=== PATIENT | female | born 1940 | race Caucasian/White ===

== ENCOUNTER 2022-06-22 10:36 | Emergency (ER) | payer MEDICARE, BC, SELFPAY ==
[2022-06-22 11:00] VITALS: BP 142/85; PULSE 77; RESP 16; TEMP 36.7; O2SAT 97; BMI 23.6
--- NOTE | 2022-06-22 11:22 | CRLHL7_ITS ---
For Patients: As a result of the Century Cures Act, medical imaging exams and procedure reports are released immediately into your electronic medical record. You may view this report before your referring provider. If you have questions, please contact your health care provider. INDICATION: Fall, closed head injury. COMPARISON: None. TECHNIQUE: CT of the head without IV contrast. Coronal and sagittal reconstructions. FINDINGS: There is a tiny hyperdense subdural hematoma along the anterior interhemispheric fissure measuring up to 3 mm in thickness (series 2, image 30 and series 8, image 20). No mass effect or midline shift. No other intracranial hemorrhage or evidence of acute infarct. Mild generalized cerebral and cerebellar volume loss with associated ex vacuo dilation of the lateral ventricles. Moderate chronic small vessel ischemic disease. Orbits and extraocular muscles are symmetric. Polyp or mucous retention cyst in the right sphenoid sinus. The paranasal sinuses and mastoid air cells are otherwise clear. No acute fracture identified. Minimal soft tissue swelling overlying the left posterior parieto-occipital bones. IMPRESSION: : 1. Tiny acute subdural hematoma along the anterior interhemispheric fissure. Consider short-term follow-up CT to ensure stability. 2. Mild generalized cerebral volume loss and moderate chronic small vessel ischemic disease. 3. Minimal soft tissue swelling overlying the left posterior parieto-occipital bones. 4. Findings discussed with Puja Cornejo at 12:43 p.m. on 06/22/2022. Please note that all CT scans at this facility use dose modulation, iterative reconstruction, and/or weight-based dosing when appropriate to reduce radiation dose to as low as reasonably achievable. Dictated by Opal Blue MD @ 06/22/2022 12:38:13 PM (Electronically Signed)
--- NOTE | 2022-06-22 11:24 | ED.GENADULT ---
HPI - General Adult General Chief complaint: Head Injury/Pain Stated complaint: Fell bleeding from back of scalp Time Seen by Provider: 06/22/22 11:06 Source: patient Mode of arrival: ambulatory Limitations: no limitations History of Present Illness HPI narrative: 82-year-old female coming in today after falling and hitting the back of her head approximately 5.5 hours ago. She was on cleaning her car and slipped fell backwards hitting her head on the sidewalk. She felt very dizzy right away but this quickly resolved within less than minute. Has not vomited or had slurred speech. She denies any neurologic deficits. However the scalp has been bleeding and she does have a headache in the back of the head. Patient has chronic neck pain, she does not feel like her pain is any worse or any different today. She does wear a soft cervical soft collar daily. She does not take any blood thinners. Related Data Home Medications Medication Instructions Recorded Confirmed B-complex with vitamin C 1 cap PO QDAY 03/03/22 06/22/22 cholecalciferol (vitamin D3) 50 2,000 unit PO DAILY 03/03/22 06/22/22 mcg (2,000 unit) tablet magnesium oxide 400 mg (241.3 mg 800 mg PO DAILY 03/03/22 06/22/22 magnesium) tablet multivitamin 1 tab PO QAM 03/03/22 06/22/22 omega-3 acid ethyl esters 1 gram 1 cap PO QDAY 03/03/22 06/22/22 capsule potassium gluconate 500 mg (83 mg) 500 mg PO QDAY 03/03/22 06/22/22 tablet simvastatin 20 mg tablet 20 mg PO .Bedtime 03/03/22 06/22/22 vit A 300 mcg-C 200 mg-E 27 1 tab PO DAILY 03/03/22 06/22/22 mg-lutein 2 mg and minerals tablet (Ocuvite with Lutein) Allergies Allergy/AdvReac Type Severity Reaction Status Date / Time No Known Allergies Allergy Verified 06/22/22 11:07 Review of Systems Status of ROS: Reports: 10 or more systems reviewed and unremarkable except as noted in History and below [facility] Medical History History of malignant neoplasm of skin History of Mohs micrographic surgery for skin cancer History of pterygium Surgical History History of appendectomy History of bunionectomy History of carpal tunnel release History of colonoscopy History of hemorrhoidectomy History of hysterectomy History of total knee replacement History of tubal ligation History of varicose vein stripping 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 Alert and oriented. Answers questions appropriately. Mood and affect are appropriate. Thoughts are goal oriented and rational. No tangential or magical thinking noted. Patient speaks in full sentences without needing to catch her breath. Speech is not slurred or pressure. HEENT: Normocephalic . Pupils are equally round reactive to light. Extraocular muscles are intact. Conjunctivae are moist without any icterus noted. Moist mucous membranes. Neck is soft. She has no tenderness to palpation of the cervical spine. She has slightly decreased range of motion but no change from her baseline as reported per patient. She does have a laceration to the back of the scalp that is no longer bleeding. Lacerations is an L shape, approximately an inch in total length. Cardiovascular: Heart is regular rate and rhythm S1 and S2 are present without any murmurs. Lungs: Clear to auscultation bilaterally no wheezes rhonchi or rales are appreciated. Patient takes deep breaths without any discomfort. Const: Vital Signs, click to edit/add: Vital Signs - 24 hr 06/22/22 11:00 06/22/22 11:30 06/22/22 12:00 Temperature 98.0 F Pulse Rate [Left P ulse Oximeter] 77 69 68 Respiratory Rate 16 18 16 Blood Pressure [Ri ght Upper Arm] 142/85 H 129/74 128/87 Pulse Oximetry 97 95 98 Oxygen Delivery Me thod Room Air Room Air Room Air Course Course Hospital Course: Proceeded to head CT. I did not see any significant pathology. Laceration was cleaned with wound cleanser and irrigated. It was anesthetized with lidocaine with epinephrine and 4 kayy were placed without difficulty. Patient was discharged home and I received a phone call from Radiology stating that she did have a very tiny subdural hematoma. I did call the patient to relate these results and spoke with both her and her daughter were in the car. We discussed the options which would include readmission to the ER in observation. However we also discussed that it has been now 7 hours since she fell and that watchful waiting at home would also be appropriate. Patient opted to stay at home with her daughter. We discussed signs and symptoms of worsening bleeding to look out for including nausea, vomiting, neurologic deficits, worsening headache. Again I did tell her that the best option would be to watch her in the hospital, however patient felt comfortable monitoring her symptoms at home. Given the size of the hematoma and her lack of symptoms I do not feel that a repeat head CT is necessary unless her symptoms evolve. Vital Signs Vital signs: Initial Vital Signs Temperature 98.0 F 06/22/22 11:00 Temperature Source Temporal Artery Scan 06/22/22 11:00 Pulse Rate 77 06/22/22 11:00 Pulse Rhythm 06/22/22 11:00 Respiratory Rate 16 06/22/22 11:00 Blood Pressure 142/85 H 06/22/22 11:00 Blood Pressure Mean 104 06/22/22 11:00 Blood Pressure Position Supine 06/22/22 11:00 Pulse Oximetry 97 06/22/22 11:00 Oxygen Delivery Method 06/22/22 11:00 Vital Signs Temperature 98.0 F 06/22/22 11:00 Pulse Rate 77 06/22/22 11:00 Respiratory Rate 16 06/22/22 11:00 Blood Pressure 142/85 H 06/22/22 11:00 Pulse Oximetry 97 06/22/22 11:00 Oxygen Delivery Method 06/22/22 11:00 Temperature 98.0 F 06/22/22 11:00 Pulse Rate 68 06/22/22 12:00 Respiratory Rate 16 06/22/22 12:00 Blood Pressure 128/87 06/22/22 12:00 Pulse Oximetry 98 06/22/22 12:00 Oxygen Delivery Method 06/22/22 12:00 Medical Decision Making MDM Narrative Medical decision making narrative: 82-year-old female status post fall with scalp laceration stapled in the ED. We discussed symptomatic treatment, signs symptoms of infection, staple removal in 5-7 days, and reasons to return for follow-up. Patient and daughter had no other questions or concerns. Tiny subdural hematoma-plan per above. Imaging Data CT scan - head: Attestation: I have reviewed the pertinent imaging results. Radiologist's impression: CT of the head without IV contrast. Coronal and sagittal reconstructions. FINDINGS: There is a tiny hyperdense subdural hematoma along the anterior interhemispheric fissure measuring up to 3 mm in thickness (series 2, image 30 and series 8, image 20). No mass effect or midline shift. No other intracranial hemorrhage or evidence of acute infarct. Mild generalized cerebral and cerebellar volume loss with associated ex vacuo dilation of the lateral ventricles. Moderate chronic small vessel ischemic disease. Orbits and extraocular muscles are symmetric. Polyp or mucous retention cyst in the right sphenoid sinus. The paranasal sinuses and mastoid air cells are otherwise clear. No acute fracture identified. Minimal soft tissue swelling overlying the left posterior parieto-occipital bones. IMPRESSION: : 1. Tiny acute subdural hematoma along the anterior interhemispheric fissure. Consider short-term follow-up CT to ensure stability. 2. Mild generalized cerebral volume loss and moderate chronic small vessel ischemic disease. 3. Minimal soft tissue swelling overlying the left posterior parieto-occipital bones. 4. Findings discussed with Puja Cornejo at 12:43 p.m. on 06/22/2022. Discharge Plan Discharge Clinical Impression: Head injury, Fall, Laceration of scalp, Subdural hematoma Patient Disposition: Home, Self-Care Condition: Improved Additional Instructions: Keep laceration clean and dry. Okay to shower like you normally would but be careful not to pull out the kayy. Watch for signs of infection which would include redness around the laceration or purulent drainage from the laceration. [place] should be removed in 5-7 days in the clinic. Okay to use Tylenol as needed/as directed for discomfort. Prescriptions: No Action cholecalciferol (vitamin D3) 50 mcg (2,000 unit) tablet 2,000 unit PO DAILY Ocuvite with Lutein 300 mcg-200 mg-27 mg-2 mg tablet 1 tab PO DAILY simvastatin 20 mg tablet 20 mg PO .Bedtime magnesium oxide 400 mg (241.3 mg magnesium) tablet 800 mg PO DAILY potassium gluconate 500 mg (83 mg) tablet 500 mg PO QDAY omega-3 acid ethyl esters 1 gram capsule 1 cap PO QDAY multivitamin Tablet 1 tab PO QAM B-complex with vitamin C Capsule 1 cap PO QDAY Follow Up/Referrals: Brii Browne, OPERATING SYSTEMS PROGRAMMER, KITCHEN WORK SUPERVISOR [Primary Care Provider] - Stand Alone Forms: [facility]
[2022-06-22 11:30] VITALS: BP 129/74; PULSE 69; RESP 18; O2SAT 95
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
--- OUTSIDE RECORDS SUMMARY | 2022-06-22 11:37 | XMS_ITS | Encounter Summary ---
:1940 Author Organization [facility] Address [address] [place] [address] Care Team Providers Name Role Phone Jeancarlos Oquendo P.A.-C. Primary Care Provider [phone] Encounter Details Date Type Department Care Team Description 10/27/2020 Ancillary Procedure Department of Dermatology Social History Tobacco Use Types Packs/Day Years [...] 05/13/2021 relatives? How often do you attend moravian or samaritan Patient refused 05/13/2021 services? Do you belong to any clubs or organizations such as Patient refused 05/13/2021 moravian groups, unions, fraternal or athletic groups, or [...] place to sleep or slept in a halfway (including now)? Education Answer Date Recorded What is the highest level of school you have completed or 12 th grade 10/02/2019 the highest degree you have received? Sex Assigned at Date Recorded Female 02/25/2018 7:29 PM CDT documented as of this encounter Plan of Treatment Not on filedocumented as of this encounter Procedures Procedure Name Priority Date/Time Associated Comments Diagnosis DERMATOLOGY IMAGE Routine 10/27/2020 12:00 Result s for this EXAM AM CDT procedure are i n the results section. documented in this encounter Results Forehead 504-Dermatology Image Exam (10/27/2020 12:00 AM CDT) Specimen (Source) Anatomical Location Collection Method / Collectio n Time Received Time / Laterality Volume Narrative IIMS - 10/27/2020 1:29 PM CDT This order has been created and auto-finalized to support the import of images acquired without order. The clini joselyn documentation to support these images can be found on the encounter gordon t produced images. Provider Not In System IMG NON RAD IMAGING PROCEDUR ES Performing Organization Address City/State/ZIP Code Phon e Number IIMS IIMS NA documented in this encounter Visit Diagnoses Not on filedocumented in this encounter Care Teams Treater Helper Relationship Specialty Start Date End Date Jeancarlos Oquendo P.A.-C. PCP - General Family Medicine 09/01/19 12/15/[address] [place] [phone] documented as of this encounter
--- OUTSIDE RECORDS SUMMARY | 2022-06-22 11:37 | XMS_ITS | Encounter Summary ---
:1940 Author Organization [facility] Address [address] [place] [address] Care Team Providers Name Role Phone Jeancarlos Oquendo P.A.-C. Primary Care Provider [phone] Reason for Referral Physical Therapy (Routine) - Closed Specialty Diagnoses / Procedures Referred By Contact Refer red To Contact Diagnoses Strain Hip Flexor Initial Right Jeancarlos Oquendo P.A.-C. [address] [place] [phone] Referral ID Status Reason Start Date Expiration Date Visits V isits Requested Authorized [id number] Closed Service not 05/13/2021 05/13/2022 99 99 available in [facility] Reason for Visit Reason Comments Follow-up groin muscle pain on right s scott. Appointment Request (Routine) - Closed Specialty Diagnoses / Procedures Referred By Contact Refer red To Contact Family Medicine Referral ID Status Reason Start Date Expiration Date Visits Requ ested Visits Authorized [id number] Closed 2021 2022 1 1 Encounter Details Date Type Department Care Team Description 05/13/2021 Office Visit Department of Jeancarlos Alanis St rain Hip Flexor Medicine, [place] Initial Right (Primary Clinic, in [place], [address] [facility] [address]) [place], [place] [address] [facility] [address] [place], [place] [phone] (Work) [phone] Social History Tobacco Use Types Packs/Day Years [...] 05/13/2021 relatives? How often do you attend scientology or druze Patient refused 05/13/2021 services? Do you belong to any clubs or organizations such as Patient refused 05/13/2021 scientology groups, unions, fraternal or athletic groups, or [...] place to sleep or slept in a assisted (including now)? Education Answer Date Recorded What is the highest level of school you have completed or 12 th grade 10/02/2019 the highest degree you have received? Sex Assigned at Date Recorded Female 02/25/2018 7:29 PM CDT documented as of this encounter Last Filed Vital Signs Vital Sign Reading Time Taken Comments Blood Pressure 132/78 05/13/2021 9:43 AM CDT average Pulse 77 05/13/2021 9:43 AM CDT Temperature 36.2 ??C (97.1 ??F) 05/13/2021 9:43 AM CDT Respiratory Rate 16 05/13/2021 9:43 AM CDT Oxygen Saturation - - Inhaled Oxygen Concentration - - Weight 66.7 kg (147 lb 0.8 oz) 05/13/2021 9:43 AM CDT Height 163 cm (5' 4.17) 05/13/2021 9:43 AM CDT Body Mass Index 25.1 05/13/2021 9:43 AM CDT documented in this encounter Progress Notes Jeancarlos Oquendo P.A.-C. - 05/13/2021 10:00 AM CDT SUBJECTIVE CHIEF COMPLAINT / REASON FOR VISIT Emma Contreras is a 81 y.o. female who presents for evaluation of Follow-up (groin muscle pain on right side.). HISTORY OF PRESENT ILLNESS Emma groin for about three months. She says that she was getting up out of a chair and moved her right leg laterally and abducted. Since that time she has had pain in her right leg she felt a significant discomfort that day and says that she felt a lump for a while and now when she goes to lift up or flex her right hip she feels significant discomfort in her groin region. OBJECTIVE Vitals: 05/13/21 0943 BP: 132/78 BP Location: Right arm Patient Position: Sitting Cuff Size: Regular Pulse: 77 Resp: 16 Temp: 36.2 ??C TempSrc: Temporal Weight: 66.7 kg Height: 163 cm Body mass index is 25.1 kg/m??. PHYSICAL EXAMINATION In general she appears in no acute distress Groin: She does have a palpable muscle spasm in her right groin. I do question if she has had a hip flexor injury with a muscle spasm. She is able to hip flex today without much discomfort an internally and externally rotate her hip. This definitely does seem to be a musculoskeletal injury I do not appreciate any further lymphadenopathy. ASSESSMENT / PLAN #1 Strain Hip Flexor Initial Right I am going to ask for further evaluation recommendations from physical medicine rehabilitation. I amalso going to put through physical therapy consult. If her symptoms worsen or not improve with this treatment she will let us know. Total time spent today 30 minute Jeancarlos Roethler, P.A.-C. documented in this encounter Plan of Treatment Not on filedocumented as of this encounter Visit Diagnoses Diagnosis Strain Hip Flexor Initial Right - Primar y documented in this encounter Care Teams Whale Trainer Relationship Specialty Start Date End Date Jeancarlos Oquendo P.A.-C. PCP - General Family Medicine 09/01/19 12/15/[address] [place] [phone] documented as of this encounter
--- OUTSIDE RECORDS SUMMARY | 2022-06-22 11:37 | XMS_ITS | Encounter Summary ---
:1940 Author Organization [facility] Address [address] [place] [address] Care Team Providers Name Role Phone Elsewhere, Pcp Primary Care Provider Unavailable Reason for Visit Reason Comments Med Refill Encounter Details Date Type Department Care Team Description 12/16/2021 Refill Department of Family Medicine, Jeancarlos [place] P.A.-C. Med Refill [facility], in [address] [place] [phone] [place] [address] [place] [address] [phone] Social History Tobacco Use Types Packs/Day Years [...] 05/13/2021 relatives? How often do you attend congregation or zoroastrian Patient refused 05/13/2021 services? Do you belong to any clubs or organizations such as Patient refused 05/13/2021 congregation groups, unions, fraternal or athletic groups, or [...] place to sleep or slept in a long-term (including now)? Education Answer Date Recorded What is the highest level of school you have completed or 12 th grade 10/02/2019 the highest degree you have received? Sex Assigned at Date Recorded Female 02/25/2018 7:29 PM CDT documented as of this encounter Miscellaneous Notes Telephone Encounter - Chaya Gamboa L.P.NBrant - 12/16/2021 10:27 AM CDT SUBJECTIVE CHIEF COMPLAINT / REASON FOR CALL Med Refill Information Discussed Called and informed patient of the information below and she is switching to the clinic in [place] for her care now. Please change PCP to elsewhere. PLAN Disposition/Recommendation: self-care is appropriate at this time, patient encouraged to call back with questions Information/Education: patient/caller able to teach back Caller agreeable to plan of care: yes The following references were used: provider Jeancarlos Telephone Encounter - Jeancarlos Oquendo P.A.-C. - 12/16/2021 10:20 AM CDT I will give her one refill but she is overdue for a visit and blood work documented in this encounter Plan of Treatment Not on filedocumented as of this encounter Visit Diagnoses Not on filedocumented in this encounter Care Teams Assembler Fluorescent Lights Relationship Specialty Start Date End Date Elsewhere, Pcp PCP - General Internal Medicine 12/16/21 documented as of this encounter
--- OUTSIDE RECORDS SUMMARY | 2022-06-22 11:37 | XMS_ITS | Encounter Summary ---
:1940 Author Organization [facility] Address [address] [place] [address] Care Team Providers Name Role Phone Jeancarlos Oquendo P.A.-C. Primary Care Provider [phone] Reason for Visit Outpatient (Routine) - Closed Specialty Diagnoses / Procedures Referred By Contact Refer red To Contact Dermatology Diagnoses Malignant Neoplasm Of Ear Basal Cell Carcinoma Left Mark Munoz M.D. [facility] Procedures LUISITO MOHS 1-4 sites [address] [place] [address] Referral ID Status Reason Start Date Expiration Date Visits Requ ested Visits Authorized [id number] Closed 02/09/2020 02/08/2021 1 1 Encounter Details Date Type Department Care Team Description 03/25/2020 Procedure visit Department of Rashaad Harrell Malignant Neoplasm Of Dermatology sheila Lovell M.D., M.S. Ear Basal Cell [place], [place] [address] [facility] Carcinoma Left [address] [place] [phone] Social History Tobacco Use Types Packs/Day Years [...] 05/13/2021 relatives? How often do you attend roman catholic or yarsani Patient refused 05/13/2021 services? Do you belong to any clubs or organizations such as Patient refused 05/13/2021 roman catholic groups, unions, fraternal or athletic groups, or [...] place to sleep or slept in a senior living (including now)? Education Answer Date Recorded What is the highest level of school you have completed or 12 th grade 10/02/2019 the highest degree you have received? Sex Assigned at Date Recorded Female 02/25/2018 7:29 PM CDT documented as of this encounter Last Filed Vital Signs Vital Sign Reading Time Taken Comments Blood Pressure 125/66 03/25/2020 8:00 AM CDT Pulse 58 03/25/2020 8:00 AM CDT Temperature - - Respiratory Rate - - Oxygen Saturation - - Inhaled Oxygen Concentration - - Weight - - Height - - Body Mass Index - - documented in this encounter Procedure Notes Marco Matias M.D. - 03/25/2020 8:00 AM CDT PREOP INDICATION: REMOVAL. Date of Surgery: 03/25/2020 Surgeon: Dr. Harrell Panel Instrument Repairer: Dr. Matias Location: [facility]: Floor:16 Room:[facility] Visit Type: Outpatient PostOp Diagnosis: Nodular basal cell carcinoma Anatomic Location: Left posterior ear Preoperative size: 1.1 x 0.9 cm [facility] number: 9 Indication(s) for Mohs Micrographic Surgery: anatomic location where tissue conservation is critical Procedure(s): Mohs micrographic surgery with intermediate layered closure Prior to the procedure, final verification of the patient identity and correct marked surgical site was performed. Procedural pause conducted to verify: correct patient identity, procedure to be performed and as applicable, correct side and site, correct patient position, and availability of implants, special equipment or special requirements. INFORMED CONSENT Discussed the risks, benefits, alternatives, and the necessity of other members of the healthcare team participating in the procedure. All questions answered and consent given. PATIENT EDUCATION Ready to learn, no apparent learning barriers were identified; learning preferences include listening. Explained diagnosis and treatment plan; patient expressed understanding of the content. Preoperative medications: None The anesthesia used was 1% lidocaine and 0.25% bupivacaine with 1:200,000 epinephrine. The skin was prepped in a sterile fashion with Hibiclens. Histologic tumor-free margins were obtained in 1 stages (1 blocks) by standard Mohs micrographic techniques with the Mohs surgeon performing both the surgery and pathology. The final defect depth was down to level of: subcutaneous fat. Postoperative size: 1.8 x 1.4 cm. Anesthesia with 1% lidocaine with 1:200,000 epinephrine and another sterile prep were performed. An intermediate layered closure was planned, and Burow's triangles were excised from opposite poles of the defect in the direction of the skin tension lines. The wound was undermined as needed, and hemostasis was obtained with electrocoagulation. The wound edges were closed with 4-0 Vicryl, 5 0 Monocryl subcutaneous sutures and 5 0 surgical gut skin sutures. Postoperative length: 3.9 cm. Estimated blood loss: Minimal. Complications: None. Wound care: Routine. Postoperative medications: None documented in this encounter Consult Notes Marco Matias M.D. - 03/25/2020 8:00 AM CDT Referral Mark uMnoz M.D. Chief Complaint Basal cell carcinoma on the left lower posterior ear Supervised by Dr. Harrell HISTORY OF PRESENT ILLNESS is a very pleasant 79 y.o. female who presents today for treatment of basal cell carcinoma on the left lower posterior ear. The dermatologic surgery preoperative information sheet was reviewed. The patient has history of previous nonmelanoma skin cancer, hypertension, right knee replacement in March of 2018. The patient denies history of other heart disease, pacemaker, defibrillator, lung disease, liver disease, stroke, in fectious diseases (including hepatitis B, hepatitis C, or HIV), diabetes, organ transplant, bleedingor healing problems. The patient denies tobacco use and endorses occasional alcohol use. The patienttakes Aleve but otherwise does not take any blood thinners. PHYSICAL EXAM Vitals: BP 125/66, HR 58 General: Awake, alert, in no acute distress, and with appropriate affect. Skin: A limited skin examination of the forehead and left lower posterior ear was performed per patient preference. On the left lower posterior ear, there was a 1.1 x 0.9 cm well-healed scar from previous biopsy. On the forehead, there were stuck on light brown papules. IMPRESSION/REPORT/PLAN #1 Basal cell carcinoma on the left lower posterior ear We discussed with the patient our recommendation for Mohs micrographic surgery to treat this today. We discussed the risks of pain, infection, bleeding, dysesthesia, lesion recurrence, activity limitations. The patient understands that there will be a scar at this site. We discussed potential reconstru ction/wound healing options. The patient elected to proceed with Mohs surgery today. Please see the operative note for further detail. 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 PROCEDURAL PAUSE Procedural pause conducted to verify: correct patient identity, procedure to be performed, and as applicable, correct side and site, correct patient position, and availability of implants, special equipment, or special requirements. PATIENT EDUCATION Ready to learn. No apparent learning barriers were identified. Learning preferences include listening. Explained diagnosis and treatment plan; patient/guardian of patient expressed understanding of thecontent. INFORMED CONSENT Discussed the risks, benefits, alternatives, and the necessity of other members of the healthcare team participating in the procedure. All questions answered and consent given. Associated attestation - Rashaad Harrell M.D., M.S. - 03/25/2020 12:23 PM CDT Assisted by: Dr. Matias and Dr. Braden. I have heard the history and seen and examined the patient with him/her. I agree with the impressionand plan as discussed in his/her note. I participated in the entire case, including outlining of the Mohs margins, review of the slides, and design and execution of the repair. For further details, please refer to the clinic note and operative note. documented in this encounter Plan of Treatment Not on filedocumented as of this encounter Visit Diagnoses Diagnosis Malignant Neoplasm Of Ear Basal Cell Car cinoma Left documented in this encounter Administered Medications Inactive Administered Medications - up to 3 most recent administrations Medication Order MAR Action Action Date Dose Rate Site pviyxzipvxo-[id number] Given 03/25/2020 9:37 AM CDT 4 mL 0.25%-1%-1:200,000 injection 2-25 mL 2-25 mL, injection, As needed, may repeat if the patient complains of pain/discomfort at the site up to 50 mL for entire procedure, Starting on Ghazal 03/25/20 at 0812, For 1 day Given 03/25/2020 8:45 AM CDT 2 mL lidocaine-EPINEPHrine 1%-1:200,000 injection Given 03/25/2020 8: 45 AM CDT 2 mL 2-50 mL (XYLOCAINE W/EPI) 2-50 mL, injection, As needed, may repeat if the patient complains of pain/discomfort at the site up to 50 mL for entire procedure, Starting on Ghazal 03/25/20 at 0812, For 1 day documented in this encounter Care Teams Investment Underwriter Relationship Specialty Start Date End Date Jeancarlos Oquendo P.A.-C. PCP - General Family Medicine 09/01/19 12/15/[address] [place] [phone] documented as of this encounter
--- OUTSIDE RECORDS SUMMARY | 2022-06-22 11:37 | XMS_ITS | Encounter Summary ---
:1940 Author Organization [facility] Address [address] [place] [address] Care Team Providers Name Role Phone Jeancarlos Oquendo P.A.-C. Primary Care Provider Encounter Details Date Type Department Care Team Description 03/25/2020 Ancillary Procedure Department of Dermatology Social History [...] 05/13/2021 relatives? How often do you attend mu-ism or christian Patient refused 05/13/2021 services? Do you belong to any clubs or organizations such as Patient refused 05/13/2021 mu-ism groups, unions, fraternal or athletic groups, or [...] place to sleep or slept in a custodial (including now)? Education Answer Date Recorded What is the highest level of school you have completed or 12 th grade 10/02/2019 the highest degree you have received? Sex Assigned at Date Recorded Female 02/25/2018 7:29 PM CDT documented as of this encounter Plan of Treatment Not on filedocumented as of this encounter Procedures Procedure Name Priority Date/Time Associated Comments Diagnosis DERMATOLOGY IMAGE Routine 03/25/2020 12:15 Result s for this EXAM PM CDT procedure are i n the results section. documented in this encounter Results neck, left postauricular 9 Mohs micrographic surgery-Dermatology Image Exam (03/25/2020 12:15 PM CDT) Specimen (Source) Anatomical Collection Method Collection Time Re ceived Time Location / / Volume Laterality 03/25/2020 12:00 PM CDT Narrative IIMS - 03/25/2020 1:16 PM CDT This order has been created [...] on filedocumented in this encounter Care Teams Tailing Machine Operator Relationship Specialty Start Date End Date Jeancarlos Oquendo P.A.-C. PCP - General Family Medicine 09/01/19 12/15/21 [address] [place] [phone] documented as of this encounter
--- OUTSIDE RECORDS SUMMARY | 2022-06-22 11:37 | XMS_ITS | Encounter Summary ---
:1940 Author Organization [facility] Address [address] [place] [address] Care Team Providers Name Role Phone Jeancarlos Oquendo P.A.-C. Primary Care Provider [phone] Encounter Details Date Type Department Care Team Description 08/31/2020 Orders Only [facility] PCP [facility] Sa pricila Reeves M.D. [address] [place], [place] [phone] (Wo rk) Social History Tobacco Use Types Packs/Day Years [...] 05/13/2021 relatives? How often do you attend pentecostal or orthodoxy Patient refused 05/13/2021 services? Do you belong to any clubs or organizations such as Patient refused 05/13/2021 pentecostal groups, unions, fraternal or athletic groups, or [...] place to sleep or slept in a skilled nursing (including now)? Education Answer Date Recorded What is the highest level of school you have completed or 12 th grade 10/02/2019 the highest degree you have received? Sex Assigned at Date Recorded Female 02/25/2018 7:29 PM CDT documented as of this encounter Plan of Treatment Not on filedocumented as of this encounter Visit Diagnoses Not on filedocumented in this encounter Care Teams Icu Manager Relationship Specialty Start Date End Date Jeancarlos Oquendo P.A.-C. PCP - General Family Medicine 09/01/19 12/15/[address] [place] [phone] documented as of this encounter
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
--- OUTSIDE RECORDS SUMMARY | 2022-06-22 11:37 | XMS_ITS | Encounter Summary ---
:[address] [facility] Address [address] [place] [address] Care Team Providers Name Role Phone Jeancarlos Oquendo P.A.-C. Primary Care Provider [phone] Reason for Visit Outpatient (Routine) - Closed Specialty Diagnoses / Procedures Referred By Contact Refer red To Contact Dermatology Diagnoses Lesion Skin Jeancarlos Oquendo P.A.-C. [place] [address] [place] [address] Referral ID Status Reason Start Date Expiration Date Visits V isits Requested Authorized [id number] Closed Specialty 03/31/2021 03/31/2022 1 1 Services Required Encounter Details Date Type Department Care Team Description 04/07/2021 Comprehensive Visit Department of Nelly Carmen Kerato sis Actinic (Primary Dx); Dermatology in [place], [facility], Keratosis Ty orrheic Inflamed; [place], [place] Licha Keratosis Seborrheic [address] [facility] [address] [place] [phone] Social History Tobacco Use Types Packs/Day Years [...] 05/13/2021 relatives? How often do you attend worship or pentecostal Patient refused 05/13/2021 services? Do you belong to any clubs or organizations such as Patient refused 05/13/2021 worship groups, unions, fraBrain Parade or athletic groups, or school groups? How [...] place to sleep or slept in a chcf (including now)? Education Answer Date Recorded What is the highest level of school you have completed or 12 th grade 10/02/2019 the highest degree you have received? Sex Assigned at Date Recorded Female 02/25/2018 7:29 PM CDT documented as of this encounter Consult Notes Nelly Carmen P.A.-C. - 04/07/2021 11:20 AM CDT REFERRED BY Jeancarlos Oquendo P.A.-C. CHIEF COMPLAINT/REASON FOR VISIT Skin lesion Patient seen and discussed with supervising packaging sales consultant, Dr. Clark, who evaluated the patient and concurs with the assessment and plan. HISTORY OF PRESENT ILLNESS Ms. Emma Contreras is a pleasant 80 y.o. female who presents today for evaluation of a skin lesion. Patient has a lesion of concern on her left scientology today. This lesion was frozen at her last visit at [facility] D[facility] in October of 2020 as an irritated seborrheic keratosis. Patient reports this lesion has remained tender and she is wondering if she can have treatment again today. Patient has history of multiple nonmelanoma skin cancers. Allergies Allergen Reactions ??? Latex Other (see comments) Only reacts to powdered latex gloves PAST MEDICAL HISTORY Negative for skin cancer FAMILY HISTORY Negative for skin cancer PHYSICAL EXAM General: Awake, alert, in no acute distress, and with appropriate affect. Skin: I have examined the face per patient request. Simeon skin type II. Involving the right jawline and left scientology are pink to red macules with overlying adherent scale consistent with actinic keratoses. Involving patients lesion of concern on her left scientology is a waxy, inflamed, brown, stuck on papule consistent with inflamed seborrheic keratosis. Involving right scientology is a waxy, inflamed, brown, stuck on papule. IMPRESSION/REPORT/PLAN #1 Actinic Keratoses x 2, cryotherapy performed, right jawline and left scientology Actinic keratoses are pre-cancerous skin growths caused by sun exposure. Treatment is recommended and medically indicated. A total of 2 actinic keratosis were treated with liquid nitrogen. Location: Right jawline and left times. After explaining the procedure, discussing the associated risks, benefits, and alternatives, and obtaining verbal informed consent, the lesion(s) underwent treatment with liquid nitrogen cryotherapy inthe standard fashion with two freeze-thaw cycles. The patient tolerated the procedure well. Aftercare instructions were provided in writing and verbal form to the patient. Should any of these lesions recur, the patient should return for biopsy or further evaluation. #2 Inflamed seborrheic keratosis A total of 2 inflamed seborrheic keratosis were treated with liquid nitrogen cryotherapy on the lefttemple and right scientology. After explaining the procedure, discussing the associated risks, benefits, and alternatives, and obtaining verbal informed consent, the lesion(s) underwent treatment with liquid nitrogen cryotherapy inthe standard fashion. Wound care was discussed. Patient offered educational materials. #3 Seborrheic keratoses The benign nature of the skin lesion(s) was discussed with the patient. No treatment is required. I recommend continued observation. Should symptoms or changes develop related to this condition, I would recommend a return visit for reassessment. PATIENT EDUCATION Ready to learn. No apparent learning barriers were identified. Learning preferences include listening. Explained diagnosis and treatment plan; patient/guardian of patient expressed understanding of thecontent. Associated attestation - Mely Clark M.D. - 04/07/2021 11:46 AM CDT I have reviewed the history, saw and evaluated the patient, discussed the management, and agree withthe impression and plan as documented by Nelly Carmen P.A.-C. I was immediately available for theentirety of the procedure(s) and present for the payan and critical portions. documented in this encounter Plan of Treatment Not on filedocumented as of this encounter Visit Diagnoses Diagnosis Keratosis Actinic - Primary Keratosis Seborrheic Inflamed Keratosis Seborrheic documented in this encounter Care Teams Dairy Feed Worker Relationship Specialty Start Date End Date Jeancarlos Oquendo P.A.-C. PCP - General Family Medicine 09/01/19 12/15/[address] [place] [phone] documented as of this encounter
--- OUTSIDE RECORDS SUMMARY | 2022-06-22 11:37 | XMS_ITS | Encounter Summary ---
:1940 Author Organization [facility] Address [address] [place] [address] Care Team Providers Name Role Phone Jeancarlos Oquendo P.A.-C. Primary Care Provider [phone] Reason for Visit Reason Onset Date Comments Outpatient COVID-19 Testing 06/15/2020 Encounter Details Date Type Department Care Team Description 06/15/2020 External Outreach Department of Kurt Dominique Infect ion [facility] Internal Medicine in [place], D[place]. Respiratory (Primary [place], [place] [address] Dx) [address] [place] [phone] Social History Tobacco Use Types Packs/Day Years [...] 05/13/2021 relatives? How often do you attend mandaen or taoism Patient refused 05/13/2021 services? Do you belong to any clubs or organizations such as Patient refused 05/13/2021 mandaen groups, unions, fraternal or athletic groups, or [...] place to sleep or slept in a fdc (including now)? Education Answer Date Recorded What is the highest level of school you have completed or 12 th grade 10/02/2019 the highest degree you have received? Sex Assigned at Date Recorded Female 02/25/2018 7:29 PM CDT documented as of this encounter Progress Notes Julio Dominguez, RBrantMCaroline - 06/15/2020 3:43 PM CST Encounter created for the drive-through COVID-19 testing. OGRAPH INSPECTOR documented in this encounter Miscellaneous Notes Addendum Note - Julio Dominguez R.MCaroline - 06/15/2020 3:43 PM PHOTOGRAPH INSPECTOR Addended by: JULIO DOMINGUEZ on: 06/15/2020 07:28 PM Modules accepted: Orders OGRAPH INSPECTOR documented in this encounter Plan of Treatment Not on filedocumented as of this encounter Visit Diagnoses Diagnosis Infection Upper Respiratory - Primary documented in this encounter Additional Health Concerns Infection Onset Date Last Indicated Resolved Time COVID19 Pending 06/15/2020 06/15/2020 06/15/2020 7:28 PM PHOTOGRAPH INSPECTOR documented as of this encounter Care Teams Felt Hanger Relationship Specialty Start Date End Date Jeancarlos Oquendo P.A.-C. PCP - General Family Medicine 09/01/19 12/15/21 [address] [facility] [place] [phone] documented as of this encounter
--- OUTSIDE RECORDS SUMMARY | 2022-06-22 11:37 | XMS_ITS | Encounter Summary ---
:1940 Author Organization [facility] Address [address] [place] [address] Care Team Providers Name Role Phone Jeancarlos Oquendo P.A.-C. Primary Care Provider [phone] Encounter Details Date Type Department Care Team Description 05/02/2021 Orders Only [facility] Sa pricila Reeves M.D. [address] [place], [place] [phone] (Wo rk) Social History [...] How often do you attend mu-ism or gnosticist Patient refused 05/13/2021 services? Do you belong [...] place to sleep or slept in a m[facility] (including now)? Education Answer Date Recorded What is the highest level of school you have completed or 12 th grade 10/02/2019 the highest degree you have received? Sex Assigned at Date Recorded Female 02/25/2018 7:29 PM CDT documented as of this encounter Plan of Treatment Not on filedocumented as of this encounter Visit Diagnoses Not on filedocumented in this encounter Care Teams Natural Resources Technician Relationship Specialty Start Date End Date Jeancarlos Oquendo P.A.-C. PCP - General Family Medicine 09/01/19 12/15/[address] [place] [phone] documented as of this encounter
--- OUTSIDE RECORDS SUMMARY | 2022-06-22 11:37 | XMS_ITS | Encounter Summary ---
:1940 Author Organization [facility] Address [address] [place] [address] Care Team Providers Name Role Phone Jeancarlos Oquendo P.A.-C. Primary Care Provider [phone] Encounter Details Date Type Department Care Team Description 06/02/2020 Clinical Communication Department of Leni Parrish, Internal Medicine in [facility], [place] D.N.P. [address] [place] [phone] Social History Tobacco Use Types Packs/Day Years [...] 05/13/2021 relatives? How often do you attend islam or hindu Patient refused 05/13/2021 services? Do you belong to any clubs or organizations such as Patient refused 05/13/2021 islam groups, unions, fraternal or athletic groups, or [...] this encounter Miscellaneous Notes Telephone Encounter - Becki Tinoco R.N. - 06/10/2020 10:40 AM SPECIAL EQUIPMENT TECHNICIAN Call returned to patient and patient reached by phone. Informed that her external lab workfrom 05/09/20 look good and per Leni Parrish, she should hold all of her supplements the morning of her procedure and her stop her fish oil 5 days prior to her procedure. Patient verbalized understanding and agreement with instructions. IAL EQUIPMENT TECHNICIAN Telephone Encounter - Nydia Ravi - 06/10/2020 8:21 AM CST [phone] please call IAL EQUIPMENT TECHNICIAN Telephone Encounter - Carina Cote, L.P.N. - 06/09/2020 9:41 AM SPECIAL EQUIPMENT TECHNICIAN Left message to call back . IAL EQUIPMENT TECHNICIAN Telephone Encounter - Grisel Nevarez - 06/08/2020 5:45 PM CST Reason for Communication: Patient is returning a call to the nurse Current Phone Number: [phone] Can Nursing/Provider leave a detailed message?: yes Did the patient refuse triage through Nurse line? (for symptom based concerns): na Action Needed: Please advise Name of Medication (if relevant): IAL EQUIPMENT TECHNICIAN Telephone Encounter - Roxann Beraden L.P.N. - 06/07/2020 4:36 PM SPECIAL EQUIPMENT TECHNICIAN Message left for patient to return my call. IAL EQUIPMENT TECHNICIAN Telephone Encounter - Leni Parrish APRN C.N.PBrant, D.N.P. - 06/07/2020 12:40 PM CST Reviewed lab work from external lab on 05/09 and they look good. She should hold all of her supplements the morning of her procedure. Stop fish oil 5 days prior. Please let me know if there are any other questions or concerns IAL EQUIPMENT TECHNICIAN Telephone Encounter - Carina Cote L.P.N. - 06/07/2020 12:35 PM SPECIAL EQUIPMENT TECHNICIAN SUBJECTIVE CHIEF COMPLAINT / REASON FOR CALL No chief complaint on file. Information Discussed Patient states she did have pre op labs recently. Patient is also wondering what medications she should hold prior to surgery. Please advise. PLAN Disposition/Recommendation: notified provider and awaiting recommendations Information/Education: patient/caller able to teach back Caller agreeable to plan of care: yes The following references were used: provider Shivani IAL EQUIPMENT TECHNICIAN Telephone Encounter - Boni Butts - 06/02/2020 5:33 PM CDT Patient called in, returning call from [facility] nurse. Unable to get a hold of nurse. Please call patientback. Telephone Encounter - Roxann Bearden L.P.N. - 06/02/2020 4:44 PM CDT Message left for patient to return my call. Telephone Encounter - Leni Parrish APRN C.N.P., D.N.P. - 06/02/2020 3:57 PM CDT Can you please contact patient and find out if she did her labs for her preop exam today. If not shewill need to come back to have these done before I can clear her for her surgery. She can have labs done either here or in [place] whichever is easier for her. Thank you documented in this encounter Plan of Treatment Not on filedocumented as of this encounter Visit Diagnoses Not on filedocumented in this encounter Care Teams Alloy Weigher Relationship Specialty Start Date End Date Jeancarlos Oquendo P.A.-C. PCP - General Family Medicine 09/01/19 12/15/[address] [place] [phone] documented as of this encounter
--- OUTSIDE RECORDS SUMMARY | 2022-06-22 11:37 | XMS_ITS | Encounter Summary ---
:[address] [facility] Address [address] [place] [address] Care Team Providers Name Role Phone Jeancarlos Oquendo P.A.-C. Primary Care Provider [phone] Encounter Details Date Type Department Care [...] How often do you attend mandaen or baptist Patient refused 05/13/2021 services? Do you belong [...] place to sleep or slept in a nursing home (including now)? Education Answer Date Recorded What [...] Associated Comments Diagnosis DERMATOLOGY IMAGE Routine 03/25/2020 12:05 Result s for this EXAM PM CDT procedure are i n the results section. documented in this encounter Results neck, left postauricular 9 Mohs micrographic surgery-Dermatology Image Exam (03/25/2020 12:05 PM CDT) Specimen (Source) Anatomical Collection Method [...] on filedocumented in this encounter Care Teams Cripple Worker Relationship Specialty Start Date End Date Jeancarlos Oquendo P.A.-C. PCP - General Family Medicine 09/01/19 12/15/21 [address] [place] [phone] documented as of this encounter
--- OUTSIDE RECORDS SUMMARY | 2022-06-22 11:37 | XMS_ITS | Encounter Summary ---
:1940 Author Organization [facility] Address [address] [place] [address] Care Team Providers Name Role Phone Jeancarlos Oquendo P.A.-C. Primary Care Provider Reason for Visit Reason Comments Pre-op Exam Appointment Request (Routine) - Closed Specialty Diagnoses / Procedures Referred By Contact Refer red To Contact Community Internal Medicine Referral ID Status Reason Start Date Expiration Date Visits Requ ested Visits Authorized [id number] Closed 05/25/2020 05/25/2021 1 1 Encounter Details Date Type Department Care Team Description 06/02/2020 Comprehensive Visit Department of Leni Parrish Pre erative Exam Internal Medicine L, BRISKET PULLER, (Primary D x) in [place], C.N.PBrant, D.N.P[address] [place] [phone] Social History Tobacco Use Types Packs/Day Years [...] 05/13/2021 relatives? How often do you attend confucianism or adventist Patient refused 05/13/2021 services? Do you belong to any clubs or organizations such as Patient refused 05/13/2021 confucianism groups, unions, fraternal or athletic groups, or [...] place to sleep or slept in a prison (including now)? Education Answer Date Recorded What is the highest level of school you have completed or 12 th grade 10/02/2019 the highest degree you have received? Sex Assigned at Date Recorded Female 02/25/2018 7:29 PM CDT documented as of this encounter Last Filed Vital Signs Vital Sign Reading Time Taken Comments Blood Pressure 139/70 06/02/2020 1:42 PM CDT Pulse 63 06/02/2020 1:42 PM CDT Temperature 36 ??C (96.8 ??F) 06/02/2020 1:42 PM CDT Respiratory Rate 16 06/02/2020 1:42 PM CDT Oxygen Saturation - - Inhaled Oxygen Concentration - - Weight 64.9 kg (143 lb 1.3 oz) 06/02/2020 1:42 PM CDT Height - - Body Mass Index 24.52 10/02/2019 9:37 AM WAREHOUSE ORDER PULLER documented in this encounter Patient Instructions Patient InstructionsLeni Parrish APRN, C.N.P., D.N.P. - 06/02/2020 1:30 PM CDT Call us with the fax number for your surgery team. Ask to talk to the nurse documented in this encounter Progress Notes Leni Parrish APRN, C.N.P., Liliya.N.P. - 06/02/2020 1:30 PM CDT SUBJECTIVE CHIEF COMPLAINT Preoperative exam Emma is a very pleasant 80 y.o. female who presents for Preoperative exam Procedure being done: Left and right cataract surgery Planned Procedure date: 06/21/2020 the left eye, 06/28/2020 right eye Location: [facility] Recent major Illnesses: None Activity tolerance: METS >4 able to walk flight of stairs without any chest pain or shortness of breath. COPD/Asthma:No history of COPD/Asthma and Denies and shortness of breath or upper respiratory symptoms Obstructive sleep apnea:No known history of obstructive sleep apnea Diabetes:No history of diabetes Hypertension: No history of hypertension not currently on medications and Blood pressure today is 139/70 CAD:No history of coronary artery disease and Denies any chest pain CHF:No history of CHF, denies any shortness of breath, denies any recent sudden weight gain and denies any increased swelling Bleeding/thrombosis:Denies any increased bleeding or bruising, not currently on any antiplatelet or anticoagulation medications and no history of clotting Skin:Denies any new cuts, scraps or wounds Renal:No history of renal dysfunction Last menstrual period:Postmenopausal SOCIAL HISTORY Tobacco: denies current tobacco use ETOH: denies current alcohol use Drugs: Denies any drug use Transportation: daughter will be transporting to and from the procedure Glasses/contacts: Wears glasses Hearing aids: none Dentures: full upper and full lower PAST MEDICAL HISTORY Patient Active Problem List Diagnosis ??? Varicose Vein Lower Extremity Bilateral ??? Primary Osteoarthritis Multiple Sites ??? Gastroesophageal Reflux Disease Without Esophagitis ??? Hyperlipidemia Mixed ??? Anxiety PAST SURGICAL HISTORY Past anesthesia reactions: No known history of anesthesia reaction. Past Surgical History: Procedure Laterality Date ??? APPENDECTOMY ??? DECOMPRESSION OF MEDIAN NERVE N/A 2014 Carpal tunnel release ??? EXCISION OF BUNION N/A Bunionectomy ??? HEMORRHOIDECTOMY N/A 12/19/2003 Hemorrhoidectomy ??? HYSTERECTOMY ??? LIGATION OF FALLOPIAN TUBE N/A 08/20/1990 Tubal ligation ??? OTHER CONVERTED SHX (SEE COMMENT) N/A 10/12/2016 >Mohs micrographic surgery with partial primary closure. ??? OTHER SURGICAL HISTORY N/A 07/14/2016 Pterygium excision ??? TOTAL KNEE ARTHROPLASTY Right 03/26/2018 ??? VARICOSE VEIN STRIPPING N/A 04/22/2008 Varicose vein stripping FAMILY HISTORY No family history of anesthesia reactions. Family History Relation Problem Comments Mother ( at age 60) MVA - Motor vehicle accident Father () Aneurysm AAA Coronary artery disease Sister (Alive) Hypertension Sister - jennifer () Cancer Coronary artery disease Hyperlipidemia Hypertension Brother () Malnutrition Six weeks of age Daughter - nichol (Alive) Hypertension Daughter - Oziel (Alive) Hypertension Daughter - kasia (Alive) Cancer Hypertension Aunt - Maternal (Alive) TB - Pulmonary tuberculosis CURRENT MEDICATIONS Reviewed patient???s medication list and indicated medications that should be taken day of surgery and which should be held. Advised no use of over the counter NSAIDs or supplements at least 5 days prior to surgery. Current Outpatient Medications Medication Sig ??? cholecalciferol, vitamin D3, (cholecalciferol) 1,000 Unit tablet Take 1,000 Units by mouth daily. ??? ketorolac (ACULAR) 0.5 % ophthalmic solution ??? MAGNESIUM ORAL Take by mouth daily. ??? meclizine (ANTIVERT) 12.5 mg tablet TK 2 TS PO TID PRF VERTIGO OR DIZZINESS ??? omega 9-jjh-ijl-fish oil 1,000 mg (120 mg-180 mg) capsule Take by mouth daily. ??? polymyxin B-trimethoprim (POLYTRIM) 10,000 unit- 1 mg/mL ophthalmic solution ??? prednisoLONE acetate (PRED FORTE) 1 % ophthalmic suspension ??? UNABLE TO FIND daily. Prevagen ??? vitamin A,C,C-btuami-sxbvtgrv (OCUVITE W/LUTEIN) 1,000 Unit-200 mg-60 Unit-2 mg tablet Take 1 tablet by mouth 2 (two) times a day. ??? acetaminophen (TYLENOL) 325 mg tablet Take 325 mg by mouth every 4 (four) hours as needed for pain. Generally 1 dose on a rare basis ALLERGIES Allergies Allergen Reactions ??? Latex Other (see comments) Only reacts to powdered latex gloves Constitutional: Negative for fatigue and fever. Skin: Negative for skin rash. Eyes: Negative for visual problems. Respiratory: Negative for coughing up mucus (phlegm), dry cough, dyspnea, sleep disturbances due to breathing and wheezing. Cardiovascular: Negative for chest pain, pressure or tightness, swelling in the legs or feet and shortness of breath when lying flat. Gastrointestinal: Negative for abdominal (belly) pain or cramping, blood in stool, constipation, diarrhea, nausea, vomiting and difficulty swallowing. Genitourinary: Negative for difficulty urinating and pain with urination. Hematologic: Negative for bruises or bleeds easily. Psychiatric/Behavioral: Negative for stop breathing, choking, or gasping while asleep. OBJECTIVE Constitutional General: She is not in acute distress. Appearance: She is well-developed. She is not diaphoretic. HENT Head: Normocephalic and atraumatic. Nose: Nose normal. Mouth/Throat: Pharynx: No oropharyngeal exudate. Eyes Pupils: Pupils are equal, round, and reactive to light. Neck Musculoskeletal: Normal range of motion and neck supple. Trachea: No tracheal deviation. Cardiovascular Rate and Rhythm: Normal rate and regular rhythm. Heart sounds: Normal heart sounds. No murmur. No friction rub. No gallop. Pulmonary Effort: Pulmonary effort is normal. No respiratory distress. Breath sounds: Normal breath sounds. No wheezing or rales. Musculoskeletal Normal range of motion. Skin General: Skin is warm and dry. Neurological Mental Status: She is alert and oriented to person, place, and time. Psychiatric Behavior: Behavior normal. VITAL SIGNS: BP 139/70 (BP Location: Right arm, Patient Position: Sitting, Cuff Size: Regular) Pulse 63 Temp 36 ??C (Temporal) Resp 16 Wt 64.9 kg BMI 24.52 kg/m?? ASSESSMENT / PLAN 1. Preoperative Exam Cardiovascular risk: no history of CAD, no history of CFH, denies chest pain and no history of hypertension with a blood pressure today of 139/70 Airway risk: no history of COPD, no history of Asthma, denies any shortness of breath, denies any respiratory symptoms and no history of obstructive sleep apnea Bleeding/clotting risk: no known increased risk, not currently on any antiplatelet or anticoagulation medications and no history of clotting risk:postmenopausal Dorthea is medically optimized for this procedure. No further workup necessary at this time. - CBC with Differential, Blood; Future - Basic Metabolic Panel; Future - ECG 12 Lead; Future documented in this encounter Plan of Treatment Not on filedocumented as of this encounter Visit Diagnoses Diagnosis Preoperative Exam - Primary documented in this encounter Care Teams Machine Clothing Worker Relationship Specialty Start Date End Date Jeancarlos Oquendo P.A.-C. PCP - General Family Medicine 09/01/19 12/15/21 [address] [place] [phone] documented as of this encounter
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
--- OUTSIDE RECORDS SUMMARY | 2022-06-22 11:37 | XMS_ITS | Encounter Summary ---
:1940 Author Organization [facility] Address [address] [place] [address] Care Team Providers Name Role Phone Kemar Oquendo P.A.-C. Primary Care Provider [phone] Reason for Referral Outpatient (Routine) - Closed Specialty Diagnoses / Procedures Referred By Contact Refer red To Contact Dermatology Diagnoses Lesion Skin Kemar Oquendo P.A.-C. [facility] [address] [place] [phone] Referral ID Status Reason Start Date Expiration Date Visits V isits Requested Authorized [id number] Closed Specialty 03/31/2021 03/31/2022 1 1 Services Required Reason for Visit Reason Comments Referral Encounter Details Date Type Department Care Team Description 03/30/2021 Clinical Communication [facility], [place] MODE C.NBrantPBrant [facility], in [address] [address] Social History Tobacco Use Types Packs/Day Years [...] 05/13/2021 relatives? How often do you attend sikh or pentecostalism Patient refused 05/13/2021 services? Do you belong to any clubs or organizations such as Patient refused 05/13/2021 sikh groups, unions, fraternal or athletic groups, or [...] place to sleep or slept in a longterm (including now)? Education Answer Date Recorded What is the highest level of school you have completed or 12 th grade 10/02/2019 the highest degree you have received? Sex Assigned at Date Recorded Female 02/25/2018 7:29 PM CDT documented as of this encounter Miscellaneous Notes Telephone Encounter - Zaida López - 04/01/2021 9:08 AM CDT She is scheduled with [place] Addendum Note - Kemar Oquendo P.A.-C. - 03/31/2021 5:20 PM CDT Addended by: KEMAR OQUENDO on: 03/31/2021 05:20 PM Modules accepted: Orders Telephone Encounter - Daryn Howard - 03/30/2021 12:23 PM CDT RST unable to use Return to provider in another area orders for DERM. Please order a consult instead. documented in this encounter Plan of Treatment Scheduled Referrals Name Type Priority Associated Order Schedule Diagnoses Dermatology - General Outpatient Referral Routine Lesion Skin Expected: consult (clinic) 03/31/2021 (Approximate), Expires: 03/31/2024 documented as of this encounter Visit Diagnoses Diagnosis Lesion Skin - Primary documented in this encounter Care Teams Fine Arts Teacher Relationship Specialty Start Date End Date Kemar Oquendo P.A.-C. PCP - General Family Medicine 09/01/19 12/15/21 [address] [place] [phone] documented as of this encounter
--- OUTSIDE RECORDS SUMMARY | 2022-06-22 11:37 | XMS_ITS | Encounter Summary ---
:1940 Author Organization [facility] Address [address] [place] [address] Care Team Providers Name Role Phone Elsewhere, Pcp Primary Care Provider Unavailable Reason for Visit Reason Comments Med Refill Encounter Details Date Type Department Care Team Description 03/21/2022 Refill Department of Family Medicine, Jeancarlos Sherman P.A.-C. Med Refill [facility], in [address] [place] [phone] [place] [address] [place] [address] [phone] Social History Tobacco Use Types Packs/Day Years [...] 05/13/2021 relatives? How often do you attend bahai or scientology Patient refused 05/13/2021 services? Do you belong to any clubs or organizations such as Patient refused 05/13/2021 bahai groups, unions, fraternal or athletic groups, or [...] this encounter Miscellaneous Notes Telephone Encounter - Misti Severino RDN, LD - 03/22/2022 8:43 AM CDT PCP Elsewhere; pt switched to clinic in [place] for care (see refill encounter from 12/16/21). documented in this encounter Plan of Treatment Not on filedocumented as of this encounter Visit Diagnoses Not on filedocumented in this encounter Care Teams Geoint Analyst Relationship Specialty Start Date End Date Elsewhere, Pcp PCP - General Internal Medicine 12/16/21 documented as of this encounter
--- OUTSIDE RECORDS SUMMARY | 2022-06-22 11:37 | XMS_ITS | Encounter Summary ---
:1940 Author Organization [facility] Address [address] [place] [address] Care Team Providers Name Role Phone Jeancarlos Oquendo P.A.-C. Primary Care Provider [phone] Reason for Referral Outpatient (Routine) - Closed Specialty Diagnoses / Procedures Referred By Contact Refer red To Contact Dermatology Diagnoses Keratosis Actinic Jeancarlos Oquendo P.A.-C. [facility] [address] [place] [address] Referral ID Status Reason Start Date Expiration Date Visits V isits Requested Authorized [id number] Closed Specialty 10/14/2020 10/14/2021 1 1 Services Required ANICAL LEAD Reason for Visit Reason Comments Follow-up lab results Outpatient (Routine) - Closed Specialty Diagnoses / Procedures Referred By Contact Refer red To Contact Family Medicine Diagnoses Hyperlipidemia Mixed Screening Examination Diabetes Mellitus Jeancarlos Oquendo [facility] [place] [facility] [place] [address] [place] [phone] Referral ID Status Reason Start Date Expiration Date Visits Requ ested Visits Authorized [id number] Closed 10/02/2019 10/01/2020 1 1 Encounter Details Date Type Department Care Team Description 10/14/2020 Comprehensive Visit Department of Clementina Oquendo (Primary Dx); Family Medicine, Jeancarlos, Hyperlipide austin Mixed; [facility], P.A.-C. Screening Examination Diabetes Mellitus; in [place], [address] Keratosis Actinic; [place], [place] Incontinence Urinary; [address] [phone] General Medical Examination Adult [address] J[address]EN [phone] (Work) [phone] Social History Tobacco Use Types Packs/Day Years [...] 05/13/2021 relatives? How often do you attend latter day or denominational Patient refused 05/13/2021 services? Do you belong to any clubs or organizations such as Patient refused 05/13/2021 latter day groups, unions, fraternal or athletic groups, or [...] Sign Reading Time Taken Comments Blood Pressure 124/64 10/14/2020 11:52 AM MECHANICAL LEAD Pulse 68 10/14/2020 11:52 AM MECHANICAL LEAD Temperature 36.3 ??C (97.3 ??F) 10/14/2020 11:52 AM MECHANICAL LEAD Respiratory Rate - - Oxygen Saturation - - Inhaled Oxygen Concentration - - Weight 64 kg (141 lb 1.5 oz) 10/14/2020 11:52 AM MECHANICAL LEAD Height - - Body Mass Index 24.18 10/02/2019 9:37 AM MECHANICAL LEAD documented in this encounter H&P Notes Jeancarlos Oquendo P.A.-C. - 10/14/2020 12:00 PM CST CHIEF COMPLAINT / REASON FOR VISIT Emma Contreras is a 80 y.o. female who presents for evaluation of Follow-up (lab results). HISTORY OF PRESENT ILLNESS Emma presents today for her yearly medication review. Overall she is doing well but she quit taking her statin last year in her lipids have gone up substantially. It is important that she gets backon her statin. She has been walking a couple miles on most days and overall is feeling great she lost her a couple years ago but overall seems to be doing okay socially. She is planning to moveto an apartment from her big house which will be helpful for her. She has some anxiety but overall this has been pretty well controlled she says activity seems to help with this quite a bit PAST MEDICAL HISTORY: Patient Active Problem List Diagnosis ??? Primary Osteoarthritis Multiple Sites ??? Hyperlipidemia Mixed ??? Anxiety PAST SURGICAL HISTORY: Past Surgical History: Procedure Laterality Date ??? [...] VEIN STRIPPING N/A 04/22/2008 Varicose vein stripping SOCIAL HISTORY: Social History Tobacco Use ??? Smoking status: Former Smoker Types: Cigarettes Quit date: 1986 Years since quittin.2 ??? Smokeless tobacco: Never Used ??? Tobacco comment: occasional smoker Substance Use Topics ??? Alcohol use: Yes Frequency: 2-4 times a month Drinks per session: 1 or 2 Binge frequency: Never Comment: 1 or 2 weekly (not always) ??? Drug use: No FAMILY HISTORY: Family History Problem Relation Age of Onset ??? Aneurysm Father AAA ??? Coronary artery disease Father ??? MVA - Motor vehicle accident Mother ??? Hypertension Sister ??? Other (Malnutrition) Brother Six weeks of age ??? Hypertension Sister ??? Hyperlipidemia Sister ??? Coronary artery disease Sister ??? Cancer Sister ??? TB - Pulmonary tuberculosis Aunt ??? Hypertension Daughter ??? Hypertension Daughter ??? Hypertension Daughter ??? Cancer Daughter MEDICATIONS: Current Outpatient Medications Medication Sig Dispense Refill ??? artificial tears with lanolin (REFRESH P.M.) ophthalmic ointment 0.5 inches 3 (three) times a day as needed for dry eyes. ??? cholecalciferol, vitamin D3, (cholecalciferol) 1,000 Unit tablet Take 1,000 Units by mouth daily. ??? MAGNESIUM ORAL Take by mouth daily. ??? omega 4-ant-arw-fish oil 1,000 mg (120 mg-180 mg) capsule Take by mouth daily. ??? vitamin A,C,V-vtapbj-jabbvgmx (OCUVITE W/LUTEIN) 1,000 Unit-200 mg-60 Unit-2 mg tablet Take 1 tablet by mouth 2 (two) times a day. ??? simvastatin (ZOCOR) 20 mg tablet Take 1 tablet (20 mg total) by mouth at bedtime. 90 tablet 3 No current facility-administered medications for this visit. ALLERGIES: Allergies Allergen Reactions ??? Latex Other (see comments) Only reacts to powdered latex gloves OBJECTIVE Vitals: 10/14/20 1152 BP: 124/64 BP Location: Right arm Patient Position: Sitting Cuff Size: Regular Pulse: 68 Temp: 36.3 ??C Weight: 64 kg Body mass index is 24.18 kg/m??. PHYSICAL EXAMINATION General: Patient appears in no acute distress. ENT: TMs no erythema. Throat no erythema. Neck: No lymphadenopathy. No thyroid masses. Heart: Regular rate and rhythm. No murmurs. Lungs: Clear to auscultation. Abdomen: Soft and nontender to palpation. IMPRESSION / REPORT / PLAN #1 Hyperlipidemia Mixed Her lipids are quite elevated am going to start her back on the simvastatin she previously toleratedit well #2 Screening Examination Diabetes Mellitus Will check a metabolic panel again next year #3 Anxiety Overall her anxiety is doing well with her exercise and I recommended that she continue this. 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 This has been treated a couple times actinic keratosis is also been treated a couple times. She would like to follow up again with Dermatology in [place]. I will put through a consult for this #5 Incontinence Urinary She has had ongoing urinary incontinence that seems to be progressively worsening. She would like tofollow-up with OBGYN Urogynecology for further recommendations I put through a consult today. #6 General Medical Examination Adult Overall she is doing well she is maintaining a good attitude I would like her to continue with her active lifestyle. If she has any further questions or problems he will let us know. Total time spent was 30 minutes Jeancarlos Oquendo P.A.-C. ANICAL LEAD documented in this encounter Plan of Treatment Scheduled Referrals Name Type Priority Associated Order Schedule Diagnoses Dermatology - General Outpatient Referral Routine Keratosis Ac tinic Expected: consult (clinic) 10/14/2020 (Approximate), Expires: 10/15/2023 documented as of this encounter Visit Diagnoses Diagnosis Anxiety - Primary Hyperlipidemia Mixed Screening Examination Diabetes Mellitus Keratosis Actinic Incontinence Urinary General Medical Examination Adult documented in this encounter Care Teams Cyber Workforce Developer And Manager Relationship Specialty Start Date End Date Jeancarlos Oquendo P.A.-C. PCP - General Family Medicine 09/01/19 12/15/[address] [place] [phone] documented as of this encounter
--- OUTSIDE RECORDS SUMMARY | 2022-06-22 11:37 | XMS_ITS | Encounter Summary ---
:1940 Author Organization [facility] Address [address] [place] [address] Care Team Providers Name Role Phone Jeancarlos Oquendo P.A.-C. Primary Care Provider [phone] Encounter Details Date Type Department Care [...] 05/13/2021 relatives? How often do you attend rastafari or hoahaoism Patient refused 05/13/2021 services? Do you belong to any clubs or organizations such as Patient refused 05/13/2021 rastafari groups, unions, fraternal or athletic groups, or [...] Associated Comments Diagnosis DERMATOLOGY IMAGE Routine 03/25/2020 12:10 Result s for this EXAM PM CDT procedure are i n the results section. documented in this encounter Results neck, left postauricular 9 Mohs micrographic surgery-Dermatology Image Exam (03/25/2020 12:10 PM CDT) Specimen (Source) Anatomical Collection Method [...] on filedocumented in this encounter Care Teams Bagging Salvager Relationship Specialty Start Date End Date Jeancarlos Oquendo P.A.-C. PCP - General Family Medicine 09/01/19 12/15/21 [address] [place] [phone] documented as of this encounter
--- OUTSIDE RECORDS SUMMARY | 2022-06-22 11:37 | XMS_ITS | Encounter Summary ---
:1940 Author Organization [facility] Address [address] [place] [address] Care Team Providers Name Role Phone Jeancarlos Oquendo P.A.-C. Primary Care Provider [phone] Reason for Visit Outpatient (Routine) - Closed Specialty Diagnoses / Procedures Referred By Contact Refer red To Contact Dermatology Diagnoses Keratosis Actinic Jeancarlos Oquendo P.A.-C. [place] [address] [place] [address] Referral ID Status Reason Start Date Expiration Date Visits V isits Requested Authorized [id number] Closed Specialty 10/14/2020 10/14/2021 1 1 Services Required Encounter Details Date Type Department Care Team Description 10/27/2020 Comprehensive Visit Department of Micha Noriega onal History Of Other Malignant Neoplasm Of Skin (Primary Dx); Dermatology in [place] Major Keratosis Actinic; [place], [address] [place] [address] Tumor Skin Uncertain Behavior; [place], [place] Keratosis Seborrheic Inflame d [address] [facility] [address] [place], [place] [phone] (Work) [phone] Social History Tobacco Use Types Packs/Day Years [...] often do you attend latter day or mandaen Patient refused 05/13/2021 services? Do you belong to any clubs or organizations such as Patient refused 05/13/2021 latter day groups, unions, fraLamppost or athletic groups, or school groups? How [...] documented as of this encounter Progress Notes Micha Noriega M.D. - 10/27/2020 9:00 AM CDT CHIEF COMPLAINT History nonmelanoma skin cancer new lesion on the forehead HISTORY OF THE PRESENT ILLNESS Emma Contreras is a pleasant 80 y.o. female who follows up for a history of nonmelanoma skincancer. She has developed a papule on her central forehead that is slowly enlarging. She also has a persistent, brown, scaly area on her left holiness that frequently itches. It has been treated in the past with liquid nitrogen but has not completely resolved. She denies a full skin exam today. There are no other skin concerns today. 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 Skin: Examination the head neck as well as hands was performed. On the central forehead is a 4 mm hyperkeratotic, thin pink papule. On the left holiness is a 2 cm waxy, brown, hyperkeratotic plaque with stuck on appearance. Well-healed scars on the head neck region including left ear without nodularity,induration, telangiectasias, or scale. There are no other skin lesions of concern in the areas examined. IMPRESSION AND PLAN #1 Rule out squamous cell carcinoma versus verrucal keratosis, central forehead Photograph obtained followed by shave biopsy with 1% lidocaine and 1:200,000 epinephrine. The base of the lesion was subsequently treated with electrodessication and curettage in the usual fashion. Thesize of the lesion after the first round of curettage was 0.6 cm. Wound care reviewed. The patient will be notified of the results via letter. #2 Irritated seborrheic keratosis, left holiness 1 irritated seborrheic keratosis was/were treated with liquid nitrogen cryotherapy in order to obtain a 2 mm frozen border. Wound care was reviewed. #3 History of nonmelanoma skin cancer as outlined past medical history No clinical evidence of recurrence. Advised diligent use of sunscreens, sun- protective behaviors, monthly skin checks and report of any new or changing skin lesions. documented in this encounter Plan of Treatment Not on filedocumented as of this encounter Procedures Procedure Name Priority Date/Time Associated Diagnosis Comme nts DERMATOPATHOLOGY Routine 10/27/2020 8:38 AM Keratosis Actinic Results for this CDT procedure are i n the results section. documented in this encounter Results Dermatopathology (10/27/2020 8:38 AM CDT) Component Value Ref Test Analysis Performed Pathologis t Range Method Time At Signature 10/29/2020 DILIA 12:57 PM CDT Participated in Avelina Soni 10/29/2020 PDRM the [place], 12:57 PM Interpretation [place] CDT Fellow Report Jacque I. 10/29/2020 DILIA electronically [place] 12:57 PM signed by CDT Gross Description Received in formalin labeled with the patient's n heather, 10/29/2020 PDR medical record number, and midline forehead is a 0.7 x 12:57 PM 0.6 x 0.1 cm pale lang, previously inked blue skin shave CDT biopsy. ??There is a 0.4 x 0.4 x 0.2 cm pale lang, slightly raised, firm nodular lesion with irregular borders eccentrically located on the skin surface. ??The specimen is bisected and submitted entirely in cassette A1. Grossed by AV. Interpretation FINAL DIAGNOSIS 10/29/2020 PDRNilda A. ??Midline forehead, Skin shave biopsy: ??Verrucal keratos is 12:57 PM CDT Specimen (Source) Anatomical Collection Method Collection Time Re ceived Time Location / / Volume Laterality Skin (Midline 10/27/2020 8:38 AM forehead) CDT Narrative This result has an attachment that is no t available. Micha Noriega M.D. LAB PATH DERM ORDERABLES Performing Organization Address City/State/ZIP Code Phon e Number [facility] - [address] [place], [place] [address] [place] [address] Laboratories-[facility] [address] documented in this encounter Visit Diagnoses Diagnosis Personal History Of Other Malignant Neop lasm Of Skin - Primary Keratosis Actinic Tumor Skin Uncertain Behavior Keratosis Seborrheic Inflamed documented in this encounter Care Teams Human Service Coordinator Relationship Specialty Start Date End Date Jeancarlos Oquendo P.A.-C. PCP - General Family Medicine 09/01/19 12/15/21 [address] [place] [phone] documented as of this encounter
--- OUTSIDE RECORDS SUMMARY | 2022-06-22 11:37 | XMS_ITS | Encounter Summary ---
:1940 Author Organization [facility] Address [address] [place] [address] Care Team Providers Name Role Phone Jeancarlos Oquendo P.A.-C. Primary Care Provider [phone] Reason for Visit Reason Comments COVID Inquiry Encounter Details Date Type Department Care Team Description 10/19/2020 Clinical Communication Department of Mely Clark OVID Inquiry Dermatology sheila Munguia M.D. [place], [place] [address] [facility] [address] [place] [phone] Social History Tobacco Use Types Packs/Day Years [...] 05/13/2021 relatives? How often do you attend mandaeism or hinduism Patient refused 05/13/2021 services? Do you belong to any clubs or organizations such as Patient refused 05/13/2021 mandaeism groups, unions, fraternal or athletic groups, or [...] place to sleep or slept in a intermediate (including now)? Education Answer Date Recorded What is the highest level of school you have completed or 12 th grade 10/02/2019 the highest degree you have received? Sex Assigned at Date Recorded Female 02/25/2018 7:29 PM CDT documented as of this encounter Plan of Treatment Not on filedocumented as of this encounter Visit Diagnoses Not on filedocumented in this encounter Care Teams Engine Mechanic Relationship Specialty Start Date End Date Jeancarlos Oquendo P.A.-C. PCP - General Family Medicine 09/01/19 12/15/[address] [place] [phone] documented as of this encounter
--- OUTSIDE RECORDS SUMMARY | 2022-06-22 11:37 | XMS_ITS | Encounter Summary ---
:1940 Author Organization [facility] Address [address] [place] [address] Care Team Providers Name Role Phone Jeancarlos Oquendo P.A.-C. Primary Care Provider [phone] Encounter Details Date Type Department Care Team Description 02/09/2020 Orders Only Department of Mark Munoz, Encounter For Dermatology in [place] Screening For Other [place], [place] [address] [facility] Viral Diseases [address] [place], [place] (COVID-19) ([place] [address] Dx) [phone] Social History Tobacco Use Types Packs/Day Years [...] 05/13/2021 relatives? How often do you attend gnosticism or methodist Patient refused 05/13/2021 services? Do you belong to any clubs or organizations such as Patient refused 05/13/2021 gnosticism groups, unions, fraternal or athletic groups, or [...] place to sleep or slept in a care home (including now)? Education Answer Date Recorded What is the highest level of school you have completed or 12 th grade 10/02/2019 the highest degree you have received? Sex Assigned at Date Recorded Female 02/25/2018 7:29 PM CDT documented as of this encounter Plan of Treatment Not on filedocumented as of this encounter Results SARS-CoV-2 Total Antibody, Serum (03/23/2020 8:44 AM CDT) [facility] Method Time Signature SARS-CoV-2 Negative Negative 03/23/2020 [facility] Nucleocapsid 9:48 AM CDT Total Ab, S Comment: No antibodies to SARS-CoV-2 detected. Ne gative results may occur in serum collected too soon fo llowing infection or in immunosuppressed patients. Follow- up testing with a molecular test is recommended in symptom atic patients. This test should not be used to exclude activ e/recent COVID-19. ----ADDITIONAL INFORMATION---- Testing was performed using the [employer] El [employer]csys [id number] Reagent assay from [employer], which has received Emergency Use Authori zation(EUA) by the U.S. Food and Drug Administration . Fact sheets for this Emergency Use Autho rization (EUA) assay can be found at the following link s: For Healthcare Providers: https://www.fda.gov/media/527603/downloa d For Patients: https://www.fda.gov/media/988381/downloa d Specimen Anatomical Collection Method Collection Time Receive d Time (Source) Location / / Volume Laterality Blood (Blood, 03/23/2020 8:44 AM 03/23/20 20 9:19 Venous) CDT AM CDT Mark Munoz M.D. LAB MICROBIOLOGY - BLOOD ORD ERABLES Performing Organization Address City/[facility]/ZIP Code Phon e Number [facility] - [address] [address] Laboratories-[address] SARS Coronavirus-2, PCR Asymptomatic (03/23/2020 8:17 AM CDT) [facility] Method Time Signature SARS Swab, 03/23/2020 [facility] Coronavirus-2 Nasopharynx 10:55 PM Source CDT SARS Undetected Undetected 03/23/2020 [facility] Coronavirus-2 10:55 PM , PCR CDT Comment: SARS-CoV-2 RNA absent. This result does not rule out COVID-19 in the patient, as the sensitivity of the test depends o n the timing of the specimen collection and quality of the specimen. Result should be correlated with patient's history and clinical presentat ion. ----ADDITIONAL INFORMATION---- This test was developed and its performa nce characteristics determined by [facility] in a manner co nsistent with CLIA requirements. Independent review by the U.S. Food and Drug Administration is pending. Visit the CDC website: https://www.cdc.gov/coronavirus/ ?? for the most recent guidelines on [place] virus testing. Fact Sheet for Healthcare Providers: (https://www.LearnSomething.com/it-mmfil es/ Provider_Fact_Sheet_for_[facility]_COVI D-19.pdf) Fact Sheet for Patients: (https://www.LearnSomething.Radiojar/it-mmfil es/ Patient_Fact_Sheet_for_COVID-19.pdf) Specimen Anatomical Collection Method Collection Time Receive d Time (Source) Location / / Volume Laterality Varies 03/23/2020 8:17 AM 0 (Nasopharynx) CDT 10:56 AM CDT Mark Munoz M.D. LAB MICROBIOLOGY - GENERAL O RDERABLES Performing Organization Address City/[facility]/ZIP Code Phon e Number [facility] - [address] [place], [place] [address] [facility] [place] [address] Laboratories[facility] [address] documented in this encounter Visit Diagnoses Diagnosis Encounter For Screening For Other Viral Diseases (COVID-19) - Primary documented in this encounter Care Teams Talent Acquisition Operations Manager Relationship Specialty Start Date End Date Jeancarlos Oquendo P.A.-C. PCP - General Family Medicine 09/01/19 12/15/[address] [place] [phone] documented as of this encounter
--- OUTSIDE RECORDS SUMMARY | 2022-06-22 11:37 | XMS_ITS | Encounter Summary ---
:1940 Author Organization [facility] Address [address] [place] [address] Care Team Providers Name Role Phone Jeancarlos Oquendo P.A.-C. Primary Care Provider [phone] Encounter Details Date Type Department Care [...] 05/13/2021 relatives? How often do you attend yazdanism or shinto Patient refused 05/13/2021 services? Do you belong to any clubs or organizations such as Patient refused 05/13/2021 yazdanism groups, unions, fraternal or athletic groups, or [...] place to sleep or slept in a fci (including now)? Education Answer Date Recorded What [...] Associated Comments Diagnosis DERMATOLOGY IMAGE Routine 03/25/2020 12:00 Result s for this EXAM PM CDT procedure are i n the results section. documented in this encounter Results neck, left postauricular 9 Mohs micrographic surgery-Dermatology Image Exam (03/25/2020 12:00 PM CDT) Specimen (Source) Anatomical Collection Method [...] on filedocumented in this encounter Care Teams Strategic Accounts Manager Relationship Specialty Start Date End Date Jeancarlos Oquendo P.A.-C. PCP - General Family Medicine 09/01/19 12/15/21 [address] [place] [phone] documented as of this encounter
--- OUTSIDE RECORDS SUMMARY | 2022-06-22 11:38 | XMS_ITS | Encounter Summary ---
:1940 Author Organization [facility] Address [address] [place] [address] Care Team Providers Name Role Phone Jeancarlos Oquendo P.A.-C. Primary Care Provider [phone] Reason for Referral Outpatient (Routine) - Closed Specialty Diagnoses / Procedures Referred By Contact Refer red To Contact Dermatology Diagnoses Keratosis Actinic Jeancarlos Oquendo P.A.-C. [address] [address] Referral ID Status Reason Start Date Expiration Date Visits V isits Requested Authorized [id number] Closed Specialty 09/01/2019 08/31/2020 1 1 Services Required [facility] Outpatient (Routine) - Closed Specialty Diagnoses / Procedures Referred By Contact Refer red To Contact Family Medicine Diagnoses Hyperlipidemia Mixed Screening Examination Diabetes Mellitus Screening Examination For Thyroid Disorder Jeancarlos Oquendo [facility] [address] [place] [phone] Referral ID Status Reason Start Date Expiration Date Visits Requ ested Visits Authorized [id number] Closed 09/01/2019 08/31/2020 1 1 [facility]AN Reason for Visit Reason Comments Other States she attempts to do th ings at home and she is off to doing something else. States she can't stay on one task. She is trying hemp oil to keep o n one task, states she has been on it 7 days and does not know when it should start. She states her daughter is on celexa an d she has been on it for a couple of months and she is able to to stary focused. Establish Care She lives here in [place] and would like Jeancarlos as her provider. Suspicious Skin Lesion Left samaritan area, noted for quite a while. She states they froze it in the past and it comes back. Appointment Request (Routine) - Closed Specialty Diagnoses / Procedures Referred By Contact Refer red To Contact Family Medicine Referral ID Status Reason Start Date Expiration Date Visits Requ ested Visits Authorized [id number] Closed 08/26/2019 08/25/2020 1 1 Encounter Details Date Type Department Care Team Description 09/01/2019 Office Visit Department of [facility] Azra Augustin is Actinic (Primary Dx); Medicine in [place], Juan C Arshad Hyperlipidemia Mixed; [place] [address] [facility] Gastroesophageal Reflux Disease Without Esophagitis; [address] [place], [place] Screening Examination Diabet es Mellitus; [place] [address] Anxiety; [phone] Screening Examination For Th yroid Disorder; Hematochezia Social History Tobacco Use Types Packs/Day Years [...] 05/13/2021 relatives? How often do you attend zoroastrianism or congregational Patient refused 05/13/2021 services? Do you belong to any clubs or organizations such as Patient refused 05/13/2021 zoroastrianism groups, unions, fraternal or athletic groups, or [...] or slept in a fdc (including now)? Sex Assigned at Date Recorded Female 02/25/2018 7:29 PM CDT documented as of this encounter Last Filed Vital Signs Vital Sign Reading Time Taken Comments Blood Pressure 116/65 09/01/2019 8:30 AM [facility] Pulse 78 09/01/2019 8:30 AM [facility] Temperature 36.2 ??C (97.2 ??F) 09/01/2019 8:30 AM [facility] Respiratory Rate 16 09/01/2019 8:30 AM [facility] Oxygen Saturation 97% 09/01/2019 8:30 AM [facility] Inhaled Oxygen Concentration - - Weight 68.6 kg (151 lb 3.8 oz) 09/01/2019 8:30 AM [facility] Height 162.6 cm (5' 4.02) 09/01/2019 8:30 AM [facility] Body Mass Index 25.95 09/01/2019 8:30 AM [facility] documented in this encounter Progress Notes Jeancarlos Oquendo P.A.-C. - 09/01/2019 8:30 AM CST CHIEF COMPLAINT / REASON FOR VISIT Emma Contreras is a 79 y.o. female who presents for evaluation of Other (States she attemptsto do things at home and she is off to doing something else. States she can't stay on one task. She is trying hemp oil to keep on one task, states she has been on it 7 days and does not know when it should start. She states her daughter is on celexa and she has been on it for a couple of months and she is able to to stary focused.); Establish Care (She lives here in [place] and would like Jeancarlos as her provider. ); and Suspicious Skin Lesion (Left samaritan area, noted for quite a while. She states theyfroze it in the past and it comes back.). HISTORY OF PRESENT ILLNESS Emma presents today as a new patient to me. She is very pleasant. Her about a monthago. She has been struggling with that somewhat. She has a couple issues she wants to discuss. She says that she has had some flight of ideas for years and says that she frequently goes from thing to thing without completing the original task. Her daughter told her to try some CBD oil which she has done but she hasn't found to be very helpful. She is wanting about trying a medication for anxiety. Sheis wanting if she could take a just for a little while and then stop it. She also has a history of askin lesion on her left samaritan this is been frozen x2 but continues to return. It's very flaky and continues to grow and sometimes it bleeds. As I reviewed her chart I see that she had a positive fit test in 2017. It looks like they tried to set up a colonoscopy but was never done. I think this shouldbe followed up on. She has some esophageal reflux for which she takes a proton pump inhibitor. She also has hyperlipidemia and will be due for recheck of her lipids in the near future. OBJECTIVE Vitals: 09/01/19 0830 BP: 116/65 BP Location: Right arm Patient Position: Sitting Cuff Size: Large Pulse: 78 Resp: 16 Temp: 36.2 ??C TempSrc: Temporal SpO2: 97% Weight: 68.6 kg Height: 162.6 cm Body mass index is 25.95 kg/m??. PHYSICAL EXAM In general she appears in no acute distress Skin: On her left samaritan she has an area that's about 3 cm in diameter it's flaky in raised and looks irritable. 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 I opted to have her see Derm since it is over the temporal artery and I wouldrather they perform this biopsy #2 Hyperlipidemia Mixed Continue on the simvastatin. Will check her lipids fasting in a month and I'll see her back #3 Gastroesophageal Reflux Disease Without Esophagitis Continue on the omeprazole #4 Screening Examination Diabetes Mellitus Will check a metabolic panel #5 Anxiety I'm going to start her on Wellbutrin. Will use this daily I'll see her back in a month and see how she has responded #6 Screening Examination For Thyroid Disorder Will check a TSH when I see her back #7 Hematochezia She is overdue for colonoscopy. We will get this set up and I'll plan to do her preop when I see frances in a month. Total time spent with her was 30 minutes of which 20 was [id number] coordination of care and counseling Jeancarlos Oquendo P.A.-C. [employer] [facility] [facility] documented in this encounter Plan of Treatment Scheduled Referrals Name Type Priority Associated Diagnoses Order [facility] Outpatient Routine Hyperlipidemia M ixed Expected: office visit Referral Screening Examination 2019 (clinic) Diabetes Mellitu s (Approximate), Screening Examination s: For Thyroid Disorder 023 Dermatology - Outpatient Routine Keratosis Actinic Expected: General consult Referral 09/01/2019 (clinic) (Approximate), Expires: 09/01/2022 documented as of this encounter Results S-TSH (Thyroid-Stimulating Hormone - Sensitive) (09/29/2019 8:56 AM [facility]) P athologist Signature TSH, Sensitive 0.9 0.3 - 4.2 09/29/2019 [facility] mIU/L 2:09 PM [facility] Comment: Biotin has been identified by the omari hein as a potential interfering substance. ??Higher concentr ations of biotin may be found in multivitamins, hair/nail supple ments, and workout supplements. ??If the result does not [facility] clinical observations, repeat testing after patient refrains fr om the use of supplements for at least 12 hours. Specimen Anatomical Collection Method Collection Time Receive d Time (Source) Location / / Volume Laterality Blood (Blood, 09/29/2019 8:56 AM 09/29/19 20 1:09 Venous) [facility] PM [facility] Jeancarlos Oquendo P.A.-C. LAB BLOOD ADD-ON Performing Organization Address City/State/ZIP Code Phon e Number [facility]- [address] [place] [address] [facility] [place] [address] System in [place] [address] (ABNORMAL) Lipid Panel (09/29/2019 8:56 AM [facility]) P athologist Signature Cholesterol, 220 (H) mg/dL 09/29/2019 [facility] Total 3:10 PM [facility] Comment: ----REFERENCE VALUE---- Desirable: < 200 Borderline high: 200 - 239 High: > or = 240 Triglycerides 79 mg/dL 09/29/2019 3:10 PM [facility] OWA T Comment: ----REFERENCE VALUE---- Normal: <150 Borderline high: 150-199 High: 200-499 Very high: > or =500 Cholesterol, HDL 71 >=50 mg/dL 09/29/2019 3:10 PM [facility] Calculated LDL 133 (H) mg/dL 09/29/2019 3:10 PM [facility] OW AT Comment: ----REFERENCE VALUE---- Desirable: <100 Above Desirable: 100-129 Borderline high: 130-159 High: 160-189 Very high: > or =190 Cholesterol, Non-HDL, Calculated 149 mg/dL 020 3:10 PM [facility] Comment: ----REFERENCE VALUE---- Desirable: <130 Above Desirable: 130-159 Borderline high: 160-189 High: 190-219 Very high: > or =220 Specimen Anatomical Collection Method Collection Time Receive d Time (Source) Location / / Volume Laterality Blood (Blood, 09/29/2019 8:56 AM 09/29/19 20 1:09 Venous) [facility] PM [facility] Jeancarlos Oquendo P.A.-C. LAB BLOOD ADD-ON Performing Organization Address City/State/ZIP Code Phon e Number [facility]- [address] [place] [address] [facility] [address] [place] [place] [address] System in [place] [address] (ABNORMAL) Comprehensive Metabolic Panel (09/29/2019 8:56 AM [facility]) P athologist Signature Potassium, P 4.6 3.6 - 5.2 09/29/2019 [facility] mmol/L 3:10 PM [facility] Sodium, P 138 135 - 145 09/29/2019 [facility] mmol/L 3:10 PM [facility] Chloride, P 100 98 - 107 09/29/2019 [place] mmol/L 3:10 PM [facility] Bicarbonate, P 22 22 - 29 09/29/2019 [place] mmol/L 3:10 PM [facility] Anion Gap, P 16 (H) 7 - 15 09/29/2019 [place] 3:10 PM [facility] BUN (Blood Urea 12 6 - 21 09/29/2019 [facility] Nitrogen), P mg/dL 3:54 PM [facility] Creatinine 0.82 0.59 - 09/29/2019 [place] 1.04 mg/dL 3:10 PM [facility] eGFR-Black/Afri 78 >=60 09/29/2019 [facility] can Angolan mL/min/BSA 3:10 PM [facility] Comment: ----ADDITIONAL INFORMATION---- Estimated GFR calculated using the 2009 CKD_EPI creatinine equation. eGFR Non-Black/ 67 >=60 mL/min/BSA 3:10 PM [facility] Comment: ----ADDITIONAL INFORMATION---- Estimated GFR calculated using the 2009 CKD_EPI creatinine equation. Calcium, Total, P 10.1 8.8 - 10.2 mg/dL 09/29/2019 3:10 PM [facility] Glucose, P 105 70 - 140 mg/dL 09/29/2019 3:10 PM [facility] O [place] Protein, Total, P 7.5 6.3 - 7.9 g/dL 09/29/2019 3:10 P M [facility] Albumin, P 4.4 3.5 - 5.0 g/dL 09/29/2019 3:10 PM [facility] [place] Aspartate Aminotransferase 30 8 - 43 U/L 09/29/2019 3 :10 PM [facility] [place] (AST), P Alkaline Phosphatase, P 71 35 - 104 U/L 09/29/2019 3: 10 PM [facility] Alanine Aminotransferase (ALT), 15 7 - 45 U/L 020 3:10 PM [facility] P Bilirubin, Total, P 0.5 <=1.2 mg/dL 09/29/2019 3:10 PM [facility] Specimen Anatomical Collection Method Collection Time Receive d Time (Source) Location / / Volume Laterality Blood (Blood, 09/29/2019 8:56 AM 09/29/19 1:09 Venous) [facility] PM [facility] Jeancarlos Oquendo P.A.-C. LAB BLOOD ADD-ON Performing Organization Address City/State/ZIP Code Phon e Number [facility]- [address] [place] [address] [facility] [place] [address] System in [place] [address] documented in this encounter Visit Diagnoses Diagnosis Keratosis Actinic - Primary Hyperlipidemia Mixed Gastroesophageal Reflux Disease Without Esophagitis Screening Examination Diabetes Mellitus Anxiety Screening Examination For Thyroid Disord er Hematochezia documented in this encounter Care Teams Printing Machine Mechanic Relationship Specialty Start Date End Date Jeancarlos Oquedno P.A.-C. PCP - General Family Medicine 09/01/19 12/15/[address] [place] [phone] documented as of this encounter
--- OUTSIDE RECORDS SUMMARY | 2022-06-22 11:38 | XMS_ITS | Encounter Summary ---
:1940 Author Organization [facility] Address [address] [place] [address] Care Team Providers Name Role Phone Jeancarlos Oquendo P.A.-C. Primary Care Provider [phone] Reason for Visit Reason Comments COVID Inquiry Encounter Details Date Type Department Care Team Description 01/26/2020 Clinical Communication Department of [facility] D[facility] in [place], [place] [address] [facility] [address] [place] [phone] [phone] Social History Tobacco Use Types Packs/Day Years [...] 05/13/2021 relatives? How often do you attend presybeterian or episcopalian Patient refused 05/13/2021 services? Do you belong to any clubs or organizations such as Patient refused 05/13/2021 presybeterian groups, unions, fraternal or athletic groups, or [...] this encounter Miscellaneous Notes Telephone Encounter - Karlie Garcia Jonny - 01/26/2020 2:28 PM CDT (Note for [facility] locations only: If the patient states they are asking for testing because attended a protest, zamora, community cleanup or other mass gathering in the last 7 days and is asking for testing, complete the below questions and transfer to the COVID Nurse Line). 1. Do you have a pending COVID test because you had symptoms or exposure to someone with COVID or you have tested positive for COVID in the last 30 days? no 2. In the past 14 days, do you, anyone in the household, or anyone you have had prolonged exposure have any of the following? a. Fever greater than or equal to 37.8 C (100.0 F)? no b. New symptoms (Specifically: headache, cough, shortness of breath, respiratory distress, sore throat, diarrhea, nausea, vomiting, chills and repeated shaking with chills, myalgia's (muscle aches), loss of smell, or change or loss of taste sensation)? no c. Had close contact with a patient with known or possible COVID-19 in the last 14 days? no Route reply to: BERNADETTE BARRERA DESK Scheduling Contact Number: [phone] documented in this encounter Plan of Treatment Not on filedocumented as of this encounter Visit Diagnoses Not on filedocumented in this encounter Additional Health Concerns Infection Onset Date Last Indicated Resolved Time COVID19 Pending 01/25/2020 01/25/2020 01/26/2020 2:16 PM CDT documented as of this encounter Care Teams Head Waiter/Waitress Relationship Specialty Start Date End Date Jeancarlos Oquendo P.A.-C. PCP - General Family Medicine 09/01/19 12/15/[address] [place] [phone] documented as of this encounter
--- OUTSIDE RECORDS SUMMARY | 2022-06-22 11:38 | XMS_ITS | Encounter Summary ---
:1940 Author Organization [facility] Address [address] [place] [address] Care Team Providers Name Role Phone Jeancarlos Oquendo P.A.-C. Primary Care Provider [phone] Reason for Visit Reason Comments COVID Inquiry Encounter Details Date Type Department Care Team Description 02/02/2020 Clinical Communication Department of Mark Munoz COV ID Inquiry Dermatology in [place], [place] [address] [facility] [address] [place] [phone] Social History Tobacco Use Types Packs/Day Years [...] How often do you attend presybeterian or denominational Patient refused 05/13/2021 services? Do [...] on filedocumented in this encounter Care Teams Checkroom Chief Relationship Specialty Start Date End Date Jeancarlos Oquendo P.A.-C. PCP - General Family Medicine 09/01/19 12/15/[address] [place] [phone] documented as of this encounter
--- OUTSIDE RECORDS SUMMARY | 2022-06-22 11:38 | XMS_ITS | Encounter Summary ---
:1940 Author Organization [facility] Address [address] [place] [address] Care Team Providers Name Role Phone Jeancarlos Oquendo P.A.-C. Primary Care Provider [phone] Encounter Details Date Type Department Care Team Description 09/29/2019 Hospital Encounter Department of [facility] Hyperlip idemia Mixed; Laboratory Medicine Juan C Arshad Screening Examination Diabetes Mellitus; in [place], [address] Screening Examination For Thyroid Disord er [place], [place] [address] [address] [place], [place] [phone] (Work) [phone] Social History Tobacco Use Types Packs/Day Years [...] 05/13/2021 relatives? How often do you attend uatsdin or lutheran Patient refused 05/13/2021 services? Do you belong to any clubs or organizations such as Patient refused 05/13/2021 uatsdin groups, unions, fraternal or athletic groups, or [...] or slept in a prison (including now)? Sex Assigned at Date Recorded Female 02/25/2018 7:29 PM CDT documented as of this encounter Medications at Time of Discharge Medication Sig Dispensed Refills Start Date End Date acetaminophen (TYLENOL) Take 325 mg by mouth 0 10/14/2020 325 mg tablet every 4 (four) hours as needed for pain. Generally 1 dose on a rare basis amoxicillin (AMOXIL) 500 0 10/24/2018 10/02/2019 mg capsule buPROPion XL (WELLBUTRIN Take 1 tablet (150 90 tablet 3 06/02/2020 XL) 150 mg 24 hr tablet mg total) by mouth every morning. omeprazole (PriLOSEC) 20 Take 1 capsule (20 90 capsule 3 10/02/[address] capsule mg total) by mouth every morning before breakfast. simvastatin (ZOCOR) 20 Take 1 tablet by 0 017 10/02/2019 mg tablet mouth daily. documented as of this encounter Plan of Treatment Not on filedocumented as of this encounter Procedures Procedure Name Priority Date/Time Associated Diagnosis Comme nts LIPID PANEL, S Routine 09/29/2019 8:56 Hyperlipidemia M ixed Results for this AM LICENSED APPRAISER Screening Examination proced ure are in Diabetes Mellitu s the results Screening Examination sectio n. For Thyroid Disorder THYROID-STIMULATING Routine 09/29/2019 8:56 Hyperlipidem ia Mixed Results for this HORMONE-SENSITIVE AM LICENSED APPRAISER Screening Examination p rocedure are in (S-TSH) Diabetes Mellitu s the results Screening Examination sectio n. For Thyroid Disorder COMPREHENSIVE Routine 09/29/2019 8:56 Hyperlipidemia M ixed Results for this METABOLIC PANEL, S/P AM LICENSED APPRAISER Screening Examinatio n procedure are in Diabetes Mellitu s the results Screening Examination sectio n. For Thyroid Disorder documented in this encounter Results S-TSH (Thyroid-Stimulating Hormone - Sensitive) (09/29/2019 8:56 AM LICENSED APPRAISER) athologist Signature TSH, Sensitive 0.9 0.3 - 4.2 09/29/2019 [facility] mIU/L 2:09 PM LICENSED APPRAISER Comment: Biotin has been identified by the omari hein as a potential interfering substance. ??Higher concentr ations of biotin may be found in multivitamins, hair/nail supple ments, and workout supplements. ??If the result does not [facility] clinical observations, repeat testing after patient refrains fr om the use of supplements for at least 12 hours. Specimen Anatomical Collection Method Collection Time Receive d Time (Source) Location / / Volume Laterality Blood (Blood, 09/29/2019 8:56 AM 09/29/19 20 1:09 Venous) LICENSED APPRAISER PM LICENSED APPRAISER Jeancarlos Oquendo P.A.-C. LAB BLOOD ADD-ON Performing Organization Address City/State/ZIP Code Phon e Number [facility] [address] [place] [address] [place] [address] System in [place] [address] (ABNORMAL) Lipid Panel (09/29/2019 8:56 AM LICENSED APPRAISER) athologist Signature Cholesterol, 220 (H) mg/dL 09/29/2019 [facility] Total 3:10 PM LICENSED APPRAISER Comment: ----REFERENCE VALUE---- Desirable: < 200 Borderline high: 200 - 239 High: > or = 240 Triglycerides 79 mg/dL 09/29/2019 3:10 PM LICENSED APPRAISER OWA T Comment: ----REFERENCE VALUE---- Normal: <150 Borderline high: 150-199 High: 200-499 Very high: > or =500 Cholesterol, HDL 71 >=50 mg/dL 09/29/2019 3:10 PM LICENSED APPRAISER OW[facility] Calculated LDL 133 (H) mg/dL 09/29/2019 3:10 PM LICENSED APPRAISER OW [facility] Comment: ----REFERENCE VALUE---- Desirable: <100 Above Desirable: 100-129 Borderline high: 130-159 High: 160-189 Very high: > or =190 Cholesterol, Non-HDL, Calculated 149 mg/dL 020 3:10 PM LICENSED APPRAISER [facility] Comment: ----REFERENCE VALUE---- Desirable: <130 Above Desirable: 130-159 Borderline high: 160-189 High: 190-219 Very high: > or =220 Specimen Anatomical Collection Method Collection Time Receive d Time (Source) Location / / Volume Laterality Blood (Blood, 09/29/2019 8:56 AM 09/29/19 20 1:09 Venous) LICENSED APPRAISER PM LICENSED APPRAISER Jeancarlos Oquendo P.A.-C. LAB BLOOD ADD-ON Performing Organization Address City/State/ZIP Code Phon e Number [facility]- [address] [place] [address] [place] [address] System in [place] [address] (ABNORMAL) Comprehensive Metabolic Panel (09/29/2019 8:56 AM LICENSED APPRAISER) P athologist Signature Potassium, P 4.6 3.6 - 5.2 09/29/2019 [place] mmol/L 3:10 PM LICENSED APPRAISER Sodium, P 138 135 - 145 09/29/2019 [place] mmol/L 3:10 PM LICENSED APPRAISER Chloride, P 100 98 - 107 09/29/2019 [place] mmol/L 3:10 PM LICENSED APPRAISER Bicarbonate, P 22 22 - 29 09/29/2019 [place] mmol/L 3:10 PM LICENSED APPRAISER Anion Gap, P 16 (H) 7 - 15 09/29/2019 [place] 3:10 PM LICENSED APPRAISER BUN (Blood Urea 12 6 - 21 09/29/2019 [place] Nitrogen), P mg/dL 3:54 PM LICENSED APPRAISER Creatinine 0.82 0.59 - 09/29/2019 [place] 1.04 mg/dL 3:10 PM LICENSED APPRAISER eGFR-Black/Afri 78 >=60 09/29/2019 [place] can Swazi mL/min/BSA 3:10 PM LICENSED APPRAISER Comment: ----ADDITIONAL INFORMATION---- Estimated GFR calculated using the 2009 CKD_EPI creatinine equation. eGFR Non-Black/ 67 >=60 mL/min/BSA 3:10 PM LICENSED APPRAISER [facility] Comment: ----ADDITIONAL INFORMATION---- Estimated GFR calculated using the 2009 CKD_EPI creatinine equation. Calcium, Total, P 10.1 8.8 - 10.2 mg/dL 09/29/2019 3:10 PM LICENSED APPRAISER [facility] Glucose, P 105 70 - 140 mg/dL 09/29/2019 3:10 PM LICENSED APPRAISER O ST[place] Protein, Total, P 7.5 6.3 - 7.9 g/dL 09/29/2019 3:10 P M LICENSED APPRAISER [facility] Albumin, P 4.4 3.5 - 5.0 g/dL 09/29/2019 3:10 PM LICENSED APPRAISER O [place] Aspartate Aminotransferase 30 8 - 43 U/L 09/29/2019 3 :10 PM LICENSED APPRAISER [facility] (AST), P Alkaline Phosphatase, P 71 35 - 104 U/L 09/29/2019 3: 10 PM LICENSED APPRAISER [facility] Alanine Aminotransferase (ALT), 15 7 - 45 U/L 020 3:10 PM LICENSED APPRAISER OW[facility] P Bilirubin, Total, P 0.5 <=1.2 mg/dL 09/29/2019 3:10 PM LICENSED APPRAISER [facility] Specimen Anatomical Collection Method Collection Time Receive d Time (Source) Location / / Volume Laterality Blood (Blood, 09/29/2019 8:56 AM 09/29/19 20 1:09 Venous) LICENSED APPRAISER PM LICENSED APPRAISER Jeancarlos Oquendo P.A.-C. LAB BLOOD ADD-ON Performing Organization Address City/State/ZIP Code Phon e Number [facility]- [address] [place] [address] [place] [address] System in [place] [address] [facility] documented in this encounter Visit Diagnoses Diagnosis Hyperlipidemia Mixed Screening Examination Diabetes Mellitus Screening Examination For Thyroid Disord er documented in this encounter Care Teams Statistical Typist Relationship Specialty Start Date End Date Jeancarlos Oquendo P.A.-C. PCP - General Family Medicine 09/01/19 12/15/21 [address] [place] [phone] documented as of this encounter
--- OUTSIDE RECORDS SUMMARY | 2022-06-22 11:38 | XMS_ITS | Encounter Summary ---
:1940 Author Organization [facility] Address [address] [place] [address] Care Team Providers Name Role Phone Jeancarlos Oquendo P.A.-C. Primary Care Provider [phone] Encounter Details Date Type Department Care Team Description 01/27/2020 Ancillary Procedure Department of Dermatology Social History [...] 05/13/2021 relatives? How often do you attend denominational or mandaen Patient refused 05/13/2021 services? Do you belong to any clubs or organizations such as Patient refused 05/13/2021 denominational groups, unions, fraternal or athletic groups, or [...] place to sleep or slept in a long term (including now)? Education Answer Date Recorded What is the highest level of school you have completed or 12 th grade 10/02/2019 the highest degree you have received? Sex Assigned at Date Recorded Female 02/25/2018 7:29 PM CDT documented as of this encounter Plan of Treatment Not on filedocumented as of this encounter Procedures Procedure Name Priority Date/Time Associated Comments Diagnosis DERMATOLOGY IMAGE Routine 01/27/2020 12:05 Result s for this EXAM PM CDT procedure are i n the results section. documented in this encounter Results cheek, left nasolabial fold 27 Mohs micrographic surgery-Dermatology Image Exam (01/27/2020 12:05 PMCDT) Specimen (Source) Anatomical Collection Method Collection Time Re ceived Time Location / / Volume Laterality 01/27/2020 12:00 PM CDT Narrative [facility] - 01/27/2020 2:16 PM CDT This order has been created [...] on filedocumented in this encounter Care Teams Service Station Helper Relationship Specialty Start Date End Date Jeancarlos Oquendo P.A.-C. PCP - General Family Medicine 09/01/19 12/15/21 [address] [place] [phone] documented as of this encounter
--- OUTSIDE RECORDS SUMMARY | 2022-06-22 11:38 | XMS_ITS | Encounter Summary ---
:1940 Author Organization [facility] Address [address] [place] [address] Care Team Providers Name Role Phone Jeancarlos Oquendo P.A.-C. Primary Care Provider [phone] Reason for Visit Reason Comments Appointment Encounter Details Date Type Department Care Team Description 01/27/2020 Clinical Communication Department of Mark Munoz, Appointment Dermatology in [place], [place] [address] [facility] [address] [place] [phone] Social History Tobacco Use Types Packs/Day Years [...] 05/13/2021 relatives? How often do you attend baptist or mandaen Patient refused 05/13/2021 services? Do you belong to any clubs or organizations such as Patient refused 05/13/2021 baptist groups, unions, fraternal or athletic groups, or [...] on filedocumented in this encounter Care Teams Coding Compliance Manager Relationship Specialty Start Date End Date Jeancarlos Oquendo P.A.-C. PCP - General Family Medicine 09/01/19 12/15/[address] [place] [phone] documented as of this encounter
--- OUTSIDE RECORDS SUMMARY | 2022-06-22 11:38 | XMS_ITS | Encounter Summary ---
:1940 Author Organization [facility] Address [address] [place] [address] Care Team Providers Name Role Phone Jeancarlos Oquendo P.A.-C. Primary Care Provider [phone] Reason for Referral Outpatient (Routine) - Closed Specialty Diagnoses / Procedures Referred By Contact Refer red To Contact Dermatology Imani Ballesteros M.D . [facility] [address] [place], [place] [address] Referral ID Status Reason Start Date Expiration Date Visits Requ ested Visits Authorized [id number] Closed 12/16/2019 12/15/2020 1 1 Scheduling Instructions 4-6 week follow up appointments on PDT Reason for Visit Outpatient (Routine) - Closed Specialty Diagnoses / Procedures Referred By Contact Refer latricia To Contact Dermatology Diagnoses Keratosis Actinic Imani Ballesteros M.D. [facility] Procedures LUISITO TESSIE-U/ ALA (PDT) [address] [place], [place] [address] Referral ID Status Reason Start Date Expiration Date Visits Requ ested Visits Authorized [id number] Closed 10/15/2019 10/14/2020 1 1 Encounter Details Date Type Department Care Team Description 12/16/2019 Clinical Support Department of Imani Ballesteros M.D. [address] [place] [address] Keratosis Actinic Dermatology in [place] Jacques R.N. [address] [place] [phone] [place], [place] [address] [place] [phone] Social History Tobacco Use Types Packs/Day Years [...] How often do you attend faith or denominational Patient refused 05/13/2021 services? Do [...] place to sleep or slept in a fpc (including now)? Education Answer Date Recorded What is the highest level of school you have completed or 12 th grade 10/02/2019 the highest degree you have received? Sex Assigned at Date Recorded Female 02/25/2018 7:29 PM CDT documented as of this encounter Plan of Treatment Scheduled Referrals Name Type Priority Associated Order Schedule Diagnoses Dermatology office Outpatient Referral Routine Ex pected: visit (clinic) 01/13/2020 (Approximate), Expires: 12/15/2022 documented as of this encounter Visit Diagnoses Diagnosis Keratosis Actinic documented in this encounter Administered Medications Inactive Administered Medications - up to 3 most recent administrations Medication Order MAR Action Action Date Dose Rate Site aminolevulinic acid HCL 20 % Given 12/16/2019 1:50 PM 1 applicat ion external solution 1 CDT application (LEVULAYanira KERASTICK) 1 application, topical, Once, On Sun12/16/19 at 1400, For 1 dose documented in this encounter Care Teams Lehr Tender Relationship Specialty Start Date End Date Jeancarlos Oquendo P.A.-C. PCP - General Family Medicine 09/01/19 12/15/21 [address] [place] [phone] documented as of this encounter
--- OUTSIDE RECORDS SUMMARY | 2022-06-22 11:38 | XMS_ITS | Encounter Summary ---
:1940 Author Organization [facility] Address [address] [place] [address] Care Team Providers Name Role Phone Jeancarlos Oquendo P.A.-C. Primary Care Provider [phone] Encounter Details Date Type Department Care Team Description 02/03/2020 Ancillary Procedure Department of Dermatology Social History [...] How often do you attend confucianism or buddhism Patient refused 05/13/2021 services? Do you belong [...] Date/Time Associated Comments Diagnosis DERMATOLOGY IMAGE Routine 02/03/2020 10:56 Result s for this EXAM AM CDT procedure are i n the results section. documented in this encounter Results Postauricular-Dermatology Image Exam (02/03/2020 10:56 AM CDT) Specimen (Source) Anatomical Collection Method Collection Time Re ceived Time Location / / Volume Laterality 02/03/2020 12:00 PM CDT Narrative [facility] - 02/03/2020 10:56 AM CDT This order has been created and [...] on filedocumented in this encounter Care Teams Seed Laboratory Technician Relationship Specialty Start Date End Date Jeancarlos Oquendo P.A.-C. PCP - General Family Medicine 09/01/19 12/15/21 [address] [place] [phone] documented as of this encounter
--- OUTSIDE RECORDS SUMMARY | 2022-06-22 11:38 | XMS_ITS | Encounter Summary ---
:1940 Author Organization [facility] Address [address] [place] [address] Care Team Providers Name Role Phone Jeancarlos Oquendo P.A.-C. Primary Care Provider [phone] Encounter Details Date Type Department Care Team Description 10/06/2019 Clinical Communication Department of Jeancarlos Alains [facility], [facility], in [address] [facility] [address] [place], [place] [phone] (Work) [phone] Social History Tobacco Use Types Packs/Day Years [...] 05/13/2021 relatives? How often do you attend sabianist or mandaeism Patient refused 05/13/2021 services? Do you belong to any clubs or organizations such as Patient refused 05/13/2021 sabianist groups, unions, fraternal or athletic groups, or [...] on filedocumented in this encounter Care Teams Checking Department Supervisor Relationship Specialty Start Date End Date Jeancarlos Oquendo P.A.-C. PCP - General Family Medicine 09/01/19 12/15/21 [address] [place] [phone] documented as of this encounter
--- OUTSIDE RECORDS SUMMARY | 2022-06-22 11:38 | XMS_ITS | Encounter Summary ---
:1940 Author Organization [facility] Address [address] [place] [address] Care Team Providers Name Role Phone Opla Vazquez M.D. Primary Care Provider Encounter Details Date Type Department Care Team Description 12/05/2018 Clinical Communication Department of Bernadine Brian, MedicineBraden M.D. [facility], [address] [address] [place], [place] [phone] (Work) [phone] Social History Tobacco Use Types Packs/Day Years [...] 05/13/2021 relatives? How often do you attend advent or voodoo Patient refused 05/13/2021 services? Do you belong to any clubs or organizations such as Patient refused 05/13/2021 advent groups, unions, fraternal or athletic groups, or [...] place to sleep or slept in a [place] [facility] (including now)? Sex Assigned at Date Recorded Female 02/25/2018 7:29 PM CDT documented as of this encounter Miscellaneous Notes Telephone Encounter - Danielle Abdalla C.M.A. - 12/05/2018 2:20 PM CDT Also sent portal message regarding results. Telephone Encounter - Danielle Abdalla C.M.A. - 12/05/2018 2:13 PM CDT Left message for patient to call back to get results. Telephone Encounter - Shavonne Zaman APRN, C.N.P. - 12/05/2018 2:[address] Vazquez sent a letter to the patient regarding her lab work from October 25. It can be viewed in the portal. I printed the letter so when you call her you can let her know what Dr. Vazquez said as well. Telephone Encounter - Danielle Abdalla C.M.A. - 12/05/2018 2:09 PM CDT Patient would like to know results of test. Telephone Encounter - Boni Butts - 12/05/2018 1:42 PM CDT Reason for Communication: Patient called looking for her blood work up results from 11/01. Current Can Nursing/Provider leave a detailed message: Yes Did the patient refuse triage through Nurse line? (for symptom based concerns): Action Needed: Please call patient back. Name of Medication (if relevant): documented in this encounter Plan of Treatment Not on filedocumented as of this encounter Visit Diagnoses Not on filedocumented in this encounter Care Teams Field Cane Scaler Relationship Specialty Start Date End Date Opal Vazquez M.D. PCP - General 01/18/17 07/06/19 documented as of this encounter
--- OUTSIDE RECORDS SUMMARY | 2022-06-22 11:38 | XMS_ITS | Encounter Summary ---
:1940 Author Organization [facility] Address [address] [place] [address] Care Team Providers Name Role Phone Jeancarlos Oquendo P.A.-C. Primary Care Provider [phone] Encounter Details Date Type Department Care Team Description 10/15/2019 Ancillary Procedure Department of Dermatology Social History [...] 05/13/2021 relatives? How often do you attend buddhism or congregation Patient refused 05/13/2021 services? Do you belong to any clubs or organizations such as Patient refused 05/13/2021 buddhism groups, unions, fraternal or athletic groups, or [...] Date/Time Associated Comments Diagnosis DERMATOLOGY IMAGE Routine 10/15/2019 3:30 PM Resu lts for this EXAM CDT procedure are i n the results section. documented in this encounter Results cheek, left upper 13-Dermatology Image Exam (10/15/2019 3:30 PM CDT) Specimen (Source) Anatomical Collection Method Collection Time Re ceived Time Location / / Volume Laterality 10/15/2019 3:26 PM CDT Narrative [facility] - 10/15/2019 3:31 PM CDT This order has been created [...] on filedocumented in this encounter Care Teams Intervention Specialist Relationship Specialty Start Date End Date Jeancarlos Oquendo P.A.-C. PCP - General Family Medicine 09/01/19 12/15/21 [address] [place] [phone] documented as of this encounter
--- OUTSIDE RECORDS SUMMARY | 2022-06-22 11:38 | XMS_ITS | Encounter Summary ---
:1940 Author Organization [facility] Address [address] [place] [address] Care Team Providers Name Role Phone Jeancarlos Oquendo P.A.-C. 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 [facility] Procedures LUISITO MOHS 1-4 sites [address] [place] [address] Referral ID Status Reason Start Date Expiration Date Visits Requ ested Visits Authorized [id number] Closed 02/09/2020 02/08/2021 1 1 Encounter Details Date Type Department Care Team Description 02/09/2020 Orders Only Department of Mark Munoz Malignant Neoplasm Of Dermatology in [place] Ear Basal Cell [place], [place] [address] [facility] Carcinoma Left [address] [place], [place] (Primary Dx) [place] [phone] Social History Tobacco Use Types Packs/Day Years [...] How often do you attend presybeterian or jew Patient refused 05/13/2021 services? Do you belong to any clubs or organizations such as Patient refused 05/13/2021 presybeterian groups, unions, frahereO or athletic groups, or school groups? How [...] for the very basics like Not h bertah at all 05/13/2021 food, housing, medical care, [...] of this encounter Plan of Treatment Scheduled Orders Name Type Priority Associated Diagnoses [facility]O [facility] 1-4 sites Dermatology Routine Malignant Neoplasm Of Expected: 02/23/2020 Ear Basal Cell Carcinoma (Ap proximate), Left Expires: 2022 documented as of this encounter Visit Diagnoses Diagnosis Malignant Neoplasm Of Ear Basal Cell Car cinoma Left - Primary documented in this encounter Care Teams Blocking Machine Operator Second Relationship Specialty Start Date End Date Jeancarlos Oquendo P.A.-C. PCP - General Family Medicine 09/01/19 12/15/21 [address] [place] [phone] documented as of this encounter
--- OUTSIDE RECORDS SUMMARY | 2022-06-22 11:38 | XMS_ITS | Encounter Summary ---
:1940 Author Organization [facility] Address [address] [place] [address] Care Team Providers Name Role Phone Jeancarlos Oquendo P.A.-C. Primary Care Provider [phone] Encounter Details Date Type Department Care [...] 05/13/2021 relatives? How often do you attend latter-day or mosque Patient refused 05/13/2021 services? Do you belong to any clubs or organizations such as Patient refused 05/13/2021 latter-day groups, unions, fraternal or athletic groups, or [...] Associated Comments Diagnosis DERMATOLOGY IMAGE Routine 01/27/2020 12:00 Result s for this EXAM PM CDT procedure are i n the results section. documented in this encounter Results cheek, left nasolabial fold 27 Mohs micrographic surgery-Dermatology Image Exam (01/27/2020 12:00 PMCDT) Specimen (Source) Anatomical Collection Method Collection [...] on filedocumented in this encounter Care Teams Tattoo And Body Artist Relationship Specialty Start Date End Date Jeancarlos Oquendo P.A.-C. PCP - General Family Medicine 09/01/19 12/15/21 [address] [place] [phone] documented as of this encounter
--- OUTSIDE RECORDS SUMMARY | 2022-06-22 11:38 | XMS_ITS | Encounter Summary ---
:1940 Author Organization [facility] Address [address] [place] [address] Care Team Providers Name Role Phone Jeancarlos Oquendo P.A.-C. Primary Care Provider [phone] Encounter Details Date Type Department Care [...] 05/13/2021 relatives? How often do you attend mosque or adventist Patient refused 05/13/2021 services? Do you belong to any clubs or organizations such as Patient refused 05/13/2021 mosque groups, unions, fraternal or athletic groups, or [...] Associated Comments Diagnosis DERMATOLOGY IMAGE Routine 01/27/2020 12:15 Result s for this EXAM PM CDT procedure are i n the results section. documented in this encounter Results cheek, left nasolabial fold 27 Mohs micrographic surgery-Dermatology Image Exam (01/27/2020 12:15 PMCDT) Specimen (Source) Anatomical Collection Method Collection [...] on filedocumented in this encounter Care Teams Sugar Mixer Relationship Specialty Start Date End Date Jeancarlos Oquendo P.A.-C. PCP - General Family Medicine 09/01/19 12/15/21 [address] [place] [phone] documented as of this encounter
--- OUTSIDE RECORDS SUMMARY | 2022-06-22 11:38 | XMS_ITS | Encounter Summary ---
:1940 Author Organization [facility] Address [address] [place] [address] Care Team Providers Name Role Phone Jeancarlos OquendoCBrant Primary Care Provider [phone] Reason for Referral Outpatient (Routine) - Closed Specialty Diagnoses / Procedures Referred By Contact Refer red To Contact Family Medicine Diagnoses Hyperlipidemia Mixed Screening Examination Diabetes Mellitus Jeancarlos Oquendo [facility] ion P.A.-CBrant [address] [place] [address] Referral ID Status Reason Start Date Expiration Date Visits Requ ested Visits Authorized [id number] Closed 10/02/2019 10/01/2020 1 1 G RIDE OPERATOR Reason for Visit Reason Comments Follow-up Follow up blood work results , 09/29/19. Wants to talk about colonoscopy results. Outpatient (Routine) - Closed Specialty Diagnoses / Procedures Referred By Contact Refer red To Contact Family Medicine Diagnoses Hyperlipidemia Mixed Screening Examination Diabetes Mellitus Screening Examination For Thyroid Disorder Jeancarlos Oquendo [facility] P.A.-C. [address] [place] [address] Referral ID Status Reason Start Date Expiration Date Visits Requ ested Visits Authorized [id number] Closed 09/01/2019 08/31/2020 1 1 Encounter Details Date Type Department Care Team Description 10/02/2019 Office Visit Department of Family JennyferdevanDonna kevin Cancer Colon (Primary Dx); Medicine in Jeancarlos [place] P.A. -C. Hyperlipidemia Mixed; [place] [address] [facility] Screening Examination Diabetes Mellitus; [address] [place], [place] Screening Examination For Th yroid Disorder; [place] [address] Preoperative Exam; [phone] Anxiety; Gastroesophageal Reflux Disease Without Esophagitis Social History Tobacco Use Types Packs/Day Years [...] 05/13/2021 relatives? How often do you attend synagogue or religion Patient refused 05/13/2021 services? Do you belong to any clubs or organizations such as Patient refused 05/13/2021 synagogue groups, unions, fraternal or athletic groups, or [...] minutes do you engage in exercise at is 20 min 05/13/2021 level? Stress Answer [...] place to sleep or slept in a retirement (including now)? Education Answer Date Recorded What is the highest level of school you have completed or 12 th grade 10/02/2019 the highest degree you have received? Sex Assigned at Date Recorded Female 02/25/2018 7:29 PM CDT documented as of this encounter Last Filed Vital Signs Vital Sign Reading Time Taken Comments Blood Pressure 120/75 10/02/2019 9:37 AM SWING RIDE OPERATOR Pulse 68 10/02/2019 9:37 AM SWING RIDE OPERATOR Temperature 36.1 ??C (97 ??F) 10/02/2019 9:37 AM SWING RIDE OPERATOR Respiratory Rate 16 10/02/2019 9:37 AM SWING RIDE OPERATOR Oxygen Saturation 97% 10/02/2019 9:37 AM SWING RIDE OPERATOR Inhaled Oxygen Concentration - - Weight 66.5 kg (146 lb 9.7 oz) 10/02/2019 9:37 AM SWING RIDE OPERATOR Height 162.7 cm (5' 4.06) 10/02/2019 9:37 AM SWING RIDE OPERATOR Body Mass Index 25.12 10/02/2019 9:37 AM SWING RIDE OPERATOR documented in this encounter H&P Notes Jeancarlos Oquendo P.A.-C. - 10/02/2019 9:30 AM CST PREOPERATIVE HISTORY AND PHYSICAL CHIEF COMPLAINT / REASON FOR VISIT Emma Contreras is a 79 y.o. female who presents for evaluation of Follow-up (Follow up bloodwork results, 09/29/19. Wants to talk about colonoscopy results.). HISTORY OF PRESENT ILLNESS: Emma presents today for preop history and physical. She is due for a colonoscopy. She had a positive fit test a couple years ago. Overall she is doing well she had blood drawn prior to this visit and her labs look excellent her cholesterol is much better controlled when she takes simvastatin. PAST MEDICAL HISTORY: Patient Active Problem List Diagnosis ??? Varicose [...] ??? Smoking status: Former Smoker Types: Cigarettes Last attempt to quit: 1987 Years since quittin.1 ??? Smokeless tobacco: Never Used ??? Tobacco [...] Daughter ??? Hypertension Daughter ??? Cancer Daughter REVIEW OF SYSTEMS: General: Denies recent fever, weight loss, or extreme fatigue. Eyes: Denies double vision or sudden loss of vision. ENT: Denies sore throat, runny nose, ear pain, or hearing loss. Heart:: Denies chest pain or irregular heartbeats. Respiratory: Denies cough, wheezing, shortness of breath. Digestion: Denies nausea, vomiting, diarrhea or constipation. Genito/Urinary: Denies frequent or painful urination. Skin: Denies rash, sores, excessive bruising, or change of a mole. Nerves/Brain: Denies headache, persistent weakness or numbness. Endocrine: Denies excessive thirst or urination, cold or heat intolerance. Blood: Denies unusual bruising or bleeding or enlarged lymph nodes. MEDICATIONS: Current Outpatient Medications Medication Sig Dispense Refill ??? acetaminophen (TYLENOL) 325 mg tablet Take 325 mg by mouth every 4 (four) hours as needed for pain. Generally 1 dose on a rare basis ??? buPROPion XL (WELLBUTRIN XL) 150 mg 24 hr tablet Take 1 tablet (150 mg total) by mouth every morning. 90 tablet 3 ??? omeprazole (PriLOSEC) [address] capsule Take 1 capsule (20 mg total) by mouth every morning before breakfast. 90 capsule 3 ??? simvastatin (ZOCOR) 20 mg tablet Take 1 tablet (20 mg total) by mouth at bedtime. 90 tablet 3 No current facility-administered medications for this visit. ALLERGIES: Allergies Allergen Reactions ??? Latex Other (see comments) Only reacts to powdered latex gloves VITALS: Vitals: 10/02/19 0937 BP: 120/75 BP Location: Left arm Patient Position: Sitting Cuff Size: Large Pulse: 68 Resp: 16 Temp: 36.1 ??C TempSrc: Temporal SpO2: 97% Weight: 66.5 kg Height: 162.7 cm Body mass index is 25.12 kg/m??. PHYSICAL EXAMINATION: General: Patient appears in no acute distress. ENT: TMs no erythema. Throat no erythema. Neck: No lymphadenopathy. No thyroid masses. Heart: Regular rate and rhythm. No murmurs. Lungs: Clear to auscultation. Abdomen: Soft and nontender to palpation. IMPRESSION / REPORT / PLAN: #1 Hyperlipidemia Mixed Her lipids are well controlled I renewed the simvastatin #2 Screening Examination Diabetes Mellitus Will check a metabolic panel again next year #3 Screening Examination For Thyroid Disorder We checked a TSH which was normal #4 Screening Cancer Colon We need to proceed with colonoscopy. She will be ASA class 2 for surgery #5 Preoperative Exam She is ASA class 2 for surgery she will follow-up as scheduled we gave her the prep today #6 Anxiety She tried the Wellbutrin she is not sure if it helped or not she is going to think about continuing it. She has refills if necessary #7 Gastroesophageal Reflux Disease Without Esophagitis I renewed her omeprazole today. Total time spent with her was 25 minutes of which 20 was [id number] coordination of care and counseling Jeancarlos Oquendo P.A.-C. G RIDE OPERATOR documented in this encounter Plan of Treatment Scheduled Referrals Name Type Priority Associated Diagnoses Order S [facility] Medicine Outpatient Referral Routine Hyperlipidem ia Mixed Expected: office visit Screening Examination 2020 (clinic) Diabetes Mellitus (Approxima te), Expires: 10/02/2022 documented as of this encounter Results (ABNORMAL) Lipid Panel (10/12/2020 8:02 AM SWING RIDE OPERATOR) P athologist Signature Cholesterol, 296 (H) mg/dL 10/12/2020 [place] Total 2:52 PM SWING RIDE OPERATOR Comment: ----REFERENCE VALUE---- Desirable: < 200 Borderline high: 200 - 239 High: > or = 240 Triglycerides 110 mg/dL 10/12/2020 2:52 PM SWING RIDE OPERATOR OWA T Comment: ----REFERENCE VALUE---- Normal: <150 Borderline high: 150-199 High: 200-499 Very high: > or =500 Cholesterol, HDL 57 >=50 mg/dL 10/12/2020 2:52 PM SWING RIDE OPERATOR OWAT Calculated LDL 217 (H) mg/dL 10/12/2020 2:52 PM SWING RIDE OPERATOR OW AT Comment: The markedly elevated LDL level is sugge stive of a genetic condition such as familial hypercholesterolemia (FH) or familial defective apolipoprotei n B-100 (FDB). Molecular genetic testing for FH and FDB is available through [facility]: Hyperc holesterolemia Gene Panel (test [...] or the on-line test ko jerome at [employer] for informati on about how to order these tests or to speak with a [facility] counselor. Further interpretation would require cli nical information. ----REFERENCE VALUE---- Desirable: <100 Above Desirable: 100-129 Borderline high: 130-159 High: 160-189 Very high: > or =190 Cholesterol, Non-HDL, Calculated 239 (H) mg/dL 021 2:52 PM SWING RIDE OPERATOR OWAT Comment: ----REFERENCE VALUE---- Desirable: <130 Above Desirable: 130-159 Borderline high: 160-189 High: 190-219 Very high: > or =220 Specimen Anatomical Collection Method Collection Time Receive d Time (Source) Location / / Volume Laterality Blood (Blood, 10/12/2020 8:02 AM 10/13/19 21 Venous) SWING RIDE OPERATOR 10:23 AM SWING RIDE OPERATOR Jeancarlos Oquendo P.A.-C. LAB BLOOD ADD-ON Performing Organization Address City/State/ZIP Code Phon e Number [facility] [address] [place] [address] [facility] [place] [address] System in [place] [address] (ABNORMAL) Comprehensive Metabolic Panel (10/12/2020 8:02 AM SWING RIDE OPERATOR) P athologist Signature Potassium, P 5.0 3.6 - 5.2 10/12/2020 [place] mmol/L 2:52 PM SWING RIDE OPERATOR Sodium, P 141 135 - 145 10/12/2020 [place] mmol/L 2:52 PM SWING RIDE OPERATOR Chloride, P 106 98 - 107 10/12/2020 [place] mmol/L 2:52 PM SWING RIDE OPERATOR Bicarbonate, P 26 22 - 29 10/12/2020 [place] mmol/L 2:52 PM SWING RIDE OPERATOR Anion Gap, P 9 7 - 15 10/12/2020 [place] 2:52 PM SWING RIDE OPERATOR BUN (Blood Urea 14 6 - 21 10/12/2020 [place] Nitrogen), P mg/dL 2:52 PM SWING RIDE OPERATOR Creatinine 0.74 0.59 - 10/12/2020 [place] 1.04 mg/dL 2:52 PM SWING RIDE OPERATOR eGFR-Black/Afric 87 >=60 10/12/2020 [place] an Mauritian mL/min/BSA 2:52 PM SWING RIDE OPERATOR Comment: ----ADDITIONAL INFORMATION---- Estimated GFR calculated using the 2009 CKD_EPI creatinine equation. eGFR Non-Black/ 76 >=60 mL/min/BSA 2:52 PM SWING RIDE OPERATOR [place] Comment: ----ADDITIONAL INFORMATION---- Estimated GFR calculated using the 2009 CKD_EPI creatinine equation. Calcium, Total, P 10.4 (H) 8.8 - 10.2 mg/dL 10/12/2020 2:52 PM SWING RIDE OPERATOR [place] Glucose, P 111 70 - 140 mg/dL 10/12/2020 2:52 PM SWING RIDE OPERATOR O STEVEN Protein, Total, P 7.1 6.3 - 7.9 g/dL 10/12/2020 2:52 P M SWING RIDE OPERATOR [place] Albumin, P 4.1 3.5 - 5.0 g/dL 10/12/2020 2:52 PM SWING RIDE OPERATOR O STEVEN Aspartate Aminotransferase 25 8 - 43 U/L 10/12/2020 2 :52 PM SWING RIDE OPERATOR [place] (AST), P Alkaline Phosphatase, P 72 35 - 104 U/L 10/12/2020 2: 52 PM SWING RIDE OPERATOR [place] Alanine Aminotransferase 14 7 - 45 U/L 10/12/2020 2:5 2 PM SWING RIDE OPERATOR [place] (ALT), P Bilirubin, Total, P 0.3 <=1.2 mg/dL 10/12/2020 2:52 PM SWING RIDE OPERATOR [place] Specimen Anatomical Collection Method Collection Time Receive d Time (Source) Location / / Volume Laterality Blood (Blood, 10/12/2020 8:02 AM 10/13/19 21 Venous) SWING RIDE OPERATOR 10:23 AM SWING RIDE OPERATOR Jeancarlos Oquendo P.A.-C. LAB BLOOD ADD-ON Performing Organization Address City/State/ZIP Code Phon e Number [facility]- [address] [place] [address] [facility] [place] [address] System in [place] [address] [place] [address] documented in this encounter Visit Diagnoses Diagnosis Screening Cancer Colon - Primary Hyperlipidemia Mixed Screening Examination Diabetes Mellitus Screening Examination For Thyroid Disord er Preoperative Exam Anxiety Gastroesophageal Reflux Disease Without Esophagitis documented in this encounter Care Teams Registered Nurse Relationship Specialty Start Date End Date Jeancarlos Oquendo P.A.-C. PCP - General Family Medicine 09/01/19 12/15/[address] [place] [phone] documented as of this encounter
--- OUTSIDE RECORDS SUMMARY | 2022-06-22 11:38 | XMS_ITS | Encounter Summary ---
:1940 Author Organization [facility] Address [address] [place] [address] Care Team Providers Name Role Phone Opal Vazquez M.D. Primary Care Provider Encounter Details Date Type Department Care Team Description 10/31/2018 Orders Only Department of Family Chelsey Vazquez M.D. Medicine, [facility], [address] [facility] [place] [address] [address] [facility] [address] [phone] Social History Tobacco Use Types Packs/Day Years [...] 05/13/2021 relatives? How often do you attend orthodoxy or nondenominational Patient refused 05/13/2021 services? Do you belong to any clubs or organizations such as Patient refused 05/13/2021 orthodoxy groups, unions, fraternal or athletic groups, or [...] place to sleep or slept in a jail (including now)? Sex Assigned at Date Recorded Female 02/25/2018 7:29 PM CDT documented as of this encounter Plan of Treatment Not on filedocumented as of this encounter Visit Diagnoses Not on filedocumented in this encounter Care Teams Rebar Bender Relationship Specialty Start Date End Date Opal Vazquez M.D. PCP - General 01/18/17 07/06/19 documented as of this encounter
--- OUTSIDE RECORDS SUMMARY | 2022-06-22 11:38 | XMS_ITS | Encounter Summary ---
:1940 Author Organization [facility] Address [address] [place] [address] Care Team Providers Name Role Phone Jeancarlos Oquendo P.A.-C. Primary Care Provider [phone] Reason for Referral Outpatient (Routine) - Closed Specialty Diagnoses / Procedures Referred By Contact Refer red To Contact Dermatology Diagnoses Keratosis Actinic Imani Ballesteros M.D. [facility] Procedures LUISITO TESSIE-U/ ALA (PDT) [address], [place] [address] Referral ID Status Reason Start Date Expiration Date Visits Requ ested Visits Authorized [id number] Closed 10/15/2019 10/14/2020 1 1 Reason for Visit Outpatient (Routine) - Closed Specialty Diagnoses / Procedures Referred By Contact Refer red To Contact Dermatology Diagnoses Keratosis Actinic Jeancarlos Oquendo P.A.-C. [facility] [address] [place] [address] Referral ID Status Reason Start Date Expiration Date Visits V isits Requested Authorized [id number] Closed Specialty 09/01/2019 08/31/2020 1 1 Services Required Encounter Details Date Type Department Care Team Description 10/15/2019 Comprehensive Visit Department of Imani Ballesteros Cancer Skin Basal Cell Personal History (Primary Dx); Dermatology in [place], M.D. Keratosis Actinic; [place] [address] [address] Tumor Skin Unce rtain Behavior; [facility] [address] Dermatoheliosis [address] [place], [place] [phone] Social History Tobacco Use Types Packs/Day Years [...] 05/13/2021 relatives? How often do you attend religion or gnosticist Patient refused 05/13/2021 services? Do you belong to any clubs or organizations such as Patient refused 05/13/2021 religion groups, unions, fraternal or athletic groups, or [...] documented as of this encounter Progress Notes Imani Ballesteros M.D. - 10/15/2019 3:00 PM CDT CHIEF COMPLAINT / REASON FOR VISIT History of basal cell carcinoma Lesion of concern, left congregation HISTORY OF PRESENT ILLNESS Ms. Emma Contreras is a 79 y.o. female who presents today accompanied by her daughter for screening skin examination. 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 Today, the patient reports a lesion of concern involving the left congregation. She reports this has been treated with cryotherapy multiple times in the past. Itis irritated. She denies any other new, growing, changing, symptomatic skin lesions. She reports a history of significant sun exposure in her youth with sunburns. When she was young shehad red hair and freckles. PAST MEDICAL HISTORY 1. Basal cell carcinoma, right nose, status post Mohs micrographic surgery 2016 FAMILY HISTORY No family history of melanoma. PHYSICAL EXAM General: Awake, alert, in no acute distress, and with appropriate affect. Eyes: No scleral injection or icterus. No eyelid abnormalities. Cardio: No lower extremity edema. Skin: Focused examination of the head was performed per request. Diffuse actinic damage throughout the face. Well-healed scar of the right nose without any evidence of recurrence of her previous basal cell carcinoma. Involving the left medial labial fold, is a 4 mm shiny firm papule with arborizing vessel and focal central area of hemorrhagic crust. Involving the left congregation is a large pink to lang tobrown waxy stuck on appearing plaque with cerebriform pattern under dermoscopy consistent with seborrheic keratosis. Multiple pink macules overlying gritty scale involving the helix and antihelix of the left ear. ASSESSMENT / PLAN #1 Skin tumor of uncertain behavior, left medial labial fold Differential dx: BCC versus dermal nevus versus fibrous papule Favor basal cell carcinoma. Discussed the option of punch biopsy with clinical margins verses partial shave biopsy and likely Mohs micrographic surgery if this does represent a basal cell carcinoma. The patient wanted to proceed with the latter. Photographs obtained. Shave biopsy performed. PROCEDURAL PAUSE Prior to the procedure, final verification of the patient identity and correct marked surgical site was performed. SHAVE BIOPSY PROCEDURE The anesthesia used was 1% lidocaine with epinephrine 1:200,000. The skin was prepped in a sterile fashion with alcohol. A shave biopsy specimen was obtained from left medial labial fold. Blood loss: Minimal. Complications: None. Wound care: Routine. The specimen was sent for Dermatopathology. The pathology report and recommendations will be communicated to the patient. #2 Diffuse actinic damage, face Recommended field therapy. Discussed options such as Efudex versus PDT blue light therapy. The patient has opted for PDT blue light therapy, which in order was placed for to schedule at her convenience. Expectations before, during, and after treatment were discussed. #3 Actinic keratoses x 2, right helix and antihelix After explaining the procedure, discussing the associated risks, benefits, and alternatives, and obtaining verbal informed consent, the lesion(s) underwent treatment with liquid nitrogen cryotherapy inthe standard fashion. Wound care was discussed. Patient offered educational materials. #4 Inflamed seborrheic keratoses x 2, left congregation and left upper forehead Given the inflamed nature and symptomatic nature of this lesion, treatment is medically indicated. After explaining the procedure, discussing the associated risks, benefits, and alternatives, and obtaining verbal informed consent, the lesion(s) underwent treatment with liquid nitrogen cryotherapy in the standard fashion. Wound care was discussed. Patient offered educational materials. #5 History of basal cell carcinoma, right nose, S/P mohs micrographic surgery 2017, no evidence of recurrence Sun protection and sun avoidance were reviewed with the patient. Educational materials were providedregarding skin self-examination, the warning signs and symptoms of skin cancer, and the proper use of sunscreens. I would recommend a full skin cancer screening examination with an appropriately trained clinician every year, or sooner if there are concerns. All questions answered. documented in this encounter Plan of Treatment Scheduled Orders Name Type Priority Associated Diagnoses Order S chedule LUISITO TESSIE-U/ ALA (PDT) Dermatology Routine Keratosis Actinic Ex pected: 10/15/2019 (Approximate), Expires: 10/14/2022 documented as of this encounter Procedures Procedure Name Priority Date/Time Associated Diagnosis Comme nts DERMATOPATHOLOGY Routine 10/15/2019 3:22 PM Keratosis Actinic Results for this CDT procedure are i n the results section. documented in this encounter Results Dermatopathology (10/15/2019 3:22 PM CDT) Component Value Ref Test Analysis Performed At [facility] gist Range Method Time Signature 10/17/2019 [facility] 3:56 PM CDT Report [place] 10/17/2019 [facility] electronically [place], 3:56 PM CDT signed by Elmer Gross Description Received in formalin labeled with the patient's n heather, 10/17/2019 PDR medical record number, and left upper cheek is a 0.4 x 3:56 PM CDT 0.4 x 0.1 cm pale lang skin shave biopsy. No discrete lesion is grossly identified on the skin surface. ??Specimen is bisected and submitted entirely in cassette A1. ??Grossed by ARG. Interpretation FINAL DIAGNOSIS 10/17/2019 PDR A. ??Left upper cheek, Skin shave biopsy: ??Nodular basal 3:56 PM CDT cell carcinoma, involving biopsy border Specimen (Source) Anatomical Collection Method Collection Time Re ceived Time Location / / Volume Laterality Skin (Left upper 10/15/2019 3:22 PM cheek) CDT Narrative This result has an attachment that is no t available. Imani Ballesteros M.D. LAB PATH DERM ORDERABLES Performing Organization Address City/State/ZIP Code Phon e Number [facility] - [address] [place], [place] [address] [place] [address] [facility] [address] documented in this encounter Visit Diagnoses Diagnosis Cancer Skin Basal Cell Personal History - Primary Keratosis Actinic Tumor Skin Uncertain Behavior Dermatoheliosis documented in this encounter Care Teams Legal Aide Relationship Specialty Start Date End Date Jeancarlos Oquendo P.A.-C. PCP - General Family Medicine 09/01/19 12/15/21 [address] [place] [address] documented as of this encounter
--- OUTSIDE RECORDS SUMMARY | 2022-06-22 11:38 | XMS_ITS | Encounter Summary ---
:1940 Author Organization [facility] Address [address] [place] [address] Care Team Providers Name Role Phone Jeancarlos Oquendo P.A.-C. Primary Care Provider [phone] Reason for Visit Reason Comments COVID Inquiry Encounter Details Date Type Department Care Team Description 01/19/2020 Clinical Communication Department of Nelly Hawthorne COVID Inquiry Dermatology in .. [place], [place] [address] [place] [address] [address] [facility], [place] [address] [place] [address] [phone] Social History Tobacco Use Types Packs/Day Years [...] 05/13/2021 relatives? How often do you attend hinduism or episcopalian Patient refused 05/13/2021 services? Do you belong to any clubs or organizations such as Patient refused 05/13/2021 hinduism groups, unions, fraternal or athletic groups, or [...] this encounter Miscellaneous Notes Telephone Encounter - April Killian - 01/19/2020 2:55 PM CDT (Note for [facility] locations only: If the patient states they [...] days? no Route reply to: BERNADETTE BARRERA Scheduling Contact Number:[phone] documented in this encounter Plan of Treatment Not on filedocumented as of this encounter Visit Diagnoses Not on filedocumented in this encounter Care Teams Electrical Repairer Relationship Specialty Start Date End Date Jeancarlos Oquendo P.A.-C. PCP - General Family Medicine 09/01/19 12/15/[address] [place] [phone] documented as of this encounter
--- OUTSIDE RECORDS SUMMARY | 2022-06-22 11:38 | XMS_ITS | Encounter Summary ---
:1940 Author Organization [facility] Address [address] [place] [address] Care Team Providers Name Role Phone Jeancarlos Oquendo P.A.-C. Primary Care Provider [phone] Encounter Details Date Type Department Care Team Description 01/09/2020 Orders Only Department of Gene Maradiaga Encou nter For Dermatology in M.D. Screening For Other [place], [place] [address] Viral Diseases [address] [place] [address] (COVID-19) (Primary [place], [place] [phone] (Wo rk) Dx) [phone] Social History Tobacco Use Types Packs/Day Years [...] 05/13/2021 relatives? How often do you attend oriental orthodox or spiritism Patient refused 05/13/2021 services? Do you belong to any clubs or organizations such as Patient refused 05/13/2021 oriental orthodox groups, unions, fraternal or athletic groups, [...] on filedocumented as of this encounter Results SARS Coronavirus-2, PCR Asymptomatic (01/25/2020 11:53 AM CDT) [place] gist Method Time Signature SARS Swab, 01/26/2020 [facility] Coronavirus-2 Nasopharynx 2:15 PM CDT Source SARS Undetected Undetected 01/26/2020 [facility] Coronavirus-2 2:15 PM CDT , PCR Comment: SARS-CoV-2 RNA absent. This result does not rule out COVID-19 in the patient, as the sensitivity of the test depends o n the timing of the specimen collection and quality of the specimen. Result should be correlated with patient's history and clinical presentat ion. ----ADDITIONAL INFORMATION---- This test was developed and its performa nce characteristics determined by [facility] in a manner co nsistent with CLIA requirements. Independent review by the U.S. Food and Drug Administration is pending. Visit the CDC website: https://www.cdc.gov/coronavirus/ ?? for the most recent guidelines on [place] virus testing. Fact Sheet for Healthcare Providers: (https://www.rivesSportody.com/it-mmfil es/ Provider_Fact_Sheet_for_[place]_COVI D-19.pdf) Fact Sheet for Patients: (https://www.[employer].com/it-mmfil es/ Patient_Fact_Sheet_for_COVID-19.pdf) Specimen Anatomical Collection Method Collection Time Receive d Time (Source) Location / / Volume Laterality Varies 01/25/2020 11:53 01/25/2020 (Nasopharynx) AM CDT 11:53 AM CDT Gene Maradiaga M.D. LAB MICROBIOLOGY - GENERAL O RDMICHAEL Performing Organization Address City/[facility] [place] Phon e Number [facility] - [address] [place], [place] [address] [facility] [place] [place] [address] Laboratories-[facility] [facility] [address] [facility] SARS Coronavirus 2 IgG Ab, Serum (01/25/2020 9:53 AM CDT) P athologist Signature SARS-CoV-2 IgG Negative Negative 01/26/2020 [facility] Ab 12:56 PM CDT Comment: No IgG antibodies to SARS-CoV-2 detected . ?? Negative results may occur in serum fatimah ected too soon following infection, or in immunosuppres sed patients. ?? Follow-up testing with a molecular test is recommended in symptomatic patients. ??This test zev uld not be used to exclude active/recent COVID-19. ?? Testing was performed using the EUROIMMUN Rkfy-QUUI-OfJ-2 MONICO (IgG), which has received Emergency Use Authori zation (EUA) by the U.S. Food and Drug Administration . ?? Fact sheets for this EUA assay can be fo und at the following links: ?? Factsheet for healthcare Providers: ?? https://www.fda.gov/media/623892/downloa d Factsheet for healthcare Patients: ?? https://www.fda.gov/media/913421/downloa d Specimen Anatomical Collection Method Collection Time Receive d Time (Source) Location / / Volume Laterality Blood (Blood, 01/25/2020 9:53 AM 01/26/20 20 7:49 Venous) CDT AM CDT Gene Maradiaga M.D. LAB MICROBIOLOGY - BLOOD ORD MICHAEL Performing Organization Address City/[facility] Code Phon e Number [facility] [address] [place], [place] [address] [place] [address] [place] [address] Laboratory Medicine and Pathology [address] [place] documented in this encounter Visit Diagnoses Diagnosis Encounter For Screening For Other Viral Diseases (COVID-19) - Primary documented in this encounter Care Teams Microsoft Infrastructure Consultant Relationship Specialty Start Date End Date Jeancarlos Oquendo P.A.-C. PCP - General Family Medicine 09/01/19 12/15/[address] [place] [phone] documented as of this encounter
--- OUTSIDE RECORDS SUMMARY | 2022-06-22 11:38 | XMS_ITS | Encounter Summary ---
:1940 Author Organization [facility] Address [address] [place] [address] Care Team Providers Name Role Phone Jeancarlos Oquendo P.A.-C. Primary Care Provider [phone] Encounter Details Date Type Department Care [...] 05/13/2021 relatives? How often do you attend mormonism or zoroastrian Patient refused 05/13/2021 services? Do you belong to any clubs or organizations such as Patient refused 05/13/2021 mormonism groups, unions, fraternal or athletic groups, or [...] Associated Comments Diagnosis DERMATOLOGY IMAGE Routine 01/27/2020 12:10 Result s for this EXAM PM CDT procedure are i n the results section. documented in this encounter Results cheek, left nasolabial fold 27 Mohs micrographic surgery-Dermatology Image Exam (01/27/2020 12:10 PMCDT) Specimen (Source) Anatomical Collection Method Collection [...] on filedocumented in this encounter Care Teams Bundle Sorter Relationship Specialty Start Date End Date Jeancarlos Oquendo P.A.-C. PCP - General Family Medicine 09/01/19 12/15/21 [address] [place] [phone] documented as of this encounter
--- OUTSIDE RECORDS SUMMARY | 2022-06-22 11:38 | XMS_ITS | Encounter Summary ---
:1940 Author Organization [facility] Address [address] [place] [address] Care Team Providers Name Role Phone Jeancarlos Oquendo P.A.-C. Primary Care Provider [phone] Reason for Referral Outpatient (Routine) - Closed Specialty Diagnoses / Procedures Referred By Contact Refer red To Contact Dermatology Diagnoses Malignant Neoplasm Of Face Basal Cell Imani Ballesteros M.D. [facility] Procedures LUISITO MOHS 1-4 sites [address] [facility] [place], [place] [address] Referral ID Status Reason Start Date Expiration Date Visits Requ ested Visits Authorized [id number] Closed 10/20/2019 10/19/2020 1 1 Encounter Details Date Type Department Care Team Description 10/20/2019 Orders Only Department of Imani Ballesteros Malignant Neoplasm Of Dermatology in M.DBrant Face Basal Cell [place], [place] [address] (Primary Dx) [address] [place], [place] [phone] [id number] (Wo rk) Social History Tobacco Use Types [...] How often do you attend baptism or scientologist Patient refused 05/13/2021 services? Do you belong [...] Name Type Priority Associated Diagnoses [facility] 1-4 sites Dermatology Routine Malignant Neoplasm Of Expected: 11/03/2019 Face Basal Cell (Approximate ), Expires: 2022 documented as of this encounter Visit Diagnoses Diagnosis Malignant Neoplasm Of Face Basal Cell - Primary documented in this encounter Care Teams Parking Lot Chauffeur Relationship Specialty Start Date End Date Jeancarlos Oquendo P.A.-C. PCP - General Family Medicine 09/01/19 12/15/21 [address] [place] [phone] documented as of this encounter
--- OUTSIDE RECORDS SUMMARY | 2022-06-22 11:38 | XMS_ITS | Encounter Summary ---
:1940 Author Organization [facility] Address [address] [place] [address] Care Team Providers Name Role Phone Jeancarlos Oquendo P.A.-C. Primary Care Provider [phone] Reason for Visit Reason Comments COVID Inquiry Encounter Details Date Type Department Care Team Description 02/03/2020 Clinical Communication Department of Mark Munoz COV ID Inquiry Dermatology in [place], [place] [address] [facility] [address] [place] [phone] Social History Tobacco Use Types Packs/Day Years [...] 05/13/2021 relatives? How often do you attend evangelical or episcopal Patient refused 05/13/2021 services? Do you belong to any clubs or organizations such as Patient refused 05/13/2021 evangelical groups, unions, fraternal or athletic groups, or [...] this encounter Miscellaneous Notes Telephone Encounter - Elias Rocktaz [place] - 02/03/2020 7:46 AM CDT ([facility] and [facility] locations only: If the patient is not having symptoms and is requesting COVID-19 Nasal Swab testing only, use the process listed in the COVID19 Patient Requesting COVID PCR Test OTG COVID-19 [place] Patient Requesting COVID PCR Test). 1. Do you have a pending COVID [...] to: BERNADETTE BARRERA DESK Scheduling Contact Number: [phone] documented in this encounter Plan of Treatment Not on filedocumented as of this encounter Visit Diagnoses Not on filedocumented in this encounter Care Teams Release Of Information Clerk Relationship Specialty Start Date End Date Jeancarlos Oquendo P.A.-C. PCP - General Family Medicine 09/01/19 12/15/[address] [place] [phone] documented as of this encounter
--- OUTSIDE RECORDS SUMMARY | 2022-06-22 11:38 | XMS_ITS | Encounter Summary ---
:1940 Author Organization [facility] Address [address] [place] [address] Care Team Providers Name Role Phone Jeancarlos Oquendo P.A.-C. Primary Care Provider [phone] Reason for Visit Outpatient (Routine) - Closed Specialty Diagnoses / Procedures Referred By Contact Refer red To Contact Dermatology Imani Ballesteros M.D . [address] [address] Referral ID Status Reason Start Date Expiration Date Visits Requ ested Visits Authorized [id number] Closed 12/16/2019 12/15/2020 1 1 Encounter Details Date Type Department Care Team Description 02/03/2020 Office Visit Department of Mark Munoz Tumor Skin Uncertain Behavior (Primary Dx); Dermatology in [place] Keratosis Seborrheic; [place], [place] [address] [facility] Keratosis Actinic [address] [place] [phone] Social History Tobacco Use Types Packs/Day Years [...] 05/13/2021 relatives? How often do you attend anglican or yazidi Patient refused 05/13/2021 services? Do you belong to any clubs or organizations such as Patient refused 05/13/2021 anglican groups, unions, fraternal or athletic groups, or [...] a [place] [facility] (including now)? Education Answer Date Recorded What is the highest level of school you have completed or 12 th grade 10/02/2019 the highest degree you have received? Sex Assigned at Date Recorded Female 02/25/2018 7:29 PM CDT documented as of this encounter Consult Notes Mark Munoz M.D. - 02/03/2020 8:40 AM CDT SUBJECTIVE REASON FOR CONSULT Spot on left congregation, spots on chest. HISTORY OF PRESENT ILLNESS Mrs. Contreras is an 79-year-old woman who has a history of basal cell carcinoma of her right nosein 2016 as well as her left upper cheek in January 2020. Mrs. Contreras underwent photodynamic therapy of her face in December of 2019. She noted that it felt like a sunburn for approximately 3 days, but then when she started applying Neosporin over the area instead of Vaseline it started to improve. The patient notes a spot on left congregation which has been frozen with liquid nitrogen cryotherapy 3 or 4 times, and she would like to make sure it is okay. She also notes some rough spots on the upper chest. She denies any other spots of concern. SOCIAL HISTORY Mrs. Contreras is originally from [place], [place], but states she has lived over the last 60 years in [place], [place]. OBJECTIVE PHYSICAL EXAMINATION General: Alert, oriented, no acute distress. Skin: Limited skin examination of the scalp, face, ears, neck, upper chest, and bilateral upper extremities was performed. On the upper chest, 2 pink scaly macules compatible with actinic keratosis (representing the lesions of concern to the patient). On the left congregation was a large light brown flattened hyperkeratotic plaque compatible with seborrheic keratosis (representing the other lesion of concern to Mrs. Contreras). There is no evidence of recurrent basal cell carcinoma on examination of the face. Examination of left postauricular along the inferior aspect revealed a 7- mm pink papule with rolled borders and telangiectasias on dermoscopic evaluation. ASSESSMENT / PLAN #1 Rule out basal cell carcinoma, left postauricular Photograph obtained. After informed consent was obtained the area was anesthetized with 1% lidocainewith epinephrine. Shave biopsy was then performed by 1 of our Dermatology nurses, Mr. Benson Bongfelipa. The lesion is submitted for H&E microscopic evaluation. Hemostasis obtained. Bandage applied. Wound care instructions were provided to the patient. I will correspond with the patient regarding the pathology results. If this reveals basal cell carcinoma, I would recommend further treatment with Mohs micrographic surgery. #2 Actinic keratoses x2, chest These were treated with liquid nitrogen cryotherapy. Post cryotherapy wound care instructions were provided to patient. #3 Seborrheic keratosis, left congregation The patient was reassured regarding the benign nature. #4 History of basal cell carcinoma, face Recommend a complete skin examination in 1 year. PATIENT EDUCATION: Ready to learn. No apparent learning barriers were identified. Learning preferences include listening. Explained diagnosis and treatment plan; patient/guardian of patient expressed understanding of thecontent. UNIVERSAL PROTOCOL: Procedural pause conducted to verify: correct patient identity, procedure to be performed, and as applicable, correct side and site, correct patient position, and availability of implants, special equipment, or special requirements. CONSENT Discussed the risks, benefits, alternatives, and the necessity of other members of the healthcare team participating in the procedure. All questions answered and consent given. Mark Munoz M.D. CT CT Job ID: [id number] documented in this encounter Plan of Treatment Not on filedocumented as of this encounter Procedures Procedure Name Priority Date/Time Associated Diagnosis Comme nts DERMATOPATHOLOGY Routine 02/03/2020 9:24 AM Tumor Skin Uncerta in Results for this CDT Behavior procedure are in Keratosis Seborr heic the results Keratosis Actinic section. documented in this encounter Results Dermatopathology (02/03/2020 9:24 AM CDT) Component Value Ref Test Analysis Performed At [facility] gist Range Method Time Signature 02/05/2020 [facility] 2:42 PM CDT Report Yudy Shay 02/05/2020 [facility] electronically [place] 2:42 PM CDT signed by Gross Description Received in formalin labeled with the patient's n heather, 02/05/2020 [facility] medical record number, and left lower posterior ear is a 2:42 PM CDT 1.0 x 0.6 x 0.1 cm pale lang skin shave biopsy. ??There is a 0.9 x 0.6 cm pale lang, slightly raised, firm lesion with ill-defined borders encompassing nearly the entire skin surface. ??The specimen is serially sectioned and submitted entirely in cassette A1. Grossed by AV. Interpretation FINAL DIAGNOSIS 02/05/2020 [facility] A. ??Left lower posterior ear, Skin shave biopsy: ??Nodular 2:42 PM CDT basal cell carcinoma, involving biopsy border Specimen (Source) Anatomical Collection Method Collection Time Re ceived Time Location / / Volume Laterality Skin (Left lower 02/03/2020 9:24 AM posterior ear) CDT Narrative This result has an attachment that is no t available. Mark Munoz M.D. LAB PATH DERM ORDERABLES Performing Organization Address City/State/ZIP Code Phon e Number [facility] - [address] [place], [place] [address] [place] [address] Laboratories-[facility] [address] documented in this encounter Visit Diagnoses Diagnosis Tumor Skin Uncertain Behavior - Primary Keratosis Seborrheic Keratosis Actinic documented in this encounter Care Teams Refractory Products Supervisor Relationship Specialty Start Date End Date Jeancarlos Oquendo P.A.-C. PCP - General Family Medicine 09/01/19 12/15/21 [address] [place] [phone] documented as of this encounter
--- OUTSIDE RECORDS SUMMARY | 2022-06-22 11:38 | XMS_ITS | Encounter Summary ---
:1940 Author Organization [facility] Address [address] [place] [address] Care Team Providers Name Role Phone Jeancarlos Oquendo P.A.-C. Primary Care Provider [phone] Reason for Visit Outpatient (Routine) - Closed Specialty Diagnoses / Procedures Referred By Contact Refer red To Contact Dermatology Diagnoses Malignant Neoplasm Of Face Basal Cell Imani Ballesteros M.D. [facility] Procedures LUISITO MOHS 1-4 sites [address] [facility], [place] [address] 8 Referral ID Status Reason Start Date Expiration Date Visits Requ ested Visits Authorized [id number] Closed 10/20/2019 10/19/2020 1 1 Encounter Details Date Type Department Care Team Description 01/27/2020 Procedure visit Department of Donald Whitehead Neoplasm Dermatology sheila Del Valle M.D. Of Face Basal Cell [place], [place] [address] [facility] (Primary Dx) [address] [place] [phone] Social History Tobacco Use Types Packs/Day Years [...] 05/13/2021 relatives? How often do you attend episcopal or tenriism Patient refused 05/13/2021 services? Do you belong to any clubs or organizations such as Patient refused 05/13/2021 episcopal groups, unions, fraternal or athletic groups, or [...] place to sleep or slept in a half-way (including now)? Education Answer Date Recorded What is the highest level of school you have completed or 12 th grade 10/02/2019 the highest degree you have received? Sex Assigned at Date Recorded Female 02/25/2018 7:29 PM CDT documented as of this encounter Last Filed Vital Signs Vital Sign Reading Time Taken Comments Blood Pressure 145/78 01/27/2020 9:19 AM CDT Pulse 63 01/27/2020 9:19 AM CDT Temperature - - Respiratory Rate - - Oxygen Saturation - - Inhaled Oxygen Concentration - - Weight - - Height - - Body Mass Index - - documented in this encounter Procedure Notes Caridad Argueta M.D. - 01/27/2020 9:30 AM CDT PREOP INDICATION: REMOVAL. Date of Surgery: 01/27/2020 Surgeon: Dr. Donald Whitehead Water Mangle Tender: Dr. Caridad Argueta and Dr. Richelle Wells Location: [facility]: Floor:16 Room:[facility] Visit Type: Outpatient PostOp Diagnosis: Nodular basal cell carcinoma Anatomic Location: Left upper cheek Preoperative size: 0.5 x 0.5 cm [facility] number: 27 Indication(s) for Mohs Micrographic Surgery: anatomic location where tissue conservation is critical Procedure(s): Mohs micrographic surgery with guided closure. Procedural pause conducted to verify: correct patient [...] Histologic tumor-free margins were obtained in 1 stage and 2 blocks by standard Mohs micrographic techniques with the Mohs surgeon performing both the surgery and pathology. The final defect depth was down to level of: subcutaneous fat. Postoperative size: 1 x 1 cm. Anesthesia with 1% lidocaine with 1:200,000 epinephrine and another sterile prep were performed. Thewound was undermined, and hemostasis was obtained with electrocoagulation. To avoid anatomic distortion, a guiding suture was placed with 5-0 Vicryl suture. Postoperative length: 1.2 cm. Estimated blood loss: Minimal. Complications: None. Wound care: Routine. Postoperative medications: None Associated attestation - Donald Whitehead M.D. - 01/27/2020 3:20 PM CDT Having reviewed the history, examined the patient, as well as discussed management, I agree with theimpression and plan as documented by Dr. Caridad Argueta ([phone]) and Richelle Wells M.D. ([phone]) who assisted me. In addition, I was also present for the critical portion and immediately available for the entire procedure we performed. documented in this encounter Consult Notes Caridad Argueta M.D. - 01/27/2020 9:30 AM CDT Referral Imani Ballesteros M.D. Chief Complaint Basal cell carcinoma Supervising franchise field consultant: Dr. Whitehead HISTORY OF THE PRESENT ILLNESS Emma Contreras is a 79 y.o. female who presents today for treatment of nodular basal carcinoma over left upper cheek The patient has prior history of skin cancer. The dermatologic surgery preoperative information sheet was reviewed. The patient reports Motrin useand occasional alcohol . Patient denies Heart disease, Pacemaker, Defibrillator, Lung disease, Liver disease, Stroke, Infectious disease, Diabetes, Organ transplant, Bleeding problems, Artificial joints \ and Tobacco use. Allergies Allergen Reactions ??? Latex Other (see comments) Only reacts to powdered latex gloves PHYSICAL EXAM Vitals: Vitals: 01/27/20 0919 BP: 145/78 Pulse: 63 General: Awake, alert, in no acute distress Skin: A limited skin examination was performed per patient preference. Biopsy site noted over left upper cheek IMPRESSION AND PLAN #1 Nodular basal cell carcinoma over left upper cheek Patient presents today for further treatment of a basal cell carcinoma. We discussed the diagnosis and potential treatment options. Given the location and pathology, we recommended treatment with Mohs micrographic surgery. After discussing alternatives, risks including but not limited to bleeding, scar formation, infection, recurrence, and benefits, patient elected to proceed. Briefly, the area was treated with Mohs micrographic surgery and closed with guided closure. See operative note for further details. Wound care was discussed. She should be seen at least once year for full skin cancer screening exam PROCEDURAL PAUSE Procedural pause conducted to verify: correct patient identity, procedure to be performed, and as applicable, correct side and site, correct patient position, and availability of implants, special equipment, or special requirements. INFORMED CONSENT Discussed the risks, benefits, alternatives, and the necessity of other members of the healthcare team participating in the procedure. All questions answered and consent given. PATIENT EDUCATION Ready to learn. No apparent learning barriers were identified. Learning preferences include listening. Explained diagnosis and treatment plan; patient/guardian of patient expressed understanding of thecontent. Associated attestation - Donald Whitehead M.D. - 01/27/2020 3:21 PM CDT Having reviewed the history, examined the patient, as well as discussed management, I agree with theimpression and plan as documented by Dr. Caridad Argueta ([phone]) who assisted me. In addition, I was also present for the critical portion and immediately available for the entire procedure we p erformed. documented in this encounter Plan of Treatment Not on filedocumented as of this encounter Visit Diagnoses Diagnosis Malignant Neoplasm Of Face Basal Cell - Primary documented in this encounter Administered Medications Inactive Administered Medications - up to 3 most recent administrations Medication Order MAR Action Action Date Dose Rate Site gihffhvqnsa-gznyinbpr-LXUZCTEtqjr Given 01/27/2020 10:20 AM CDT 2 mL 0.25%-1%-1:200,000 injection 2-25 mL 2-25 mL, injection, As needed, may repeat if the patient complains of pain/discomfort at the site up to 50 mL for entire procedure, Starting on Sun01/27/20 at 0903 lidocaine-EPINEPHrine 1%-1:200,000 injection Given 01/27/2020 9: 48 AM CDT 2 mL 2-50 mL (XYLOCAINE W/EPI) 2-50 mL, injection, As needed, may repeat if the patient complains of pain/discomfort at the site up to 50 mL for entire procedure, Starting on Sun01/27/20 at 0903, For 1 day documented in this encounter Care Teams Research Support Specialist Relationship Specialty Start Date End Date Jeancarlos Oquendo P.A.-C. PCP - General Family Medicine 09/01/19 12/15/[address] [place] [phone] documented as of this encounter
--- OUTSIDE RECORDS SUMMARY | 2022-06-22 11:39 | XMS_ITS | Encounter Summary ---
:1940 Author Organization [facility] Address [address] [place] [address] Care Team Providers Name Role Phone Opal Vazquez M.D. Primary Care Provider Reason for Referral Outpatient (Routine) - Closed Specialty Diagnoses / Procedures Referred By Contact Refer red To Contact Family Medicine Diagnoses Annual Medicare Examination Return Opal Vazquez M.D. [facility] [address] [place] [address] Referral ID Status Reason Start Date Expiration Date Visits Requ ested Visits Authorized [id number] Closed 08/14/2018 08/14/2019 1 1 Scheduling Instructions We will contact once we determine a day in [place]. Patient wants AWV in [place]. 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 Wellness Visit Medicine in [address] [place], [place] [address] [facility] [address] [place], [place] [phone] (Work) [phone] Social History Tobacco Use Types Packs/Day Years Used Date Smoking Tobacco: Former Smokeless Tobacco: Never Alcohol Habits Answer Date Recorded How often [...] 05/13/2021 relatives? How often do you attend gnosticist or yazidism Patient refused 05/13/2021 services? Do you belong to any clubs or organizations such as Patient refused 05/13/2021 gnosticist groups, unions, fraternal or athletic groups, or [...] or slept in a alf (including now)? Sex Assigned at Date Recorded Female 02/25/2018 7:29 PM CDT documented as of this encounter Miscellaneous Notes Telephone Encounter - Addis Dao R.N. - 09/10/2018 9:30 AM CST Called patient to discuss scheduling a Medicare Annual Wellness Visit. Patient has scheduled in [place] for Sep 23 at 11am. 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 - 08/14/2018 3:05 PM CST Called patient to discuss scheduling a Medicare Annual Wellness Visit. Patient interested. Order placed. Patient would like to be seen in [place]. Would like a call once [place] is determined. 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 documented in this encounter Plan of Treatment Scheduled Referrals Name Type Priority Associated Diagnoses Order [facility] Family Medicine Outpatient Referral Routine Annual Medicare Ex pected: nurse visit Examination Return 9 (clinic) (Approximate), Expires: 08/14/2021 documented as of this encounter Visit Diagnoses Diagnosis Annual Medicare Examination Return - Anna birtton documented in this encounter Additional Health Concerns Assessment Noted Time PHQ-9 Depression Total Score: 1 04/08/2015 9:22 AM CDT documented as of this encounter Care Teams Vb Developer Relationship Specialty Start Date End Date Opal Vazquez M.D. PCP - General 01/18/17 07/06/19 documented as of this encounter
--- OUTSIDE RECORDS SUMMARY | 2022-06-22 11:39 | XMS_ITS | Encounter Summary ---
:1940 Author Organization [facility] Address [address] [place] [address] Care Team Providers Name Role Phone Unavailable Primary Care Provider Unavailable Encounter Details Date Type Department Care Team Description 09/15/2016 Hospital Encounter HX NO MAPPING Opal Vazquez M.D. [address] [place] [address] [phone] (Wo rk) Social History Tobacco Use Types Packs/Day Years Used Date Smoking Tobacco: Former Alcohol Habits Answer Date Recorded How often [...] 05/13/2021 relatives? How often do you attend yarsanism or islam Patient refused 05/13/2021 services? Do you belong to any clubs or organizations such as Patient refused 05/13/2021 yarsanism groups, unions, fraternal or athletic groups, or [...] or slept in a fci (including now)? Sex Assigned at Date Recorded Female 02/25/2018 7:29 PM CDT documented as of this encounter Miscellaneous Notes Miscellaneous - Conversion, Historical Provider Ser - 09/15/2016 11:59 PM BOAT OUTFITTER Coding Summary-Paper Based CODING DATE: 09/22/2016 FINAL [facility] STATUS: * Discharged to Home or Self Care PAYOR: Medicare ADMIT DX: REASON FOR VISIT DX: FINAL DX: PRINCIPAL: C44.311 Basal cell carcinoma of skin of nose SECONDARY: PROCEDURES DOCTOR NAME DATE NOTE: The code number assigned matches the documented diagnosis and / or procedure in the patient's chart. However, the narrative phrase printed from the coding software may appear abbreviated, or result in slightly different terminology. Coded By: SOL MARSHALL Date Saved: 09/22/2016 10:34 am Source[facility] Document Id: [id number] documented in this encounter Plan of Treatment Not on filedocumented as of this encounter Visit Diagnoses Not on filedocumented in this encounter Additional Health Concerns Assessment Noted Time PHQ-9 Depression Total Score: 1 04/08/2015 9:22 AM CDT documented as of this encounter
--- OUTSIDE RECORDS SUMMARY | 2022-06-22 11:39 | XMS_ITS | Encounter Summary ---
:1940 Author Organization [facility] Address [address] [place] [address] Care Team Providers Name Role Phone Unavailable Primary Care Provider Unavailable Encounter Details Date Type Department Care Team Description 05/24/2016 Hospital Encounter HX [facility] Lashawn Vazquez M.D. [address] [place], [place] [phone] (Wo rk) Social History Tobacco Use Types Packs/Day Years Used Date Smoking Tobacco: Never Assessed Alcohol Habits Answer Date Recorded How often [...] How often do you attend presybeterian or rastafari Patient refused 05/13/2021 services? Do you belong [...] place to sleep or slept in a group home (including now)? Sex Assigned at Date Recorded Female 02/25/2018 7:29 PM CDT documented as of this encounter Nursing Notes Jeanne Tsang L.P.N. - 06/07/2016 5:00 PM CDT Lab 05-24-16 Result card sent. Electronically Signed By: JEANNE TSANG LPN On: 06/07/2016 05:02 PM Source: [facility] POWERCHART Document Id: [id number] documented in this encounter Plan of Treatment Not on filedocumented as of this encounter Procedures Procedure Name Priority Date/Time Associated Comments Diagnosis LIPID PANEL, S Routine 05/24/2016 7:51 Results fo r this AM CDT procedure are i n the results section. ASPARTATE Routine 05/24/2016 7:51 Results for this AMINOTRANSFERASE (AST), AM CDT proc edure are in S/P the results section. documented in this encounter Results (ABNORMAL) Lipid Panel (05/24/2016 7:51 AM CDT) P athologist Signature Calculated LDL 130 (H) <=129 MGDL POWERCHART Comment: 2014 National Lipid Association recommen dations for LDL-C in adults ages 18 and up: Desirable <100 mg/dL Above desirable 100-129 mg/dL Borderline high 130-159 mg/dL High 160-189 mg/dL Very High 190 mg/dL 2014 National Lipid Association recommen dations for LDL-C in children ages 2 to 17. Acceptable <110 mg/dL Borderline High 110-129mg/dL High 130 mg/dL LDL-C >190mg/dL: The markedly elevated LDL level is suggestive of a genetic condition such as familial hypercholesterolemia(FH) or familial defective apolipoprotein B-100 (FDB). Molecular genetic t est[facility] FH and FDB [facility] FH/ADH Genetic Reflex [place] el (test ADHP). Acquired (non-genetic) causes of markedly increased LDL cholesterol include cholestatic liver disease due to the presence of LpX. If a genetic form of hypercholesterolemia is suspected, family studies including biochemical testing fo r lipids (total cholesterol,triglycerides, LDL cholesterol and HDL cholesterol) are recommended. ??Please contact the laboratory at or the on-line test catalog at [facility] for information about how to order these ilan ts or to speak with a genetic counselor. Further interpretation would require clinical information. Total Cholesterol/HDL Ratio 3.91 PO WERCHART Cholesterol, Total 223 (H) <=199 MGDL POWERCHART Comment: 2014 National Lipid Association recommen dations for Total Cholesterol in adults ages 18 and up: Desirable <200 mg/dL Borderline high 200-239 mg/dL High 240 mg/dL 2014 National Lipid Association recommen dations for Total Cholesterol in children ages 2 to 17. Acceptable <170 mg/dL Borderline High 170-199 mg/dL High 200 mg/dL HX HDL 57 >=50 MGDL POWERCHART Comment: 2014 National Lipid Association recommen dations for HDL-C in adults ages 18 and up: Low <40 mg/dL (Men) Low <50 mg/dL (Women) 2014 National Lipid Association recommen dations for HDL-C in children ages 2 to 17. Low <40 mg/dL Borderline Low 40-45 mg/dL Acceptable >45 mg/dL Triglycerides 179 (H) <=149 MGDL POWERCHART Comment: 2014 National Lipid Association recommen dations for Triglycerides in adults ages 18 and up: Normal <150 mg/dL Borderline High 150-199 mg/dL High 200-499 mg/dL Very High 500 mg/dL 2014 National Lipid Association recommen dations for Triglycerides in children ages 2 to 9. Acceptable <75 mg/dL Borderline High 75-99 mg/dL High 100 mg/dL 2014 National Lipid Association recommen dations for Triglycerides in children ages 10 to 17. Acceptable <90 mg/dL Borderline High 90-129 mg/dL High 130 mg/dL Trigs >400mg/dL: Triglycerides >400 mg/ dL. Calculated LDL cholesterol is not valid. Non-HDL cholesterol may be used for risk assessment when triglycerides are >400mg/dL. HXLDL/HDL 2 POWERCHART Specimen (Source) Anatomical Collection Method Collection Time Re ceived Time Location / / Volume Laterality Blood 05/24/2016 7:51 AM CDT Opal Vazquez M.D. LAB BLOOD ADD-ON Performing Organization Address City/State/ZIP Code Phon e Number POWERCHART AST (Aspartate Aminotransferase) (05/24/2016 7:51 AM CDT) [facility] gist Method Time Signature Aspartate 32 8 - 43 POWERCHART Aminotransferase UNITL (AST), S Specimen (Source) Anatomical Collection Method Collection Time Re ceived Time Location / / Volume Laterality Blood 05/24/2016 7:51 AM CDT Opal Vazquez M.D. LAB BLOOD ADD-ON Performing Organization Address City/State/ZIP Code Phon e Number POWERCHART documented in this encounter Visit Diagnoses Not on filedocumented in this encounter Additional Health Concerns Assessment Noted Time PHQ-9 Depression Total Score: 1 04/08/2015 9:22 AM CDT documented as of this encounter
--- OUTSIDE RECORDS SUMMARY | 2022-06-22 11:39 | XMS_ITS | Encounter Summary ---
:1940 Author Organization [facility] Address [address] [place] [address] Care Team Providers Name Role Phone Opal Vazquez M.D. Primary Care Provider Encounter Details Date Type Department Care Team Description 03/09/2017 Hospital Encounter HX [facility] Bernadine Vazquez M.D. [address] [place] [phone] (Wo rk) Social History Tobacco [...] 05/13/2021 relatives? How often do you attend buddhist or buddhism Patient refused 05/13/2021 services? Do you belong to any clubs or organizations such as Patient refused 05/13/2021 buddhist groups, unions, fraternal or athletic groups, or [...] Sig Dispensed Refills Start Date End Date simvastatin (ZOCOR) 20 mg Take 1 tablet by 0 /04/201710/02/2019 tablet mouth daily. documented as of this encounter Plan of Treatment Not on filedocumented as of this encounter Procedures Procedure Name Priority Date/Time Associated Diagnosis Comme nts BI BREAST SCREENING Routine 03/09/2017 10:13 AM R esults for this BILATERAL CDT procedure are i n the results section. documented in this encounter Results BI Breast Screening Bilateral (03/09/2017 10:13 AM CDT) Anatomical Region Laterality Modality Breast Bilateral Mammography Specimen (Source) Anatomical Collection Method Collection Time Re ceived Time Location / / Volume Laterality 03/09/2017 10:13 AM CDT Addenda Addendum by ProviderNeil M.D. o n 03/09/2017 10:13 AM CDT RAD^^^OW [place] Mammo Screening w ??CADD 03/09/2017 10:13:07 [place] Mammo Screening w ??CADD Addendum by ProviderNeil M.D. o n 03/09/2017 10:13 AM CDT RAD^^^OW [place] Mammo Screening w ??CADD 03/09/2017 10:13:07 [place] Mammo Screening w ??CADD Impressions 03/09/2017 2:27 PM CDT No mammographic findings for malignancy in either breast. Recommendations: ??I recommend a follow- up mammogram in 1 year, self breast exams at least once per month and clinical breast exam at least once per year. ??Of note, benign finding s should not deter biopsy in the setting of a palpable abnormality. ? ?The false negative rate of mammography is approximately 10%. CODE: 1-NEGATIVE Appropriate letter sent. Full field digital mammography is used a nd Computer Aided Detection is performed on the digital mammogram image s. Narrative 03/09/2017 2:27 PM CDT EXAM: [place] Mammo Screening w/ CADD INDICATION: screen COMPARISON: Baseline FINDINGS: Heterogeneously dense breast p arenchyma bilaterally. Breast density diminishes mammographic sensitiv ity for detection of malignancy. Procedure Note David Morrison M.D. / Provider, Danyel anne M.D. - 05/10/2017 EXAM: [place] Mammo Screening w/ CADD INDICATION: screen COMPARISON: Baseline FINDINGS: Heterogeneously dense breast p arenchyma bilaterally. Breast density diminishes mammographic sensitiv ity for detection of malignancy. IMPRESSION: No mammographic findings for malignancy in either breast. Recommendations: I recommend a follow-up mammogram in 1 year, self breast exams at least once per month and clinical breast exam at least once per year. Of note, benign findings should not deter biopsy in the setting of a palpable abnormality. T he false negative rate of mammography is approximately 10%. CODE: 1-NEGATIVE Appropriate letter sent. Full field digital mammography is used a nd Computer Aided Detection is performed on the digital mammogram image s. Tonia Coleman R.T.(R), R.T.(R)(M) IMG BI PROCEDUR ES documented in this encounter Visit Diagnoses Not on filedocumented in this encounter Additional Health Concerns Assessment Noted Time PHQ-9 Depression Total Score: 1 04/08/2015 9:22 AM CDT documented as of this encounter Care Teams Pointer Helper Relationship Specialty Start Date End Date Opal Vazquez M.D. PCP - General 01/18/17 07/06/19 documented as of this encounter
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
--- OUTSIDE RECORDS SUMMARY | 2022-06-22 11:39 | XMS_ITS | Encounter Summary ---
:1940 Author Organization [facility] Address [address] [place] [address] Care Team Providers Name Role Phone Unavailable Primary Care Provider Unavailable Encounter Details Date Type Department Care Team Description 10/12/2016 Hospital Encounter HX RST DERM SURG OP [facility] Mateusz Harrell M.D., M.S. [address] [place] [address] (Wo rk) Social History Tobacco Use Types [...] How often do you attend denominational or shinto Patient refused 05/13/2021 services? Do [...] or slept in a longterm (including now)? Sex Assigned at Date Recorded Female 02/25/2018 7:29 PM CDT documented as of this encounter Last Filed Vital Signs Vital Sign Reading Time Taken Comments Blood Pressure 115/72 10/12/2016 7:40 AM [place] Vital sign result from Clinical Notes. Pulse 67 10/12/2016 7:40 AM [place] [place] Vital sign result from Clinical Notes. Temperature - - Respiratory Rate - - Oxygen Saturation - - Inhaled Oxygen Concentration - - Weight - - Height - - Body Mass Index - - documented in this encounter Medications at Time of Discharge Medication Sig Dispensed Refills Start Date End Date simvastatin (ZOCOR) 20 mg Take 1 tablet by 0 04/201710/02/2019 tablet mouth daily. documented as of this encounter Plan of Treatment Not on filedocumented as of this encounter Visit Diagnoses Not on filedocumented in this encounter Additional Health Concerns Assessment Noted Time PHQ-9 Depression Total Score: 1 04/08/2015 9:22 AM CDT documented as of this encounter
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
--- OUTSIDE RECORDS SUMMARY | 2022-06-22 11:39 | XMS_ITS | Encounter Summary ---
:1940 Author Organization [facility] Address [address] [place] [address] Care Team Providers Name Role Phone Opal Vazquez M.D. Primary Care Provider Encounter Details Date Type Department Care Team Description 03/26/2018 Abstract Department of Family Medicine, Provider, Historical [facility], in [place], [place] [address] [place] [address] Social History Tobacco Use Types Packs/Day Years [...] 05/13/2021 relatives? How often do you attend caodaism or oriental orthodox Patient refused 05/13/2021 services? Do you belong to any clubs or organizations such as Patient refused 05/13/2021 caodaism groups, unions, fraternal or athletic groups, or [...] or slept in a mcfp (including now)? Sex Assigned at Date Recorded Female 02/25/2018 7:29 PM CDT documented as of this encounter Plan of Treatment Not on filedocumented as of this encounter Visit Diagnoses Not on filedocumented in this encounter Additional Health Concerns Assessment Noted Time PHQ-9 Depression Total Score: 1 04/08/2015 9:22 AM CDT documented as of this encounter Care Teams Mobile Designer Relationship Specialty Start Date End Date Opal Vazquez M.D. PCP - General 01/18/17 07/06/19 documented as of this encounter
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
--- OUTSIDE RECORDS SUMMARY | 2022-06-22 11:39 | XMS_ITS | Encounter Summary ---
:1940 Author Organization [facility] Address [address] [place] [address] Care Team Providers Name Role Phone Opal Vazquez M.D. Primary Care Provider Encounter Details Date Type Department Care Team Description 10/25/2018 Hospital Encounter Department of Opal Vazquez Gastromeño sophageal Reflux Disease; Laboratory Elmer Rojo Overweight Body Mass Index 25-29.9 Adult ; Medicine in [address] Hyperlipidemia Mixed [facility] [id number] [address] [facility] [phone] [place], [place] (Work) [phone] Social History Tobacco Use Types Packs/Day [...] 05/13/2021 relatives? How often do you attend rastafarian or holiness Patient refused 05/13/2021 services? Do you belong to any clubs or organizations such as Patient refused 05/13/2021 rastafarian groups, unions, fraternal or athletic groups, or [...] or slept in a correction (including now)? Sex Assigned at Date Recorded [...] (AMOXIL) 500 0 10/24/2018 10/02/2019 mg capsule omeprazole (PriLOSEC) 20 Take 20 mg by mouth 0 10/31/2018 mg capsule every morning before breakfast. A few times per week simvastatin (ZOCOR) 20 mg Take 1 tablet by 0 04/201710/02/2019 tablet mouth daily. documented as of this encounter Plan of Treatment Not on filedocumented as of this encounter Procedures Procedure Name Priority Date/Time Associated Diagnosis Comme nts LIPID PANEL, S Routine 10/25/2018 11:01 Hyperlipidemia Mixed R esults for AM CDT this procedure are in the results section. CBC WITH DIFFERENTIAL, Routine 10/25/2018 11:01 Gastroesophage al Results for B AM CDT Reflux Disease this procedur e are in the results section. ASPARTATE Routine 10/25/2018 11:01 Hyperlipidemia Mixed Results for AMINOTRANSFERASE (AST), AM CDT Gastroesophageal this procedure S/P Reflux Disease are in the results section. BASIC METABOLIC PANEL, Routine 10/25/2018 11:01 Overweight Bod y Mass Results for S/P AM CDT Index 25-29.9 Ad ult this procedure Gastroesophageal are in the Reflux Disease results section. documented in this encounter Results (ABNORMAL) Lipid Panel (10/25/2018 11:01 AM CDT) P athologist Signature Cholesterol, 282 (H) mg/dL 10/25/2018 [facility] Total 4:32 PM CDT [facility] Comment: ----REFERENCE VALUE---- Desirable: < 200 Borderline high: 200 - 239 High: > or = 240 Triglycerides 200 (H) mg/dL 10/25/2018 4:32 PM CDT [facility] Comment: ----REFERENCE VALUE---- Normal: <150 Borderline high: 150-199 High: 200-499 Very high: > or =500 Cholesterol, HDL, S 51 >=50 mg/dL 10/25/2018 4:32 PM CDT [facility] Calculated LDL 191 (H) mg/dL 10/25/2018 4:32 PM CDT [facility] Comment: The markedly elevated LDL level is sugge stive of a genetic condition such as familial hypercholesterolemia (FH) or familial defective apolipoprotei n B-100 (FDB). Molecular genetic testing for FH and FDB is available through [facility]: FH/ADH Genetic Reflex Panel (test ADHP). Acquired (non-genetic ) causes of markedly increased LDL cholesterol include choles tatic liver disease due to the presence of LpX. If a genetic form of hypercholesterolemia is suspected, famil y studies including biochemical testing for lipids (total cholesterol, triglycerides, LDL cholesterol and HDL c holesterol) are recommended. ??Please contact the anastacia smith at or the on-line test ko jerome at [employer] for informati on about how to order these tests or to speak with a [facility] counselor. Further interpretation would require cli nical information. ----REFERENCE VALUE---- Desirable: <100 Above Desirable: 100-129 Borderline high: 130-159 High: 160-189 Very high: > or =190 Cholesterol, Non-HDL, 231 (H) mg/dL 10/25/2018 4:32 PM CDT [facility] Comment: ----REFERENCE VALUE---- Desirable: <130 Above Desirable: 130-159 Borderline high: 160-189 High: 190-219 Very high: > or =220 Specimen Anatomical Collection Method Collection Time Receive d Time (Source) Location / / Volume Laterality Blood (Blood, 10/25/2018 11:01 10/25/2018 3:26 Venous) AM CDT PM CDT Opal Vazquez M.D. LAB BLOOD ADD-ON Performing Organization Address City/[facility]/ZIP Code Phon e Number [facility] [phone], [place] [address] LAB AST (Aspartate Aminotransferase) (10/25/2018 11:01 AM CDT) Patholo gist Method Time Signature Aspartate 23 8 - 43 10/25/2018 [facility] ER Aminotransferase U/L 4:32 PM CDT [facility] Specimen Anatomical Collection Method Collection Time Receive d Time (Source) Location / / Volume Laterality Blood (Blood, 10/25/2018 11:01 10/25/2018 3:26 Venous) AM CDT PM CDT Opal Vazquez M.D. LAB BLOOD ADD-ON Performing Organization Address City/[facility]/ZIP [facility] Phon e Number [facility] [phone], [place] [address] LAB (ABNORMAL) BMP (Basic Metabolic Panel) (10/25/2018 11:01 AM CDT) P athologist Signature Potassium, S 4.5 3.6 - 5.2 10/25/2018 [facility] mmol/L 4:32 PM CDT [facility] Sodium, S 143 135 - 145 10/25/2018 [facility] mmol/L 4:32 PM CDT [facility] Chloride, S 105 98 - 107 10/25/2018 [facility] mmol/L 4:32 PM CDT [facility] Bicarbonate, S 26 22 - 29 10/25/2018 [facility] mmol/L 4:32 PM CDT [facility] Anion Gap 12 7 - 15 10/25/2018 [facility] 4:32 PM T [facility] BUN (Blood Urea 11 6 - 21 10/25/2018 [facility] Nitrogen), S mg/dL 4:32 PM T [facility] Creatinine 0.77 0.59 - 10/25/2018 [facility] ER 1.04 mg/dL 4:32 PM [facility] eGFR-Non 73 >=60 10/25/2018 [facility] Black/ mL/min/BSA 4:32 PM [facility] [place] [facility] Comment: ----ADDITIONAL INFORMATION---- Estimated GFR calculated using the 2009 CKD_EPI creatinine equation. eGFR-Black/ 84 >=60 mL/min/BSA 2018 4:32 PM [facility] [place] [facility] Comment: ----ADDITIONAL INFORMATION---- Estimated GFR calculated using the 2009 CKD_EPI creatinine equation. Calcium, Total, S 10.5 (H) 8.8 - 10.2 mg/dL 10/25/2018 4 :32 PM [facility] Glucose, S 103 70 - 140 mg/dL 10/25/2018 4:32 PM [facility] [place] [facility] Specimen Anatomical Collection Method Collection Time Receive d Time (Source) Location / / Volume Laterality Blood (Blood, 10/25/2018 11:01 10/25/2018 3:26 Venous) AM CDT PM CDT Opal Vazquez M.D. LAB BLOOD ADD-ON Performing Organization Address City/State/ZIP Code Phon e Number [facility] [address] [place] [address] LAB CBC with Differential, Blood (10/25/2018 11:01 AM CDT) P athologist Signature Hemoglobin 14.7 11.6 - 10/25/2018 [facility] ER 15.0 g/dL 11:17 AM T [facility] Hematocrit 42.8 35.5 - 10/25/2018 [facility] 44.9 % 11:17 AM T [facility] [employer] [facility] Erythrocytes 4.77 3.92 - 10/25/2018 [facility] ER 5.13 11:17 AM CDT [facility] x[facility](12)/L [facility] [employer] MCV 89.7 78.2 - 10/25/2018 [facility] 97.9 fL 11:17 AM CDT [employer] [facility] RBC Distrib Width 12.8 12.2 - 10/25/2018 [facility] 16.1 % 11:17 AM CDT [facility] Platelet Count 236 157 - 371 10/25/2018 [facility] ER x10(9)/L 11:17 AM CDT [facility] Leukocytes 4.9 3.4 - 9.6 10/25/2018 [facility] ER x10(9)/L 11:17 AM CDT [facility] Neutrophils 2.76 1.56 - 10/25/2018 [facility] ER 6.45 11:17 AM CDT [facility] x10(9)/L [facility]- [facility] Lymphocytes 1.83 0.95 - 10/25/2018 [facility] ER 3.07 11:17 AM CDT [facility] x[facility](9)/[facility] Monocytes 0.30 0.26 - 10/25/2018 [facility] 0.81 11:17 AM CDT [facility] x10(9)/L [facility]- [facility] Eosinophils 0.04 0.03 - 10/25/2018 [facility] 0.48 11:17 AM CDT [facility] x[facility](9)/[facility]- [facility] Basophils 0.01 0.01 - 10/25/2018 [facility] 0.08 11:17 AM CDT [facility] x10(9)/L [facility]- [facility] Specimen Anatomical Collection Method Collection Time Receive d Time (Source) Location / / Volume Laterality Blood (Blood, 10/25/2018 11:01 10/25/2018 Venous) AM CDT 11:17 AM CDT Opal Vazquez M.D. LAB BLOOD ADD-ON Performing Organization Address City/State/ZIP Code Phon e Number [facility] [employer] [address] [place] [address] LAB documented in this encounter Visit Diagnoses Diagnosis Gastroesophageal Reflux Disease Overweight Body Mass Index 25-29.9 Adult Hyperlipidemia Mixed documented in this encounter Care Teams Cna Hha Relationship Specialty Start Date End Date Opal Vazquez M.D. PCP - General 01/18/17 07/06/19 documented as of this encounter
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
--- OUTSIDE RECORDS SUMMARY | 2022-06-22 11:39 | XMS_ITS | Encounter Summary ---
:1940 Author Organization [facility] Address [address] [place] [address] Care Team Providers Name Role Phone Opal Vazquez M.D. Primary Care Provider Encounter Details Date Type Department Care Team Description 10/25/2018 Orders Only Department of Family [facility] Body Mass Index 25-29.9 Adult (Primary Dx); Medicine, [place] Hyperlipidemia Mixed; Clinic, in [address] [facility] Gastroesophageal Reflux Disease [place], [place] [address] [facility] [id number] [place] [address] [phone] [id number] (Work) [phone] Social History Tobacco Use Types Packs/Day Years [...] How often do you attend rastafari or adventism Patient refused 05/13/2021 services? Do you belong [...] place to sleep or slept in a usp (including now)? Sex Assigned at Date Recorded Female 02/25/2018 7:29 PM CDT documented as of this encounter Plan of Treatment Not on filedocumented as of this encounter Results (ABNORMAL) Lipid Panel (10/25/2018 11:01 AM CDT) athologist Signature Cholesterol, 282 (H) mg/dL 10/25/2018 [facility] Total 4:32 PM CDT [facility] Comment: ----REFERENCE VALUE---- Desirable: < 200 Borderline high: 200 - 239 High: > or = 240 Triglycerides 200 (H) mg/dL 10/25/2018 4:[address] [facility] Comment: ----REFERENCE VALUE---- Normal: <150 Borderline high: 150-199 High: 200-499 Very high: > or =500 Cholesterol, HDL, S 51 >=50 mg/dL 10/25/2018 4:32 PM CDT [facility] Calculated LDL 191 (H) mg/dL 10/25/2018 4:32 PM CDT [facility]- [facility] Comment: The markedly elevated LDL level is sugge stive of a genetic condition such as familial hypercholesterolemia (FH) or familial defective apolipoprotei n B-100 (FDB). Molecular genetic testing for FH and FDB is available through [facility]: FH/ADH Genetic Reflex Panel (test ADHP). [...] or the on-line test ko jerome at Register My Info for informati on about how to order these tests or to speak with a [facility] counselor. Further interpretation would require cli nical information. ----REFERENCE VALUE---- Desirable: <100 Above Desirable: 100-129 Borderline high: 130-159 High: 160-189 Very high: > or =190 Cholesterol, Non-HDL, 231 (H) mg/dL 10/25/2018 4:[address] [facility] [place] [facility]AY [place]ont Comment: ----REFERENCE VALUE---- Desirable: <130 Above Desirable: 130-159 Borderline high: 160-189 High: 190-219 Very high: > or =220 Specimen Anatomical Collection Method Collection Time Receive d Time (Source) Location / / Volume Laterality Blood (Blood, 10/25/2018 11:01 10/25/2018 3:26 Venous) AM CDT PM CDT Opal Vazquez M.D. LAB BLOOD ADD-ON Performing Organization Address City/State/[facility] Code Phon e Number [facility] [address] [place] [address] LAB AST (Aspartate Aminotransferase) (10/25/2018 11:01 AM CDT) [facility] gist Method Time Signature Aspartate 23 8 - 43 10/25/2018 [facility] Aminotransferase U/L 4:32 PM CDT [employer] (AST)[employer] [facility] [place] LAB Specimen Anatomical Collection Method Collection Time Receive d Time (Source) Location / / Volume Laterality Blood (Blood, 10/25/2018 11:01 10/25/2018 3:26 Venous) AM CDT PM CDT Opal Vazquez M.D. LAB BLOOD ADD-ON Performing Organization Address City/[facility] Phon e Number [facility] [address] [place] [address] LAB (ABNORMAL) BMP (Basic Metabolic Panel) (10/25/2018 11:01 AM CDT) P athologist Signature Potassium, S 4.5 3.6 - 5.2 10/25/2018 [facility] mmol/L 4:32 PM [facility] Sodium, S 143 135 - 145 10/25/2018 [facility] mmol/L 4:32 PM [facility] Chloride, S 105 98 - 107 10/25/2018 [facility] mmol/L 4:32 PM [facility] Bicarbonate, S 26 22 - 29 10/25/2018 [facility] mmol/L 4:32 PM [facility] Anion Gap 12 7 - 15 10/25/2018 [facility] 4:32 PM [facility] BUN (Blood Urea 11 6 - 21 10/25/2018 [facility] Nitrogen), S mg/dL 4:32 PM [facility] Creatinine 0.77 0.59 - 10/25/2018 [facility] 1.04 mg/dL 4:32 PM [facility] eGFR-Non 73 >=60 10/25/2018 [facility] Black/ mL/min/BSA 4:32 PM [facility] - [employer] [facility] Comment: ----ADDITIONAL INFORMATION---- Estimated GFR calculated using the 2009 CKD_EPI creatinine equation. eGFR-Black/ 84 >=60 mL/min/BSA 2018 4:32 PM [facility] Comment: ----ADDITIONAL INFORMATION---- Estimated GFR calculated using the 2009 CKD_EPI creatinine equation. Calcium, Total, S 10.5 (H) 8.8 - 10.2 mg/dL 10/25/2018 4 :32 PM [facility] [place] [facility] Glucose, S 103 70 - 140 mg/dL 10/25/2018 4:32 PM [facility] Specimen Anatomical Collection Method Collection Time Receive d Time (Source) Location / / Volume Laterality Blood (Blood, 10/25/2018 11:01 10/25/2018 3:26 Venous) AM CDT PM CDT Opal Vazquez M.D. LAB BLOOD ADD-ON Performing Organization Address City/State/ZIP Code Phon e Number [facility] [place] [address] [place] [address] LAB CBC with Differential, Blood (10/25/2018 11:01 AM CDT) P athologist Signature Hemoglobin 14.7 11.6 - 10/25/2018 [facility] 15.0 g/dL 11:17 AM CDT [facility]- [facility] Hematocrit 42.8 35.5 - 10/25/2018 [facility] 44.9 % 11:17 AM CDT [facility]- [facility] LAB Erythrocytes 4.77 3.92 - 10/25/2018 [facility] 5.13 11:17 AM CDT [facility] x[facility](12)/L SYSTEM- [facility] MCV 89.7 78.2 - 10/25/2018 [facility] 97.9 fL 11:17 AM CDT [facility] RBC Distrib Width 12.8 12.2 - 10/25/2018 [facility] 16.1 % 11:17 AM CDT [facility]- [facility] Platelet Count 236 157 - 371 10/25/2018 [facility] x10(9)/L 11:17 AM CDT [facility] Leukocytes 4.9 3.4 - 9.6 10/25/2018 [facility] x10(9)/L 11:17 AM CDT [facility] Neutrophils 2.76 1.56 - 10/25/2018 [facility] 6.45 11:17 AM CDT [facility](9)/[facility] SYSTEM- [facility] Lymphocytes 1.83 0.95 - 10/25/2018 [facility] 3.07 11:17 AM CDT [facility]- [place] [facility] Monocytes 0.30 0.26 - 10/25/2018 [facility] 0.81 11:17 AM CDT [facility](9)/L [facility]- [place] [facility] Eosinophils 0.04 0.03 - 10/25/2018 [facility] 0.48 11:17 AM CDT [facility](9[facility]- [place] [facility] Basophils 0.01 0.01 - 10/25/2018 [facility] 0.08 11:17 AM CDT [facility] x10(9)/L SYSTEM- [employer] LAB Specimen Anatomical Collection Method Collection Time Receive d Time (Source) Location / / Volume Laterality Blood (Blood, 10/25/2018 11:01 10/25/2018 Venous) AM CDT 11:17 AM CDT Opal Vazquez M.D. LAB BLOOD ADD-ON Performing Organization Address City/State/ZIP Code Phon e Number [facility] [address] [place] [address] LAB documented in this encounter Visit Diagnoses Diagnosis Overweight Body Mass Index 25-29.9 Adult - Primary Hyperlipidemia Mixed Gastroesophageal Reflux Disease documented in this encounter Care Teams Zinc Plater Relationship Specialty Start Date End Date Opal Vazquez M.D. PCP - General 01/18/17 07/06/19 documented as of this encounter
--- OUTSIDE RECORDS SUMMARY | 2022-06-22 11:39 | XMS_ITS | Encounter Summary ---
:1940 Author Organization [facility] Address [address] [place] [address] Care Team Providers Name Role Phone Unavailable Primary Care Provider Unavailable Encounter Details Date Type Department Care Team Description 01/19/2016 Hospital Encounter HX [facility] Lashawn Vazquez M.D. [address] [place], [place] [address] (Wo rk) Social History [...] 05/13/2021 relatives? How often do you attend nondenominational or episcopalian Patient refused 05/13/2021 services? Do you belong to any clubs or organizations such as Patient refused 05/13/2021 nondenominational groups, unions, fraternal or athletic groups, or [...] place to sleep or slept in a residential (including now)? Sex Assigned at Date Recorded Female 02/25/2018 7:29 PM CDT documented as of this encounter Plan of Treatment Not on filedocumented as of this encounter Procedures Procedure Name Priority Date/Time Associated Comments Diagnosis LIPID PANEL, S Routine 01/19/2016 9:13 Results fo r this AM CDT procedure are i n the results section. ASPARTATE Routine 01/19/2016 9:13 Results for this AMINOTRANSFERASE (AST), AM CDT proc edure are in S/P the results section. documented in this encounter Results (ABNORMAL) Lipid Panel (01/19/2016 9:13 AM CDT) P athologist Signature Calculated LDL 178 (H) <=129 MGDL POWERCHART Comment: 2013 National Lipid Association recommen dations for LDL-C [...] esting for FH and FDB is available [facility]ou [facility]: FH/ADH Genetic Reflex Collado el (test ADHP). Acquired (non-genetic) causes of markedly increased LDL cholesterol include cholestatic liver disease due to the presence of LpX. If a genetic form of hypercholesterolemia is suspected, family studies including biochemical testing fo r lipids (total cholesterol,triglycerides, LDL cholesterol and HDL cholesterol) are recommended. ??Please contact the laboratory at or the on-line test catalog at Delivery Agent for information about how to order these ilan ts or to speak with a genetic counselor. Further interpretation would require clinical information. Total Cholesterol/HDL Ratio 6.20 PO WERCHART Cholesterol, Total 285 (H) <=199 MGDL POWERCHART Comment: 2013 National Lipid Association recommen dations for Total Cholesterol in adults ages 18 and up: Desirable <200 mg/dL Borderline high 200-239 mg/dL High 240 mg/dL 2014 National Lipid Association recommen dations for Total Cholesterol in children ages 2 to 17. Acceptable <170 mg/dL Borderline High 170-199 mg/dL High 200 mg/dL HX HDL 46 (L) >=50 MGDL POWERCHART Comment: 2013 National Lipid Association recommen dations for HDL-C in adults ages 18 and up: Low <40 mg/dL (Men) Low <50 mg/dL (Women) 2014 National Lipid Association recommen dations for HDL-C in children ages 2 to 17. Low <40 mg/dL Borderline Low 40-45 mg/dL Acceptable >45 mg/dL Triglycerides 306 (H) <=149 MGDL POWERCHART Comment: 2013 National Lipid Association recommen dations for Triglycerides [...] risk assessment when triglycerides are >400mg/dL. HXLDL/HDL 4 POWERCHART Specimen (Source) Anatomical Collection Method Collection Time Re ceived Time Location / / Volume Laterality Blood 01/19/2016 9:13 AM CDT Opal Vazquez M.D. LAB BLOOD ADD-ON Performing Organization Address City/State/ZIP Code Phon e Number POWERCHART AST (Aspartate Aminotransferase) (01/19/2016 9:13 AM CDT) [facility] gist Method Time Signature Aspartate 23 8 - 43 POWERCHART Aminotransferase UNITL (AST), S Specimen (Source) Anatomical Collection Method Collection Time Re ceived Time Location / / Volume Laterality Blood 01/19/2016 9:13 AM CDT Opal Vazquez M.D. LAB BLOOD ADD-ON Performing Organization Address City/State/ZIP Code Phon e Number POWERCHART documented in this encounter Visit Diagnoses Not on filedocumented in this encounter Additional Health Concerns Assessment Noted Time PHQ-9 Depression Total Score: 1 04/08/2015 9:22 AM CDT documented as of this encounter
--- OUTSIDE RECORDS SUMMARY | 2022-06-22 11:39 | XMS_ITS | Encounter Summary ---
:1940 Author Organization [facility] Address [address] [place] [address] Care Team Providers Name Role Phone Opal Vazquez M.D. Primary Care Provider Encounter Details Date Type Department Care Team Description 03/08/2018 Hospital Encounter Department of Opal Vazquez Gastromeño sophageal Reflux Disease; Radiology in [place] Hyperlipidemia Mixed; [place], [address] Primary Osteoarthritis Multiple Sites; [place], [place] Preoperative Examination Car diovascular; [address] [address] Preoperative Examination Respiratory [place], [place] [phone] (Work) [phone] Social History Tobacco Use Types Packs/Day Years [...] How often do you attend zoroastrianism or synagogue Patient refused 05/13/2021 services? Do you belong [...] Generally 1 dose on a rare basis omeprazole (PriLOSEC) 20 Take 20 mg by mouth 0 10/31/2018 mg capsule every morning before breakfast. A few times per week simvastatin (ZOCOR) 20 mg Take 1 tablet by 0 04/201710/02/2019 tablet mouth daily. documented as of this encounter Plan of Treatment Not on filedocumented as of this encounter Procedures Procedure Name Priority Date/Time Associated Diagnosis Comme nts DX CHEST AP OR RAD - Routine 03/08/2018 Gastroesophageal Results for PA AND LATERAL 2 (most inpatients 12:10 PM CDT Reflux Disease this procedure VIEWS and all Hyperlipidemia M ixed are in the outpatients) Primary Osteoarthritis resul ts Multiple Sites section. Preoperative Examination Cardiovascular Preoperative Examination Respiratory documented in this encounter Results DX Chest AP or PA and Lateral 2 Views (03/08/2018 12:10 PM CDT) Anatomical Region Laterality Modality Chest, Thoracic RST LOS N/A Computed Radiogr aphy Specimen (Source) Anatomical Collection Method Collection Time Re ceived Time Location / / Volume Laterality 03/08/2018 12:48 PM CDT Impressions 03/08/2018 12:49 PM CDT IMPRESSION: Negative chest Narrative 03/08/2018 12:49 PM CDT EXAM: DX CHEST AP OR PA AND LATERAL 2 VIEWS COMPARISON: March 19, 2015. FINDINGS: Normal cardiac silhouette. No focal areas of consolidation. No pneumothorax. Chest otherwise negative for acute findi ngs. Procedure Note David Morrison M.D. - 03/08/2018Forma tting of this note might be different from the original. EXAM: DX CHEST AP OR PA AND LATERAL 2 EWS COMPARISON: March 19, 2015. FINDINGS: Normal cardiac silhouette. No focal areas of consolidation. No pneumothorax. Chest otherwise negative for acute findi ngs. IMPRESSION: Negative chest Opal Vazquez M.D. IMG DIAGNOSTIC IMAGING PAT CARBALLO documented in this encounter Visit Diagnoses Diagnosis Gastroesophageal Reflux Disease Hyperlipidemia Mixed Primary Osteoarthritis Multiple Sites Preoperative Examination Cardiovascular Preoperative Examination Respiratory documented in this encounter Additional Health Concerns Assessment Noted Time PHQ-9 Depression Total Score: 1 04/08/2015 9:22 AM CDT documented as of this encounter Care Teams Exterior Designer Relationship Specialty Start Date End Date Opal Vazquez M.D. PCP - General 01/18/17 07/06/19 documented as of this encounter
--- OUTSIDE RECORDS SUMMARY | 2022-06-22 11:39 | XMS_ITS | Encounter Summary ---
:1940 Author Organization [facility] Address [address] [place] [address] Care Team Providers Name Role Phone Opal Vazquez M.D. Primary Care Provider Reason for Visit Reason Comments Medication Visit Appointment Request (Routine) - Closed Specialty Diagnoses / Procedures Referred By Contact Refer red To Contact Family Medicine Referral ID Status Reason Start Date Expiration Date Visits Requ ested Visits Authorized [id number] Closed 09/23/2018 09/23/2019 1 1 Encounter Details Date Type Department Care Team Description 10/25/2018 Office Visit Department of Family Opal Vazquez, Brianna erlipidemia Mixed (Primary Dx); MedicineCortes M.D. Overweight Body Mass Index 25-29.9 Adult ; Clinic, in [facility] [address] Smoking Tobacco Use Personal History; [place], [place] Primary Osteoarthritis Multi ple Sites; [address] [address] Gastroesophageal Reflux Disease Without Esophagitis; [place], [place] [phone] Abnormal Findi ng Nonspecific [id number] (Work) [phone] Social History Tobacco Use Types Packs/Day Years [...] How often do you attend synagogue or anabaptism Patient refused 05/13/2021 services? Do you belong to any clubs or organizations such as Patient refused 05/13/2021 synagogue groups, unions, fraNanjing [employer] or athletic groups, or school groups? 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 - 10/25/2018 10:45 AM CDT CHIEF COMPLAINT/REASON FOR VISIT Medication review HISTORY OF PRESENT ILLNESS This 78-year old female presents to clinic secondary to medication review. She is fasting today. Sheis on a planned weight loss program which includes eating more healthy foods and exercising. It has been successful. She is fasting today. She is in process of having an upper plate and is having her teeth removed today. She wears glasses and her last ophthalmic exam was September 2018. She is having no palpitations. She is having no shortness of breath. She has a daily bowel regimen. She had her annual wellness exam with staff trainer 09/23/2018. She is taking her medications as prescribed. EMR reviewed. CURRENT MEDICATIONS Current Outpatient Prescriptions: ??? acetaminophen (TYLENOL) 325 mg tablet, Take 325 mg by mouth every 4 (four) hours as needed for pain. Generally 1 dose on a rare basis, Disp: , Rfl: ??? amoxicillin (AMOXIL) 500 mg capsule, , Disp: , Rfl: ??? omeprazole (PriLOSEC) 20 mg capsule, Take 20 mg by mouth every morning before breakfast. A few times per week, Disp: , Rfl: ??? simvastatin (ZOCOR) 20 mg tablet, Take 1 tablet by mouth daily., Disp: , Rfl: Allergies Allergen Reactions ??? Latex Other (see comments) Only reacts to powdered latex gloves REVIEW OF SYSTEMS Negative review of major organ systems apart from that noted in the HPI and past medical surgical history. Past Medical History: Diagnosis Date ??? Dermatitis [...] VEIN STRIPPING N/A 04/22/2008 Varicose vein stripping PREVENTIVE SERVICES Tobacco: Quit in 1977. Mammogram: 2001 declines. Pap smear: Nonapplicable secondary to stated age. Chlamydia: ??Not applicable secondary to stated age. Colon screen: FIT cards positive 03/14/2017 with no plans for follow-up. ?? Depression: No. ??PHQ-9 score 0 at her most recent annual Medicare exam. Asthma: No. Lipids: 05/24/2016. Boostrix: ??03/09/2017. Pneumovax 03/12/2008. Influenza: 05/20/2018. DEXA scan: Nonapplicable secondary to stated. Prevnar: 03/19/2015. SOCIAL HISTORY Alcohol 1-3 times per month Caffeine decaf coffee 2 cups per day with a soda twice per week Family History Problem Relation Age of Onset [...] Daughter ??? Hypertension Daughter ??? Cancer Daughter Vitals: 10/25/18 1030 BP: 104/70 Patient Position: Sitting Pulse: 88 Temp: 36 ??C Resp: 16 Weight: 70.2 kg TempSrc: Temporal PHYSICAL EXAM General: Neatly dressed well groomed. HEENT: PERRL. EOMs are full. Ears: TMs are forrester, good visualization of landmarks. Nose: Mucosal membranes pink and moist. Oral: No exudates. Teeth in good condition. No pharyngeal erythema. Neck: Rangeof motion consistent with patient's stated age body habitus. Trachea midline. Lymph nodes: No cervical adenopathy. Thyroid: No thyroid masses, tenderness or enlargement. Heart: Regular rate and rhythm. No clicks, rubs or murmurs. Lungs: Clear to auscultation. No palpable chest wall masses. Abdomen: Soft, nontender, bowel sounds present, no organomegaly. Musculoskeletal: Obvious degenerative changes of major and minor joints ASSESSMENT/PLAN 1. Mixed hyperlipidemia with evaluation in process 2. Overweight with some planned weight loss 3. Positive FIT testing from 03/2017 with evaluation in process 4. GERD without esophagitis currently clinically stable with evaluation in process 5. Primary osteoarthritis multiple sites slowly progressive 6. Personal history of tobacco use currently in remission Supportive measures discussed in detail. Will check labs with a CBC, basic metabolic profile, and lipid profile following up accordingly. Will send letter advising patient to consider colonoscopy aftera review of records reveals a positive FIT test in March 2017. Risks and benefits of medications discussed. All questions answered. Signs and symptoms to lead to emergent evaluation are reviewed. See the medication reconciliation and preventive services. She will consider her options. Spent 15 of the25 minute visit in discussion. documented in this encounter Plan of Treatment Not on filedocumented as of this encounter Visit Diagnoses Diagnosis Hyperlipidemia Mixed - Primary Overweight Body Mass Index 25-29.9 Adult Smoking Tobacco Use Personal History Primary Osteoarthritis Multiple Sites Gastroesophageal Reflux Disease Without Esophagitis Abnormal Finding Nonspecific documented in this encounter Care Teams Drier Feeder Relationship Specialty Start Date End Date Opal Vazquez M.D. PCP - General 01/18/17 07/06/19 documented as of this encounter
--- OUTSIDE RECORDS SUMMARY | 2022-06-22 11:39 | XMS_ITS | Encounter Summary ---
:1940 Author Organization [facility] Address [address] [place] [address] Care Team Providers Name Role Phone Opal Vazquez M.D. Primary Care Provider Reason for Visit Reason Comments Communication Encounter Details Date Type Department Care Team Description 07/31/2017 Clinical Communication Department of Bernadine Brian, Communication MedicineBraden M.D. [facility], in [address] [address] [place], [place] [phone] (Work) [phone] Social History Tobacco Use Types Packs/Day Years [...] How often do you attend latter-day or yazidi Patient refused 05/13/2021 services? Do [...] slept in a care home (including now)? Sex Assigned at Date Recorded Female 02/25/2018 7:29 PM CDT documented as of this encounter Miscellaneous Notes Telephone Encounter - Maya Giron, RBrantN. - 08/01/2017 8:53 AM CST Message left for patient to contact [facility] to inquire about a bill. NE ROOM HELPER Telephone Encounter - Brii Montero - 07/31/2017 4:07 PM CST Patient is calling with a question on a bill from [facility] - 03-14-2017 patient has a bill to her insurance for $208.00. [phone] NE ROOM HELPER documented in this encounter Plan of Treatment Not on filedocumented as of this encounter Visit Diagnoses Not on filedocumented in this encounter Additional Health Concerns Assessment Noted Time PHQ-9 Depression Total Score: 1 04/08/2015 9:22 AM CDT documented as of this encounter Care Teams Taxicab Coordinator Relationship Specialty Start Date End Date Opal Vazquez M.D. PCP - General 01/18/17 07/06/19 documented as of this encounter
--- OUTSIDE RECORDS SUMMARY | 2022-06-22 11:39 | XMS_ITS | Encounter Summary ---
:1940 Author Organization [facility] Address [address] [place] [address] Care Team Providers Name Role Phone Opal Vazquez M.D. Primary Care Provider Encounter Details Date Type Department Care Team Description 03/09/2017 Hospital Encounter HX [facility] Chelsey Vazquez M.D. [address] [place] [address] [phone] (Wo rk) Social History Tobacco [...] How often do you attend rastafari or jain Patient refused 05/13/2021 services? Do you belong [...] or slept in a long-term (including now)? Sex Assigned at Date Recorded Female 02/25/2018 7:29 PM CDT documented as of this encounter Last Filed Vital Signs Vital Sign Reading Time Taken Comments Blood Pressure 136/82 03/09/2017 8:53 AM CDT Pulse 68 03/09/2017 8:53 AM CDT Temperature - - Respiratory Rate 12 03/09/2017 8:53 AM CDT Oxygen Saturation - - Inhaled Oxygen Concentration - - Weight 72.8 kg (160 lb 9.7 oz) 03/09/2017 8:53 AM CDT Height 163 cm (5' 4.17) 03/09/2017 8:53 AM CDT Body Mass Index 27.42 03/09/2017 8:53 AM CDT documented in this encounter Medications at Time of Discharge Medication Sig Dispensed Refills Start Date End Date simvastatin (ZOCOR) 20 mg Take 1 tablet by 0 03/0 04/201710/02/2019 tablet mouth daily. documented as of this encounter H&P Notes Opal Vazquez M.D. - 03/09/2017 8:35 AM CDT [id number] CHIEF COMPLAINT/REASON FOR VISIT Annual exam. HISTORY OF PRESENT ILLNESS This 76-year-old female presents to the clinic for annual evaluation. Is not fasting. Is due for herlabs in the fall. Would like to consider a mammogram this year. Did well with her pterygium surgery.Has an appointment later today with her membership sales advisor. Wears glasses. Is in need of some immunization updates. Is gradually getting her strength back from her accident, but she does have a bit of stiffness in her shoulders, which responds to stretching. She is not interested in a colonoscopy, but she might take home some FIT cards. Does note that with the hot whether she is more sensitive and needsto stay indoors and this is longstanding in nature. EMR reviewed. MEDICATIONS Reconciliation 1. Omeprazole 20 mg daily. 2. Simvastatin 20 mg at bedtime. 3. Magnesium 100 mg 3 times per day. 4. Multiple vitamin with minerals 1 to 2 tablets daily. 5. Glucosamine chondroitin each day. 6. Niacin each day. 7. [place]-3 each day. 8. Calcium with vitamin D each day. ALLERGIES No known drug allergies. SYSTEMS REVIEW CONSTITUTIONAL: Some slow weight gain over the years, but fairly stable for the last couple of years. No fevers, chills or night sweats. No change in her energy. EYES: Last ophthalmic exam with pterygium surgery. Follow up planned today. Wears glasses. See HPI and the Past Medical/Surgical History. Noblurred or double vision and no eye pain. ENT: Last dental exam October 2016. Goes every 6 months. No hearing loss, no tinnitus, no ear pain, no dizziness, no nasal congestion, no sore throat and no hoarseness. CARDIOVASCULAR: See HPI and the Past Medical/Surgical History. No palpitations, no ankle edema, no true claudication and no chest pain. RESPIRATORY: No cough, no wheezing, no hemoptysis and no shortness of breath. GASTROINTESTINAL: No abdominal pain and no heartburn. No problems with dysphagia,hematemesis or change in bowel regimen. No hematochezia and no problems with hemorrhoids. GENITOURINARY: No pain with urination. No urinary frequency. No vaginal bleeding or spotting. No vaginal discharge. No history of abnormal Pap smears. No concerns regarding sexually transmitted diseases. MUSCULOSKELETAL: No back, neck or joint pain apart from that delineated in the HPI and the Past Medical/Surgical History. No swelling or stiffness. No myalgias or weakness. INTEGUMENTARY: Does self-breast exams. Wears sunscreen. No changes in skin lesions, hair or nails. NEUROLOGIC: No history of syncopal events or seizures. PSYCHIATRIC: No history of anxiety or depression. No problems with sleep. ENDOCRINE: No history of diabetes or thyroid problems. HEMATOLOGIC/LYMPHATIC: No history of anemia or bleeding. ALLERGIC/IMMUNOLOGIC: Please see above. PAST MEDICAL/SURGICAL HISTORY SURGERIES: 1. Hemorrhoidectomy in 2003. 2. Arthroscope [...] on the right [address] Reid. 9. Pterygium extraction 07/14/2016. OTHER HOSPITALIZATIONS: G 6, P6, vaginal deliveries. OTHER HEALTH ISSUES: 1. [...] in 1945. PREVENTIVE SERVICES Tobacco: None. Mammogram: 2002 declines. Pap smear: Nonapplicable secondary to stated age. Chlamydia: Not applicable secondary to stated age. Colon screen: Negative FIT cards in 2014. New cards given 03/09/2017. Depression: No. PHQ-9 score 1. Asthma: No. Lipids: 05/24/2016. Boostrix: 03/09/2017. Pneumovax 03/12/2008. Influenza: 03/27/2016. DEXA scan: Declined. Prevnar: Given 03/19/2015. SOCIAL HISTORY ALCOHOL: Couple times per month. OTHER SOCIAL DRUGS: No other social drugs. CAFFEINE USE: 1-1/2 cups of coffee each day. Soda 3 to 4 times per week. Tea on a hot day in the summer or Gatorade. SEATBELT USE: Wears a seatbelt. DIET: Tries to follow a healthy diet. LAST BREAST EXAM: In the past. CALCIUM INTAKE: Adequate. EXERCISE: With walking and Silver Sneakers on a regular basis. FAMILY HISTORY Mother: secondary to motor vehicle accident in her 60s. Father: secondary to abdominal aortic aneurysm in 1980. Also had coronary artery disease. Brothers and sisters: at age 6 weeks secondary to malnutrition. Sisters times 2 both with hypertension. Sister with hyperlipidemia and coronary artery disease. Maternal aunt with TB. VITAL SIGNS Height 163 cm, weight 72.85 kg, temperature 36.2, respiratory rate 12, heart rate 68, systolic 136, diastolic 82. PHYSICAL EXAMINATION GENERAL: Neatly dressed and well groomed and in no apparent distress. SKIN: Solar changes in a sun wear distribution. Free from lesions. No palpable masses. HEAD: No trauma, tenderness or masses. EYES: Conjunctiva clear. PERRL. Full EOM. Funduscopic exam consistent with health history. ENT: External ears and nose without gross abnormalities. Tympanic membranes are forrester. Subjectively slightly decreased hearing. Nasal mucosa membranes pink and moist. Septum is midline. Oral: No exudates. Teeth in poor condition with periodontal disease. No pharyngeal erythema or exudates. Neck supple.Trachea midline. LYMPH NODES: Negative evaluation of neck, axilla and groin. THYROID: No thyroid masses, tenderness or enlargement. BREASTS: No masses or tenderness. No galactorrhea. Negative evaluation of the axilla. PERIPHERAL VESSELS: Positive radial, ulnar, femoral, posterior tibial and dorsalis pedis pulses. HEART: Regular rate and rhythm. No clicks, rubs or murmurs. Carotid arteries reveal no bruits. Abdominal aorta is not prominent. No ankle edema. No varicosities. LUNGS: Clear to auscultation. No palpable chest wall masses. ABDOMEN: Soft and nontender. Bowel sounds present. No organomegaly. PELVIS: No bony abnormalities. RECTUM: Declined. GENITALIA: Declined. SPINE: Degenerative changes consistent with patient's stated age, body habitus. Range of motion consistent with stated age. No bony abnormalities. JOINTS: Range of motion consistent with stated age. No bony abnormalities. EXTREMITIES: Nails and digits reflect degenerative changes. Range of motion of head, neck, ribs, right and left upper extremity, right and left lower extremity consistent with the patients stated age. GAIT: Smooth easy. MENTAL: Oriented x3. NEUROLOGIC: Reflexes 2+ in triceps, biceps, knees and ankles. IMPRESSION/REPORT/PLAN 1. Annual exam. 2. Chronic pain syndrome, multifactorial. 3. Degenerative joint disease. 4. Hyperlipidemia. 5. 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 6. Gastroesophageal reflux disease. 7. Solar skin changes. 8. History of basal cell carcinoma. PLAN: Reviewed exercise, cholesterol, diet/weight loss, calcium intake, alcohol use, immunizations, tobacco use, caffeine use, self-breast exams, mammography, colonic studies including colonoscopy or hemoccult testing, hormone replacement therapy as appropriate, seatbelt use, back care, depression, eye exams and other issues. Follow up if any change occurs or as noted. Will give FIT cards today. Continue supportive measures. Arrange for a mammogram. Signs and symptoms to lead to emergent evaluation are reviewed. Recheck of her labs planned for this fall. She is comfortable with this plan. Otherwiseas noted. Opal Vazquez M.D./saul Electronically Signed By: OPAL VAZQUEZ MD On: 03/10/2017 07:23 AM Modified by and Electronically Signed by: OPAL VAZQUEZ MD On: 03/10/2017 07:20 AM Source: [facility] [email or web address] Document Id: [id number] documented in this encounter Miscellaneous Notes Miscellaneous - Opal Vazquez M.D. - 03/09/2017 12:28 PM CDT Ambulatory Patient Summary [address] [id number] Visit Information Name: LIZZ CONTRERAS [facility] Number: [id number] Current Date: 03/09/2017 12:28:58 Physicians Attending Provider: OPAL VAZQUEZ MD Primary [...] Take Indications/Special Instructions/Comments/Notes for Patient Medication Changes/Routing biotin (biotin) Oral, once a day calcium-vitamin D (Calcium 600+D) glucosamine-chondroitin (Osteo Bi-Flex) [...] the Following Medications: Medication list as of 03-09-17 12:28 Attention: If you have any medications at [...] Electronically Signed By: OPAL VAZQUEZ MD Signed On:09-MAR-2017 12:28:50 Your Allergies & Intolerances Substance Reaction Symptoms [...] (SEBKER SK) Active Sun Damaged Skin Active Cancer Skin Basal Cell Active 09/20/16 [facility] in [address] [place] [address] Patient Name: LIZZ CONTRERAS Collected: 09/15/2016 Address: [facility]/State/Zip: [address] [place] [id number] Received: Reported: 09/15/2016 09/18/2016 Soc. Sec. #: /Age/Sex 1940 (Age: 76) F Physician(s): WM HUBER Copy To: [facility] [id number] [address] [place] [id number] SURGICAL PATHOLOGY REPORT FINAL DIAGNOSIS: SKIN, RIGHT NOSE: --- MICRONODULAR BASAL CELL CARCINOMA APPEARING AT THE MARGINS. (INCOMPLETELY EXCISED.) Your Upcoming Appointments Date Time Location Provider [...] if you dont have one. Go to [email or web address] and click on Create Your Account. Then, follow the directions to complete the online form. Youll be asked for your [facility] number which you can find at the top of this document. Your Goals/Additional instructions: Source: [facility] POWERCHART Document Id: [id number] Miscellaneous - Opal Vazquez M.D. - 03/09/2017 12:28 PM CDT Ambulatory Discharge Medication List [address] [id number] Visit Information Name: LIZZ CONTRERAS [facility] Number: [id number] Current Date: 03/09/2017 12:28:57 Attending Provider: OPAL VAZQUEZ MD Primary Care [...] Take Indications/Special Instructions/Comments/Notes for Patient Medication Changes/Routing biotin (biotin) Oral, once a day calcium-vitamin D (Calcium 600+D) glucosamine-chondroitin (Osteo Bi-Flex) [...] the Following Medications: Medication list as of 03-09-17 12:28 Attention: If you have any medications at [...] Electronically Signed By: OPAL VAZQUEZ MD Signed On:09-MAR-2017 12:28:50 Additional Information: Source: [facility] POWERCHART Document Id: [id number] Miscellaneous - Jeanne Tsang LBrantPBrantNBrant - 03/09/2017 8:53 AM CDT Adult Bread Supervisor Intake/History Adult Bread Supervisor Intake/History Entered On: 03/09/2017 8:54 CDT Performed On: 03/09/2017 8:53 CDT by JEANNE TSANG LPN Intake Chief Complaint : physical Temperature Core : 36.2 DegC(Converted to: 97.2 DegF) (LOW) Peripheral Pulse Rate : 68 /min Respiratory Rate : 12 /min (LOW) Systolic Blood Pressure : 136 mmHg Diastolic Blood Pressure : 82 mmHg NIBP Mean : 100 mmHg BP Location : Left upper extremity Blood Pressure Cuff Size : Regular Height : 163 cm(Converted to: 5 ft 4 inch(es), 64 inch(es)) Actual Weight : 72.85 kg(Converted to: 160 lb 10 oz) Dosing Weight Clinic : 72.85 kg Clinic BSA : 1.82 Body Mass Index : 27.42 kg/m2 JEANNE TSANG LPN - 03/09/2017 8:53 CDT General Info Languages : Maltese Is Patient Female and 13-50 no hysterectomy : No JEANNE TSANG LPN - 03/09/2017 8:53 CDT Subjective Pain Symptoms : No JEANNE TSNAG LPN - 03/09/2017 8:53 CDT Dependent Habits Exposure to Tobacco Smoke : Other: former Smoking Status : Former smoker Tobacco 2A : Yes Tobacco Use/Currently Using : No Tobacco Use/Last 30 Days : No Tobacco Use/Last 12 months : No JEANNE TSANG LPN - 03/09/2017 8:53 CDT [facility] Document Id: [id number] CDT!28 Miscellaneous - Jeanne Tsang LBrantP.NBrant - 03/09/2017 8:53 AM CDT Health Assessment Health Assessment Entered On: 03/09/2017 8:55 CDT Performed On: 03/09/2017 8:53 CDT by JEANNE TSANG LPN Health Assessment Complete Health Assessment Complete or Modified : Annual Health Assessment Annual Health Assessment Completed : Yes JEANNE TSANG LPN - 03/09/2017 8:53 CDT Nutrition Nutrition Risk Factors by History Adult : None JEANNE TSANG LPN - 03/09/2017 8:53 CDT Functional Current Daily Living Assistance : None JEANNE TSANG LPN - 03/09/2017 8:53 CDT Dependent Habits Exposure to Tobacco Smoke : Other: former Smoking Status : Former smoker Tobacco 2A : Yes Tobacco Use/Currently Using : No Tobacco Use/Last 30 Days : No Tobacco Use/Last 12 months : No Alcohol Use : Yes JEANNE TSANG LPN - 03/09/2017 8:53 CDT Psychosocial Domestic Abuse Concerns : None Behavioral Health Screen/Safety Assmt : Unable to obtain Anglican Preference : JEANNE Davidson LPN - 03/09/2017 8:53 CDT Advance Directive Advanced Directives : Yes Advance Directive Type : Living will Advance Directive Location : Other: pt will bring copy ЮЛИЯ JEANNE GENAO LPN - 03/09/2017 8:53 CDT Educ Needs Learning Style Preference Adult Grid Patient : Demonstration, Printed materials, Verbal explanation, Video/Educational TV Family : Demonstration, Printed materials, Verbal explanation, Video/Educational TV JEANNE TSANG LPN - 03/09/2017 8:53 CDT Source: [facility] [email or web address] Document Id: [id number] CDT!28 documented in this encounter Plan of Treatment Not on filedocumented as of this encounter Visit Diagnoses Not on filedocumented in this encounter Additional Health Concerns Assessment Noted Time PHQ-9 Depression Total Score: 1 04/08/2015 9:22 AM CDT documented as of this encounter Care Teams Shooter'S Helper Relationship Specialty Start Date End Date Opal Vazquez M.D. PCP - General 01/18/17 07/06/19 documented as of this encounter
--- OUTSIDE RECORDS SUMMARY | 2022-06-22 11:39 | XMS_ITS | Encounter Summary ---
:1940 Author Organization [facility] Address [address] [place] [address] Care Team Providers Name Role Phone Unavailable Primary Care Provider Unavailable Encounter Details Date Type Department Care Team Description 10/22/2015 Hospital Encounter HX [facility] Lashawn Vazquez M.D. [address] [place] [address] [phone] (Wo rk) Social History Tobacco [...] 05/13/2021 relatives? How often do you attend methodist or pentecostalism Patient refused 05/13/2021 services? Do you belong to any clubs or organizations such as Patient refused 05/13/2021 methodist groups, unions, fraternal or athletic groups, or [...] encounter Nursing Notes Jeanne Tsang L.P.N. - 10/25/2015 8:37 AM CDT Labs 10-22-15 Result card sent. Electronically Signed By: JEANNE TSANG LPN On: 10/25/2015 08:38 AM Source: [facility] POWERCHART Document Id: [id number] documented in this encounter Plan of Treatment Not on filedocumented as of this encounter Procedures Procedure Name Priority Date/Time Associated Comments Diagnosis ASPARTATE Routine 10/22/2015 8:43 Results for this AMINOTRANSFERASE (AST), AM CDT proc edure are in S/P the results section. documented in this encounter Results AST (Aspartate Aminotransferase) (10/22/2015 8:43 AM CDT) [facility] gist Method Time Signature Aspartate 26 8 - 43 POWERCHART Aminotransferase UNITL (AST), S Specimen (Source) Anatomical Collection Method Collection Time Re ceived Time Location / / Volume Laterality Blood 10/22/2015 8:43 AM CDT Opal Vazquez M.D. LAB BLOOD ADD-ON Performing Organization Address City/State/ZIP Code Phon e Number POWERCHART documented in this encounter Visit Diagnoses Not on filedocumented in this encounter Additional Health Concerns Assessment Noted Time PHQ-9 Depression Total Score: 1 04/08/2015 9:22 AM CDT documented as of this encounter
--- OUTSIDE RECORDS SUMMARY | 2022-06-22 11:39 | XMS_ITS | Encounter Summary ---
:1940 Author Organization [facility] Address [address] [place] [address] Care Team Providers Name Role Phone Opal Vazquez M.D. Primary Care Provider Reason for Visit Reason Comments Pre-op Exam Outpatient (Routine) - Closed Specialty Diagnoses / Procedures Referred By Contact Refer red To Contact General Surgery Diagnoses General Medical Examination Adult Elder Flores M.D. [address] [address] Referral ID Status Reason Start Date Expiration Date Visits Requ ested Visits Authorized [id number] Closed 02/20/2018 02/20/2019 1 1 Encounter Details Date Type Department Care Team Description 03/08/2018 Office Visit Department of [facility] Opal Vazquez [facility] Body Mass Index 25-29.9 Adult (Primary Dx); Cortes Christian M.D. General Medical Examination Adult; Clinic, in [address] Gastroesophageal Reflux Disease; [place], [place] Hyperlipidemia Mixed; [address] [address] Injury Head Subsequent; [place], [place] [phone] Primary Osteoa rthritis Multiple Sites; [id number] (Work) Varicose Vein Lower Extremity Bilateral; [phone] Preoperative Ex amination Cardiovascular; (Fax) Preoperative Ex amination Respiratory; Smoking Tobacco Use Personal History Social History Tobacco Use Types Packs/Day Years [...] How often do you attend sabianism or tenriism Patient refused 05/13/2021 services? Do [...] Sign Reading Time Taken Comments Blood Pressure 126/74 03/08/2018 10:47 AM CDT Pulse 64 03/08/2018 10:47 AM CDT Temperature 36.6 ??C (97.9 ??F) 03/08/2018 10:47 AM CDT Respiratory Rate 12 03/08/2018 10:47 AM CDT Oxygen Saturation 97% 03/08/2018 10:47 AM CDT Inhaled Oxygen Concentration - - Weight 72.5 kg (159 lb 13.3 oz) 03/08/2018 10:47 AM CDT Height 164 cm (5' 4.57) 03/08/2018 10:47 AM CDT Body Mass Index 26.96 03/08/2018 10:47 AM CDT documented in this encounter Progress Notes Roxann Tsang, L.P.N. - 03/08/2018 10:45 AM CDT Preop faxed to [facility]. documented in this encounter Consult Notes Opal Vazquez M.D. - 03/08/2018 10:45 AM CDT CHIEF COMPLAINT/REASON FOR VISIT Preop evaluation HISTORY OF PRESENT ILLNESS This 77-year-old female presents to the clinic secondary to preop evaluation. She has plans have a total right knee secondary to degenerative joint disease with failed medical management with the [facility] 03/26/2018. She was having some problems with her throat which began at sabianism. It developed into a cold for which she took some NyQuil and the symptoms went away. She is fearful it might reflect negative sequela of her heartburn. She does take omeprazole a few times per week. She does snore. She has had no true problems with surgery although she does note that she comes out of surgery ???hard?? . She has had no bleeding issues with surgery. None of her family members havehad any difficulties with surgeries in terms of anesthesia or bleeding either.?? EMR reviewed. MEDICATIONS RECONCILIATION? Current Outpatient Prescriptions: ??? acetaminophen (TYLENOL) 325 mg tablet, Take 325 mg by mouth every 4 (four) hours as needed for pain. Generally 1 dose on a rare basis, Disp: , Rfl: ??? omeprazole (PriLOSEC) 20 mg capsule, Take 20 mg by mouth every morning before breakfast. A few times per week, Disp: , Rfl: ??? simvastatin (ZOCOR) 20 mg tablet, Take 1 tablet by mouth daily., Disp: , Rfl: No Known Allergies REVIEW OF SYSTEMS CONSTITUTIONAL: No fevers, chills, night sweats, with slow weight gain over the years.?? EYES: No difficulties with blurred vision. Last ophthalmic exam May 2017. Wears glasses.?? ENT: No hearing loss or oral problems.??Last dental exam October 2017. Has hearing aids. CARDIOVASCULAR: No chest pain, palpitations, edema or true claudication.?? RESPIRATORY: No cough, wheeze, hemoptysis or shortness ofbreath.?? GASTROINTESTINAL: No abdominal pain, hematemesis, melena, dysphagia or change in daily bowel habits.?? GENITOURINARY: No nocturia, hematuria, incontinence or dysuria.?? MUSCULOSKELETAL: No joint pain, swelling, stiffness or obvious deformities.?? INTEGUMENTARY: No rashes or pruritus apart from that noted in the HPI and past medical surgical history.?? NEURO: No seizures or syncopal events. See the past medical surgical history.? PSYCHIATRIC: No history of anxiety or depression.?? No problems with sleep.?? ENDOCRINE: No history of diabetes or thyroid problems.?? HEMATOLOGIC/LYMPHATIC: No history of anemia or bleeding.?? ALLERGIC/IMMUNOLOGIC: Please see above Past Medical History: Diagnosis Date ??? Dermatitis [...] Past Surgical History: Procedure Laterality Date ??? DECOMPRESSION OF MEDIAN NERVE N/A 2014 Carpal tunnel release ??? EXCISION OF BUNION N/A Bunionectomy ??? HEMORRHOIDECTOMY N/A 12/19/2003 Hemorrhoidectomy ??? LIGATION OF FALLOPIAN TUBE N/A 08/20/1990 Tubal ligation ??? OTHER CONVERTED SHX (SEE COMMENT) N/A 10/12/2016 >Mohs micrographic surgery with partial primary closure. ??? OTHER SURGICAL HISTORY N/A 07/14/2016 Pterygium excision ??? VARICOSE VEIN STRIPPING N/A 04/22/2008 Varicose vein stripping PREVENTIVE SERVICES: Tobacco: Quit in 1977. Mammogram: 2001 declines. Pap smear: Nonapplicable secondary to stated age. Chlamydia: Not applicable secondary to stated age. Colon screen: Negative FIT cards in 2014. New cards given 03/09/2017. Depression: No. PHQ-9 score 1. Asthma: No. Lipids: 05/24/2016. Boostrix: 03/09/2017. Pneumovax 03/12/2008. Influenza: 03/27/2016. DEXA scan: Declined. Prevnar: 03/19/2015. SOCIAL HISTORY Alcohol 1-3 times per month Caffeine decaf coffee 2 cups per day with a soda twice per week Family History Problem Relation Age of Onset ??? Aneurysm Father AAA ??? Coronary artery disease Father ??? MVA - Motor vehicle accident Mother ??? Hypertension Sister ??? Other Brother Six weeks of age ??? Hypertension Sister ??? Hyperlipidemia Sister ??? Coronary artery disease Sister ??? TB - Pulmonary tuberculosis Aunt Vitals: 03/08/18 1047 BP: 126/74 Patient Position: Sitting Pulse: 64 Temp: 36.6 ??C Resp: 12 Height: 164 cm Weight: 72.5 kg SpO2: 97% TempSrc: Tympanic PHYSICAL EXAMINATION GENERAL:?? Neatly dressed.?? Well groomed. HEAD:?? No evidence of trauma, tenderness or masses.?? EYES: ??PERRL.?? Full EOM.?? Funduscopic examgrossly normal.??ENT:?? Ears: Tympanic membranes are forrester.?? Subjectively decreased hearing despite aids.?? Nose: Mucosal membranes pink and moist.?? Septum is midline.?? Oral: No exudates.?? Teeth in good condition.?? No pharyngeal erythema.?? Neck: Range of motion consistent with patient's stated age body habitus. Trachea midline.?? LYMPH NODES:?? No cervical or femoral adenopathy.?? THYROID:?? No thyroid masses, tenderness or enlargement. HEART:?? Regular rate and rhythm.? No clicks, rubs or murmurs.?? LUNGS:?? Clear to auscultation.?? No palpable chest wall masses.?? ABDOMEN:?? Soft, nontender, bowel sounds present, no organomegaly.?? EXTREMITIES:?? No ankle edema. Obvious degenerative changes in major and minor joints. See 's notes. Varicosities bilateral lower extremities. MENTAL:?? Oriented times three. NEURO:?? Reflexes 2+ triceps, biceps, knees and ankles. LABS AND PROCEDURES EXAM: DX CHEST AP OR PA AND LATERAL 2 VIEWS?? COMPARISON: March 19, 2015.?? FINDINGS: Normal cardiac silhouette. No focal areas of consolidation. No pneumothorax.?? Chest otherwise negative for acute findings.?? IMPRESSION: Negative chest Results for orders placed or performed in visit on 03/08/18 CBC with Differential, Blood Result Value Ref Range Hemoglobin 13.9 11.6 - 15.0 g/dL Hematocrit 40.2 35.5 - 44.9 % Erythrocytes 4.44 3.92 - 5.13 x10(12)/L MCV 90.5 78.2 - 97.9 fL RBC Distrib Width 12.8 12.2 - 16.1 % Platelet Count 196 157 - 371 x10(9)/L Leukocytes 6.4 3.4 - 9.6 x10(9)/L Neutrophils 3.37 1.56 - 6.45 x10(9)/L Lymphocytes 2.35 0.95 - 3.07 x10(9)/L Monocytes 0.53 0.26 - 0.81 x10(9)/L Eosinophils 0.10 0.03 - 0.48 x10(9)/L Basophils 0.02 0.01 - 0.08 x10(9)/L BMP (Basic Metabolic Panel) Result Value Ref Range Potassium, S 4.3 3.6 - 5.2 mmol/L Sodium, S 142 135 - 145 mmol/L Chloride, S 104 98 - 107 mmol/L Bicarbonate, S 29 22 - 29 mmol/L Anion Gap 9 7 - 15 Bld Urea Nitrog(BUN), S 12 6 - 21 mg/dL Creatinine, S 0.75 0.59 - 1.04 mg/dL eGFR-Non Black 76 >=60 mL/min/BSA eGFR-Black 88 >=60 mL/min/BSA Calcium, Total 10.0 8.8 - 10.2 mg/dL Glucose, S 115 70 - 140 mg/dL ECG 12 Lead Result Value Ref Range Ventricular Rate ECG/Min [address] Interval 140 ms QRSD Interval 78 ms QT Interval 436 ms QTC Interval 436 ms P Taylor -29 degrees R Taylor 9 degrees T Wave Taylor 20 degrees STOP BANG SCORE-3 ASSESSMENT/PLAN 1. PREOP 2. 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 GERD-clinically stable 4. Mixed hyperlipidemia-stable 5. History of a head injury with no significant residual 6. Varicose veins--stable 7. Personal history of tobacco use in remission 8. Overweight-progressive Supportive measures discussed in detail. Patient is cleared to go to the OR with 03/26/2018 at the [facility] for definitive treatment of her right knee. She is an ASA class 2. Acevedo's class 1. Detsky's class 1. Risks and benefits of medications discussed. All questions answered. Signs and symptoms to lead to emergent evaluation are reviewed. See the medication reconciliation andpreventive services. She will consider her options. Spent 30 of the 40 min visit in discussion of her various health issues. Opal Vazquez MD documented in this encounter Plan of Treatment Not on filedocumented as of this encounter Procedures Procedure Name Priority Date/Time Associated Diagnosis Comme nts ECG Routine 03/08/2018 11:43 Hyperlipidemia Mixed Results for this AM CDT Preoperative Examination pro cedure are in Cardiovascular the results Preoperative Examination sec tion. Respiratory CBC WITH Routine 03/08/2018 11:35 Gastroesophageal Reflux Results for this DIFFERENTIAL, B AM CDT Disease procedure are in Primary Osteoarthritis the r esults Multiple Sites section. Preoperative Examination Cardiovascular Preoperative Examination Respiratory BASIC METABOLIC Routine 03/08/2018 11:35 Overweight Body Mass Results for this PANEL, S/P AM CDT Index 25-29.9 Ad ult procedure are in Gastroesophageal Reflux the results Disease section. Injury Head Subs equent Primary Osteoarthritis Multiple Sites Preoperative Examination Cardiovascular [...] chest Opal Vazquez M.D. IMG DIAGNOSTIC IMAGING PROCE KAIT ECG 12 Lead (03/08/2018 11:43 AM CDT) P athologist Signature Ventricular Rate 60 BPM MUSE ECG/Min CT Interval 140 ms MUSE QRSD Interval 78 ms MUSE QT Interval 436 ms MUSE QTC Interval 436 ms MUSE P Taylor -29 degrees MUSE R Taylor 9 degrees MUSE T Wave Taylor 20 degrees MUSE Specimen Anatomical Collection Method Collection Time Receive d Time (Source) Location / / Volume Laterality 03/08/2018 11:43 03/08/2018 AM CDT 11:51 AM CDT Impressions MUSE - 03/08/2018 11:51 AM CDT Normal sinus rhythm Normal ECG When compared with ECG of 12-JUL-2016 11 :21, QRS voltage has increased Narrative This result has an attachment that is no t available. Opal Vazquez M.D. ECG ORDERABLES Performing Organization Address City/State/ZIP Code Phon e Number MUSE MUSE NA BMP (Basic Metabolic Panel) (03/08/2018 11:35 AM CDT) P athologist Signature Potassium, S 4.3 3.6 - 5.2 03/08/2018 ED [facility] mmol/L 1:23 PM [facility] Sodium, S 142 135 - 145 03/08/2018 ED [facility] mmol/L 1:23 PM [facility] Chloride, S 104 98 - 107 03/08/2018 ED [facility] mmol/L 1:23 PM [facility] Bicarbonate, S 29 22 - 29 03/08/2018 ED [facility] mmol/L 1:23 PM [facility] Anion Gap 9 7 - 15 03/08/2018 ED [facility] 1:23 PM [facility] BUN (Blood Urea 12 6 - 21 03/08/2018 ED [facility] Nitrogen), S mg/dL 1:23 PM [facility] Creatinine 0.75 0.59 - 03/08/2018 ED [facility] 1.04 mg/dL 1:23 PM T [facility] eGFR-Non 76 >=60 03/08/2018 ED [facility] Black/ mL/min/BSA 1:23 PM T [facility] [place] [facility] Comment: ----ADDITIONAL INFORMATION---- Estimated GFR calculated using the 2009 CKD_EPI creatinine equation. eGFR-Black/ 88 >=60 mL/min/BSA 2017 1:23 PM [facility] [place] [facility] Comment: ----ADDITIONAL INFORMATION---- Estimated GFR calculated using the 2009 CKD_EPI creatinine equation. Calcium, Total, S 10.0 8.8 - 10.2 mg/dL 03/08/2018 1 :23 PM CDT [facility] Glucose, S 115 70 - 140 mg/dL 03/08/2018 1:23 PM CDT [facility] Specimen Anatomical Collection Method Collection Time Receive d Time (Source) Location / / Volume Laterality Blood (Blood, 03/08/2018 11:35 03/08/2018 1:04 Venous) AM CDT PM CDT Opal Vazquez M.D. LAB BLOOD ADD-ON Performing Organization Address City/State/ZIP Code Phon e Number [facility] [address] [place] [id number] LAB CBC with Differential, Blood (03/08/2018 11:35 AM CDT) P athologist Signature Hemoglobin 13.9 11.6 - 03/08/2018 ED [facility] 15.0 g/dL 12:23 PM T [facility] Hematocrit 40.2 35.5 - 03/08/2018 ED [facility] 44.9 % 12:[address] [facility] LAB Erythrocytes 4.44 3.92 - 03/08/2018 ED [facility] 5.13 12:23 PM CDT HEALTH x10(12)/L [facility] MCV 90.5 78.2 - 03/08/2018 ED [facility] 97.9 fL 12:[address] [facility] RBC Distrib Width 12.8 12.2 - 03/08/2018 ED [facility] 16.1 % 12:23 PM CDT [facility] [place] [facility] Platelet Count 196 157 - 371 03/08/2018 ED [facility] x10(9)/L 12:23 PM CDT [facility] Leukocytes 6.4 3.4 - 9.6 03/08/2018 ED [facility] x10(9)/L 12:23 PM CDT [facility] Neutrophils 3.37 1.56 - 03/08/2018 ED [facility] 6.45 12:23 PM CDT HEALTH x10(9)/L [facility] [place] [facility] Lymphocytes 2.35 0.95 - 03/08/2018 ED [facility] 3.07 12:23 PM CDT [facility] x10(9)/L [facility] [place] [facility] Monocytes 0.53 0.26 - 03/08/2018 ED [facility] 0.81 12:23 PM CDT [facility]ALTH x10(9)/L [facility] [place] [facility] Eosinophils 0.10 0.03 - 03/08/2018 ED [facility] 0.48 12:23 PM CDT [facility]ALTH x10(9)/L [facility] [place] [facility] Basophils 0.02 0.01 - 03/08/2018 ED [facility] 0.08 12:23 PM CDT [facility]ALTH x10(9)/L [facility] [place] [facility] Specimen Anatomical Collection Method Collection Time Receive d Time (Source) Location / / Volume Laterality Blood (Blood, 03/08/2018 11:35 03/08/2018 Venous) AM CDT 11:37 AM CDT Opal Vazquez M.D. LAB BLOOD ADD-ON Performing Organization Address City/State/ZIP Code Phon e Number [facility] [address] [place] [address] [place] [facility] [address] [place] [address] [place] [facility] documented in this encounter Visit Diagnoses Diagnosis Overweight Body Mass Index 25-29.9 Adult - Primary General Medical Examination Adult Gastroesophageal Reflux Disease Hyperlipidemia Mixed Injury Head Subsequent Primary Osteoarthritis Multiple Sites Varicose Vein Lower Extremity Bilateral Preoperative Examination Cardiovascular Preoperative Examination Respiratory Smoking Tobacco Use Personal History Gastroesophageal Reflux Disease Hyperlipidemia Mixed Primary Osteoarthritis Multiple Sites Preoperative Examination Cardiovascular Preoperative Examination Respiratory documented in this encounter Additional Health Concerns Assessment Noted Time PHQ-9 Depression Total Score: 1 04/08/2015 9:22 AM CDT documented as of this encounter Care Teams Reservations Sales Agent Relationship Specialty Start Date End Date Opal Vazquez M.D. PCP - General 01/18/17 07/06/19 documented as of this encounter
--- OUTSIDE RECORDS SUMMARY | 2022-06-22 11:39 | XMS_ITS | Encounter Summary ---
:1940 Author Organization [facility] Address [address] [place] [address] Care Team Providers Name Role Phone Opal Vazquez M.D. Primary Care Provider Encounter Details Date Type Department Care Team Description 03/14/2017 Hospital Encounter HX [facility] Lashawn Vazquez M.D. [address] [place] [address] [phone] (Wo rk) Social History Tobacco [...] How often do you attend congregation or roman catholic Patient refused 05/13/2021 services? Do you [...] mouth daily. documented as of this encounter Miscellaneous Notes Miscellaneous - Opal Vazquez M.D. - 03/15/2017 12:00 AM CDT [id number] March 15, 2017 LIZZ CONTRERAS [address] [place] [id number] : 1940 Dear Ms. Contreras: This letter is in regard to your recent stool specimen to check for blood. The specimen was positivefor blood. This suggests you should consider a colonoscopy to be sure there are no worrisome findings occurring in your colon. If you would like us to arrange this appointment, please contact our office and we will place the appropriate documentation into the electronic medical record. We look forward to hearing from you. Sincerely, Opal Vazquez M.D. Department of Family Medicine [facility] in [address] [address] Phone: [facility] Electronically Signed By: OPAL VAZQUEZ MD On: 03/15/2017 12:49 PM Modified by and Electronically Signed by: OPAL VAZQUEZ MD On: 03/15/2017 12:49 PM Source: [facility] [email or web address] Document Id: [id number] documented in this encounter Plan of Treatment Not on filedocumented as of this encounter Visit Diagnoses Not on filedocumented in this encounter Additional Health Concerns Assessment Noted Time PHQ-9 Depression Total Score: 1 04/08/2015 9:22 AM CDT documented as of this encounter Care Teams Family Consumer Science Teacher Relationship Specialty Start Date End Date Opal Vazquez M.D. PCP - General 01/18/17 07/06/19 documented as of this encounter
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
--- OUTSIDE RECORDS SUMMARY | 2022-06-22 11:40 | XMS_ITS | Encounter Summary ---
:1940 Author Organization [facility] Address [address] [place] [address] Care Team Providers Name Role Phone Unavailable Primary Care Provider Unavailable Encounter Details Date Type Department Care Team Description 04/15/2015 Hospital Encounter HX [facility] Lashawn Vazquez M.D. [address] [place], [place] [address] (Wo rk) Social History [...] 05/13/2021 relatives? How often do you attend samaritan or amish Patient refused 05/13/2021 services? Do you belong to any clubs or organizations such as Patient refused 05/13/2021 samaritan groups, unions, fraternal or athletic groups, or [...] place to sleep or slept in a penitentiary (including now)? Sex Assigned at Date Recorded Female 02/25/2018 7:29 PM CDT documented as of this encounter Nursing Notes Jeanne Tsang L.P.N. - 04/19/2015 8:58 AM CDT Labs 04-15-15 Result card sent. Electronically Signed By: JEANNE TSANG LPN On: 04/19/2015 08:58 AM [facility] Document Id: [id number] documented in this encounter Miscellaneous Notes Telephone Encounter - Conversion, Historical Provider Ser - 10/19/2015 8:12 AM CDT *Phone Message Document Contains Addenda Addendum by JEANNE TSANG LPN on October 19, 2015 10:21:13 CDT See phone note 3-14-16. From: KING PEÑA ( Taylor Nurse) To: ANITA Vazquez Nurse; Sent: 10/19/2015 08:12:30 CDT Subject: *Phone Message Caller is: ( ) Patient ( ) Mother ( ) Father ( ) Spouse ( ) Daughter ( ) Son ( ) Pharmacy ( ) Other: Physician: Patient MRN #: Reason for Call: Pt returning call to nurse, please call back [phone] Message: Advice/Action: Source used: ( ) Verbalizes [...] back cell phone number ( ) Source: [facility] [employer]looks Document Id: [id number] Telephone Encounter - Conversion, Historical Provider Ser - 10/18/2015 8:09 AM CDT *Phone Message- Dr. Vazquez Document Contains Addenda Addendum by JEANNE TSANG LPN on October 19, 2015 10:20:57 CDT Patient needs refill of omeprozole. Rx was filled in May with refills for 1 year. Advised patient to contact pharmacy, and if she has any further questions to let me know. Addendum by JEANNE TSANG LPN on October 18, 2015 17:44:06 CDT Attempted to call, left message to call back. From: THERESA UMANA To: ANITA Vazquez Nurse; Sent: 10/18/2015 08:09:03 CDT Subject: *Phone Message- Dr. Vazquez Caller is: (x ) Patient ( ) Mother ( ) Father ( ) Spouse ( ) Daughter ( ) Son ( ) Pharmacy ( ) Other: Physician: Dr. Vazquez Patient MRN #: Reason for Call: Message: S: Pt called clinic to talk to nurse B: regarding refill- mail order- has not heard back A: nurse to call back R: Please call pt at [phone] after 11:00 Advice/Action: Source used: ( ) Verbalizes understanding [...] back cell phone number ( ) Source: [facility] [employer] Document Id: [id number] Telephone Encounter - Conversion, Historical Provider Ser - 04/20/2015 2:58 PM CDT *Phone Message Document Contains Addenda Addendum by JEANNE TSANG LPN on 23 April 2015 10:24:21 CDT Call returned. Rx sent to pharmacy. Addendum by JEANNE TSANG LPN on 22 April 2015 09:57:26 CDT Attempted to call, left message to call back. Addendum by JEANNE TSANG LPN on 21 April 2015 10:29:54 CDT Attempted to call, left message to call back. From: RACHEL RODRIGUEZ ( [employer] Machine Operator Hop Worker) To: ANITA Vazquez Nurse; Sent: 04/20/2015 14:58:59 CDT Subject: *Phone Message Caller is: ( ) Patient ( ) Mother ( ) Father ( ) Spouse ( ) Daughter ( ) Son ( ) Pharmacy ( ) Other: Physician: Patient MRN #: Reason for Call: S:Rolanda called stating that she has seen her lab results and assumes that Dr Vazquez will want her to start on her cholosterol meds again B: A: R: Please call [phone] Message: Advice/Action: Source used: ( ) Verbalizes [...] back cell phone number ( ) Source: [facility] POWERCHART Document Id: [id number] documented in this encounter Plan of Treatment Not on filedocumented as of this encounter Procedures Procedure Name Priority Date/Time Associated Diagnosis Comme nts OCCULT BLOOD, QL, Routine 04/15/2015 5:23 PM Resu lts for this IMMUNOCHEMICAL, F CDT procedure are in the results section. documented in this encounter Results Fecal Occult Blood, Colorectal Cancer Screen, Qualitative, Immunochemical (04/15/2015 5:23 PM CDT) P athologist Signature Occult Blood, Negative Negative POWERCHART Fecal Comment: Negative result. ??This test will not de tect upper gastrointestinal bleeding; the HemoQuant test ([id number])should be ordered if clinically indicated. Test Performed by: [place] [address] Heavy Truck Technician: Silvino Elizondo II, M.D., Ph.D. Specimen (Source) Anatomical Collection Method Collection Time Re ceived Time Location / / Volume Laterality Stool 04/15/2015 5:23 PM CDT Opal Vazquez M.D. LAB BODY FLUIDS AND STOOLS O RDERABLES Performing Organization Address City/State/ZIP Code Phon e Number POWERCHART documented in this encounter Visit Diagnoses Not on filedocumented in this encounter Additional Health Concerns Assessment Noted Time PHQ-9 Depression Total Score: 1 04/08/2015 9:22 AM CDT documented as of this encounter
--- OUTSIDE RECORDS SUMMARY | 2022-06-22 11:40 | XMS_ITS | Encounter Summary ---
:1940 Author Organization [facility] Address [address] [place] [address] Care Team Providers Name Role Phone Unavailable Primary Care Provider Unavailable Encounter Details Date Type Department Care Team Description 04/08/2010 Hospital Encounter [facility] Lashawn Vazquez M.D. [address] [place], [place] [address] (Wo rk) Social History [...] How often do you attend religion or moravian Patient refused 05/13/2021 services? Do you belong [...] or slept in a mcc (including now)? Sex Assigned at Date Recorded Female 02/25/2018 7:29 PM CDT documented as of this encounter Progress Notes Opal Vazquez M.D. - 04/08/2010 12:00 AM CDT [id number] Patient's cholesterol was quite elevated. Her fasting blood sugar was stable. Would recommend following up in the clinic to discuss various options. Card is sent to the patient in regards to this issue. NORA/judi Signed Opal Vazquez M.D. Family Medicine Electronically Signed By:OPAL VAZQUEZ MD On 04/13/2010 06:38 PM Source: [facility] MHSDOLBEYNONRADSYS Document Id: [id number] documented in this encounter Nursing Notes Jeanne Tsang, L.P.N. - 04/08/2010 11:34 AM CDT Labs 9-3-10 Result card sent per Dr. Vazquez. Electronically Signed By:JEANNE TSANG LPN On 04/08/2010 11:34 am Source: [facility] POWERCHART Document Id: [id number] documented in this encounter Plan of Treatment Not on filedocumented as of this encounter Visit Diagnoses Not on filedocumented in this encounter
--- OUTSIDE RECORDS SUMMARY | 2022-06-22 11:40 | XMS_ITS | Encounter Summary ---
:1940 Author Organization [facility] Address [address] [place] [address] Care Team Providers Name Role Phone Unavailable Primary Care Provider Unavailable Encounter Details Date Type Department Care Team Description 10/05/2015 Hospital Encounter [facility]X [facility] Lashawn Vazquez M.D. [address] [place], [place] [address] (Wo rk) Social History [...] 05/13/2021 relatives? How often do you attend zoroastrian or anabaptism Patient refused 05/13/2021 services? Do you belong to any clubs or organizations such as Patient refused 05/13/2021 zoroastrian groups, unions, fraternal or athletic groups, or [...] Diagnosis Comme nts LIPID PANEL, S Routine 10/05/2015 9:15 AM Results for this WRECKER OPERATOR procedure are i n the results section . documented in this encounter Results (ABNORMAL) Lipid Panel (10/05/2015 9:15 AM WRECKER OPERATOR) P athologist Signature Calculated LDL 250 (H) <=129 MGDL POWERCHART Comment: 2013 National [...] for FH and FDB is available [facility]: FH/ADH Genetic Reflex Collado el (test ADHP). Acquired (non-genetic) causes of markedly increased LDL cholesterol include cholestatic liver disease due to the presence of LpX. If a genetic form of hypercholesterolemia is suspected, family studies including biochemical testing fo r lipids (total cholesterol,triglycerides, LDL cholesterol and HDL cholesterol) are recommended. ??Please contact the laboratory at or the on-line test catalog at [employer] for information about how to order these ilan ts or to speak with a genetic counselor. Further interpretation would require clinical information. Total Cholesterol/HDL Ratio 6.52 PO WERCHART Cholesterol, Total 339 (H) <=199 MGDL POWERCHART Comment: 2013 National Lipid Association recommen dations for Total Cholesterol in adults ages 18 and up: Desirable <200 mg/dL Borderline high 200-239 mg/dL High 240 mg/dL 2014 National Lipid Association recommen dations for Total Cholesterol in children ages 2 to 17. Acceptable <170 mg/dL Borderline High 170-199 mg/dL High 200 mg/dL HX HDL 52 >=50 MGDL POWERCHART Comment: 2013 National Lipid Association recommen dations for HDL-C in adults ages 18 and up: Low <40 mg/dL (Men) Low <50 mg/dL (Women) 2014 National Lipid Association recommen dations for HDL-C in children ages 2 to 17. Low <40 mg/dL Borderline Low 40-45 mg/dL Acceptable >45 mg/dL Triglycerides 185 (H) <=149 MGDL POWERCHART Comment: 2013 National Lipid Association recommen dations for Triglycerides in adults ages 18 and up: Normal <150 mg/dL Borderline High 150-199 mg/dL High 200-499 mg/dL Very High 500 mg/dL 2013 National Lipid Association recommen dations for [...] risk assessment when triglycerides are >400mg/dL. HXLDL/HDL 5 POWERCHART Specimen (Source) Anatomical Collection Method Collection Time Re ceived Time Location / / Volume Laterality Blood 10/05/2015 9:15 AM WRECKER OPERATOR Opal Vazquez M.D. LAB BLOOD ADD-ON Performing Organization Address City/State/ZIP Code Phon e Number POWERCHART documented in this encounter Visit Diagnoses Not on filedocumented in this encounter Additional Health Concerns Assessment Noted Time PHQ-9 Depression Total Score: 1 04/08/2015 9:22 AM CDT documented as of this encounter
--- OUTSIDE RECORDS SUMMARY | 2022-06-22 11:40 | XMS_ITS | Encounter Summary ---
:1940 Author Organization [facility] Address [address] [place] [address] Care Team Providers Name Role Phone Unavailable Primary Care Provider Unavailable Encounter Details Date Type Department Care Team Description 03/31/2010 Hospital [facility] Lashawn Vazquez M.D. [address] [place], [place] [address] (Wo rk) Social History [...] How often do you attend mandaeism or evangelical Patient refused 05/13/2021 services? Do you belong [...] to sleep or slept in a senior care (including now)? Sex Assigned at Date Recorded Female 02/25/2018 7:29 PM CDT documented as of this encounter H&P Notes Opal Vazquez M.D. - 03/31/2010 12:00 AM CDT [id number] IMPRESSION/REPORT/PLAN 1. Annual exam. 2. Hyperlipidemia. 3. GERD. 4. Dysuria. Plan 1. Reviewed exercise, cholesterol, diet/weight loss, calcium intake, alcohol use, immunizations, tobacco use, caffeine use, self-breast exams, mammography, colonic studies including colonoscopy or hemoccult testing, hormone replacement therapy as appropriate, seatbelt use, back care, depression, eye exams and other issues. Following up if any change occurs or as noted. 2. Would recommend a lipid profile. Appropriate documentation is completed and given to the patient to arrange for some time in the future as she is not fasting today. Follow up her urinalysis, CBC, basic metabolic profile, and AST. Offered other preventive health care maintenance. Patient will consider but at this time she is currently declines. She is in the process of completing her living will. Signs and symptoms to lead to a more urgent evaluation are reviewed. Otherwise as noted. 3. Laboratory evaluation has returned with an elevated random blood sugar of 134. Would recommend a fasting blood sugar in the near future. She will be following up for a fasting lipid profile. Will add the blood sugar to her upcoming lab assessment. Card is sent to the patient in regards to this issue and her other labs which are normal. CHIEF COMPLAINT/REASON FOR VISIT Annual examination. HISTORY OF PRESENT ILLNESS This 69-year-old female presents to the clinic for annual evaluation. She would like to have her cholesterol checked but she is not fasting. Also feels she may have a urinary tract infection as she has a bit dysuria and this has been going on for the last couple of weeks. Has had no fevers or chills. She needs a refill of her omeprazole for her mail in program. Had a large amount of dental work on the in regards to root of her tooth and had this removed and has follow up coming up in the near future. Clinic Face Sheet/Medication Sheet are reviewed. Please see the chart. CURRENT MEDICATIONS Post-visit Medication Reconciliation Omeprazole 20 mg orally each day. Niacin each day. Fish oil each day. Calcium with vitamin D, dose is not clear, each day. Vitamin E, dose is not clear, each day. Ocuvite each day. ALLERGIES No known drug allergies. SYSTEMS REVIEW Constitutional: Slow weight gain over the years. No fevers, chills or night sweats. No change in her energy. Eyes: No blurred or double vision and no eye pain. Last ophthalmic exam in 2008 wears glasses. ENT: No hearing loss, no tinnitus, no ear pain, no dizziness, no nasal congestion, no sore throat and no hoarseness. Last dental exam as noted above. CV: Has occasional palpitations, one or two beats once or twice a year, no ankle edema, no true claudication and no chest pain. Respiratory: No cough, no wheezing, no hemoptysis and no shortness of breath. GI: No abdominal pain. Does have heartburn but this has significantly improved as she takes her medication and watches her diet. No problems with dysphagia, hematemesis or change in daily bowel regimen. No hematochezia and no problems with hemorrhoids. : No pain with urination. No urinary frequency. No vaginal bleeding or spotting. No vaginal discharge. No history of abnormal Pap smears. No concerns regarding sexually transmitted diseases. Musculoskeletal: No change in her episodic back, neck or joint pain. No swelling or stiffness. No myalgias or weakness. Integumentary: No changes in skin lesions, hair or nails. Is not interested in mammograms. Neuro: No history of syncopal events or seizures. Psychiatric: No history of anxiety or depression. No problems with sleep. States she has had some anxiety in the past but has never required any medication and feels like she is able to manage her symptoms without medications. Endocrine: No history of diabetes or thyroid problems. Hematologic/lymphatic: No history of anemia or bleeding. Although she states she is unable to give blood. Allergic/immunologic: Please see above. PAST MEDICAL/SURGICAL HISTORY Surgeries Hemorrhoidectomy in 2003. Arthroscope of the right knee 2004 secondary to a meniscal tear. Tubal ligation in 1990 Bunionectomy the left 2003 on the right 2004. Varicose vein striping April 22, 2008. Other hospitalization vaginal delivery. Other health problems Episodic pain secondary to some degenerative joint disease, currently stable. Varicose veins currently stable. Ear pruritus currently stable. GERD. Hyperlipidemia. Limited health care maintenance PREVENTIVE SERVICES Tobacco: None. Mammogram 2001 declines. Pap smear: Declines. Chlamydia not applicable secondary to stated age. Colon screen . Depression: No. Asthma: No. Lipids: advised. Tetanus: . Pneumovax 03-12-2008. 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 DEXA scan declined. SOCIAL HISTORY Alcohol: 2 to 3 times per month. Other social drugs: None. Caffeine use: Couple of cups of coffee per day. Two to three sodas per day. Seatbelt use: Wears. Diet: Tries to follow a healthy diet. Last breast exam: 2001. Calcium intake: Lower limits of normal. Exercises with walking 3 1/2 miles every other day. FAMILY HISTORY Mother: secondary to motor vehicle accident in his 60s. Father: secondary to abdominal aortic aneurysm in 1980. Also had coronary artery disease. Brothers and sisters: at age 6 weeks secondary to malnutrition. Sisters times 2 with hypertension. Sister with hyperlipidemia. Maternal aunt with TB VITAL SIGNS DATE/TIME 03-31-2010 HEIGHT 162.5 cm WEIGHT 68.1 kg TEMPERATURE 36.4 degreesC RESP RATE 20 / min PULSE 80 SYSTOLIC 112 DIASTOLIC 58 PHYSICAL EXAM AREA EXAM TEXT GENERAL Neatly dressed and well groomed and in no apparent distress. SKIN No palpable masses. Solar changes in a sun wear distribution. HEAD No trauma, tenderness or masses. EYES Conjunctiva clear. PERRL. Full EOM. Funduscopic exam suggests early cataracts. ENT ENT: External ears and nose without gross abnormalities. Tympanic membranes are forrester. Subjectively intact hearing. Nasal mucosa membranes pink and moist. Septum is midline. Oral: No exudates. Teeth in good repair with some evidence of mild periodontal disease. No pharyngeal erythema or exudates. Neck supple. Trachea midline. LYMPH NODES Negative evaluation of neck, axilla and groin. THYROID No thyroid masses, tenderness or enlargement. BREASTS Patient declines. PERIPHERAL Positive radial, ulnar, femoral, posterior tibial and dorsalis VESSELS pedis pulses. HEART Regular rate and rhythm. No clicks, rubs or murmurs. Carotid arteries reveal no bruits. Abdominal aorta is not prominent. No ankle edema. No varicosities. LUNGS Clear to auscultation. No palpable chest wall masses. ABDOMEN Soft and nontender. Bowel sounds present. No organomegaly. PELVIS No bony abnormalities. RECTUM Declines. GENITALIA Declines. SPINE Range of motion consistent with stated age. Degenerative changes consistent with patient's stated age. JOINTS Range of motion consistent with stated age. Degenerative changes consistent with patient's stated age. EXTREMITIES Nails and digits reflect degenerative changes. Range of motion of head, neck, ribs, right and left upper extremity, right and left lower extremity consistent with the patient's stated age. GAIT Smooth easy. MENTAL Oriented x 3. NEURO Reflexes 2+ in triceps, biceps, knees and ankles. BJ/kmk Signed Opal Vazquez M.D. Family Medicine Electronically Signed By:OPAL VAZQUEZ MD On 04/04/2010 02:51 pm Modified by:OPAL VAZQUEZ MD On 04/04/2010 02:51 pm Source: [facility] MHSDOLBEYNONRADSYS Document Id: [id number] documented in this encounter Nursing Notes Jeanne Tsang L.PBrantN. - 03/31/2010 4:54 PM CDT Labs 03-31-10 Result card sent per Dr. Vazquez. Electronically Signed By:JEANNE TSANG LPN On 03/31/2010 04:54 pm Source: [facility] POWERCHART Document Id: [id number] documented in this encounter Miscellaneous Notes Miscellaneous - Jeanne Tsang L.P.N. - 03/31/2010 11:01 AM CDT Adult Will Call Order Clerk Intake/History Adult Will Call Order Clerk Intake/History Entered On: 03/31/2010 11:03 CDT Performed On: 03/31/2010 11:01 CDT by JEANNE TSANG LPN Intake Chief Complaint: physical Temperature Core: 36.4DegC(Converted to: 97.5DegF) (LOW) Peripheral Pulse Rate: 80bpm Respiratory Rate: 20br/min Systolic Blood Pressure: 112mmHg Diastolic Blood Pressure: 58mmHg NIBP Mean: 76mmHg BP Location: Left upper extremity Height: 162.50cm(Converted to: 5ft 4in, 5.33ft, 63.98in) Clinic BSA: 1.75 Actual Weight: 68.100kg(Converted to: 150.135lb) Body Mass Index: 26kg/m2 Dosing Weight Clinic: 68.10kg JEANNE TSANG LPN - 03/31/2010 11:01 CDT Subjective Pain Symptoms: No JEANNE TSANG LPN - 03/31/2010 11:01 CDT Dependent Habits Tobacco Use/Currently Using: No JEANNE TSANG LPN - 03/31/2010 11:01 CDT Allergies Allergies (Active) NKA Estimated Onset Date: Unspecified ; Created By: OPAL VAZQUEZ MD; Reaction Status: Active ; Category: Drug ; Substance: NKA ; Type: Allergy ; Updated By: OPAL VAZQUEZ MD; Reviewed Date: 03/28/2010 17:13 CDT [facility] [employer] Document Id: [id number] CDT!19 documented in this encounter Plan of Treatment Not on filedocumented as of this encounter Visit Diagnoses Not on filedocumented in this encounter
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
--- OUTSIDE RECORDS SUMMARY | 2022-06-22 11:40 | XMS_ITS | Encounter Summary ---
:1940 Author Organization [facility] Address [address] [place] [address] Care Team Providers Name Role Phone Unavailable Primary Care Provider Unavailable Encounter Details Date Type Department Care Team Description 11/08/2012 Hospital Encounter HX [facility] Lashawn Garcia M.D. [address] [place], [place] [address] (Wo rk) Social History [...] How often do you attend mosque or holiness Patient refused 05/13/2021 services? Do [...] or slept in a half-way (including now)? Sex Assigned at Date Recorded Female 02/25/2018 7:29 PM CDT documented as of this encounter Plan of Treatment Not on filedocumented as of this encounter Procedures Procedure Name Priority Date/Time Associated Diagnosis Comme nts US AORTA Routine 11/08/2012 7:53 AM Results f or this CDT procedure are i n the results section . documented in this encounter Results US Aorta (11/08/2012 7:53 AM CDT) Anatomical Region Laterality Modality Abdomen, Pelvis N/A Ultrasound Specimen (Source) Anatomical Collection Method Collection Time Re ceived Time Location / / Volume Laterality 11/08/2012 7:53 AM CDT Impressions 11/08/2012 9:30 AM CDT No sonographic evidence of an abdominal aortic aneurysm (no AAA). Narrative 11/08/2012 9:30 AM CDT HISTORY: Family history of AAA, 72-year- old female Technique: Grayscale and Doppler imaging of the abdominal aorta was performed. COMPARISON: None. FINDINGS: The abdominal aorta is normal in caliber throughout without evidence of aneurysmal dilatation. The m aximum AP diameter is 2.4 cm proximally near the diaphragmatic hiatus , with normal tapering throughout. Both common iliac arteries a re normal in caliber. No abnormal fluid collections are identifie d adjacent to the aorta. Normal triphasic waveform. Peak systolic aortic velocity of 81 cm/s. No other significant or incidental findi ngs are noted. Procedure Note Anthony Arias M.D. / Provider, Eugene lazaro M.D. - 12/22/2016 HISTORY: Family history of AAA, 72-year- old female Technique: Grayscale and Doppler imaging of the abdominal aorta was performed. COMPARISON: None. FINDINGS: The abdominal aorta is normal in caliber throughout without evidence of aneurysmal dilatation. The m aximum AP diameter is 2.4 cm proximally near the diaphragmatic hiatus , with normal tapering throughout. Both common iliac arteries a re normal in caliber. No abnormal fluid collections are identifie d adjacent to the aorta. Normal triphasic waveform. Peak systolic aortic velocity of 81 cm/s. No other significant or incidental findi ngs are noted. IMPRESSION: No sonographic evidence of a n abdominal aortic aneurysm (no AAA). Franck Berman Jr., R.D.M.S. IMG US PROCEDURES documented in this encounter Visit Diagnoses Not on filedocumented in this encounter
--- OUTSIDE RECORDS SUMMARY | 2022-06-22 11:40 | XMS_ITS | Encounter Summary ---
:1940 Author Organization [facility] Address [address] [place] [address] Care Team Providers Name Role Phone Unavailable Primary Care Provider Unavailable Encounter Details Date Type Department Care Team Description 05/31/2015 Hospital Encounter HX [facility] Lashawn Vazquez M.D. [address] [place], [place] [address] (Wo rk) Social History [...] How often do you attend denominational or advent Patient refused 05/13/2021 services? Do you belong [...] slept in a senior living (including now)? Sex Assigned at Date Recorded Female 02/25/2018 7:29 PM CDT documented as of this encounter Nursing Notes Jeanne Tsang L.P.N. - 06/02/2015 5:27 PM CDT Labs 05-31-15 Result card sent. Electronically Signed By: JEANNE TSANG LPN On: 06/02/2015 05:27 PM Source: [facility] POWERCHART Document Id: [id number] documented in this encounter Plan of Treatment Not on filedocumented as of this encounter Procedures Procedure Name Priority Date/Time Associated Comments Diagnosis LIPID PANEL, S Routine 05/31/2015 11:32 Results f or this AM CDT procedure are i n the results section. ASPARTATE Routine 05/31/2015 11:32 Results for this AMINOTRANSFERASE (AST), AM CDT proc edure are in S/P the results section. documented in this encounter Results (ABNORMAL) Lipid Panel (05/31/2015 11:32 AM CDT) P athologist Signature Calculated LDL 173 (H) <=129 MGDL POWERCHART Comment: 2014 National [...] esting [facility] FH/ADH Genetic Reflex [place] [...] at or the on-line test catalog at [facility] for information about how to order these ilan ts or to speak with a genetic counselor. Further interpretation would require clinical information. Total Cholesterol/HDL Ratio 5.08 PO WERCHART Cholesterol, Total 269 (H) <=199 MGDL POWERCHART Comment: 2014 National Lipid Association recommen dations for Total Cholesterol in adults ages 18 and up: Desirable <200 mg/dL Borderline high 200-239 mg/dL High 240 mg/dL 2014 National Lipid Association recommen dations for Total Cholesterol in children ages 2 to 17. Acceptable <170 mg/dL Borderline High 170-199 mg/dL High 200 mg/dL HX HDL 53 >=50 MGDL POWERCHART Comment: 2014 National Lipid Association recommen dations for HDL-C in adults ages 18 and up: Low <40 mg/dL (Men) Low <50 mg/dL (Women) 2014 National Lipid Association recommen dations for HDL-C in children ages 2 to 17. Low <40 mg/dL Borderline Low 40-45 mg/dL Acceptable >45 mg/dL Triglycerides 214 (H) <=149 MGDL POWERCHART Comment: 2014 National [...] risk assessment when triglycerides are >400mg/dL. HXLDL/HDL 3 POWERCHART Specimen (Source) Anatomical Collection Method Collection Time Re ceived Time Location / / Volume Laterality Blood 05/31/2015 11:32 AM CDT Opal Vazquez M.D. LAB BLOOD ADD-ON Performing Organization Address City/State/ZIP Code Phon e Number POWERCHART AST (Aspartate Aminotransferase) (05/31/2015 11:32 AM CDT) [facility] gist Method Time Signature Aspartate 21 8 - 43 POWERCHART Aminotransferase UNITL (AST), S Specimen (Source) Anatomical Collection Method Collection Time Re ceived Time Location / / Volume Laterality Blood 05/31/2015 11:32 AM CDT Opal Vazquez M.D. LAB BLOOD ADD-ON Performing Organization Address City/State/ZIP Code Phon e Number POWERCHART documented in this encounter Visit Diagnoses Not on filedocumented in this encounter Additional Health Concerns Assessment Noted Time PHQ-9 Depression Total Score: 1 04/08/2015 9:22 AM CDT documented as of this encounter
--- OUTSIDE RECORDS SUMMARY | 2022-06-22 11:40 | XMS_ITS | Encounter Summary ---
:1940 Author Organization [facility] Address [address] [place] [address] Care Team Providers Name Role Phone Unavailable Primary Care Provider Unavailable Encounter Details Date Type Department Care Team Description 11/22/2012 Hospital Encounter HX [facility] Lashawn Vazquez M.D. [address] [place], [place] [address] (Wo rk) Social History [...] often do you attend latter day or episcopal Patient refused 05/13/2021 services? Do [...] encounter Nursing Notes Jeanne Tsang L.P.N. - 11/22/2012 4:54 PM CDT Labs 11-22-12 Result card sent. Electronically Signed By: JEANNE TSANG LPN On: 11/22/2012 04:54 PM Source: [facility] POWERCHART Document Id: [id number] documented in this encounter Plan of Treatment Not on filedocumented as of this encounter Procedures Procedure Name Priority Date/Time Associated Diagnosis Comme nts LIPID PANEL, S Routine 11/22/2012 8:41 AM Results for this CDT procedure are i n the results section . documented in this encounter Results (ABNORMAL) Lipid Panel (11/22/2012 8:41 AM CDT) [facility] gist Method Time Signature Cholesterol, Total 368 (H) 0 - 200 POWERCHART MGDL HX HDL 42.0 40.0 - POWERCHART 60.0 MGDL Triglycerides 319 (H) 0 - 150 POWERCHART MGDL Calculated LDL 262 (H) 0 - 100 POWERCHART MGDL Specimen (Source) Anatomical Collection Method Collection Time Re ceived Time Location / / Volume Laterality Blood 11/22/2012 8:41 AM CDT Opal Vazquez M.D. LAB BLOOD ADD-ON Performing Organization Address City/State/ZIP Code Phon e Number POWERCHART documented in this encounter Visit Diagnoses Not on filedocumented in this encounter
--- OUTSIDE RECORDS SUMMARY | 2022-06-22 11:40 | XMS_ITS | Encounter Summary ---
:1940 Author Organization [facility] Address [address] [place] [address] Care Team Providers Name Role Phone Unavailable Primary Care Provider Unavailable Encounter Details Date Type Department Care Team Description 04/14/2015 Hospital Encounter HX [facility] Lashawn Vazquez M.D. [address] [place], [place] [address] (Wo rk) Social History [...] 05/13/2021 relatives? How often do you attend anabaptism or mandaen Patient refused 05/13/2021 services? Do you belong to any clubs or organizations such as Patient refused 05/13/2021 anabaptism groups, unions, fraternal or athletic groups, or [...] encounter Nursing Notes Jeanne Tsang L.P.N. - 04/15/2015 9:20 AM CDT Labs 04-14-15 Result card sent. Electronically Signed By: JEANNE TSANG LPN On: 04/15/2015 09:20 AM [facility] Document Id: [id number] documented in this encounter Miscellaneous Notes Telephone Encounter - Conversion, Historical Provider Ser - 04/15/2015 10:00 AM CDT *Phone Message Document Contains Addenda Addendum by JEANNE TSANG LPN on 15 April 2015 10:55:44 CDT done, patient notified. From: REID PAT ([facility] Rad Tech) To: ANITA Vazquez Nurse; Sent: 04/15/2015 10:00:25 CDT Subject: *Phone Message Caller is: ( x ) Patient ( ) Mother ( ) Father ( ) Spouse ( ) Daughter ( ) Son ( ) Pharmacy ( ) Other: Physician: Patient MRN #: Reason for Call: S: Patient dropped off a Fit Test at the [facility] this morning. There is no order in the queue. B: A: R: Please place order so it can be checked into lab. Message: Advice/Action: Source used: ( ) Verbalizes [...] back cell phone number ( ) Source: [facility] POWERCHART Document Id: [id number] documented in this encounter Plan of Treatment Not on filedocumented as of this encounter Procedures Procedure Name Priority Date/Time Associated Comments Diagnosis LIPID PANEL, S Routine 04/14/2015 7:59 Results fo r this AM CDT procedure are i n the results section. GLUCOSE, P Routine 04/14/2015 7:59 Results for this AM CDT procedure are i n the results section. ASPARTATE Routine 04/14/2015 7:59 Results for this AMINOTRANSFERASE (AST), AM CDT proc edure are in S/P the results section. documented in this encounter Results AST (Aspartate Aminotransferase) (04/14/2015 7:59 AM CDT) [facility] g[facility] Method Time Signature Aspartate 20 8 - 43 POWERCHART Aminotransferase UNITL (AST), S Specimen (Source) Anatomical Collection Method Collection Time Re ceived Time Location / / Volume Laterality Blood 04/14/2015 7:59 AM CDT Opal Vazquez M.D. LAB BLOOD ADD-ON Performing Organization Address City/State/ZIP Code Phon e Number POWERCHART (ABNORMAL) Lipid Panel (04/14/2015 7:59 AM CDT) P athologist Signature Calculated LDL 223 (H) <=129 MGDL POWERCHART Comment: 2014 National [...] esting for FH and FDB is available [facility]: FH/ADH Genetic Reflex Coll[place] el (test ADHP). Acquired (non-genetic) causes of markedly increased LDL cholesterol include cholestatic liver disease due to the presence of LpX. If a genetic form of hypercholesterolemia is suspected, family studies including biochemical testing fo r lipids (total cholesterol,triglycerides, LDL cholesterol and HDL cholesterol) are recommended. ??Please contact the laboratory at or the on-line test catalog at [facility] for information about how to order these ilan ts or to speak with a genetic counselor. Further interpretation would require clinical information. Total Cholesterol/HDL Ratio 7.98 PO WERCHART Cholesterol, Total 327 (H) <=199 MGDL POWERCHART Comment: 2014 National Lipid Association recommen dations for Total Cholesterol in adults ages 18 and up: Desirable <200 mg/dL Borderline high 200-239 mg/dL High 240 mg/dL 2014 National Lipid Association recommen dations for Total Cholesterol in children ages 2 to 17. Acceptable <170 mg/dL Borderline High 170-199 mg/dL High 200 mg/dL HX HDL 41 (L) >=50 MGDL POWERCHART Comment: 2014 National Lipid Association recommen dations for HDL-C in adults ages 18 and up: Low <40 mg/dL (Men) Low <50 mg/dL (Women) 2014 National Lipid Association recommen dations for HDL-C in children ages 2 to 17. Low <40 mg/dL Borderline Low 40-45 mg/dL Acceptable >45 mg/dL Triglycerides 314 (H) <=149 MGDL POWERCHART Comment: 2014 National [...] Time Location / / Volume Laterality Blood 04/14/2015 7:59 AM CDT Opal Vazquez M.D. LAB BLOOD ADD-ON Performing Organization Address City/State/ZIP Code Phon e Number POWERCHART Glucose (04/14/2015 7:59 AM CDT) P athologist Signature Glucose 89 70 - 139 POWERCHART MGDL Specimen (Source) Anatomical Collection Method Collection Time Re ceived Time Location / / Volume Laterality Blood 04/14/2015 7:59 AM CDT Opal Vazquez M.D. LAB BLOOD ADD-ON Performing Organization Address City/State/ZIP Code Phon e Number POWERCHART documented in this encounter Visit Diagnoses Not on filedocumented in this encounter Additional Health Concerns Assessment Noted Time PHQ-9 Depression Total Score: 1 04/08/2015 9:22 AM CDT documented as of this encounter
--- OUTSIDE RECORDS SUMMARY | 2022-06-22 11:40 | XMS_ITS | Encounter Summary ---
:1940 Author Organization [facility] Address [address] [place] [address] Care Team Providers Name Role Phone Unavailable Primary Care Provider Unavailable Encounter Details Date Type Department Care Team Description 04/15/2008 Hospital Encounter HX NO MAPPING Opal Vazquez M.D. [address] [place] [phone] (Wo rk) Social History Tobacco [...] How often do you attend confucianism or bahai Patient refused 05/13/2021 services? Do you belong [...] Diagnosis Comme nts DX CHEST AP OR PA Routine 04/15/2008 12:23 PM Res ults for this AND LATERAL 2 VIEWS CDT procedur e are in the results section. documented in this encounter Results DX Chest AP or PA and Lateral 2 Views (04/15/2008 12:23 PM CDT) Anatomical Region Laterality Modality Chest N/A Radiographic Imaging Specimen (Source) Anatomical Collection Method Collection Time Re ceived Time Location / / Volume Laterality 04/15/2008 12:23 PM CDT Narrative 04/15/2008 12:23 PM CDT Originally Signed By UNKNOWN, PERSONNEL Reason for exam: PRE OP,TOBACCO USE FINDINGS: The heart is normal in size an d the lungs are clear. ?? CONCLUSION: ??Normal chest. Procedure Note ProviderNeil M.D. - 01/09/2017F ormatting of this note might be different from the original. Originally Signed By UNKNOWN, PERSONNEL Reason for exam: PRE OP,TOBACCO USE FINDINGS: The heart is normal in size an d the lungs are clear. CONCLUSION: Normal chest. Historical Provider IMG DIAGNOSTIC IMAGING PROCE DURES documented in this encounter Visit Diagnoses Not on filedocumented in this encounter
--- OUTSIDE RECORDS SUMMARY | 2022-06-22 11:40 | XMS_ITS | Encounter Summary ---
:1940 Author Organization [facility] Address [address] [place] [address] Care Team Providers Name Role Phone Unavailable Primary Care Provider Unavailable Encounter Details Date Type Department Care Team Description 11/06/2012 Hospital En[facility] Lashawn Vazquez M.D. [address] [place], [place] [address] (Wo rk) Social History [...] 05/13/2021 relatives? How often do you attend cheondoism or episcopal Patient refused 05/13/2021 services? Do you belong to any clubs or organizations such as Patient refused 05/13/2021 cheondoism groups, unions, fraternal or athletic groups, or [...] or slept in a intermediate (including now)? Sex Assigned at Date Recorded Female 02/25/2018 7:29 PM CDT documented as of this encounter Last Filed Vital Signs Vital Sign Reading Time Taken Comments Blood Pressure 120/76 11/06/2012 8:37 AM CDT Pulse 76 11/06/2012 8:37 AM CDT Temperature - - Respiratory Rate 16 11/06/2012 8:37 AM CDT Oxygen Saturation - - Inhaled Oxygen Concentration - - Weight 72.6 kg (160 lb 0.9 oz) 11/06/2012 8:37 AM CDT Height 163 cm (5' 4.17) 11/06/2012 8:37 AM CDT Body Mass Index 27.33 11/06/2012 8:37 AM CDT documented in this encounter H&P Notes Opal Vazquez M.D. - 11/06/2012 8:12 AM CDT [id number] CHIEF COMPLAINT/REASON FOR VISIT Annual examination HISTORY OF PRESENT ILLNESS 72-year-old female presents to the clinic for annual evaluation. Is not fasting today but would consider coming in on the . Is not interested in all of her regular health care maintenance but will consider some options in the future. States she is doing quite well. Does have advance directives available at the hospital and is DNR DNI. EMR reviewed. Please see the chart. CURRENT MEDICATIONS 1. Omeprazole 20 mg orally each day currently being held. 2. Niacin each day. 3. Fish oil each day. 4. Calcium with vitamin D, dose is not clear, each day will discontinue this product. 5. Ocuvite each day. 6. Vitamin D 3, 5000 international units daily. 7. Super B complex. 8. Magnesium with chelated zinc. 9. Glucosamine chondroitin. 10. Ibuprofen 200 mg 2 tablets daily. 11. Beano when needed. ALLERGIES No known drug allergies SYSTEMS REVIEW Constitutional: Slow weight gain over the years. No fevers, chills or night sweats. No change in herenergy. Eyes: No blurred or double vision and no eye pain. Last ophthalmic examination 6 months ago has appointment coming up on the . Has cataracts which are being followed closely. ENT: No hearing loss, no tinnitus, no ear pain, no dizziness, no nasal congestion, no sore throat and no hoarseness. Last dental examination 10/2012. CV: No palpitations, no ankle edema, no true claudication and no chest pain. See the chart. Respiratory: No cough, no wheezing, no hemoptysis and no shortness of breath. GI: No abdominal pain. No problems with dysphagia, hematemesis or daily bowel regimen. No hematochezia and no problems with hemorrhoids. Has episodic heartburn for which she takes Tums tablets primarily related to sleep and has been worse during the holiday season. : No pain with urination. No vaginal bleeding or spotting. No vaginal discharge. No history of abnormal Pap smears. No concerns regarding sexually transmitted diseases. Has some occasional increased urinary frequency with discomfort and this follows intercourse. Does respond to episodic cranberry jui ce. Musculoskeletal: Chronic back, neck and joint pain. No swelling or stiffness. No myalgias or weakness. Integumentary: No changes in hair or nails. Irritated skin lesion on the left hinduism which has been present for 2 years for which she is applying over the counter herbal oils. Neuro: No history of syncopal events or seizures. Psychiatric: No history of anxiety or depression. No problems with sleep. Endocrine: No history of diabetes or thyroid problems. Hematologic/lymphatic: History of anemia as a child but not since that time. No bleeding. Allergic/immunologic: Please see above. PAST MEDICAL/SURGICAL HISTORY Surgeries 1. Hemorrhoidectomy in 2003. 2. Arthroscope of the right knee 2004 secondary to a meniscal tear. 3. Tubal ligation in 1990 4. Bunionectomy the left 2003 on the right 2004. 5. Varicose vein striping April 22, 2008. 6. Pin removed from her left foot in the office with Dr. Adams 10/21/2012. Other hospitalization 1. vaginal delivery. Other health problems 1. Episodic pain secondary to some degenerative joint disease, currently stable. 2. Varicose veins currently stable. 3. Ear pruritus currently stable. 4. GERD. 5. Hyperlipidemia. 6. Limited health care maintenance 7. Vaginal prolapse PREVENTIVE SERVICES Tobacco: None. Mammogram: 2002 declines. Pap smear: Nonapplicable secondary to stated age. Chlamydia: Not applicable secondary to stated age. Colon screen: 07/2002 [facility] with Dr. Baum. Declines colonoscopy this year or FIT card. Depression: No. Asthma: No. Lipids: 09/2001 advised, planned for 11/18/2012. Tetanus: 08/2006. Pneumovax 03/12/2008. Influenza: 05/2012 [facility]. DEXA scan: Declined. SOCIAL HISTORY Alcohol: Couple times per month. Other social drugs: None. Caffeine: 3 cup of coffee per day, soda 3times per week, few herbal tea per month. Seatbelt: Wears. Diet: Tries to follow a healthy diet. Last breast exam: 2009. Calcium intake: lower limits of normal. Exercise: No formal program. FAMILY HISTORY Mother: secondary to motor vehicle accident in his 60s. Father: secondary to abdominal aortic aneurysm in 1980. Also had coronary artery disease. Brothers and sisters: at age 6 weeks secondary to malnutrition. Sisters times 2 both with hypertension. Sister with hyperlipidemia. Maternal aunt with TB VITAL SIGNS Height 163 Weight 72.6 Temperature 36.6 Respirations 16 Pulse 76 Blood pressure 120/76 PHYSICAL EXAM GENERAL: Neatly dressed and well groomed and in no apparent distress. SKIN: Solar changes in sunward distribution with a scaly lesion nearly a centimeter on the left hinduism. HEAD: No trauma, tenderness or masses. EYES: Conjunctiva clear. PERRL. Full EOM. Funduscopic exam suggests early cataracts. ENT: External ears and nose without gross abnormalities. Tympanic membranes are forrester. Subjectively intact hearing. Nasal mucosa membranes pink and moist. Septum is midline. Oral: No exudates. Teeth in poor condition with evidence of periodontal disease. No pharyngeal erythema or exudates. Neck supple.Trachea midline. LYMPH NODES: Negative evaluation of neck, axilla and groin. THYROID: No thyroid masses, tenderness or enlargement. BREASTS: Some fibrocystic changes but not tender. No galactorrhea. Negative evaluation of the axilla. [...] No organomegaly. PELVIS: No bony abnormalities. RECTUM: Patent anus. Good sphincter tone. Circumferential hemorrhoids but no evidence of thrombosis.Hemoccult negative stool in the vault. GENITALIA: External genitalia appropriate for stated age. Urethral meatus free from lesions. Supple vaginal vault. Multiparous appearing cervix with some uterine descensus about grade 1 to 2. Uterus freely mobile, no nodularity. Adnexal region free from nodules and nontender. No tenderness with either speculum or bimanual exam. SPINE: Range of motion consistent with stated age. Degenerative changes consistent with patient's stated age body habitus. JOINTS: Range of motion consistent with stated age. Degenerative changes consistent with patient's stated age body habitus. EXTREMITIES: Nails and digits reflect degenerative changes with evidence of a recent pin pulling on the right foot. Range of motion of head, neck, ribs, right and left upper extremity, right and left lower extremity consistent with the patient's stated age. GAIT: Smooth easy. MENTAL: Oriented x 3. NEURO: Reflexes 2+ in triceps, biceps, knees and ankles. IMPRESSION/REPORT/PLAN 1. Annual exam 2. Vitamin D deficiency 3. Varicose veins 4. Changed skin 5. Chronic pain syndrome 6. Hyperlipidemia 7. GERD 8. Degenerative joint disease 9. Family history abdominal aortic aneurysm PLAN: Discussed her medications in detail. She will consider changing her regimen. Will recommend checking CBC, basic metabolic profile, AST, urinalysis, today. Will arrange for lipid profile in the near future. Will arrange for abdominal aortic aneurysm sometime in the near future. Given the locationof her skin lesion will arrange appointment with Dr. Baum Surgeon to remove and or biopsy site on the left hinduism given the duration and the finding. Signs and symptoms to lead to urgent evaluation are reviewed. Reviewed exercise, cholesterol, diet/weight loss, calcium intake, alcohol use, immunizations, tobacco use, caffeine use, self-breast exams, mammography, colonic studies including colonoscopyor hemoccult testing, hormone replacement therapy as appropriate, seatbelt use, back care, depression, eye exams and other issues. Follow up if any change occurs or as noted. She is comfortable with this plan. Opal Vazquez M.D./clf Electronically Signed By: OPAL VAZQUEZ MD On: 11/08/2012 12:21 PM Modified by and Electronically Signed by: OPAL VAZQUEZ MD On: 11/08/2012 12:21 PM Source: [facility] MHSDOLBEYNONRADSYS Document Id: [id number] documented in this encounter Nursing Notes Eugenia Ching L.P.NBrant - 03/23/2015 10:09 AM CDT Pre-op faxed to [facility] Pre-op information including office note from 03/19/2015, lab work, sleep apnea screening, and chest x-ray faxed to [facility] for patient's upcoming surgery on 03/25/2015. Electronically Signed By: EUGENIA CHING LPN On: 03/23/2015 10:10 AM Source: [facility] [place] [facility] Document Id: [id number] Roxann Tsang L.P.NBrant - 11/08/2012 4:38 PM CDT Labs 4-3-13 Result card sent. Electronically Signed By: ROXANN TSANG LPN On: 11/08/2012 04:38 PM Source: [facility] [place] [facility] Document Id: [id number] documented in this encounter Miscellaneous Notes Telephone Encounter - Opal Vazquez M.D. - 11/22/2012 12:00 AM CDT [id number] Patient's cholesterol is elevated. Would recommend a cholesterol lowering medication. Would recommend following up in the clinic to discuss this finding. Card is sent to patient in regards to this issue. Opal Vazquez M.D./tamika Electronically Signed By: OPAL VAZQUEZ MD On: 11/25/2012 12:24 PM Modified by and Electronically Signed by: OPAL VAZQUEZ MD On: 11/25/2012 12:24 PM Source: [facility] MHSDOLBEYNONRADSYS Document Id: [id number] Miscellaneous - Opal Vazquez M.D. - 11/06/2012 12:34 PM CDT Ambulatory Depart Summary [address] [address] Visit Information Name: LIZZ CONTRERAS [facility] Number: [id number] Visit Date: 11/06/2012 12:33:59 Attending Provider: OPAL VAZQUEZ MD Primary Care [...] medications. Medication/Strength Dose Route Frequency Indications/Special Instructions/Comments *omeprazole (omeprazole 20 mg oral delayed release capsule) 20 mg Oral once a day multivitamin (Multiple Vitamins oral tablet) niacin (niacin) omega-3 polyunsaturated fatty acids (Fish Oil oral capsule) calcium-vitamin D (Calcium 600+D) * You have let us know that you are not taking this medication as listed. Please talk with your primary care provider or the health care provider who prescribed the medication as soon as possible. Attention: If you have any medications at home that are not on this list, DO NOT take them until youcontact your provider for clarification. Additional Information: Source: [facility] POWERCHART Document Id: [id number] Miscellaneous - Opal Vazquez M.D. - 11/06/2012 12:34 PM CDT Ambulatory Patient Summary [id number] [place] [address] Visit Information Name: LIZZ CONTRERAS [facility] Number: [id number] Current Date: 11/06/2012 12:34:00 Physicians Attending Provider: OPAL VAZQUEZ MD Primary Care Provider: OPAL VAZQUEZ MD Your Medications Here is a list of your medications. It is important to take your medications as directed. Use a pillbox or chart to help remind you to take your medications. Please let your doctor or nurse know if you have problems taking your medications. Medication/Strength Dose Route Frequency Indications/Special Instructions/Comments *omeprazole (omeprazole 20 mg oral delayed release capsule) 20 mg Oral once a day multivitamin (Multiple Vitamins oral tablet) niacin (niacin) omega-3 polyunsaturated fatty acids (Fish Oil oral capsule) calcium-vitamin D (Calcium 600+D) * You have let us know that you are not taking this medication as listed. Please talk with your primary care provider or the health care provider who prescribed the medication as soon as possible. Attention: If you have any medications at [...] Upcoming Appointments Date Time Location Reason Provider 11/08/2012 08:30 [facility] Ultrasound family hx of AAA 11/18/2012 14:00 [facility] Surgeon skin lesion left hinduism to be removed or biopsied BautistaBraden hawkins MD 11/22/2012 08:45 [facility] Lab Your Goals/Additional instructions: Source: [facility] POWERCHART Document Id: [id number] Miscellaneous - Roxann Tsang L.P.N. - 11/06/2012 8:37 AM CDT Adult Lead Man Over All Dies In [employer] Intake/History Adult Lead Man Over All Dies In [employer] Intake/History Entered On: 11/06/2012 8:41 CDT Performed On: 11/06/2012 8:37 CDT by ROXANN TSANG LPN Intake Chief Complaint : physical Temperature Core : 36.6DegC(Converted to: 97.9DegF) Peripheral Pulse Rate : 76/min Respiratory Rate : 16/min Systolic Blood Pressure : 120mmHg Diastolic Blood Pressure : 76mmHg NIBP Mean : 91mmHg BP Location : Left upper extremity Blood Pressure Cuff Size : Regular Height : 163cm(Converted to: 5ft 4inch(es), 64.17inch(es)) Actual Weight : 72.6kg(Converted to: 160lb 1oz) Dosing Weight Clinic : 72.60kg Clinic BSA : 1.81 Body Mass Index : 27.33kg/m2 ROXANN TSANG LPN - 11/06/2012 8:37 CDT General Info Languages : Fijian ROXANN TSANG LPN - 11/06/2012 8:37 CDT Subjective Pain Symptoms : No ROXANN TSANG LPN - 11/06/2012 8:37 CDT Dependent Habits Tobacco Use/Currently Using : No Exposure to Tobacco Smoke : Other: former Smoking Status : Former smoker ROXANN TSANG LPN - 11/06/2012 8:37 CDT Allergy Allergies (Active) NKA Estimated Onset Date: Unspecified ; Created By: OPAL VAZQUEZ MD; Reaction Status: Active ; Category: Drug ; Substance: NKA ; Type: Allergy ; Updated By: OPAL VAZQUEZ MD; Reviewed Date: 11/06/2012 8:36 CDT Source: [facility] POWERCHART Document Id: [id number] Miscellaneous - Roxann Tsang L.P.NBrant - 11/06/2012 8:37 AM CDT Health Assessment Health Assessment Entered On: 11/06/2012 8:42 CDT Performed On: 11/06/2012 8:37 CDT by ROXANN TSANG LPN Health Assessment Complete Health Assessment Complete or Modified : Annual Health Assessment Annual Health Assessment Completed : Yes ROXANN TSANG LPN - 11/06/2012 8:37 CDT Nutrition Nutrition Risk Factors by History Adult : None ROXANN TSANG LPN - 11/06/2012 8:37 CDT Functional Current Daily Living Assistance : None ROXANN TSANG LPN - 11/06/2012 8:37 CDT Dependent Habits Tobacco Use/Currently Using : No Smoking Status : Former smoker ROXANN TSANG LPN - 11/06/2012 8:37 CDT Psychosocial Domestic Abuse Concerns : None ROXANN TSANG LPN - 11/06/2012 8:37 CDT Advance Directive Advanced Directives : Yes (Comment: patient will bring in copy [ROXANN TSANG LPN - 11/06/2012 8:37 CDT] ) ROXANN TSANG LPN - 11/06/2012 8:37 CDT Educ Needs Learning Style Preference Adult Grid Patient : Printed materials Family : Printed materials ROXANN TSANG LPN - 11/06/2012 8:37 CDT [email or web address] Document Id: [id number] documented in this encounter Plan of Treatment Not on filedocumented as of this encounter Procedures Procedure Name Priority Date/Time Associated Diagnosis Comme nts AUTOMATED Routine 11/06/2012 9:48 AM Results f or this DIFFERENTIAL, B CDT procedure ar e in the results section. 1,25-DIHYDROXYVITAM Routine 11/06/2012 9:48 AM Re sults for this IN D, S CDT procedure are i n the results section. CBC WITH Routine 11/06/2012 9:48 AM Results f or this DIFFERENTIAL, B CDT procedure ar e in the results section. BASIC METABOLIC Routine 11/06/2012 9:48 AM Result s for this PANEL, S/P CDT procedure are i n the results section. DIPSTICK, U Routine 11/06/2012 9:12 AM Results f or this CDT procedure are i n the results section. documented in this encounter Results Automated Differential (11/06/2012 9:48 AM CDT) P athologist Signature Neutro % 53.1 34.0 - 71.1 POWERCHART Lymphocytes % 36.0 19.3 - 51.7 POWERCHART HX [place] % 9.0 4.7 - 12.5 POWERCHART HX Eos % 1.4 0.7 - 5.8 POWERCHART HX Baso % 0.5 0.1 - 1.2 POWERCHART Specimen Anatomical Collection Method Collection Time Receive d Time (Source) Location / / Volume Laterality Blood 11/06/2012 9:48 AM 3 9:48 CDT AM CDT Opal Vazquez M.D. LAB BLOOD ADD-ON Performing Organization Address City/State/ZIP Code Phon e Number POWERCHART CBC with Differential (11/06/2012 9:48 AM CDT) P athologist Signature Leukocytes 5.8 3.4 - 10.5 POWERCHART X109L Erythrocytes 4.50 3.90 - POWERCHART 5.03 P1071D Hemoglobin 13.7 12.0 - POWERCHART 15.5 GDL Hematocrit 39.1 34.9 - POWERCHART 44.5 MCV 86.9 82.0 - POWERCHART 98.0 FL Platelet Count 210 150 - 450 POWERCHART X109L HX RDW 12.8 11.9 - POWERCHART 15.5 HXDifferential? Auto POWERCHART Specimen (Source) Anatomical Collection Method Collection Time Re ceived Time Location / / Volume Laterality Blood 11/06/2012 9:48 AM CDT Opal Vazquez M.D. LAB BLOOD ADD-ON Performing Organization Address City/State/ZIP Code Phon e Number POWERCHART 1,25-Dihydroxyvitamin D (11/06/2012 9:48 AM CDT) [facility] Signature 1, 25 28 18 - 78 POWERCHART DIHYDROXYVITAMIN D, PGML S Comment: Test Performed by: [facility] [place] [address] Bioinformatics Scientist: Vernon wall III, M.D. Specimen (Source) Anatomical Collection Method Collection Time Re ceived Time Location / / Volume Laterality Blood 11/06/2012 9:48 AM CDT Opal Vazquez M.D. LAB BLOOD ADD-ON Performing Organization Address City/[facility]/ZIP Code Phon e Number POWERCHART (ABNORMAL) BMP (Basic Metabolic Panel) (11/06/2012 9:48 AM CDT) P athologist Signature BUN (Blood Urea 15 6 - 20 POWERCHART Nitrogen), S MGDL Creatinine 0.7 0.7 - 1.2 POWERCHART MGDL Glucose 95 POWERCHART Potassium, S 4.7 3.5 - 4.8 POWERCHART MMOLL Sodium, S 146 (H) 135 - 145 POWERCHART MMOLL Chloride, S 108 100 - 108 POWERCHART MMOLL CO2 Total 28 22 - 29 POWERCHART MMOLL Calcium, Total, 10.0 8.5 - 10.5 POWERCHART S MGDL HXeGFR (MDRD) >60 MLMIN POWERCHART eGFR >60 MLMIN POWERCHART Black/ Specimen (Source) Anatomical Collection Method Collection Time Re ceived Time Location / / Volume Laterality Blood 11/06/2012 9:48 AM CDT Opal Vazquez M.D. LAB BLOOD ADD-ON Performing Organization Address City/[facility] Code Phon e Number POWERCHART (ABNORMAL) Dipstick, Urine (11/06/2012 9:12 AM CDT) Patholo gist Method Time Signature Source Clean Void POWERCHART Urine HXUr Color Yellow POWERCHART Appearance Clear POWERCHART Glucose Negative Negative POWERCHART HXBILIRUBIN Negative Negative POWERCHART Ketones, QL(U) Negative Negative POWERCHART Specific 1.015 1.020 POWERCHART [place], POCT, U HXBLOOD Negative Negative POWERCHART pH, POCT, Urine 7.0 5.0 - 8.0 POWERCHART Protein, Ur, Dip Negative Negative POWERCHART Urobilinogen 0.2 0.2 - 1.0 POWERCHART HXNITRITE Negative Negative POWERCHART Leukocyte Small (A) Negative POWERCHART Esterase Specimen (Source) Anatomical Collection Method Collection Time Re ceived Time Location / / Volume Laterality Urine 11/06/2012 9:12 AM CDT Opal Vazquez M.D. LAB URINE ORDERABLES Performing Organization Address City/State/ZIP Code Phon e Number POWERCHART documented in this encounter Visit Diagnoses Not on filedocumented in this encounter
[2022-06-22 12:00] VITALS: BP 128/87; PULSE 68; RESP 16; O2SAT 98
== END 2022-06-22 12:35 | disposition home or self-care (01) ==
PROVIDERS: Emergency Provider Family Medicine; PCP Nurse Practitioner Family
DX: S01.01XA Laceration without foreign body of scalp, initial encounter (principal); W01.10XA Fall on same level from slipping, tripping and stumbling with subsequent striking against unspecified object, initial encounter
CPT/HCPCS: 12001; 70450; 99284

== ENCOUNTER 2022-06-23 10:08 | Emergency (ER) | payer MEDICARE, BC, SELFPAY ==
[2022-06-23 10:18] VITALS: BP 132/75; PULSE 68; RESP 18; TEMP 36.1; O2SAT 97; BMI 23.6
--- NOTE | 2022-06-23 10:41 | CRLHL7_ITS ---
For Patients: As a result of the Century Cures Act, medical imaging exams and procedure reports are released immediately into your electronic medical record. You may view this report before your referring provider. If you have questions, please contact your health care provider. INDICATION: FALL AGAIN, PT FELL YESTERDAY HIT BACK OF HEAD. COMPARISON: 06/22/2022 TECHNIQUE: A CT volumetric acquisition was performed of the brain without IV contrast. Please note that all CT scans at this facility use dose modulation, iterative reconstruction, and/or weight-based dosing when appropriate to reduce radiation dose to as low as reasonably achievable. FINDINGS: Chronic white matter changes. No hydrocephalus. No additional hemorrhage. No midline shift or herniation. No fracture. Mucous retention cyst within the right sphenoid sinus. IMPRESSION: No change compared to the prior study. Please note that all CT scans at this facility use dose modulation, iterative reconstruction, and/or weight-based dosing when appropriate to reduce radiation dose to as low as reasonably achievable. Dictated by Mark Najera MD @ 06/23/2022 11:31:38 AM (Electronically Signed)
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
--- NOTE | 2022-06-23 10:50 | ED.NURSE ---
Patient to radiology for CT scan.
--- OUTSIDE RECORDS SUMMARY | 2022-06-23 11:03 | XMS_ITS | Encounter Summary ---
:1940 Author Organization [facility] Address [address] [place] [address] Care Team Providers Name Role Phone Elsewhere, Pcp Primary Care Provider Unavailable Reason for Visit Reason Comments Med Refill Encounter Details Date Type Department Care Team Description 03/21/2022 Refill Department of Family Medicine, Jeancarlos Sherman P.A.-C. Med Refill [facility], in [address] [place] [phone] [place] [address] [place] [address] [phone] Social History Tobacco Use Types Packs/Day Years [...] 05/13/2021 relatives? How often do you attend restorationist or voodoo Patient refused 05/13/2021 services? Do you belong to any clubs or organizations such as Patient refused 05/13/2021 restorationist groups, unions, fraternal or athletic groups, or [...] PCP Elsewhere; pt switched to clinic in [place] for care (see refill encounter from 12/16/21). documented in this encounter Plan of Treatment Not on filedocumented as of this encounter Visit Diagnoses Not on filedocumented in this encounter Care Teams Motor Teacher Relationship Specialty Start Date End Date Elsewhere, Pcp PCP - General Internal Medicine 12/16/21 documented as of this encounter
--- OUTSIDE RECORDS SUMMARY | 2022-06-23 11:03 | XMS_ITS | Encounter Summary ---
:1940 Author Organization [facility] Address [address] [place] [address] Care Team Providers Name Role Phone Jeancarlos Oquendo P.A.-C. Primary Care Provider [phone] Reason for Referral Physical Therapy (Routine) - Closed Specialty Diagnoses / Procedures Referred By Contact Refer red To Contact Diagnoses Strain Hip Flexor Initial Right Jeancarlos Oquendo P.A.-C. [address] [place] [address] Referral ID Status Reason Start Date Expiration Date Visits V isits Requested Authorized [id number] Closed Service not 05/13/2021 05/13/2022 99 99 available in [facility] Reason for Visit Reason Comments Follow-up groin muscle pain on right s scott. Appointment Request (Routine) - Closed Specialty Diagnoses / Procedures Referred By Contact Refer red To Contact Family Medicine Referral ID Status Reason Start Date Expiration Date Visits Requ ested Visits Authorized [id number] Closed 2021 2022 1 1 Encounter Details Date Type Department Care Team Description 05/13/2021 Office Visit Department of Jeancarlos Alanis St rain Hip Flexor Medicine, [place] Initial Right (Primary Clinic, in [place], [address] [facility] [address]) [place], [place] [address] [facility] [address] [place], [place] [phone] (Work) [phone] Social History Tobacco Use Types Packs/Day Years [...] How often do you attend buddhism or temple Patient refused 05/13/2021 services? Do you belong [...] y documented in this encounter Care Teams Ice Cream Server Relationship Specialty Start Date End Date Jeancarlos Oquendo P.A.-C. PCP - General Family Medicine 09/01/19 12/15/[address] [place] [phone] documented as of this encounter
--- OUTSIDE RECORDS SUMMARY | 2022-06-23 11:03 | XMS_ITS | Encounter Summary ---
:1940 Author Organization [facility] Address [address] [place] [address] Care Team Providers Name Role Phone Elsewhere, Pcp Primary Care Provider Unavailable Reason for Visit Reason Comments Med Refill Encounter Details Date Type Department Care Team Description 12/16/2021 Refill Department of Family Medicine, Jeancarlos Sherman P.A.-C. Med Refill [facility], in [address] [place] [phone] [place] [address] [place] [address] [phone] Social History Tobacco Use Types Packs/Day Years [...] How often do you attend rastafari or protestant Patient refused 05/13/2021 services? Do you belong [...] or slept in a usp (including now)? Education Answer Date Recorded What [...] she is switching to the clinic in [place] for her care now. Please change PCP [...] on filedocumented in this encounter Care Teams Assistant Director Of Residence Life Relationship Specialty Start Date End Date Elsewhere, Pcp PCP - General Internal Medicine 12/16/21 documented as of this encounter
--- OUTSIDE RECORDS SUMMARY | 2022-06-23 11:03 | XMS_ITS | Clinical Summary ---
:1940 Author Organization [facility] Address [address] [place] [address] Care Team Providers Name Role Phone Elsewhere, Pcp Primary Care Provider Unavailable Source Comments Patient records contain information from all sites at [facility]. For routine questions regarding patient records, call [phone] during business hours, M-F 8:00 AM - 5:00 PM Central Time. Record requests for emergency care only can be directed to [phone] at any time.[facility] Allergies Active Allergy Reactions Severity Noted Date Comments Latex Other (see comments) 04/29/2018 Only re acts to powdered latex gloves Medications Medication Sig Dispensed Refills Start Date End Date Status vitamin Take 1 tablet by 0 Act alisa A,C,N-felmpt-akzqhrkt mouth 2 (two) (OCUVITE W/LUTEIN) times a day. 1,000 Unit-200 mg-60 Unit-2 mg tablet cholecalciferol, Take 1,000 Units 0 Active vitamin D3, by mouth daily. (cholecalciferol) 1,000 Unit tablet MAGNESIUM ORAL Take by mouth 0 A ctive daily. omega 4-com-kwc-fish Take by mouth 0 Active oil 1,000 [...] How often do you attend synagogue or judaism Patient refused 05/13/2021 services? Do you belong [...] slept in a senior care (including now)? Education Answer Date Recorded What [...] CDT Oxygen Saturation 97% 10/02/2019 9:37 AM TIME STUDY STATISTICIAN Inhaled Oxygen Concentration - - Weight 66.7 [...] e / Group Dates MEDICARE MEDICARE A [id number] 2003-Pres [address] [place] [address] BLUE CROSS BCBS PAMUNKEY [id number] 2016-Pres [phone] PO LISBETH X Cost Share BLUE SHIELD BLUE COST ent [phone] [address] [place] [id number] [phone] [facility] nikita Barreto (Work) [address] [place] [address] Advance Directives For more information, please contact: [phone] Documents on File Type Date Recorded Patient Line Construction Superintendent Explanati on Advance Directives 03/26/2018 10:40 AM [facility] Directive Advance Directives 03/26/2018 10:40 AM Anatomical Bequest to [facility] Advance Directives 04/30/2010 12:00 AM Legacy doc ument. See document viewer. Healthcare Agents on File Name Relationship Healthcare Agent Communication Relationship Sofía Mireles Daughter Health Care Agent Nichol Cain Daughter [facility] [phone] Care Agent (Mobile) Ion Contreras Son [facility] Care Agent (Home) Care Teams Communication Manager Relationship Specialty Start Date End Date Elsewhere, Pcp PCP - General Internal Medicine 12/16/21
--- OUTSIDE RECORDS SUMMARY | 2022-06-23 11:04 | XMS_ITS | Encounter Summary ---
:1940 Author Organization [facility] Address [address] [place] [address] Care Team Providers Name Role Phone Jeancarlos Oquendo P.A.-C. Primary Care Provider [phone] Encounter Details Date Type Department Care [...] 05/13/2021 relatives? How often do you attend hindu or druze Patient refused 05/13/2021 services? Do you belong to any clubs or organizations such as Patient refused 05/13/2021 hindu groups, unions, fraternal or athletic groups, or [...] on filedocumented in this encounter Care Teams Nurse Obgyn Relationship Specialty Start Date End Date Jeancarlos Oquendo P.A.-C. PCP - General Family Medicine 09/01/19 12/15/21 [address] [place] [phone] documented as of this encounter
--- OUTSIDE RECORDS SUMMARY | 2022-06-23 11:04 | XMS_ITS | Encounter Summary ---
:1940 Author Organization [facility] Address [address] [place] [address] Care Team Providers Name Role Phone Jeancarlos Oquendo P.A.-C. 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 [facility] Procedures LUISITO MOHS 1-4 sites [address] [place] [address] Referral ID Status Reason Start Date Expiration Date Visits Requ ested Visits Authorized [id number] Closed 02/09/2020 02/08/2021 1 1 Encounter Details Date Type Department Care Team Description 02/09/2020 Orders Only Department of Mark Munoz Malignant Neoplasm Of Dermatology in M.[facility]rant Ear Basal Cell [place], [place] [address] [facility] Carcinoma Left [address] [place], [place] (Primary Dx) [place] [phone] Social History Tobacco Use Types Packs/Day Years [...] How often do you attend islam or zoroastrianism Patient refused 05/13/2021 services? Do you belong to any clubs or organizations such as Patient refused 05/13/2021 islam groups, unions, fra[employer], LLC or athletic groups, or school groups? How [...] Name Type Priority Associated Diagnoses [facility] 1-4 sites Dermatology Routine Malignant Neoplasm Of Expected: 02/23/2020 Ear Basal Cell Carcinoma (Ap proximate), Left Expires: 2022 documented as of this encounter Visit Diagnoses Diagnosis Malignant Neoplasm Of Ear Basal Cell Car cinoma Left - Primary documented in this encounter Care Teams Woodworking Shop Hand Relationship Specialty Start Date End Date Jeancarlos Oquendo P.A.-C. PCP - General Family Medicine 09/01/19 12/15/21 [address] [place] [phone] documented as of this encounter
--- OUTSIDE RECORDS SUMMARY | 2022-06-23 11:04 | XMS_ITS | Encounter Summary ---
:1940 Author Organization [facility] Address [address] [place] [address] Care Team Providers Name Role Phone Jeancarlos Oquendo P.A.-C. Primary Care Provider Reason for Visit Reason Comments COVID Inquiry Encounter Details Date Type Department Care Team Description 10/19/2020 Clinical Communication Department of Mely Clark OVID Inquiry Dermatology sheila Munguia M.D. [place], [place] [address] [facility] [address] [place] [phone] Social History Tobacco Use Types Packs/Day Years [...] often do you attend roman catholic or jainism Patient refused 05/13/2021 services? Do you belong [...] on filedocumented in this encounter Care Teams Research Psychologist Relationship Specialty Start Date End Date Jeancarlos Oquendo P.A.-C. PCP - General Family Medicine 09/01/19 12/15/[address] [place] [phone] documented as of this encounter
--- OUTSIDE RECORDS SUMMARY | 2022-06-23 11:04 | XMS_ITS | Encounter Summary ---
:1940 Author Organization [facility] Address [address] [place] [address] Care Team Providers Name Role Phone Kemar Oquendo P.A.-C. Primary Care Provider [phone] Reason for Referral Outpatient (Routine) - Closed Specialty Diagnoses / Procedures Referred By Contact Refer red To Contact Dermatology Diagnoses Lesion Skin Kemar Oquendo P.A.-C. [facility] [address] [place] [address] Referral ID Status Reason Start Date Expiration Date Visits V isits Requested Authorized [id number] Closed Specialty 03/31/2021 03/31/2022 1 1 Services Required Reason for Visit Reason Comments Referral Encounter Details Date Type Department Care Team Description 03/30/2021 Clinical [facility], [place] MODE C.[facility], in [address] [address] Social History Tobacco Use Types [...] 05/13/2021 relatives? How often do you attend congregational or church Patient refused 05/13/2021 services? Do you belong to any clubs or organizations such as Patient refused 05/13/2021 congregational groups, unions, fraternal or athletic groups, or [...] 9:08 AM CDT She is scheduled with [place] Addendum Note - Kemar Oquendo P.A.-C. - [...] Primary documented in this encounter Care Teams Reconciliation Analyst Relationship Specialty Start Date End Date Kemar Oquendo P.A.-C. PCP - General Family Medicine 09/01/19 12/15/21 [address] [place] [phone] documented as of this encounter
--- OUTSIDE RECORDS SUMMARY | 2022-06-23 11:04 | XMS_ITS | Encounter Summary ---
:1940 Author Organization [facility] Address [address] [place] [address] Care Team Providers Name Role Phone Jeancarlos Oquendo P.A.-C. Primary Care Provider [phone] Encounter Details Date Type Department Care Team Description 06/02/2020 Clinical Communication Department of Leni Parrish, Internal Medicine in [facility], [place] D.N.P. [address] [place] [phone] Social History Tobacco Use Types Packs/Day Years [...] 05/13/2021 relatives? How often do you attend sikhism or mandaeism Patient refused 05/13/2021 services? Do you belong to any clubs or organizations such as Patient refused 05/13/2021 sikhism groups, unions, fraternal or athletic groups, or [...] Becki Tinoco R.N. - 06/10/2020 10:40 AM MED ASST Call returned to patient and patient reached by phone. Informed that her external lab workfrom 05/09/20 look good and per Leni Parrish, she should hold all of her supplements the morning of her procedure and her stop her fish oil 5 days prior to her procedure. Patient verbalized understanding and agreement with instructions. ASST Telephone Encounter - Nydia Ravi - 06/10/2020 8:21 AM CST [phone] please call ASST Telephone Encounter - Carina Cote, L.P.N. - 06/09/2020 9:41 AM MED ASST Left message to call back . ASST Telephone Encounter - Grisel Nevarez - 06/08/2020 5:45 PM CST Reason for Communication: Patient is returning a call to the nurse Current Phone Number: [phone] Can Nursing/Provider leave a detailed message?: yes Did the patient refuse triage through Nurse line? (for symptom based concerns): na Action Needed: Please advise Name of Medication (if relevant): ASST Telephone Encounter - Roxann Bearden L.P.N. - 06/07/2020 4:36 PM MED ASST Message left for patient to return my call. ASST Telephone Encounter - Leni Parrish APRN C.N.PBrant, D.N.P. - 06/07/2020 12:40 PM CST Reviewed lab work from external lab on 05/09 and they look good. She should hold all of her supplements the morning of her procedure. Stop fish oil 5 days prior. Please let me know if there are any other questions or concerns ASST Telephone Encounter - Carina Cote L.P.N. - 06/07/2020 12:35 PM MED ASST SUBJECTIVE CHIEF COMPLAINT / REASON FOR CALL [...] The following references were used: provider Shivani ASST Telephone Encounter - Boni Butts - 06/02/2020 5:33 PM CDT Patient called in, returning call from [facility] nurse. Unable to get a hold [...] have labs done either here or in [place] whichever is easier for her. Thank you documented in this encounter Plan of Treatment Not on filedocumented as of this encounter Visit Diagnoses Not on filedocumented in this encounter Care Teams Manager Fiber Relationship Specialty Start Date End Date Jeancarlos Oquendo P.A.-C. PCP - General Family Medicine 09/01/19 12/15/[address] [place] [phone] documented as of this encounter
--- OUTSIDE RECORDS SUMMARY | 2022-06-23 11:04 | XMS_ITS | Encounter Summary ---
:1940 Author Organization [facility] Address [address] [place] [address] Care Team Providers Name Role Phone Jeancarlos Oquendo P.A.-C. Primary Care Provider [phone] Reason for Visit Reason Comments Pre-op Exam Appointment Request (Routine) - Closed Specialty Diagnoses / Procedures Referred By Contact Refer red To Contact Community Internal Medicine Referral ID Status Reason Start Date Expiration Date Visits Requ ested Visits Authorized [id number] Closed 05/25/2020 05/25/2021 1 1 Encounter Details Date Type Department Care Team Description 06/02/2020 Comprehensive Visit Department of Leni Parrish Pre erative Exam Internal Medicine L, IN ROOM DINING SERVER, (Primary D x) in [place], C.N.PBrant, D.N.P[address] [place] [phone] Social History Tobacco Use Types Packs/Day [...] 05/13/2021 relatives? How often do you attend lutheran or christianity Patient refused 05/13/2021 services? Do you belong to any clubs or organizations such as Patient refused 05/13/2021 lutheran groups, unions, fraternal or athletic groups, or [...] Body Mass Index 24.52 10/02/2019 9:37 AM BOOKING OFFICER documented in this encounter Patient Instructions Patient [...] the left eye, 06/28/2020 right eye Location: [facility] Recent major Illnesses: None Activity [...] TID PRF VERTIGO OR DIZZINESS ??? omega 5-rmh-rcl-fish oil 1,000 mg (120 mg-180 mg) capsule Take by mouth daily. ??? polymyxin B-trimethoprim (POLYTRIM) 10,000 unit- 1 mg/mL ophthalmic solution ??? prednisoLONE acetate (PRED FORTE) 1 % ophthalmic suspension ??? UNABLE TO FIND daily. Prevagen ??? vitamin A,C,F-ykdoar-qejxrxir (OCUVITE W/LUTEIN) 1,000 Unit-200 mg-60 Unit-2 mg [...] Primary documented in this encounter Care Teams Call Center Team Leader Relationship Specialty Start Date End Date Jeancarlos Oquendo P.A.-C. PCP - General Family Medicine 09/01/19 12/15/21 [address] [place] [address] documented as of this encounter
--- OUTSIDE RECORDS SUMMARY | 2022-06-23 11:04 | XMS_ITS | Encounter Summary ---
:1940 Author Organization [facility] Address [address] [place] [address] Care Team Providers Name Role Phone Jeancarlos Oquendo P.A.-C. Primary Care Provider [phone] Encounter Details Date Type Department Care [...] 05/13/2021 relatives? How often do you attend protestant or evangelical Patient refused 05/13/2021 services? Do you belong to any clubs or organizations such as Patient refused 05/13/2021 protestant groups, unions, fraternal or athletic groups, or [...] place to sleep or slept in a detention (including now)? Education Answer Date Recorded What [...] of images acquired without order. The clini joseyln documentation to support these images can be found on the encounter gordon t produced images. Provider Not In System IMG NON RAD IMAGING PROCEDUR ES Performing Organization Address City/State/ZIP Code Phon e Number IIMS IIMS NA documented in this encounter Visit Diagnoses Not on filedocumented in this encounter Care Teams Ip Architect Relationship Specialty Start Date End Date Jeancarlos Oquendo P.A.-C. PCP - General Family Medicine 09/01/19 12/15/21 [address] [place] [phone] documented as of this encounter
--- OUTSIDE RECORDS SUMMARY | 2022-06-23 11:04 | XMS_ITS | Encounter Summary ---
:1940 Author Organization [facility] Address [address] [place] [address] Care Team Providers Name Role Phone Jeancarlos Oquendo P.A.-C. Primary Care Provider [phone] Reason for Visit Reason Comments COVID Inquiry Encounter Details Date Type Department Care Team Description 02/03/2020 Clinical Communication Department of Mark Munoz COV ID Inquiry Dermatology in [place], [place] [address] [facility] [address] [place] [phone] [phone] Social History Tobacco Use Types Packs/Day Years [...] 05/13/2021 relatives? How often do you attend scientologist or tenriism Patient refused 05/13/2021 services? Do you belong to any clubs or organizations such as Patient refused 05/13/2021 scientologist groups, unions, fraternal or athletic groups, or [...] [place] - 02/03/2020 7:46 AM CDT ([facility] and [facility] locations only: If the patient is not having symptoms and is requesting COVID-19 Nasal Swab testing only, use the process listed in the COVID19 Patient Requesting COVID PCR Test OTG COVID-19 [place] Patient Requesting COVID PCR Test). 1. Do [...] to: BERNADETTE BARRERA DESK Scheduling Contact Number: [phone] documented in this encounter Plan of Treatment Not on filedocumented as of this encounter Visit Diagnoses Not on filedocumented in this encounter Care Teams Front End Software Developer Relationship Specialty Start Date End Date Jeancarlos Oquendo P.A.-C. PCP - General Family Medicine 09/01/19 12/15/[address] [place] [phone] documented as of this encounter
--- OUTSIDE RECORDS SUMMARY | 2022-06-23 11:04 | XMS_ITS | Encounter Summary ---
:[address] [facility] Address [address] [place] [address] Care Team Providers Name Role Phone Jeancarlos Oquendo P.A.-C. 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 [facility] Procedures LUISITO MOHS 1-4 sites [address] [place] [address] Referral ID Status Reason Start Date Expiration Date Visits Requ ested Visits Authorized [id number] Closed 02/09/2020 02/08/2021 1 1 Encounter Details Date Type Department Care Team Description 03/25/2020 Procedure visit Department of Rashaad Harrell Malignant Neoplasm Of Dermatology sheila Lovell M.D., M.S. Ear Basal Cell [place], [place] [address] [facility] Carcinoma Left [address] [place] [phone] [phone] Social History Tobacco Use Types Packs/Day Years [...] 05/13/2021 relatives? How often do you attend episcopalian or methodist Patient refused 05/13/2021 services? Do you belong to any clubs or organizations such as Patient refused 05/13/2021 episcopalian groups, unions, fraternal or athletic groups, or [...] Date of Surgery: 03/25/2020 Surgeon: Dr. Harrell Broadcast Field Supervisor: Dr. Matias Location: [facility]: Floor:16 Room:[facility] Visit Type: Outpatient PostOp Diagnosis: [...] - 03/25/2020 8:00 AM CDT Referral Mark Munoz M.D. Chief Complaint Basal cell carcinoma on [...] MAR Action Action Date Dose Rate Site qfoaaerwqyc-bdrtzvyhi-VWNPDUHeifw Given 03/25/2020 9:37 AM CDT 4 mL [...] day documented in this encounter Care Teams Vamp Seamer Relationship Specialty Start Date End Date Jeancarlos Oquendo P.A.-C. PCP - General Family Medicine 09/01/19 12/15/[address] [place] [phone] documented as of this encounter
--- OUTSIDE RECORDS SUMMARY | 2022-06-23 11:04 | XMS_ITS | Encounter Summary ---
:1940 Author Organization [facility] Address [address] [place] [address] Care Team Providers Name Role Phone Jeancarlos Oquendo P.A.-C. Primary Care Provider [phone] Encounter Details Date Type Department Care [...] How often do you attend caodaism or baptist Patient refused 05/13/2021 services? Do [...] on filedocumented in this encounter Care Teams B2B Sales Professional Relationship Specialty Start Date End Date Jeancarlos Oquendo P.A.-C. PCP - General Family Medicine 09/01/19 12/15/21 [address] [place] [phone] documented as of this encounter
--- OUTSIDE RECORDS SUMMARY | 2022-06-23 11:04 | XMS_ITS | Encounter Summary ---
:[address] [facility] Address [address] [place] [address] Care Team Providers Name Role Phone Jeancarlos Oquendo P.A.-C. Primary Care Provider [phone] Encounter Details Date Type Department Care Team Description 10/12/2020 Hospital Encounter Department of Yajaira Oquendolip idemia Mixed; Laboratory Medicine Juan C Arshad Screening Examination Diabetes Mellitus in [address] [facility] [address] [address] [place], [place] [phone] (Work) [phone] Social History Tobacco Use Types Packs/Day Years [...] How often do you attend orthodox or presybeterian Patient refused 05/13/2021 services? Do you belong [...] ORAL Take by mouth daily. 0 omega 5-tor-cgr-fish oil Take by mouth daily. 0 1,000 mg (120 mg-180 mg) capsule vitamin Take 1 tablet by 0 A,C,Z-oqhmva-sfbczogt mouth 2 (two) times (OCUVITE W/LUTEIN) 1,000 [...] Hyperlipidemia M ixed Results for this AM NURSES' ASSOCIATION COUNSELOR Screening Examination proced ure are in Diabetes Mellitus the result s section. COMPREHENSIVE Routine 10/12/2020 8:02 Hyperlipidemia M ixed Results for this METABOLIC PANEL, S/P AM NURSES' ASSOCIATION COUNSELOR Screening Examinatio n procedure are in Diabetes Mellitus the result s section. documented in this encounter Results (ABNORMAL) Lipid Panel (10/12/2020 8:02 AM NURSES' ASSOCIATION COUNSELOR) P athologist Signature Cholesterol, 296 (H) mg/dL 10/12/2020 [place] Total 2:52 PM NURSES' ASSOCIATION COUNSELOR Comment: ----REFERENCE VALUE---- Desirable: < 200 Borderline high: 200 - 239 High: > or = 240 Triglycerides 110 mg/dL 10/12/2020 2:52 PM NURSES' ASSOCIATION COUNSELOR OWA T Comment: ----REFERENCE VALUE---- Normal: <150 Borderline high: 150-199 High: 200-499 Very high: > or =500 Cholesterol, HDL 57 >=50 mg/dL 10/12/2020 2:52 PM NURSES' ASSOCIATION COUNSELOR OWAT Calculated LDL 217 (H) mg/dL 10/12/2020 2:52 PM NURSES' ASSOCIATION COUNSELOR OW AT Comment: The markedly elevated LDL level is sugge stive of a genetic condition such as familial hypercholesterolemia (FH) or familial defective apolipoprotei n B-100 (FDB). Molecular genetic testing for FH and FDB is available through [facility]: Hyperc holesterolemia Gene Panel (test FHRGP). [...] or the on-line test ko jerome at [employer] for informati on about how to order these tests or to speak with a [facility] counselor. Further interpretation would require cli nical information. ----REFERENCE VALUE---- Desirable: <100 Above Desirable: 100-129 Borderline high: 130-159 High: 160-189 Very high: > or =190 Cholesterol, Non-HDL, Calculated 239 (H) mg/dL 021 2:52 PM NURSES' ASSOCIATION COUNSELOR OWAT Comment: ----REFERENCE VALUE---- Desirable: <130 Above Desirable: 130-159 Borderline high: 160-189 High: 190-219 Very high: > or =220 Specimen Anatomical Collection Method Collection Time Receive d Time (Source) Location / / Volume Laterality Blood (Blood, 10/12/2020 8:02 AM 10/13/19 21 Venous) NURSES' ASSOCIATION COUNSELOR 10:23 AM NURSES' ASSOCIATION COUNSELOR Jeancarlos Oquendo P.A.-C. LAB BLOOD ADD-ON Performing Organization Address City/State/ZIP Code Phon e Number [facility]- [address] [place] [address] [place] [address] System in [place] [address] (ABNORMAL) Comprehensive Metabolic Panel (10/12/2020 8:02 AM NURSES' ASSOCIATION COUNSELOR) P athologist Signature Potassium, P 5.0 3.6 - 5.2 10/12/2020 [place] mmol/L 2:52 PM NURSES' ASSOCIATION COUNSELOR Sodium, P 141 135 - 145 10/12/2020 [place] mmol/L 2:52 PM NURSES' ASSOCIATION COUNSELOR Chloride, P 106 98 - 107 10/12/2020 [place] mmol/L 2:52 PM NURSES' ASSOCIATION COUNSELOR Bicarbonate, P 26 22 - 29 10/12/2020 [place] mmol/L 2:52 PM NURSES' ASSOCIATION COUNSELOR Anion Gap, P 9 7 - 15 10/12/2020 [place] 2:52 PM NURSES' ASSOCIATION COUNSELOR BUN (Blood Urea 14 6 - 21 10/12/2020 [place] Nitrogen), P mg/dL 2:52 PM NURSES' ASSOCIATION COUNSELOR Creatinine 0.74 0.59 - 10/12/2020 [place] 1.04 mg/dL 2:52 PM NURSES' ASSOCIATION COUNSELOR eGFR-Black/Afric 87 >=60 10/12/2020 [place] an Indian mL/min/BSA 2:52 PM NURSES' ASSOCIATION COUNSELOR Comment: ----ADDITIONAL INFORMATION---- Estimated GFR calculated using the 2009 CKD_EPI creatinine equation. eGFR Non-Black/ 76 >=60 mL/min/BSA 2:52 PM NURSES' ASSOCIATION COUNSELOR [facility] Comment: ----ADDITIONAL INFORMATION---- Estimated GFR calculated using the 2009 CKD_EPI creatinine equation. Calcium, Total, P 10.4 (H) 8.8 - 10.2 mg/dL 10/12/2020 2:52 PM NURSES' ASSOCIATION COUNSELOR OW[facility] Glucose, P 111 70 - 140 mg/dL 10/12/2020 2:52 PM NURSES' ASSOCIATION COUNSELOR O STEVEN Protein, Total, P 7.1 6.3 - 7.9 g/dL 10/12/2020 2:52 P M NURSES' ASSOCIATION COUNSELOR OW[place] Albumin, P 4.1 3.5 - 5.0 g/dL 10/12/2020 2:52 PM NURSES' ASSOCIATION COUNSELOR O STEVEN Aspartate Aminotransferase 25 8 - 43 U/L 10/12/2020 2 :52 PM NURSES' ASSOCIATION COUNSELOR [place] (AST), P Alkaline Phosphatase, P 72 35 - 104 U/L 10/12/2020 2: 52 PM NURSES' ASSOCIATION COUNSELOR OW[facility] Alanine Aminotransferase 14 7 - 45 U/L 10/12/2020 2:5 2 PM NURSES' ASSOCIATION COUNSELOR [place] (ALT), P Bilirubin, Total, P 0.3 <=1.2 mg/dL 10/12/2020 2:52 PM NURSES' ASSOCIATION COUNSELOR OW[place] Specimen Anatomical Collection Method Collection Time Receive d Time (Source) Location / / Volume Laterality Blood (Blood, 10/12/2020 8:02 AM 10/13/19 21 Venous) NURSES' ASSOCIATION COUNSELOR 10:23 AM NURSES' ASSOCIATION COUNSELOR Jeancarlos Oquendo P.A.-C. LAB BLOOD ADD-ON Performing Organization Address City/State/ZIP Code Phon e Number [facility]- [address] [place] [address] [facility] [place] [address] System in [place] [address] [facility] [[email or web address] documented in this encounter Visit Diagnoses Diagnosis Hyperlipidemia Mixed Screening Examination Diabetes Mellitus documented in this encounter Care Teams Copy Coordinator Relationship Specialty Start Date End Date Jeancarlos Oquendo P.A.-C. PCP - General Family Medicine 09/01/19 12/15/21 [address] [place] [phone] documented as of this encounter
--- OUTSIDE RECORDS SUMMARY | 2022-06-23 11:04 | XMS_ITS | Encounter Summary ---
:1940 Author Organization [facility] Address [address] [place] [address] Care Team Providers Name Role Phone Jeancarlos Oquendo P.A.-C. Primary Care Provider [phone] Encounter Details Date Type Department Care Team Description 08/31/2020 Orders Only [facility] PCP [facility] Sa pricila Reeves M.D. [address] [place], [place] [phone] (Wo rk) Social History [...] 05/13/2021 relatives? How often do you attend holiness or amish Patient refused 05/13/2021 services? Do you belong to any clubs or organizations such as Patient refused 05/13/2021 holiness groups, unions, fraternal or athletic groups, or [...] on filedocumented in this encounter Care Teams Continuous Yarn Dyeing Machine Operator Relationship Specialty Start Date End Date Jeancarlos Oquendo P.A.-C. PCP - General Family Medicine 09/01/19 12/15/[address] [place] [phone] documented as of this encounter
--- OUTSIDE RECORDS SUMMARY | 2022-06-23 11:04 | XMS_ITS | Encounter Summary ---
:1940 Author Organization [facility] Address [address] [place] [address] Care Team Providers Name Role Phone Jeancarlos Oquendo P.A.-C. Primary Care Provider [phone] Encounter Details Date Type Department Care Team Description 05/02/2021 Orders Only [facility] PCP [facility] Sa pricila Reeves M.D. [address] [place], [place] [phone] (Wo rk) Social History [...] How often do you attend protestant or restoration Patient refused 05/13/2021 services? Do you belong [...] on filedocumented in this encounter Care Teams Senior Courtroom Clerk Relationship Specialty Start Date End Date Jeancarlos Oquendo P.A.-C. PCP - General Family Medicine 09/01/19 12/15/[address] [place] [phone] documented as of this encounter
--- OUTSIDE RECORDS SUMMARY | 2022-06-23 11:04 | XMS_ITS | Encounter Summary ---
:1940 Author Organization [facility] Address [address] [place] [address] Care Team Providers Name Role Phone Jeancarlos Oquendo P.A.-C. Primary Care Provider [phone] Reason for Visit Outpatient (Routine) - Closed Specialty Diagnoses / Procedures Referred By Contact Refer red To Contact Dermatology Diagnoses Keratosis Actinic Jeancarlos Oquendo P.A.-C. [place] [address] [place] [address] Referral ID Status Reason Start Date Expiration Date Visits V isits Requested Authorized [id number] Closed Specialty 10/14/2020 10/14/2021 1 1 Services Required Encounter Details Date Type Department Care Team Description 10/27/2020 Comprehensive Visit Department of Micha Noriega onal History Of Other Malignant Neoplasm Of Skin (Primary Dx); Dermatology in [place] Keratosis Actinic; [place], [address] [place] [address] Tumor Skin Uncertain Behavior; [place], [place] Keratosis Seborrheic Inflame d [address] [facility] [address] [place], [place] [phone] (Work) [phone] Social History Tobacco Use Types Packs/Day Years [...] often do you attend latter day or bahai Patient refused 05/13/2021 services? Do you belong to any clubs or organizations such as Patient refused 05/13/2021 latter day groups, unions, fraCanyon Mid[employer] or athletic groups, or school groups? How [...] persistent, brown, scaly area on her left anabaptist that frequently itches. It has been treated [...] hyperkeratotic, thin pink papule. On the left anabaptist is a 2 cm waxy, brown, hyperkeratotic [...] via letter. #2 Irritated seborrheic keratosis, left anabaptist 1 irritated seborrheic keratosis was/were treated with [...] Organization Address City/State/ZIP Code Phon e Number [facility] - [address] [place], [place] [address] [place] [address] [facility] [address] documented in this encounter Visit Diagnoses Diagnosis Personal History Of Other Malignant Neop lasm Of Skin - Primary Keratosis Actinic Tumor Skin Uncertain Behavior Keratosis Seborrheic Inflamed documented in this encounter Care Teams Transfer Knitter Relationship Specialty Start Date End Date Jeancarlos Oquendo P.A.-C. PCP - General Family Medicine 09/01/19 12/15/21 [address] [place] [phone] documented as of this encounter
--- OUTSIDE RECORDS SUMMARY | 2022-06-23 11:04 | XMS_ITS | Encounter Summary ---
:1940 Author Organization [facility] Address [address] [place] [address] Care Team Providers Name Role Phone Jeancarlos Oquendo P.A.-C. Primary Care Provider [phone] Reason for Visit Outpatient (Routine) - Closed Specialty Diagnoses / Procedures Referred By Contact Refer red To Contact Dermatology Diagnoses Lesion Skin Jeancarlos Oquendo P.A.-C. [place] [address] [place] [address] Referral ID Status Reason Start Date Expiration Date Visits V isits Requested Authorized [id number] Closed Specialty 03/31/2021 03/31/2022 1 1 Services Required Encounter Details Date Type Department Care Team Description 04/07/2021 Comprehensive Visit Department of Nelly Carmen Kerato sis Actinic (Primary Dx); Dermatology in [place], [facility], Keratosis Ty orrheic Inflamed; [place], [place] Keratosis Seborrheic [address] [facility] [address] [place] [phone] Social History Tobacco Use Types Packs/Day Years [...] 05/13/2021 relatives? How often do you attend alevism or confucianism Patient refused 05/13/2021 services? Do you belong to any clubs or organizations such as Patient refused 05/13/2021 alevism groups, unions, fraStandDesk or athletic groups, or school groups? How [...] lesion Patient seen and discussed with supervising risk and insurance consultant, Dr. Clark, who evaluated the patient and concurs with the assessment and plan. HISTORY OF PRESENT ILLNESS Ms. Emma Contreras is a pleasant 80 y.o. female who presents today for evaluation of a skin lesion. Patient has a lesion of concern on her left rastafarian today. This lesion was frozen at her last visit at [facility] in October of 2020 as [...] II. Involving the right jawline and left rastafarian are pink to red macules with overlying adherent scale consistent with actinic keratoses. Involving patients lesion of concern on her left rastafarian is a waxy, inflamed, brown, stuck on papule consistent with inflamed seborrheic keratosis. Involving right rastafarian is a waxy, inflamed, brown, stuck on papule. IMPRESSION/REPORT/PLAN #1 Actinic Keratoses x 2, cryotherapy performed, right jawline and left rastafarian Actinic keratoses are pre-cancerous skin growths caused [...] nitrogen cryotherapy on the lefttemple and right rastafarian. After explaining the procedure, discussing the associated [...] Seborrheic documented in this encounter Care Teams S Iron Worker Relationship Specialty Start Date End Date Jeancarlos Oquendo P.A.-C. PCP - General Family Medicine 09/01/19 12/15/[address] [place] [phone] documented as of this encounter
--- OUTSIDE RECORDS SUMMARY | 2022-06-23 11:04 | XMS_ITS | Encounter Summary ---
:1940 Author Organization [facility] Address [address] [place] [address] Care Team Providers Name Role Phone Jeancarlos Oquendo P.A.-C. Primary Care Provider [phone] Encounter Details Date Type Department Care [...] How often do you attend mandaen or synagogue Patient refused 05/13/2021 services? Do [...] images can be found on the encounter gorodn t produced images. Provider Not In System IMG NON RAD IMAGING PROCEDUR ES Performing Organization Address City/State/ZIP Code Phon e Number IIMS IIMS NA documented in this encounter Visit Diagnoses Not on filedocumented in this encounter Care Teams Arm Maker Relationship Specialty Start Date End Date Jeancarlos Oquendo P.A.-C. PCP - General Family Medicine 09/01/19 12/15/21 [address] [place] [phone] documented as of this encounter
--- OUTSIDE RECORDS SUMMARY | 2022-06-23 11:04 | XMS_ITS | Encounter Summary ---
:1940 Author Organization [facility] Address [address] [place] [address] Care Team Providers Name Role Phone Jeancarlos Oquendo P.A.-C. Primary Care Provider [phone] Encounter Details Date Type Department Care [...] 05/13/2021 relatives? How often do you attend christian or yazdanism Patient refused 05/13/2021 services? Do you belong to any clubs or organizations such as Patient refused 05/13/2021 christian groups, unions, fraternal or athletic groups, or [...] on filedocumented in this encounter Care Teams Auditing Manager Relationship Specialty Start Date End Date Jeancarlos Oquendo P.A.-C. PCP - General Family Medicine 09/01/19 12/15/[address] [place] [phone] documented as of this encounter
--- OUTSIDE RECORDS SUMMARY | 2022-06-23 11:04 | XMS_ITS | Encounter Summary ---
:1940 Author Organization [facility] Address [address] [place] [address] Care Team Providers Name Role Phone Jeancarlos Oquendo P.A.-C. Primary Care Provider [phone] Encounter Details Date Type Department Care [...] How often do you attend baptist or pentecostal Patient refused 05/13/2021 services? Do [...] on filedocumented in this encounter Care Teams Operations Inspector Relationship Specialty Start Date End Date Jeancarlos Oquendo P.A.-C. PCP - General Family Medicine 09/01/19 12/15/21 [address] [place] [phone] documented as of this encounter
--- OUTSIDE RECORDS SUMMARY | 2022-06-23 11:04 | XMS_ITS | Encounter Summary ---
:1940 Author Organization [facility] Address [address] [place] [address] Care Team Providers Name Role Phone Jeancarlos Oquendo P.A.-C. Primary Care Provider [phone] Reason for Visit Reason Onset Date Comments Outpatient COVID-19 Testing 06/15/2020 Encounter Details Date Type Department Care Team Description 06/15/2020 External Outreach Department of Kurt Dominique Infect ion [facility] Internal Medicine in J, D.O. Respiratory (Primary [place], [place] [address] Dx) [address] [place] [phone] Social History Tobacco Use Types Packs/Day Years [...] How often do you attend sabianism or alevism Patient refused 05/13/2021 services? Do you belong [...] Encounter created for the drive-through COVID-19 testing. EOTYPE CASTER documented in this encounter Miscellaneous Notes Addendum Note - Julio Dominguez R.MCaroline - 06/15/2020 3:43 PM STEREOTYPE CASTER Addended by: JULIO DOMINGUEZ on: 06/15/2020 07:28 PM Modules accepted: Orders EOTYPE CASTER documented in this encounter Plan of Treatment Not on filedocumented as of this encounter Visit Diagnoses Diagnosis Infection Upper Respiratory - Primary documented in this encounter Additional Health Concerns Infection Onset Date Last Indicated Resolved Time COVID19 Pending 06/15/2020 06/15/2020 06/15/2020 7:28 PM STEREOTYPE CASTER documented as of this encounter Care Teams Perianesthesia Manager Relationship Specialty Start Date End Date Jeancarlos Oquendo P.A.-C. PCP - General Family Medicine 09/01/19 12/15/21 [address] [facility] [place] [phone] documented as of this encounter
--- OUTSIDE RECORDS SUMMARY | 2022-06-23 11:04 | XMS_ITS | Encounter Summary ---
:1940 Author Organization [facility] Address [address] [place] [address] Care Team Providers Name Role Phone Jeancarlos Oquendo P.A.-C. Primary Care Provider [phone] Encounter Details Date Type Department Care Team Description 02/09/2020 Orders Only Department of Mark Munoz, Encounter For Dermatology in M.D. Screening For Other [place], [place] [address] [facility] Viral Diseases [address] [place], [place] (COVID-19) ([place] [address] Dx) [phone] Social History Tobacco Use Types Packs/Day Years [...] How often do you attend mormonism or lutheran Patient refused 05/13/2021 services? Do [...] Total Antibody, Serum (03/23/2020 8:44 AM CDT) [facility] Method Time Signature SARS-CoV-2 Negative Negative [...] was performed using the Kirsty El ecsys Rrqc-GSKY-GmB-2 Reagent assay from [employer], which has received Emergency Use Authori zation(EUA) by the U.S. Food and Drug Administration . Fact sheets for this Emergency Use Autho rization (EUA) assay can be found at the following link s: For Healthcare Providers: https://www.fda.gov/media/087519/downloa d For Patients: https://www.fda.gov/media/454537/downloa d Specimen Anatomical Collection Method Collection Time Receive d Time (Source) Location / / Volume Laterality Blood (Blood, 03/23/2020 8:44 AM 03/23/20 20 9:19 Venous) CDT AM CDT Mark Munoz M.D. LAB MICROBIOLOGY - BLOOD ORD ERABLES Performing Organization Address City/[facility]/ZIP Code Phon e Number [facility] - [address] [address] Laboratories-[address] SARS Coronavirus-2, PCR Asymptomatic (03/23/2020 8:17 AM CDT) [facility] Method Time Signature SARS Swab, 03/23/2020 [...] performa nce characteristics determined by [facility] in a manner co nsistent with CLIA requirements. Independent review by the U.S. Food and Drug Administration is pending. Visit the CDC website: https://www.cdc.gov/coronavirus/ ?? for the most recent guidelines on Downey virus testing. Fact Sheet for Healthcare Providers: (https://www.ThoroughCare.com/it-mmfil es/ Provider_Fact_Sheet_for_[facility]_COVI D-19.pdf) Fact Sheet for Patients: (https://www.ThoroughCare.StockCastr/it-mmfil es/ Patient_Fact_Sheet_for_COVID-19.pdf) Specimen Anatomical Collection Method Collection Time Receive d Time (Source) Location / / Volume Laterality Varies 03/23/2020 8:17 AM 0 (Nasopharynx) CDT 10:56 AM CDT Mark Munoz M.D. LAB MICROBIOLOGY - GENERAL O RDERABLES Performing Organization Address City/[facility]/ZIP Code Phon e Number [facility] - 200 [place], [place] [address] [facility] [place] [address] Laboratories-[facility] [place] [address] documented in this encounter Visit Diagnoses Diagnosis Encounter For Screening For Other Viral Diseases (COVID-19) - Primary documented in this encounter Care Teams Store Shopper Relationship Specialty Start Date End Date Jeancarlos Oquendo P.A.-C. PCP - General Family Medicine 09/01/19 12/15/[address] [place] [phone] documented as of this encounter
--- OUTSIDE RECORDS SUMMARY | 2022-06-23 11:04 | XMS_ITS | Encounter Summary ---
:1940 Author Organization [facility] Address [address] [place] [address] Care Team Providers Name Role Phone Jeancarlos Oquendo P.A.-C. Primary Care Provider [phone] Reason for Referral Outpatient (Routine) - Closed Specialty Diagnoses / Procedures Referred By Contact Refer red To Contact Dermatology Diagnoses Keratosis Actinic Jeancarlos Oquendo P.A.-C. [facility] [address] [place] [address] Referral ID Status Reason Start Date Expiration Date Visits V isits Requested Authorized [id number] Closed Specialty 10/14/2020 10/14/2021 1 1 Services Required SORTING MACHINE CLERK Reason for Visit Reason Comments Follow-up lab results Outpatient (Routine) - Closed Specialty Diagnoses / Procedures Referred By Contact Refer red To Contact Family Medicine Diagnoses Hyperlipidemia Mixed Screening Examination Diabetes Mellitus Jeancarlos Oquendo [facility] [place] [facility] [place] [address] [place] [phone] Referral ID Status Reason Start Date Expiration Date Visits Requ ested Visits Authorized [id number] Closed 10/02/2019 10/01/2020 1 1 Encounter Details Date Type Department Care Team Description 10/14/2020 Comprehensive Visit Department of Clementina Oquendo (Primary Dx); Family Medicine, Jeancarlos, Hyperlipide austin Mixed; [facility], [facility].-C. Screening Examination Diabetes Mellitus; in [place], [address] Keratosis Actinic; [place], [place] Incontinence Urinary; [address] [address] General Medical Examination Adult RUDDY JENSEN [phone] (Work) [phone] Social History Tobacco Use Types Packs/Day Years [...] How often do you attend faith or sabianist Patient refused 05/13/2021 services? Do you belong [...] Comments Blood Pressure 124/64 10/14/2020 11:52 AM FLAT SORTING MACHINE CLERK Pulse 68 10/14/2020 11:52 AM FLAT SORTING MACHINE CLERK Temperature 36.3 ??C (97.3 ??F) 10/14/2020 11:52 AM FLAT SORTING MACHINE CLERK Respiratory Rate - - Oxygen Saturation - - Inhaled Oxygen Concentration - - Weight 64 kg (141 lb 1.5 oz) 10/14/2020 11:52 AM FLAT SORTING MACHINE CLERK Height - - Body Mass Index 24.18 10/02/2019 9:37 AM FLAT SORTING MACHINE CLERK documented in this encounter H&P Notes Jeancarlos [...] ORAL Take by mouth daily. ??? omega 3-bxm-bah-fish oil 1,000 mg (120 mg-180 mg) capsule Take by mouth daily. ??? vitamin A,C,K-kbehuw-bzkmqpzj (OCUVITE W/LUTEIN) 1,000 Unit-200 mg-60 Unit-2 mg [...] to follow up again with Dermatology in [place]. I will put through a consult for [...] spent was 30 minutes Jeancarlos Oquendo P.A.-C. SORTING MACHINE CLERK documented in this encounter Plan of Treatment Scheduled Referrals Name Type Priority Associated Order Schedule Diagnoses Dermatology - General Outpatient Referral Routine Keratosis Ac tinic Expected: consult (clinic) 10/14/2020 (Approximate), Expires: 10/15/2023 documented as of this encounter Visit Diagnoses Diagnosis Anxiety - Primary Hyperlipidemia Mixed Screening Examination Diabetes Mellitus Keratosis Actinic Incontinence Urinary General Medical Examination Adult documented in this encounter Care Teams Stone Mason Relationship Specialty Start Date End Date Jeancarlos Oquendo P.A.-C. PCP - General Family Medicine 09/01/19 12/15/[address] [place] [address] [phone] documented as of this encounter
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
--- OUTSIDE RECORDS SUMMARY | 2022-06-23 11:05 | XMS_ITS | Encounter Summary ---
:1940 Author Organization [facility] Address [address] [place] [address] Care Team Providers Name Role Phone Jeancarlos [...] How often do you attend sabianism or buddhist Patient refused 05/13/2021 services? Do you belong [...] on filedocumented in this encounter Care Teams Financial Services Technician Relationship Specialty Start Date End Date Jeancarlos Oquendo P.A.-C. PCP - General Family Medicine 09/01/19 12/15/21 [address] [place] [phone] documented as of this encounter
--- OUTSIDE RECORDS SUMMARY | 2022-06-23 11:05 | XMS_ITS | Encounter Summary ---
:[address] [facility] Address [address] [place] [address] Care Team Providers Name Role Phone Jeancarlos Oquendo P.A.-C. Primary Care Provider [phone] Reason for Visit Reason Comments Appointment Encounter Details Date Type Department Care Team Description 01/27/2020 Clinical Communication Department of Mark Munoz, Appointment Dermatology in [place], [place] [address] [facility] [address] [place] [phone] Social History Tobacco Use Types Packs/Day Years [...] How often do you attend baptism or latter-day Patient refused 05/13/2021 services? Do you belong [...] on filedocumented in this encounter Care Teams Bridge Ironworker Relationship Specialty Start Date End Date Jeancarlos Oquendo P.A.-C. PCP - General Family Medicine 09/01/19 12/15/[address] [place] [phone] documented as of this encounter
--- OUTSIDE RECORDS SUMMARY | 2022-06-23 11:05 | XMS_ITS | Encounter Summary ---
:1940 Author Organization [facility] Address [address] [place] [address] Care Team Providers Name Role Phone Jeancarlos Oquendo P.A.-C. Primary Care Provider [phone] Encounter Details Date Type Department Care Team Description 01/09/2020 Orders Only Department of Gene Maradiaga Encou nter For Dermatology in M.D. Screening For Other [place], [place] [address] Viral Diseases [address] [place] [address] (COVID-19) (Primary [place], [place] [phone] (Wo rk) Dx) [phone] Social History Tobacco Use Types Packs/Day Years [...] 05/13/2021 relatives? How often do you attend voodoo or adventist Patient refused 05/13/2021 services? Do you belong to any clubs or organizations such as Patient refused 05/13/2021 voodoo groups, unions, fraternal or athletic groups, or [...] Coronavirus-2, PCR Asymptomatic (01/25/2020 11:53 AM CDT) [facility] gist Method Time Signature SARS Swab, 01/26/2020 [...] and its performa nce characteristics determined by [facility] in a manner co nsistent with CLIA requirements. Independent review by the U.S. Food and Drug Administration is pending. Visit the CDC website: https://www.cdc.gov/coronavirus/ ?? for the most recent guidelines on Dow[place] virus testing. Fact Sheet for Healthcare Providers: (https://www.new castleC2FO.com/it-mmfil es/ Provider_Fact_Sheet_for_[facility]_COVI D-19.pdf) Fact Sheet for Patients: (https://www.MazeBolt Technologies[employer]alleon [employer].com/it-mmfil es/ Patient_Fact_Sheet_for_COVID-19.pdf) Specimen Anatomical Collection Method Collection Time Receive d Time (Source) Location / / Volume Laterality Varies 01/25/2020 11:53 01/25/2020 (Nasopharynx) AM CDT 11:53 AM CDT Gene Maradiaga M.D. LAB MICROBIOLOGY - GENERAL O RDMICHAEL Performing Organization Address City/[facility] Phon e Number [facility] - [address] [place], [place] [address] [facility] [place] [address] Laboratories-[facility] [address] [facility] SARS Coronavirus 2 IgG Ab, Serum (01/25/2020 [...] ?? Testing was performed using the [employer] Uelp-BAFI-ZbR-2 MONICO (IgG), which has received Emergency Use Authori zation (EUA) by the U.S. Food and Drug Administration . ?? Fact sheets for this EUA assay can be fo und at the following links: ?? Factsheet for healthcare Providers: ?? https://www.fda.gov/media/085550/downloa d Factsheet for healthcare Patients: ?? https://www.fda.gov/media/849832/downloa d Specimen Anatomical Collection Method Collection Time Receive d Time (Source) Location / / Volume Laterality Blood (Blood, 01/25/2020 9:53 AM 01/26/20 20 7:49 Venous) CDT AM CDT Gene Maradiaga M.D. LAB MICROBIOLOGY - BLOOD ORD MICHAEL Performing Organization Address City/[facility] Code Phon e Number [facility] [address] [place], [place] [address] [place] [address] [place] [address] Laboratory Medicine and Pathology [address] [place] documented in this encounter Visit Diagnoses Diagnosis Encounter For Screening For Other Viral Diseases (COVID-19) - Primary documented in this encounter Care Teams Preparation Supervisor Freezing Relationship Specialty Start Date End Date Jeancarlos Oquendo P.A.-C. PCP - General Family Medicine 09/01/19 12/15/[address] [place] [phone] documented as of this encounter
--- OUTSIDE RECORDS SUMMARY | 2022-06-23 11:05 | XMS_ITS | Encounter Summary ---
:1940 Author Organization [facility] Address [address] [place] [address] Care Team Providers Name Role Phone Jeancarlos Oquendo P.A.-C. Primary Care Provider [phone] Reason for Referral Outpatient (Routine) - Closed Specialty Diagnoses / Procedures Referred By Contact Refer red To Contact Dermatology Imani Ballesteros M.D . [facility] [address] [place], [place] [address] Referral ID Status Reason Start Date Expiration Date Visits Requ ested Visits Authorized [id number] Closed 12/16/2019 12/15/2020 1 1 Scheduling Instructions 4-6 week follow up appointments on PDT Reason for Visit Outpatient (Routine) - Closed Specialty Diagnoses / Procedures Referred By Contact Refer latricia To Contact Dermatology Diagnoses Keratosis Actinic Imani Ballesteros M.D. [facility] Procedures LUISITO TESSIE-U/ ALA (PDT) [address] [place], [place] [address] Referral ID Status Reason Start Date Expiration Date Visits Requ ested Visits Authorized [id number] Closed 10/15/2019 10/14/2020 1 1 Encounter Details Date Type Department Care Team Description 12/16/2019 Clinical Support Department of Imani Ballesteros M.D. [address] [place] [address] Keratosis Actinic Dermatology in [place] Jacques R.N. [address] [place] [phone] [place], [place] [address] [place] [phone] Social History Tobacco Use Types Packs/Day Years [...] How often do you attend lutheran or restorationism Patient refused 05/13/2021 services? Do you belong [...] dose documented in this encounter Care Teams Recruiter Account Manager Relationship Specialty Start Date End Date Jeancarlos Oquendo P.A.-C. PCP - General Family Medicine 09/01/19 12/15/21 [address] [place] [phone] documented as of this encounter
--- OUTSIDE RECORDS SUMMARY | 2022-06-23 11:05 | XMS_ITS | Encounter Summary ---
:1940 Author Organization [facility] Address [address] [place] [address] Care Team Providers Name Role Phone Jeancarlos OquendoCBrant Primary Care Provider [phone] Reason for Referral Outpatient (Routine) - Closed Specialty Diagnoses / Procedures Referred By Contact Refer red To Contact Family Medicine Diagnoses Hyperlipidemia Mixed Screening Examination Diabetes Mellitus Jeancarlos Oquendo [facility] ion P.A.-CBrant [address] [place] [address] Referral ID Status Reason Start Date Expiration Date Visits Requ ested Visits Authorized [id number] Closed 10/02/2019 10/01/2020 1 1 SUPERVISOR Reason for Visit Reason Comments Follow-up Follow up blood work results , 09/29/19. Wants to talk about colonoscopy results. Outpatient (Routine) - Closed Specialty Diagnoses / Procedures Referred By Contact Refer red To Contact Family Medicine Diagnoses Hyperlipidemia Mixed Screening Examination Diabetes Mellitus Screening Examination For Thyroid Disorder Jeancarlos Oquendo [facility] Region P.A.-C. [address] [place] [address] Referral ID Status Reason Start Date Expiration Date Visits Requ ested Visits Authorized [id number] Closed 09/01/2019 08/31/2020 1 1 Encounter Details Date Type Department Care Team Description 10/02/2019 Office Visit Department of Family JennyferdevanDonna kevin Cancer Colon (Primary Dx); Medicine in Jeancarlos [place] P.A. -C. Hyperlipidemia Mixed; [place] [address] [facility] Screening Examination Diabetes Mellitus; [address] [place], [place] Screening Examination For Th yroid Disorder; [place] [address] Preoperative Exam; [id number] Anxiety; Gastroesophageal Reflux Disease [...] How often do you attend episcopal or muslim Patient refused 05/13/2021 services? Do you belong [...] Comments Blood Pressure 120/75 10/02/2019 9:37 AM SPA SUPERVISOR Pulse 68 10/02/2019 9:37 AM SPA SUPERVISOR Temperature 36.1 ??C (97 ??F) 10/02/2019 9:37 AM SPA SUPERVISOR Respiratory Rate 16 10/02/2019 9:37 AM SPA SUPERVISOR Oxygen Saturation 97% 10/02/2019 9:37 AM SPA SUPERVISOR Inhaled Oxygen Concentration - - Weight 66.5 kg (146 lb 9.7 oz) 10/02/2019 9:37 AM SPA SUPERVISOR Height 162.7 cm (5' 4.06) 10/02/2019 9:37 AM SPA SUPERVISOR Body Mass Index 25.12 10/02/2019 9:37 AM SPA SUPERVISOR documented in this encounter H&P Notes Jeancarlos [...] was 25 minutes of which 20 was wrnj-yr-rbjo coordination of care and counseling Jeancarlos Oquendo P.A.-C. SUPERVISOR documented in this encounter Plan of Treatment Scheduled Referrals Name Type Priority Associated Diagnoses Order S [facility] Medicine Outpatient Referral Routine Hyperlipidem ia Mixed Expected: office visit Screening Examination 2020 (clinic) Diabetes Mellitus (Approxima te), Expires: 10/02/2022 documented as of this encounter Results (ABNORMAL) Lipid Panel (10/12/2020 8:02 AM SPA SUPERVISOR) P athologist Signature Cholesterol, 296 (H) mg/dL 10/12/2020 [place] Total 2:52 PM SPA SUPERVISOR Comment: ----REFERENCE VALUE---- Desirable: < 200 Borderline high: 200 - 239 High: > or = 240 Triglycerides 110 mg/dL 10/12/2020 2:52 PM SPA SUPERVISOR OWA T Comment: ----REFERENCE VALUE---- Normal: <150 Borderline high: 150-199 High: 200-499 Very high: > or =500 Cholesterol, HDL 57 >=50 mg/dL 10/12/2020 2:52 PM SPA SUPERVISOR OWAT Calculated LDL 217 (H) mg/dL 10/12/2020 2:52 PM SPA SUPERVISOR OW AT Comment: The markedly elevated LDL level is sugge stive of a genetic condition such as familial hypercholesterolemia (FH) or familial defective apolipoprotei n B-100 (FDB). Molecular genetic testing for FH and FDB is available through [facility]: Hyperc holesterolemia Gene Panel (test [...] or the on-line test ko jerome at [facility] for informati on about how to order these tests or to speak with a [facility] counselor. Further interpretation would require cli nical information. ----REFERENCE VALUE---- Desirable: <100 Above Desirable: 100-129 Borderline high: 130-159 High: 160-189 Very high: > or =190 Cholesterol, Non-HDL, Calculated 239 (H) mg/dL 021 2:52 PM SPA SUPERVISOR OWAT Comment: ----REFERENCE VALUE---- Desirable: <130 Above Desirable: 130-159 Borderline high: 160-189 High: 190-219 Very high: > or =220 Specimen Anatomical Collection Method Collection Time Receive d Time (Source) Location / / Volume Laterality Blood (Blood, 10/12/2020 8:02 AM 10/13/19 21 Venous) SPA SUPERVISOR 10:23 AM SPA SUPERVISOR Jeancarlos Oquendo P.A.-C. LAB BLOOD ADD-ON Performing Organization Address City/State/ZIP Code Phon e Number [facility]- [address] [place] [address] [facility] [place] [address] System in [place] [address] (ABNORMAL) Comprehensive Metabolic Panel (10/12/2020 8:02 AM SPA SUPERVISOR) P athologist Signature Potassium, P 5.0 3.6 - 5.2 10/12/2020 [place] mmol/L 2:52 PM SPA SUPERVISOR Sodium, P 141 135 - 145 10/12/2020 [place] mmol/L 2:52 PM SPA SUPERVISOR Chloride, P 106 98 - 107 10/12/2020 [place] mmol/L 2:52 PM SPA SUPERVISOR Bicarbonate, P 26 22 - 29 10/12/2020 [place] mmol/L 2:52 PM SPA SUPERVISOR Anion Gap, P 9 7 - 15 10/12/2020 [place] 2:52 PM SPA SUPERVISOR BUN (Blood Urea 14 6 - 21 10/12/2020 [place] Nitrogen), P mg/dL 2:52 PM SPA SUPERVISOR Creatinine 0.74 0.59 - 10/12/2020 [place] 1.04 mg/dL 2:52 PM SPA SUPERVISOR eGFR-Black/Afric 87 >=60 10/12/2020 [place] an Emirati mL/min/BSA 2:52 PM SPA SUPERVISOR Comment: ----ADDITIONAL INFORMATION---- Estimated GFR calculated using the 2009 CKD_EPI creatinine equation. eGFR Non-Black/ 76 >=60 mL/min/BSA 2:52 PM SPA SUPERVISOR OW[facility] Comment: ----ADDITIONAL INFORMATION---- Estimated GFR calculated using the 2009 CKD_EPI creatinine equation. Calcium, Total, P 10.4 (H) 8.8 - 10.2 mg/dL 10/12/2020 2:52 PM SPA SUPERVISOR OW[place] Glucose, P 111 70 - 140 mg/dL 10/12/2020 2:52 PM SPA SUPERVISOR O STEVEN Protein, Total, P 7.1 6.3 - 7.9 g/dL 10/12/2020 2:52 P M SPA SUPERVISOR OW[place] Albumin, P 4.1 3.5 - 5.0 g/dL 10/12/2020 2:52 PM SPA SUPERVISOR O STEVEN Aspartate Aminotransferase 25 8 - 43 U/L 10/12/2020 2 :52 PM SPA SUPERVISOR OWAT (AST), P Alkaline Phosphatase, P 72 35 - 104 U/L 10/12/2020 2: 52 PM SPA SUPERVISOR OWAT Alanine Aminotransferase 14 7 - 45 U/L 10/12/2020 2:5 2 PM SPA SUPERVISOR OW[place] (ALT), P Bilirubin, Total, P 0.3 <=1.2 mg/dL 10/12/2020 2:52 PM SPA SUPERVISOR OW[place] Specimen Anatomical Collection Method Collection Time Receive d Time (Source) Location / / Volume Laterality Blood (Blood, 10/12/2020 8:02 AM 10/13/19 21 Venous) SPA SUPERVISOR 10:23 AM SPA SUPERVISOR Jeancarlos Oquendo P.A.-C. LAB BLOOD ADD-ON Performing Organization Address City/State/ZIP Code Phon e Number [facility]- [address] [place] [address] [facility] [place] [address] System in [place] [address] [place] [address] documented in this encounter Visit Diagnoses Diagnosis Screening Cancer Colon - Primary Hyperlipidemia Mixed Screening Examination Diabetes Mellitus Screening Examination For Thyroid Disord er Preoperative Exam Anxiety Gastroesophageal Reflux Disease Without Esophagitis documented in this encounter Care Teams Hostage Negotiator Relationship Specialty Start Date End Date Jeancarlos Oquendo P.A.-C. PCP - General Family Medicine 09/01/19 12/15/[address] [place] [phone] documented as of this encounter
--- OUTSIDE RECORDS SUMMARY | 2022-06-23 11:05 | XMS_ITS | Encounter Summary ---
:1940 Author Organization [facility] Address [address] [place] [address] Care Team Providers Name Role Phone Jeancarlos Oquendo P.A.-C. Primary Care Provider [phone] Encounter Details Date Type Department Care Team Description 09/29/2019 Hospital Encounter Department of [place] Hyperlip idemia Mixed; Laboratory Medicine Juan C Arshad Screening Examination Diabetes Mellitus; in [place], [address] Screening Examination For Thyroid Disord er [place], [place] [address] [address] [place], [place] [phone] [address] (Work) [phone] Social History Tobacco Use Types Packs/Day Years [...] 05/13/2021 relatives? How often do you attend catholic or mosque Patient refused 05/13/2021 services? Do you belong to any clubs or organizations such as Patient refused 05/13/2021 catholic groups, unions, fraternal or athletic groups, [...] or slept in a chcf (including now)? Sex Assigned at Date Recorded [...] Hyperlipidemia M ixed Results for this AM SHRINK PIT OPERATOR Screening Examination proced ure are in Diabetes Mellitu s the results Screening Examination sectio n. For Thyroid Disorder THYROID-STIMULATING Routine 09/29/2019 8:56 Hyperlipidem ia Mixed Results for this HORMONE-SENSITIVE AM SHRINK PIT OPERATOR Screening Examination p rocedure are in (S-TSH) Diabetes Mellitu s the results Screening Examination sectio n. For Thyroid Disorder COMPREHENSIVE Routine 09/29/2019 8:56 Hyperlipidemia M ixed Results for this METABOLIC PANEL, S/P AM SHRINK PIT OPERATOR Screening Examinatio n procedure are in Diabetes Mellitu s the results Screening Examination sectio n. For Thyroid Disorder documented in this encounter Results S-TSH (Thyroid-Stimulating Hormone - Sensitive) (09/29/2019 8:56 AM SHRINK PIT OPERATOR) athologist Signature TSH, Sensitive 0.9 0.3 - 4.2 09/29/2019 [place] mIU/L 2:09 PM SHRINK PIT OPERATOR Comment: Biotin has been identified by the omari hein as a potential interfering substance. ??Higher concentr ations of biotin may be found in multivitamins, hair/nail supple ments, and workout supplements. ??If the result does not ma [facility] clinical observations, repeat testing after patient refrains fr om the use of supplements for at least 12 hours. Specimen Anatomical Collection Method Collection Time Receive d Time (Source) Location / / Volume Laterality Blood (Blood, 09/29/2019 8:56 AM 09/29/19 20 1:09 Venous) SHRINK PIT OPERATOR PM SHRINK PIT OPERATOR Jeancarlos Oquendo P.A.-C. LAB BLOOD ADD-ON Performing Organization Address City/State/ZIP Code Phon e Number [facility]- [address] [place] [address] [place] [address] System in [place] [address] (ABNORMAL) Lipid Panel (09/29/2019 8:56 AM SHRINK PIT OPERATOR) athologist Signature Cholesterol, 220 (H) mg/dL 09/29/2019 [place] Total 3:10 PM SHRINK PIT OPERATOR Comment: ----REFERENCE VALUE---- Desirable: < 200 Borderline high: 200 - 239 High: > or = 240 Triglycerides 79 mg/dL 09/29/2019 3:10 PM SHRINK PIT OPERATOR OWA T Comment: ----REFERENCE VALUE---- Normal: <150 Borderline high: 150-199 High: 200-499 Very high: > or =500 Cholesterol, HDL 71 >=50 mg/dL 09/29/2019 3:10 PM SHRINK PIT OPERATOR OW[facility] Calculated LDL 133 (H) mg/dL 09/29/2019 3:10 PM SHRINK PIT OPERATOR OW AT Comment: ----REFERENCE VALUE---- Desirable: <100 Above Desirable: 100-129 Borderline high: 130-159 High: 160-189 Very high: > or =190 Cholesterol, Non-HDL, Calculated 149 mg/dL 020 3:10 PM SHRINK PIT OPERATOR OW[facility] Comment: ----REFERENCE VALUE---- Desirable: <130 Above Desirable: 130-159 Borderline high: 160-189 High: 190-219 Very high: > or =220 Specimen Anatomical Collection Method Collection Time Receive d Time (Source) Location / / Volume Laterality Blood (Blood, 09/29/2019 8:56 AM 09/29/19 20 1:09 Venous) SHRINK PIT OPERATOR PM SHRINK PIT OPERATOR Jeancarlos Oquendo P.A.-C. LAB BLOOD ADD-ON Performing Organization Address City/State/ZIP Code Phon e Number [facility]- [address] [place] [address] [place] [address] System in [place] [address] (ABNORMAL) Comprehensive Metabolic Panel (09/29/2019 8:56 AM SHRINK PIT OPERATOR) P athologist Signature Potassium, P 4.6 3.6 - 5.2 09/29/2019 [place] mmol/L 3:10 PM SHRINK PIT OPERATOR Sodium, P 138 135 - 145 09/29/2019 [place] mmol/L 3:10 PM SHRINK PIT OPERATOR Chloride, P 100 98 - 107 09/29/2019 [place] mmol/L 3:10 PM SHRINK PIT OPERATOR Bicarbonate, P 22 22 - 29 09/29/2019 [place] mmol/L 3:10 PM SHRINK PIT OPERATOR Anion Gap, P 16 (H) 7 - 15 09/29/2019 OW[place] 3:10 PM SHRINK PIT OPERATOR BUN (Blood Urea 12 6 - 21 09/29/2019 OW[place] Nitrogen), P mg/dL 3:54 PM SHRINK PIT OPERATOR Creatinine 0.82 0.59 - 09/29/2019 OW[place] 1.04 mg/dL 3:10 PM SHRINK PIT OPERATOR eGFR-Black/Afri 78 >=60 09/29/2019 OWAT can Samoan mL/min/BSA 3:10 PM SHRINK PIT OPERATOR Comment: ----ADDITIONAL INFORMATION---- Estimated GFR calculated using the 2009 CKD_EPI creatinine equation. eGFR Non-Black/ 67 >=60 mL/min/BSA 3:10 PM SHRINK PIT OPERATOR OWAT Comment: ----ADDITIONAL INFORMATION---- Estimated GFR calculated using the 2009 CKD_EPI creatinine equation. Calcium, Total, P 10.1 8.8 - 10.2 mg/dL 09/29/2019 3:10 PM SHRINK PIT OPERATOR OW[place] Glucose, P 105 70 - 140 mg/dL 09/29/2019 3:10 PM SHRINK PIT OPERATOR O STEVEN Protein, Total, P 7.5 6.3 - 7.9 g/dL 09/29/2019 3:10 P M SHRINK PIT OPERATOR [facility] Albumin, P 4.4 3.5 - 5.0 g/dL 09/29/2019 3:10 PM SHRINK PIT OPERATOR O STEVEN Aspartate Aminotransferase 30 8 - 43 U/L 09/29/2019 3 :10 PM SHRINK PIT OPERATOR OWAT (AST), P Alkaline Phosphatase, P 71 35 - 104 U/L 09/29/2019 3: 10 PM SHRINK PIT OPERATOR OW[place] Alanine Aminotransferase (ALT), 15 7 - 45 U/L 020 3:10 PM SHRINK PIT OPERATOR OWAT P Bilirubin, Total, P 0.5 <=1.2 mg/dL 09/29/2019 3:10 PM SHRINK PIT OPERATOR OW[facility] Specimen Anatomical Collection Method Collection Time Receive d Time (Source) Location / / Volume Laterality Blood (Blood, 09/29/2019 8:56 AM 09/29/19 20 1:09 Venous) SHRINK PIT OPERATOR PM SHRINK PIT OPERATOR Jeancarlos Oquendo P.A.-C. LAB BLOOD ADD-ON Performing Organization Address City/State/ZIP Code Phon e Number [facility]- [address] [place] [address] [place] [address] System in [place] [address] [facility] documented in this encounter Visit Diagnoses Diagnosis Hyperlipidemia Mixed Screening Examination Diabetes Mellitus Screening Examination For Thyroid Disord er documented in this encounter Care Teams Lens Assorter Relationship Specialty Start Date End Date Jeancarlos Oquendo P.A.-C. PCP - General Family Medicine 09/01/19 12/15/21 [address] [place] [phone] documented as of this encounter
--- OUTSIDE RECORDS SUMMARY | 2022-06-23 11:05 | XMS_ITS | Encounter Summary ---
:1940 Author Organization [facility] Address [address] [place] [address] Care Team Providers Name Role Phone Jeancarlos Oquendo P.A.-C. Primary Care Provider [phone] Reason for Visit Reason Comments COVID Inquiry Encounter Details Date Type Department Care Team Description 02/02/2020 Clinical Communication Department of Mark Munoz COV ID Inquiry Dermatology in [place], [place] [address] [email or web address] [address] [place] [address] [phone] Social History Tobacco Use Types Packs/Day Years [...] How often do you attend mu-ism or catholic Patient refused 05/13/2021 services? Do [...] on filedocumented in this encounter Care Teams Wax Pot Tender Relationship Specialty Start Date End Date Jeancarlos Oquendo P.A.-C. PCP - General Family Medicine 09/01/19 12/15/[address] [place] [phone] documented as of this encounter
--- OUTSIDE RECORDS SUMMARY | 2022-06-23 11:05 | XMS_ITS | Encounter Summary ---
:1940 Author Organization [facility] Address [address] [place] [address] Care Team Providers Name Role Phone Jeancarlos Oquendo P.A.-C. Primary Care Provider [phone] Reason for Visit Outpatient (Routine) - Closed Specialty Diagnoses / Procedures Referred By Contact Refer red To Contact Dermatology Imani Ballesteros M.D . [address] [address] Referral ID Status Reason Start Date Expiration Date Visits Requ ested Visits Authorized [id number] Closed 12/16/2019 12/15/2020 1 1 Encounter Details Date Type Department Care Team Description 02/03/2020 Office Visit Department of Mark Munoz Tumor Skin Uncertain Behavior (Primary Dx); Dermatology in [place] Keratosis Seborrheic; [place], [place] 200 [facility] Keratosis Actinic [address] [place] [address] [phone] Social History Tobacco Use Types Packs/Day Years [...] 05/13/2021 relatives? How often do you attend religious or jainism Patient refused 05/13/2021 services? Do you belong to any clubs or organizations such as Patient refused 05/13/2021 religious groups, unions, fraternal or athletic groups, or [...] SUBJECTIVE REASON FOR CONSULT Spot on left faith, spots on chest. HISTORY OF PRESENT ILLNESS [...] The patient notes a spot on left faith which has been frozen with liquid nitrogen cryotherapy 3 or 4 times, and she would like to make sure it is okay. She also notes some rough spots on the upper chest. She denies any other spots of concern. SOCIAL HISTORY Mrs. Contreras is originally from [place], [place], but states she has lived over the last 60 years in [place], [place]. OBJECTIVE PHYSICAL EXAMINATION General: Alert, oriented, no acute distress. Skin: Limited skin examination of the scalp, face, ears, neck, upper chest, and bilateral upper extremities was performed. On the upper chest, 2 pink scaly macules compatible with actinic keratosis (representing the lesions of concern to the patient). On the left faith was a large light brown flattened hyperkeratotic [...] provided to patient. #3 Seborrheic keratosis, left faith The patient was reassured regarding the benign [...] Mark Munoz M.D. CT CT Job ID: [id number] documented in this encounter Plan of Treatment [...] Component Value Ref Test Analysis Performed At [facility] gist Range Method Time Signature 02/05/2020 [facility] 2:42 PM CDT Report Yudy Shay 02/05/2020 [facility] electronically [place] 2:42 PM CDT signed by Gross Description Received in formalin labeled with the patient's n heather, 02/05/2020 [facility] medical record number, and left lower posterior [...] Grossed by AV. Interpretation FINAL DIAGNOSIS 02/05/2020 [facility] A. ??Left lower posterior ear, Skin shave [...] Organization Address City/State/ZIP Code Phon e Number [facility] - [address] [place], [place] [address] [place] [address] [facility] [address] documented in this encounter Visit Diagnoses Diagnosis Tumor Skin Uncertain Behavior - Primary Keratosis Seborrheic Keratosis Actinic documented in this encounter Care Teams Order Desk Caller Relationship Specialty Start Date End Date Jeancarlos Oquendo P.A.-C. PCP - General Family Medicine 09/01/19 12/15/21 [address] [place] [address] documented as of this encounter
--- OUTSIDE RECORDS SUMMARY | 2022-06-23 11:05 | XMS_ITS | Encounter Summary ---
:1940 Author Organization [facility] Address [address] [place] [address] Care Team Providers Name Role Phone Jeancarlos Oquendo P.A.-C. Primary Care Provider [phone] Reason for Referral Outpatient (Routine) - Closed Specialty Diagnoses / Procedures Referred By Contact Refer red To Contact Dermatology Diagnoses Malignant Neoplasm Of Face Basal Cell Imani Ballesteros M.D. [facility] Procedures LUISITO MOHS 1-4 sites [address] [facility] [place], [place] [address] Referral ID Status Reason Start Date Expiration Date Visits Requ ested Visits Authorized [id number] Closed 10/20/2019 10/19/2020 1 1 Encounter Details Date Type Department Care Team Description 10/20/2019 Orders Only Department of Imani Ballesteros Malignant Neoplasm Of Dermatology in [place] Face Basal Cell [place], [place] [address] (Primary Dx) [address] [place], [place] [address] [id number] (Wo rk) Social History Tobacco Use Types [...] 05/13/2021 relatives? How often do you attend yazidism or gnosticist Patient refused 05/13/2021 services? 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 PCP - General Family Medicine 09/01/19 12/15/21 [address] [place] [address] documented as of this encounter
--- OUTSIDE RECORDS SUMMARY | 2022-06-23 11:05 | XMS_ITS | Encounter Summary ---
:1940 Author Organization [facility] Address [address] [place] [address] Care Team Providers Name Role Phone Jeancarlos Oquendo P.A.-C. Primary Care Provider [phone] Reason for Referral Outpatient (Routine) - Closed Specialty Diagnoses / Procedures Referred By Contact Refer red To Contact Dermatology Diagnoses Keratosis Actinic Jeancarlos Oquendo P.A.-C. [address] [phone] Referral ID Status Reason Start Date Expiration Date Visits V isits Requested Authorized [id number] Closed Specialty 09/01/2019 08/31/2020 1 1 Services Required RINARY PRACTITIONER Outpatient (Routine) - Closed Specialty Diagnoses / Procedures Referred By Contact Refer red To Contact Family Medicine Diagnoses Hyperlipidemia Mixed Screening Examination Diabetes Mellitus Screening Examination For Thyroid Disorder Jeancarlos Oquendo [facility] L[place] [address] [place] [phone] Referral ID Status Reason Start Date Expiration Date Visits Requ ested Visits Authorized [id number] Closed 09/01/2019 08/31/2020 1 1 RINARY PRACTITIONER Reason for Visit Reason Comments Other States [...] focused. Establish Care She lives here in [place] and would like Jeancarlos as her provider. Suspicious Skin Lesion Left sikhism area, noted for quite a while. She states they froze it in the past and it comes back. Appointment Request (Routine) - Closed Specialty Diagnoses / Procedures Referred By Contact Refer red To Contact Family Medicine Referral ID Status Reason Start Date Expiration Date Visits Requ ested Visits Authorized [id number] Closed 08/26/2019 08/25/2020 1 1 Encounter Details Date Type Department Care Team Description 09/01/2019 Office Visit Department of [facility] Azra Augustin is Actinic (Primary Dx); Medicine in [place], Juan C Arshad Hyperlipidemia Mixed; [place] [address] [facility] Gastroesophageal Reflux Disease Without Esophagitis; [address] [place], [place] Screening Examination Diabet es Mellitus; [place] [address] Anxiety; [phone] Screening Examination For Th yroid [...] How often do you attend evangelical or baptism Patient refused 05/13/2021 services? Do you belong [...] Comments Blood Pressure 116/65 09/01/2019 8:30 AM VETERINARY PRACTITIONER Pulse 78 09/01/2019 8:30 AM VETERINARY PRACTITIONER Temperature 36.2 ??C (97.2 ??F) 09/01/2019 8:30 AM VETERINARY PRACTITIONER Respiratory Rate 16 09/01/2019 8:30 AM VETERINARY PRACTITIONER Oxygen Saturation 97% 09/01/2019 8:30 AM VETERINARY PRACTITIONER Inhaled Oxygen Concentration - - Weight 68.6 kg (151 lb 3.8 oz) 09/01/2019 8:30 AM VETERINARY PRACTITIONER Height 162.6 cm (5' 4.02) 09/01/2019 8:30 AM VETERINARY PRACTITIONER Body Mass Index 25.95 09/01/2019 8:30 AM VETERINARY PRACTITIONER documented in this encounter Progress Notes Jeancarlos [...] focused.); Establish Care (She lives here in [place] and would like Jeancarlos as her provider. ); and Suspicious Skin Lesion (Left sikhism area, noted for quite a while. She [...] history of askin lesion on her left sikhism this is been frozen x2 but continues [...] no acute distress Skin: On her left sikhism she has an area that's about 3 [...] was 30 minutes of which 20 was zlpr-hu-[id number] coordination of care and counseling Jeancarlos Oquendo P.A.-C. RINARY PRACTITIONER documented in this encounter Plan of Treatment Scheduled Referrals Name Type Priority Associated Diagnoses Order [facility] Outpatient Routine Hyperlipidemia M ixed Expected: office visit Referral Screening Examination 2019 (clinic) Diabetes Mellitu s (Approximate), Screening Examination s: For Thyroid Disorder 023 Dermatology - Outpatient Routine Keratosis Actinic Expected: General consult Referral 09/01/2019 (clinic) (Approximate), Expires: 09/01/2022 documented as of this encounter Results S-TSH (Thyroid-Stimulating Hormone - Sensitive) (09/29/2019 8:56 AM VETERINARY PRACTITIONER) P athologist Signature TSH, Sensitive 0.9 0.3 - 4.2 09/29/2019 [facility] mIU/L 2:09 PM VETERINARY PRACTITIONER Comment: Biotin has been identified by the omari hein as a potential interfering substance. ??Higher concentr ations of biotin may be found in multivitamins, hair/nail supple ments, and workout supplements. ??If the result does not [facility] clinical observations, repeat testing after patient refrains fr om the use of supplements for at least 12 hours. Specimen Anatomical Collection Method Collection Time Receive d Time (Source) Location / / Volume Laterality Blood (Blood, 09/29/2019 8:56 AM 09/29/19 20 1:09 Venous) VETERINARY PRACTITIONER PM VETERINARY PRACTITIONER Jeancarlos Oquendo P.A.-C. LAB BLOOD ADD-ON Performing Organization Address City/State/ZIP Code Phon e Number [facility] [address] [place] [address] [facility] [place] [address] System in [place] [address] (ABNORMAL) Lipid Panel (09/29/2019 8:56 AM VETERINARY PRACTITIONER) P athologist Signature Cholesterol, 220 (H) mg/dL 09/29/2019 [facility] Total 3:10 PM VETERINARY PRACTITIONER Comment: ----REFERENCE VALUE---- Desirable: < 200 Borderline high: 200 - 239 High: > or = 240 Triglycerides 79 mg/dL 09/29/2019 3:10 PM VETERINARY PRACTITIONER [place] T Comment: ----REFERENCE VALUE---- Normal: <150 Borderline high: 150-199 High: 200-499 Very high: > or =500 Cholesterol, HDL 71 >=50 mg/dL 09/29/2019 3:10 PM VETERINARY PRACTITIONER [facility] Calculated LDL 133 (H) mg/dL 09/29/2019 3:10 PM VETERINARY PRACTITIONER OW AT Comment: ----REFERENCE VALUE---- Desirable: <100 Above Desirable: 100-129 Borderline high: 130-159 High: 160-189 Very high: > or =190 Cholesterol, Non-HDL, Calculated 149 mg/dL 020 3:10 PM VETERINARY PRACTITIONER [facility] Comment: ----REFERENCE VALUE---- Desirable: <130 Above Desirable: 130-159 Borderline high: 160-189 High: 190-219 Very high: > or =220 Specimen Anatomical Collection Method Collection Time Receive d Time (Source) Location / / Volume Laterality Blood (Blood, 09/29/2019 8:56 AM 09/29/19 20 1:09 Venous) VETERINARY PRACTITIONER PM VETERINARY PRACTITIONER Jeancarlos Oquendo P.A.-C. LAB BLOOD ADD-ON Performing Organization Address City/State/ZIP Code Phon e Number [facility] [address] [place] [address] [facility] [place] [address] System in [place] [address] (ABNORMAL) Comprehensive Metabolic Panel (09/29/2019 8:56 AM VETERINARY PRACTITIONER) P athologist Signature Potassium, P 4.6 3.6 - 5.2 09/29/2019 [facility] mmol/L 3:10 PM VETERINARY PRACTITIONER Sodium, P 138 135 - 145 09/29/2019 [place] mmol/L 3:10 PM VETERINARY PRACTITIONER Chloride, P 100 98 - 107 09/29/2019 [facility] mmol/L 3:10 PM VETERINARY PRACTITIONER Bicarbonate, P 22 22 - 29 09/29/2019 [facility] mmol/L 3:10 PM VETERINARY PRACTITIONER Anion Gap, P 16 (H) 7 - 15 09/29/2019 [facility] 3:10 PM VETERINARY PRACTITIONER BUN (Blood Urea 12 6 - 21 09/29/2019 [facility] Nitrogen), P mg/dL 3:54 PM VETERINARY PRACTITIONER Creatinine 0.82 0.59 - 09/29/2019 [facility] 1.04 mg/dL 3:10 PM VETERINARY PRACTITIONER eGFR-Black/Afri 78 >=60 09/29/2019 [facility] can Scottish mL/min/BSA 3:10 PM VETERINARY PRACTITIONER Comment: ----ADDITIONAL INFORMATION---- Estimated GFR calculated using the 2009 CKD_EPI creatinine equation. eGFR Non-Black/ 67 >=60 mL/min/BSA 3:10 PM VETERINARY PRACTITIONER [facility] Comment: ----ADDITIONAL INFORMATION---- Estimated GFR calculated using the 2009 CKD_EPI creatinine equation. Calcium, Total, P 10.1 8.8 - 10.2 mg/dL 09/29/2019 3:10 PM VETERINARY PRACTITIONER OW[facility] Glucose, P 105 70 - 140 mg/dL 09/29/2019 3:10 PM VETERINARY PRACTITIONER O STEVEN Protein, Total, P 7.5 6.3 - 7.9 g/dL 09/29/2019 3:10 P M VETERINARY PRACTITIONER [facility] Albumin, P 4.4 3.5 - 5.0 g/dL 09/29/2019 3:10 PM VETERINARY PRACTITIONER O STEVEN Aspartate Aminotransferase 30 8 - 43 U/L 09/29/2019 3 :10 PM VETERINARY PRACTITIONER [facility] (AST), P Alkaline Phosphatase, P 71 35 - 104 U/L 09/29/2019 3: 10 PM VETERINARY PRACTITIONER [facility] Alanine Aminotransferase (ALT), 15 7 - 45 U/L 020 3:10 PM VETERINARY PRACTITIONER OW[facility] P Bilirubin, Total, P 0.5 <=1.2 mg/dL 09/29/2019 3:10 PM VETERINARY PRACTITIONER [facility] Specimen Anatomical Collection Method Collection Time Receive d Time (Source) Location / / Volume Laterality Blood (Blood, 09/29/2019 8:56 AM 09/29/19 1:09 Venous) VETERINARY PRACTITIONER PM VETERINARY PRACTITIONER Jeancarlos Oquendo P.A.-C. LAB BLOOD ADD-ON Performing Organization Address City/State/ZIP Code Phon e Number [facility]- [address] [place] [address] [facility] [place] [address] System in [place] [address] documented in this encounter Visit Diagnoses Diagnosis Keratosis Actinic - Primary Hyperlipidemia Mixed Gastroesophageal Reflux Disease Without Esophagitis Screening Examination Diabetes Mellitus Anxiety Screening Examination For Thyroid Disord er Hematochezia documented in this encounter Care Teams Section Supervisor Relationship Specialty Start Date End Date Jeancarlos Oquendo P.A.-C. PCP - General Family Medicine 09/01/19 12/15/[address] [place] [phone] documented as of this encounter
--- OUTSIDE RECORDS SUMMARY | 2022-06-23 11:05 | XMS_ITS | Encounter Summary ---
:1940 Author Organization [facility] Address [address] [place] [address] Care Team Providers Name Role Phone Jeancarlos Oquendo P.A.-C. Primary Care Provider [phone] Encounter Details Date Type Department Care Team Description 10/06/2019 Clinical Communication Department of Jeancarlos Alanis [facility] [place] [facility], in [address] [facility] [address] [place], [place] [phone] [address] (Work) [phone] Social History Tobacco Use Types Packs/Day Years [...] How often do you attend bahai or quaker Patient refused 05/13/2021 services? Do [...] for the very basics like Not h betrha at all 05/13/2021 food, housing, medical care, [...] on filedocumented in this encounter Care Teams Chief Mechanical Engineer Relationship Specialty Start Date End Date Jeancarlos Oquendo P.A.-C. PCP - General Family Medicine 09/01/19 12/15/21 [address] [place] [phone] documented as of this encounter
--- OUTSIDE RECORDS SUMMARY | 2022-06-23 11:05 | XMS_ITS | Encounter Summary ---
:1940 Author Organization [facility] Address [address] [place] [address] Care Team Providers Name Role Phone Jeancarlos Oquendo P.A.-C. Primary Care Provider [phone] Encounter Details Date Type Department Care [...] How often do you attend mandaeism or anabaptist Patient refused 05/13/2021 services? Do you belong [...] slept in a group home (including now)? Education Answer Date Recorded [...] filedocumented in this encounter Care Teams Manager Installation Relationship Specialty Start Date End Date Jeancarlos Oquendo P.A.-C. PCP - General Family Medicine 09/01/19 12/15/21 [address] [place] [phone] documented as of this encounter
--- OUTSIDE RECORDS SUMMARY | 2022-06-23 11:05 | XMS_ITS | Encounter Summary ---
:1940 Author Organization [facility] Address [address] [place] [address] Care Team Providers Name Role Phone Jeancarlos Oquendo P.A.-C. Primary Care Provider [phone] Reason for Visit Reason Comments COVID Inquiry Encounter Details Date Type Department Care Team Description 01/26/2020 Clinical Communication Department of Donald Whitehead Dermatology in [place], [place] [address] [facility] [address] [place] [phone] [phone] Social History Tobacco Use Types Packs/Day Years [...] How often do you attend religious or jewish Patient refused 05/13/2021 services? Do [...] - 01/26/2020 2:28 PM CDT (Note for [facility] locations only: If the patient states [...] to: BERNADETTE BARRERA DESK Scheduling Contact Number: [phone] documented in this encounter Plan of Treatment Not on filedocumented as of this encounter Visit Diagnoses Not on filedocumented in this encounter Additional Health Concerns Infection Onset Date Last Indicated Resolved Time COVID19 Pending 01/25/2020 01/25/2020 01/26/2020 2:16 PM CDT documented as of this encounter Care Teams Shutdown Coordinator Relationship Specialty Start Date End Date Jeancarlos Oquendo P.A.-C. PCP - General Family Medicine 09/01/19 12/15/[address] [place] [phone] documented as of this encounter
--- OUTSIDE RECORDS SUMMARY | 2022-06-23 11:05 | XMS_ITS | Encounter Summary ---
:1940 Author Organization [facility] Address [address] [place] [address] Care Team Providers Name Role Phone Jeancarlos Oquendo P.A.-C. Primary Care Provider [phone] Encounter Details Date Type Department Care [...] How often do you attend rastafari or evangelical Patient refused 05/13/2021 services? Do [...] on filedocumented in this encounter Care Teams Sand Operator Relationship Specialty Start Date End Date Jeancarlos Oquendo P.A.-C. PCP - General Family Medicine 09/01/19 12/15/21 [address] [place] [phone] documented as of this encounter
--- OUTSIDE RECORDS SUMMARY | 2022-06-23 11:05 | XMS_ITS | Encounter Summary ---
:1940 Author Organization [facility] Address [address] [place] [address] Care Team Providers Name Role Phone Jeancarlos Oquendo P.A.-C. Primary Care Provider [phone] Encounter Details Date Type Department Care [...] How often do you attend buddhism or episcopal Patient refused 05/13/2021 services? Do [...] on filedocumented in this encounter Care Teams Tire Buffer Relationship Specialty Start Date End Date Jeancarlos Oquendo P.A.-C. PCP - General Family Medicine 09/01/19 12/15/21 [address] [place] [phone] documented as of this encounter
--- OUTSIDE RECORDS SUMMARY | 2022-06-23 11:05 | XMS_ITS | Encounter Summary ---
:1940 Author Organization [facility] Address [address] [place] [address] Care Team Providers Name Role Phone Jeancarlos [...] How often do you attend gnosticist or islam Patient refused 05/13/2021 services? Do [...] on filedocumented in this encounter Care Teams Wet Inspector Optical Glass Relationship Specialty Start Date End Date Jeancarlos Oquendo P.A.-C. PCP - General Family Medicine 09/01/19 12/15/21 [address] [place] [phone] documented as of this encounter
--- OUTSIDE RECORDS SUMMARY | 2022-06-23 11:05 | XMS_ITS | Encounter Summary ---
:1940 Author Organization [facility] Address [address] [place] [address] Care Team Providers Name Role Phone Jeancarlos Oquendo P.A.-C. Primary Care Provider [phone] Reason for Visit Outpatient (Routine) - Closed Specialty Diagnoses / Procedures Referred By Contact Refer red To Contact Dermatology Diagnoses Malignant Neoplasm Of Face Basal Cell Imani Ballesteros M.D. [facility] Procedures LUISITO MOHS 1-4 sites [address] [facility], [place] [address] Referral ID Status Reason Start Date Expiration Date Visits Requ ested Visits Authorized [id number] Closed 10/20/2019 10/19/2020 1 1 Encounter Details Date Type Department Care Team Description 01/27/2020 Procedure visit Department of Donald Whitehead Neoplasm Dermatology sheila Del Valle M.D. Of Face Basal Cell [place], [place] 200 [facility] (Primary Dx) [address] [place] [phone] [phone] Social History Tobacco Use Types Packs/Day Years [...] How often do you attend hoahaoism or scientologist Patient refused 05/13/2021 services? Do [...] of Surgery: 01/27/2020 Surgeon: Dr. Donald Whitehead Doctor Of Nursing Practice: Dr. Caridad Argueta and Dr. Richelle Wells Location: [facility]: Floor:16 Room:[facility] Visit Type: Outpatient PostOp Diagnosis: Nodular basal cell carcinoma Anatomic Location: Left upper cheek Preoperative size: 0.5 x 0.5 cm [facility] number: 27 Indication(s) for Mohs Micrographic Surgery: [...] plan as documented by Dr. Caridad Argueta ([phone]) and Richelle Wells M.D. ([phone]) who assisted me. In addition, I was also present for the critical portion and immediately available for the entire procedure we performed. documented in this encounter Consult Notes Caridad Argueta M.D. - 01/27/2020 9:30 AM CDT Referral Imani Ballesteros M.D. Chief Complaint Basal cell carcinoma Supervising business operations consultant: Dr. Whitehead HISTORY OF THE PRESENT [...] plan as documented by Dr. Caridad Argueta ([phone]) who assisted me. In addition, I was [...] MAR Action Action Date Dose Rate Site [id number] Given 01/27/2020 10:20 AM CDT 2 mL [...] day documented in this encounter Care Teams Spirits Model Relationship Specialty Start Date End Date Jeancarlos Oquendo P.A.-C. PCP - General Family Medicine 09/01/19 12/15/[address] [place] [phone] documented as of this encounter
--- OUTSIDE RECORDS SUMMARY | 2022-06-23 11:05 | XMS_ITS | Encounter Summary ---
:1940 Author Organization [facility] Address [address] [place] [address] Care Team Providers Name Role Phone Jeancarlos Oquendo P.A.-C. Primary Care Provider [phone] Reason for Visit Reason Comments COVID Inquiry Encounter Details Date Type Department Care Team Description 01/19/2020 Clinical Communication Department of Nelly Hawthorne COVID Inquiry Dermatology in .. [place], [place] [address] [place] [address] [address] [facility], [place] [address] [place] [address] [phone] Social History Tobacco Use Types Packs/Day Years [...] How often do you attend mu-ism or yazidism Patient refused 05/13/2021 services? Do [...] - 01/19/2020 2:55 PM CDT (Note for [facility] locations only: If the patient states [...] Route reply to: BERNADETTE BARRERA Scheduling Contact Number:[phone] documented in this encounter Plan of Treatment Not on filedocumented as of this encounter Visit Diagnoses Not on filedocumented in this encounter Care Teams Director Of Food And Beverage Services Relationship Specialty Start Date End Date Jeancarlos Oquendo P.A.-C. PCP - General Family Medicine 09/01/19 12/15/[address] [place] [phone] documented as of this encounter
--- OUTSIDE RECORDS SUMMARY | 2022-06-23 11:05 | XMS_ITS | Encounter Summary ---
:[address] [facility] Address [address] [place] [address] Care Team Providers Name Role Phone Jeancarlos Oquendo P.A.-C. Primary Care Provider [phone] Reason for Referral Outpatient (Routine) - Closed Specialty Diagnoses / Procedures Referred By Contact Refer red To Contact Dermatology Diagnoses Keratosis Actinic Imani Ballesteros M.D. [facility] Procedures LUISITO TESSIE-U/ ALA (PDT) [address] [place], [place] [address] Referral ID Status Reason Start Date Expiration Date Visits Requ ested Visits Authorized [id number] Closed 10/15/2019 10/14/2020 1 1 Reason for Visit Outpatient (Routine) - Closed Specialty Diagnoses / Procedures Referred By Contact Refer red To Contact Dermatology Diagnoses Keratosis Actinic Jeancarlos Oquendo P.A.-C. [facility] [address] [place] [address] Referral ID Status Reason Start Date Expiration Date Visits V isits Requested Authorized [id number] Closed Specialty 09/01/2019 08/31/2020 1 1 Services Required Encounter Details Date Type Department Care Team Description 10/15/2019 Comprehensive Visit Department of Imani Ballesteros Cancer Skin Basal Cell Personal History (Primary Dx); Dermatology in [place], M.D. Keratosis Actinic; [place] [address] [address] Tumor Skin Unce rtain Behavior; [facility] [address] Dermatoheliosis [address] [place], [place] [phone] Social History Tobacco Use Types Packs/Day [...] How often do you attend orthodox or uatsdin Patient refused 05/13/2021 services? Do you belong [...] basal cell carcinoma Lesion of concern, left baptism HISTORY OF PRESENT ILLNESS Ms. Emma Contreras is a 79 y.o. female who presents today accompanied by her daughter for screening skin examination. 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 Today, the patient reports a lesion of concern involving the left baptism. She reports this has been treated with [...] area of hemorrhagic crust. Involving the left baptism is a large pink to lang tobrown [...] #4 Inflamed seborrheic keratoses x 2, left baptism and left upper forehead Given the inflamed [...] Component Value Ref Test Analysis Performed At [facility] gist Range Method Time Signature 10/17/2019 [facility] 3:56 PM CDT Report [place] 10/17/2019 [facility] electronically [place], 3:56 PM CDT signed by [...] Organization Address City/State/ZIP Code Phon e Number [facility] - [address] [place], [place] [address] [place] [address] [facility] [address] documented in this encounter Visit Diagnoses Diagnosis Cancer Skin Basal Cell Personal History - Primary Keratosis Actinic Tumor Skin Uncertain Behavior Dermatoheliosis documented in this encounter Care Teams Porcelain Technician Relationship Specialty Start Date End Date Jeancarlos Oquendo P.A.-C. PCP - General Family Medicine 09/01/19 12/15/21 [address] [place] [phone] documented as of this encounter
--- OUTSIDE RECORDS SUMMARY | 2022-06-23 11:06 | XMS_ITS | Encounter Summary ---
:1940 Author Organization [facility] Address [address] [place] [address] Care Team Providers Name Role Phone Opal Vazquez M.D. Primary Care Provider Encounter Details Date Type Department Care Team Description 10/25/2018 Orders Only Department of Family Opal Vazquez Ove [facility] Body Mass Index 25-29.9 Adult (Primary Dx); Medicine, [place] Hyperlipidemia Mixed; Clinic, in 200 [facility] Gastroesophageal Reflux Disease [place], [place] 300 [facility] [address] [place] [address] [phone] [address] (Work) [phone] Social History Tobacco Use Types Packs/Day Years [...] How often do you attend denominational or latter-day Patient refused 05/13/2021 services? Do [...] Signature Cholesterol, 282 (H) mg/dL 10/25/2018 [facility] Total 4:32 PM CDT [facility] [employer] [facility] [employer] [facility] Comment: ----REFERENCE VALUE---- Desirable: < 200 Borderline high: 200 - 239 High: > or = 240 Triglycerides 200 (H) mg/dL 10/25/2018 4:32 PM CDT [facility] LAB Comment: ----REFERENCE VALUE---- Normal: <150 Borderline high: 150-199 High: 200-499 Very high: > or =500 Cholesterol, HDL, S 51 >=50 mg/dL 10/25/2018 4:32 PM CDT [facility]- [facility] Calculated LDL 191 (H) mg/dL 10/25/2018 4:32 PM CDT [facility]- [employer] [facility] Comment: The markedly elevated LDL level is sugge stive of a genetic condition such as familial hypercholesterolemia (FH) or familial defective apolipoprotei n B-100 (FDB). Molecular genetic testing for FH and FDB is available through [facility]: FH/ADH Genetic Reflex Panel (test ADHP). [...] or the on-line test ko jerome at [employer] for informati on about how to order these tests or to speak with a [facility] counselor. Further interpretation would require cli nical information. ----REFERENCE VALUE---- Desirable: <100 Above Desirable: 100-129 Borderline high: 130-159 High: 160-189 Very high: > or =190 Cholesterol, Non-HDL, 231 (H) mg/dL 10/25/2018 4:32 PM CDT [facility] Comment: ----REFERENCE VALUE---- Desirable: <130 Above Desirable: 130-159 Borderline high: 160-189 High: 190-219 Very high: > or =220 Specimen Anatomical Collection Method Collection Time Receive d Time (Source) Location / / Volume Laterality Blood (Blood, 10/25/2018 11:01 10/25/2018 3:26 Venous) AM CDT PM CDT Opal Vazquez M.D. LAB BLOOD ADD-ON Performing Organization Address City/State/[facility] Code Phon e Number [facility] [address] [place] [address] LAB AST (Aspartate Aminotransferase) (10/25/2018 11:01 AM CDT) [facility] gist Method Time Signature Aspartate 23 8 - 43 10/25/2018 [facility] Aminotransferase U/L 4:32 PM CDT [employer] (AST)[employer] [facility] Specimen Anatomical Collection Method Collection Time Receive d Time (Source) Location / / Volume Laterality Blood (Blood, 10/25/2018 11:01 10/25/2018 3:26 Venous) AM CDT PM CDT Opal Vazquez M.D. LAB BLOOD ADD-ON Performing Organization Address City/[facility] Phon e Number [facility] [address] [place] [address] LAB (ABNORMAL) BMP (Basic Metabolic Panel) (10/25/2018 11:01 AM CDT) P athologist Signature Potassium, S 4.5 3.6 - 5.2 10/25/2018 [facility] mmol/L 4:32 PM [facility] Sodium, S 143 135 - 145 10/25/2018 [facility] mmol/L 4:32 PM [facility] Chloride, S 105 98 - 107 10/25/2018 [facility] mmol/L 4:32 PM [facility] Bicarbonate, S 26 22 - 29 10/25/2018 [facility] mmol/L 4:32 PM [facility] Anion Gap 12 7 - 15 10/25/2018 [facility] 4:32 PM [facility] BUN (Blood Urea 11 6 - 21 10/25/2018 [facility] Nitrogen), S mg/dL 4:32 PM [facility] Creatinine 0.77 0.59 - 10/25/2018 [facility] 1.04 mg/dL 4:32 PM [facility] eGFR-Non 73 >=60 10/25/2018 [facility] Black/ mL/min/BSA 4:32 PM [facility] Comment: ----ADDITIONAL INFORMATION---- Estimated GFR calculated using the 2009 CKD_EPI creatinine equation. eGFR-Black/ 84 >=60 mL/min/BSA 2018 4:32 PM [facility] Comment: ----ADDITIONAL INFORMATION---- Estimated GFR calculated using the 2009 CKD_EPI creatinine equation. Calcium, Total, S 10.5 (H) 8.8 - 10.2 mg/dL 10/25/2018 4 :32 PM [facility] Glucose, S 103 70 - 140 mg/dL 10/25/2018 4:32 PM [facility] Specimen Anatomical Collection Method Collection Time Receive d Time (Source) Location / / Volume Laterality Blood (Blood, 10/25/2018 11:01 10/25/2018 3:26 Venous) AM CDT PM CDT Opal Vazquez M.D. LAB BLOOD ADD-ON Performing Organization Address City/State/ZIP Code Phon e Number [facility] [address] [place] [address] LAB CBC with Differential, Blood (10/25/2018 11:01 AM CDT) P athologist Signature Hemoglobin 14.7 11.6 - 10/25/2018 [facility] 15.0 g/dL 11:17 AM CDT [facility]- [facility] LAB Hematocrit 42.8 35.5 - 10/25/2018 [facility] 44.9 % 11:17 AM CDT [facility] Erythrocytes 4.77 3.92 - 10/25/2018 [facility] 5.13 11:17 AM CDT [facility]- [facility] MCV 89.7 78.2 - 10/25/2018 [facility] 97.9 fL 11:17 AM CDT [facility] RBC Distrib Width 12.8 12.2 - 10/25/2018 [facility] 16.1 % 11:17 AM CDT [facility]- [employer] Platelet Count 236 157 - 371 10/25/2018 [facility] x10(9)/L 11:17 AM CDT [facility] Leukocytes 4.9 3.4 - 9.6 10/25/2018 [facility] x10(9)/L 11:17 AM CDT [facility] Neutrophils 2.76 1.56 - 10/25/2018 [facility] 6.45 11:17 AM CDT [facility]- [facility] Lymphocytes 1.83 0.95 - 10/25/2018 [facility] 3.07 11:17 AM CDT [facility](9[facility]- [facility] [facility] Monocytes 0.30 0.26 - 10/25/2018 [facility] 0.81 11:17 AM CDT [facility] [place] [facility] Eosinophils 0.04 0.03 - 10/25/2018 [facility] 0.48 11:17 AM CDT [facility] [place] [facility] Basophils 0.01 0.01 - 10/25/2018 [facility] 0.08 11:17 AM CDT [facility] x[facility](9[facility]- [facility] LAB Specimen Anatomical Collection Method Collection Time Receive d Time (Source) Location / / Volume Laterality Blood (Blood, 10/25/2018 11:01 10/25/2018 Venous) AM CDT 11:17 AM CDT Opal Vazquez M.D. LAB BLOOD ADD-ON Performing Organization Address City/State/ZIP Code Phon e Number [facility] [address] [place] [address] LAB documented in this encounter Visit Diagnoses Diagnosis Overweight Body Mass Index 25-29.9 Adult - Primary Hyperlipidemia Mixed Gastroesophageal Reflux Disease documented in this encounter Care Teams Technical Support Consultant Relationship Specialty Start Date End Date Opal Vazquez M.D. PCP - General 01/18/17 07/06/19 documented as of this encounter
--- OUTSIDE RECORDS SUMMARY | 2022-06-23 11:06 | XMS_ITS | Encounter Summary ---
:1940 Author Organization [facility] Address [address] [place] [address] Care Team Providers Name Role Phone Opal Vazquez M.D. Primary Care Provider Encounter Details Date Type Department Care Team Description 03/26/2018 Abstract Department of Family Medicine, Provider, Historical [facility], in [place], [place] [address] [place] [address] Social History Tobacco Use Types Packs/Day Years [...] How often do you attend latter-day or hindu Patient refused 05/13/2021 services? Do [...] documented as of this encounter Care Teams Combination Saw Operator Relationship Specialty Start Date End Date Opal Vazquez M.D. PCP - General 01/18/17 07/06/19 documented as of this encounter
--- OUTSIDE RECORDS SUMMARY | 2022-06-23 11:06 | XMS_ITS | Encounter Summary ---
:1940 Author Organization [facility] Address [address] [place] [address] Care Team Providers Name Role Phone Opal Vazquez M.D. Primary Care Provider Encounter Details Date Type Department Care Team Description 10/31/2018 Orders Only Department of Family Chelsey Vazquez M.D. Medicine, [facility], 200 [facility] [place] [address] [facility] [place] [address] [phone] Social History Tobacco Use Types Packs/Day Years [...] How often do you attend faith or sikhism Patient refused 05/13/2021 services? Do you belong [...] or slept in a detention (including now)? Sex Assigned at Date Recorded Female 02/25/2018 7:29 PM CDT documented as of this encounter Plan of Treatment Not on filedocumented as of this encounter Visit Diagnoses Not on filedocumented in this encounter Care Teams Aviation Consultant Relationship Specialty Start Date End Date Opal Vazquez M.D. PCP - General 01/18/17 07/06/19 documented as of this encounter
--- OUTSIDE RECORDS SUMMARY | 2022-06-23 11:06 | XMS_ITS | Encounter Summary ---
:1940 Author Organization [facility] Address [address] [place] [address] Care Team Providers Name Role Phone Opal Vazquez M.D. Primary Care Provider Reason for Referral Outpatient (Routine) - Closed Specialty Diagnoses / Procedures Referred By Contact Refer red To Contact Family Medicine Diagnoses Annual Medicare Examination Return Opal Vazquez M.D. [facility] [address] [place] [address] Referral ID Status Reason Start Date Expiration Date Visits Requ ested Visits Authorized [id number] Closed 08/14/2018 08/14/2019 1 1 Scheduling Instructions We will contact once we determine a day in [place]. Patient wants AWV in [place]. K BURNISHER Reason for Visit Reason Onset Date Comments Medicare Annual Wellness Visit 08/14/2018 Encounter Details Date Type Department Care Team Description 08/14/2018 Clinical Communication Department of Louise Weiner Annual Community Internal L, R.N. Wellness Visit Medicine in [address] [place], [place] 300 [facility] [address] [place], [place] [phone] [address] (Work) [phone] Social History Tobacco Use Types Packs/Day Years [...] 05/13/2021 relatives? How often do you attend restorationism or protestant Patient refused 05/13/2021 services? Do you belong to any clubs or organizations such as Patient refused 05/13/2021 restorationism groups, unions, fraternal or athletic groups, or [...] or slept in a fpc (including now)? Sex Assigned at Date Recorded Female 02/25/2018 7:29 PM CDT documented as of this encounter Miscellaneous Notes Telephone Encounter - Addis Dao R.N. - 09/10/2018 9:30 AM CST Called patient to discuss scheduling a Medicare Annual Wellness Visit. Patient has scheduled in [place] for Sep 23 at 11am. K BURNISHER Telephone Encounter - Louise Weiner R.N. - 08/14/2018 3:05 PM CST Called patient to discuss scheduling a Medicare Annual Wellness Visit. Patient interested. Order placed. Patient would like to be seen in [place]. Would like a call once [place] is determined. K BURNISHER documented in this encounter Plan of Treatment Scheduled Referrals Name Type Priority Associated Diagnoses Order S [facility] Family Medicine Outpatient Referral Routine Annual Medicare Ex pected: nurse visit Examination Return 9 (clinic) (Approximate), Expires: 08/14/2021 documented as of this encounter Visit Diagnoses Diagnosis Annual Medicare Examination Return - Anna britton documented in this encounter Additional Health Concerns Assessment Noted Time PHQ-9 Depression Total Score: 1 04/08/2015 9:22 AM CDT documented as of this encounter Care Teams Yardage Caller Relationship Specialty Start Date End Date Opal Vazquez M.D. PCP - General 01/18/17 07/06/19 documented as of this encounter
--- OUTSIDE RECORDS SUMMARY | 2022-06-23 11:06 | XMS_ITS | Encounter Summary ---
:1940 Author Organization [facility] Address [address] [place] [address] Care Team Providers Name Role Phone Opal Vazquez M.D. Primary Care Provider Encounter Details Date Type Department Care Team Description 03/09/2017 Hospital Encounter HX FBCV FAMILYPRA Chelsey Vazquez M.D. [address] [place] [phone] (Wo rk) Social History Tobacco [...] How often do you attend episcopalian or lutheran Patient refused 05/13/2021 services? Do [...] or slept in a custodial (including now)? Sex Assigned at Date Recorded [...] Vazquez M.D. - 03/09/2017 8:35 AM CDT [id number] CHIEF COMPLAINT/REASON FOR VISIT Annual exam. HISTORY OF PRESENT ILLNESS This 76-year-old female presents to the clinic for annual evaluation. Is not fasting. Is due for herlabs in the fall. Would like to consider a mammogram this year. 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 Wears glasses. Is in need of some [...] each day. 6. Niacin each day. 7. [place]-3 each day. 8. Calcium with vitamin D [...] VAZQUEZ MD On: 03/10/2017 07:20 AM Source: [facility] MHSDOLBEYNONRADSYS Document Id: [id number] documented in this encounter Miscellaneous Notes Miscellaneous - Opal Vazquez M.D. - 03/09/2017 12:28 PM CDT Ambulatory Patient Summary [address] [id number] Visit Information Name: LIZZ CONTRERAS [facility] Number: [id number] Current Date: 03/09/2017 12:28:58 Physicians [...] Active Cancer Skin Basal Cell Active 09/20/16 [facility] in [address] [place] [address] Patient Name: LIZZ CONTRERAS Collected: 09/15/2016 Address: [facility]/State/Zip: [address] [place] [id number] Received: Reported: 09/15/2016 09/18/2016 Soc. Sec. #: /Age/Sex 1940 (Age: 76) F Physician(s): WM HUBER Copy To: [facility] [id number] [address] [place] [address] SURGICAL PATHOLOGY REPORT FINAL DIAGNOSIS: SKIN, RIGHT [...] if you dont have one. Go to [email or web address] and click on Create Your Account. Then, follow the directions to complete the online form. Youll be asked for your [facility] number which you can find at the top of this document. Your Goals/Additional instructions: Source: [facility] POWERCHART Document Id: [id number] Miscellaneous - Opal Vazquez M.D. 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 Intake/History Adult Senior Research Engineer Intake/History Entered On: 03/09/2017 8:54 CDT Performed [...] 03/09/2017 8:53 CDT General Info Languages : Portuguese Is Patient Female and 13-50 no hysterectomy : No JEANNE TSANG LPN - 03/09/2017 8:53 CDT Subjective Pain Symptoms : No JEANNE TSANG LPN - 03/09/2017 8:53 CDT Dependent Habits Exposure to Tobacco Smoke : Other: former Smoking Status : Former smoker Tobacco 2A : Yes Tobacco Use/Currently Using : No Tobacco Use/Last 30 Days : No Tobacco Use/Last 12 months : No JEANNE TSANG LPN - 03/09/2017 8:53 CDT [facility] Document Id: [id number] CDT!28 Miscellaneous - Jeanne Tsang LBrantP.NBrant - [...] Health Screen/Safety Assmt : Unable to obtain [facility] Preference : JEANNE Davidson LPN - 03/09/2017 [...] TSANG LPN - 03/09/2017 8:53 CDT Source: [facility] [employer] Document Id: [id number] CDT!28 documented in this encounter Plan of Treatment Not on filedocumented as of this encounter Visit Diagnoses Not on filedocumented in this encounter Additional Health Concerns Assessment Noted Time PHQ-9 Depression Total Score: 1 04/08/2015 9:22 AM CDT documented as of this encounter Care Teams Die Stamper Relationship Specialty Start Date End Date Opal Vazquez M.D. PCP - General 01/18/17 07/06/19 documented as of this encounter
--- OUTSIDE RECORDS SUMMARY | 2022-06-23 11:06 | XMS_ITS | Encounter Summary ---
:1940 Author Organization [facility] Address [address] [place] [address] Care Team Providers Name Role Phone Unavailable Primary Care Provider Unavailable Encounter Details Date Type Department Care Team Description 10/12/2016 Hospital Encounter HX RST DERM SURG OP [facility] Mateusz Harrell M.D., M.S. [address] [place] [address] (Wo rk) Social History Tobacco Use Types [...] How often do you attend anglican or rastafarian Patient refused 05/13/2021 services? Do you belong [...] Comments Blood Pressure 115/72 10/12/2016 7:40 AM SAND PLANT ATTENDANT Vital sign result from Clinical Notes. Pulse 67 10/12/2016 7:40 AM SAND PLANT ATTENDANT Vital sign result from Clinical Notes. Temperature [...]
--- OUTSIDE RECORDS SUMMARY | 2022-06-23 11:06 | XMS_ITS | Encounter Summary ---
:1940 Author Organization [facility] Address [address] [place] [address] Care Team Providers Name Role Phone Opal Vazquez M.D. Primary Care Provider Reason for Visit Reason Comments Medication Visit Appointment Request (Routine) - Closed Specialty Diagnoses / Procedures Referred By Contact Refer red To Contact Family Medicine Referral ID Status Reason Start Date Expiration Date Visits Requ ested Visits Authorized [id number] Closed 09/23/2018 09/23/2019 1 1 Encounter Details Date Type Department Care Team Description 10/25/2018 Office Visit Department of Family Opal Vazquez, Brianna erlipidemia Mixed (Primary Dx); MedicineCortes M.D. Overweight Body Mass Index 25-29.9 Adult ; Clinic, in [place] Smoking Tobacco Use Personal History; [place], [place] Primary Osteoarthritis Multi ple Sites; [address] [address] Gastroesophageal Reflux Disease Without Esophagitis; [place], [place] [phone] Abnormal Findi ng Nonspecific [phone] (Work) [phone] Social History Tobacco Use Types Packs/Day Years [...] 05/13/2021 relatives? How often do you attend quaker or spiritism Patient refused 05/13/2021 services? Do you belong to any clubs or organizations such as Patient refused 05/13/2021 quaker groups, unions, fraFirst Marketing or athletic groups, or school groups? 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 She is taking her medications as [...] Nonspecific documented in this encounter Care Teams Fiction Writer Relationship Specialty Start Date End Date Opal Vazquez M.D. PCP - General 01/18/17 07/06/19 documented as of this encounter
--- OUTSIDE RECORDS SUMMARY | 2022-06-23 11:06 | XMS_ITS | Encounter Summary ---
:1940 Author Organization [facility] Address [address] [place] [address] Care Team Providers Name Role Phone Opal Vazquez M.D. Primary Care Provider Encounter Details Date Type Department Care Team Description 12/05/2018 Clinical Communication Department of Bernadine Brian, MedicineBraden M.D. [facility], [address] [address] [place], [place] [phone] [address] (Work) [phone] Social History Tobacco Use Types Packs/Day Years [...] 05/13/2021 relatives? How often do you attend mormon or sikh Patient refused 05/13/2021 services? Do you belong to any clubs or organizations such as Patient refused 05/13/2021 mormon groups, unions, fraternal or athletic groups, or [...] on filedocumented in this encounter Care Teams Physical Therapy Assistant Instructor Relationship Specialty Start Date End Date Opal Vazquez M.D. PCP - General 01/18/17 07/06/19 documented as of this encounter
--- OUTSIDE RECORDS SUMMARY | 2022-06-23 11:06 | XMS_ITS | Encounter Summary ---
:1940 Author Organization [facility] Address [address] [place] [address] Care Team Providers Name Role Phone Opal Vazquez M.D. Primary Care Provider Encounter Details Date Type Department Care Team Description 10/25/2018 Hospital Encounter Department of Opal Vazquez Gastromeño sophageal Reflux Disease; Laboratory Elmer Rojo Overweight Body Mass Index 25-29.9 Adult ; Medicine in [address] Hyperlipidemia Mixed [facility] [address] [address] [facility] [address] [address] [phone] [place], [place] (Work) [phone] Social History Tobacco Use [...] How often do you attend anglican or scientology Patient refused 05/13/2021 services? Do [...] athologist Signature Cholesterol, 282 (H) mg/dL 10/25/2018 [facility] Total 4:32 PM CDT [facility]- [facility] Comment: ----REFERENCE VALUE---- Desirable: < 200 Borderline high: 200 - 239 High: > or = 240 Triglycerides 200 (H) mg/dL 10/25/2018 4:32 PM CDT [facility] Comment: ----REFERENCE VALUE---- Normal: <150 Borderline high: 150-199 High: 200-499 Very high: > or =500 Cholesterol, HDL, S 51 >=50 mg/dL 10/25/2018 4:32 PM CDT [facility]- [facility] Calculated LDL 191 (H) mg/dL 10/25/2018 4:32 PM CDT [facility]- [facility] Comment: The markedly elevated LDL level is sugge stive of a genetic condition such as familial hypercholesterolemia (FH) or familial defective apolipoprotei n B-100 (FDB). Molecular genetic testing for FH and FDB is available through [facility] Laboratories: FH/ADH Genetic Reflex Panel (test [...] or the on-line test ko jerome at [employer] for informati on about how to order these tests or to speak with a [facility] counselor. Further interpretation would require cli nical information. ----REFERENCE VALUE---- Desirable: <100 Above Desirable: 100-129 Borderline high: 130-159 High: 160-189 Very high: > or =190 Cholesterol, Non-HDL, 231 (H) mg/dL 10/25/2018 4:[address] [facility] [place] [facility] [place] Comment: ----REFERENCE VALUE---- Desirable: <130 Above Desirable: 130-159 Borderline high: 160-189 High: 190-219 Very high: > or =220 Specimen Anatomical Collection Method Collection Time Receive d Time (Source) Location / / Volume Later[place] Blood (Blood, 10/25/2018 11:01 10/25/2018 3:26 Venous) AM CDT PM CDT Opal Vazquez M.D. LAB BLOOD ADD-ON Performing Organization Address City/[facility]/ZIP Code Phon e Number [facility] [address], [place] [address] LAB AST (Aspartate Aminotransferase) (10/25/2018 11:01 AM CDT) Patholo gist Method Time Signature Aspartate 23 8 - 43 10/25/2018 [facility] Aminotransferase U/L 4:32 PM CDT [facility] Specimen Anatomical Collection Method Collection Time Receive d Time (Source) Location / / Volume [place] Blood (Blood, 10/25/2018 11:01 10/25/2018 3:26 Venous) AM CDT PM CDT Opal Vazquez M.D. LAB BLOOD ADD-ON Performing Organization Address City/[facility]/ZIP [facility] Phon e Number [facility] [address], [place] [address] LAB (ABNORMAL) BMP (Basic Metabolic Panel) (10/25/2018 11:01 AM CDT) P athologist Signature Potassium, S 4.5 3.6 - 5.2 10/25/2018 [facility] mmol/L 4:32 PM CD[facility] Sodium, S 143 135 - 145 10/25/2018 [facility] mmol/L 4:32 PM CDT [facility] Chloride, S 105 98 - 107 10/25/2018 [facility] mmol/L 4:32 PM CDT [facility] Bicarbonate, S 26 22 - 29 10/25/2018 [facility] mmol/L 4:32 PM CDT [facility] Anion Gap 12 7 - 15 10/25/2018 [facility] 4:32 PM T [facility] BUN (Blood Urea 11 6 - 21 10/25/2018 [facility] Nitrogen), S mg/dL 4:32 PM [facility] Creatinine 0.77 0.59 - 10/25/2018 [facility] 1.04 mg/dL 4:32 PM [facility] eGFR-Non 73 >=60 10/25/2018 [facility] Black/ mL/min/BSA 4:32 PM [facility] [place] [facility] Comment: ----ADDITIONAL INFORMATION---- Estimated GFR calculated using the 2009 CKD_EPI creatinine equation. eGFR-Black/ 84 >=60 mL/min/BSA 2018 4:32 PM [facility] [place] [facility] Comment: ----ADDITIONAL INFORMATION---- Estimated GFR calculated using the 2009 CKD_EPI creatinine equation. Calcium, Total, S 10.5 (H) 8.8 - 10.2 mg/dL 10/25/2018 4 :32 PM [facility] Glucose, S 103 70 - 140 mg/dL 10/25/2018 4:32 PM [facility] [place] [facility] Specimen Anatomical Collection Method Collection Time Receive d Time (Source) Location / / Volume Laterality Blood (Blood, 10/25/2018 11:01 10/25/2018 3:26 Venous) AM CDT PM CDT Opal Vazquez M.D. LAB BLOOD ADD-ON Performing Organization Address City/State/ZIP Code Phon e Number [facility] [address] [place] [address] LAB CBC with Differential, Blood (10/25/2018 11:01 AM CDT) P athologist Signature Hemoglobin 14.7 11.6 - 10/25/2018 [facility] 15.0 g/dL 11:17 AM T [facility] Hematocrit 42.8 35.5 - 10/25/2018 [facility] 44.9 % 11:17 AM T [facility] Erythrocytes 4.77 3.92 - 10/25/2018 [facility] 5.13 11:17 AM CDT [facility] MCV 89.7 78.2 - 10/25/2018 [facility] 97.9 fL 11:17 AM CDT [facility] [employer] [facility] RBC Distrib Width 12.8 12.2 - 10/25/2018 [facility] 16.1 % 11:17 AM CDT [facility] [employer] Platelet Count 236 157 - 371 10/25/2018 [facility] x10(9)/L 11:17 AM CDT [facility] [employer] Leukocytes 4.9 3.4 - 9.6 10/25/2018 [facility] x10(9)/L 11:17 AM CDT [facility] [employer] Neutrophils 2.76 1.56 - 10/25/2018 [facility] 6.45 11:17 AM CDT [facility](9)/L [facility] [employer] Lymphocytes 1.83 0.95 - 10/25/2018 [facility] 3.07 11:17 AM CDT [facility](9)/L [facility]- [employer] Monocytes 0.30 0.26 - 10/25/2018 [facility] 0.81 11:17 AM CDT [facility](9)/L [facility]- [employer] Eosinophils 0.04 0.03 - 10/25/2018 [facility] 0.48 11:17 AM CDT [facility](9)/L [facility]- [employer] Basophils 0.01 0.01 - 10/25/2018 [facility] 0.08 11:17 AM CDT [facility](9)/L [facility]- [employer] Specimen Anatomical Collection Method Collection Time Receive d Time (Source) Location / / Volume Later[place] Blood (Blood, 10/25/2018 11:01 10/25/2018 Venous) AM CDT 11:17 AM CDT Opal Vazquez M.D. LAB BLOOD ADD-ON Performing Organization Address City/State/ZIP Code Phon e Number [facility] [address] [place] [address] LAB documented in this encounter Visit Diagnoses Diagnosis Gastroesophageal Reflux Disease Overweight Body Mass Index 25-29.9 Adult Hyperlipidemia Mixed documented in this encounter Care Teams Helpdesk Technician Relationship Specialty Start Date End Date Opal Vazquez M.D. PCP - General 01/18/17 07/06/19 documented as of this encounter
--- OUTSIDE RECORDS SUMMARY | 2022-06-23 11:06 | XMS_ITS | Encounter Summary ---
:1940 Author Organization [facility] Address [address] [place] [address] Care Team Providers Name Role Phone Opal Vazquez M.D. Primary Care Provider Reason for Visit Outpatient (Routine) - Closed Specialty Diagnoses / Procedures Referred By Contact Refer red To Contact Family Medicine Diagnoses Annual Medicare Examination Return Opal Vazquez M.D. [facility] Region [address] [place] [address] Referral ID Status Reason Start Date Expiration Date Visits Requ ested Visits Authorized [id number] Closed 08/14/2018 08/14/2019 1 1 Encounter Details Date Type Department Care Team Description 09/23/2018 Office Visit Department of Family Chelsey Vazquez M.D. [address] [place] [address] Annual Medicare Medicine in [place] Teresa G, R.N. 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 Pulse 76 09/23/2018 12:01 PM BUFFET WAITER/WAITRESS Temperature - - Respiratory Rate 20 09/23/2018 12:01 PM BUFFET WAITER/WAITRESS Oxygen Saturation - - Inhaled Oxygen Concentration - - Weight 71.6 kg (157 lb 13.6 oz) 09/23/2018 12:01 PM BUFFET WAITER/WAITRESS Height 162.9 cm (5' 4.13) 09/23/2018 12:01 PM BUFFET WAITER/WAITRESS Body Mass Index 26.98 09/23/2018 12:01 PM BUFFET WAITER/WAITRESS documented in this encounter Patient Instructions Patient [...] Provider follow up appt: will schedule soon ET WAITER/WAITRESS documented in this encounter Progress Notes Addis [...] concerns Nose symptoms: Other: no concerns LANGUAGES: Vietnamese VITALS: see vital signs in chart ALLERGIES: [...] Yes Provider notified: No Shavon Dao R.N. ET WAITER/WAITRESS documented in this encounter Plan of Treatment Not on filedocumented as of this encounter Visit Diagnoses Diagnosis Annual Medicare Examination Return documented in this encounter Care Teams Cable Testers Helper Relationship Specialty Start Date End Date Opal Vazquez M.D. PCP - General 01/18/17 07/06/19 documented as of this encounter
--- OUTSIDE RECORDS SUMMARY | 2022-06-23 11:06 | XMS_ITS | Encounter Summary ---
:1940 Author Organization [facility] Address [address] [place] [address] Care Team Providers Name Role Phone Opal Vazquez M.D. Primary Care Provider Reason for Visit Reason Comments Pre-op Exam Outpatient (Routine) - Closed Specialty Diagnoses / Procedures Referred By Contact Refer red To Contact General Surgery Diagnoses General Medical Examination Adult Elder Flores M.D. [address] [address] Referral ID Status Reason Start Date Expiration Date Visits Requ ested Visits Authorized [id number] Closed 02/20/2018 02/20/2019 1 1 Encounter Details Date Type Department Care Team Description 03/08/2018 Office Visit Department of [facility] Body Mass Index 25-29.9 Adult (Primary Dx); Cortes Christian M.D. General Medical Examination Adult; Clinic, in [address] Gastroesophageal Reflux Disease; [place], [place] Hyperlipidemia Mixed; [address] [address] [place] Subsequent; [place], [place] [phone] Primary Osteoa rthritis Multiple Sites; [phone] (Work) Varicose Vein Lower Extremity Bilateral; [phone] Preoperative Ex amination Cardiovascular; (Fax) Preoperative Ex [...] How often do you attend zoroastrianism or sikhism Patient refused 05/13/2021 services? Do [...] 03/08/2018 10:45 AM CDT Preop faxed to [facility]. documented in this encounter Consult Notes Opal Vazquez M.D. - 03/08/2018 10:45 AM CDT CHIEF COMPLAINT/REASON FOR VISIT Preop evaluation HISTORY OF PRESENT ILLNESS This 77-year-old female presents to the clinic secondary to preop evaluation. She has plans have a total right knee secondary to degenerative joint disease with failed medical management with the [facility] 03/26/2018. She was having some problems with her throat which began at zoroastrianism. It developed into a cold for which [...] Ref Range Ventricular Rate ECG/Min 60 BPM DC Interval 140 ms QRSD Interval 78 ms QT Interval 436 ms QTC Interval 436 ms P [place] -29 degrees R [place] 9 degrees T Wave [place] 20 degrees STOP BANG SCORE-3 ASSESSMENT/PLAN 1. [...] to the OR with 03/26/2018 at the [facility] for definitive treatment of her [...] Signature Ventricular Rate 60 BPM MUSE ECG/Min DC Interval 140 ms MUSE QRSD Interval 78 ms MUSE QT Interval 436 ms MUSE QTC Interval 436 ms MUSE P [place] -29 degrees MUSE R [place] 9 degrees MUSE T Wave [place] 20 degrees MUSE Specimen Anatomical Collection Method [...] Potassium, S 4.3 3.6 - 5.2 03/08/2018 [facility] mmol/L 1:23 PM [facility] [place] [facility] Sodium, S 142 135 - 145 03/08/2018 [facility] mmol/L 1:23 PM [facility] [place] [facility] Chloride, S 104 98 - 107 03/08/2018 [facility] mmol/L 1:23 PM [facility] [place] [facility] Bicarbonate, S 29 22 - 29 03/08/2018 [facility] mmol/L 1:23 PM [facility] [place] [facility] Anion Gap 9 7 - 15 03/08/2018 [facility] 1:23 PM [facility] [place] [facility] BUN (Blood Urea 12 6 - 21 03/08/2018 [facility] Nitrogen), S mg/dL 1:23 PM [facility] [place] [facility] Creatinine 0.75 0.59 - 03/08/2018 [facility] 1.04 mg/dL 1:23 PM T [facility] eGFR-Non 76 >=60 03/08/2018 [facility] Black/ mL/min/BSA 1:23 PM T [facility] [place] [facility] Comment: ----ADDITIONAL INFORMATION---- Estimated GFR calculated using the 2009 CKD_EPI creatinine equation. eGFR-Black/ 88 >=60 mL/min/BSA 2017 1:23 PM [facility] [place] [facility] Comment: ----ADDITIONAL INFORMATION---- Estimated GFR calculated using the 2009 CKD_EPI creatinine equation. Calcium, Total, S 10.0 8.8 - 10.2 mg/dL 03/08/2018 1 :23 PM CDT [facility] LAB Glucose, S 115 70 - 140 mg/dL 03/08/2018 1:23 PM CDT [facility] Specimen Anatomical Collection Method Collection Time Receive d Time (Source) Location / / Volume Later[place] Blood (Blood, 03/08/2018 11:35 03/08/2018 1:04 Venous) AM CDT PM CDT Opal Vazquez M.D. LAB BLOOD ADD-ON Performing Organization Address City/State/ZIP Code [facility]on e [facility] [address] [place] [address] LAB CBC with Differential, Blood (03/08/2018 11:35 AM CDT) P athologist Signature Hemoglobin 13.9 11.6 - 03/08/2018 [facility] 15.0 g/dL 12:23 PM T [facility] Hematocrit 40.2 35.5 - 03/08/2018 [facility] 44.9 % 12:23 PM T [facility] Erythrocytes 4.44 3.92 - 03/08/2018 [facility] 5.13 12:23 PM CDT [facility] x10(12)/L [facility] MCV 90.5 78.2 - 03/08/2018 [facility] 97.9 fL 12:23 PM T [facility] RBC Distrib Width 12.8 12.2 - 03/08/2018 [facility] 16.1 % 12:23 PM CDT [facility] [place] [facility] Platelet Count 196 157 - 371 03/08/2018 [facility] x10(9)/L 12:23 PM CDT [facility] Leukocytes 6.4 3.4 - 9.6 03/08/2018 [facility] x10(9)/L 12:23 PM CDT [facility] Neutrophils 3.37 1.56 - 03/08/2018 [facility] 6.45 12:23 PM CDT [facility](9)/L [facility]- [place] [facility] Lymphocytes 2.35 0.95 - 03/08/2018 [facility] 3.07 12:23 PM CDT [facility](9[facility]- [place] [facility] Monocytes 0.53 0.26 - 03/08/2018 [facility] 0.81 12:23 PM CDT [facility](9[facility]- [place] [facility] Eosinophils 0.10 0.03 - 03/08/2018 [facility] 0.48 12:23 PM CDT [facility](9)/[facility]- [place] [facility] Basophils 0.02 0.01 - 03/08/2018 [facility] 0.08 12:23 PM CDT [facility](9)/[facility]- [place] [facility] Specimen Anatomical Collection Method Collection Time Receive d Time (Source) Location / / Volume Laterality Blood (Blood, 03/08/2018 11:35 03/08/2018 Venous) AM CDT 11:37 AM CDT Opal Vazquez M.D. LAB BLOOD ADD-ON Performing Organization Address City/State/ZIP Code Phon e Number [facility]- [address] [place] [address] [place] [facility]- [address] [place] [address] [place] [facility] documented in this encounter Visit [...] documented as of this encounter Care Teams Manager Of Employee Relations Relationship Specialty Start Date End Date Opal Vazquez M.D. PCP - General 01/18/17 07/06/19 documented as of this encounter
--- OUTSIDE RECORDS SUMMARY | 2022-06-23 11:06 | XMS_ITS | Encounter Summary ---
:1940 Author Organization [facility] Address [address] [place] [address] Care Team Providers Name Role Phone Unavailable Primary Care Provider Unavailable Encounter Details Date Type Department Care Team Description 09/15/2016 Hospital Encounter HX FBCV FAMILYPRA Connor Zuniga M.D. [address] [facility], [address] [place], [place] [address] (Wo rk) Social History [...] How often do you attend restorationism or oriental orthodox Patient refused 05/13/2021 services? [...] Comments Blood Pressure 118/66 09/15/2016 8:12 AM CONSTRUCTION AND MAINTENANCE INSPECTOR Pulse 68 09/15/2016 8:12 AM CONSTRUCTION AND MAINTENANCE INSPECTOR Temperature - - Respiratory Rate 16 09/15/2016 8:12 AM CONSTRUCTION AND MAINTENANCE INSPECTOR Oxygen Saturation - - Inhaled Oxygen Concentration - - Weight 73 kg (160 lb 15 oz) 09/15/2016 8:12 AM CONSTRUCTION AND MAINTENANCE INSPECTOR Height - - Body Mass Index 27.31 07/12/2016 10:15 AM CONSTRUCTION AND MAINTENANCE INSPECTOR documented in this encounter Progress Notes Jose Zuniga M.D. - 09/15/2016 8:24 AM CST Clinic Full Note CHIEF COMPLAINT/REASON FOR VISIT referral from Dr. Vazquez, has had spot on left shinto for about 2 years, has been trying different soaps and oils to help with dry/rough skin, also has spot on upper lip that won't heal HISTORY OF PRESENT ILLNESS She is here today for several areas on the face that are crusty and painful. She also has an area on the left shinto since 2014 that changes colors, becomes purplish [...] lessthan 1 cc. irritated seborrheic keratosis left shinto 2.3cm x 1.7 cm - Area(s) frozen [...] [1]FM-PME; HURTT, SANTIAGO J MD 07/12/2016 09:47 CONSTRUCTION AND MAINTENANCE INSPECTOR Electronically Signed By: JOSE ZUNIGA MD On: 09/15/2016 09:00 AM Source: [facility] POWERCHART Document Id: [id number] TRUCTION AND MAINTENANCE INSPECTOR documented in this encounter Miscellaneous Notes Miscellaneous - Jose Zuniga M.D. - 09/20/2016 4:21 PM CST [facility] Document Contains Addenda Addendum by MICHAEL MITCHELL LPN on September 22, 2016 15:35:32 CONSTRUCTION AND MAINTENANCE INSPECTOR Spoke with: ( x_ ) Patient ( _ ) Parent ( _ ) Spouse ( _ ) Child ( ) Other: _ Call back telephone number: _ Reason for Call: -_ results Chief Complaint: Patient was reached and notified of results. OSRP referral completed. Patient beverly will call her to schedule an appt. [facility] [place] mailed out to patient. She will [...] language for Healthcare discussion: _ Was an automatic machines supervisor used for this call? _ Other ( --_ ) From: JOSE ZUNIGA MD To: ANITA Zuniga Nurse; Sent: 09/20/2016 16:21:47 CONSTRUCTION AND MAINTENANCE INSPECTOR Subject: [facility] in [address] [place] [address] Patient Name: LIZZ CONTRERAS Collected: 09/15/2016 Address: City/State/Zip: [address] [place] [address] [place] [id number] Received: Reported: 09/15/2016 09/18/2016 Soc. Sec. #: /Age/Sex 1940 (Age: 76) F Physician(s): WM ZUNIGA Copy To: [facility] [id number] [address] [place] [address] [place] [address] SURGICAL PATHOLOGY REPORT FINAL DIAGNOSIS: SKIN, RIGHT NOSE: --- MICRONODULAR BASAL CELL CARCINOMA APPEARING AT THE MARGINS. (INCOMPLETELY EXCISED.) The biopsy showed a Basal cell carcinoma on the right nose- This type of skin cancer tends to stay very local, but grows very deep, necessitating a larger procedure than we can do here. This skin cancer requires the [facility] clinic where they do an outpatient [...] a MOH's brochure- Please start OSRP to [facility] for Basal Cell- \ Source: [facility] POWERCHART Document Id: [id number] Miscellaneous - Jose Zuniga M.D. - 09/15/2016 9:00 AM CST Ambulatory Patient Summary [facility] [address] [place], [place] [id number] Visit Information Name: LIZZ CONTRERAS [facility] Number: [id number] Current Date: 09/15/2016 09:00:10 [...] if you dont have one. Go to [email or web address] and click on Create Your Account. Then, follow the directions to complete the online form. Youll be asked for your [facility] number which you can find at the top of this document. Your Goals/Additional instructions: Source: [facility] POWERCHART Document Id: [id number] TRUCTION AND MAINTENANCE INSPECTOR Miscellaneous - Jose Zuniga M.D. - 09/15/2016 9:00 AM CST Ambulatory Discharge Medication List [address] [id number] Visit Information Name: LIZZ CONTRERAS [facility] Number: [id number] Current Date: 09/15/2016 09:00:10 [...] MD Signed On:15-SEP-2016 09:00:07 Additional Information: Source: [facility] POWERCHART Document Id: [id number] TRUCTION AND MAINTENANCE INSPECTOR Miscellaneous - Amadeo Loza L.PBrantN. - 09/15/2016 8:12 AM CST Adult Singing Telegram Performer Intake/History Adult Singing Telegram Performer Intake/History Entered On: 09/15/2016 8:17 CONSTRUCTION AND MAINTENANCE INSPECTOR Performed On: 09/15/2016 8:12 CONSTRUCTION AND MAINTENANCE INSPECTOR by AMADEO LOZA LPN Intake Chief Complaint : referral from Dr. Vazquez, has had spot on left shinto for about 2 years, has been trying [...] kg AMADEO LOZA LPN - 09/15/2016 8:12 CONSTRUCTION AND MAINTENANCE INSPECTOR General Info Information Given By : Patient Preferred Communication Mode : Verbal, Written Languages : [place]ese Is Patient Female and 13-50 no hysterectomy : No AMADEO LOZA LPN - 09/15/2016 8:12 CONSTRUCTION AND MAINTENANCE INSPECTOR Subjective Pain Symptoms : No AMADEO LOZA LPN - 09/15/2016 8:12 CONSTRUCTION AND MAINTENANCE INSPECTOR Dependent Habits Exposure to Tobacco Smoke : Other: former Smoking Status : Former smoker Tobacco 2A : Yes Tobacco Use/Currently Using : No Tobacco Use/Last 30 Days : No Tobacco Use/Last 12 months : No AMADEO LOZA LPN - 09/15/2016 8:12 CONSTRUCTION AND MAINTENANCE INSPECTOR Source: [facility] POWERCHART Document Id: [id number] CONSTRUCTION AND MAINTENANCE INSPECTOR!29 TRUCTION AND MAINTENANCE INSPECTOR documented in this encounter Plan of Treatment Not on filedocumented as of this encounter Procedures Procedure Name Priority Date/Time Associated Diagnosis Comme nts SURGICAL PATHOLOGY Routine 09/15/2016 2:52 PM Res ults for this CONSTRUCTION AND MAINTENANCE INSPECTOR procedure are i n the results section. documented in this encounter Results Pathology Surgical Pathology (09/15/2016 2:52 PM CONSTRUCTION AND MAINTENANCE INSPECTOR) Specimen (Source) Anatomical Collection Method Collection Time Re ceived Time Location / / Volume Laterality 09/15/2016 2:52 PM CONSTRUCTION AND MAINTENANCE INSPECTOR Narrative [facility] - 11/22/2016 12:58 PM CDT [facility] in [address] [place] [address] Patient Name: LIZZ CONTRERAS Patient ID #: [id number] Collected: 09/15/2016 Address: [facility]/Zip: [address] [place] [address] ??[phone] Received: Reported: 09/15/2016 09/18/2016 Soc. Sec. #: ?/Age/Sex 1940 (Age: 76) ??F Physician(s): WM ZUNIGA Copy To: ? [facility] ??[id number] [address] [facility], ??[place] ??[address] SURGICAL PATHOLOGY REPORT FINAL DIAGNOSIS: SKIN, RIGHT NOSE: --- MICRONODULAR BASAL CELL CARCINOMA AP PEARING AT THE MARGINS. (INCOMPLETELY EXCISED.) pap/09/18/2016 TEDDY HERNANDEZ M.D. Report electronically released. Interpretation by TEDDY HERNANDEZ M.D. PROCEDURES/ADDENDA: ADDENDUM ? Date Ordered: ? 2016 ? Status: ??Signed Out Date Complete: ? 11/22/2016 ? By: ??DENIZ FERNANDEZ Date Reported: ? 11/22/2016 Addendum Diagnosis REVIEW OF OUTSIDE SPECIMEN REPORT FROM [facility]; [address] [place] [address], [phone] (REPORT INCLUDED BELOW). DDG:nm November 17, 2016 09/15/2016 Dermatopathology Report ([id number]) Referring Physician: Teddy Hernandez M.D. [address] [address] Priority Fax Requested By:Rashaad Harrell M.D. ??[phone] DIAGNOSIS: A. ??Clinic Consultation, Outside Materi al; Right nose, [id number], 09/15/2016: ??Nodular basal cell carcino ma, involving biopsy border 10/04/2016 17:00 ??Interpreted by: Jacque Marion M.D.[id number] Report electronically signed by Jacque Marion M.D. Transcribed by: [email or web address] 10/04/2016 13:01:30 SPECIMEN DESCRIPTION: TISSUE DESCRIPTION: [id number] MATERIAL RECEIVED: A. ??Clinic Consultation, Outside Materi al; Right nose, [id number], 09/15/2016 ( 1 ss, 1 blk): ??Outside slid e(s) reviewed by Dermatopathology, [facility], [place], [place]. TEDDY HERNANDEZ M.D. SPECIMEN(S) RECEIVED: RIGHT NOSE CLINICAL HISTORY: RULE OUT SKIN CANCER GROSS DESCRIPTION: Submitted as right nose is a 0.4 x 0.3 x 0.1 cm shave of light lang skin. ??Inked. ??Sectioned. ??ESB, one block. [id number] [facility]/09/15/2016 MICROSCOPIC DESCRIPTION: Reviewed by Teddy Hernandez M.D.; [...]
--- OUTSIDE RECORDS SUMMARY | 2022-06-23 11:06 | XMS_ITS | Encounter Summary ---
:1940 Author Organization [facility] Address [address] [place] [address] Care Team Providers Name Role Phone Opal Vazquez M.D. Primary Care Provider Encounter Details Date Type Department Care Team Description 03/09/2017 Hospital Encounter HX [facility]V MAMMO Bernadine Vazquez M.D. [address] [place] [phone] (Wo rk) Social History Tobacco [...] How often do you attend zoroastrianism or mormon Patient refused 05/13/2021 services? Do you belong [...] s. Narrative 03/09/2017 2:27 PM CDT EXAM: [place] Mammo Screening w/ CADD INDICATION: screen COMPARISON: Baseline FINDINGS: Heterogeneously dense breast p arenchyma bilaterally. Breast density diminishes mammographic sensitiv ity for detection of malignancy. Procedure Note David Morrison M.D. / Provider, Danyel anne M.D. - 05/10/2017 EXAM: [place] Mammo Screening w/ CADD INDICATION: screen COMPARISON: [...] documented as of this encounter Care Teams Bobbin Cleaning Machine Operator Relationship Specialty Start Date End Date Opal Vazquez M.D. PCP - General 01/18/17 07/06/19 documented as of this encounter
--- OUTSIDE RECORDS SUMMARY | 2022-06-23 11:06 | XMS_ITS | Encounter Summary ---
:1940 Author Organization [facility] Address [address] [place] [address] Care Team Providers Name Role Phone Opal Vazquez M.D. Primary Care Provider Encounter Details Date Type Department Care Team Description 03/14/2017 Hospital Encounter HX [facility]V LAB Lashawn Vazquez M.D. [address] [place] [phone] (Wo rk) Social History Tobacco [...] How often do you attend islam or orthodox Patient refused 05/13/2021 services? Do you [...] or slept in a halfway (including now)? Sex Assigned at Date Recorded Female 02/25/2018 7:29 PM CDT documented as of this encounter Medications at Time of Discharge Medication Sig Dispensed Refills Start Date End Date simvastatin (ZOCOR) 20 mg Take 1 tablet by 0 /04/201710/02/2019 tablet mouth daily. documented as of this encounter Miscellaneous Notes Miscellaneous - Opal Vazquez M.D. - 03/15/2017 12:00 AM CDT [id number] March 15, 2017 LIZZ CONTRERAS [address] [place] [id number] : 1940 Dear Ms. Contreras: This letter [...] Opal Vazquez M.D. Department of [facility] in [address] [address] Phone: [facility] Electronically Signed By: OPAL VAZQUEZ MD On: 03/15/2017 12:49 PM Modified by and Electronically Signed by: OPAL VAZQUEZ MD On: 03/15/2017 12:49 PM Source: [facility] Document Id: [id number] documented in this encounter Plan of Treatment Not on filedocumented as of this encounter Visit Diagnoses Not on filedocumented in this encounter Additional Health Concerns Assessment Noted Time PHQ-9 Depression Total Score: 1 04/08/2015 9:22 AM CDT documented as of this encounter Care Teams Director Of Public Safety Relationship Specialty Start Date End Date Opal Vazquez M.D. PCP - General 01/18/17 07/06/19 documented as of this encounter
--- OUTSIDE RECORDS SUMMARY | 2022-06-23 11:06 | XMS_ITS | Encounter Summary ---
:1940 Author Organization [facility] Address [address] [place] [address] Care Team Providers Name Role Phone Opal Vazquez M.D. Primary Care Provider Reason for Visit Reason Comments Communication Encounter Details Date Type Department Care Team Description 07/31/2017 Clinical Communication Department of Bernadine Brian, Communication MedicineBraden M.D. [facility], in [address] [address] [place], [place] [phone] [address] (Work) [phone] Social History Tobacco Use Types Packs/Day Years [...] How often do you attend baptism or protestant Patient refused 05/13/2021 services? Do [...] CST [facility] a [facility]. E POST DRIVER Telephone Encounter - Brii Montero - 07/31/2017 4:07 PM CST Patient is calling with a question on a bill from [facility] - 03-14-2017 patient has a bill to her insurance for $208.00. [phone] E POST DRIVER documented in this encounter Plan of Treatment Not on filedocumented as of this encounter Visit Diagnoses Not on filedocumented in this encounter Additional Health Concerns Assessment Noted Time PHQ-9 Depression Total Score: 1 04/08/2015 9:22 AM CDT documented as of this encounter Care Teams Wooling Machine Operator Relationship Specialty Start Date End Date Opal Vazquez M.D. PCP - General 01/18/17 07/06/19 documented as of this encounter
--- OUTSIDE RECORDS SUMMARY | 2022-06-23 11:06 | XMS_ITS | Encounter Summary ---
:1940 Author Organization [facility] Address [address] [place] [address] Care Team Providers Name Role Phone Opal Vazquez M.D. Primary Care Provider Encounter Details Date Type Department Care Team Description 03/08/2018 Hospital Encounter Department of Opal Vazquez Gastromeño sophageal Reflux Disease; Radiology in [place] Hyperlipidemia Mixed; [place], [address] Primary Osteoarthritis Multiple Sites; [place], [place] Preoperative Examination Car diovascular; [address] [address] Preoperative Examination Respiratory [place], [place] [phone] [address] (Work) [phone] Social History Tobacco Use Types Packs/Day Years [...] How often do you attend advent or muslim Patient refused 05/13/2021 services? Do [...] documented as of this encounter Care Teams Nub Card Tender Relationship Specialty Start Date End Date Opal Vazquez M.D. PCP - General 01/18/17 07/06/19 documented as of this encounter
--- OUTSIDE RECORDS SUMMARY | 2022-06-23 11:07 | XMS_ITS | Encounter Summary ---
:1940 Author Organization [facility] Address [address] [place] [address] Care Team Providers Name Role Phone Unavailable Primary Care Provider Unavailable Encounter Details Date Type Department Care Team Description 10/05/2015 Hospital Encounter HX [facility] FBHB LAB Lashawn Vazquez M.D. [address] [place], [place] [address] (Wo rk) Social History [...] How often do you attend denominational or pentecostal Patient refused 05/13/2021 services? Do [...] Routine 10/05/2015 9:15 AM Results for this CHIEF LENDING OFFICER procedure are i n the results section . documented in this encounter Results (ABNORMAL) Lipid Panel (10/05/2015 9:15 AM CHIEF LENDING OFFICER) P athologist Signature Calculated LDL 250 (H) [...] for FH and FDB is available throu [facility]: FH/ADH Genetic Reflex Coll[place] el (test ADHP). Acquired (non-genetic) causes of markedly increased LDL cholesterol include cholestatic liver disease due to the presence of LpX. If a genetic form of hypercholesterolemia is suspected, family studies including biochemical testing fo r lipids (total cholesterol,triglycerides, LDL cholesterol and HDL cholesterol) are recommended. ??Please contact the laboratory at or the on-line test catalog at [employer] for information about how to order these [...] / Volume Laterality Blood 10/05/2015 9:15 AM CHIEF LENDING OFFICER Opal Vazquez M.D. LAB BLOOD ADD-ON Performing Organization Address City/State/ZIP Code Phon e Number POWERCHART documented in this encounter Visit Diagnoses Not on filedocumented in this encounter Additional Health Concerns Assessment Noted Time PHQ-9 Depression Total Score: 1 04/08/2015 9:22 AM CDT documented as of this encounter
--- OUTSIDE RECORDS SUMMARY | 2022-06-23 11:07 | XMS_ITS | Encounter Summary ---
:1940 Author Organization [facility] Address [address] [place] [address] Care Team Providers Name Role Phone Unavailable Primary Care Provider Unavailable Encounter Details Date Type Department Care Team Description 05/31/2015 Hospital Encounter HX [facility] LAB Lashawn Vazquez M.D. [address] [place], [place] [address] (Wo rk) Social History [...] How often do you attend rastafarian or spiritism Patient refused 05/13/2021 services? Do [...] TSANG LPN On: 06/02/2015 05:27 PM Source: [facility] POWERCHART Document Id: [id number] documented in this encounter Plan of Treatment [...] at or the on-line test catalog at [employer] for information about how to order these [...] AST (Aspartate Aminotransferase) (05/31/2015 11:32 AM CDT) [facility] gist Method Time Signature Aspartate 21 8 [...]
--- OUTSIDE RECORDS SUMMARY | 2022-06-23 11:07 | XMS_ITS | Encounter Summary ---
:1940 Author Organization [facility] Address [address] [place] [address] Care Team Providers Name Role Phone Unavailable Primary Care Provider Unavailable Encounter Details Date Type Department Care Team Description 04/15/2015 Hospital Encounter HX [facility] LAB Lashawn Vazquez M.D. [address] [place], [place] [address] (Wo rk) Social History [...] How often do you attend gnosticist or lutheran Patient refused 05/13/2021 services? Do [...] TSANG LPN On: 04/19/2015 08:58 AM [facility] Document Id: [id number] documented in this encounter Miscellaneous Notes Telephone [...] returning call to nurse, please call back [phone] Message: Advice/Action: Source used: ( ) Verbalizes [...] back cell phone number ( ) Source: [facility] [employer] Document Id: [id number] Telephone Encounter - Conversion, Historical Provider Ser [...] call back R: Please call pt at [phone] after 11:00 Advice/Action: Source used: ( ) [...] back cell phone number ( ) Source: [facility] [employer] Document Id: [id number] Telephone Encounter - Conversion, Historical Provider Ser [...] to call back. From: RACHEL RODRIGUEZ ( [employer] 60 Photocopy Operator) To: ANITA Vazquez Nurse; Sent: 04/20/2015 14:58:59 [...] meds again B: A: R: Please call [phone] Message: Advice/Action: Source used: ( ) Verbalizes [...] back cell phone number ( ) Source: [facility] POWERCHART Document Id: [id number] documented in this encounter Plan of Treatment [...] tect upper gastrointestinal bleeding; the HemoQuant test (2120)should be ordered if clinically indicated. Test Performed by: [place] [address] Wood Engraver: Silvino Elizondo II, M.D., Ph.D. Specimen (Source) [...]
--- OUTSIDE RECORDS SUMMARY | 2022-06-23 11:07 | XMS_ITS | Encounter Summary ---
:1940 Author Organization [facility] Address [address] [place] [address] Care Team Providers Name Role Phone Unavailable Primary Care Provider Unavailable Encounter Details Date Type Department Care Team Description 10/07/2015 Hospital [facility]ash[facility] V[facility] M[facility]D. [address] [place], [place] [address] (Wo rk) Social History [...] How often do you attend nondenominational or zoroastrian Patient refused 05/13/2021 services? Do [...] Comments Blood Pressure 132/82 10/07/2015 11:17 AM ACTIVITIES AIDE Pulse 64 10/07/2015 11:15 AM ACTIVITIES AIDE Temperature - - Respiratory Rate 16 10/07/2015 11:15 AM ACTIVITIES AIDE Oxygen Saturation - - Inhaled Oxygen Concentration - - Weight 73.5 kg (162 lb 0.6 oz) 10/07/2015 11:15 AM ACTIVITIES AIDE Height - - Body Mass Index 27.49 04/08/2015 8:36 AM CDT documented in this encounter Progress Notes Opal Vazquez M.D. - 10/07/2015 11:05 AM CST [id number] CHIEF COMPLAINT/REASON FOR VISIT Followup labs. HISTORY [...] daily. 5. Magnesium with zinc daily. 6. [place]-3 daily. 7. Fish oil daily. 8. Vitamin [...] VAZQUEZ MD On: 10/20/2015 03:46 PM Source: [facility] MHSDOLBEYNONRADSYS Document Id: [id number] documented in this encounter Miscellaneous Notes Telephone Encounter - Conversion, Historical Provider Ser - 01/18/2016 10:39 AM CDT *Phone Message Document Contains Addenda Addendum by JEANNE TSANG LPN on January 18, 2016 11:43:50 CDT Done. Patient notified that she will need blood work. From: OPAL FELTON ( Family Medicine Dishtank Operator) To: ANITA Vazquez Nurse; Sent: 01/18/2016 10:39:05 [...] not refillable - wants call back at [phone] Advice/Action: Source used: ( ) Verbalizes understanding [...] back cell phone number ( ) Source: [facility] POWERCHART Document Id: [id number] Miscellaneous - Opal Vazquez M.D. - 10/07/2015 12:12 PM CST Ambulatory Patient Summary [address] [id number] Visit Information Name: LIZZ CONTRERAS [facility] Number: [id number] Current Date: 10/07/2015 12:12:40 [...] months This is a CHANGE Routed to Merged with [facility] [address] [place] [address] Stop Taking the Following Medications: Medication list [...] if you dont have one. Go to [email or web address] and click on Create Your Account. Then, follow the directions to complete the online form. Youll be asked for your [facility] number which you can find at the top of this document. Your Goals/Additional instructions: Source: [facility] POWERCHART Document Id: [id number] VITIES AIDE Miscellaneous - Opal Vazquez M.D. - 10/07/2015 12:12 PM CST Ambulatory Discharge Medication List [address] [id number] Visit Information Name: LIZZ CONTRERAS [facility] Number: [id number] Visit Date: 10/07/2015 12:12:39 [...] months This is a CHANGE [facility] [address] [place] [address] Stop Taking the Following Medications: Medication list [...] MD Signed On:07-OCT-2015 12:12:25 Additional Information: Source: [facility] [employer] Document Id: [id number] VITIES AIDE Miscellaneous - Jeanne Tsang L.P.N. - 10/07/2015 11:17 AM CST Ambulatory Vitals Height Weight Ambulatory Vitals Height Weight Entered On: 10/07/2015 11:18 ACTIVITIES AIDE Performed On: 10/07/2015 11:17 ACTIVITIES AIDE by JEANNE TSANG LPN Vitals/Ht/Wt Systolic Blood Pressure : 132 mmHg Diastolic Blood Pressure : 82 mmHg NIBP Mean : 99 mmHg BP Location : Left upper extremity Blood Pressure Cuff Size : Regular JEANNE TSANG LPN - 10/07/2015 11:17 ACTIVITIES AIDE Source: [facility] [employer] Document Id: [id number] ACTIVITIES AIDE!7 VITIES AIDE Miscellaneous - Jeanne Tsang L.P.N. - 10/07/2015 11:15 AM CST Adult Mulcher Operator Intake/History Adult Mulcher Operator Intake/History Entered On: 10/07/2015 11:17 ACTIVITIES AIDE Performed On: 10/07/2015 11:15 ACTIVITIES AIDE by JEANNE TSANG LPN Intake Chief Complaint [...] kg JEANNE TSANG LPN - 10/07/2015 11:15 ACTIVITIES AIDE General Info Languages : Japanese Is Patient Female and 13-50 no hysterectomy : No JEANNE TSANG LPN - 10/07/2015 11:15 ACTIVITIES AIDE Subjective Pain Symptoms : No JEANNE TSANG LPN - 10/07/2015 11:15 ACTIVITIES AIDE Dependent Habits Exposure to Tobacco Smoke : Other: former Smoking Status : Former smoker Tobacco 2A : Yes Tobacco Use/Currently Using : No Tobacco Use/Last 30 Days : No Tobacco Use/Last 12 months : No JEANNE TSANG LPN - 10/07/2015 11:15 ACTIVITIES AIDE Source: [employer] Document Id: [id number] ACTIVITIES AIDE!25 VITIES AIDE documented in this encounter Plan of Treatment Not on filedocumented as of this encounter Visit Diagnoses Not on filedocumented in this encounter Additional Health Concerns Assessment Noted Time PHQ-9 Depression Total Score: 1 04/08/2015 9:22 AM CDT documented as of this encounter
--- OUTSIDE RECORDS SUMMARY | 2022-06-23 11:07 | XMS_ITS | Encounter Summary ---
:1940 Author Organization [facility] Address [address] [place] [address] Care Team Providers Name Role Phone Unavailable Primary Care Provider Unavailable Encounter Details Date Type Department Care Team Description 07/12/2016 Hospital Encounter HX [facility]ILY[facility] Chelsey Vazquez M.D. [address] [place], [place] [address] (Wo rk) Social History [...] How often do you attend voodoo or mandaen Patient refused 05/13/2021 services? Do [...] or slept in a assisted (including now)? Sex Assigned at Date Recorded Female 02/25/2018 7:29 PM CDT documented as of this encounter Last Filed Vital Signs Vital Sign Reading Time Taken Comments Blood Pressure 134/80 07/12/2016 10:15 AM REGULATORY AFFAIRS COORDINATOR Pulse 64 07/12/2016 10:15 AM REGULATORY AFFAIRS COORDINATOR Temperature - - Respiratory Rate 12 07/12/2016 10:15 AM REGULATORY AFFAIRS COORDINATOR Oxygen Saturation - - Inhaled Oxygen Concentration - - Weight 72.5 kg (159 lb 13.3 oz) 07/12/2016 10:15 AM REGULATORY AFFAIRS COORDINATOR Height 163.5 cm (5' 4.37) 07/12/2016 10:15 AM REGULATORY AFFAIRS COORDINATOR Body Mass Index 27.12 07/12/2016 10:15 AM REGULATORY AFFAIRS COORDINATOR documented in this encounter H&P Notes Opal Vazquez M.D. - 07/12/2016 9:47 AM CST [id number] CHIEF COMPLAINT/REASON FOR VISIT Preop. HISTORY OF PRESENT ILLNESS A 76-year-old female presents to clinic for preop. Is planning to have pterygium removed with her production engineer at the [facility] 07/24/2016 in [place]. Preop evaluation requested by her surgeon. She [...] each day. 6. Niacin each day. 7. [place]-3 each day. 8. Calcium with vitamin D [...] hypertension. PLAN: To the operating room with [facility] for a pterygium removal and [...] VAZQUEZ MD On: 07/14/2016 02:27 PM Source: [facility] MHSDOLBEYNONRADSYS Document Id: [id number] LATORY AFFAIRS COORDINATOR documented in this encounter Nursing Notes Roxann Tsang L.P.NBrant - 07/13/2016 9:54 AM CST Preop Preop faxed to [facility] . Electronically Signed By: ROXANN TSANG LPN On: 07/13/2016 09:54 AM Source: [employer] Document Id: [id number] LATORY AFFAIRS COORDINATOR Roxann Tsang L.P.N. - 07/13/2016 9:53 AM CST Lab 07-12-16 Result card sent. Electronically Signed By: ROXANN TSANG LPN On: 07/13/2016 09:54 AM [facility] Document Id: [id number] LATORY AFFAIRS COORDINATOR documented in this encounter Miscellaneous Notes Miscellaneous - Opal Vazquez M.D. - 07/12/2016 6:07 PM CST Ambulatory Patient Summary [address] [id number] Visit Information Name: LIZZ CONTRERAS [facility] Number: [id number] Current Date: 07/12/2016 18:07:24 [...] cap, Oral, once a day [facility] [address] [place] [address] simvastatin (simvastatin 20 mg oral tablet) 1 [...] Date Time Location Provider 09/15/2016 08:00 [facility] TH[facility], Sanam Munguia Attention: Contact [...] if you dont have one. Go to [email or web address] and click on Create Your Account. Then, follow the directions to complete the online form. Youll be asked for your [facility] number which you can find at the top of this document. Your Goals/Additional instructions: Source: [facility] POWERCHART Document Id: [id number] LATORY AFFAIRS COORDINATOR Miscellaneous - Opal Vazquez M.D. - 07/12/2016 6:07 PM CST Ambulatory Discharge Medication List [address] [id number] Visit Information Name: LIZZ CONTRERAS [facility] Number: [id number] Current Date: 07/12/2016 18:07:23 [...] cap, Oral, once a day [facility] [address] [id number] simvastatin (simvastatin 20 mg oral tablet) 1 [...] MD Signed On:12-JUL-2016 18:07:16 Additional Information: Source: [facility] POWERCHART Document Id: [id number] LATORY AFFAIRS COORDINATOR Miscellaneous - Opal Vazquez M.D. - 07/12/2016 11:37 AM CST Obstructive Sleep Apnea Obstructive Sleep Apnea Entered On: 07/12/2016 11:37 REGULATORY AFFAIRS COORDINATOR Performed On: 07/12/2016 11:37 REGULATORY AFFAIRS COORDINATOR by OPAL VAZQUEZ MD JUSTO Screening Known Obstructive Sleep Apnea : No - NOT diagnosed with JUSTO JUSTO Score : No qualifying data available. JUSTO Results : No qualifying data available. OPAL VAZQUEZ MD - 07/12/2016 11:37 REGULATORY AFFAIRS COORDINATOR JUSTO Assessment Do you have high blood [...] 4 OPAL VAZQUEZ MD - 07/12/2016 11:37 REGULATORY AFFAIRS COORDINATOR Source: [employer] Document Id: [id number] REGULATORY AFFAIRS COORDINATOR!12 LATORY AFFAIRS COORDINATOR Miscellaneous - Roxann Tsang L.P.N. - 07/12/2016 10:15 AM CST Adult Acute Care Occupational Therapist Intake/History Adult Acute Care Occupational Therapist Intake/History Entered On: 07/12/2016 10:20 REGULATORY AFFAIRS COORDINATOR Performed On: 07/12/2016 10:15 REGULATORY AFFAIRS COORDINATOR by ROXANN TSANG LPN Intake Chief Complaint [...] kg/m2 ROXANN TSANG LPN - 07/12/2016 10:15 REGULATORY AFFAIRS COORDINATOR General Info Languages : Persian Is Patient Female and 13-50 no hysterectomy : No ROXANN TSANG LPN - 07/12/2016 10:15 REGULATORY AFFAIRS COORDINATOR Subjective Pain Symptoms : No ROXANN TSANG LPN - 07/12/2016 10:15 REGULATORY AFFAIRS COORDINATOR Dependent Habits Exposure to Tobacco Smoke : Other: former Smoking Status : Former smoker Tobacco 2A : Yes Tobacco Use/Currently Using : No Tobacco Use/Last 30 Days : No Tobacco Use/Last 12 months : No ROXANN TSANG LPN - 07/12/2016 10:15 REGULATORY AFFAIRS COORDINATOR Source: [facility] POWERCHART Document Id: [id number] REGULATORY AFFAIRS COORDINATOR!30 LATORY AFFAIRS COORDINATOR Miscellaneous - Roxann Tsang LBrantP.N. - 07/12/2016 10:15 AM CST Health Assessment Health Assessment Entered On: 07/12/2016 10:22 REGULATORY AFFAIRS COORDINATOR Performed On: 07/12/2016 10:15 REGULATORY AFFAIRS COORDINATOR by ROXANN TSANG LPN Health Assessment Complete Health Assessment Complete or Modified : Annual Health Assessment Annual Health Assessment Completed : Yes ROXANN TSANG LPN - 07/12/2016 10:15 REGULATORY AFFAIRS COORDINATOR Nutrition Nutrition Risk Factors by History Adult : None ROXANN TSANG LPN - 07/12/2016 10:15 REGULATORY AFFAIRS COORDINATOR Functional Current Daily Living Assistance : None ROXANN TASNG LPN - 07/12/2016 10:15 REGULATORY AFFAIRS COORDINATOR Dependent Habits Exposure to Tobacco Smoke : Other: former Smoking Status : Former smoker Tobacco 2A : Yes Tobacco Use/Currently Using : No Tobacco Use/Last 30 Days : No Tobacco Use/Last 12 months : No Alcohol Use : Yes ROXANN TSANG LPN - 07/12/2016 10:15 REGULATORY AFFAIRS COORDINATOR Psychosocial Domestic Abuse Concerns : None Behavioral Health Screen/Safety Assmt : Unable to obtain Christian Preference : No qualifying data available. ROXANN TSANG LPN - 07/12/2016 10:15 REGULATORY AFFAIRS COORDINATOR Advance Directive Advanced Directives : Yes Advance Directive Type : Living will Advance Directive Location : Other: pt will bring copy ROXANN TSANG LPN - 07/12/2016 10:15 REGULATORY AFFAIRS COORDINATOR Educ Needs Learning Style Preference Adult Grid Patient : Printed materials, Demonstration, Verbal explanation, Video/Educational TV Family : Printed materials, Demonstration, Verbal explanation, Video/Educational TV ROXANN TSANG LPN 07/12/2016 10:15 REGULATORY AFFAIRS COORDINATOR Source: [facility] POWERCHART Document Id: [id number] REGULATORY AFFAIRS COORDINATOR!28 LATORY AFFAIRS COORDINATOR documented in this encounter Plan of Treatment Not on filedocumented as of this encounter Procedures Procedure Name Priority Date/Time Associated Diagnosis Comme nts AUTOMATED Routine 07/12/2016 11:33 AM Results for this DIFFERENTIAL, B REGULATORY AFFAIRS COORDINATOR procedure ar e in the results section. CBC WITH Routine 07/12/2016 11:33 AM Results for this DIFFERENTIAL, B REGULATORY AFFAIRS COORDINATOR procedure ar e in the results section. BASIC METABOLIC Routine 07/12/2016 11:33 AM Resul ts for this PANEL, S/P REGULATORY AFFAIRS COORDINATOR procedure are i n the results section. ECG Routine 07/12/2016 11:21 AM Results for this REGULATORY AFFAIRS COORDINATOR procedure are i n the results section. documented in this encounter Results Automated Differential (07/12/2016 11:33 AM REGULATORY AFFAIRS COORDINATOR) P athologist Signature Absolute 3.60 1.70 - POWERCHART Neutrophils 7.00 109L Lymphocytes 2.89 0.90 - POWERCHART 2.90 X109L Monocytes 0.57 0.30 - POWERCHART 0.90 X109L Eosinophils 0.11 0.05 - POWERCHART 0.50 X109L Absolute 0.03 0.00 - POWERCHART Basophil 0.30 X109L Specimen Anatomical Collection Method Collection Time Receive d Time (Source) Location / / Volume Laterality Blood 07/12/2016 11:33 07/12/2016 AM REGULATORY AFFAIRS COORDINATOR 11:33 AM REGULATORY AFFAIRS COORDINATOR Opal Vazquez M.D. LAB BLOOD ADD-ON Performing Organization Address City/State/ZIP Code Phon e Number POWERCHART CBC with Differential (07/12/2016 11:33 AM REGULATORY AFFAIRS COORDINATOR) P athologist Signature Leukocytes 7.2 3.4 - 10.5 POWERCHART X109L Erythrocytes 4.57 3.90 - 5.03 POWERCHART [id number] Hemoglobin 14.4 12.0 - 15.5 POWERCHART GDL Hematocrit 40.9 34.9 - 44.5 POWERCHART MCV 89.5 82.0 - 98.0 POWERCHART FL HX RDW 12.7 11.9 - 15.5 POWERCHART Platelet Count 218 150 - 450 POWERCHART X109L Specimen (Source) Anatomical Collection Method Collection Time Re ceived Time Location / / Volume Laterality Blood 07/12/2016 11:33 AM REGULATORY AFFAIRS COORDINATOR Opal Vazquez M.D. LAB BLOOD ADD-ON Performing Organization Address City/State/ZIP Code Phon e Number POWERCHART (ABNORMAL) BMP (Basic Metabolic Panel) (07/12/2016 11:33 AM REGULATORY AFFAIRS COORDINATOR) P athologist Signature Sodium, S 139 135 [...] POWERCHART MMOLL HXeGFR (MDRD) >60 >=60 POWERCHART [id number] eGFR >60 >=60 POWERCHART Black/ [id number] [place] Glucose 95 70 - 139 POWERCHART MGDL Specimen (Source) Anatomical Collection Method Collection Time Re ceived Time Location / / Volume Laterality Blood 07/12/2016 11:33 AM REGULATORY AFFAIRS COORDINATOR Opal Vazquez M.D. LAB BLOOD ADD-ON Performing Organization Address City/State/ZIP Code Phon e Number POWERCHART ECG 12 Lead (07/12/2016 11:21 AM REGULATORY AFFAIRS COORDINATOR) Specimen (Source) Anatomical Collection Method Collection Time Re ceived Time Location / / Volume Laterality 07/12/2016 11:21 AM REGULATORY AFFAIRS COORDINATOR [facility] - 07/12/2016 11:21 AM REGULATORY AFFAIRS COORDINATOR Test Reason : PREOP, ELEVATED BP WITHOUT [...] Organization Address City/State/ZIP Code Phon e Number [facility] [address] [place] [id number] documented in this encounter Visit Diagnoses Not on filedocumented in this encounter Additional Health Concerns Assessment Noted Time PHQ-9 Depression Total Score: 1 04/08/2015 9:22 AM CDT documented as of this encounter
--- OUTSIDE RECORDS SUMMARY | 2022-06-23 11:07 | XMS_ITS | Encounter Summary ---
:1940 Author Organization [facility] Address [address] [place] [address] Care Team Providers Name Role Phone Unavailable Primary Care Provider Unavailable Encounter Details Date Type Department Care Team Description 11/08/2012 Hospital Encounter HX [facility] FB Lashawn Garcia M.D. [address] [place], [place] [address] (Wo rk) Social History [...] How often do you attend anabaptism or nondenominational Patient refused 05/13/2021 services? Do [...]
--- OUTSIDE RECORDS SUMMARY | 2022-06-23 11:07 | XMS_ITS | Encounter Summary ---
:1940 Author Organization [facility] Address [address] [place] [address] Care Team Providers Name Role Phone Unavailable Primary Care Provider Unavailable Encounter Details Date Type Department Care Team Description 11/06/2012 Hospital [facility] Lashawn Vazquez M.D. [address] [place], [place] [address] (Wo rk) Social History [...] How often do you attend alevism or yarsanism Patient refused 05/13/2021 services? Do you belong to any clubs or organizations such as Patient refused 05/13/2021 alevism groups, unions, fraternal or athletic groups, or [...] Vazquez M.D. - 11/06/2012 8:12 AM CDT [id number] CHIEF COMPLAINT/REASON FOR VISIT Annual examination HISTORY [...] nails. Irritated skin lesion on the left jain which has been present for 2 years [...] secondary to stated age. Colon screen: 07/[facility] [address] Baum. Declines colonoscopy this [...] lesion nearly a centimeter on the left jain. HEAD: No trauma, tenderness or masses. EYES: [...] and or biopsy site on the left jain given the duration and the finding. Signs [...] VAZQUEZ MD On: 11/08/2012 12:21 PM Source: [facility] MHSDOLBEYNONRADSYS Document Id: [id number] documented in this encounter Nursing Notes Eugenia Ching L.P.NBrant - 03/23/2015 10:09 AM CDT Pre-op fax[facility] Pre-op information including office note from 03/19/2015, lab work, sleep apnea screening, and chest x-ray faxed to [facility] for patient's upcoming surgery on 03/25/2015. Electronically Signed By: EUGENIA CHING LPN On: 03/23/2015 10:10 AM Source: [facility] [employer] Document Id: [id number] Roxann Tsang L.P.NBrant - 11/08/2012 4:38 PM CDT Labs 4-3-13 Result card sent. Electronically Signed By: ROXANN TSANG LPN On: 11/08/2012 04:38 PM Source: [facility] [employer] Document Id: [id number] documented in this encounter Miscellaneous Notes Telephone Encounter - Opal Vazquez M.D. - 11/22/2012 12:00 AM CDT [id number] Patient's cholesterol is elevated. Would recommend a cholesterol lowering medication. Would recommend following up in the clinic to discuss this finding. Card is sent to patient in regards to this issue. Opal Vazquez M.D./tamika Electronically Signed By: OPAL VAZQUEZ MD On: 11/25/2012 12:24 PM Modified by and Electronically Signed by: OPAL VAZQUEZ MD On: 11/25/2012 12:24 PM Source: [facility] MHSDOLBEYNONRADSYS Document Id: [id number] Miscellaneous - Opal Vazquez M.D. - 11/06/2012 12:34 PM CDT Ambulatory Depart Summary [address] [address] Visit Information Name: LIZZ CONTRERAS [facility] Number: [id number] Visit Date: 11/06/2012 12:33:59 Attending [...] your provider for clarification. Additional Information: Source: [facility] POWERCHART Document Id: [id number] Miscellaneous - Opal Vazquez M.D. - 11/06/2012 12:34 PM CDT Ambulatory Patient Summary [address] [place] [address] Visit Information Name: LIZZ CONTRERAS [facility] Number: [id number] Current Date: 11/06/2012 12:34:00 Physicians [...] 11/18/2012 14:00 FBCV Surgeon skin lesion left jain to be removed or biopsied BautistaBraden hawkins MD 11/22/2012 08:45 FBHB Lab Your Goals/Additional instructions: Source: [facility] POWERCHART Document Id: [id number] Miscellaneous - Roxann Tsang L.P.N. - 11/06/2012 8:37 AM CDT Adult Pigment Processor Intake/History Adult Pigment Processor Intake/History Entered On: 11/06/2012 8:41 CDT Performed [...] 11/06/2012 8:37 CDT General Info Languages : Samoan ROXANN TSANG LPN - 11/06/2012 8:37 CDT [...] MD; Reviewed Date: 11/06/2012 8:36 CDT Source: [facility] POWERCHART Document Id: [id number] Miscellaneous - Roxann Tsang L.P.NBrant - 11/06/2012 [...] TSANG LPN - 11/06/2012 8:37 CDT [facility] Document Id: [id number] documented in this encounter Plan of Treatment [...] % 36.0 19.3 - 51.7 POWERCHART HX [place] % 9.0 4.7 - 12.5 POWERCHART HX [...] X109L Erythrocytes 4.50 3.90 - POWERCHART 5.03 V9320W Hemoglobin 13.7 12.0 - POWERCHART 15.5 GDL [...] POWERCHART 1,25-Dihydroxyvitamin D (11/06/2012 9:48 AM CDT) [facility] Healthcare[facility] Method Time Signature 1, 25 28 18 - 78 POWERCHART DIHYDROXYVITAMIN D, PGML S Comment: Test Performed by: [facility] [place] [address] Suction Worker: Vernon wall III, M.D. Specimen (Source) Anatomical Collection Method Collection Time Re ceived Time Location / / Volume Laterality Blood 11/06/2012 9:48 AM CDT Opal Vazquez M.D. LAB BLOOD ADD-ON Performing Organization Address City/[facility]/ZIP Code Phon e Number POWERCHART (ABNORMAL) BMP [...] M.D. LAB BLOOD ADD-ON Performing Organization Address City/[facility] Code Phon e Number POWERCHART (ABNORMAL) Dipstick, Urine (11/06/2012 9:12 AM CDT) Patholo gist Method Time Signature Source Clean Void POWERCHART Urine HXUr Color Yellow POWERCHART Appearance Clear POWERCHART Glucose Negative Negative POWERCHART HXBILIRUBIN Negative Negative POWERCHART Ketones, QL(U) Negative Negative POWERCHART Specific 1.015 1.020 POWERCHART [place], POCT, U HXBLOOD Negative Negative POWERCHART pH, [...]
--- OUTSIDE RECORDS SUMMARY | 2022-06-23 11:07 | XMS_ITS | Encounter Summary ---
:1940 Author Organization [facility] Address [address] [place] [address] Care Team Providers Name Role Phone Unavailable Primary Care Provider Unavailable Encounter Details Date Type Department Care Team Description 03/31/2010 Hospital Encounter [facility] [place] Lashawn Vazquez M.D. [address] [place], [place] [address] (Wo rk) Social History [...] 05/13/2021 relatives? How often do you attend muslim or quaker Patient refused 05/13/2021 services? Do you belong to any clubs or organizations such as Patient refused 05/13/2021 muslim groups, unions, fraternal or athletic groups, or [...] Vazquez M.D. - 03/31/2010 12:00 AM CDT [id number] IMPRESSION/REPORT/PLAN 1. Annual exam. 2. Hyperlipidemia. 3. [...] 03-12-2008. Influenza fall of 2008 at the [employer] where she is employed. DEXA scan declined. [...] VAZQUEZ MD On 04/04/2010 02:51 pm Source: [facility] MHSDOLBEYNONRADSYS Document Id: [id number] documented in this encounter Nursing Notes Jeanne Tsang L.PBrantN. - 03/31/2010 4:54 PM CDT Labs 03-31-10 Result card sent per Dr. Vazquez. Electronically Signed By:JEANNE TSANG LPN On 03/31/2010 04:54 pm Source: [facility] POWERCHART Document Id: [id number] documented in this encounter Miscellaneous Notes Miscellaneous - Jeanne Tsang L.P.N. - 03/31/2010 11:01 AM CDT Adult Speech Language Pathologist Travel Intake/History Adult Speech Language Pathologist Travel Intake/History Entered On: 03/31/2010 11:03 CDT Performed [...] MD; Reviewed Date: 03/28/2010 17:13 CDT [facility] Document Id: [id number] CDT!19 documented in this encounter Plan of Treatment Not on filedocumented as of this encounter Visit Diagnoses Not on filedocumented in this encounter
--- OUTSIDE RECORDS SUMMARY | 2022-06-23 11:07 | XMS_ITS | Encounter Summary ---
:1940 Author Organization [facility] Address [address] [place] [address] Care Team Providers Name Role Phone Unavailable Primary Care Provider Unavailable Encounter Details Date Type Department Care Team Description 04/14/2015 Hospital Encounter HX [facility] Lashawn Vazquez M.D. [address] [place], [place] [address] (Wo rk) Social History [...] 05/13/2021 relatives? How often do you attend adventism or congregation Patient refused 05/13/2021 services? Do you belong to any clubs or organizations such as Patient refused 05/13/2021 adventism groups, unions, fraternal or athletic groups, or [...] TSANG LPN On: 04/15/2015 09:20 AM [email or web address] Document Id: [id number] documented in this encounter Miscellaneous Notes Telephone Encounter - Conversion, Historical Provider Ser - 04/15/2015 10:00 AM CDT *Phone Message Document Contains Addenda Addendum by JEANNE TSNAG LPN on 15 April 2015 10:55:44 CDT done, patient notified. From: REID PAT ([facility] Offset Press Operator Helper) To: ANITA Vazquez Nurse; Sent: 04/15/2015 10:00:25 CDT Subject: *Phone Message Caller is: ( x ) Patient ( ) Mother ( ) Father ( ) Spouse ( ) Daughter ( ) Son ( ) Pharmacy ( ) Other: Physician: Patient MRN #: Reason for Call: S: Patient dropped off a Fit Test at the [facility] this morning. There is no [...] back cell phone number ( ) Source: [facility] POWERCHART Document Id: [id number] documented in this encounter Plan of Treatment [...] AST (Aspartate Aminotransferase) (04/14/2015 7:59 AM CDT) [facility] Method Time Signature Aspartate 20 8 [...] FH and FDB is available [facility]: FH/ADH Genetic Reflex Collado el (test ADHP). Acquired (non-genetic) causes of markedly increased LDL cholesterol include cholestatic liver disease due to the presence of LpX. If a genetic form of hypercholesterolemia is suspected, family studies including biochemical testing fo r lipids (total cholesterol,triglycerides, LDL cholesterol and HDL cholesterol) are recommended. ??Please contact the laboratory at or the on-line test catalog at [employer] for information about how to order these [...]
--- OUTSIDE RECORDS SUMMARY | 2022-06-23 11:07 | XMS_ITS | Encounter Summary ---
:1940 Author Organization [facility] Address [address] [place] [address] Care Team Providers Name Role Phone Unavailable Primary Care Provider Unavailable Encounter Details Date Type Department Care Team Description 04/08/2010 Hospital Encounter HX [facility] Lashawn Vazquez M.D. [address] [place], [place] [address] (Wo rk) Social History [...] 05/13/2021 relatives? How often do you attend taoist or sabianism Patient refused 05/13/2021 services? Do you belong to any clubs or organizations such as Patient refused 05/13/2021 taoist groups, unions, fraternal or athletic groups, or [...] Vazquez M.D. - 04/08/2010 12:00 AM CDT [id number] Patient's cholesterol was quite elevated. Her fasting blood sugar was stable. Would recommend following up in the clinic to discuss various options. Card is sent to the patient in regards to this issue. NORA/judi Signed Opal Vazquez M.D. Family Medicine Electronically Signed By:OPAL VAZQUEZ MD On 04/13/2010 06:38 PM Source: [facility] MHSDOLBEYNONRADSYS Document Id: [id number] documented in this encounter Nursing Notes Jeanne Tsang, L.P.N. - 04/08/2010 11:34 AM CDT Labs 9-3-10 Result card sent per Dr. Vazquez. Electronically Signed By:JEANNE TSANG LPN On 04/08/2010 11:34 am Source: [facility] POWERCHART Document Id: [id number] documented in this encounter Plan of Treatment Not on filedocumented as of this encounter Visit Diagnoses Not on filedocumented in this encounter
--- OUTSIDE RECORDS SUMMARY | 2022-06-23 11:07 | XMS_ITS | Encounter Summary ---
:1940 Author Organization [facility] Address [address] [place] [address] Care Team Providers Name Role Phone Unavailable Primary Care Provider Unavailable Encounter Details Date Type Department Care Team Description 04/08/2015 Hospital En[facility] Lashawn Vazquez M.D. [address] [place], [place] [address] (Wo rk) Social History [...] How often do you attend rastafari or hinduism Patient refused 05/13/2021 services? Do [...] Vazquez M.D. - 04/08/2015 8:04 AM CDT [id number] CHIEF COMPLAINT/REASON FOR VISIT Annual Medicare wellness exam. HISTORY OF PRESENT ILLNESS A 74-year-old female presents to clinic for her annual Medicare wellness exam. She is, generally speaking, doing quite well. She is not fasting today but would be happy to come in on the . She is being followed closely by her loans officer, Dr. Ortez, for dry eyes. Her last [...] daily. 5. Magnesium with zinc daily. 6. [place]-3 daily. 7. Fish oil daily. 8. Vitamin [...] VAZQUEZ MD On: 04/09/2015 07:47 PM Source: [facility] MHSDOLBEYNONRADSYS Document Id: [id number] documented in this encounter Miscellaneous Notes Telephone Encounter - Opal Vazquez M.D. - 10/06/2015 12:00 AM CST [id number] Patient's total cholesterol 339, triglycerides 185, LDL [...] VAZQUEZ MD On: 10/20/2015 08:00 AM Source: [facility] MHSDOLBEYNONRADSYS Document Id: [id number] Miscellaneous - Conversion, Historical Provider Ser - 09/21/2015 11:33 AM RESIDENT PROGRAMS ASSISTANT *General Ortega/Taylor Document Contains Addenda Addendum by ROXANN TSANG LPN on 21 September 2015 12:43:06 RESIDENT PROGRAMS ASSISTANT Patient notified that order is in queue. Advised per Dr. Vazquez that she needs a follow up appointment after her labs. From: ANDI [facility]LE[facility] ( [facility] Public Policy Associate) To: ANITA Vazquez Nurse; Sent: 09/21/2015 11:33:58 RESIDENT PROGRAMS ASSISTANT Subject: *General Message/Taylor Lizz was supposed to come back for a lipid...but there is no order in the queue. Please call Lizz at [phone] when the order is in so she can set up a lab appointment. Source: [facility] POWERCHART Document Id: [id number] Telephone Encounter - Opal Vazquez M.D. - 06/02/2015 12:00 AM CDT [id number] Patient's total cholesterol is 269, triglycerides 214, [...] VAZQUEZ MD On: 06/04/2015 10:12 AM Source: [facility] MHSDOLBEYNONRADSYS Document Id: [id number] Telephone Encounter - Conversion, Historical Provider Ser - 04/23/2015 8:23 AM CDT *Phone Message/dr vazquez Document Contains Addenda Addendum by ROXANN TSANG LPN on 23 April 2015 10:10:26 CDT See phone note 9-15-15 From: BHAKTI NOBLE ([facility] Public Policy Associate) To: ANITA Vazquez Nurse; Sent: 04/23/2015 08:23:28 CDT Subject: *Phone Message/dr vazquez Caller is: ( x ) Patient ( ) Mother ( ) Father ( ) Spouse ( ) Daughter ( ) Son ( ) Pharmacy ( ) Other: Physician: Patient MRN #: Reason for Call: S patient returning your call Julia Mohamud [phone] Message: Advice/Action: Source used: ( ) Verbalizes [...] back cell phone number ( ) Source: [facility] POWERCHART Document Id: [id number] Telephone Encounter - Opal Vazquez M.D. - 04/23/2015 12:00 AM CDT [id number] Patient has elevated cholesterol. She is interested [...] VAZQUEZ MD On: 04/23/2015 06:29 PM Source: [facility] MHSDOLBEYNONRADSYS Document Id: [id number] Telephone Encounter - Conversion, Historical Provider Ser - 04/22/2015 9:07 AM CDT *Phone Message/dr vazquez Document Contains Addenda Addendum by ROXANN TSANG LPN on 22 April 2015 09:55:50 CDT See phone note 9-15-15. From: BHAKTI NOBLE ([facility] Public Policy Associate) To: ANITA Vazquez Nurse; Sent: 04/22/2015 09:07:10 CDT Subject: *Phone Message/dr vazquez Caller is: (x ) Patient ( ) Mother ( ) Father ( ) Spouse ( ) Daughter ( ) Son ( ) Pharmacy ( ) Other: Physician: Patient MRN #: Reason for Call: S patient returning your call about cholesterol medication B A R can call [phone] Message: Advice/Action: Source used: ( ) Verbalizes [...] back cell phone number ( ) Source: [facility] POWERCHART Document Id: [id number] Telephone Encounter - Opal Vazquez M.D. - 04/14/2015 12:00 AM CDT [id number] Total cholesterol is 327, triglycerides 314, HDL [...] VAZQUEZ MD On: 04/15/2015 08:16 AM Source: [facility] MHSDOLBEYNONRADSYS Document Id: [id number] Miscellaneous - Opal Vazquez M.D. - 04/09/2015 12:26 PM CDT Ambulatory Patient Summary [address] [id number] Visit Information Name: LIZZ CONTRERAS [facility] Number: [id number] Current Date: 04/09/2015 12:26:48 [...] you dont have one. Go to [email or web address] and click on Create Your Account. Then, follow the directions to complete the online form. Youll be asked for your [facility] number which you can find at the top of this document. Your Goals/Additional instructions: Source: [facility] POWERCHART Document Id: [id number] Miscellaneous - Opal Vazquez M.D. - 04/09/2015 12:26 PM CDT Ambulatory Discharge Medication List [address] [id number] Visit Information Name: EDITH CONTRERASSHAHRAMJonny [facility] Number: [id number] Visit Date: 04/09/2015 12:26:47 [...] MD Signed On:09-APR-2015 12:26:36 Additional Information: Source: [facility] POWERCHART Document Id: [id number] Miscellaneous - Opal Vazquez M.D. - 04/08/2015 [...] VAZQUEZ MD - 04/08/2015 9:22 CDT Source: [facility] [employer] StoriesCHART Document Id: [id number] CDT!13 Miscellaneous - Roxann Tsang L.P.N. - 04/08/2015 8:36 AM CDT Adult Golf Caddy Intake/History Adult Golf Caddy Intake/History Entered On: 04/08/2015 8:39 CDT Performed [...] 04/08/2015 8:36 CDT General Info Languages : Slovak Is Patient Female and 13-50 no hysterectomy [...] TSANG LPN - 04/08/2015 8:36 CDT Source: [employer] Document Id: [id number] CDT!34 Miscellaneous - Roxann Tsang LBrantP.NBrant - [...] None Behavioral Health Screen/Safety Assmt : No Faith Preference : No qualifying data available. ROXANN [...] TSANG LPN - 04/08/2015 8:36 CDT Source: [employer] Document Id: [id number] CDT!24 documented in this encounter Plan of Treatment Not on filedocumented as of this encounter Visit Diagnoses Not on filedocumented in this encounter Additional Health Concerns Assessment Noted Time PHQ-9 Depression Total Score: 1 04/08/2015 9:22 AM CDT documented as of this encounter
--- OUTSIDE RECORDS SUMMARY | 2022-06-23 11:07 | XMS_ITS | Encounter Summary ---
:1940 Author Organization [facility] Address [address] [place] [address] Care Team Providers Name Role Phone Unavailable [...] 05/13/2021 relatives? How often do you attend spiritism or protestant Patient refused 05/13/2021 services? Do you belong to any clubs or organizations such as Patient refused 05/13/2021 spiritism groups, unions, fraternal or athletic groups, or [...] has a 1-cm lesion of the left spiritism area. HISTORY OF PRESENT ILLNESS There has [...] ELIAS MD On: 12/20/2012 10:48 AM Source: [facility] MHSDOLBEYNONRADSYS Document Id: [id number] Braden Elias M.D. - 11/18/2012 12:00 AM CDT 1RPT CHIEF COMPLAINT/REASON FOR VISIT Left spiritism lesion. HISTORY OF PRESENT ILLNESS The patient is referred by Dr. Vazquez because of a 1 cm lesion of her left spiritism. PROCEDURE After prepping and 1% lidocaine with epinephrine and Neut local infiltration, a 2 mm punch biopsy was taken from the center of this lesion. The wound was cleaned with peroxide. Bacitracin ointment and Band-Aid were placed on the biopsy site. The specimen was sent to pathology. IMPRESSION/REPORT/PLAN Punch biopsy of left spiritism lesion. She will return for the results of the biopsy in a couple of weeks. Braden Elias M.D./anup Electronically Signed By: BRADEN ELIAS MD On: 01/12/2013 05:15 PM Source: [facility] MHSDOLBEYNONRADSYS Document Id: [id number] documented in this encounter Miscellaneous Notes Miscellaneous - Braden Elias M.D. - 11/18/2012 2:25 PM CDT Ambulatory [place] [address] Visit Information Name: LIZZ CONTRERAS [facility] Number: [id number] Current Date: 11/18/2012 14:25:32 Physicians [...] 08:45 FB Lab Your Goals/Additional instructions: Source: [facility] POWERCHART Document Id: [id number] Miscellaneous - Braden Elias M.D. - 11/18/2012 2:25 PM CDT Ambulatory [place] [address] Visit Information Name: LIZZ CONTRERAS [facility] Number: [id number] Visit Date: 11/18/2012 14:25:31 Attending [...] your provider for clarification. Additional Information: Source: [facility] POWERCHART Document Id: [id number] Miscellaneous - Tammie Kaye, R.N. - 11/18/2012 1:46 PM CDT Adult Orthotist Intake/History Adult Orthotist Intake/History Entered On: 11/18/2012 13:47 CDT Performed On: 11/18/2012 13:46 CDT by TAMMIE KAYE Intake Chief Complaint : Skin lesion left spiritism remove or biopsy Temperature Core : 36.2 DegC(Converted to: 97.2 DegF) (LOW) Systolic Blood Pressure : 122 mmHg Diastolic Blood Pressure : 64 mmHg NIBP Mean : 83 mmHg BP Location : Right upper extremity Blood Pressure Cuff Size : Regular TAMMIE KAYE S - 11/18/2012 13:46 CDT General Info Languages : Wolof TAMMIE KAYE S - 11/18/2012 13:46 CDT Subjective Pain Symptoms : No TAMMIE KAYE - 11/18/2012 13:46 CDT Dependent Habits Tobacco Use/Currently Using : No Exposure to Tobacco Smoke : Other: former Smoking Status : Unknown if ever smoke TAMMIE KAYE S - 11/18/2012 13:46 CDT Source: [employer] Document Id: [id number] CDT!17 documented in this encounter Plan of [...] Received Time / Laterality Volume 11/18/2012 Narrative [facility] - 12/09/19 13 5:43 PM CDT PATIENT IMAGES Choose the Image button to view related documents. Historical Provider LAB SURG PATH ORDERABLES Performing Organization Address City/State/ZIP Code Phon e Number [facility] documented in this encounter Visit Diagnoses Not on filedocumented in this encounter
--- OUTSIDE RECORDS SUMMARY | 2022-06-23 11:07 | XMS_ITS | Encounter Summary ---
:1940 Author Organization [facility] Address [address] [place] [address] Care Team Providers Name Role Phone Unavailable Primary Care Provider Unavailable Encounter Details Date Type Department Care Team Description 10/22/2015 Hospital Encounter HX [facility] Lashawn Vazquez M.D. [address] [place] [address] (Wo rk) Social History Tobacco [...] 05/13/2021 relatives? How often do you attend druze or pentecostal Patient refused 05/13/2021 services? Do you belong to any clubs or organizations such as Patient refused 05/13/2021 druze groups, unions, fraternal or athletic groups, or [...] TSANG LPN On: 10/25/2015 08:38 AM Source: [facility] POWERCHART Document Id: [id number] documented in this encounter Plan of Treatment Not on filedocumented as of this encounter Procedures Procedure Name Priority Date/Time Associated Comments Diagnosis ASPARTATE Routine 10/22/2015 8:43 Results for this AMINOTRANSFERASE (AST), AM CDT proc edure are in S/P the results section. documented in this encounter Results AST (Aspartate Aminotransferase) (10/22/2015 8:43 AM CDT) [facility] gist Method Time Signature Aspartate 26 [...]
--- OUTSIDE RECORDS SUMMARY | 2022-06-23 11:07 | XMS_ITS | Encounter Summary ---
:1940 Author Organization [facility] Address [address] [place] [address] Care Team Providers Name Role Phone Unavailable Primary Care Provider Unavailable Encounter Details Date Type Department Care Team Description 05/24/2016 Hospital Encounter HX [facility] Lashawn Vazquez M.D. [address] [place], [place] [address] (Wo rk) Social History [...] How often do you attend yazidism or moravian Patient refused 05/13/2021 services? Do [...] 05-24-16 Result card sent. Electronically Signed By: JAENNE TSANG LPN On: 06/07/2016 05:02 PM Source: [facility] POWERCHART Document Id: [id number] documented in this encounter Plan of Treatment [...] [facility] FH/ADH Genetic Reflex Collado el (test ADHP). Acquired (non-genetic) causes of markedly increased LDL cholesterol include cholestatic liver disease due to the presence of LpX. If a genetic form of hypercholesterolemia is suspected, family studies including biochemical testing fo r lipids (total cholesterol,triglycerides, LDL cholesterol and HDL cholesterol) are recommended. ??Please contact the laboratory at or the on-line test catalog at [employer] for information about how to order these [...] AST (Aspartate Aminotransferase) (05/24/2016 7:51 AM CDT) [facility] gist Method Time Signature Aspartate 32 8 [...]
--- OUTSIDE RECORDS SUMMARY | 2022-06-23 11:07 | XMS_ITS | Encounter Summary ---
:1940 Author Organization [facility] Address [address] [place] [address] Care Team Providers Name Role Phone Unavailable Primary Care Provider Unavailable Encounter Details Date Type Department Care Team Description 11/22/2012 Hospital Encounter HX [facility] Lashawn Vazquez M.D. [address] [place], [place] [address] (Wo rk) Social History [...] How often do you attend sabianist or restoration Patient refused 05/13/2021 services? Do [...] TSANG LPN On: 11/22/2012 04:54 PM Source: [facility] POWERCHART Document Id: [id number] documented in this encounter Plan of Treatment Not on filedocumented as of this encounter Procedures Procedure Name Priority Date/Time Associated Diagnosis Comme nts LIPID PANEL, S Routine 11/22/2012 8:41 AM Results for this CDT procedure are i n the results section . documented in this encounter Results (ABNORMAL) Lipid Panel (11/22/2012 8:41 AM CDT) [facility] gist Method Time Signature Cholesterol, Total [...]
--- OUTSIDE RECORDS SUMMARY | 2022-06-23 11:07 | XMS_ITS | Encounter Summary ---
:1940 Author Organization [facility] Address [address] [place] [address] Care Team Providers Name Role Phone Unavailable Primary Care Provider Unavailable Encounter Details Date Type Department Care Team Description 01/19/2016 Hospital Encounter HX [facility] Lashawn Vazquez M.D. [address] [place], [place] [address] (Wo rk) Social History [...] How often do you attend methodist or latter-day Patient refused 05/13/2021 services? Do [...] for FH and FDB is available throu [facility]: FH/ADH Genetic Reflex Collado el (test ADHP). Acquired (non-genetic) causes of markedly increased LDL cholesterol include cholestatic liver disease due to the presence of LpX. If a genetic form of hypercholesterolemia is suspected, family studies including biochemical testing fo r lipids (total cholesterol,triglycerides, LDL cholesterol and HDL cholesterol) are recommended. ??Please contact the laboratory at or the on-line test catalog at [email or web address] for information about how to order these [...] AST (Aspartate Aminotransferase) (01/19/2016 9:13 AM CDT) [facility] gist Method Time Signature Aspartate 23 [...]
--- OUTSIDE RECORDS SUMMARY | 2022-06-23 11:07 | XMS_ITS | Encounter Summary ---
:1940 Author Organization [facility] Address [address] [place] [address] Care Team Providers Name Role Phone Unavailable Primary Care Provider Unavailable Encounter Details Date Type Department Care Team Description 04/15/2008 Hospital Encounter HX NO MAPPING Opal Vazquez M.D. [address] [place] [address] (Wo rk) Social History Tobacco [...] How often do you attend taoist or hoahaoism Patient refused 05/13/2021 services? Do [...]
--- OUTSIDE RECORDS SUMMARY | 2022-06-23 11:07 | XMS_ITS | Encounter Summary ---
:1940 Author Organization [facility] Address [address] [place] [address] Care Team Providers Name Role Phone Unavailable Primary Care Provider Unavailable Encounter Details Date Type Department Care Team Description 03/19/2015 Hospital En[facility] Lashawn Vazquez M.D. [address] [place], [place] [address] (Wo rk) Social History [...] How often do you attend scientologist or sikhism Patient refused 05/13/2021 services? Do [...] Vazquez M.D. - 03/19/2015 9:42 AM CDT [id number] CHIEF COMPLAINT/REASON FOR VISIT Preop. HISTORY OF [...] daily. 5. Magnesium with zinc daily. 6. [place]-3 daily. 7. Fish oil daily. 8. Vitamin B12 daily. All of the above to be held beginning today for her upcoming surgery. PREVENTIVE SERVICES Tobacco: None. Mammogram: 2002 declines. Pap smear: Nonapplicable secondary to stated age. Chlamydia: Not applicable secondary to stated age. Colon screen: 07/[address] [facility] with [address]. Baum. Declines colonoscopy this year [...] M.D./saul cc: [facility] Amol Noyola M.D. [address] [place] [address] Electronically Signed By: OPAL VAZQUEZ MD On: 03/22/2015 01:39 PM Modified by and Electronically Signed by: OPAL VAZQUEZ MD On: 03/22/2015 01:39 PM Source: [facility] MHSDOLBEYNONRADSYS Document Id: [id number] documented in this encounter Nursing Notes Roxann Tsang L.P.N. - 03/23/2015 11:36 AM CDT Labs 03-19-15 Result card sent. Electronically Signed By: ROXANN TSANG LPN On: 03/23/2015 11:36 AM Source: [employer] Document Id: [id number] Roxann Tsang L.P.N. - 03/23/2015 11:36 AM CDT preop Preop faxed to [facility]. Electronically Signed By: ROXANN TSANG LPN On: 03/23/2015 11:36 AM Source: [facility] POWERCHART Document Id: [id number] documented in this encounter Miscellaneous Notes Miscellaneous - Opal Vazquez M.D. - 03/21/2015 9:30 AM CDT Ambulatory Patient Summary [address] [id number] Visit Information Name: LIZZ CONTRERAS [facility] Number: [id number] Current Date: 03/21/2015 09:30:16 [...] Appointments Date Time Location Provider 04/08/2015 08:15 [facility] Vaz[facility] MD Attention: Contact your local [...] if you dont have one. Go to [email or web address] and click on Create Your Account. Then, follow the directions to complete the online form. Youll be asked for your [facility] number which you can find at the top of this document. Your Goals/Additional instructions: Source: [facility] POWERCHART Document Id: [id number] Miscellaneous - Opal Vazquez M.D. - 03/21/2015 9:30 AM CDT Ambulatory Discharge Medication List [address] [id number] Visit Information Name: LIZZ CONTRERAS [facility] Number: [id number] Visit Date: 03/21/2015 09:30:15 [...] MD Signed On:21-MAR-2015 09:30:03 Additional Information: Source: [facility] POWERCHART Document Id: [id number] Miscellaneous - Opal Vazquez M.D. - 03/19/2015 [...] VAZQUEZ MD - 03/19/2015 10:51 CDT Source: [facility] [employer] Document Id: [id number] CDT!12 Miscellaneous - Roxann Tsang L.P.N. - 03/19/2015 10:02 AM CDT Adult Cash Sales Audit Clerk Intake/History Adult Cash Sales Audit Clerk Intake/History Entered On: 03/19/2015 10:05 CDT Performed [...] 03/19/2015 10:02 CDT General Info Languages : Filipino Is Patient Female and 13-50 no hysterectomy [...] TSANG NATALYA - 03/19/2015 10:02 CDT Source: [facility] POWERCHART Document Id: [id number] CDT!38 documented in this encounter Plan of [...] (ABNORMAL) Dipstick, Urine (03/19/2015 3:36 PM CDT) [facility] gist Method Time Signature HXUr Color Yellow Colorless POWERCHART Clarity Clear Clear POWERCHART Glucose Negative Negative POWERCHART MGDL HXBILIRUBIN Negative Negative POWERCHART Ketones, QL(U) Negative Negative POWERCHART MGDL Specific 1.015 POWERCHART [place], POCT, U HXBLOOD Negative Negative POWERCHART pH, [...] M.D. LAB URINE ORDERABLES Performing Organization Address City/[facility]/ZIP Code Phon e Number POWERCHART Automated Differential [...] M.D. LAB BLOOD ADD-ON Performing Organization Address City/State/[facility] Code Phon e Number POWERCHART CBC with Differential (03/19/2015 3:32 PM CDT) P athologist Signature Leukocytes 6.8 3.4 - 10.5 POWERCHART X109L Erythrocytes 4.42 3.90 - 5.03 POWERCHART [id number] Hemoglobin 13.4 12.0 - 15.5 POWERCHART GDL [...] M.D. LAB BLOOD ADD-ON Performing Organization Address City/State/[facility] Code Phon e Number POWERCHART BMP (Basic [...] POWERCHART MMOLL HXeGFR (MDRD) >60 >=60 POWERCHART [id number] eGFR >60 >=60 POWERCHART Black/ [id number] Estonian Specimen (Source) Anatomical Collection Method Collection Time [...]
--- OUTSIDE RECORDS SUMMARY | 2022-06-23 11:07 | XMS_ITS | Encounter Summary ---
:1940 Author Organization [facility] Address [address] [place] [address] Care Team Providers Name Role Phone Unavailable Primary Care Provider Unavailable Encounter Details Date Type Department Care Team Description 09/15/2016 Hospital Encounter HX NO MAPPING Opal Vazquez M.D. [address] [place] [phone] (Wo rk) Social History Tobacco [...] 05/13/2021 relatives? How often do you attend shinto or rastafarian Patient refused 05/13/2021 services? Do you belong to any clubs or organizations such as Patient refused 05/13/2021 shinto groups, unions, fraternal or athletic groups, or [...] Historical Provider Ser - 09/15/2016 11:59 PM MACHINES TECHNICIAN Coding Summary-Paper Based CODING DATE: 09/22/2016 FINAL [facility] STATUS: * Discharged to Home or Self [...] MARSHALL Date Saved: 09/22/2016 10:34 am [facility] Document Id: [id number] documented in this encounter Plan of Treatment Not on filedocumented as of this encounter Visit Diagnoses Not on filedocumented in this encounter Additional Health Concerns Assessment Noted Time PHQ-9 Depression Total Score: 1 04/08/2015 9:22 AM CDT documented as of this encounter
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
== END 2022-06-23 12:41 | disposition home or self-care (01) ==
PROVIDERS: Emergency Provider Family Medicine; PCP Nurse Practitioner Family
DX: H81.10 Benign paroxysmal vertigo, unspecified ear (principal); S09.90XA Unspecified injury of head, initial encounter
CPT/HCPCS: 70450; 93005; 99284

== ENCOUNTER 2023-04-04 08:03 | Emergency (ER) | payer MEDICARE, BC, SELFPAY ==
[2023-04-04 08:15] VITALS: BP 120/74; PULSE 74; RESP 18; TEMP 36.7; O2SAT 100; BMI 24.1
--- NOTE | 2023-04-04 08:25 | CRLHL7_ITS ---
For Patients: As a result of the Century Cures Act, medical imaging exams and procedure reports are released immediately into your electronic medical record. You may view this report before your referring provider. If you have questions, please contact your health care provider. INDICATION: Abdominal pain TECHNIQUE: Axial images were obtained from the diaphragm to the pubic symphysis. Reformats were obtained in the coronal and sagittal plane. IV Contrast: None Oral Contrast: None COMPARISON: None. FINDINGS: Lower chest: Calcified granuloma within the right lower lobe. Liver: Unremarkable. Normal in size and attenuation. No masses. Gallbladder and bile ducts: Unremarkable. No stones or inflammation. No biliary dilatation. Spleen: Unremarkable. Normal in size without mass. Pancreas: Unremarkable. No mass or inflammation. Adrenal glands: Unremarkable. No nodules. Kidneys: Kidneys are symmetric without hydronephrosis. Exophytic cyst lower pole right kidney measuring 14 millimeters. Vasculature: Atherosclerosis without abdominal aortic aneurysm. GI tract: The stomach is unremarkable. Small bowel is decompressed. Mild colonic diverticulosis. Some distention of the cecum and ascending colon with some mild fat stranding along the right colon as well as a large amount of stool. This is slightly more focal in the region of the hepatic flexure (series 2, image 44). Distal to this, the colon is decompressed and appears unremarkable save for diverticular changes. Trace free fluid in the pelvis. Pelvis: Unremarkable. Bones: Bilateral hip osteoarthritis. Degenerative disc disease lumbar spine. IMPRESSION: Distention of the cecum and ascending colon with a large amount of stool. Inflammatory fat stranding along the cecum and ascending colon, slightly more focal at the level of the hepatic flexure. Underlying colonic diverticulosis with slightly more focal fat stranding in the region of the hepatic flexure. Appearance is consistent with colonic inflammation. Appearance would favor a colitis with differential including stercoral colitis with diverticulitis considered less likely. Please note that all CT scans at this facility use dose modulation, iterative reconstruction, and/or weight-based dosing when appropriate to reduce radiation dose to as low as reasonably achievable. Dictated by Marcelino Thomas MD @ 04/04/2023 9:17:35 AM (Electronically Signed)
--- NOTE | 2023-04-04 08:27 | ED_ITS ---
HPI - General Adult General Time Seen by Provider: 08:27 Date Seen: 04/04/23 Chief complaint: Abdominal Pain Stated complaint: bowel obstruction Time Seen by Provider: 04/04/23 08:08 Source: patient Mode of arrival: ambulatory Limitations: no limitations History of Present Illness HPI narrative: Patient is 82 white female presents with no bowel movement over the last for 3-4 days, and infrequent bowel movements over the last month. She reports she gets constipation when she does not drink enough water. She has had really no abdominal pain of significance other than occasional cramping in her abdomen lower. No dysuria no frequency. No fevers or chills. No nausea or vomiting. No blood in her stool no black stools. The patient's medical history is review ed from her chart. Denies chest pain, denies shortness of breath. Denies headache or neck pain. Related Data Home Medications Medication Instructions Recorded Confirmed B-complex with vitamin C 1 cap PO QDAY 03/03/22 06/30/22 cholecalciferol (vitamin D3) 50 2,000 unit PO DAILY 03/03/22 06/30/22 mcg (2,000 unit) tablet magnesium oxide 400 mg (241.3 mg 800 mg PO DAILY 03/03/22 06/30/22 magnesium) tablet multivitamin 1 tab PO QAM 03/03/22 06/30/22 omega-3 acid ethyl esters 1 gram 1 cap PO QDAY 03/03/22 06/30/22 capsule potassium gluconate 500 mg (83 mg) 500 mg PO QDAY 03/03/22 06/30/22 tablet vit A 300 mcg-C 200 mg-E 27 1 tab PO DAILY 03/03/22 06/30/22 mg-lutein 2 mg and minerals tablet (Ocuvite with Lutein) Allergies Allergy/AdvReac Type Severity Reaction Status Date / Time No Known Allergies Allergy Verified 06/30/22 12:33 Review of Systems Status of ROS: Reports: 6 or more systems reviewed and unremarkable except as noted in History and below [facility] Medical History History of pterygium ?Z86.69 - Personal history of other diseases of the nervous system and sense organs (ICD-10) History of Mohs micrographic surgery for skin cancer ?Z85.828 - Personal history of other malignant neoplasm of skin (ICD-10) ?Z98.890 - Other specified postprocedural states (ICD-10) History of malignant neoplasm of skin ?Z85.828 - Personal history of other malignant neoplasm of skin (ICD-10) Surgical History 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) ?Z96.651 - Presence of right artificial knee joint (ICD-10) History of varicose vein stripping ?Z98.890 - Other specified postprocedural states (ICD-10) History of tubal ligation ?Z98.51 - Tubal ligation status (ICD-10) History of total knee replacement ?Z96.659 - Presence of unspecified artificial knee joint (ICD-10) History of hysterectomy ?Z90.710 - Acquired absence of both cervix and uterus (ICD-10) History of hemorrhoidectomy ?Z98.890 - Other specified postprocedural states (ICD-10) History of colonoscopy ?Z98.890 - Other specified postprocedural states (ICD-10) History of carpal tunnel release ?Z98.890 - Other specified postprocedural states (ICD-10) History of bunionectomy ?Z98.890 - Other specified postprocedural states (ICD-10) History of appendectomy ?Z90.49 - Acquired absence of other specified parts of digestive tract (ICD- 10) Family History Father AAA (abdominal aortic aneurysm) Coronary artery disease Daughter Cancer High blood pressure Sister History of hyperlipidemia High blood pressure Aunt Tuberculosis Social History Narrative: Former smoker Smoking Status: Former smoker Do you use any of these nicotine containing products: None Second hand tobacco smoke exposure: No How often do you have a drink containing alcohol: 2-4 times a month How many standard drinks containing alcohol do you have on a typical day: 3 or 4 How often do you have six or more drinks on one occasion: Never AUDIT-C Alcohol total score: 3 Non-prescribed substance use: denies use service: No Exam Narrative: Exam Narrative: Objective: Vital signs are within normal limits Alert or x3 no apparent distress Pulses regular Abdomen benign soft bowel sounds normoactive, no rebound, no complaint of back pain Extremities are no edema Neurologic nonfocal Good peripheral perfusion noted Const: Vital Signs, click to edit/add: Vital Signs - 24 hr 04/04/23 08:15 04/04/23 10:29 04/04/23 12:24 Temperature 98.1 F Pulse Rate [Pulse Oximeter] 74 57 L 80 Respiratory Rate 18 20 18 Blood Pressure [Le ft Upper Arm] 120/74 139/71 150/79 H Pulse Oximetry 100 99 100 Oxygen Delivery Me thod Room Air Room Air Room Air Course Vital Signs Vital signs: Initial Vital Signs Temperature 98.1 F 04/04/23 08:15 Temperature Source Temporal Artery Scan 04/04/23 08:15 Pulse Rate 74 04/04/23 08:15 Pulse Rhythm Regular 04/04/23 08:15 Respiratory Rate 18 04/04/23 08:15 Blood Pressure 120/74 04/04/23 08:15 Blood Pressure Mean 89 04/04/23 08:15 Blood Pressure Position Supine 04/04/23 08:15 Pulse Oximetry 100 04/04/23 08:15 Oxygen Delivery Method Room Air 04/04/23 08:15 Vital Signs Temperature 98.1 F 04/04/23 08:15 Pulse Rate 74 04/04/23 08:15 Respiratory Rate 18 04/04/23 08:15 Blood Pressure 120/74 04/04/23 08:15 Pulse Oximetry 100 04/04/23 08:15 Oxygen Delivery Method Room Air 04/04/23 08:15 Temperature 98.1 F 04/04/23 08:15 Pulse Rate 80 04/04/23 12:24 Respiratory Rate 18 04/04/23 12:24 Blood Pressure 150/79 H 04/04/23 12:24 Pulse Oximetry 100 04/04/23 12:24 Oxygen Delivery Method Room Air 04/04/23 12:24 Medical Decision Making MDM Narrative Medical decision making narrative: 82-year-old female with intermittent constipation problems, now with significant constipation. I think given her age would be reasonable to do a CT to make sure did have a intestinal obstruction, will give her an Enemeez enema, check labs, IV fluid, CT scan as mention. Disposition pending findings above. I suspect she has constipation but cannot rule out bowel obstruction, diverticulitis , or other intra-abdominal pathology. 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 I think at this time her labs look reassuring she does not appear to be sick enough to need hospitalization but I do think she needs help with further bowel movement will give her GoLYTELY from above until she has got loose stool. Hopefully then she can be discharged home on a smaller dose of perhaps MiraLax once or twice a day for the next few days to make sure she is moving her bowels normally and follow up with primary care in the next couple of days. Addendum 12:27 p.m.: The patient was able to have a small bowel movement after starting some GoLYTELY. She has a large container of GoLYTELY to take. I would recommend she continue this at home until she has got almost loose stool or diarrhea. Then she could take a stool softener starting tomorrow. I would recommend update her regular doctor in the next 24-48 hours for reassessment, return to ED if problems concerns or difficulties. Patient did have resolution of her abdominal pain, she gets occasional suprapubic cramping but that may be read due to the GoLYTELY and I think she when she has a bowel movement this will leopoldo. Lab Data Labs: Lab Results 04/04/23 04/04/23 Range/Units 08:36 08:36 WBC 6.21 (4.50-11.00) K/uL RBC 4.30 (4.00-5.20) m/uL Hgb 13.1 (12.0-16.0) gm/dL Hct 38.7 (33.0-51.0) % MCV 90 (80-100) fL MCH 31 (26-34) pg MCHC 34 (32-36) gm/dL RDW Coeff of Ashish 12.4 (11.5-15.5) % Plt Count 222 (140-440) K/uL Neut % (Auto) 70.4 (42.0-72.0) % Lymph % (Auto) 20.0 (20-44) % [place] % (Auto) 8.2 (0.0-11.0) % Eos % (Auto) 1.0 (0.0-7.0) % Baso % (Auto) 0.2 (0.0-3.0) % Neut # (Auto) 4.38 (1.7-7.0) K/uL Lymph # (Auto) 1.24 (0.90-2.90) K/uL [place] # (Auto) 0.50 (0.00-0.90) K/UL Eos # (Auto) 0.06 (0.00-0.50) K/uL Baso # (Auto) 0.01 (0.00-0.30) K/uL Abs Immat Gran (auto) 0.01 (0.00-0.30) K/uL Imm/Tot Granulo (auto) 0.2 % Sodium 138 (135-149) mmol/L Potassium 4.0 (3.6-5.1) mmol/L Chloride 106 (96-114) mmol/L Carbon Dioxide 25 (20-32) mmol/L Anion Gap 7 (7-15) mEq/L BUN 8 (7-30) mg/dL Creatinine 0.6 (0.5-1.5) mg/dL Estimated Creat Clear 37.68 Estimated GFR 88 ml/min Glucose 92 (60-115) mg/dL Lactate 1.2 (0.5-1.9) mmol/L Calcium 9.9 (8.4-10.6) mg/dL Total Bilirubin 0.6 (0.1-1.5) mg/dL Direct Bilirubin 0.1 (0.0-0.5) mg/dL AST 26 (12-35) U/L ALT 15 (4-35) U/L Alkaline Phosphatase 63 (40-150) U/L C-Reactive Protein 0.9 (0.5-1.0) mg/dL Total Protein 7.2 (6.0-8.3) g/dL Albumin 4.1 (3.3-5.0) g/dL Amylase Cancelled 62 Discharge Plan Discharge Clinical Impression: Abdominal pain, Constipation Patient Disposition: Home w/ Parent or Adult Condition: Improved Additional Instructions: Finish the GoLYTELY today, then start a stool softener tomorrow, your stool should be diarrhea like. Would recommend update your regular doctor next 2-3 days with symptoms, return to the ED sooner problems concerns worsening. Activity Level: Light activity Discharge Diet: Regular Prescriptions: No Action cholecalciferol (vitamin D3) 50 mcg (2,000 unit) tablet 2,000 unit PO DAILY Ocuvite with Lutein 300 mcg-200 mg-27 mg-2 mg tablet 1 tab PO DAILY magnesium oxide 400 mg (241.3 mg magnesium) tablet 800 mg PO DAILY potassium gluconate 500 mg (83 mg) tablet 500 mg PO QDAY omega-3 acid ethyl esters 1 gram capsule 1 cap PO QDAY multivitamin Tablet 1 tab PO QAM B-complex with vitamin C Capsule 1 cap PO QDAY Follow Up/Referrals: Brii Browne, LAUNDRY SUPERINTENDENT, PRICE ECONOMIST [Primary Care Provider] - Stand Alone [facility]: [facility] Info Instructions
[2023-04-04 08:43] LABS: Lactate* 1.2 mmol/L (0.5-1.9)
[2023-04-04 08:50] LABS: Basophils Absolute Auto 0.01 K/uL (0.00-0.30); Basophils Percent Auto 0.2 % (0.0-3.0); Eosinophils Absolute Auto 0.06 K/uL (0.00-0.50); Hematocrit 38.7 % (33.0-51.0); Hemoglobin* 13.1 gm/dL (12.0-16.0); Immature Granulocytes Abs Auto 0.01 K/uL (0.00-0.30); Immature Granulocytes Pct Auto 0.2 %; Lymphocytes Absolute Auto 1.24 K/uL (0.90-2.90); Mean Corpuscular HGB Conc 34 gm/dL (32-36); Mean Corpuscular Hemoglobin 31 pg (26-34); Mean Corpuscular Volume 90 fL (80-100); Monocytes Percent Auto 8.2 % (0.0-11.0); Neutrophils Absolute Auto 4.38 K/uL (1.7-7.0); Neutrophils Percent Auto 70.4 % (42.0-72.0); Platelet Count* 222 K/uL (140-440); RDW Coefficient of Variation % 12.4 % (11.5-15.5); White Blood Count* 6.21 K/uL (4.50-11.00)
[2023-04-04] MEDS: 0.9 % SODIUM CHLORIDE 500 ML 500 ML IV (08:51)
[2023-04-04 08:56] LABS: Slide Review Reflex No
[2023-04-04] MEDS: DOCUSATE SODIUM/BENZOCAINE 5 ML ENEMA PR (08:57)
[2023-04-04 09:04] LABS: Albumin* 4.1 g/dL (3.3-5.0); Chloride* 106 mmol/L (96-114)
[2023-04-04 09:05] LABS: Sodium* 138 mmol/L (135-149)
[2023-04-04 09:07] LABS: Creatinine* 0.6 mg/dL (0.5-1.5); Est. Creatinine Clearance* 37.68; Estimated Glomerular Filt Rate 88 ml/min
[2023-04-04 09:08] LABS: Alanine Aminotransferase* 15 U/L (4-35); Alkaline Phosphatase* 63 U/L (40-150); Anion Gap 7 mEq/L (7-15); Aspartate Amino Transferase* 26 U/L (12-35); Bilirubin Direct* 0.1 mg/dL (0.0-0.5); Bilirubin Total* 0.6 mg/dL (0.1-1.5); Blood Urea Nitrogen* 8 mg/dL (7-30); Carbon Dioxide* 25 mmol/L (20-32); Glucose* 92 mg/dL (60-115); Total Protein* 7.2 g/dL (6.0-8.3)
[2023-04-04 09:09] LABS: Calcium* 9.9 mg/dL (8.4-10.6)
[2023-04-04 09:10] LABS: Amylase* 62 U/L (18-89)
[2023-04-04 09:11] LABS: C Reactive Protein* 0.9 mg/dL (0.5-1.0)
[2023-04-04 10:29] VITALS: BP 139/71; PULSE 57; RESP 20; O2SAT 99
[2023-04-04] MEDS: PEG-3350 SODIUM CL/BICARB-KCL 4,000 ML SOLN 4000 ML PO (10:29)
--- NOTE | 2023-04-04 10:30 | ED.NURSE ---
has had minimal amounts from enema. is drinking miralax now.
--- NOTE | 2023-04-04 10:59 | ED.NURSE ---
Addendum entered by Nichol Childs RN 04/04/23 18:54: this was Golytely not Miralax. Original Note: did vomit large amt of the Miralax. dr Tamayo informed.
[2023-04-04 12:24] VITALS: BP 150/79; PULSE 80; RESP 18; O2SAT 100
== END 2023-04-04 12:35 | disposition home or self-care (01) ==
PROVIDERS: Emergency Provider Family Medicine; PCP Nurse Practitioner Family
DX: R10.9 Unspecified abdominal pain (principal); K59.00 Constipation, unspecified
CPT/HCPCS: 36415; 74176; 80048; 80076; 82150; 83605; 85025; 86140; 96360; 99284; A9270; J7120

== ENCOUNTER 2023-05-11 07:50 | Inpatient (IN) | payer MEDICARE, BC, SELFPAY ==
[2023-05-11] VITALS (34 sets, daily range): BP systolic 93–143; BP diastolic 59–78; PULSE 67–100; RESP 16–18; TEMP 36.6–36.9; O2SAT 90–99; BMI 23.2; BMI 22.8
--- NOTE | 2023-05-11 08:24 | ED_ITS ---
HPI - General Adult General Chief complaint: Constipation Stated complaint: constipation Time Seen by Provider: 05/11/23 08:05 History of Present Illness HPI narrative: Patient reports right sided abdominal firmness, cramping, gas and nausea. This started yesterday. The doctor changed her from docusate to senna. 82-year-old woman presenting to the emergency department with concern of constipation. She is accompanied by her daughter. Typically does not have any trouble with constipation having daily bowel movements. It has now been 8 days. Couple of weeks ago though was changed from Colace to senna by a care provider. Did also recently try an enema with no results really. Has not had any fever. Does have a history abdominal surgery evidence by low midline scar. Over the last 24-36 hrs has had trouble getting water down or keeping it down. Typically tries to drink quite a bit of water daily. She does not remember when she last passed gas. Intermittent cramping pain generally in the abdomen is becoming more intense. She indicates discomfort can wrap entirely around across the top. Absent appendix. Does still have her gallbladder. In re-questioning, rephrasing, it sounds as though did actually vomit a few times this morning. Related Data Home Medications Medication Instructions Recorded Confirmed B-complex with vitamin C 1 cap PO DAILY 03/03/22 05/22/23 cholecalciferol (vitamin D3) 50 2,000 unit PO DAILY 03/03/22 05/22/23 mcg (2,000 unit) tablet magnesium oxide 400 mg (241.3 mg 800 mg PO DAILY 03/03/22 05/22/23 magnesium) tablet multivitamin 1 tab PO QAM 03/03/22 05/22/23 omega-3 acid ethyl esters 1 gram 1 cap PO DAILY 03/03/22 05/22/23 capsule potassium gluconate 500 mg (83 mg) 500 mg PO DAILY 03/03/22 05/22/23 tablet vit A 300 mcg-C 200 mg-E 27 1 tab PO DAILY 03/03/22 05/22/23 mg-lutein 2 mg and minerals tablet (Ocuvite with Lutein) diclofenac sodium 0.1 % eye drops 1 drp ophthalmic (eye-left) QID 05/13/23 05/22/23 Previous Rx's Medication Instructions Recorded enoxaparin 40 mg/0.4 mL 40 mg (0.4 mL) subcut Q24H 30 days 05/19/23 subcutaneous syringe #12 mL hydrocodone 5 mg-acetaminophen 325 1 tab PO Q6H PRN Pain #15 tabs 05/19/23 mg tablet Allergies Allergy/AdvReac Type Severity Reaction Status Date / Time No Known Allergies Allergy Verified 05/22/23 08:43 Review of Systems Status of ROS: Reports: 6 or more systems reviewed and unremarkable except as noted in History and below [facility] Medical History (Updated 05/22/23 @ 15:03 by Bronwyn Gamboa MD) Traumatic brain injury ?S06.9XAA - Unspecified intracranial injury with loss of consciousness status unknown, initial encounter (ICD-10) Hoarseness ?R49.0 - Dysphonia (ICD-10) Cervical pain (neck) ?M54.2 - Cervicalgia (ICD-10) Osteoarthritis of left knee ?M17.12 - Unilateral primary osteoarthritis, left knee (ICD-10) Osteoarthritis of left hip ?M16.12 - Unilateral primary osteoarthritis, left hip (ICD-10) Prolapse of vaginal wall ?N81.10 - Cystocele, unspecified (ICD-10) Primary osteoarthritis ?M19.91 - Primary osteoarthritis, unspecified site (ICD-10) Injury of head ?S09.90XA - Unspecified injury of head, initial encounter (ICD-10) Hyperlipidemia ?E78.5 - Hyperlipidemia, unspecified (ICD-10) Gastroesophageal reflux disease ?K21.9 - Gastro-esophageal reflux disease without esophagitis (ICD-10) Dermatitis ?L30.9 - Dermatitis, unspecified (ICD-10) Anxiety ?F41.9 - Anxiety disorder, unspecified (ICD-10) History of pterygium ?Z86.69 - Personal history of other diseases of the nervous system and sense organs (ICD-10) History of Mohs micrographic surgery for skin cancer ?Z85.828 - Personal history of other malignant neoplasm of skin (ICD-10) ?Z98.890 - Other specified postprocedural states (ICD-10) History of malignant neoplasm of skin ?Z85.828 - Personal history of other malignant neoplasm of skin (ICD-10) Surgical History (Updated 05/20/23 @ 10:21 by Sabrina Shane MD) S/P right hemicolectomy ?Z90.49 - Acquired absence of other specified parts of digestive tract (ICD- 10) 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) ?Z96.651 - Presence of right artificial knee joint (ICD-10) History of varicose vein stripping ?Z98.890 - Other specified postprocedural states (ICD-10) History of tubal ligation ?Z98.51 - Tubal ligation status (ICD-10) History of total knee replacement ?Z96.659 - Presence of unspecified artificial knee joint (ICD-10) History of hysterectomy ?Z90.710 - Acquired absence of both cervix and uterus (ICD-10) History of hemorrhoidectomy ?Z98.890 - Other specified postprocedural states (ICD-10) History of colonoscopy ?Z98.890 - Other specified postprocedural states (ICD-10) History of carpal tunnel release ?Z98.890 - Other specified postprocedural states (ICD-10) History of bunionectomy ?Z98.890 - Other specified postprocedural states (ICD-10) History of appendectomy ?Z90.49 - Acquired absence of other specified parts of digestive tract (ICD- 10) Family History Father AAA (abdominal aortic aneurysm) Coronary artery disease Daughter Cancer High blood pressure Sister History of hyperlipidemia High blood pressure Aunt Tuberculosis Social History Narrative: Former smoker, . Lives alone What is your current living situation?: I presently have a place to live Problems where you live: no known problems Problems where you live details: Allergens In the past 12 months, utilities in danger of being shut off: no In past 12 months, lack of transportation kept you from medical appts, meetings, work, or getting things needed for daily living: no In the past 12 mos, have been you worried that your food would run out before you had money to buy more?: never true In the past 12 mos, the food you bought just didn't last and you didn't have m oney to buy more?: never true Highest level of school completed/degree received: Associate degree: academic program Smoking Status: Never smoker Do you use any of these nicotine containing products: None Second hand tobacco smoke exposure: No How often do you have a drink containing alcohol: monthly or less How many standard drinks containing alcohol do you have on a typical day: 3 or 4 How often do you have six or more drinks on one occasion: Never AUDIT-C Alcohol total score: 2 Non-prescribed substance use: denies use Caffeine: No How often does anyone, including family, friends and others, physically hurt you : never How often does anyone, including family, friends and others, insult or talk down to you: never How often does anyone, including family, friends and others, threaten you with harm: never How often does anyone, including family, friends and others, scream or curse at you: never service: No Exam Narrative: Exam Narrative: Very pleasant. Breathing easily. Lungs clear. With good energy. Skin is warm and dry. Extremities are without edema. She is well-perfused. Heart in an elevated rate and regular rhythm. Abdomen with normoactive bowel sounds. Generally does seem a little full and tense. She is tender generally in the mid right and low abdomen more so than elsewhere. No masses are appreciated. Infraumbilical vertical surgical scar Const: Vital Signs, click to edit/add: Vital Signs - 24 hr 05/11/23 07:56 05/11/23 10:22 05/11/23 10:30 Temperature 97.8 F Pulse Rate 78 67 Pulse Rate [Pulse Oximeter] 100 Respiratory Rate 17 Blood Pressure Blood Pressure [Ri ght Upper Arm] 93/62 Pulse Oximetry 97 98 96 Oxygen Delivery Me thod Room Air Room Air 05/11/23 10:32 05/11/23 10:45 05/11/23 11:02 Temperature Pulse Rate 70 67 72 Pulse Rate [Pulse Oximeter] Respiratory Rate Blood Pressure 118/71 Blood Pressure [Ri ght Upper Arm] Pulse Oximetry 94 92 97 Oxygen Delivery Me thod 05/11/23 11:03 05/11/23 11:15 Temperature Pulse Rate 73 71 Pulse Rate [Pulse Oximeter] Respiratory Rate Blood Pressure 119/64 Blood Pressure [Ri ght Upper Arm] Pulse Oximetry 96 91 Oxygen Delivery Me thod Documenting provider has reviewed patient's vital signs: yes Course Vital Signs Vital signs: Initial Vital Signs Temperature 97.8 F 05/11/23 07:56 Temperature Source Temporal Artery Scan 05/11/23 07:56 Pulse Rate 100 05/11/23 07:56 Respiratory Rate 17 05/11/23 07:56 Blood Pressure 93/62 05/11/23 07:56 Blood Pressure Mean 72 05/11/23 07:56 Pulse Oximetry 97 05/11/23 07:56 Oxygen Delivery Method Room Air 05/11/23 07:56 Vital Signs Temperature 97.8 F 05/11/23 07:56 Pulse Rate 100 05/11/23 07:56 Respiratory Rate 17 05/11/23 07:56 Blood Pressure 93/62 05/11/23 07:56 Pulse Oximetry 97 05/11/23 07:56 Oxygen Delivery Method Room Air 05/11/23 07:56 Temperature 97.4 F L 05/20/23 08:01 Pulse Rate 83 05/20/23 08:01 Respiratory Rate 18 05/20/23 08:01 Blood Pressure 111/72 05/20/23 08:01 Pulse Oximetry 98 05/20/23 08:01 Oxygen Delivery Method Room Air 05/20/23 08:01 Oxygen Flow Rate 0 05/19/23 23:00 Medical Decision Making MDM Narrative Medical decision making narrative: Obstruction certainly in the differential. Not experiencing any nausea at this time and does not seem to be in that degree of discomfort. I think can pursue constipation as source of discomfort. Will verify abdominal gas pattern with two-view abdominal x-ray and then treat accordingly. Review of records though father with a history of AAA. Rolanda herself was a smoker. Abdominal x-ray with air-fluid level in the left upper abdomen. Could represent ileus. Do not see marked stool in the descending or rectal vault. There is air in the distal colon. Review of records offering more information in that about 6 weeks ago was seen in this department and imaged with CT abdomen and pelvis. There was some question of some colitis in the hepatic flexure and large amount of stool in the cecal and ascending colon. Was given GoLYTELY in the emergency department discharged with same and then a stool softener. Unclear to me what resolution ultimately there was. Sounds as though this has been an ongoing issue now over the last many weeks. I think with this in mind would be good to proceed with repeat abdominal imaging to evaluate for any change or see if we can see any more than we did last time. Labs overall reassuring. I have reviewed CT abdomen pelvis imaging and there is still moderate dilatation of the ascending colon. Distally with some pericolonic stranding again. Generally absent of stool though. INDICATION: Eight days of no bowel movement. Concern for stercoral colitis.. TECHNIQUE: CT abdomen and pelvis acquired with 66 cc Isovue 370 IV contrast. COMPARISON: 04/04/2023. FINDINGS: Lower chest: 4 millimeter right lower lobe noncalcified pulmonary nodule (series 3, image 6) Liver: Unremarkable. Normal in size and attenuation. No suspicious masses. Gallbladder and bile ducts: Unremarkable. No stones or inflammation. No biliary dilatation. Pancreas: Unremarkable. No mass or inflammation. Spleen: Unremarkable. Normal in size. No masses. Adrenal glands: Unremarkable. No nodules. Kidneys: Unremarkable. No suspicious masses, stones, or hydronephrosis. GI tract: There are several dilated loops fluid filled ileum within the mid and lower abdomen. The dilated small bowel measures up to 3 centimeters in diameter. The terminal ileum as well as the cecum and proximal ascending colon are distended and fluid filled. The distal ascending colon is decompressed with circumferential wall thickening measuring up to 8 millimeters and there is mild adjacent pericolonic inflammatory stranding and prominent pericolonic lymph nodes (series 2, image [id number]). The appendix is not visualized. Vasculature: Extensive atherosclerotic calcifications without aneurysmal dilation. Mesenteric arteries are patent. Lymph nodes: No lymphadenopathy. Peritoneum/Abdominal Wall: Trace intraperitoneal free fluid. No pneumoperitoneum. Pelvis: Unremarkable. Bones: Osseous demineralization. 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 IMPRESSION: 1. Multiple dilated loops of ileum with dilation of the cecum and proximal ascending colon, which may represent ileus versus partial bowel obstruction. There is circumferential wall thickening and mild pericolonic inflammatory stranding with prominent lymph nodes involving the distal ascending colon, which may represent colitis; however, an underlying lesion is not excluded. Recommend direct visualization when clinically appropriate. 2. Right lower lobe pulmonary nodule measuring 4 mm. If the patient is at increased risk for lung cancer, consider repeat chest CT in 12 months according to Fleischner Society recommendations. Please note that all CT scans at this facility use dose modulation, iterative reconstruction, and/or weight-based dosing when appropriate to reduce radiation dose to as low as reasonably achievable. Dictated by Cindy Dang MD @ 05/11/2023 12:03:23 PM Discussed imaging findings with Mrs. Wolkenhauer and family. Discussed this case with General surgery anticipating admission. Concern of malignant lesion in the colon. Placing NG tube Hospitalist accepting. Medical Records Medical records reviewed: Yes I reviewed the patient's medical records Lab Data Lab results reviewed: Yes I reviewed the patient's lab results Labs: Lab Results 05/11/23 Range/Units 10:00 WBC 8.09 (4.50-11.00) K/uL RBC 4.96 (4.00-5.20) m/uL Hgb 15.0 (12.0-16.0) gm/dL Hct 43.7 (33.0-51.0) % MCV 88 (80-100) fL MCH 30 (26-34) pg MCHC 34 (32-36) gm/dL RDW Coeff of Ashish 11.9 (11.5-15.5) % Plt Count 231 (140-440) K/uL Neut % (Auto) 85.6 H (42.0-72.0) % Lymph % (Auto) 9.5 L (20-44) % Jerome % (Auto) 4.7 (0.0-11.0) % Eos % (Auto) 0.0 (0.0-7.0) % Baso % (Auto) 0.1 (0.0-3.0) % Neut # (Auto) 6.90 (1.7-7.0) K/uL Lymph # (Auto) 0.80 L (0.90-2.90) K/uL Jerome # (Auto) 0.40 (0.00-0.90) K/UL Eos # (Auto) 0.00 (0.00-0.50) K/uL Baso # (Auto) 0.01 (0.00-0.30) K/uL Abs Immat Gran (auto) 0.01 (0.00-0.30) K/uL Imm/Tot Granulo (auto) 0.1 % ESR 9 (2-20) mm/hr Sodium 136 (135-149) mmol/L Potassium 4.3 (3.6-5.1) mmol/L Chloride 101 (96-114) mmol/L Carbon Dioxide 25 (20-32) mmol/L Anion Gap 10 (7-15) mEq/L BUN 16 (7-30) mg/dL Creatinine 0.7 (0.5-1.5) mg/dL Estimated Creat Clear 36.16 Estimated GFR 85 ml/min Glucose 113 (60-115) mg/dL Calcium 10.1 (8.4-10.6) mg/dL Total Bilirubin 0.8 (0.1-1.5) mg/dL Direct Bilirubin 0.0 (0.0-0.5) mg/dL AST 28 (12-35) U/L ALT 13 (4-35) U/L Alkaline Phosphatase 67 (40-150) U/L C-Reactive Protein 1.3 H (0.5-1.0) mg/dL Total Protein 7.4 (6.0-8.3) g/dL Albumin 4.2 (3.3-5.0) g/dL Lipase 84 (23-300) U/L TSH 0.224 L (0.270-4.20) uIU/mL Lab Acknowledgement Test Added Discharge Plan Discharge Clinical Impression: Bowel obstruction Patient Disposition: Admitted As Observation Condition: Stable Activity Level: No strenuous activity Activity Detail: no lifting more than 20 pounds for 4 weeks Discharge Diet: Regular
--- NOTE | 2023-05-11 08:34 | CRLHL7_ITS ---
For Patients: As a result of the Century Cures Act, medical imaging exams and procedure reports are released immediately into your electronic medical record. You may view this report before your referring provider. If you have questions, please contact your health care provider. Indication: Abdominal pain, no bowel movement for 2 days. Technique: Abdomen 2 view Comparison: Abdomen 04/16/2023 Findings/Impression: No definite evidence of obstruction with a single borderline diameter loop of small bowel in the mid abdomen which can be seen in enteritis/ileus. Minimal stool within the colon. Phleboliths in the pelvis. Bilateral hip osteoarthritis. Dictated by Marcelino Thomas MD @ 05/11/2023 9:08:27 AM (Electronically Signed)
[2023-05-11] MEDS: 0.9 % SODIUM CHLORIDE 1000 ml 1,000 ML IV (09:58)
[2023-05-11] MEDS: MORPHINE 4 MG/ML INJ IVP (09:58)
[2023-05-11 10:18] LABS: Basophils Absolute Auto 0.01 K/uL (0.00-0.30); Basophils Percent Auto 0.1 % (0.0-3.0); Hematocrit 43.7 % (33.0-51.0); Immature Granulocytes Abs Auto 0.01 K/uL (0.00-0.30); Immature Granulocytes Pct Auto 0.1 %; Lymphocytes Percent Auto 9.5 % (20-44); Mean Corpuscular HGB Conc 34 gm/dL (32-36); Mean Corpuscular Hemoglobin 30 pg (26-34); Mean Corpuscular Volume 88 fL (80-100); Monocytes Percent Auto 4.7 % (0.0-11.0); Neutrophils Percent Auto 85.6 % (42.0-72.0); Platelet Count* 231 K/uL (140-440); RDW Coefficient of Variation % 11.9 % (11.5-15.5); Red Blood Count 4.96 m/uL (4.00-5.20); White Blood Count* 8.09 K/uL (4.50-11.00)
[2023-05-11 10:19] LABS: Slide Review Reflex No
--- NOTE | 2023-05-11 10:27 | CRLHL7_ITS ---
For Patients: As a result of the Century Cures Act, medical imaging exams and procedure reports are released immediately into your electronic medical record. You may view this report before your referring provider. If you have questions, please contact your health care provider. INDICATION: Eight days of no bowel movement. Concern for stercoral colitis.. TECHNIQUE: CT abdomen and pelvis acquired with 66 cc Isovue 370 IV contrast. COMPARISON: 04/04/2023. FINDINGS: Lower chest: 4 millimeter right lower lobe noncalcified pulmonary nodule (series 3, image 6) Liver: Unremarkable. Normal in size and attenuation. No suspicious masses. Gallbladder and bile ducts: Unremarkable. No stones or inflammation. No biliary dilatation. Pancreas: Unremarkable. No mass or inflammation. Spleen: Unremarkable. Normal in size. No masses. Adrenal glands: Unremarkable. No nodules. Kidneys: Unremarkable. No suspicious masses, stones, or hydronephrosis. GI tract: There are several dilated loops fluid filled ileum within the mid and lower abdomen. The dilated small bowel measures up to 3 centimeters in diameter. The terminal ileum as well as the cecum and proximal ascending colon are distended and fluid filled. The distal ascending colon is decompressed with circumferential wall thickening measuring up to 8 millimeters and there is mild adjacent pericolonic inflammatory stranding and prominent pericolonic lymph nodes (series 2, image [id number]). The appendix is not visualized. Vasculature: Extensive atherosclerotic calcifications without aneurysmal dilation. Mesenteric arteries are patent. Lymph nodes: No lymphadenopathy. Peritoneum/Abdominal Wall: Trace intraperitoneal free fluid. No pneumoperitoneum. Pelvis: Unremarkable. Bones: Osseous demineralization. 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 IMPRESSION: 1. Multiple dilated loops of ileum with dilation of the cecum and proximal ascending colon, which may represent ileus versus partial bowel obstruction. There is circumferential wall thickening and mild pericolonic inflammatory stranding with prominent lymph nodes involving the distal ascending colon, which may represent colitis; however, an underlying lesion is not excluded. Recommend direct visualization when clinically appropriate. 2. Right lower lobe pulmonary nodule measuring 4 mm. If the patient is at increased risk for lung cancer, consider repeat chest CT in 12 months according to Fleischner Society recommendations. Please note that all CT scans at this facility use dose modulation, iterative reconstruction, and/or weight-based dosing when appropriate to reduce radiation dose to as low as reasonably achievable. Dictated by Cindy Dang MD @ 05/11/2023 12:03:23 PM (Electronically Signed)
[2023-05-11 10:30] LABS: Chloride* 101 mmol/L (96-114)
[2023-05-11 10:31] LABS: Potassium* 4.3 mmol/L (3.6-5.1); Sodium* 136 mmol/L (135-149)
[2023-05-11 10:32] LABS: Albumin* 4.2 g/dL (3.3-5.0)
[2023-05-11 10:34] LABS: Anion Gap 10 mEq/L (7-15); Blood Urea Nitrogen* 16 mg/dL (7-30); Carbon Dioxide* 25 mmol/L (20-32); Creatinine* 0.7 mg/dL (0.5-1.5); Est. Creatinine Clearance* 36.16; Estimated Glomerular Filt Rate 85 ml/min
[2023-05-11 10:35] LABS: Alanine Aminotransferase* 13 U/L (4-35); Alkaline Phosphatase* 67 U/L (40-150); Aspartate Amino Transferase* 28 U/L (12-35); Bilirubin Total* 0.8 mg/dL (0.1-1.5); Calcium* 10.1 mg/dL (8.4-10.6); Glucose* 113 mg/dL (60-115); Total Protein* 7.4 g/dL (6.0-8.3)
[2023-05-11 10:37] LABS: C Reactive Protein* 1.3 mg/dL (0.5-1.0)
[2023-05-11 11:10] LABS: Erythrocyte SedimentationRate* 9 mm/hr (2-20)
[2023-05-11 11:15] LABS: Thyroid Stimulating Hormone* 0.224 uIU/mL (0.270-4.20)
--- NOTE | 2023-05-11 13:57 | P.GSCN_ITS ---
History of Present Illness Consult details Date Seen: 05/11/23 Consult date: 05/11/23 Narrative: The patient is an 82-year-old female who presents to the emergency department today with severe abdominal pain which started last evening. Her history is that approximately 6 weeks ago she presented to the emergency department with a lack of bowel movement for approximately 3-4 days with more infrequent bowel movements. She states that she had a history of constipation but at this time had no abdominal pain or other symptoms. She was found to have a large amount of stool in her cecum. There was some fat stranding at the hepatic flexure and it was thought that she could possibly have a focal colitis. She had been given GoLYTELY which did help her have a small bowel movement. Since then she has not been having much in the way of bowel movements. She sta ilan that they have been very small. She has not really been eating solid food, mostly soup and ramen. She saw her primary care provider and she was advised to increase her bowel regimen. Repeat x-ray showed moderate residual stool in the colon with decreased colonic stool burden compared to the prior study. Again since then she has not been able to eat much and despite a bowel regimen has not had any significant bowel movements. She did have some solid food on Sunday and has not had a bowel movement since. Yesterday she states that she developed pain across her abdomen which radiated to her ribs. Pain was severe. She thought at 1st it was gas but she was unable to pass gas. She felt as though there was a ball on her abdomen. When she came to the emergency department she got morphine and she was able to sleep and now her pain has improved. She did vomit this morning. She has not been passing flatus but she feels as though she needs to. She had a colonoscopy and she was 48. This was normal. She has has a daughter who had a cancerous polyp on colonoscopy. This was removed by polypectomy. She denies blood in her stool. Of note, the patient had a traumatic brain injury in 2021 and does have some difficulty with word finding. 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) ?Z96.651 - Presence of right artificial knee joint (ICD-10) History of varicose vein stripping ?Z98.890 - Other specified postprocedural states (ICD-10) History of tubal ligation ?Z98.51 - Tubal ligation status (ICD-10) History of total knee replacement ?Z96.659 - Presence of unspecified artificial knee joint (ICD-10) History of hysterectomy ?Z90.710 - Acquired absence of both cervix and uterus (ICD-10) History of hemorrhoidectomy ?Z98.890 - Other specified postprocedural states (ICD-10) History of colonoscopy ?Z98.890 - Other specified postprocedural states (ICD-10) History of carpal tunnel release ?Z98.890 - Other specified postprocedural states (ICD-10) History of bunionectomy ?Z98.890 - Other specified postprocedural states (ICD-10) History of appendectomy ?Z90.49 - Acquired absence of other specified parts of digestive tract (ICD- 10) Family History (Updated 05/11/23 @ 13:57 by Bronwyn Gamboa MD) Father AAA (abdominal aortic aneurysm) Coronary artery disease Daughter Cancer High blood pressure Sister History of hyperlipidemia High blood pressure Aunt Tuberculosis Social History (Updated 05/11/23 @ 13:58 by Bronwyn Gamboa MD) Narrative: Former smoker, . Lives alone Smoking Status: Former smoker Do you use any of these nicotine containing products: None Second hand tobacco smoke exposure: No How often do you have a drink containing alcohol: 2-4 times a month How many standard drinks containing alcohol do you have on a typical day: 3 or 4 How often do you have six or more drinks on one occasion: Never AUDIT-C Alcohol total score: 3 Non-prescribed substance use: denies use service: No Meds Home Medications and Allergies Home Medications Medication Instructions Recorded Confirmed Type B-complex with vitamin C 1 cap PO QDAY 03/03/22 04/30/23 History cholecalciferol (vitamin D3) 50 2,000 unit PO DAILY 03/03/22 04/30/23 History mcg (2,000 unit) tablet magnesium oxide 400 mg (241.3 mg 800 mg PO DAILY 03/03/22 04/30/23 History magnesium) tablet multivitamin 1 tab PO QAM 03/03/22 04/30/23 History omega-3 acid ethyl esters 1 gram 1 cap PO QDAY 03/03/22 04/30/23 History capsule potassium gluconate 500 mg (83 mg) 500 mg PO QDAY 03/03/22 04/30/23 History tablet vit A 300 mcg-C 200 mg-E 27 1 tab PO DAILY 03/03/22 04/30/23 History mg-lutein 2 mg and minerals tablet (Ocuvite with Lutein) Allergies Allergy/AdvReac Type Severity Reaction Status Date / Time No Known Allergies Allergy Verified 05/11/23 11:06 Exam Narrative: Exam Narrative: General appearance: Alert, cooperative, and in no distress Eyes: PERRLA, eye lids clear, and sclera white HENT Head: Normocephalic Ears: External ears normal Pulmonary: Breathing nonlabored on room air Cardiovascular Heart: Regular rate Extremities: warm and well perfused Gastrointestinal Abdominal: Somewhat distended but still soft. Minimally tender to palpation on the right. No guarding or rebound. Lower midline scar Musculoskeletal: Extremities: Upper: Both upper extremities have normal joint range of motion and in tact strength. Lower: Both lower extremities have normal joint range of motion and intact strength. Skin: Normal skin color, texture, and turgor. Neurologic: No focal deficits Psychiatric: Alert, oriented, cooperative, normal affect. Const: Vital Signs, click to edit/add: Vital Signs - 24 hr 05/11/23 07:56 05/11/23 10:22 05/11/23 10:30 Temperature 97.8 F Pulse Rate 78 67 Pulse Rate [Pulse Oximeter] 100 Respiratory Rate 17 Blood Pressure Blood Pressure [Ri ght Upper Arm] 93/62 Pulse Oximetry 97 98 96 Oxygen Delivery Me thod Room Air Room Air 05/11/23 10:32 05/11/23 10:45 05/11/23 11:02 Temperature Pulse Rate 70 67 72 Pulse Rate [Pulse Oximeter] Respiratory Rate Blood Pressure 118/71 Blood Pressure [Ri t Upper Arm] Pulse Oximetry 94 92 97 Oxygen Delivery Me thod 05/11/23 11:03 05/11/23 11:15 Temperature Pulse Rate 73 71 Pulse Rate [Pulse Oximeter] Respiratory Rate Blood Pressure 119/64 Blood Pressure [Ri ght Upper Arm] Pulse Oximetry 96 91 Oxygen Delivery Me thod Results Labs Labs: Abnormal lab results 05/11/23 Range/Units 10:00 Neut % (Auto) 85.6 H (42.0-72.0) % Lymph % (Auto) 9.5 L (20-44) % Lymph # (Auto) 0.80 L (0.90-2.90) K/uL C-Reactive Protein 1.3 H (0.5-1.0) mg/dL TSH 0.224 L (0.270-4.20) uIU/mL Diabetes panel 05/11/23 Range/Units 10:00 Sodium 136 (135-149) mmol/L Potassium 4.3 (3.6-5.1) mmol/L Chloride 101 (96-114) mmol/L Carbon Dioxide 25 (20-32) mmol/L BUN 16 (7-30) mg/dL Creatinine 0.7 (0.5-1.5) mg/dL Glucose 113 (60-115) mg/dL Calcium 10.1 (8.4-10.6) mg/dL AST 28 (12-35) U/L ALT 13 (4-35) U/L Alkaline Phosphatase 67 (40-150) U/L Total Protein 7.4 (6.0-8.3) g/dL Albumin 4.2 (3.3-5.0) g/dL Thyroid panel 05/11/23 Range/Units 10:00 TSH 0.224 L (0.270-4.20) uIU/mL Calcium panel 05/11/23 Range/Units 10:00 Calcium 10.1 (8.4-10.6) mg/dL Albumin 4.2 (3.3-5.0) g/dL Pituitary panel 05/11/23 Range/Units 10:00 Sodium 136 (135-149) mmol/L Potassium 4.3 (3.6-5.1) mmol/L Chloride 101 (96-114) mmol/L Carbon Dioxide 25 (20-32) mmol/L BUN 16 (7-30) mg/dL Creatinine 0.7 (0.5-1.5) mg/dL Glucose 113 (60-115) mg/dL Calcium 10.1 (8.4-10.6) mg/dL TSH 0.224 L (0.270-4.20) uIU/mL Adrenal panel 05/11/23 Range/Units 10:00 Sodium 136 (135-149) mmol/L Potassium 4.3 (3.6-5.1) mmol/L Chloride 101 (96-114) mmol/L Carbon Dioxide 25 (20-32) mmol/L BUN 16 (7-30) mg/dL Creatinine 0.7 (0.5-1.5) mg/dL Glucose 113 (60-115) mg/dL Calcium 10.1 (8.4-10.6) mg/dL Total Bilirubin 0.8 (0.1-1.5) mg/dL AST 28 (12-35) U/L ALT 13 (4-35) U/L Alkaline Phosphatase 67 (40-150) U/L Total Protein 7.4 (6.0-8.3) g/dL Albumin 4.2 (3.3-5.0) g/dL All other labs normal. Imaging Abdominal x-ray: report reviewed and image reviewed Abdomen CT scan report/results: report reviewed and image reviewed Additional studies: CT abdomen pelvis done today: IMPRESSION: 1. Multiple dilated loops of ileum with dilation of the cecum and proximal ascending colon, which may represent ileus versus partial bowel obstruction. There is circumferential wall thickening and mild pericolonic inflammatory stranding with prominent lymph nodes involving the distal ascending colon, which may represent colitis; however, an underlying lesion is not excluded. Recommend direct visualization when clinically appropriate. 2. Right lower lobe pulmonary nodule measuring 4 mm. If the patient is at increased risk for lung cancer, consider repeat chest CT in 12 months according to Fleischner Society recommendations. Please note that all CT scans at this facility use dose modulation, iterative reconstruction, and/or weight-based dosing when appropriate to reduce radiation dose to as low as reasonably achievable. Dictated by Cindy Dang MD @ 05/11/2023 12:03:[address] abdomen pelvis done 04/04/2023: IMPRESSION: Distention of the cecum and ascending colon with a large amount of stool. Inflammatory fat stranding along the cecum and ascending colon, slightly more focal at the level of the hepatic flexure. Underlying colonic diverticulosis with slightly more focal fat stranding in the region of the hepatic flexure. Appearance is consistent with colonic inflammation. Appearance would favor a colitis with differential including stercoral colitis with diverticulitis considered less likely. Please note that all CT scans at this facility use dose modulation, iterative reconstruction, and/or weight-based dosing when appropriate to reduce radiation dose to as low as reasonably achievable. Dictated by Marcelino Thomas MD @ 04/04/2023 9:17:35 AM Assessment and Plan Assessment and plan (1) Bowel obstruction: Status: Acute (2) Traumatic brain injury: Status: Acute Plan The patient is an 82-year-old female with a likely bowel obstruction secondary to mass versus stricture versus inflammation of the hepatic flexure. I reviewed the imaging myself and with the radiologist. There is note discrete mass, only thickening in the area therefore though the picture seems most clinically consistent with malignancy, this is not definite based on imaging. There is some enlarged lymph nodes in the area as well the most recent CT. No sign of metastasis in the liver. I discussed with the patient and her daughter my concerns. Currently her abdomen is benign though it is distended. I recommended to them NG decompression which may help relieve some of the abdominal discomfort. We will then obtain a Gastrografin enema and colonoscopy on Sunday. If she has malignancy then we would likely plan on resection since she is obstructed. I would also plan on a CT scan the chest for staging. They understand that if her pain worsened over the weekend and she were to develop signs of ischemia from overdistention of the cecum, then we would need to perform surgery more urgently. I explained that evaluation with colonoscopy is warranted because if, for example she does not have malignancy or structural abnormality then I would not want to subject her to surgery unnecessarily, though certainly from imaging it seems as though there is an obstruction there. The G[facility] colonoscopy have been ordered and scheduled. The hospitalist will admit the patient. She is going to get an NG tube placed for decompression. I recommend only ice chips and swabs for comfort and explained the rationale behind this to the patient and her daughter. If her condition changes then we will consider surgery more expeditiously. I did discuss the need for antibiotics with the hospitalist. This is been going on for 6 weeks and she does not have an elevated white blood cell count. I think it is reasonable to hold off on additional antibiotics at this time.
--- NOTE | 2023-05-11 14:21 | CRLHL7_ITS ---
For Patients: As a result of the Century Cures Act, medical imaging exams and procedure reports are released immediately into your electronic medical record. You may view this report before your referring provider. If you have questions, please contact your health care provider. INDICATION: NG tube placement. COMPARISON: Abdominal radiographs 05/11/2023 at 8:55 a.m. TECHNIQUE: Abdomen 1 view. FINDINGS: Enteric tube with tip and side hole projected over the stomach. Few mildly prominent small bowel loops in the upper abdomen. No free air under the hemidiaphragms. The visualized lungs are clear. Normal heart size. Degenerative changes of the spine. IMPRESSION: 1. Enteric tube with tip and side hole projected over the stomach. 2. Few mildly prominent small bowel loops in the upper abdomen. Dictated by Opal Blue MD @ 05/11/2023 2:58:03 PM (Electronically Signed)
--- NOTE | 2023-05-11 14:39 | ED.NURSE ---
16 georgian nasogastric tube placed. Nose clip placed at 60. ~300 mL sanguinous fluid output. Placement verified by auscultation and xray. Verbal confirmation from MD on xray placement. Tube pinned to pt's shirt.
--- NOTE | 2023-05-11 16:25 | P.IMPN_ITS ---
Subjective Date Seen: 05/11/23 Exam Const: Vital Signs, click to edit/add: Vital Signs - 24 hr 05/11/23 07:56 05/11/23 10:22 05/11/23 10:30 Temperature 97.8 F Pulse Rate 78 67 Pulse Rate [Left P ulse Oximeter] Pulse Rate [Pulse Oximeter] 100 Respiratory Rate 17 Blood Pressure Blood Pressure [Le ft Arm] Blood Pressure [Ri ght Upper Arm] 93/62 Pulse Oximetry 97 98 96 Oxygen Delivery Me od Room Air Room Air 05/11/23 10:32 05/11/23 10:45 05/11/23 11:02 Temperature Pulse Rate 70 67 72 Pulse Rate [Left P ulse Oximeter] Pulse Rate [Pulse Oximeter] Respiratory Rate Blood Pressure 118/71 Blood Pressure [Le ft Arm] Blood Pressure [Ri ght Upper Arm] Pulse Oximetry 94 92 97 Oxygen Delivery Me thod 05/11/23 11:03 05/11/23 11:15 05/11/23 11:30 Temperature Pulse Rate 73 71 74 Pulse Rate [Left P ulse Oximeter] Pulse Rate [Pulse Oximeter] Respiratory Rate Blood Pressure 119/64 Blood Pressure [Le ft Arm] Blood Pressure [Ri ght Upper Arm] Pulse Oximetry 96 91 90 Oxygen Delivery Me thod 05/11/23 11:32 05/11/23 11:45 05/11/23 12:00 Temperature Pulse Rate 71 71 72 Pulse Rate [Left P ulse Oximeter] Pulse Rate [Pulse Oximeter] Respiratory Rate Blood Pressure 113/59 L Blood Pressure [Le ft Arm] Blood Pressure [Ri ght Upper Arm] Pulse Oximetry 90 90 90 Oxygen Delivery Me thod 05/11/23 12:02 05/11/23 12:15 05/11/23 12:30 Temperature Pulse Rate 71 69 69 Pulse Rate [Left P ulse Oximeter] Pulse Rate [Pulse Oximeter] Respiratory Rate Blood Pressure 115/66 Blood Pressure [Le ft Arm] Blood Pressure [Ri ght Upper Arm] Pulse Oximetry 90 92 91 Oxygen Delivery Me thod 05/11/23 12:32 05/11/23 12:45 05/11/23 13:00 Temperature Pulse Rate 79 67 73 Pulse Rate [Left P ulse Oximeter] Pulse Rate [Pulse Oximeter] Respiratory Rate Blood Pressure 113/63 Blood Pressure [Le ft Arm] Blood Pressure [Ri ght Upper Arm] Pulse Oximetry 91 91 96 Oxygen Delivery Me thod 05/11/23 13:01 05/11/23 13:15 05/11/23 13:30 Temperature Pulse Rate 69 68 68 Pulse Rate [Left P ulse Oximeter] Pulse Rate [Pulse Oximeter] Respiratory Rate Blood Pressure 122/74 Blood Pressure [Le ft Arm] Blood Pressure [Ri ght Upper Arm] Pulse Oximetry 96 97 98 Oxygen Delivery Me thod 05/11/23 13:32 05/11/23 13:45 05/11/23 14:00 Temperature Pulse Rate 67 75 79 Pulse Rate [Left P ulse Oximeter] Pulse Rate [Pulse Oximeter] Respiratory Rate Blood Pressure 128/78 Blood Pressure [Le ft Arm] Blood Pressure [Ri ght Upper Arm] Pulse Oximetry 97 97 97 Oxygen Delivery Me thod 05/11/23 14:02 05/11/23 14:15 05/11/23 14:30 Temperature Pulse Rate 69 83 79 Pulse Rate [Left P ulse Oximeter] Pulse Rate [Pulse Oximeter] Respiratory Rate Blood Pressure 120/63 Blood Pressure [Le ft Arm] Blood Pressure [Ri ght Upper Arm] Pulse Oximetry 97 90 99 Oxygen Delivery Me thod 05/11/23 14:32 05/11/23 14:33 05/11/23 14:45 Temperature Pulse Rate 79 78 72 Pulse Rate [Left P ulse Oximeter] Pulse Rate [Pulse Oximeter] Respiratory Rate Blood Pressure 138/77 Blood Pressure [Le ft Arm] Blood Pressure [Ri ght Upper Arm] Pulse Oximetry 99 98 96 Oxygen Delivery Me thod 05/11/23 15:00 05/11/23 15:15 Temperature Pulse Rate 72 Pulse Rate [Left P ulse Oximeter] 80 Pulse Rate [Pulse Oximeter] Respiratory Rate 16 Blood Pressure Blood Pressure [Le ft Arm] 141/77 H Blood Pressure [Ri ght Upper Arm] Pulse Oximetry 94 99 Oxygen Delivery Me od Room Air Labs Labs: Laboratory Results - last 24 hr 05/11/23 10:00 WBC 8.09 RBC 4.96 Hgb 15.0 Hct 43.7 MCV 88 MCH 30 MCHC 34 RDW Coeff of Ashish 11.9 Plt Count 231 Neut % (Auto) 85.6 H Lymph % (Auto) 9.5 L Crawford % (Auto) 4.7 Eos % (Auto) 0.0 Baso % (Auto) 0.1 Neut # (Auto) 6.90 Lymph # (Auto) 0.80 L Crawford # (Auto) 0.40 Eos # (Auto) 0.00 Baso # (Auto) 0.01 Abs Immat Gran (auto) 0.01 Imm/Tot Granulo (auto) 0.1 ESR 9 Sodium 136 Potassium 4.3 Chloride 101 Carbon Dioxide 25 Anion Gap 10 BUN 16 Creatinine 0.7 Estimated Creat Clear 36.16 Estimated GFR 85 Glucose 113 Calcium 10.1 Total Bilirubin 0.8 Direct Bilirubin 0.0 AST 28 ALT 13 Alkaline Phosphatase 67 C-Reactive Protein 1.3 H Total Protein 7.4 Albumin 4.2 TSH 0.224 L
--- NOTE | 2023-05-11 16:26 | PM.IMHP1 ---
Hospitalist- H&P: HPI History of Present Illness Time Seen by Provider: 15:00 Date Seen: 05/11/23 Chief complaint: Abdominal pain and distension Narrative: Rolanda Contreras is a 82 year old woman presents with a 2-3 day history of increasing abdominal pain, distention, nausea, and vomiting. Has not had a satisfactory bowel movement for roughly 6 weeks. Presented to the emergency department about 3 weeks ago noting no bowel movement for 3-4 days with history of daily bowel movements. Treated for constipation. At that time CT scan of abdomen and pelvis demonstrated large amount of stool in the cecum and proximal portion of ascending colon. Noted on that CT scan was what appeared to be an area of focal inflammation in the distal ascending colon presumed to possibly represent a focal colitis. Was able to clear that stool with a round of GoLYTELY. Stools have been small in size since then. Admittedly she has not been eating solid foods but subsiding mostly on soup and Campos. Was treated with docusate sodium and later switched to senna. Repeat abdominal x-ray in outpatient clinic setting demonstrated moderate residual stool but with decreased colonic stool burden compared to previously. Again over the last 2-3 days the abdominal pain has become increasingly problematic and she has notice increased distension particularly along the right side of the abdomen. Over the last 24 hours she has developed nausea and vomiting. Interestingly vomiting seems to have helped with some of the distension and pain. Feels like she has to passed flatus but is unable to do so. Denies diarrhea. No blood loss of any sort. Denies abdominal angina. Her last colonoscopy was when she was 48 years of age and it was reportedly normal. Does have a daughter who had cancerous polyp that was removed by polypectomy. Patient denies bloody stools or blood loss per rectum. Her father had an abdominal aortic aneurysm. Patient has never been told she has an abdominal aortic aneurysm. Patient does not have hypertension. Review of Systems Status of ROS: Reports: 10 or more systems reviewed and unremarkable except as noted in History and below Narrative: No fevers, rigors, diaphoresis. She is uncertain about weight gain or weight loss. She acknowledges decreased oral intake particularly over the last 6 weeks. No recent travel to 3[place] country, and no recent camping, trauma, or injury. Previously smoked tobacco. Has not smoked tobacco for number of years. Drinks alcoholic beverages only periodically perhaps 3-4 times per month at the most and maybe 3 drinks at a time at the most. No other street or recreational drug use. Denies chest heaviness, pressure, tightness, or pain. Denies syncope or near-syncope. Denies palpitations or chest fluttering. Denies cough, dyspnea at rest, paroxysmal nocturnal dyspnea, orthopnea. Denies edema. Denies claudication. 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 No other focal motor neurologic deficits. No myalgias or arthralgias. Designates her 2 daughters, Charlotte Cain and Columba Brown, as her [place] of health care attorney for health should that be required, there cell phone numbers are [phone] and [phone], respectively. Patient clearly has thought through and expresses readily a desire for DNR DNI resuscitation status in the event of cardiopulmonary demise. [facility] Medical History Traumatic brain injury ?S06.9XAA - Unspecified intracranial injury with loss of consciousness status unknown, initial encounter (ICD-10) Hoarseness ?R49.0 - Dysphonia (ICD-10) Cervical pain (neck) ?M54.2 - Cervicalgia (ICD-10) Osteoarthritis of left knee ?M17.12 - Unilateral primary osteoarthritis, left knee (ICD-10) Osteoarthritis of left hip ?M16.12 - Unilateral primary osteoarthritis, left hip (ICD-10) Prolapse of vaginal wall ?N81.10 - Cystocele, unspecified (ICD-10) Primary osteoarthritis ?M19.91 - Primary osteoarthritis, unspecified site (ICD-10) Injury of head ?S09.90XA - Unspecified injury of head, initial encounter (ICD-10) Hyperlipidemia ?E78.5 - Hyperlipidemia, unspecified (ICD-10) Gastroesophageal reflux disease ?K21.9 - Gastro-esophageal reflux disease without esophagitis (ICD-10) Dermatitis ?L30.9 - Dermatitis, unspecified (ICD-10) Anxiety ?F41.9 - Anxiety disorder, unspecified (ICD-10) History of pterygium ?Z86.69 - Personal history of other diseases of the nervous system and sense organs (ICD-10) History of Mohs micrographic surgery for skin cancer ?Z85.828 - Personal history of other malignant neoplasm of skin (ICD-10) ?Z98.890 - Other specified postprocedural states (ICD-10) History of malignant neoplasm of skin ?Z85.828 - Personal history of other malignant neoplasm of skin (ICD-10) Surgical History 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) ?Z96.651 - Presence of right artificial knee joint (ICD-10) History of varicose vein stripping ?Z98.890 - Other specified postprocedural states (ICD-10) History of tubal ligation ?Z98.51 - Tubal ligation status (ICD-10) History of total knee replacement ?Z96.659 - Presence of unspecified artificial knee joint (ICD-10) History of hysterectomy ?Z90.710 - Acquired absence of both cervix and uterus (ICD-10) History of hemorrhoidectomy ?Z98.890 - Other specified postprocedural states (ICD-10) History of colonoscopy ?Z98.890 - Other specified postprocedural states (ICD-10) History of carpal tunnel release ?Z98.890 - Other specified postprocedural states (ICD-10) History of bunionectomy ?Z98.890 - Other specified postprocedural states (ICD-10) History of appendectomy ?Z90.49 - Acquired absence of other specified parts of digestive tract (ICD-10) Family History Father AAA (abdominal aortic aneurysm) Coronary artery disease Daughter Cancer High blood pressure Sister History of hyperlipidemia High blood pressure Aunt Tuberculosis Social History Narrative: Former smoker, . Lives alone Smoking Status: Former smoker Do you use any of these nicotine containing products: None Second hand tobacco smoke exposure: No How often do you have a drink containing alcohol: 2-4 times a month How many standard drinks containing alcohol do you have on a typical day: 3 or 4 How often do you have six or more drinks on one occasion: Never AUDIT-C Alcohol total score: 3 Non-prescribed substance use: denies use service: No Meds Home Medications and Allergies Home Medications Medication Instructions Recorded Confirmed Type B-complex with vitamin C 1 cap PO DAILY 03/03/22 05/11/23 History cholecalciferol (vitamin D3) 50 2,000 unit PO DAILY 03/03/22 05/11/23 History mcg (2,000 unit) tablet magnesium oxide 400 mg (241.3 mg 800 mg PO DAILY 03/03/22 05/11/23 History magnesium) tablet multivitamin 1 tab PO QAM 03/03/22 05/11/23 History omega-3 acid ethyl esters 1 gram 1 cap PO DAILY 03/03/22 05/11/23 History capsule potassium gluconate 500 mg (83 mg) 500 mg PO DAILY 03/03/22 05/11/23 History tablet vit A 300 mcg-C 200 mg-E 27 1 tab PO DAILY 03/03/22 05/11/23 History mg-lutein 2 mg and minerals tablet (Ocuvite with Lutein) Allergies Allergy/AdvReac Type Severity Reaction Status Date / Time No Known Allergies Allergy Verified 05/11/23 11:06 Exam Narrative: Exam Narrative: I seeing examine her in her hospital room. She has an NG tube in at low, intermittent suctioning. She appears comfortable and in no acute distress by the time I see her. Vision and hearing are grossly intact. Alert, oriented to self, place, time, situation. Totally able to communicate her needs and wants. Friendly, articulate, cooperative. Apprehensive about her situation but realistic. Mood and affect are congruent. Does not have jaundice or icterus. No petechiae, rashes, ecchymoses. Pupils are equally round and reactive to light and accommodation. Extraocular muscles are intact. Conjugate gaze. Midline nasal septum. NG tube in left nostril. Oropharynx benign with dentition in fair repair. Dry buccal mucosa. Neck is supple. Midline trachea. No head and neck lymphadenopathy. Lungs are clear to auscultation without wheezing, rhonchi, or rales. Chest wall excursions are full. No CVA tenderness. Heart tones with regular rhythm, normal S1-S2, without murmur, gallop, rub. PMI is not laterally displaced. Abdomen with hyperactive bowel sounds. Mildly distended. No rebound or guarding. Extremities without edema. Capillary refill less than 3 seconds. Moves all 4 extremities. Independent transfer, station, and gait. No tremor, asterixis, or ataxia. Const: Vital Signs, click to edit/add: Vital Signs - 24 hr 05/11/23 07:56 05/11/23 10:22 05/11/23 10:30 Temperature 97.8 F Pulse Rate 78 67 Pulse Rate [Left P ulse Oximeter] Pulse Rate [Pulse Oximeter] 100 Respiratory Rate 17 Blood Pressure Blood Pressure [Le ft Arm] Blood Pressure [Ri ght Upper Arm] 93/62 Pulse Oximetry 97 98 96 [facility] Room Air 05/11/23 10:32 05/11/23 10:45 05/11/23 11:02 Temperature Pulse Rate 70 67 72 Pulse Rate [Left P ulse Oximeter] Pulse Rate [Pulse Oximeter] Respiratory Rate Blood Pressure 118/71 Blood Pressure [Le ft Arm] Blood Pressure [Ri ght Upper Arm] Pulse Oximetry 94 92 97 Oxygen Delivery Mt thod 05/11/23 11:03 05/11/23 11:15 05/11/23 11:30 Temperature Pulse Rate 73 71 74 Pulse Rate [Left P ulse Oximeter] Pulse Rate [Pulse Oximeter] Respiratory Rate Blood Pressure 119/64 Blood Pressure [Le ft Arm] Blood Pressure [Ri ght Upper Arm] Pulse Oximetry 96 91 90 Oxygen Delivery Mt thod 05/11/23 11:32 05/11/23 11:45 05/11/23 12:00 Temperature Pulse Rate 71 71 72 Pulse Rate [Left P ulse Oximeter] Pulse Rate [Pulse Oximeter] Respiratory Rate Blood Pressure 113/59 L Blood Pressure [Le ft Arm] Blood Pressure [Ri ght Upper Arm] Pulse Oximetry 90 90 90 Oxygen Delivery Mt thod 05/11/23 12:02 05/11/23 12:15 05/11/23 12:30 Temperature Pulse Rate 71 69 69 Pulse Rate [Left P ulse Oximeter] Pulse Rate [Pulse Oximeter] Respiratory Rate Blood Pressure 115/66 Blood Pressure [Le ft Arm] Blood Pressure [Ri ght Upper Arm] Pulse Oximetry 90 92 91 Oxygen Delivery Mt thod 05/11/23 12:32 05/11/23 12:45 05/11/23 13:00 Temperature Pulse Rate 79 67 73 Pulse Rate [Left P ulse Oximeter] Pulse Rate [Pulse Oximeter] Respiratory Rate Blood Pressure 113/63 Blood Pressure [Le ft Arm] Blood Pressure [Ri ght Upper Arm] Pulse Oximetry 91 91 96 Oxygen Delivery Me thod 05/11/23 13:01 05/11/23 13:15 05/11/23 13:30 Temperature Pulse Rate 69 68 68 Pulse Rate [Left P ulse Oximeter] Pulse Rate [Pulse Oximeter] Respiratory Rate Blood Pressure 122/74 Blood Pressure [Le ft Arm] Blood Pressure [Ri ght Upper Arm] Pulse Oximetry 96 97 98 Oxygen Delivery Me thod 05/11/23 13:32 05/11/23 13:45 05/11/23 14:00 Temperature Pulse Rate 67 75 79 Pulse Rate [Left P ulse Oximeter] Pulse Rate [Pulse Oximeter] Respiratory Rate Blood Pressure 128/78 Blood Pressure [Le ft Arm] Blood Pressure [Ri ght Upper Arm] Pulse Oximetry 97 97 97 Oxygen Delivery Me thod 05/11/23 14:02 05/11/23 14:15 05/11/23 14:30 Temperature Pulse Rate 69 83 79 Pulse Rate [Left P ulse Oximeter] Pulse Rate [Pulse Oximeter] Respiratory Rate Blood Pressure 120/63 Blood Pressure [Le ft Arm] Blood Pressure [Ri ght Upper Arm] Pulse Oximetry 97 90 99 Oxygen Delivery Me thod 05/11/23 14:32 05/11/23 14:33 05/11/23 14:45 Temperature Pulse Rate 79 78 72 Pulse Rate [Left P ulse Oximeter] Pulse Rate [Pulse Oximeter] Respiratory Rate Blood Pressure 138/77 Blood Pressure [Le ft Arm] Blood Pressure [Ri ght Upper Arm] Pulse Oximetry 99 98 96 Oxygen Delivery Me thod 05/11/23 15:00 05/11/23 15:15 Temperature Pulse Rate 72 Pulse Rate [Left P ulse Oximeter] 80 Pulse Rate [Pulse Oximeter] Respiratory Rate 16 Blood Pressure Blood Pressure [Le ft Arm] 141/77 H Blood Pressure [Ri ght Upper Arm] Pulse Oximetry 94 99 Oxygen Delivery Me thod Room Air Documenting provider has reviewed patient's vital signs: yes Hospitalist - H&P: Result Labs Labs: Short CBC 05/11/23 Range/Units 10:00 WBC 8.09 (4.50-11.00) K/uL Hgb 15.0 (12.0-16.0) gm/dL Hct 43.7 (33.0-51.0) % Plt Count 231 (140-440) K/uL BMP 05/11/23 10:00 Sodium 136 Potassium 4.3 Chloride 101 Carbon Dioxide 25 BUN 16 Creatinine 0.7 Glucose 113 Calcium 10.1 Liver Function 05/11/23 Range/Units 10:00 Total Bilirubin 0.8 (0.1-1.5) mg/dL Direct Bilirubin 0.0 (0.0-0.5) mg/dL AST 28 (12-35) U/L ALT 13 (4-35) U/L Alkaline Phosphatase 67 (40-150) U/L Albumin 4.2 (3.3-5.0) g/dL Imaging Abdominal x-ray: Attestation: I have reviewed the pertinent imaging results. Radiologist's impression: Pre NG tube placement, Findings/Impression: No definite evidence of obstruction with a single borderline diameter loop of small bowel in the mid abdomen which can be seen in enteritis/ileus. Minimal stool within the colon. Phleboliths in the pelvis. Bilateral hip osteoarthritis. Post NG tube placement, tip of NG tube adequately placed CT scan of abdomen and pelvis: Attestation: I have reviewed the pertinent imaging results. Radiologist's impression: IMPRESSION: 1. Multiple dilated loops of ileum with dilation of the cecum and proximal ascending colon, which may represent ileus versus partial bowel obstruction. There is circumferential wall thickening and mild pericolonic inflammatory stranding with prominent lymph nodes involving the distal ascending colon, which may represent colitis; however, an underlying lesion is not excluded. Recommend direct visualization when clinically appropriate. 2. Right lower lobe pulmonary nodule measuring 4 mm. If the patient is at increased risk for lung cancer, consider repeat chest CT in 12 months according to Fleischner Society recommendations. Assessment and Plan Assessment and plan (1) Colon obstruction: Problem comment: - CT scan of abdomen and pelvis on 05/11/2023 demonstrated: Multiple dilated loops of ileum with dilation of the cecum and proximal ascending colon, which may represent ileus versus partial bowel obstruction. There is circumferential wall thickening and mild pericolonic inflammatory stranding with prominent lymph nodes involving the distal ascending colon, which may represent colitis; however, an underlying lesion is not excluded. appropriate. Differential diagnosis includes colonic neoplasm, inflammation, ischemia, stricture. Doubt active infection. - Admit to hospital with surgical consultation. NG tube at low, intermittent suctioning for decompression. NPO. IV fluids. IV analgesics and antiemetics p.r.n. Status: Acute Assessment and Plan: 1. Measure input and output 2. Daily weight 3. Ambulate in hallway minimum of 6 times daily 4. Will discuss with Dr. Gamboa the possibility of additional testing, including Gastrografin enema and colonoscopy, in the near future and appropriate bowel prep 5. Given her decreased oral intake over the last few weeks and particularly over the last few days, will employed D5 normal saline. With NG tube in place we will add potassium chloride to the solution as well. 6. Daily CBC, electrolytes. Will also monitor other labs as appropriate, including periodic lactate, CRP, LFTs, and so forth. (2) Pulmonary nodule: Problem comment: - CT scan of abdomen and pelvis obtained on 05/11/2023 demonstrated: Right lower lobe pulmonary nodule measuring 4 mm. Given that she is at increased risk for lung cancer, consider repeat chest CT in 12 months according to Fleischner Society recommendations. Status: Acute (3) History of tobacco use: Status: Acute Plan 1. Patient agreeable with above stated plans and recommendations. 2. Answered patient's questions are satisfaction. 3. Will honor her requests relative to power of health care attorney should that be required and resuscitation status.
[2023-05-11] MEDS: 5 % DEXTROSE/0.9% SOD CHLORIDE 1,000 ML 100 ML IV (17:05)
[2023-05-11 17:24] LABS: Lipase* 84 U/L (23-300)
--- NOTE | 2023-05-11 18:51 | PC.NURSE ---
End of shift.. VS on RA. Alert and oreintated. patient arrived @ 1515 NG tube present @ 60cm minimal output since arrival- marked on canister. 2 BM this shift of watery stool. Pt doesn't report any discomfort other than the NG tube. EKG was complete- NSR given to Dr Angeles. D5 and normal saline running in R AC @ 100 ml an hour. NPO diet- per Dr Angeles she is able to have sips and chips minimally. SBA to bathroom. NG to low intermittent suction. No other concerns at this time. The patient calls appropriately. Workup completed in the ED... Dr Gamboa is following plan is for procedure on Sunday.. see orders. Call light within reach.
[2023-05-12] VITALS (8 sets, daily range): BP systolic 116–153; BP diastolic 65–85; PULSE 60–75; RESP 16–18; TEMP 36.1–37; O2SAT 93–97
[2023-05-12] MEDS: 5 % DEXTROSE/0.9% SOD CHLORIDE 1,000 ML 100 ML IV ×2 (03:01→17:11)
[2023-05-12 06:55] LABS: Lactate* 0.8 mmol/L (0.5-1.9)
--- NOTE | 2023-05-12 06:59 | PC.NURSE ---
End of shift report [id number]: Pt alert and oriented x3. Afebrile. Pt denies pain, SOB, Chest pain, and N/V. Pt's NG tube is in left Nare at 60 cm patent and draining, output was 170 in total for shift, output color is brown. Bowel sounds are hypoactive. Pt is tolerating a NPO diet. Pt is SBA with IV pole and to disconnect NG to use bathroom. Pt had x1 liquid brown stool. Pt slept throughout most of night.
[2023-05-12 07:02] LABS: Hematocrit 36.7 % (33.0-51.0); Hemoglobin* 12.4 gm/dL (12.0-16.0); Mean Corpuscular HGB Conc 34 gm/dL (32-36); Mean Corpuscular Hemoglobin 31 pg (26-34); Mean Corpuscular Volume 91 fL (80-100); Platelet Count* 200 K/uL (140-440); Red Blood Count 4.05 m/uL (4.00-5.20); White Blood Count* 5.11 K/uL (4.50-11.00)
[2023-05-12 07:10] LABS: Slide Review Reflex No
[2023-05-12 07:28] LABS: Chloride* 109 mmol/L (96-114); Potassium* 4.5 mmol/L (3.6-5.1); Sodium* 138 mmol/L (135-149)
[2023-05-12 07:31] LABS: Anion Gap 2 mEq/L (7-15); Blood Urea Nitrogen* 12 mg/dL (7-30); Carbon Dioxide* 27 mmol/L (20-32); Creatinine* 0.5 mg/dL (0.5-1.5); Est. Creatinine Clearance* 37.01; Estimated Glomerular Filt Rate 92 ml/min; Glucose* 110 mg/dL (60-115)
[2023-05-12 07:32] LABS: Calcium* 8.8 mg/dL (8.4-10.6); Magnesium* 2.4 mg/dL (1.5-2.6); Phosphorus* 2.5 mg/dL (2.5-4.5)
[2023-05-12 07:34] LABS: C Reactive Protein* 2.3 mg/dL (0.5-1.0)
[2023-05-12] MEDS: BENZOCAINE/MENTHOL 1 EACH LOZENGE MUCOUS MEM ×3 (07:59→19:03)
--- NOTE | 2023-05-12 08:22 | P.IMPN_ITS ---
Progress Note: A&P Assessment and plan (1) Colon obstruction: Problem details: - CT scan of abdomen and pelvis on 05/11/2023 reviewed. D/W with gen surg. plan is to prep tomorrow and scope on 05/14 - Differential diagnosis includes colonic neoplasm, inflammation, ischemia, stricture. Doubt active infection. - Admit to hospital with surgical consultation. NG tube at low, intermittent suctioning for decompression. NPO. IV fluids. IV analgesics and antiemetics p.r.n. Status: Acute (2) Pulmonary nodule: Problem details: - CT scan from admission: Right lower lobe pulmonary nodule measuring 4 mm. Given that she is at increased risk for lung cancer, consider repeat chest CT in 12 months according to Fleischner Society recommendations. Status: Acute (3) History of tobacco use: Status: Acute Subjective Date Seen: 05/12/23 Interval history: Daily Progress Note - Hospital Medicine Day #: 2 CC: chronic constipation, colitis, partial bowel obstruction. Has NG. OVERNIGHT UPDATES FROM STAFF & MED, LAB, IMAGING UPDATES -remains afebrile -123/85, 121/66. -pulse in the 60s -respiratory rate 16, unlabored. Pulse ox 94% room air. -Morning weight 63 kilos CBC reassuring. No leukocytosis. Not anemic. Normal platelets. -electrolytes are all normal. Renal function normal. Glucose normal. Lactate normal. -CRP unremarkable with just small bump overnight. 2.3 this morning. -passing stool -brown liquid in NG tube -4mg of morphine at 10 am 05/11 - none since -on D5NS with potassium -reviewed home meds; all supplements. all on hold 2/2 NG. RN: End of shift report [id number]: Pt alert and oriented x3. Afebrile. Pt denies pain, SOB, Chest pain, and N/V. Pt's NG tube is in left Nare at 60 cm patent and draining, output was 170 in total for shift, output color is brown. Bowel sounds are hypoactive. Pt is tolerating a NPO diet. Pt is SBA with IV pole and to disconnect NG to use bathroom. Pt had x1 liquid brown stool. Pt slept throughout most of night. CT from admission: Multiple dilated loops of ileum with dilation of the cecum and proximal ascending colon, which may represent ileus versus partial bowel obstruction. There is circumferential wall thickening and mild pericolonic inflammatory stranding with prominent lymph nodes involving the distal ascending colon, which may represent colitis; however, an underlying lesion is not excluded. Recommend direct visualization when clinically appropriate. Objective: pleasant; noticeable discomfort from NG tube. Vitals: see above Lungs: Clear. Cardiac: S1S2. Abdomen: soft. good bowel sounds. Disposition/Potential discharge - Likely to return to previous living situation. Today I spent 50minutes seeing the patient, reviewing Expanse and EPIC notes/diagnostics, discussing the care plan with our care time that includes social work, PT/OT, pharmacy, RT, senior living and documenting my impressions and plan in the medical record. ACP first 30 mins [id number] I went over options for care during this current hospitalization and explained the difference between palliative care and hospice care. I described the likelihood of returning to previous functioning and what the options are going forward for care. Exam Const: Vital Signs, click to edit/add: Vital Signs - 24 hr 05/11/23 10:22 05/11/23 10:30 05/11/23 10:32 Temperature Pulse Rate 78 67 70 Pulse Rate [Left P ulse Oximeter] Respiratory Rate Blood Pressure 118/71 Blood Pressure [Le ft Arm] Pulse Oximetry 98 96 94 Oxygen Delivery Me thod Room Air 05/11/23 10:45 05/11/23 11:02 05/11/23 11:03 Temperature Pulse Rate 67 72 73 Pulse Rate [Left P ulse Oximeter] Respiratory Rate Blood Pressure 119/64 Blood Pressure [Le ft Arm] Pulse Oximetry 92 97 96 Oxygen Delivery Me thod 05/11/23 11:15 05/11/23 11:30 05/11/23 11:32 Temperature Pulse Rate 71 74 71 Pulse Rate [Left P ulse Oximeter] Respiratory Rate Blood Pressure 113/59 L Blood Pressure [Le ft Arm] Pulse Oximetry 91 90 90 Oxygen Delivery Me thod 05/11/23 11:45 05/11/23 12:00 05/11/23 12:02 Temperature Pulse Rate 71 72 71 Pulse Rate [Left P ulse Oximeter] Respiratory Rate Blood Pressure 115/66 Blood Pressure [Le ft Arm] Pulse Oximetry 90 90 90 Oxygen Delivery Me thod 05/11/23 12:15 05/11/23 12:30 05/11/23 12:32 Temperature Pulse Rate 69 69 79 Pulse Rate [Left P ulse Oximeter] Respiratory Rate Blood Pressure 113/63 Blood Pressure [Le ft Arm] Pulse Oximetry 92 91 91 Oxygen Delivery Me thod 05/11/23 12:45 05/11/23 13:00 05/11/23 13:01 Temperature Pulse Rate 67 73 69 Pulse Rate [Left P ulse Oximeter] Respiratory Rate Blood Pressure 122/74 Blood Pressure [Le ft Arm] Pulse Oximetry 91 96 96 Oxygen Delivery Me thod 05/11/23 13:15 05/11/23 13:30 05/11/23 13:32 Temperature Pulse Rate 68 68 67 Pulse Rate [Left P ulse Oximeter] Respiratory Rate Blood Pressure 128/78 Blood Pressure [Le ft Arm] Pulse Oximetry 97 98 97 Oxygen Delivery Me thod 05/11/23 13:45 05/11/23 14:00 05/11/23 14:02 Temperature Pulse Rate 75 79 69 Pulse Rate [Left P ulse Oximeter] Respiratory Rate Blood Pressure 120/63 Blood Pressure [Le ft Arm] Pulse Oximetry 97 97 97 Oxygen Delivery Me thod 05/11/23 14:15 05/11/23 14:30 05/11/23 14:32 Temperature Pulse Rate 83 79 79 Pulse Rate [Left P ulse Oximeter] Respiratory Rate Blood Pressure 138/77 Blood Pressure [Le ft Arm] Pulse Oximetry 90 99 99 Oxygen Delivery Me thod 05/11/23 14:33 05/11/23 14:45 05/11/23 15:00 Temperature Pulse Rate 78 72 72 Pulse Rate [Left P ulse Oximeter] Respiratory Rate Blood Pressure Blood Pressure [Le ft Arm] Pulse Oximetry 98 96 94 Oxygen Delivery Me thod 05/11/23 15:15 05/11/23 17:00 05/11/23 17:00 Temperature Pulse Rate Pulse Rate [Left P ulse Oximeter] 80 Respiratory Rate 16 18 18 Blood Pressure Blood Pressure [Le ft Arm] 141/77 H Pulse Oximetry 99 98 98 Oxygen Delivery Me thod Room Air Room Air Room Air 05/11/23 19:30 05/12/23 00:55 05/12/23 00:55 Temperature 98.4 F Pulse Rate Pulse Rate [Left P ulse Oximeter] 67 63 Respiratory Rate 16 16 16 Blood Pressure Blood Pressure [Le ft Arm] 143/68 H Pulse Oximetry 94 93 Oxygen Delivery Me od Room Air Room Air 10/07/23 00:55 05/12/23 03:02 Temperature 98.1 F 98.1 F Pulse Rate Pulse Rate [Left P ulse Oximeter] 63 60 Respiratory Rate 16 16 Blood Pressure Blood Pressure [Le ft Arm] 121/66 123/85 Pulse Oximetry 93 94 Oxygen Delivery Ia thod Room Air Room Air Labs Labs: Laboratory Results - last 24 hr 05/11/23 05/12/23 10:00 05:33 WBC 8.09 5.11 RBC 4.96 4.05 Hgb 15.0 12.4 Hct 43.7 36.7 MCV 88 91 MCH 30 31 MCHC 34 34 RDW Coeff of Ashish 11.9 Plt Count 231 200 Neut % (Auto) 85.6 H Lymph % (Auto) 9.5 L Gaines % (Auto) 4.7 Eos % (Auto) 0.0 Baso % (Auto) 0.1 Neut # (Auto) 6.90 Lymph # (Auto) 0.80 L Gaines # (Auto) 0.40 Eos # (Auto) 0.00 Baso # (Auto) 0.01 Abs Immat Gran (auto) 0.01 Imm/Tot Granulo (auto) 0.1 ESR 9 Sodium 136 138 Potassium 4.3 4.5 Chloride 101 109 Carbon Dioxide 25 27 Anion Gap 10 2 L BUN 16 12 Creatinine 0.7 0.5 Estimated Creat Clear 36.16 37.01 Estimated GFR 85 92 Glucose 113 110 Lactate 0.8 Calcium 10.1 8.8 Phosphorus 2.5 Magnesium 2.4 Total Bilirubin 0.8 Direct Bilirubin 0.0 AST 28 ALT 13 Alkaline Phosphatase 67 C-Reactive Protein 1.3 H 2.3 H Total Protein 7.4 Albumin 4.2 Lipase 84 TSH 0.224 L Lab Acknowledgement Test Added
--- NOTE | 2023-05-12 10:08 | PM.GSPN ---
Subjective Subjective Date Seen: 05/12/23 Interval history: Rolanda feels much better today. She states that the NG tube has helped. It is irritating in her throat, however her abdominal pain is nearly gone and she did pass a small amount of stool yesterday. She feels as though she is still more distended than her baseline. Today is her 83th birthday Exam Narrative: Exam Narrative: General: No acute distress HEENT: NG in place with reddish brown output. Three hundred out in the ER and 250 out since admission. CV: Regular rate Respiratory: Breathing nonlabored on room air Abdomen: Mildly distended. Nontender to palpation. Const: Vital Signs, click to edit/add: Vital Signs - 24 hr 05/11/23 10:22 05/11/23 10:30 05/11/23 10:32 Temperature Pulse Rate 78 67 70 Pulse Rate [Left P ulse Oximeter] Respiratory Rate Blood Pressure 118/71 Blood Pressure [Le ft Arm] Pulse Oximetry 98 96 94 Oxygen Delivery Me od Room Air 05/11/23 10:45 05/11/23 11:02 05/11/23 11:03 Temperature Pulse Rate 67 72 73 Pulse Rate [Left P ulse Oximeter] Respiratory Rate Blood Pressure 119/64 Blood Pressure [Le ft Arm] Pulse Oximetry 92 97 96 Oxygen Delivery Me thod 05/11/23 11:15 05/11/23 11:30 05/11/23 11:32 Temperature Pulse Rate 71 74 71 Pulse Rate [Left P ulse Oximeter] Respiratory Rate Blood Pressure 113/59 L Blood Pressure [Le ft Arm] Pulse Oximetry 91 90 90 Oxygen Delivery Me thod 05/11/23 11:45 05/11/23 12:00 05/11/23 12:02 Temperature Pulse Rate 71 72 71 Pulse Rate [Left P ulse Oximeter] Respiratory Rate Blood Pressure 115/66 Blood Pressure [Le ft Arm] Pulse Oximetry 90 90 90 Oxygen Delivery Me thod 05/11/23 12:15 05/11/23 12:30 05/11/23 12:32 Temperature Pulse Rate 69 69 79 Pulse Rate [Left P ulse Oximeter] Respiratory Rate Blood Pressure 113/63 Blood Pressure [Le ft Arm] Pulse Oximetry 92 91 91 Oxygen Delivery Me thod 05/11/23 12:45 05/11/23 13:00 05/11/23 13:01 Temperature Pulse Rate 67 73 69 Pulse Rate [Left P ulse Oximeter] Respiratory Rate Blood Pressure 122/74 Blood Pressure [Le ft Arm] Pulse Oximetry 91 96 96 Oxygen Delivery Me thod 05/11/23 13:15 05/11/23 13:30 05/11/23 13:32 Temperature Pulse Rate 68 68 67 Pulse Rate [Left P ulse Oximeter] Respiratory Rate Blood Pressure 128/78 Blood Pressure [Le ft Arm] Pulse Oximetry 97 98 97 Oxygen Delivery Me thod 05/11/23 13:45 05/11/23 14:00 05/11/23 14:02 Temperature Pulse Rate 75 79 69 Pulse Rate [Left P ulse Oximeter] Respiratory Rate Blood Pressure 120/63 Blood Pressure [Le ft Arm] Pulse Oximetry 97 97 97 Oxygen Delivery Me thod 05/11/23 14:15 05/11/23 14:30 05/11/23 14:32 Temperature Pulse Rate 83 79 79 Pulse Rate [Left P ulse Oximeter] Respiratory Rate Blood Pressure 138/77 Blood Pressure [Le ft Arm] Pulse Oximetry 90 99 99 Oxygen Delivery Me thod 05/11/23 14:33 05/11/23 14:45 05/11/23 15:00 Temperature Pulse Rate 78 72 72 Pulse Rate [Left P ulse Oximeter] Respiratory Rate Blood Pressure Blood Pressure [Le ft Arm] Pulse Oximetry 98 96 94 Oxygen Delivery Me thod 05/11/23 15:15 05/11/23 17:00 05/11/23 17:00 Temperature Pulse Rate Pulse Rate [Left P ulse Oximeter] 80 Respiratory Rate 16 18 18 Blood Pressure Blood Pressure [Le ft Arm] 141/77 H Pulse Oximetry 99 98 98 Oxygen Delivery Me od Room Air Room Air Room Air 05/11/23 19:30 05/12/23 00:55 05/12/23 00:55 Temperature 98.4 F Pulse Rate Pulse Rate [Left P ulse Oximeter] 67 63 Respiratory Rate 16 16 16 Blood Pressure Blood Pressure [Le ft Arm] 143/68 H Pulse Oximetry 94 93 Oxygen Delivery Me od Room Air Room Air 05/12/23 00:55 05/12/23 03:02 05/12/23 07:00 Temperature 98.1 F 98.1 F Pulse Rate Pulse Rate [Left P ulse Oximeter] 63 60 70 Respiratory Rate 16 16 16 Blood Pressure Blood Pressure [Le ft Arm] 121/66 123/85 Pulse Oximetry 93 94 Oxygen Delivery Me thod Room Air Room Air 05/12/23 07:00 05/12/23 07:00 Temperature 97 F L Pulse Rate Pulse Rate [Left P ulse Oximeter] 70 Respiratory Rate 18 16 Blood Pressure Blood Pressure [Le ft Arm] 142/74 H Pulse Oximetry 95 95 Oxygen Delivery Me thod Room Air Room Air Labs/Imaging Labs Labs: White blood cell count remains normal. CRP is up slightly at 2.3 from 1.3. Electrolytes are normal. Imaging Imaging: X-ray shows NG tube in stomach. Progress Note: A&P Assessment and plan (1) Colon obstruction: Problem details: - CT scan of abdomen and pelvis on 05/11/2023 reviewed. - Differential diagnosis includes colonic neoplasm, inflammation, ischemia, stricture. Doubt active infection. - Admit to hospital with surgical consultation. NG tube at low, intermittent suctioning for decompression. NPO. IV fluids. IV analgesics and antiemetics p.r.n. Status: Acute Plan The patient is an 83-year-old female with likely colonic obstruction, concerning for malignancy. I again discussed the plan with the patient and her daughters. We are planning for Gastrografin enema on Sunday followed by colonoscopy. If she does have a malignant stricture then we will plan on completing staging workup and plan on surgical resection this hospitalization since she does appear to still be obstructed. We will plan on fleets enema and Gastrografin for a bowel prep. We will do this on Sunday. Today is her birthday. I think it is fine for her to have small amount of coffee or a popsicle. She may have mints and other lozenges as much as she desires. Otherwise she should be NPO. She is going to ambulate Okay for Lovenox (ordered) Follow labs Continue maintenance IV fluids The patient and her daughters were again instructed that if her condition deteriorates then we may need to proceed with surgery sooner.
[2023-05-12 13:44] LABS: Free T4 Free Thyroxine* 1.32 ng/dL (0.70-1.85)
--- NOTE | 2023-05-12 19:18 | PC.NURSE ---
Pt friendly and cooperative, denies pain other than mild throat irritation from NG. Pt states Benzocaine lozenges are effective for management. VS WNL and LS COA. Afebrile. Abdomen is soft and distended, BS hyperactive. NG to LIS at 60 is patent and draining dark brown output. Pt has walked the unit 6 times today with multiple family members around her bedside. 1 small formed BM and pt does verbalize some intermittent flatus. BG= 121 and 117, no sliding scale novolog required.
[2023-05-12] MEDS: ENOXAPARIN 40 MG/0.4 ML INJ SUBCUT (21:13)
[2023-05-13] VITALS (8 sets, daily range): BP systolic 128–152; BP diastolic 58–78; PULSE 60–96; RESP 16; TEMP 36.4–36.8; O2SAT 92–98
[2023-05-13] MEDS: MORPHINE 4 MG/ML INJ IVP ×2 (04:23→07:53)
[2023-05-13] MEDS: 5 % DEXTROSE/0.9% SOD CHLORIDE 1,000 ML 100 ML IV ×2 (04:32→13:34)
[2023-05-13] MEDS: phenoL 1.4 % THROAT SPRAY 1 SPRAY MUCOUS MEM ×4 (05:11→19:49)
[2023-05-13 06:37] LABS: Hematocrit 39.3 % (33.0-51.0); Hemoglobin* 13.1 gm/dL (12.0-16.0); Mean Corpuscular HGB Conc 33 gm/dL (32-36); Mean Corpuscular Hemoglobin 30 pg (26-34); Mean Corpuscular Volume 91 fL (80-100); Platelet Count* 209 K/uL (140-440); Red Blood Count 4.32 m/uL (4.00-5.20); Slide Review Reflex No; White Blood Count* 5.77 K/uL (4.50-11.00)
[2023-05-13 06:51] LABS: Chloride* 106 mmol/L (96-114); Potassium* 3.9 mmol/L (3.6-5.1); Sodium* 142 mmol/L (135-149)
[2023-05-13 06:54] LABS: Creatinine* 0.4 mg/dL (0.5-1.5); Est. Creatinine Clearance* 37.01; Estimated Glomerular Filt Rate 97 ml/min
[2023-05-13 06:55] LABS: Anion Gap 9 mEq/L (7-15); Blood Urea Nitrogen* 6 mg/dL (7-30); Calcium* 9.3 mg/dL (8.4-10.6); Carbon Dioxide* 27 mmol/L (20-32); Glucose* 104 mg/dL (60-115)
--- NOTE | 2023-05-13 06:56 | PC.NURSE ---
End of shift note [id number]: Pt Alert and oriented x3. Afebrile. Pt reports 10/10 back of throat and sinus soreness and achy pain, pain managed with PRN medications. Science Education Professor used tongue depressor and looked in back of throat which was pink and moist and NG tube intact. Pt's NG tube is patent and draining brown liquid. Pt walked x2 in halls. Pt tolerating NPO diet. Pt slept intermittently throughout night.
[2023-05-13 06:58] LABS: C Reactive Protein* 2.2 mg/dL (0.5-1.0)
--- NOTE | 2023-05-13 08:32 | PM.IMPN1 ---
Progress Note: A&P Assessment and plan (1) Colon obstruction: Problem details: - CT scan of abdomen and pelvis on 05/11/2023 reviewed. D/W with gen surg. plan is to prep with enemas on am 05/14. No PO prep. GGE and scope am of 05/14. - Differential diagnosis includes colonic neoplasm, inflammation, ischemia, stricture. Doubt active infection. - NG tube continues at low, intermittent suctioning for decompression. NPO. IV fluids. IV analgesics and antiemetics p.r.n. Status: Acute (2) Pulmonary nodule: Problem details: - CT scan from admission: Right lower lobe pulmonary nodule measuring 4 mm. Given that she is at increased risk for lung cancer, consider repeat chest CT in 12 months according to Fleischner Society recommendations. Status: Acute (3) History of tobacco use: Status: Acute Subjective Date Seen: 05/13/23 Interval history: Daily Progress Note - Hospital Medicine Day #: 3 CC: subacute constipation, partial bowel obstruction. abdominal pain. Has NG. OVERNIGHT UPDATES FROM STAFF & MED, LAB, IMAGING UPDATES -discomfort with NG tube most distressing to her. miserable. -blood pressure 152/78. Pulse 68. Respirations 16. Afebrile. 92% on room air. -CBC is unremarkable this morning. Stable. -Chemistries all stable. Electrolytes normal. Renal function normal. -passing stool (last was 2200 05/12) -brown liquid in NG tube -4mg of morphine prn pharynx discomfort from NG, not abdominal pain. -on D5NS with potassium -reviewed home meds; all supplements. all on hold 2/2 NG. RN: Pt Alert and oriented x3. Afebrile. Pt reports 10/10 back of throat and sinus soreness and achy pain, pain managed with PRN medications. Assembly Line Brazer used tongue depressor and looked in back of throat which was pink and moist and NG tube intact. Pt's NG tube is patent and draining brown liquid. Pt walked x2 in halls. Pt tolerating NPO diet. Pt slept intermittently throughout night. CT from admission: Multiple dilated loops of ileum with dilation of the cecum and proximal ascending colon, which may represent ileus versus partial bowel obstruction. There is circumferential wall thickening and mild pericolonic inflammatory stranding with prominent lymph nodes involving the distal ascending colon, which may represent colitis; however, an underlying lesion is not excluded. Recommend direct visualization when clinically appropriate. Objective: pleasant; noticeable discomfort from NG tube. Vitals: see above Lungs: Clear. Cardiac: S1S2. Abdomen: soft. good bowel sounds. Disposition/Potential discharge - Likely to return to previous living situation. Today I spent 50minutes seeing the patient, reviewing Expanse and EPIC notes/diagnostics, discussing the care plan with our care time that includes social work, PT/OT, pharmacy, RT, penitentiary and documenting my impressions and plan in the medical record. Exam Const: Vital Signs, click to edit/add: Vital Signs - 24 hr 05/12/23 11:00 05/12/23 15:00 05/12/23 15:00 Temperature 97.3 F L Pulse Rate [Left P ulse Oximeter] 75 68 Respiratory Rate 16 16 16 Blood Pressure [Le ft Arm] 116/65 Pulse Oximetry 96 97 Oxygen Delivery Me thod Room Air Room Air 05/12/23 15:00 05/12/23 21:15 05/12/23 23:00 Temperature 97.4 F L 97.9 F Pulse Rate [Left P ulse Oximeter] 68 72 72 Respiratory Rate 16 16 16 Blood Pressure [Le ft Arm] 153/71 H 129/80 Pulse Oximetry 97 93 Oxygen Delivery Me thod Room Air Room Air 05/12/23 23:00 05/13/23 04:30 05/13/23 07:30 Temperature 97.6 F Pulse Rate [Left P ulse Oximeter] 75 68 Respiratory Rate 16 16 16 Blood Pressure [Le ft Arm] 151/76 H Pulse Oximetry 93 97 Oxygen Delivery Ak thod Room Air Room Air 05/13/23 07:30 05/13/23 07:40 Temperature 98.2 F Pulse Rate [Left P ulse Oximeter] 68 Respiratory Rate 16 16 Blood Pressure [Le ft Arm] 152/78 H Pulse Oximetry 92 92 Oxygen Delivery Me thod Room Air Room Air Labs Labs: Laboratory Results - last 24 hr 05/12/23 05/12/23 05/13/23 05:33 13:02 05:32 WBC 5.77 RBC 4.32 Hgb 13.1 Hct 39.3 MCV 91 MCH 30 MCHC 33 Plt Count 209 Sodium 142 Potassium 3.9 Chloride 106 Carbon Dioxide 27 Anion Gap 9 BUN 6 L Creatinine 0.4 L Estimated Creat Clear 37.01 Estimated GFR 97 Glucose 104 Calcium 9.3 C-Reactive Protein 2.2 H Free T4 1.32 Lab Acknowledgement Test Added
[2023-05-13] MEDS: BENZOCAINE/MENTHOL 1 EACH LOZENGE MUCOUS MEM (08:53)
[2023-05-13] MEDS: KETOROLAC 15 MG/ML inj IVP (11:35)
[2023-05-13] MEDS: MORPHINE 10 MG/0.5 ML ORAL SOLN PO ×3 (12:58→21:03)
--- NOTE | 2023-05-13 15:40 | PC.NURSE ---
End of shift nursing note, care provided from [id number]: Pt alert and oriented, pleasant. Very soft spoken this AM d/t c/o pain to throat, exacerbated when swallowing. Denies pain to abd. PRN Morphine IV admin this AM, along with throat spray and lozenge. Per pt report ice chips greatly improved pt?s throat pain as well. New orders for PO Morphine and PRN IV Toradol, both admin this afternoon, pt denies pain this afternoon, appearing much more comfortable then this AM. Tolerating small sips and ice chips. Up w/ SBA & gb to bathroom d/t dizziness r/t PRN Morphine, but improving, voiding without issue, no BM this shift. Vitals stable, on RA. NG output remains brown liquid, 100ml output total for 8hr shift. BG 118 this afternoon, continues on D5 NS at 100ml/hr to patient L forearm. Call light within reach and pt uses appropriately.??
--- NOTE | 2023-05-13 17:30 | PM.GSPN ---
Subjective Subjective Date Seen: 05/13/23 Interval history: Rolanda is doing well. NG output still brown/red. No BM today. Yesterday had a small firm BM. Denies abdominal pain. Had a nice birthday. Her throat hasn't been bothering her today since she has been getting benzocaine and po morphine. She has been walking a fair amount in the hallways with her children. Exam Narrative: Exam Narrative: General: NAD HEENT: NG with reddish brown output - unchanged CV: RRR resp: breathing nonlabored abdomen: soft. nontender. Mild distension. Improved overall. Const: Vital Signs, click to edit/add: Vital Signs - 24 hr 05/12/23 21:15 05/12/23 23:00 05/12/23 23:00 Temperature 97.9 F Pulse Rate [Left P ulse Oximeter] 72 72 Respiratory Rate 16 16 16 Blood Pressure [Le ft Arm] 129/80 Pulse Oximetry 93 93 Oxygen Delivery Me thod Room Air Room Air 05/13/23 04:30 05/13/23 07:30 05/13/23 07:30 Temperature 97.6 F Pulse Rate [Left P ulse Oximeter] 75 68 Respiratory Rate 16 16 16 Blood Pressure [Le ft Arm] 151/76 H Pulse Oximetry 97 92 Oxygen Delivery Me thod Room Air Room Air 05/13/23 07:40 05/13/23 11:10 05/13/23 15:59 Temperature 98.2 F 97.8 F Pulse Rate [Left P ulse Oximeter] 68 62 Respiratory Rate 16 16 16 Blood Pressure [Le ft Arm] 152/78 H 138/74 Pulse Oximetry 92 96 96 Oxygen Delivery Or thod Room Air Room Air Room Air 05/13/23 15:59 Temperature 98 F Pulse Rate [Left P ulse Oximeter] 61 Respiratory Rate 16 Blood Pressure [Le ft Arm] 128/58 L Pulse Oximetry 96 Oxygen Delivery Me thod Room Air Labs/Imaging Labs Labs: WBC normal. CRP stable Progress Note: A&P Assessment and plan (1) Colon obstruction: Problem details: - CT scan of abdomen and pelvis on 05/11/2023 reviewed. D/W with gen surg. plan is to prep with enemas on am 05/14. No PO prep. GGE and scope am of 05/14. - Differential diagnosis includes colonic neoplasm, inflammation, ischemia, stricture. Doubt active infection. - NG tube continues at low, intermittent suctioning for decompression. NPO. IV fluids. IV analgesics and antiemetics p.r.n. Status: Acute Plan The patient is an 83-year-old female with a colon obstruction, possibly secondary to malignancy though no obvious mass seen on CT scan. Differential includes focal colitis. CBC remains normal. CRP is stable. Patient is not on antibiotics. She had been having a small amount of bowel movements of this has stopped today. Continue NG tube. She may have sips for comfort for her throat Will plan on Fleet enemas x2 starting at 5 and 7:00 a.m. and then at 9:00 a.m. she will have a Gastrografin enema. Following this, she will go for colonoscopy to further evaluate the area and biopsy as well as look for other lesions in the distal colon. We will see if we can expedite pathology on this. Will then make a definitive treatment plan once these results are back. She will need CEA and CT chest if the lesion does come back malignant Okay to give prophylactic Lovenox this evening. May need to hold it tomorrow after colonoscopy since biopsies will likely be taken.
--- NOTE | 2023-05-13 18:07 | PC.NURSE ---
Shift Summary: Patient pleasant and cooperative. Up with SBA. NG to low intermittent. Rated pain 5/10 at start of shift, given PRN medication see OCT, when reassessed stated its not painful my throat is just a little scratchy. Vitals stable and WNL. Denies nausea, states she's still passing gas today, bowel sounds active.
[2023-05-13] MEDS: ENOXAPARIN 40 MG/0.4 ML INJ SUBCUT (21:02)
[2023-05-14] MEDS: 5 % DEXTROSE/0.9% SOD CHLORIDE 1,000 ML 100 ML IV ×2 (00:10→14:05)
[2023-05-14] MEDS: phenoL 1.4 % THROAT SPRAY 1 SPRAY MUCOUS MEM ×5 (00:10→14:05)
[2023-05-14] MEDS: MORPHINE 10 MG/0.5 ML ORAL SOLN PO ×2 (00:19→02:55)
[2023-05-14 03:00] VITALS: BP 154/74; PULSE 63; RESP 16; TEMP 37; O2SAT 93
[2023-05-14 06:22] LABS: Hematocrit 35.4 % (33.0-51.0); Mean Corpuscular HGB Conc 34 gm/dL (32-36); Mean Corpuscular Hemoglobin 31 pg (26-34); Mean Corpuscular Volume 90 fL (80-100); Platelet Count* 187 K/uL (140-440); Red Blood Count 3.94 m/uL (4.00-5.20); White Blood Count* 5.86 K/uL (4.50-11.00)
[2023-05-14 06:32] LABS: Chloride* 108 mmol/L (96-114); Potassium* 3.8 mmol/L (3.6-5.1); Sodium* 141 mmol/L (135-149)
[2023-05-14 06:35] LABS: Anion Gap 6 mEq/L (7-15); Blood Urea Nitrogen* 3 mg/dL (7-30); Calcium* 9.4 mg/dL (8.4-10.6); Carbon Dioxide* 27 mmol/L (20-32); Creatinine* 0.5 mg/dL (0.5-1.5); Est. Creatinine Clearance* 37.01; Estimated Glomerular Filt Rate 92 ml/min; Glucose* 94 mg/dL (60-115)
[2023-05-14 06:45] LABS: Slide Review Reflex No
[2023-05-14 07:47] VITALS: BP 146/75; PULSE 63; RESP 16; TEMP 36.9; O2SAT 97
--- NOTE | 2023-05-14 08:06 | PC.NURSE ---
Shift note [id number]: Pt is alert and oriented x3. Afebrile. Pt reports 10/10 dull and achy ?soreness??in back of throat and neck, pain managed with PRN medications. Pt denies SOB, chest pain and N/V. Car Worker Helper gave pt 2 enemas one at 0500 and the second at 0700, pt tolerated well and had x1 BM that was 200ml output, clear/yellow with stool particles. Pt had a 2nd BM around 0600 that was 400 ml liquid clear/yellow with 3 small formed stools. After giving pt the 2nd enema at 0700 pt had a bowel movement within 10 minutes that was 300 ml and was liquid brown.?Pt is up SBA with?IV pole to bathroom, and slept throughout most of night. ?
[2023-05-14 08:33] VITALS: RESP 16; O2SAT 97
--- NOTE | 2023-05-14 09:15 | CRLHL7_ITS ---
For Patients: As a result of the Century Cures Act, medical imaging exams and procedure reports are released immediately into your electronic medical record. You may view this report before your referring provider. If you have questions, please contact your health care provider. Technique: Single contrast water soluble enema examination performed. Fluoroscopy time 1 minute 43 seconds. Indication: COLONIC OBSTRUCTION Comparison: CT 05/11/2023 Findings: High-grade obstruction at the hepatic flexure within line of contrast extending through the mass into the right colon. Mild residual stool present. No perforation. 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 Dictated by Mark Najera MD @ 05/14/2023 9:55:07 AM (Electronically Signed)
--- NOTE | 2023-05-14 10:16 | PM.GSPN ---
Subjective Subjective Date Seen: 05/14/23 Interval history: Rolanda has been stable overnight. Continues to deny abdominal pain. Exam Narrative: Exam Narrative: NG in place with reddish-brown drainage. Abdomen: Mildly distended. Nontender. Const: Vital Signs, click to edit/add: Vital Signs - 24 hr 05/13/23 11:10 05/13/23 15:59 05/13/23 15:59 Temperature 97.8 F 98 F Pulse Rate [Left P ulse Oximeter] 62 61 Respiratory Rate 16 16 16 Blood Pressure [Le ft Arm] 138/74 128/58 L Blood Pressure [Ri ght Arm] Pulse Oximetry 96 96 96 Oxygen Delivery Me thod Room Air Room Air Room Air 05/13/23 19:45 05/13/23 22:15 05/13/23 22:15 Temperature 98.0 F Pulse Rate [Left P ulse Oximeter] 60 60 Respiratory Rate 16 16 16 Blood Pressure [Le ft Arm] 146/71 H Blood Pressure [Ri ght Arm] Pulse Oximetry 98 98 Oxygen Delivery Me thod Room Air Room Air 05/13/23 23:20 05/14/23 03:00 05/14/23 07:47 Temperature 97.6 F 98.6 F 98.4 F Pulse Rate [Left P ulse Oximeter] 96 63 63 Respiratory Rate 16 16 16 Blood Pressure [Le ft Arm] 142/64 H 154/74 H Blood Pressure [Ri ght Arm] 146/75 H Pulse Oximetry 94 93 97 Oxygen Delivery Me thod Room Air Room Air Room Air 05/14/23 08:33 Temperature Pulse Rate [Left P ulse Oximeter] Respiratory Rate 16 Blood Pressure [Le ft Arm] Blood Pressure [Ri ght Arm] Pulse Oximetry 97 Oxygen Delivery Me thod Room Air Labs/Imaging Labs Labs: White blood cell count remains normal. Imaging Imaging: Gastrografin enema showing stricture with apple core lesion ascending colon/hepatic flexure. Progress Note: A&P Assessment and plan (1) Colon obstruction: Problem details: - Differential diagnosis includes colonic neoplasm, inflammation, ischemia, stricture. Doubt active infection. - General Sugery following - 05/14: Gastrografin, scope - 05/14: Per General Surgery -- right colonic obstruction with Gastrografin enema demonstrating a lesion just proximal to the hepatic flexure. This appears to be an apple-core lesion. 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 Colonoscopy confirmed this along with two additional large polyps. Pathology results pending -CT chest and CEA ordered by Gen Surg -NG tube continues at low, intermittent suction for decompression - continue until surgery, planned for 05/16 -may have sips of coffee/popsicle Sunday-Sunday -IV analgesics and antiemetics prn -cont lovenox for prophylaxis. Status: Acute Plan The patient is an 83-year-old female with right colonic obstruction with Gastrografin enema demonstrating a lesion just proximal to the hepatic flexure. This appears to be an apple-core lesion. 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 Colonoscopy confirmed this along with two additional large polyps. I discussed the findings with the patient and her family. We also discussed surgery, including risks, benefits and recovery. -have asked for pathology results stat so available tomorrow. -CT chest and CEA ordered -continue NG until surgery - scheduled for Sunday. -Patient may have sips of coffee/popsicle today/tomorrow -cont lovenox for prophylaxis.
--- NOTE | 2023-05-14 10:40 | PC.NURSE ---
PATIENT BEING TRANSPORTED TO HAVE COLONOSCOPY PROCEDURE AT THIS TIME.
--- NOTE | 2023-05-14 11:28 | W.ANESCHARGE ---
Anesthesia Charges Start Date/Time Anesthesia Start Date: 05/14/23 Anesthesia Start Time: 12:05 Stop Date/Time Anesthesia Stop Date: 05/14/23 Anesthesia Stop Time: 13:08 Summary Extremes of Age - Over 70 or under 1: MDA
--- NOTE | 2023-05-14 13:05 | CRLHL7_ITS ---
For Patients: As a result of the Century Cures Act, medical imaging exams and procedure reports are released immediately into your electronic medical record. You may view this report before your referring provider. If you have questions, please contact your health care provider. INDICATION: .RECENT DIAGNOSIS OF COLON CANCER, CHECKING FOR METS TO CHEST TECHNIQUE: CT chest was acquired with 75 cc Isovue 370 IV contrast. COMPARISON: None. FINDINGS: Lungs and Airways: 3 millimeter left apical subpleural indeterminate pulmonary nodule, likely intrapulmonary lymphoid tissue. Axial image 19. A few additional scattered sub-6 millimeter indeterminate pulmonary nodules also predominantly abutting the fissures and likely reflecting intrapulmonary lymphoid tissue. No mass or consolidation. No endoluminal lesion. Heart and Mediastinum: The visualized portions of the thyroid are normal. No axillary or supraclavicular lymphadenopathy. No mediastinal, hilar or retrocrural lymphadenopathy. Normal heart size. Normal caliber aorta. Atherosclerotic calcifications. Pleura: The pleural spaces are normal. Abdomen: No acute process in the upper abdomen. Bones and soft tissues: The skeletal structures and soft tissues of the chest wall are unremarkable. Enteric tube extending off the field of view into the expected location of the gastric body. IMPRESSION: 1. No discrete metastatic disease within the chest. No intrathoracic mass or consolidation. 2. A few scattered sub-6 millimeter indeterminate pulmonary nodules. While these are favored to reflect intrapulmonary lymphoid tissue, recommend attention on follow-up exams per clinical protocol. Please note that all CT scans at this facility use dose modulation, iterative reconstruction, and/or weight-based dosing when appropriate to reduce radiation dose to as low as reasonably achievable. Dictated by Mark Rodgers MD @ 05/14/2023 4:16:28 PM (Electronically Signed)
--- NOTE | 2023-05-14 13:12 | P.ANES_ITS ---
Anesthesia Charges Start Date/Time Anesthesia Start Date: 05/14/23 Anesthesia Start Time: 12:05 Stop Date/Time Anesthesia Stop Date: 05/14/23 Anesthesia Stop Time: 13:08 Summary Extremes of Age - Over 70 or under 1: MAINFRAME APPLICATIONS DEVELOPER
--- NOTE | 2023-05-14 13:14 | PM.IMPN1 ---
Progress Note: A&P Assessment and plan (1) Colon obstruction: Problem details: - Differential diagnosis includes colonic neoplasm, inflammation, ischemia, stricture. Doubt active infection. - General Sugery following - 05/14: Gastrografin, scope - 05/14: Per General Surgery -- right colonic obstruction with Gastrografin enema demonstrating a lesion just proximal to the hepatic flexure. This appears to be an apple-core lesion. 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 Colonoscopy confirmed this along with two additional large polyps. Pathology results pending -CT chest and CEA ordered by Gen Surg -NG tube continues at low, intermittent suction for decompression - continue until surgery, planned for 05/16 -may have sips of coffee/popsicle Sunday-Sunday -IV analgesics and antiemetics prn -cont lovenox for prophylaxis. Status: Acute (2) Lesion of colon: Problem details: -new finding, management as above Status: Acute Plan Code: DNR/DNI VTE PPX: Lovenox Disposition: Inpatient. Planned surgery 05/16/23 Time Spent With Patient Total time spent: Today I spent 50minutes seeing the patient, reviewing Expanse and EPIC notes/diagnostics, discussing the care plan with our care time that includes social work, PT/OT, pharmacy, RT, residential and documenting my impressions and plan in the medical record Subjective Date Seen: 05/14/23 Interval history: Patient reports feeling good this morning, an improvement from yesterday. Ambulating. Having bowel movements following gastrografin challenge. Denies discomfort. Denies headache or dizziness. No chest pain or shortness of breath. Awaiting colonoscopy. No concerns or complaints this morning. No events reported overnight. Exam Narrative: Exam Narrative: PHYSICAL EXAM General: Lying in bed, very pleasant, conversant, NAD HEENT: Normocephalic, atraumatic, sclera white, EOMI, oral mucosa moist Cardiovascular: RRR, S1S2. No pitting edema Pulmonary: CTA bilaterally without rhonchi, rales, expiratory wheezes. No dyspnea on NC Abdominal: Soft, mildly distended, minimal discomfort Neurological: Alert, answering questions appropriately, cranial nerves intact, no focal findings Extremities: No gross joint deformity or swelling. AROMI. Neurovascularly intact Skin: Warm, dry. Const: Vital Signs, click to edit/add: Vital Signs - 24 hr 05/13/23 15:59 05/13/23 15:59 05/13/23 19:45 Temperature 98 F 98.0 F Pulse Rate [Left P ulse Oximeter] 61 60 Respiratory Rate 16 16 16 Blood Pressure [Le ft Arm] 128/58 L 146/71 H Blood Pressure [Ri ght Arm] Pulse Oximetry 96 96 98 Oxygen Delivery Me thod Room Air Room Air Room Air 05/13/23 22:15 05/13/23 22:15 05/13/23 23:20 Temperature 97.6 F Pulse Rate [Left P ulse Oximeter] 60 96 Respiratory Rate 16 16 16 Blood Pressure [Le ft Arm] 142/64 H Blood Pressure [Ri ght Arm] Pulse Oximetry 98 94 Oxygen Delivery Me thod Room Air Room Air 05/14/23 03:00 05/14/23 07:47 05/14/23 08:33 Temperature 98.6 F 98.4 F Pulse Rate [Left P ulse Oximeter] 63 63 Respiratory Rate 16 16 16 Blood Pressure [Le ft Arm] 154/74 H Blood Pressure [Ri ght Arm] 146/75 H Pulse Oximetry 93 97 97 Oxygen Delivery Me thod Room Air Room Air Room Air Labs Labs: Laboratory Results - last 24 hr 05/14/23 05:50 WBC 5.86 RBC 3.94 L Hgb 12.0 Hct 35.4 MCV 90 MCH 31 MCHC 34 Plt Count 187 Sodium 141 Potassium 3.8 Chloride 108 Carbon Dioxide 27 Anion Gap 6 L BUN 3 L Creatinine 0.5 Estimated Creat Clear 37.01 Estimated GFR 92 Glucose 94 Calcium 9.4
--- NOTE | 2023-05-14 15:19 | PC.NURSE ---
SHIFT NOTE: PATIENT HAS BEEN AMBULATING WITH SBA WITH STAFF AND USE OF IV POLE INCLUDING AMBULATING IN HALLWAY. NO C/O PAIN THOUGH PATIENT CONTINUES TO HAVE THROAT DISCOMFORT MANAGED WITH ICE CHIPS AND PRN MEDICATED SPRAY. LUNG SOUNDS NOTED TO BE CLEAR TO ALL LOBES BILATERALLY AND BOWEL SOUNDS HAVE BEEN ACTIVE IN ALL FOUR QUADRANTS. PATIENT HAS HAD TWO LIQUID INCONTINENT STOOLS MEASURING A TOTAL STOOL OUTPUT OF 600 ML THIS SHIFT. SHE HAS ALSO BEEN VOIDING ON TOILET AND HAS HAD 325 ML OUTPUT VIA NG TUBE THIS SHIFT. PATIENT HAD COLONOSCOPY PROCEDURE THIS MORNING- LEFT UNIT AT 1040 AND RETURNED AT 1400. SHE IS ALSO HAVING A CT SCAN THIS AFTERNOON. FAMILY AND PATIENT AWARE. NO N/V NOTED OR REPORTED THIS SHIFT.
[2023-05-14 16:00] VITALS: BP 153/74; PULSE 72; RESP 18; TEMP 36.8; O2SAT 97
[2023-05-14] MEDS: MORPHINE 4 MG/ML INJ IVP (18:21)
[2023-05-14 19:00] VITALS: BP 144/72; PULSE 65; RESP 18; TEMP 37; O2SAT 96
--- NOTE | 2023-05-14 19:57 | PC.NURSE ---
Pt pleasant and cooperative. NG on LIS, output reducing as day progresses. Up independently, walking in dooley. See MAR for medication administration for throat and neck pain. Family has remained assistive at bedside entire shift.
[2023-05-14] MEDS: BENZOCAINE/MENTHOL 1 EACH LOZENGE MUCOUS MEM (20:18)
[2023-05-14] MEDS: ENOXAPARIN 40 MG/0.4 ML INJ SUBCUT (20:19)
[2023-05-14 23:00] VITALS: O2SAT 99
[2023-05-15] VITALS (7 sets, daily range): BP systolic 118–166; BP diastolic 65–84; PULSE 65–76; RESP 16–20; TEMP 36.4–37.5; O2SAT 93–99
[2023-05-15] MEDS: 5 % DEXTROSE/0.9% SOD CHLORIDE 1,000 ML 100 ML IV ×3 (00:45→15:04)
[2023-05-15] MEDS: phenoL 1.4 % THROAT SPRAY 1 SPRAY MUCOUS MEM ×4 (00:58→21:24)
[2023-05-15] MEDS: KETOROLAC 15 MG/ML inj IVP (01:06)
[2023-05-15] MEDS: BENZOCAINE/MENTHOL 1 EACH LOZENGE MUCOUS MEM ×2 (01:06→07:33)
--- NOTE | 2023-05-15 07:04 | PC.NURSE ---
[id number] Patient, pleasant and cooperative. SBA to assist with IV pole and suction. Pts DTR at bedside throughout shift.?NG Total Output this shift 250cc. NG flushed with 50cc to ensure patency (this is already subtracted from NG output). Bowel tones active. C/o throat pain, prn throat lozenges and spray utilized for pain mgmt. VSS. No insulin needed per sliding scale parameter. Patient attempted to have a BM late this shift, but reported it was only a little air.?
[2023-05-15 07:11] LABS: Hematocrit 35.9 % (33.0-51.0); Hemoglobin* 12.3 gm/dL (12.0-16.0); Mean Corpuscular HGB Conc 34 gm/dL (32-36); Mean Corpuscular Hemoglobin 30 pg (26-34); Mean Corpuscular Volume 88 fL (80-100); Platelet Count* 206 K/uL (140-440); Red Blood Count 4.07 m/uL (4.00-5.20); White Blood Count* 5.87 K/uL (4.50-11.00)
[2023-05-15 07:12] LABS: Slide Review Reflex No
[2023-05-15 07:24] LABS: Chloride* 105 mmol/L (96-114); Potassium* 3.1 mmol/L (3.6-5.1); Sodium* 140 mmol/L (135-149)
[2023-05-15 07:27] LABS: Anion Gap 5 mEq/L (7-15); Blood Urea Nitrogen* 3 mg/dL (7-30); Calcium* 9.2 mg/dL (8.4-10.6); Carbon Dioxide* 30 mmol/L (20-32); Creatinine* 0.5 mg/dL (0.5-1.5); Est. Creatinine Clearance* 37.01; Estimated Glomerular Filt Rate 92 ml/min; Glucose* 110 mg/dL (60-115)
[2023-05-15] MEDS: MORPHINE 10 MG/0.5 ML ORAL SOLN PO (08:20)
[2023-05-15] MEDS: MORPHINE 4 MG/ML INJ IVP ×4 (08:31→23:17)
[2023-05-15] MEDS: POTASSIUM CHLORIDE 10 MEQ CAPSULE ER 20 MEQ PO (09:15)
--- NOTE | 2023-05-15 09:46 | PM.GSPN ---
Subjective Subjective Date Seen: 05/15/23 Interval history: As mentioned, yesterday Ly mejía was found to have an obstructing tumor with 2 large polyps noted in the remainder of her colon. We are planning on surgery tomorrow. Staging CT did not show any metastatic disease in her chest. CEA is pending. Exam Narrative: Exam Narrative: General: No acute distress HEENT: NG output is up however she was allowed to liberalize her p.o. intake for comfort yesterday. output evaluated closely as it remains dark. it appears to be bile. CV: Regular rate Pulmonary: Breathing nonlabored on room air Abdomen: Soft. Remains mildly distended. Nontender. Const: Vital Signs, click to edit/add: Vital Signs - 24 hr 05/14/23 16:00 05/14/23 16:00 05/14/23 19:00 Temperature 98.3 F 98.6 F Pulse Rate [Left P ulse Oximeter] 72 65 Respiratory Rate 18 18 18 Blood Pressure [Le ft Arm] 153/74 H Blood Pressure [Ri ght Arm] 144/72 H Pulse Oximetry 97 97 96 Oxygen Delivery Me thod Room Air Room Air Room Air 05/14/23 23:00 05/15/23 00:50 05/15/23 00:50 Temperature 97.7 F Pulse Rate [Left P ulse Oximeter] 65 71 Respiratory Rate 18 18 Blood Pressure [Le ft Arm] Blood Pressure [Ri ght Arm] 157/79 H Pulse Oximetry 99 99 Oxygen Delivery Me thod Room Air Room Air 05/15/23 03:00 Temperature 98.9 F Pulse Rate [Left P ulse Oximeter] 75 Respiratory Rate 20 Blood Pressure [Le ft Arm] Blood Pressure [Ri ght Arm] 138/65 Pulse Oximetry 93 Oxygen Delivery Me thod Progress Note: A&P Assessment and plan (1) Lesion of colon: Problem details: -new finding, management as above Status: Acute (2) Bowel obstruction: Status: Acute Plan The patient is an 83-year-old female with a likely malignant colon obstruction. Planning on hemicolectomy tomorrow. Staging has been complete. Polyps that were removed wre benign. The mass also came back as a benign adenoma, however, this is likely secondary to where it was sampled. We will await final pathology to ensure that the large polyps were benign. This should be back later today. I have discussed the risks and benefits of surgery with the patient as well as recovery. She has asked excellent questions and again we will plan on surgery tomorrow. She should be NPO at midnight. Until then she can continue with sips of coffee, popsicles, etc. for comfort. patient and family updated today. -okay to continue Lovenox -I have added a PPI given output has persistently been brownish red though hemoglobin has been stable and I believe it to be bile - will d/c after NG out. -no need for any further bowel prep. -will remove NG after surgery tomorrow.
[2023-05-15] MEDS: PANTOPRAZOLE SODIUM 40 MG INJ IVP (11:15)
[2023-05-15] MEDS: SODIUM CHLORIDE 0.9 % (FLUSH) 10 ML SYRINGE 5 ML IVF (13:49)
--- NOTE | 2023-05-15 15:26 | PM.IMPN1 ---
Progress Note: A&P Assessment and plan (1) Colon obstruction: Problem details: - Differential diagnosis includes colonic neoplasm, inflammation, ischemia, stricture. Doubt active infection. - General Sugery following - 05/14: Gastrografin, scope - 05/14: Per General Surgery -- right colonic obstruction with Gastrografin enema demonstrating a lesion just proximal to the hepatic flexure. This appears to be an apple-core lesion. 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 Colonoscopy confirmed this along with two additional large polyps. Pathology results pending -CT chest and CEA ordered by Gen Surg. CT chest shows no discrete metastatic disease within the chest. No intrathoracic mass or consolidation. A few scattered sub-6 millimeter indeterminate pulmonary nodules. While these are favored to reflect intrapulmonary lymphoid tissue, recommend attention on follow-up exams per clinical protocol. -NG tube continues at low, intermittent suction for decompression - continue until surgery, planned for 05/16 -may have sips of coffee/popsicle. NPO midnight tonight -IV analgesics and antiemetics prn. PPI started, switched to IV per patient request, not tolerating oral PPI -okay to cont lovenox for prophylaxis preoperatively per general surgery Status: Acute (2) Lesion of colon: Problem details: -new finding, management as above Status: Acute (3) Pulmonary nodule: Problem details: - CT scan from admission: Right lower lobe pulmonary nodule measuring 4 mm. Given that she is at increased risk for lung cancer, consider repeat chest CT in 12 months according to Fleischner Society recommendations. Status: Acute (4) Hypokalemia: Problem details: -mild, potassium 3.1, in setting of NPO -replace with 2 doses oral potassium bicarbonate, recheck in a.m. Status: Acute Plan -to OR 05/16/[address] Gamboa Time Spent With Patient Total time spent: Total time spent caring for the patient today was 45 minutes. This includes time spent for the visit reviewing the chart, time spent during the visit, time spent after the visit and documentation and planning in coordination of care. Subjective Date Seen: 05/15/23 Interval history: Patient reports feeling ?pretty good? this morning. Pain and abdominal discomfort have for the most part resolved. Stool output has decreased. Tolerating small amounts of limited clears without nausea, vomiting. No events reported overnight. To OR on 05/16/[address] Gamboa. Exam Narrative: Exam Narrative: PHYSICAL EXAM General: Pleasant, conversant, NAD HEENT: Normocephalic, atraumatic, sclera white, EOMI, oral mucosa moist Cardiovascular: RRR, S1S2. No pitting edema Pulmonary: CTA bilaterally without rhonchi, rales, expiratory wheezes. No dyspnea Abdominal: Softer, less distended. Nontender. Neurological: Alert, answering questions appropriately, cranial nerves intact, no focal findings Extremities: No gross joint deformity or swelling. AROMI. Neurovascularly intact Skin: Warm, dry. Const: Vital Signs, click to edit/add: Vital Signs - 24 hr 05/14/23 16:00 05/14/23 16:00 05/14/23 19:00 Temperature 98.3 F 98.6 F Pulse Rate [Left P ulse Oximeter] 72 65 Respiratory Rate 18 18 18 Blood Pressure [Le ft Arm] 153/74 H Blood Pressure [Ri ght Arm] 144/72 H Pulse Oximetry 97 97 96 Oxygen Delivery Me thod Room Air Room Air Room Air 05/14/23 23:00 05/15/23 00:50 05/15/23 00:50 Temperature 97.7 F Pulse Rate [Left P ulse Oximeter] 65 71 Respiratory Rate 18 18 Blood Pressure [Le ft Arm] Blood Pressure [Ri ght Arm] 157/79 H Pulse Oximetry 99 99 Oxygen Delivery Me thod Room Air Room Air 05/15/23 03:00 05/15/23 07:45 05/15/23 07:45 Temperature 98.9 F 99.5 F Pulse Rate [Left P ulse Oximeter] 75 75 Respiratory Rate 20 18 Blood Pressure [Le ft Arm] Blood Pressure [Ri ght Arm] 138/65 139/69 Pulse Oximetry 93 96 96 Oxygen Delivery Me thod Room Air 05/15/23 11:10 Temperature 97.9 F Pulse Rate [Left P ulse Oximeter] 68 Respiratory Rate 18 Blood Pressure [Le ft Arm] Blood Pressure [Ri ght Arm] 118/73 Pulse Oximetry 96 Oxygen Delivery Me thod Room Air Labs Labs: Laboratory Results - last 24 hr 05/15/23 06:07 WBC 5.87 RBC 4.07 Hgb 12.3 Hct 35.9 MCV 88 MCH 30 MCHC 34 Plt Count 206 Sodium 140 Potassium 3.1 L Chloride 105 Carbon Dioxide 30 Anion Gap 5 L BUN 3 L Creatinine 0.5 Estimated Creat Clear 37.01 Estimated GFR 92 Glucose 110 Calcium 9.2
--- NOTE | 2023-05-15 15:42 | PC.NURSE ---
BG 133 at bkfst and 137 at lunch, no SS insulin required. Please see eMar for medications provided to this patient. Extensive family support. 100 cc of dark reddish brown drainage from patent NG @ 60 cm. Report given to oncabdullahi nevarez RN.
[2023-05-15 19:10] LABS: Free T3 1.6 pg/mL (2.5-4.3)
[2023-05-15] MEDS: POTASSIUM CHLORIDE 10 MEQ CAPSULE ER 50 MEQ PO (19:23)
[2023-05-15] MEDS: ENOXAPARIN 40 MG/0.4 ML INJ SUBCUT (21:24)
--- NOTE | 2023-05-15 22:52 | PC.NURSE ---
Addendum entered by Daphne Johnson RN 05/15/23 23:32: NG tube placement found to have been at 53cm, MD notified. Tube advanced to 60cm as previously inserted. No repeat imaging needed at this time per MD. Original Note: Pt alert and oriented, pleasant and cooperative during shift. Pt ambulates independently in room and to bathroom. Ambulates in hallways with family. Pt tolerating NG tube well, reports pain in neck/throat that is managed with interventions in MAR. Improvement verbalized by patient. Family present at bedside, patient resting comfortably at end of shift.
[2023-05-16] VITALS (24 sets, daily range): BP systolic 127–187; BP diastolic 71–91; PULSE 64–88; RESP 16–20; TEMP 36.3–37.5; O2SAT 90–100
[2023-05-16] MEDS: 5 % DEXTROSE/0.9% SOD CHLORIDE 1,000 ML 100 ML IV (00:36)
[2023-05-16] MEDS: MORPHINE 4 MG/ML INJ IVP ×5 (00:52→19:02)
[2023-05-16] MEDS: SODIUM CHLORIDE 0.9 % (FLUSH) 10 ML SYRINGE 5 ML IVF ×4 (00:53→09:43)
[2023-05-16 06:40] LABS: Hematocrit 33.7 % (33.0-51.0); Hemoglobin* 11.4 gm/dL (12.0-16.0); Mean Corpuscular HGB Conc 34 gm/dL (32-36); Mean Corpuscular Hemoglobin 30 pg (26-34); Mean Corpuscular Volume 89 fL (80-100); Platelet Count* 198 K/uL (140-440); White Blood Count* 5.57 K/uL (4.50-11.00)
[2023-05-16 07:11] LABS: Chloride* 107 mmol/L (96-114); Sodium* 139 mmol/L (135-149)
[2023-05-16 07:14] LABS: Anion Gap 7 mEq/L (7-15); Carbon Dioxide* 25 mmol/L (20-32); Creatinine* 0.4 mg/dL (0.5-1.5); Est. Creatinine Clearance* 37.01; Estimated Glomerular Filt Rate 97 ml/min
[2023-05-16 07:15] LABS: Blood Urea Nitrogen* 2 mg/dL (7-30); Calcium* 8.9 mg/dL (8.4-10.6); Glucose* 121 mg/dL (60-115)
[2023-05-16 07:17] LABS: Slide Review Reflex No
--- NOTE | 2023-05-16 07:45 | PC.NURSE ---
Shift note [id number]: Pt is alert and oriented x3. Afebrile. Pt reports 10/10 dull and achy pain?in back of throat and neck, pain managed with PRN medications, and warm wash cloth. Pt?s NG tube is at ?60? cm and is patent and draining. Drainage from NG is brown.?Pt denies SOB, chest pain and N/V. Pt is up SBA with?IV pole to bathroom, and slept throughout most of night. ?
[2023-05-16 07:47] LABS: INR 1.19 (0.91-1.10); Prothrombin Time 15.8 Seconds
[2023-05-16] MEDS: PANTOPRAZOLE SODIUM 40 MG INJ IVP (09:42)
[2023-05-16] MEDS: POTASSIUM CHLORIDE 10 MEQ/100 ML PIGGYBACK 100 MEQ IVPB ×5 (09:44→22:05)
--- NOTE | 2023-05-16 11:17 | PM.GSPN ---
Subjective Subjective Date Seen: 05/16/23 Interval history: Patient had nausea with Oral potassium. Now being replace IV. She denies abd pain. Exam Narrative: Exam Narrative: General: NAD HEENT: NG in place with dark, bilious output Abdomen: Mildly distended. Non-tender Const: Vital Signs, click to edit/add: Vital Signs - 24 hr 05/15/23 15:00 05/15/23 15:00 05/15/23 19:00 Temperature 97.8 F 97.5 F L Pulse Rate [Left P ulse Oximeter] 74 76 Respiratory Rate 18 16 Blood Pressure [Le ft Arm] Blood Pressure [Ri ght Arm] 166/84 H 153/76 H Pulse Oximetry 97 97 95 Oxygen Delivery Me thod Room Air Room Air Room Air 05/15/23 23:02 05/15/23 23:02 05/15/23 23:02 Temperature 98.4 F Pulse Rate [Left P ulse Oximeter] 74 74 Respiratory Rate 18 18 18 Blood Pressure [Le ft Arm] 139/67 Blood Pressure [Ri ght Arm] Pulse Oximetry 94 94 Oxygen Delivery Me thod Room Air Room Air 05/16/23 03:20 Temperature 98.3 F Pulse Rate [Left P ulse Oximeter] 65 Respiratory Rate 18 Blood Pressure [Le ft Arm] 127/71 Blood Pressure [Ri ght Arm] Pulse Oximetry 91 Oxygen Delivery Me thod Room Air Labs/Imaging Labs Labs: Hgb 11.4 WBC normal K+3.0 Progress Note: A&P Assessment and plan (1) Lesion of colon: Problem details: -new finding, management as above Status: Acute (2) Bowel obstruction: Status: Acute (3) Hypokalemia: Problem details: -mild, potassium 3.1, in setting of NPO -replace with 2 doses oral potassium bicarbonate, recheck in a.m. Status: Acute Plan Patient is an 83-year-old female with a bowel obstruction secondary to obstructing mass in the ascending colon just proximal to the hepatic flexure. Planning on hemicolectomy today. Patient did sign informed consent yesterday. I have updated the family on the plan. As soon as the OR is available we are planning to proceed. Suspect low potassium is from IV fluids/NPO status/NG tube and diarrhea with colon prep; will continue to check and replace intraoperatively
--- NOTE | 2023-05-16 12:02 | P.NB_ITS ---
Nerve Block Nerve Block Time Seen by Provider: 12:32 Date Seen: 05/16/23 Type of block requested by surgeon for post-operative analgesia: TAP Side: bilateral Time out performed: Yes Verification of patient name: Yes Verification of date of : Yes Site marking: site marked Name of person performing procedure: Parker Continuous monitoring Was continuous monitoring of O2 sat, B/P, school office assistant, recorded every 15 minutes?: Yes Procedure Checklist: sterile prep, needles and gloves Ultrasound guided. Images saved: Yes Medications given in 5ml increments after negative aspiration: Marcaine %: 0.25 mL: 30 Needle gauge: 20 and Exparel mL: 10 Patient tolerated procedure well: Yes Additional comments: Needle noted adjacent to nerve Block Charges Block Charge (with Pro Fee): TAP Bilateral Use of Ultrasound Machine for Block: Yes- US Guidance/pain block
--- NOTE | 2023-05-16 12:24 | PM.IMPN1 ---
Progress Note: A&P Assessment and plan (1) Colon obstruction: Problem details: - Differential diagnosis includes colonic neoplasm, inflammation, ischemia, stricture. Doubt active infection. - General Sugery following - 05/14: Gastrografin, scope - 05/14: Per General Surgery -- right colonic obstruction with Gastrografin enema demonstrating a lesion just proximal to the hepatic flexure. This appears to be an apple-core lesion. 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 Colonoscopy confirmed this along with two additional large polyps. Pathology results pending -CT chest and CEA ordered by Gen Surg. CT chest shows no discrete metastatic disease within the chest. No intrathoracic mass or consolidation. A few scattered sub-6 millimeter indeterminate pulmonary nodules. While these are favored to reflect intrapulmonary lymphoid tissue, recommend attention on follow-up exams per clinical protocol. -NG tube continues at low, intermittent suction for decompression - continue until surgery, planned for 05/16 -may have sips of coffee/popsicle. NPO midnight tonight -IV analgesics and antiemetics prn. PPI started, switched to IV per patient request, not tolerating oral PPI -okay to cont lovenox for prophylaxis preoperatively per general surgery -05/16: to OR this morning. Dr. Gamboa addressed family questions. Status: Acute (2) Lesion of colon: Problem details: -new finding, pathology report reviewed, management as above Status: Acute (3) Hypokalemia: Problem details: -3.0, down from 3.1, unable to tolerate oral supplement yesterday -preoperatively, start IV potassium 10 mEq x3 bumps. Recheck potassium postoperatively, continue IV supplement, monitoring levels Status: Acute (4) Pulmonary nodule: Problem details: - CT scan from admission: Right lower lobe pulmonary nodule measuring 4 mm. Given that she is at increased risk for lung cancer, consider repeat chest CT in 12 months according to Fleischner Society recommendations. Status: Acute Plan To OR today. Post operative management. Discharge planning in collaboration with General Surgery Time Spent With Patient Total time spent: Total time spent caring for the patient today was 45 minutes. This includes time spent for the visit reviewing the chart, time spent during the visit, time spent after the visit and documentation and planning in coordination of care. Subjective Date Seen: 05/16/23 Interval history: Patient is seen with multiple family at bedside. Awaiting OR later this morning. Pain is currently adequately managed. Denies nausea. Strictly NPO. Continues with dark output from NGT. No events reported overnight. Unable to tolerate oral potassium supplement yesterday. Exam Narrative: Exam Narrative: PHYSICAL EXAM General: Pleasant, conversant, NAD HEENT: Normocephalic, atraumatic, sclera white, EOMI, oral mucosa moist Cardiovascular: RRR, S1S2. No pitting edema Pulmonary: CTA bilaterally without rhonchi, rales, expiratory wheezes. No dyspnea Abdominal: Soft, nondistended, no tenderness since morning. Continues with dark output from NG tube Neurological: Alert, answering questions appropriately, cranial nerves intact, no focal findings Extremities: No gross joint deformity or swelling. AROMI. Neurovascularly intact Skin: Warm, dry. Const: Vital Signs, click to edit/add: Vital Signs - 24 hr 05/15/23 15:00 05/15/23 15:00 05/15/23 19:00 Temperature 97.8 F 97.5 F L Pulse Rate [Left P ulse Oximeter] 74 76 Respiratory Rate 18 16 Blood Pressure [Le ft Arm] Blood Pressure [Ri ght Arm] 166/84 H 153/76 H Pulse Oximetry 97 97 95 Oxygen Delivery Me thod Room Air Room Air Room Air 05/15/23 23:02 05/15/23 23:02 05/15/23 23:02 Temperature 98.4 F Pulse Rate [Left P ulse Oximeter] 74 74 Respiratory Rate 18 18 18 Blood Pressure [Le ft Arm] 139/67 Blood Pressure [Ri ght Arm] Pulse Oximetry 94 94 Oxygen Delivery Me thod Room Air Room Air 05/16/23 03:20 Temperature 98.3 F Pulse Rate [Left P ulse Oximeter] 65 Respiratory Rate 18 Blood Pressure [Le ft Arm] 127/71 Blood Pressure [Ri ght Arm] Pulse Oximetry 91 Oxygen Delivery Me thod Room Air Labs Labs: Laboratory Results - last 24 hr 05/12/23 05/16/23 05:33 06:07 WBC 5.57 RBC 3.80 L Hgb 11.4 L Hct 33.7 MCV 89 MCH 30 MCHC 34 Plt Count 198 INR 1.19 H Sodium 139 Potassium 3.0 L Chloride 107 Carbon Dioxide 25 Anion Gap 7 BUN 2 L Creatinine 0.4 L Estimated Creat Clear 37.01 Estimated GFR 97 Glucose 121 H Calcium 8.9 Free T3 pg/dL 1.6 L
[2023-05-16] MEDS: ERTAPENEM 1 GM inj IVPB (12:31)
[2023-05-16] MEDS: LACTATED RINGERS 1000 ML 1,000 ML 125 ML IV (13:15)
--- NOTE | 2023-05-16 13:34 | W.ANESCHARGE ---
Anesthesia Charges Start Date/Time Anesthesia Start Date: 05/16/23 Anesthesia Start Time: 12:19 Stop Date/Time Anesthesia Stop Date: 05/16/23 Anesthesia Stop Time: 15:45 Summary Extremes of Age - Over 70 or under 1: MDA
--- NOTE | 2023-05-16 14:05 | PC.NURSE ---
Please see eMar for meds provided to this patient this am. Family present for surgical and anesthesia visit. Permits signed. SBAR and preop check list completed. Pt's IV was leaking and new one will be placed in surgery. She is receiving potassium bumps, 2nd bag up when taken to OR. Third bag will be managed by anesthesia and sent with patient. Family prayed over Rolanda prior to her transfer to surgery at 1218 pm.
--- NOTE | 2023-05-16 14:16 | SUR.OPER ---
Family call was placed and update given on procedure at approximately 1407
--- NOTE | 2023-05-16 14:18 | SUR.OPER ---
Converted to open procedure at approximately 1415
--- NOTE | 2023-05-16 14:59 | PC.NURSE ---
Pt remains in surgery, report provided to Daphne SANTA and Millie SANTA per protocol.
--- NOTE | 2023-05-16 15:10 | W.ANESCHARGE ---
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
--- NOTE | 2023-05-16 15:32 | P.GSOP_ITS ---
Operative Note Pre-op diagnosis: Obstructing ascending colon mass Post-op diagnosis: same Type of Procedure: Laparoscopic right hemicolectomy Indications: The patient is an 83-year-old female who presented with a history of constipation and abdominal pain. Workup revealed a likely obstructing colon lesion in the ascending colon/hepatic flexure causing dilatation of her small bowel as well. Patient she had an NG tube and her bowel was decompressed. She then underwent Gastrografin enema which showed an apple-core lesion. On the same day she underwent colonoscopy which showed a complete obstruction of her ascending colon just proximal to the hepatic flexure. Biopsy showed an adenoma, however because of the obstructing lesion is felt likely to be cancer. I recommended right hemicolectomy and after discussing risks of the procedure, the patient agreed to proceed. Procedure Description: After discussing the risks and benefits of the procedure, the patient signed informed consent.? The operative site was marked and the patient was brought to the operating room and placed on the operating table in supine position.? Care was taken to pad the patient's pressure points.?? The patient was then intubated by anesthesia.??A TAP block was then performed by the anesthesiologist to decreased intraoperative anesthetic needs. A Radford catheter was then placed. The operative site was then prepped and draped in the usual sterile fashion.? A time-out was then performed. Entrance the abdomen was gained via Visiport technique in the left upper quadrant. The layers of the abdominal wall were visualized as I passed through. Once the abdominal cavity was entered the abdomen was insufflated. This was briefly surveyed. There were no signs of injury. There was an adhesion between the omentum and the abdominal wall in the right lower quadrant. The peritoneum was examined. There was spray from the tattoo from the colonoscopy, however there was no peritoneal studding. There were no masses noted in the liver. I then placed a 12 mm port superior to the umbilicus as well as 2 5 mm ports, 1 in the right lower quadrant and 1 in the lower midline. I took down the omental adhesion using the LigaSure. The patient was placed in Trendelenburg with the right-side up. My social and human services assistant grasped the cecum and lifted it anteriorly. I was able to visualize the ileocolic pedicle. Using LigaSure, I incised the peritoneum overlying the vasculature. I then carefully dissected out the vessels circumferentially. These were divided with a vascular load Endo-ROBERTO CARLOS stapler. There was a small amount of bleeding in mesenteric fat next to the staple line. This was controlled with a clip. Hemostasis of appeared excellent after the clip. Once this was done I divided mesentery superiorly and inferiorly and was able to enter the avascular plane between the colon mesentery and the retroperitoneal fat. This was dissected laterally to the abdominal wall. This was also dissected superiorly. The duodenum was in view as the medial border. Care was taken to avoid injury to the duodenum. I then turned my attention laterally. The lateral peritoneal attachments of the terminal ileum and cecum were divided using LigaSure. The white line of Toldt was then taken down up to the hepatic flexure. This plane met with my posterior dissection. Once this was done I then turned my attention to the gastrocolic ligament. The patient was placed in reverse Trendelenburg. My social and human services assistant grasped stomach and I grasped the omentum on the colon. I then incised the ligament and divided this with cautery until I reached the hepatic flexure. This was somewhat adherent to the gallbladder, however I was able to dissect this away without difficulty. I was able to divide the wispy fibers between the colon and the retroperitoneum with LigaSure. I was then able to encounter my retroperitoneal dissection, completely freeing the colon. I then examined my area of dissection. The small bowel and colon were able to easily come up to the abdominal wall. Hemostasis appeared excellent in the dissection bed. I then grasped the cecum with a grasper. The patient was laid flat. A knife was used to create an incision above the umbilicus, incorporating the 12 mm port site. Dissection was taken down into the subcutaneous fat using caut shaylee. The fascia was incised and the peritoneal cavity entered. Once this was done, an Rob wound protector was placed into the wound. I then passed the specimen through the wound and was able to fully pull the cecum, tumor and small bowel from the incision. I examined the bowel. The tumor was noted to be just proximal to the hepatic flexure. I identified the the middle colic artery and the right branch. This was ligated. I then divided the mesentery up to the bowel. This area of bowel was healthy, well perfused and greater than 5 cm from the tattoo which was distal to the tumor. I cleared the bowel of fat where I intended to divide it and fired a blue load ROBERTO CARLOS stapler across the colon. I inspected the staple line. There was no bleeding. I used Doppler to ensure that the the distal bowel was well perfused which it was. I then turned my attention to the terminal ileum. Identified an area of healthy ileum approximately 10 cm proximal to the ileocecal valve. A mesenteric window was created. I do this I passed a blue load Endo-ROBERTO CARLOS stapler and divided the ileum. There remaining mesentery of the ileum was taken with LigaSure. At this point again hemostasis was excellent on both the mesentery in the staple lines. I then brought the ends together. A stay stitch was placed and I used cautery to make an enterotomy in both the end of the colon as well as the small bowel. Through this I passed the ends of each side of a blue load ROBERTO CARLOS stapler. I then created a 70 cm anastomosis. The stapler was removed. The staple line was inspected within the bowel. There was no obvious bleeding noted. I then closed the common enterotomy with 3-0 silk suture and a an imbricating Lembert fashion. Once this was done, I placed a crotch stitch. The anastomosis was examined. It appeared well perfused and patent. This was then placed back into the abdomen. A small piece of omentum was tucked over the top. Gloves were then changed and instruments as well. The fascia was closed with a running 1. PDS suture. The abdomen was again insufflated. The anastomosis laid nicely in the right mid abdomen. There was no bleeding noted in the dissection bed. The ports were then removed and the abdomen desufflated. The port site incisions were closed with 4-0 Monocryl. The supraumbilical incision was closed with 3-0 Vicryl dermal and 4-0 Monocryl running subcuticular suture. Sterile dressings were then applied. The patient's NG tube was removed prior to extubation. ? The patient was then woken and transported to the recovery area in stable condition. ? The patient tolerated the procedure well. Findings: Obstructing mass proximal to hepatic flexure. Anesthesia: GETA Surgeon: Bronwyn Gamboa MD Estimated blood loss (mL): 50 Specimen: Other Additional Specimen Information: Right colon and ileum Condition: stable Disposition: PACU Date of procedure: 05/16/23 Colon Resection Operation Performed with Curative Intent: Yes Tumor location: Ascending colon Extent of colon and vascular resection: Right hemicolectomy-ileocolic, right colic (if present)
--- NOTE | 2023-05-16 16:15 | PC.NURSE ---
NG tube removed by HOSPITAL ADMISSIONS CLERK prior to moving from OR to Phase I
[2023-05-16 16:16] LABS: Potassium* 3.1 mmol/L (3.6-5.1)
[2023-05-16 16:24] LABS: Carcinoembryonic Antigen 4.5 ng/mL
[2023-05-16] MEDS: 5 % DEXTROSE IN LAC RINGER'S 1,000 ML 125 ML IV (17:27)
--- NOTE | 2023-05-16 23:18 | PC.NURSE ---
Pt arrived from PACU around 16:30. Pt drowsy, and arousable by name. Pt denies nausea, but declining to take liquids by mouth. Clear liquid diet is ordered. Pt reports pain in abdominal area, managed with PRN medication in OCT. Pt verbalized improvement of pain from /10 to a 5/10 and pt was able to fall asleep. Abdominal dressings clear, dry and intact. Up to bedside commode with 1 assist and able to void. Blood pressure slightly elevated, MD aware. Family at bedside, patient resting comfortably at end of shift.
[2023-05-17 00:35] VITALS: BP 167/95; PULSE 91; RESP 18; RESP 20; TEMP 36.5; O2SAT 94; O2SAT 96
[2023-05-17] MEDS: MORPHINE 4 MG/ML INJ IVP ×5 (00:54→20:54)
[2023-05-17] MEDS: SODIUM CHLORIDE 0.9 % (FLUSH) 10 ML SYRINGE 5 ML IVF ×3 (00:55→21:00)
[2023-05-17] MEDS: 5 % DEXTROSE IN LAC RINGER'S 1,000 ML 125 ML IV ×3 (00:56→13:10)
[2023-05-17 05:30] VITALS: BP 161/87; PULSE 85; RESP 18; TEMP 36.5; O2SAT 95
[2023-05-17 06:37] LABS: Hemoglobin* 12.5 gm/dL (12.0-16.0); Mean Corpuscular HGB Conc 35 gm/dL (32-36); Mean Corpuscular Hemoglobin 30 pg (26-34); Mean Corpuscular Volume 87 fL (80-100); Platelet Count* 222 K/uL (140-440); Red Blood Count 4.12 m/uL (4.00-5.20); White Blood Count* 7.52 K/uL (4.50-11.00)
[2023-05-17 06:40] LABS: Slide Review Reflex No
--- NOTE | 2023-05-17 06:49 | PC.NURSE ---
Shift note [id number]: Pt is alert and oriented x3. Afebrile. Pt reports 10/10 dull and achy pain?in abdomen, pain managed with PRN medications. Pt's midline dressing and lap sites with steri strips are CDI.?Pt denies SOB, chest pain and N/V. Pt is up SBA with walker and?IV pole to bathroom, and slept throughout most of night. ?
[2023-05-17 07:05] LABS: Chloride* 101 mmol/L (96-114)
[2023-05-17 07:06] LABS: Potassium* 3.7 mmol/L (3.6-5.1); Sodium* 136 mmol/L (135-149)
[2023-05-17 07:08] LABS: Creatinine* 0.4 mg/dL (0.5-1.5); Est. Creatinine Clearance* 37.01; Estimated Glomerular Filt Rate 97 ml/min
[2023-05-17 07:09] LABS: Anion Gap 7 mEq/L (7-15); Blood Urea Nitrogen* 3 mg/dL (7-30); Calcium* 9.2 mg/dL (8.4-10.6); Carbon Dioxide* 28 mmol/L (20-32); Glucose* 159 mg/dL (60-115)
--- NOTE | 2023-05-17 08:33 | PM.GSPN ---
Subjective Subjective Date Seen: 05/17/23 Interval history: Eli did well overnight. Pain is controlled. No nausea. No difficulties breathing. Has been working with PT this morning. Exam Narrative: Exam Narrative: General: No acute distress CV: Regular rate Respiratory: Breathing nonlabored on room air Abdomen: incisions clean, dry and intact without erythema. There is some ecchymosis around the larger midline incision. Const: Vital Signs, click to edit/add: Vital Signs - 24 hr 05/16/23 15:41 05/16/23 15:46 05/16/23 15:50 Temperature 97.6 F Pulse Rate 70 66 73 Pulse Rate [Left P ulse Oximeter] Respiratory Rate 18 16 16 Blood Pressure 164/83 H 169/77 H 166/85 H Blood Pressure [Ri ght Arm] Pulse Oximetry 100 100 100 Oxygen Delivery Me thod OxyMask OxyMask OxyMask Oxygen Flow Rate 05/16/23 15:55 05/16/23 16:00 05/16/23 16:01 Temperature Pulse Rate 73 65 76 Pulse Rate [Left P ulse Oximeter] Respiratory Rate 16 Blood Pressure 179/86 H Blood Pressure [Ri ght Arm] Pulse Oximetry 100 100 99 Oxygen Delivery Me thod OxyMask OxyMask Oxygen Flow Rate 05/16/23 16:02 05/16/23 16:07 05/16/23 16:13 Temperature Pulse Rate 64 66 66 Pulse Rate [Left P ulse Oximeter] Respiratory Rate 16 16 Blood Pressure 182/84 H 187/89 H 176/90 H Blood Pressure [Ri ght Arm] Pulse Oximetry 100 100 100 Oxygen Delivery Me thod OxyMask OxyMask OxyMask Oxygen Flow Rate 05/16/23 16:16 05/16/23 16:21 05/16/23 16:30 Temperature Pulse Rate 66 66 Pulse Rate [Left P ulse Oximeter] Respiratory Rate 18 18 16 Blood Pressure 186/87 H 186/91 H Blood Pressure [Ri ght Arm] Pulse Oximetry 100 100 90 Oxygen Delivery Me thod OxyMask OxyMask Nasal Cannula Oxygen Flow Rate 1 05/16/23 16:30 05/16/23 16:30 05/16/23 16:45 Temperature 99.2 F 99.2 F 97.3 F L Pulse Rate 66 Pulse Rate [Left P ulse Oximeter] 66 71 Respiratory Rate 16 16 20 Blood Pressure Blood Pressure [Ri ght Arm] 172/81 H 172/81 H 169/83 H Pulse Oximetry 93 90 Oxygen Delivery Me thod Room Air Room Air Nasal Cannula Oxygen Flow Rate 1 05/16/23 17:00 05/16/23 17:15 05/16/23 17:30 Temperature 99.4 F 99.5 F 97.6 F Pulse Rate Pulse Rate [Left P ulse Oximeter] 88 78 77 Respiratory Rate 16 16 20 Blood Pressure Blood Pressure [Ri ght Arm] 177/82 H 173/86 H 165/79 H Pulse Oximetry 94 95 94 Oxygen Delivery Me thod Nasal Cannula Nasal Cannula Nasal Cannula Oxygen Flow Rate 1 1 1 05/16/23 18:00 05/16/23 18:30 05/16/23 19:30 Temperature 98.6 F 97.8 F 98.3 F Pulse Rate Pulse Rate [Left P ulse Oximeter] 80 85 77 Respiratory Rate 18 20 20 Blood Pressure Blood Pressure [Ri ght Arm] 163/86 H 165/83 H 171/90 H Pulse Oximetry 95 94 93 Oxygen Delivery Me thod Nasal Cannula Nasal Cannula Nasal Cannula Oxygen Flow Rate 1 1 1 05/16/23 20:30 05/16/23 21:30 05/16/23 22:30 Temperature 98.9 F 98.9 F 99.2 F Pulse Rate Pulse Rate [Left P ulse Oximeter] 74 75 76 Respiratory Rate 16 16 20 Blood Pressure Blood Pressure [Ri ght Arm] 169/87 H 149/77 H 141/79 H Pulse Oximetry 92 92 92 Oxygen Delivery Me thod Nasal Cannula Nasal Cannula Nasal Cannula Oxygen Flow Rate 0.5 0.5 0.5 05/17/23 00:35 05/17/23 00:35 05/17/23 00:35 Temperature 97.7 F Pulse Rate Pulse Rate [Left P ulse Oximeter] 91 91 Respiratory Rate 20 18 18 Blood Pressure Blood Pressure [Ri ght Arm] 167/95 H Pulse Oximetry 94 96 Oxygen Delivery Me thod Nasal Cannula Room Air Oxygen Flow Rate 0.5 05/17/23 05:30 Temperature 97.7 F Pulse Rate Pulse Rate [Left P ulse Oximeter] 85 Respiratory Rate 18 Blood Pressure Blood Pressure [Ri ght Arm] 161/87 H Pulse Oximetry 95 Oxygen Delivery Me thod Room Air Oxygen Flow Rate Labs/Imaging Labs Labs: Hemoglobin is stable. White blood cell count is normal. Potassium is normal. Progress Note: A&P Assessment and plan (1) S/P right hemicolectomy: Status: Acute (2) Colon obstruction: Problem details: - Differential diagnosis includes colonic neoplasm, inflammation, ischemia, stricture. Doubt active infection. - General Sugery following - 05/14: Gastrografin, scope - 05/14: Per General Surgery -- right colonic obstruction with Gastrografin enema demonstrating a lesion just proximal to the hepatic flexure. This appears to be an apple-core lesion. 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 Colonoscopy confirmed this along with two additional large polyps. Pathology results pending -CT chest and CEA ordered by Gen Surg. CT chest shows no discrete metastatic disease within the chest. No intrathoracic mass or consolidation. A few scattered sub-6 millimeter indeterminate pulmonary nodules. While these are favored to reflect intrapulmonary lymphoid tissue, recommend attention on follow-up exams per clinical protocol. -NG tube continues at low, intermittent suction for decompression - continue until surgery, planned for 05/16 -may have sips of coffee/popsicle. NPO midnight tonight -IV analgesics and antiemetics prn. PPI started, switched to IV per patient request, not tolerating oral PPI -okay to cont lovenox for prophylaxis preoperatively per general surgery -05/16: to OR this morning. Dr. Gamboa addressed family questions. -05/17: POD #1 Right Hemicolectomy; recovering well; tolerating diet; incision sites/c/d/i Status: Acute Plan Eli is an 83-year-old female who is postop day 1 status post laparoscopic right hemicolectomy for obstructing colon mass, likely malignant. Awaiting pathology. -clear liquid diet. Okay to saline lock when patient taking adequate p.o.. I did encourage the patient to take in substances with more calories since she has been NPO for some time. Have ordered a nutrition consult. -no need for postop antibiotics -encourage IS and ambulation. -PT and OT ordered for discharge planning -Lovenox for DVT prophylaxis -anticipate discharge home once she is tolerating a diet and having antegrade bowel function.
[2023-05-17 08:55] VITALS: BP 162/81; PULSE 60; RESP 16; TEMP 37.2; O2SAT 100
--- NOTE | 2023-05-17 09:06 | PM.IMPN1 ---
Progress Note: A&P Assessment and plan (1) Colon obstruction: Problem details: - Differential diagnosis includes colonic neoplasm, inflammation, ischemia, stricture. Doubt active infection. - General Sugery following - 05/14: Gastrografin, scope - 05/14: Per General Surgery -- right colonic obstruction with Gastrografin enema demonstrating a lesion just proximal to the hepatic flexure. This appears to be an apple-core lesion. 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 Colonoscopy confirmed this along with two additional large polyps. Pathology results pending -CT chest and CEA ordered by Gen Surg. CT chest shows no discrete metastatic disease within the chest. No intrathoracic mass or consolidation. A few scattered sub-6 millimeter indeterminate pulmonary nodules. While these are favored to reflect intrapulmonary lymphoid tissue, recommend attention on follow-up exams per clinical protocol. -NG tube continues at low, intermittent suction for decompression - continue until surgery, planned for 05/16 -may have sips of coffee/popsicle. NPO midnight tonight -IV analgesics and antiemetics prn. PPI started, switched to IV per patient request, not tolerating oral PPI -okay to cont lovenox for prophylaxis preoperatively per general surgery -05/16: to OR this morning. Dr. Gamboa addressed family questions. -05/17: POD #1 Right Hemicolectomy; recovering well; tolerating diet; incision sites/c/d/i Status: Acute (2) Lesion of colon: Problem details: -new finding, pathology report reviewed, management as above Status: Acute (3) Hypokalemia: Problem details: -3.0, down from 3.1, unable to tolerate oral supplement yesterday -preoperatively, start IV potassium 10 mEq x3 bumps. Recheck potassium postoperatively, continue IV supplement, monitoring levels -05/17 hypokalemia resolved Status: Acute (4) Pulmonary nodule: Problem details: - CT scan from admission: Right lower lobe pulmonary nodule measuring 4 mm. Given that she is at increased risk for lung cancer, consider repeat chest CT in 12 months according to Fleischner Society recommendations. Status: Acute Time Spent With Patient Total time spent: 30 Subjective Date Seen: 05/17/23 Interval history: POD#1 s/p Lap Right hemicolectomy patient in good spirits minimal abdominal pain potassium normalized daughter at bedside tolerating liquid diet able to urinate this morning pt's granddaughter in labor at [place], baby girl expected soon Exam Narrative: Exam Narrative: Gen: no acute distress HEENT: NCAT EOMI mmm CV: RRR normal s1 s2 Lungs: CTAB Abd: Soft,nt, nd; incision sites c/d/i Neuro: Alert, oriented, CN grossly intact; nonfocal screening?exam Psych: appropriate affect MSK: age appropriate muscle mass Skin; Warm, dry no rash on face Const: Vital Signs, click to edit/add: Vital Signs - 24 hr 05/16/23 15:41 05/16/23 15:46 05/16/23 15:50 Temperature 97.6 F Pulse Rate 70 66 73 Pulse Rate [Left P ulse Oximeter] Respiratory Rate 18 16 16 Blood Pressure 164/83 H 169/77 H 166/85 H Blood Pressure [Ri ght Arm] Pulse Oximetry 100 100 100 Oxygen Delivery Me thod OxyMask OxyMask OxyMask Oxygen Flow Rate 05/16/23 15:55 05/16/23 16:00 05/16/23 16:01 Temperature Pulse Rate 73 65 76 Pulse Rate [Left P ulse Oximeter] Respiratory Rate 16 Blood Pressure 179/86 H Blood Pressure [Ri ght Arm] Pulse Oximetry 100 100 99 Oxygen Delivery Me thod OxyMask OxyMask Oxygen Flow Rate 05/16/23 16:02 05/16/23 16:07 05/16/23 16:13 Temperature Pulse Rate 64 66 66 Pulse Rate [Left P ulse Oximeter] Respiratory Rate 16 16 Blood Pressure 182/84 H 187/89 H 176/90 H Blood Pressure [Ri ght Arm] Pulse Oximetry 100 100 100 Oxygen Delivery Me thod OxyMask OxyMask OxyMask Oxygen Flow Rate 05/16/23 16:16 05/16/23 16:21 05/16/23 16:30 Temperature Pulse Rate 66 66 Pulse Rate [Left P ulse Oximeter] Respiratory Rate 18 18 16 Blood Pressure 186/87 H 186/91 H Blood Pressure [Ri ght Arm] Pulse Oximetry 100 100 90 Oxygen Delivery Me thod OxyMask OxyMask Nasal Cannula Oxygen Flow Rate 1 05/16/23 16:30 05/16/23 16:30 05/16/23 16:45 Temperature 99.2 F 99.2 F 97.3 F L Pulse Rate 66 Pulse Rate [Left P ulse Oximeter] 66 71 Respiratory Rate 16 16 20 Blood Pressure Blood Pressure [Ri ght Arm] 172/81 H 172/81 H 169/83 H Pulse Oximetry 93 90 Oxygen Delivery Me thod Room Air Room Air Nasal Cannula Oxygen Flow Rate 1 05/16/23 17:00 05/16/23 17:15 05/16/23 17:30 Temperature 99.4 F 99.5 F 97.6 F Pulse Rate Pulse Rate [Left P ulse Oximeter] 88 78 77 Respiratory Rate 16 16 20 Blood Pressure Blood Pressure [Ri ght Arm] 177/82 H 173/86 H 165/79 H Pulse Oximetry 94 95 94 Oxygen Delivery Me thod Nasal Cannula Nasal Cannula Nasal Cannula Oxygen Flow Rate 1 1 1 05/16/23 18:00 05/16/23 18:30 05/16/23 19:30 Temperature 98.6 F 97.8 F 98.3 F Pulse Rate Pulse Rate [Left P ulse Oximeter] 80 85 77 Respiratory Rate 18 20 20 Blood Pressure Blood Pressure [Ri ght Arm] 163/86 H 165/83 H 171/90 H Pulse Oximetry 95 94 93 Oxygen Delivery Me thod Nasal Cannula Nasal Cannula Nasal Cannula Oxygen Flow Rate 1 1 1 05/16/23 20:30 05/16/23 21:30 05/16/23 22:30 Temperature 98.9 F 98.9 F 99.2 F Pulse Rate Pulse Rate [Left P ulse Oximeter] 74 75 76 Respiratory Rate 16 16 20 Blood Pressure Blood Pressure [Ri ght Arm] 169/87 H 149/77 H 141/79 H Pulse Oximetry 92 92 92 Oxygen Delivery Me thod Nasal Cannula Nasal Cannula Nasal Cannula Oxygen Flow Rate 0.5 0.5 0.5 05/17/23 00:35 05/17/23 00:35 05/17/23 00:35 Temperature 97.7 F Pulse Rate Pulse Rate [Left P ulse Oximeter] 91 91 Respiratory Rate 20 18 18 Blood Pressure Blood Pressure [Ri ght Arm] 167/95 H Pulse Oximetry 94 96 Oxygen Delivery Me thod Nasal Cannula Room Air Oxygen Flow Rate 0.5 05/17/23 05:30 Temperature 97.7 F Pulse Rate Pulse Rate [Left P ulse Oximeter] 85 Respiratory Rate 18 Blood Pressure Blood Pressure [Ri ght Arm] 161/87 H Pulse Oximetry 95 Oxygen Delivery Me thod Room Air Oxygen Flow Rate Labs Labs: Laboratory Results - last 24 hr 05/14/23 05/16/23 05/17/23 05:50 15:48 05:58 WBC 7.52 RBC 4.12 Hgb 12.5 Hct 36.0 MCV 87 MCH 30 MCHC 35 Plt Count 222 Sodium 136 Potassium 3.1 L 3.7 Chloride 101 Carbon Dioxide 28 Anion Gap 7 BUN 3 L Creatinine 0.4 L Estimated Creat Clear 37.01 Estimated GFR 97 Glucose 159 H Calcium 9.2 CA (off-site) 4.5
[2023-05-17 09:16] VITALS: BMI 22.4
[2023-05-17 11:00] VITALS: BP 151/81; PULSE 83; RESP 16; TEMP 36.9; O2SAT 97
[2023-05-17 15:00] VITALS: BP 164/80; PULSE 97; RESP 16; RESP 18; TEMP 36.6; O2SAT 97
--- NOTE | 2023-05-17 15:52 | PC.NURSE ---
Please see eMar for medications administered to this patient post op day one. Maintenance fluids continue. Noon BG 148, no SS insulin required. Pt eval by PT, up in chair visiting with numerous daughters. Sips of Enlive clear and sips of broth. Pt ambulated in room and one long walk in the hallway. Continue POC. Eval by Dr. Gamboa. Report to Leny SANTA for evening shift.
[2023-05-17 19:00] VITALS: BP 168/82; PULSE 91; RESP 18; TEMP 36.7; O2SAT 98
[2023-05-17] MEDS: ENOXAPARIN 40 MG/0.4 ML INJ SUBCUT (20:52)
--- NOTE | 2023-05-17 22:47 | PC.NURSE ---
Pt completed an ensure clear and cup of broth. Continues to receive morphine IV for pain in her abdomen. Up in the halls walking and up frequently in the room. Dressings to abdomen remain clean dry and intact.
[2023-05-18] VITALS (7 sets, daily range): BP systolic 129–156; BP diastolic 59–80; PULSE 69–90; RESP 16–18; TEMP 36.2–37; O2SAT 90–98
[2023-05-18] MEDS: MORPHINE 4 MG/ML INJ IVP ×2 (00:04→03:51)
[2023-05-18] MEDS: SODIUM CHLORIDE 0.9 % (FLUSH) 10 ML SYRINGE 5 ML IVF ×2 (00:05→03:52)
[2023-05-18] MEDS: 5 % DEXTROSE IN LAC RINGER'S 1,000 ML 125 ML IV (05:58)
--- NOTE | 2023-05-18 06:47 | PC.NURSE ---
Shift note [id number]: Pt is alert and oriented x3. Afebrile. Pt reports 7/10 dull and achy pain?in abdomen, pain managed with PRN medications. Pt is up SBA with walker and?IV pole to bathroom.?Pt denies SOB, chest pain and N/V. Pt?slept throughout most of night. No bowel movement. ?
[2023-05-18 06:52] LABS: Hematocrit 32.6 % (33.0-51.0); Hemoglobin* 11.1 gm/dL (12.0-16.0); Mean Corpuscular HGB Conc 34 gm/dL (32-36); Mean Corpuscular Hemoglobin 30 pg (26-34); Mean Corpuscular Volume 89 fL (80-100); Platelet Count* 225 K/uL (140-440); Red Blood Count 3.68 m/uL (4.00-5.20); White Blood Count* 5.19 K/uL (4.50-11.00)
[2023-05-18 07:03] LABS: Slide Review Reflex No
[2023-05-18 07:08] LABS: Chloride* 100 mmol/L (96-114); Potassium* 3.8 mmol/L (3.6-5.1); Sodium* 136 mmol/L (135-149)
[2023-05-18 07:11] LABS: Anion Gap 4 mEq/L (7-15); Blood Urea Nitrogen* 4 mg/dL (7-30); Carbon Dioxide* 32 mmol/L (20-32); Creatinine* 0.4 mg/dL (0.5-1.5); Est. Creatinine Clearance* 37.01; Estimated Glomerular Filt Rate 97 ml/min; Glucose* 107 mg/dL (60-115)
[2023-05-18] MEDS: ACETAMINOPHEN 325 MG TABLET 650 MG PO ×2 (08:40→18:37)
[2023-05-18] MEDS: MORPHINE 10 MG/0.5 ML ORAL SOLN PO (08:42)
--- NOTE | 2023-05-18 09:33 | PM.IMPN1 ---
Progress Note: A&P Assessment and plan (1) Colon obstruction: Problem details: - Differential diagnosis includes colonic neoplasm, inflammation, ischemia, stricture. Doubt active infection. - General Sugery following - 05/14: Gastrografin, scope - 05/14: Per General Surgery -- right colonic obstruction with Gastrografin enema demonstrating a lesion just proximal to the hepatic flexure. This appears to be an apple-core lesion. 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 Colonoscopy confirmed this along with two additional large polyps. Pathology results pending -CT chest and CEA ordered by Gen Surg. CT chest shows no discrete metastatic disease within the chest. No intrathoracic mass or consolidation. A few scattered sub-6 millimeter indeterminate pulmonary nodules. While these are favored to reflect intrapulmonary lymphoid tissue, recommend attention on follow-up exams per clinical protocol. -NG tube continues at low, intermittent suction for decompression - continue until surgery, planned for 05/16 -may have sips of coffee/popsicle. NPO midnight tonight -IV analgesics and antiemetics prn. PPI started, switched to IV per patient request, not tolerating oral PPI -okay to cont lovenox for prophylaxis preoperatively per general surgery -05/16: to OR this morning. Dr. Gamboa addressed family questions. -05/17: POD #1 Right Hemicolectomy; recovering well; tolerating diet; incision sites/c/d/i -05/18: POD#2 Right Hemicolectomy; tolerating liquid diet, incision sites/c/d/i; pain control diet dvt ppx per surger Status: Acute (2) S/P right hemicolectomy: Status: Acute (3) Hypokalemia: Problem details: -3.0, down from 3.1, unable to tolerate oral supplement yesterday -preoperatively, start IV potassium 10 mEq x3 bumps. Recheck potassium postoperatively, continue IV supplement, monitoring levels -05/17 hypokalemia resolved -05/18 K WNL Status: Acute (4) Lesion of colon: Problem details: -new finding, pathology report reviewed, management as above Status: Acute (5) Pulmonary nodule: Problem details: - CT scan from admission: Right lower lobe pulmonary nodule measuring 4 mm. Given that she is at increased risk for lung cancer, consider repeat chest CT in 12 months according to Fleischner Society recommendations. Status: Acute Subjective Date Seen: 05/18/23 Interval history: patient no BM overnight per patient tolerating diet no nausea or vomiting pain controlled Exam Narrative: Exam Narrative: Gen: no acute distress HEENT: NCAT EOMI mmm CV: RRR normal s1 s2 Lungs: CTAB Abd: Soft,nt, nd; surgical incision site c/d/i Neuro: Alert, oriented, nonfocal screening?exam Psych: appropriate affect MSK: age appropriate muscle mass Skin; Warm, dry no rash on face Const: Vital Signs, click to edit/add: Vital Signs - 24 hr 05/17/23 11:00 05/17/23 15:00 05/17/23 15:00 Temperature 98.4 F Pulse Rate [Left P ulse Oximeter] 83 97 Respiratory Rate 16 16 18 Blood Pressure [Ri ght Arm] 151/81 H Pulse Oximetry 97 97 Oxygen Delivery Me thod Room Air Room Air 05/17/23 15:00 05/17/23 19:00 05/18/23 00:10 Temperature 97.8 F 98.1 F Pulse Rate [Left P ulse Oximeter] 97 91 90 Respiratory Rate 18 18 16 Blood Pressure [Ri ght Arm] 164/80 H 168/82 H Pulse Oximetry 97 98 Oxygen Delivery Me thod Room Air Room Air 05/18/23 00:10 05/18/23 00:10 05/18/23 03:45 Temperature 98.0 F 97.8 F Pulse Rate [Left P ulse Oximeter] 83 85 Respiratory Rate 16 16 16 Blood Pressure [Ri ght Arm] 143/75 H 156/80 H Pulse Oximetry 90 90 96 Oxygen Delivery Me thod Room Air Room Air Room Air Labs Labs: Laboratory Results - last 24 hr 05/18/23 05:50 WBC 5.19 RBC 3.68 L Hgb 11.1 L Hct 32.6 L MCV 89 MCH 30 MCHC 34 Plt Count 225 Sodium 136 Potassium 3.8 Chloride 100 Carbon Dioxide 32 Anion Gap 4 L BUN 4 L Creatinine 0.4 L Estimated Creat Clear 37.01 Estimated GFR 97 Glucose 107 Calcium 9.0
--- NOTE | 2023-05-18 12:45 | P.GSPN_ITS ---
Subjective Subjective Date Seen: 05/18/23 Interval history: Patient is doing well today. She has been getting up and walking with physical therapy. Her daughters are at the bedside in supportive. She has been tolerating clear liquids, denies any nausea or vomiting. No real appetite yet. She has passed a little gas but no bowel movement. Pain is being controlled on pain medication, she was encouraged to transition to orals. Exam 2 Narrative: Exam Narrative: General: Alert and oriented, no acute distress. Sitting comfortably in a chair Abdomen: Dressings were removed, Steri-Strips remain in place. Some surrounding ecchymoses of the midline incision, no concern for infection. Steri-Strips are clean/dry/intact. Const: Vital Signs, click to edit/add: Vital Signs - 24 hr 05/17/23 15:00 05/17/23 15:00 05/17/23 15:00 Temperature 97.8 F Pulse Rate [Left P ulse Oximeter] 97 97 Respiratory Rate 16 18 18 Blood Pressure [Ri ght Arm] 164/80 H Pulse Oximetry 97 97 Oxygen Delivery Me thod Room Air Room Air 05/17/23 19:00 05/18/23 00:10 05/18/23 00:10 Temperature 98.1 F Pulse Rate [Left P ulse Oximeter] 91 90 Respiratory Rate 18 16 16 Blood Pressure [Ri ght Arm] 168/82 H Pulse Oximetry 98 90 Oxygen Delivery Fl thod Room Air Room Air 05/18/23 00:10 05/18/23 03:45 05/18/23 07:55 Temperature 98.0 F 97.8 F Pulse Rate [Left P ulse Oximeter] 83 85 Respiratory Rate 16 16 16 Blood Pressure [Ri ght Arm] 143/75 H 156/80 H Pulse Oximetry 90 96 98 Oxygen Delivery Fl thod Room Air Room Air Room Air 05/18/23 07:55 05/18/23 11:00 Temperature 97.1 F L 97.4 F L Pulse Rate [Left P ulse Oximeter] 81 78 Respiratory Rate 16 16 Blood Pressure [Ri ght Arm] 145/69 H 129/59 L Pulse Oximetry 98 94 Oxygen Delivery Me thod Room Air Room Air Labs/Imaging Labs Labs: No leukocytosis, hemoglobin 11.1. BMP within normal limits Imaging Imaging: No new imaging Progress Note: A&P Assessment and plan (1) S/P right hemicolectomy: Status: Acute (2) Colon obstruction: Problem details: - Differential diagnosis includes colonic neoplasm, inflammation, ischemia, stricture. Doubt active infection. - General Sugery following - 05/14: Gastrografin, scope - 05/14: Per General Surgery -- right colonic obstruction with Gastrografin enema demonstrating a lesion just proximal to the hepatic flexure. This appears to be an apple-core lesion. 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 Colonoscopy confirmed this along with two additional large polyps. Pathology results pending -CT chest and CEA ordered by Gen Surg. CT chest shows no discrete metastatic disease within the chest. No intrathoracic mass or consolidation. A few scattered sub-6 millimeter indeterminate pulmonary nodules. While these are favored to reflect intrapulmonary lymphoid tissue, recommend attention on follow-up exams per clinical protocol. -NG tube continues at low, intermittent suction for decompression - continue until surgery, planned for 05/16 -may have sips of coffee/popsicle. NPO midnight tonight -IV analgesics and antiemetics prn. PPI started, switched to IV per patient request, not tolerating oral PPI -okay to cont lovenox for prophylaxis preoperatively per general surgery -05/16: to OR this morning. Dr. Gamboa addressed family questions. -12: POD #1 Right Hemicolectomy; recovering well; tolerating diet; incision sites/c/d/i -05/18: POD#2 Right Hemicolectomy; tolerating liquid diet, incision sites/c/d/i; pain control diet dvt ppx per surger Status: Acute Plan Eli is an 83-year-old female who is postop day 2 status post laparoscopic right hemicolectomy for obstructing colon mass, likely malignant. Awaiting pathology. -will advance to full liquid diet with patient passing gas. She was encouraged to take advancement of the diet slowly -p.o. pain meds as needed -PT continuing to work with patient on ambulation -SCDs and Lovenox for DVT prophylaxis. She will need a 4 week course of Lovenox for presumed adenocarcinoma of colon. Pathology is still pending.
[2023-05-18] MEDS: HYDROCODONE-ACETAMIN 5-325 MG 1 TAB PO ×2 (14:28→20:22)
--- NOTE | 2023-05-18 15:56 | PC.NURSE ---
Eval by Dr. Davila. Pt transitioned to oral pain meds, encourage PO intake, CL bkfst, [place] lunch. Family members present and supportive at bedside. Orders to d/c IVF, d/c IV, d/c Q6 hour BG checks and d/c sliding scale insulin. Pt walked in hallway twice w/staff and family. Appears comfortable, playing cards with her family. Pt passing flatus, BS present and occasional burping. Continue plan of care, report to Leny Cheung RN for evening shift.
[2023-05-18] MEDS: ENOXAPARIN 40 MG/0.4 ML INJ SUBCUT (20:22)
--- NOTE | 2023-05-18 22:21 | PC.NURSE ---
Shift [id number]- Patient up with SBA and walks the halls. Family at bedside and supportive. Tolerating full liquid diet without issue, though admits to small appetite to do so. Bowel sounds are hypoactive in lower quads, active in upper. Incision and lap sites with steri strips, scant blood. PRN pain medication administered with relief.
[2023-05-19] VITALS (8 sets, daily range): BP systolic 132–163; BP diastolic 67–87; PULSE 74–97; RESP 16–18; TEMP 36.3–37.2; O2SAT 90–98
--- NOTE | 2023-05-19 06:11 | PC.NURSE ---
End of shift nursing note, [id number]: Pt alert and oriented to questions, a little forgetful when awoken at start of shift. Vitals stable, last BP elevated at 163/80 but pt had just returned from amb to bathroom, pt denies headache. Pt denies pain, PRN offered but pt declines need, stating ?I feel good?. Voiding without issue, tolerating fluids. Slept well throughout the night. Up SBA w/ walker. Pt has call light within reach.??
[2023-05-19 07:10] LABS: Hematocrit 35.4 % (33.0-51.0); Mean Corpuscular HGB Conc 34 gm/dL (32-36); Mean Corpuscular Hemoglobin 30 pg (26-34); Mean Corpuscular Volume 88 fL (80-100); Platelet Count* 268 K/uL (140-440); Red Blood Count 4.01 m/uL (4.00-5.20); Slide Review Reflex No; White Blood Count* 4.51 K/uL (4.50-11.00)
[2023-05-19 07:24] LABS: Chloride* 101 mmol/L (96-114); Sodium* 138 mmol/L (135-149)
[2023-05-19 07:25] LABS: Potassium* 3.7 mmol/L (3.6-5.1)
[2023-05-19 07:27] LABS: Anion Gap 6 mEq/L (7-15); Blood Urea Nitrogen* 6 mg/dL (7-30); Carbon Dioxide* 31 mmol/L (20-32); Creatinine* 0.5 mg/dL (0.5-1.5); Est. Creatinine Clearance* 37.01; Estimated Glomerular Filt Rate 92 ml/min
[2023-05-19 07:28] LABS: Calcium* 9.6 mg/dL (8.4-10.6); Glucose* 95 mg/dL (60-115)
--- NOTE | 2023-05-19 10:56 | PM.GSPN ---
Subjective Subjective Date Seen: 05/19/23 Interval history: Patient has been up walking with PT this morning. States that she feels better and ana than yesterday. She did pass gas and had a liquid stool this morning. Still no significant appetite. Denies any nausea or vomiting. Pain is well controlled, but reporting increased cramping pain with gas moving. No other concerns. Exam Narrative: Exam Narrative: Gen: alert and oriented, NAD Abdomen: soft, non distended. Incisions c/d/i, resolving ecchymosis around midline incision with no concern for infection. Tender to palpation lower abdomen with palpation. Const: Vital Signs, click to edit/add: Vital Signs - 24 hr 05/18/23 11:00 05/18/23 15:35 05/18/23 15:35 Temperature 97.4 F L 98 F Pulse Rate [Left P ulse Oximeter] 78 75 Respiratory Rate 16 18 Blood Pressure [Le ft Arm] Blood Pressure [Ri ght Arm] 129/59 L 137/72 Pulse Oximetry 94 97 97 Oxygen Delivery Me thod Room Air Room Air Room Air Oxygen Flow Rate 05/18/23 19:02 05/18/23 23:30 05/18/23 23:30 Temperature 98.6 F Pulse Rate [Left P ulse Oximeter] 75 69 Respiratory Rate 18 18 18 Blood Pressure [Le ft Arm] Blood Pressure [Ri ght Arm] 132/75 Pulse Oximetry 95 94 Oxygen Delivery Me thod Room Air Oxygen Flow Rate 0 05/18/23 23:30 05/19/23 03:00 05/19/23 08:45 Temperature 97.5 F L 97.3 F L 97.9 F Pulse Rate [Left P ulse Oximeter] 69 74 87 Respiratory Rate 18 16 18 Blood Pressure [Le ft Arm] 136/75 163/80 H 132/67 Blood Pressure [Ri ght Arm] Pulse Oximetry 94 98 96 Oxygen Delivery Me thod Room Air Room Air Room Air Oxygen Flow Rate 0 05/19/23 09:00 Temperature Pulse Rate [Left P ulse Oximeter] Respiratory Rate Blood Pressure [Le ft Arm] Blood Pressure [Ri ght Arm] Pulse Oximetry 96 Oxygen Delivery Me thod Room Air Oxygen Flow Rate Labs/Imaging Labs Labs: No new labs. Progress Note: A&P Assessment and plan (1) S/P right hemicolectomy: Status: Acute (2) Colon obstruction: Problem details: - Differential diagnosis includes colonic neoplasm, inflammation, ischemia, stricture. Doubt active infection. - General Sugery following - 05/14: Gastrografin, scope - 05/14: Per General Surgery -- right colonic obstruction with Gastrografin enema demonstrating a lesion just proximal to the hepatic flexure. This appears to be an apple-core lesion. 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 Colonoscopy confirmed this along with two additional large polyps. Pathology results pending -CT chest and CEA ordered by Gen Surg. CT chest shows no discrete metastatic disease within the chest. No intrathoracic mass or consolidation. A few scattered sub-6 millimeter indeterminate pulmonary nodules. While these are favored to reflect intrapulmonary lymphoid tissue, recommend attention on follow-up exams per clinical protocol. -NG tube continues at low, intermittent suction for decompression - continue until surgery, planned for 05/16 -may have sips of coffee/popsicle. NPO midnight tonight -IV analgesics and antiemetics prn. PPI started, switched to IV per patient request, not tolerating oral PPI -okay to cont lovenox for prophylaxis preoperatively per general surgery -05/16: to OR this morning. Dr. Gamboa addressed family questions. -12: POD #1 Right Hemicolectomy; recovering well; tolerating diet; incision sites/c/d/i -05/18: POD#2 Right Hemicolectomy; tolerating liquid diet, incision sites/c/d/i; pain control diet dvt ppx per surger Status: Acute Plan Eli is an 83-year-old female who is postop day 3 status post laparoscopic right hemicolectomy for obstructing colon mass, likely malignant. Awaiting pathology. Has had return or bowel function. Will advance diet as tolerated today. Patient continues to work with PT. Daily note indicates patient will be safe to discharge to home. Anticipate discharge tomorrow. -Advance diet as tolerated. -p.o. pain meds as needed -PT continuing to work with patient on ambulation -SCDs and Lovenox for DVT prophylaxis. Patient education for lovenox at home.
--- NOTE | 2023-05-19 11:42 | PM.IMPN1 ---
Progress Note: A&P Assessment and plan (1) Colon obstruction: Problem details: - Differential diagnosis includes colonic neoplasm, inflammation, ischemia, stricture. Doubt active infection. - General Sugery following - 05/14: Gastrografin, scope - 05/14: Per General Surgery -- right colonic obstruction with Gastrografin enema demonstrating a lesion just proximal to the hepatic flexure. This appears to be an apple-core lesion. 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 Colonoscopy confirmed this along with two additional large polyps. Pathology results pending -CT chest and CEA ordered by Gen Surg. CT chest shows no discrete metastatic disease within the chest. No intrathoracic mass or consolidation. A few scattered sub-6 millimeter indeterminate pulmonary nodules. While these are favored to reflect intrapulmonary lymphoid tissue, recommend attention on follow-up exams per clinical protocol. -NG tube continues at low, intermittent suction for decompression - continue until surgery, planned for 05/16 -may have sips of coffee/popsicle. NPO midnight tonight -IV analgesics and antiemetics prn. PPI started, switched to IV per patient request, not tolerating oral PPI -okay to cont lovenox for prophylaxis preoperatively per general surgery -05/16: to OR this morning. Dr. Gamboa addressed family questions. -12: POD #1 Right Hemicolectomy; recovering well; tolerating diet; incision sites/c/d/i -05/18: POD#2 Right Hemicolectomy; tolerating liquid diet, incision sites/c/d/i; pain control diet dvt ppx per surgery - 05/19 postop day 3. Tolerating a full liquid diet, will be advancing further today. Doing very well and anticipating potential discharge home tomorrow. Status: Acute (2) S/P right hemicolectomy: Status: Acute (3) Lesion of colon: Problem details: -new finding, pathology report reviewed, management as above Status: Acute (4) Pulmonary nodule: Problem details: - CT scan from admission: Right lower lobe pulmonary nodule measuring 4 mm. Given that she is at increased risk for lung cancer, consider repeat chest CT in 12 months according to Fleischner Society recommendations. Status: Acute Subjective Time Seen by Provider: 10:50 Date Seen: 05/19/23 Interval history: Rolanda is doing well today. She is enjoying full liquids and had a good BM this morning. She did a lot of walking with her daughter in the hallway yesterday. Exam Narrative: Exam Narrative: General: No acute distress. Awake, alert, oriented x3. No pallor. No jaundice. Oropharynx: Clear. Mucous membranes moist. Cardiovascular: Regular rate and rhythm. No murmurs, gallops, or rubs. Respiratory: Clear to auscultation bilaterally. No wheezes or crackles. Abdomen: Bowel sounds present. Soft, nondistended, Karolina strips are clean, dry, and intact. Mild resolving ecchymoses around incision sites. Extremities: Trace bilateral ankle edema. Const: Vital Signs, click to edit/add: Vital Signs - 24 hr 05/18/23 15:35 05/18/23 15:35 05/18/23 19:02 Temperature 98 F 98.6 F Pulse Rate [Left P ulse Oximeter] 75 75 Respiratory Rate 18 18 Blood Pressure [Le ft Arm] Blood Pressure [Ri ght Arm] 137/72 132/75 Pulse Oximetry 97 97 95 Oxygen Delivery Me thod Room Air Room Air Oxygen Flow Rate 05/18/23 23:30 05/18/23 23:30 05/18/23 23:30 Temperature 97.5 F L Pulse Rate [Left P ulse Oximeter] 69 69 Respiratory Rate 18 18 18 Blood Pressure [Le ft Arm] 136/75 Blood Pressure [Ri ght Arm] Pulse Oximetry 94 94 Oxygen Delivery Me thod Room Air Room Air Oxygen Flow Rate 0 0 05/19/23 03:00 05/19/23 08:45 05/19/23 09:00 Temperature 97.3 F L 97.9 F Pulse Rate [Left P ulse Oximeter] 74 87 Respiratory Rate 16 18 Blood Pressure [Le ft Arm] 163/80 H 132/67 Blood Pressure [Ri ght Arm] Pulse Oximetry 98 96 96 Oxygen Delivery Me thod Room Air Room Air Room Air Oxygen Flow Rate Labs Labs: Laboratory Results - last 24 hr 05/19/23 06:14 WBC 4.51 RBC 4.01 Hgb 12.0 Hct 35.4 MCV 88 MCH 30 MCHC 34 Plt Count 268 Sodium 138 Potassium 3.7 Chloride 101 Carbon Dioxide 31 Anion Gap 6 L BUN 6 L Creatinine 0.5 Estimated Creat Clear 37.01 Estimated GFR 92 Glucose 95 Calcium 9.6
[2023-05-19] MEDS: ACETAMINOPHEN 325 MG TABLET 650 MG PO (14:17)
--- NOTE | 2023-05-19 17:30 | PC.NURSE ---
End of shift: VSS on RA throughout the day up ad wanda as tolerated in her room. SBA w/ RW when walking in the halls... completed 4 walks so far today goal is 6. Complains of 6/10 stiffness when up and walking around in her abdomen.... offered pain medication multiple times today but denied any until this afternoon and finally took Tylenol. Advanced her diet to a regular diet late this afternoon.. no complains of N/V. Although appetite remains poor.. declined dinner this evening. Incision sites on abdomen are CDI, open to air with steri strips. Midline incision with steri strips along with ecchymosis and a small amount of old dried up blood. Call light within reach.. daughter in the room throughout the day. I also educated them both on subcutaneous injections due to patient being discharged with Lovenox injections for [address] Davila I also printed them handouts regarding what blood thinners are and hwo to perform subcutaneous injections. The patient repeated the demonstration to me via teach back. All questions were answered. BS remain hypoactive... 3 moderate loose liquid stools today.
[2023-05-19] MEDS: ENOXAPARIN 40 MG/0.4 ML INJ SUBCUT (21:41)
[2023-05-20 03:00] VITALS: BP 142/79; PULSE 90; RESP 16; TEMP 37.3; O2SAT 97
--- NOTE | 2023-05-20 06:53 | PC.NURSE ---
Shift note: Pt is doing well. Started regular diet yesterday and have no abdominal discomfort, n/v. Pt is independent in room. A/O with occasional confusion. Pt had adequate sleep. Woke up early at 0430 parking her bag and dressing bed.
[2023-05-20 07:17] LABS: Hematocrit 36.9 % (33.0-51.0); Hemoglobin* 12.6 gm/dL (12.0-16.0); Mean Corpuscular HGB Conc 34 gm/dL (32-36); Mean Corpuscular Hemoglobin 30 pg (26-34); Mean Corpuscular Volume 87 fL (80-100); Platelet Count* 320 K/uL (140-440); Red Blood Count 4.22 m/uL (4.00-5.20); White Blood Count* 9.86 K/uL (4.50-11.00)
[2023-05-20 07:25] LABS: Slide Review Reflex No
[2023-05-20 07:31] LABS: Chloride* 99 mmol/L (96-114)
[2023-05-20 07:32] LABS: Potassium* 3.3 mmol/L (3.6-5.1); Sodium* 136 mmol/L (135-149)
[2023-05-20 07:34] LABS: Creatinine* 0.6 mg/dL (0.5-1.5); Est. Creatinine Clearance* 37.01; Estimated Glomerular Filt Rate 88 ml/min
[2023-05-20 07:35] LABS: Anion Gap 12 mEq/L (7-15); Blood Urea Nitrogen* 6 mg/dL (7-30); Calcium* 9.3 mg/dL (8.4-10.6); Carbon Dioxide* 25 mmol/L (20-32); Glucose* 126 mg/dL (60-115)
[2023-05-20 08:01] VITALS: BP 111/72; PULSE 83; RESP 16; RESP 18; TEMP 36.3; O2SAT 98
[2023-05-20] MEDS: POTASSIUM CHLORIDE 10 MEQ CAPSULE ER 20 MEQ PO (09:24)
--- NOTE | 2023-05-20 10:01 | P.DS_ITS ---
DS: Providers Provider Time Seen by Provider: 08:11 Date Seen: 05/20/23 Date of admission: 05/11/23 14:57 Primary care physician: Brii Browne APRN, PHOTO LAB TECHNICIAN Admitting Clinician: Harry Christie MD Consults: 05/11/23 16:54 Consult to Physician [CONS] Routine Comment: Consulting Provider: Bronwyn Gamboa Has provider been notified: Yes 05/16/23 16:43 Consult to Nutrition [CONS] Routine Comment: Reason for consult:: Nutritional Consult Comment: frail, has been NPO x 6 days Consult to Occupational Therapy [CONS] Routine Comment: Reason(s) for OT Consult:: ADLs Prior to Discharge Any Restrictions?:: No Restrictions Consult to Physical Therapy [CONS] Routine Comment: Reason(s) for PT Consult:: Evaluate and Treat Any Restrictions?:: No Restrictions Attending Physician on discharge: MD Giovanni Date of Discharge: 05/20/23 DS: Diagnosis Discharge Diagnosis (1) S/P right hemicolectomy: Status: Acute Problem details: 05/16/2023 Dr. Gamboa (2) Hypokalemia: Status: Resolved Problem details: -3.0, down from 3.1, unable to tolerate oral supplement yesterday -preoperatively, start IV potassium 10 mEq x3 bumps. Recheck potassium postoperatively, continue IV supplement, monitoring levels -05/17 hypokalemia resolved - 05/20 mild asymptomatic hypokalemia. Replacing orally. Patient to resume OTC daily potassium as outpatient upon discharge today. (3) Lesion of colon: Status: Acute (4) History of tobacco use: Status: Acute (5) Pulmonary nodule: Status: Acute Problem details: - CT scan from admission: Right lower lobe pulmonary nodule measuring 4 mm. Given that she is at increased risk for lung cancer, consider repeat chest CT in 12 months according to Fleischner Society recommendations. (6) Colon obstruction: Status: Acute Problem details: - Differential diagnosis includes colonic neoplasm, inflammation, ischemia, stricture. Doubt active infection. - General Sugery following - 05/14: Gastrografin, scope - 05/14: Per General Surgery -- right colonic obstruction with Gastrografin enema demonstrating a lesion just proximal to the hepatic flexure. This appears to be an apple-core lesion. 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 Colonoscopy confirmed this along with two additional large polyps. Pathology results pending -CT chest and CEA ordered by Gen Surg. CT chest shows no discrete metastatic disease within the chest. No intrathoracic mass or consolidation. A few scattered sub-6 millimeter indeterminate pulmonary nodules. While these are favored to reflect intrapulmonary lymphoid tissue, recommend attention on follow-up exams per clinical protocol. -NG tube continues at low, intermittent suction for decompression - continue until surgery, planned for 05/16 -may have sips of coffee/popsicle. NPO midnight tonight -IV analgesics and antiemetics prn. PPI started, switched to IV per patient request, not tolerating oral PPI -okay to cont lovenox for prophylaxis preoperatively per general surgery -05/16: to OR this morning. Dr. Gamboa addressed family questions. -05/17: POD #1 Right Hemicolectomy; recovering well; tolerating diet; incision sites/c/d/i -05/18: POD#2 Right Hemicolectomy; tolerating liquid diet, incision sites/c/d/i; pain control diet dvt ppx per surgery - 05/19 postop day 3. Tolerating a full liquid diet, will be advancing further today. Doing very well and anticipating potential discharge home tomorrow. - 05/20 Tolerating regular diet. Discharging home today. DS: Summary Hospital Course Hospital Course: This is an 82-year-old female who had a 2-3 day history of increasing abdominal pain, distention, and vomiting. She had not had a satisfactory bowel movement for 6 weeks prior to that and in the middle of that had been seen in the ER at which time a CT abdomen and pelvis showed large amount stool in the cecum and proximal portion of the ascending colon. She was treated for constipation and repeat x-ray showed decreased stool burden. She had a colonoscopy at age 48 which was reportedly normal. After having increasing abdominal pain, distension, and vomiting a repeat CT abdomen and pelvis showed multiple dilated loops of ileum with dilation of the cecum and proximal ascending colon. There was circumferential wall thickening and mild pericolonic inflammatory stranding with prominent lymph nodes involving the distal ascending colon. Dr. Gamboa was consulted and the patient underwent Gastrografin enema and scope on 05/14/2023. She had an apple-core lesion just proximal to the hepatic flexure. Colonoscopy confirmed this along with 2 additional large polyps. On CTs chest she was found to have no discrete metastatic disease, but diffuse scattered sub 6 mm indeterminate pulmonary nodules. These will need to be followed as an outpatient. She underwent right hemicolectomy on 05/16/[address] Gamboa. Pathology showed a tubulovillous adenoma, negative for high-grade dysplasia, another tubular adenoma consistent with advanced adenoma due to size, negative for high-grade dysplasia and malignancy, and a 3rd tubular adenoma and inflammatory polyp, negative for high-grade dysplasia. She had return of bowel function and was able to advance her diet to regular and has tolerated that well overnight. She is discharged home today in stable condition. One of her daughters is coming to stay with her for the next week. NOTE TO PCP: Also, please check potassium at next visit. Please be aware of CT lung: Right lower lobe pulmonary nodule measuring 4 mm. Given increased risk for lung cancer, repeat chest CT in 12 months, according to Fleischner Society recommendations. Time Spent with Patient Time attestation: Total time spent providing and/or coordinating discharge services: Exam Narrative: Exam Narrative: General: No acute distress. Awake, alert, oriented. No pallor. No jaundice. Oropharynx: Clear. Mucous membranes moist. Cardiovascular: Regular rate and rhythm. No murmurs, gallops, or rubs. Respiratory: Clear to auscultation bilaterally. No wheezes or crackles. Abdomen: Bowel sounds present. Soft, nondistended, nontender. Steristrips are clean, dry, and intact. Mild resolving ecchymoses around incision sites. Extremities: No ankle edema. Const: Vital Signs, click to edit/add: Vital Signs - 24 hr 05/19/23 11:00 05/19/23 15:30 05/19/23 15:50 Temperature 97.9 F 98.7 F Pulse Rate [Left P ulse Oximeter] 89 87 Respiratory Rate 18 16 16 Blood Pressure [Le ft Arm] 144/73 H Blood Pressure [Ri ght Arm] 150/79 H Pulse Oximetry 97 93 90 Oxygen Delivery Me thod Room Air Room Air Oxygen Flow Rate 05/19/23 19:00 05/19/23 23:00 05/19/23 23:00 Temperature 98.9 F 97.9 F Pulse Rate [Left P ulse Oximeter] 97 81 Respiratory Rate 16 16 16 Blood Pressure [Le ft Arm] Blood Pressure [Ri ght Arm] 152/80 H 152/87 H Pulse Oximetry 98 98 98 Oxygen Delivery Me thod Room Air Room Air Room Air Oxygen Flow Rate 0 05/20/23 03:00 05/20/23 08:01 05/20/23 08:01 Temperature 99.2 F 97.4 F L Pulse Rate [Left P ulse Oximeter] 90 83 Respiratory Rate 16 16 18 Blood Pressure [Le ft Arm] 111/72 Blood Pressure [Ri ght Arm] 142/79 H Pulse Oximetry 97 98 98 Oxygen Delivery Me thod Room Air Room Air Room Air Oxygen Flow Rate DS: Data Data Completed and Pending Completed studies during hospitalization: Ordering Physician: Mark Herrera M.D. Date of Service: 05/11/23 Procedure(s): XR abdomen min 2V Accession Number(s): [id number] cc: Brii COELLO CNP; Mark Herrera M.D.~ For Patients: As a result of the Cures Act, medical imaging exams and procedure reports are released immediately into your electronic medical record. You may view this report before your referring provider. If you have questions, please contact your health care provider. Indication: Abdominal pain, no bowel movement for 2 days. Technique: Abdomen 2 view Comparison: Abdomen 04/16/2023 Findings/Impression: No definite evidence of obstruction with a single borderline diameter loop of small bowel in the mid abdomen which can be seen in enteritis/ileus. Minimal stool within the colon. Phleboliths in the pelvis. Bilateral hip osteoarthritis. Dictated by Marcelino Thomas MD @ 05/11/2023 9:08:27 AM (Electronically Signed) Ordering Physician: Mark Herrera M.D. Date of Service: 05/11/23 Procedure(s): CT abdomen pelvis w con Accession Number(s): [id number] cc: Brii COELLO CNP; Mark Herrera M.D.~ For Patients: As a result of the Cures Act, medical imaging exams and procedure reports are released immediately into your electronic medical record. You may view this report before your referring provider. If you have questions, please contact your health care provider. INDICATION: Eight days of no bowel movement. Concern for stercoral colitis.. TECHNIQUE: CT abdomen and pelvis acquired with 66 cc Isovue 370 IV contrast. COMPARISON: 04/04/2023. FINDINGS: Lower chest: 4 millimeter right lower lobe noncalcified pulmonary nodule (series 3, image 6) Liver: Unremarkable. Normal in size and attenuation. No suspicious masses. Gallbladder and bile ducts: Unremarkable. No stones or inflammation. No biliary dilatation. Pancreas: Unremarkable. No mass or inflammation. Spleen: Unremarkable. Normal in size. No masses. Adrenal glands: Unremarkable. No nodules. Kidneys: Unremarkable. No suspicious masses, stones, or hydronephrosis. GI tract: There are several dilated loops fluid filled ileum within the mid and lower abdomen. The dilated small bowel measures up to 3 centimeters in diameter. The terminal ileum as well as the cecum and proximal ascending colon are distended and fluid filled. The distal ascending colon is decompressed with circumferential wall thickening measuring up to 8 millimeters and there is mild adjacent pericolonic inflammatory stranding and prominent pericolonic lymph nodes (series 2, image [id number]). The appendix is not visualized. Vasculature: Extensive atherosclerotic calcifications without aneurysmal dilation. Mesenteric arteries are patent. Lymph nodes: No lymphadenopathy. Peritoneum/Abdominal Wall: Trace intraperitoneal free fluid. No pneumoperitoneum. Pelvis: Unremarkable. Bones: Osseous demineralization. 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 IMPRESSION: 1. Multiple dilated loops of ileum with dilation of the cecum and proximal ascending colon, which may represent ileus versus partial bowel obstruction. There is circumferential wall thickening and mild pericolonic inflammatory stranding with prominent lymph nodes involving the distal ascending colon, which may represent colitis; however, an underlying lesion is not excluded. Recommend direct visualization when clinically appropriate. 2. Right lower lobe pulmonary nodule measuring 4 mm. If the patient is at increased risk for lung cancer, consider repeat chest CT in 12 months according to Fleischner Society recommendations. Please note that all CT scans at this facility use dose modulation, iterative reconstruction, and/or weight-based dosing when appropriate to reduce radiation dose to as low as reasonably achievable. Dictated by Cindy Dang MD @ 05/11/2023 12:03:23 PM (Electronically Signed) Ordering Physician: Mark Herrera M.D. Date of Service: 05/11/23 Procedure(s): XR abdomen 1V Accession Number(s): [id number] cc: Brii COELLO CNP; Mark Herrera M.D.~ For Patients: As a result of the Cures Act, medical imaging exams and procedure reports are released immediately into your electronic medical record. You may view this report before your referring provider. If you have questions, please contact your health care provider. INDICATION: NG tube placement. COMPARISON: Abdominal radiographs 05/11/2023 at 8:55 a.m. TECHNIQUE: Abdomen 1 view. FINDINGS: Enteric tube with tip and side hole projected over the stomach. Few mildly prominent small bowel loops in the upper abdomen. No free air under the hemidiaphragms. The visualized lungs are clear. Normal heart size. Degenerative changes of the spine. IMPRESSION: 1. Enteric tube with tip and side hole projected over the stomach. 2. Few mildly prominent small bowel loops in the upper abdomen. Dictated by Opal Blue MD @ 05/11/2023 2:58:03 PM (Electronically Signed) Ordering Physician: Bronwyn Gamboa M.D. Date of Service: 05/14/23 Procedure(s): FL enema w gastrografin Accession Number(s): [id number] cc: MODE ROYAL, Brii Browne; Bronwyn Gamboa M.D.~ For Patients: As a result of the Cures Act, medical imaging exams and procedure reports are released immediately into your electronic medical record. You may view this report before your referring provider. If you have questions, please contact your health care provider. Technique: Single contrast water soluble enema examination performed. Fluoroscopy time 1 minute 43 seconds. Indication: COLONIC OBSTRUCTION Comparison: CT 05/11/2023 Findings: High-grade obstruction at the hepatic flexure within line of contrast extending through the mass into the right colon. Mild residual stool present. No perforation. 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 Dictated by Mark Najera MD @ 05/14/2023 9:55:07 AM (Electronically Signed) Ordering Physician: Bronwyn Gamboa M.D. Date of Service: 05/14/23 Procedure(s): CT chest w con Accession Number(s): [id number] cc: Brii COELLO CNP; Cooper,Bronwyn P M.D.~ For Patients: As a result of the 21st Century Cures Act, medical imaging exams and procedure reports are released immediately into your electronic medical record. You may view this report before your referring provider. If you have questions, please contact your health care provider. INDICATION: .RECENT DIAGNOSIS OF COLON CANCER, CHECKING FOR METS TO CHEST TECHNIQUE: CT chest was acquired with 75 cc Isovue 370 IV contrast. COMPARISON: None. FINDINGS: Lungs and Airways: 3 millimeter left apical subpleural indeterminate pulmonary nodule, likely intrapulmonary lymphoid tissue. Axial image 19. A few additional scattered sub-6 millimeter indeterminate pulmonary nodules also predominantly abutting the fissures and likely reflecting intrapulmonary lymphoid tissue. No mass or consolidation. No endoluminal lesion. Heart and Mediastinum: The visualized portions of the thyroid are normal. No axillary or supraclavicular lymphadenopathy. No mediastinal, hilar or retrocrural lymphadenopathy. Normal heart size. Normal caliber aorta. Atherosclerotic calcifications. Pleura: The pleural spaces are normal. Abdomen: No acute process in the upper abdomen. Bones and soft tissues: The skeletal structures and soft tissues of the chest wall are unremarkable. Enteric tube extending off the field of view into the expected location of the gastric body. IMPRESSION: 1. No discrete metastatic disease within the chest. No intrathoracic mass or consolidation. 2. A few scattered sub-6 millimeter indeterminate pulmonary nodules. While these are favored to reflect intrapulmonary lymphoid tissue, recommend attention on follow-up exams per clinical protocol. Please note that all CT scans at this facility use dose modulation, iterative reconstruction, and/or weight-based dosing when appropriate to reduce radiation dose to as low as reasonably achievable. Dictated by Mark Rodgers MD @ 05/14/2023 4:16:28 PM (Electronically Signed) Labs on day of discharge: Labs from last 24 hours 05/20/23 05:44 WBC 9.86 RBC 4.22 Hgb 12.6 Hct 36.9 MCV 87 MCH 30 MCHC 34 Plt Count 320 Sodium 136 Potassium 3.3 L Chloride 99 Carbon Dioxide 25 Anion Gap 12 BUN 6 L Creatinine 0.6 Estimated Creat Clear 37.01 Estimated GFR 88 Glucose 126 H Calcium 9.3 Discharge Plan Discharge Disposition: Home, Self-Care Date of Admission: 05/11/23 14:57 Attending Provider on Discharge: Toya Davila Consulting Providers: Bronwyn Gamboa Primary Care Provider: Browne,Brii M Condition: Stable Anticipated Discharge Date/Time: 05/20/23 09:12 Discharge Medications: New hydrocodone-acetaminophen 5-325 mg Tablet 1 tab PO Q6H PRN (Reason: Pain) Qty: 15 0RF enoxaparin 40 mg/0.4 mL Syringe 40 mg subcut Q24H 30 Days Qty: 12 0RF Continued cholecalciferol (vitamin D3) 50 mcg (2,000 unit) tablet 2,000 unit PO DAILY Ocuvite with Lutein 300 mcg-200 mg-27 mg-2 mg tablet 1 tab PO DAILY magnesium oxide 400 mg (241.3 mg magnesium) tablet 800 mg PO DAILY potassium gluconate 500 mg (83 mg) tablet 500 mg PO DAILY omega-3 acid ethyl esters 1 gram capsule 1 cap PO DAILY multivitamin Tablet 1 tab PO QAM B-complex with vitamin C Capsule 1 cap PO DAILY sennosides-docusate sodium [Senna with Docusate Sodium] 8.6-50 mg tablet 2 tab-cap PO BID PRN (Reason: constipation) 30 Days Qty: 120 0RF diclofenac sodium 0.1 % drops 1 drp ophthalmic (eye-left) QID Discharge Orders: Discharge Order (Routine); Ordered 05/20/23 Ordered By: Toya Davila Patient Education: Hydrocodone/Acetaminophen (By mouth), Enoxaparin (By injection), Colectomy (DC) Additional Instructions: Wound care: Your sutures are under the skin and will dissolve over time. Leave steri strips (white bandages) over incisions until they fall off (or remove after 7 days). OK to shower but avoid bathing, soaking or swimming for 2 weeks. Pat the incisions dry. No need to wash or scrub the area. Apply ice to the area as needed for swelling. It is also OK to use a heating pad if this provides more comfort to you. Pain control: You were prescribed a pain medication. Take this for severe pain only. Otherwise, take acetaminophen as directed on the packaging. You were also prescribed an injection of a low-dose blood thinner - this is to prevent blood clots in the first month after surgery. Nursing will show you how to administer this to yourself every day. Follow-up Follow up with Dr. Gamboa in 2 weeks Please call if you are experiencing severe pain, nausea, vomiting, difficulty urinating, fever or have not had bowel movement in 4 days after discharge. Activity Level: No strenuous activity Activity Detail: no lifting more than 20 pounds for 4 weeks Discharge Diet: Regular Follow Up Appointments: Bronwyn Gamboa MD [Staff Physician] - 05/29/23 11:45 am ([facility]) Biri Browne APRN, CNP [Primary Care Provider] - 05/22/23 8:30 am ([facility], check potassium) Forms: BAUNAT Info Instructions
--- NOTE | 2023-05-20 10:53 | PM.DS1 ---
DS: Providers Provider Date Seen: 05/20/23 Date of admission: 05/11/23 14:57 Primary care physician: Brii Browne, DRY WALL APPLICATOR, DIRECTOR OF LABOR AND DELIVERY Admitting Clinician: Harry Christie MD Consults: 05/11/23 16:54 Consult to Physician [CONS] Routine Comment: Consulting Provider: Bronwyn Gamboa Has provider been notified: Yes 05/16/23 16:43 Consult to Nutrition [CONS] Routine Comment: Reason for consult:: Nutritional Consult Comment: frail, has been NPO x 6 days Consult to Occupational Therapy [CONS] Routine Comment: Reason(s) for OT Consult:: ADLs Prior to Discharge Any Restrictions?:: No Restrictions Consult to Physical Therapy [CONS] Routine Comment: Reason(s) for PT Consult:: Evaluate and Treat Any Restrictions?:: No Restrictions Attending Physician on discharge: Harry Christie MD DS: Summary Hospital Course Hospital Course: Patient is an 82-year-old female who presented with evidence of a colonic obstruction. CT scan demonstrates circumferential wall thickening and prominent lymph nodes, concerning for a localized area of colitis versus obstructing mass. Patient was able to successfully undergo a colonoscopy on 05/14/2023, which demonstrated an apple-core lesion just proximal to the hepatic flexure. 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 A cancer workup was performed with CT chest showing no evidence of metastatic disease, but diffuse scattered sub 6 mm intermediate pulmonary nodules. She underwent a laparoscopic right hemicolectomy on 05/16/23. Postoperatively she did demonstrate return of bowel function was able to advance her regular diet. PT and OT evaluated the patient, and deemed her safe for discharge to home. At the time of discharge patient was tolerating regular diet, Ambulating without difficulty, pain was well controlled on oral medication, she had demonstrated return of bowel function and was voiding without difficulty. She was discharged with a course of prophylactic Lovenox. Time Spent with Patient Time attestation: Total time spent providing and/or coordinating discharge services: Exam Narrative: Exam Narrative: General: Alert and oriented, no acute distress Abdomen: Soft, nontender nondistended. Steri-Strips clean/dry/intact Const: Vital Signs, click to edit/add: Vital Signs - 24 hr 05/19/23 11:00 05/19/23 15:30 05/19/23 15:50 Temperature 97.9 F 98.7 F Pulse Rate [Left P ulse Oximeter] 89 87 Respiratory Rate 18 16 16 Blood Pressure [Le ft Arm] 144/73 H Blood Pressure [Ri ght Arm] 150/79 H Pulse Oximetry 97 93 90 Oxygen Delivery Me thod Room Air Room Air Oxygen Flow Rate 05/19/23 19:00 05/19/23 23:00 05/19/23 23:00 Temperature 98.9 F 97.9 F Pulse Rate [Left P ulse Oximeter] 97 81 Respiratory Rate 16 16 16 Blood Pressure [Le ft Arm] Blood Pressure [Ri ght Arm] 152/80 H 152/87 H Pulse Oximetry 98 98 98 Oxygen Delivery Me thod Room Air Room Air Room Air Oxygen Flow Rate 0 05/20/23 03:00 05/20/23 08:01 05/20/23 08:01 Temperature 99.2 F 97.4 F L Pulse Rate [Left P ulse Oximeter] 90 83 Respiratory Rate 16 16 18 Blood Pressure [Le ft Arm] 111/72 Blood Pressure [Ri ght Arm] 142/79 H Pulse Oximetry 97 98 98 Oxygen Delivery Me thod Room Air Room Air Room Air Oxygen Flow Rate DS: Data Data Completed and Pending Labs on day of discharge: Labs from last 24 hours 05/20/23 05:44 WBC 9.86 RBC 4.22 Hgb 12.6 Hct 36.9 MCV 87 MCH 30 MCHC 34 Plt Count 320 Sodium 136 Potassium 3.3 L Chloride 99 Carbon Dioxide 25 Anion Gap 12 BUN 6 L Creatinine 0.6 Estimated Creat Clear 37.01 Estimated GFR 88 Glucose 126 H Calcium 9.3 Discharge Plan Discharge Disposition: Home, Self-Care Date of Admission: 05/11/23 14:57 Attending Provider on Discharge: Toya Davila Consulting Providers: Bronwyn Gamboa Primary Care Provider: Brii Browne Condition: Stable Anticipated Discharge Date/Time: 05/20/23 09:12 Discharge Medications: New hydrocodone-acetaminophen 5-325 mg Tablet 1 tab PO Q6H PRN (Reason: Pain) Qty: 15 0RF enoxaparin 40 mg/0.4 mL Syringe 40 mg subcut Q24H 30 Days Qty: 12 0RF Continued cholecalciferol (vitamin D3) 50 mcg (2,000 unit) tablet 2,000 unit PO DAILY Ocuvite with Lutein 300 mcg-200 mg-27 mg-2 mg tablet 1 tab PO DAILY magnesium oxide 400 mg (241.3 mg magnesium) tablet 800 mg PO DAILY potassium gluconate 500 mg (83 mg) tablet 500 mg PO DAILY omega-3 acid ethyl esters 1 gram capsule 1 cap PO DAILY multivitamin Tablet 1 tab PO QAM B-complex with vitamin C Capsule 1 cap PO DAILY sennosides-docusate sodium [Senna with Docusate Sodium] 8.6-50 mg tablet 2 tab-cap PO BID PRN (Reason: constipation) 30 Days Qty: 120 0RF diclofenac sodium 0.1 % drops 1 drp ophthalmic (eye-left) QID Discharge Orders: Discharge Order (Routine); Ordered 05/20/23 Ordered By: Toya Davila Patient Education: Hydrocodone/Acetaminophen (By mouth), Enoxaparin (By injection), Colectomy (DC) Additional Instructions: Wound care: Your sutures are under the skin and will dissolve over time. Leave steri strips (white bandages) over incisions until they fall off (or remove after 7 days). OK to shower but avoid bathing, soaking or swimming for 2 weeks. Pat the incisions dry. No need to wash or scrub the area. Apply ice to the area as needed for swelling. It is also OK to use a heating pad if this provides more comfort to you. Pain control: You were prescribed a pain medication. Take this for severe pain only. Otherwise, take acetaminophen as directed on the packaging. You were also prescribed an injection of a low-dose blood thinner - this is to prevent blood clots in the first month after surgery. Nursing will show you how to administer this to yourself every day. Follow-up Follow up with Dr. Gamboa in 2 weeks Please call if you are experiencing severe pain, nausea, vomiting, difficulty urinating, fever or have not had bowel movement in 4 days after discharge. Activity Level: No strenuous activity Activity Detail: no lifting more than 20 pounds for 4 weeks Discharge Diet: Regular Follow Up Appointments: Bronwyn Gamboa MD [Staff Physician] - 05/29/23 11:45 am ([facility]) Brii Browne APRN, DIRECTOR OF LABOR AND DELIVERY [Primary Care Provider] - 05/22/23 8:30 am ([facility], check potassium) Forms: [facility] Info Instructions
[2023-05-20] MEDS: ENOXAPARIN 40 MG/0.4 ML INJ SUBCUT (11:37)
--- NOTE | 2023-05-20 11:55 | PC.NURSE ---
Discharge note: The patient discharged home with her daughter @ [phone] via wheelchair. All discharge paperwork was reviewed and signed by the patient, the patients belongings were sent with the patient as well. The patient was educated thoroughly on how to preform her Lovenox injections... prior to discharge she preformed the injection herself in front of me. She completed the injection herself with no issues. Follow up appointments were made. Lovenox injection to be filled tomorrow by [facility] in [place] for the patients daughter to quill picking machine operator. All questions were answered. Patient discharged in great condition.. no N/V and minor stomach pain.
== END 2023-05-20 11:47 | disposition home or self-care (01) | DRG 330 ==
LOC: ED 14:14 → MEDSURG 15:08
PROVIDERS: Family Medicine; Internal Medicine; Physician Assistant; Surgery; Admitting Provider Family Medicine; Emergency Provider Family Medicine; PCP Nurse Practitioner Family; Visit Provider Family Medicine
PROC: 0DTF4ZZ Resection of Right Large Intestine, Percutaneous Endoscopic Approach (ICD-10-PCS; principal; 2023-05-16 11:30)
DX: C18.2 Malignant neoplasm of ascending colon (principal); C77.2 Secondary and unspecified malignant neoplasm of intra-abdominal lymph nodes; K56.691 Other complete intestinal obstruction; R47.01 Aphasia; K62.1 Rectal polyp; D12.6 Benign neoplasm of colon, unspecified; D12.8 Benign neoplasm of rectum; K57.30 Diverticulosis of large intestine without perforation or abscess without bleeding; R10.9 Unspecified abdominal pain; R91.8 Other nonspecific abnormal finding of lung field; R91.1 Solitary pulmonary nodule; E87.6 Hypokalemia; K21.9 Gastro-esophageal reflux disease without esophagitis; F41.9 Anxiety disorder, unspecified; Z87.820 Personal history of traumatic brain injury; E78.5 Hyperlipidemia, unspecified; Z85.828 Personal history of other malignant neoplasm of skin; Z87.891 Personal history of nicotine dependence
CPT/HCPCS: 00790; 00811; 36415; 45380; 45381; 45385; 71260; 74018; 74019; 74177; 74270; 76942; 80048; 80076; 82378; 82962; 83605; 83690; 83735; 84100; 84132; 84439; 84443; 84481; 85025; 85027; 85610; 85651; 86140; 88305; 88309; 88341; 88342; 93005; 97116; 97161; 97165; 97530; 97535; 99100; 99284; A9270; C9113; C9290; J0330; J0665; J1100; J1170; J1335; J1650; J1885; J2270; J2405; J2704; J3010; J3475; J3480; J3490; J7030; J7042; J7120; Q9967

== ENCOUNTER 2023-05-22 09:22 | Outpatient (CLI) | payer MEDICARE, BC, SELFPAY | END 2023-05-22 09:23 | disposition home or self-care (01) | LOC: KYNREF 09:23 | PROVIDERS: PCP Nurse Practitioner Family; Visit Provider Nurse Practitioner Family | DX: E87.6 Hypokalemia (principal) | CPT/HCPCS: 84132 ==

== ENCOUNTER 2023-06-18 14:21 | Outpatient (RCR) | payer MEDICARE, BC, SELFPAY | END 2023-10-16 23:59 | disposition home or self-care (01) | PROVIDERS: PCP Nurse Practitioner Family; Visit Provider Surgery | DX: Z53.20 Procedure and treatment not carried out because of patient's decision for unspecified reasons (principal) ==

== ENCOUNTER 2023-07-19 09:19 | Outpatient (CLI) | payer MEDICARE, BC, SELFPAY | END 2023-07-19 09:20 | disposition home or self-care (01) | LOC: KYNREF 09:19 | PROVIDERS: PCP Nurse Practitioner Family; Visit Provider Nurse Practitioner Family | DX: E78.5 Hyperlipidemia, unspecified (principal) | CPT/HCPCS: 80061 ==

== ENCOUNTER 2023-08-28 14:59 | Outpatient (CLI) | payer MEDICARE, BC, SELFPAY ==
[2023-08-28 22:06] LABS: SARS PCR* Negative SARS-CoV-2 (Negative)
== END 2023-08-28 15:00 | disposition home or self-care (01) ==
LOC: KYNREF 15:00
PROVIDERS: PCP Nurse Practitioner Family; Visit Provider Nurse Practitioner Family
DX: Z11.52 Encounter for screening for COVID-19 (principal); R05.9 Cough, unspecified
CPT/HCPCS: 87635

== ENCOUNTER 2023-10-16 10:23 | Outpatient (CLI) | payer MEDICARE, BC, SELFPAY ==
[2023-10-16 10:59] LABS: Creatinine* 0.6 mg/dL (0.5-1.5); Estimated Glomerular Filt Rate 88 ml/min
--- NOTE | 2023-10-16 11:00 | CT_ITS ---
Patient: CALEB ESCALONA Facility:?[facility] Patient ID:?[id number] Site Patient ID:?[id number]. Site :?[id number] Study:?CT-Chest/Abd/Pelvis W/ 69CC ISOVUE 370-10/16/2023 11:43:43 AM Ordering Physician:CT Final Report: Indication: Colon cancer Technique: CT Chest/Abd/Pelvis W/ 69CC ISOVUE 370 Please note that all CT scans at this facility use dose modulation, iterative reconstruction, and/or weight-based dosing when appropriate to reduce radiation dose to as low as reasonably achievable. Comparison: 05/14/2023, 05/11/2023 Findings: In the chest, visualized thyroid is normal. Atherosclerotic changes are present. No pericardial effusion. Small hiatal hernia. No axillary, mediastinal or hilar adenopathy. Calcific tendinitis at the right shoulder. 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 Stable nodule within the right lower lobe anteriorly measuring 4.3 millimeters. Mild dependent areas of scarring/atelectasis. Bochdalek`s hernia containing fat on the left. A few scattered smaller nodules are present elsewhere including a 3.8 millimeter nodule in the left upper lobe. No infiltrate or edema. No effusion or pneumothorax. In the abdomen, there is no suspicious intrahepatic mass. The gallbladder is within normal limits. Normal spleen. The pancreas is normal. Normal adrenal glands. The kidneys are within normal limits with the exception of an incidental exophytic cyst arising from the posterior right kidney, as before. Postop changes of right hemicolectomy. Mildly enlarged right lower quadrant mesenteric lymph nodes are present measuring up to 9 millimeters. Curvilinear areas of density within the right lower quadrant mesenteric fat also present. No fluid collection or free air. Resolution of the previously noted obstruction. In the pelvis, the bladder is distended. The uterus and adnexa are within normal limits. No enlarged pelvic or inguinal lymph nodes. Degenerative changes are present within the spine. No fracture deformity. No suspicious osseous lesion. Degenerative changes are present at both hip joints. Chronic osteitis pubis. Impression: Postoperative changes of right hemicolectomy. Mildly prominent right lower quadrant mesenteric lymph nodes are present. Stable bilateral pulmonary nodules. No intrahepatic mass. Please note that all CT scans at this facility use dose modulation, iterative reconstruction, and/or weight-based dosing when appropriate to reduce radiation dose to as low as reasonably achievable. Dictated by Mark Najera MD @ 10/16/2023 12:59:35 PM Signed by:?Mark Najera MD @10/16/2023 12:59:35 PM (Electronic Signature)
== END 2023-10-16 10:24 | disposition home or self-care (01) ==
LOC: CT 10:23
PROVIDERS: PCP Nurse Practitioner Family; Visit Provider Internal Medicine Hematology & Oncology
DX: C18.9 Malignant neoplasm of colon, unspecified (principal); R91.8 Other nonspecific abnormal finding of lung field; C77.2 Secondary and unspecified malignant neoplasm of intra-abdominal lymph nodes
CPT/HCPCS: 36415; 71260; 74177; 82565; Q9967

== ENCOUNTER 2023-10-23 09:10 | Outpatient (CLI) | payer MEDICARE, BC, SELFPAY | END 2023-10-23 09:11 | disposition home or self-care (01) | LOC: NFLDREF 10-24 07:18 | PROVIDERS: PCP Nurse Practitioner Family; Referring Provider Nurse Practitioner Family; Visit Provider Nurse Practitioner Family | DX: E78.5 Hyperlipidemia, unspecified (principal); C18.9 Malignant neoplasm of colon, unspecified; C77.2 Secondary and unspecified malignant neoplasm of intra-abdominal lymph nodes; Z51.81 Encounter for therapeutic drug level monitoring | CPT/HCPCS: 80053; 80061; 80076; 82378; 85025 ==

== ENCOUNTER 2023-10-24 11:00 | Outpatient (RCR) | payer MEDICARE, BC, SELFPAY ==
--- NOTE | 2023-06-05 12:49 | ONC.NURNOTE ---
Capecitabine: [employer] Set [employer]rip phoned patient to provide information about cost of capecitabine RX it will be $40 /cycle from [facility] and $90/cycle from [facility] patient informed repairer typewriter that she has talked with family and friends and they have advised her to not take the 6 months of capecitabine treatment repairer typewriter offered to do some education about the medication Rolanda clearly stated that she did not want to pursue further treatment she is waiting for date of the PET Scan and patient was informed that she should plan to come in see Dr Hurd to review her PET and discuss her decision to not pursue adjuvant treatment for her colon cancer
--- NOTE | 2023-06-07 13:22 | ONC.NURNOTE ---
Pt called to say she received a call from her pharmacy that her prochlorperazine is ready to product picker; she is not going to pick it up at this time, as she is not taking the chemo pill. Reviewed with pt not to cancel prescription, but ok to not product picker at this time. She follows up with Dr. Hurd in 3 weeks; will update navigator.
== END 2023-11-26 23:59 | disposition home or self-care (01) ==
LOC: CCIC 11:00
PROVIDERS: PCP Nurse Practitioner Family; Visit Provider Internal Medicine Hematology & Oncology
DX: C18.9 Malignant neoplasm of colon, unspecified (principal); C77.2 Secondary and unspecified malignant neoplasm of intra-abdominal lymph nodes
CPT/HCPCS: 99202; 99205; 99212; 99213; 99214; 99215; G0463

== ENCOUNTER 2024-01-14 09:37 | Outpatient (CLI) | payer MEDICARE, BC, SELFPAY ==
--- OUTSIDE RECORDS SUMMARY | 2024-01-14 09:39 | XMS_ITS | Encounter Summary ---
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 [address] [place] [address] [facility] Region Referral ID Status Reason Start Date Expiration Date Visits Re quested Visits Authorized [id number] Closed 02/23/2023 02/23/2024 3 3 Encounter Details Date Type Department Care Team (Latest Contact Info) Description 12/10/2023 12:41 PM CDT - 12/10/2023 11:59 PM CDT Hospital Encounter Outpatient Procedure Center in [place] [address] [place] [address] Brock Bailey M.D. 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 No 07/31/2023 Humiliation, Afraid, Rape, and Kick questionnair e Answer Date Recorded Within the last year, have y ou been afraid of your partner or ex-partner? No 05/13/2021 Within the last year, have y ou been humiliated or emotionally abused in other ways by your partner or ex-partner? Patient declined 05/13/2021 Within the last year, have y ou been kicked, hit, slapped, or otherwise physically hurt by your partner or ex-partner? Patient declined 05/13/2021 Within the last year, have y ou been raped or forced to have any kind of sexual activity by your partner or ex-partner? Patient declined 05/13/2021 Social Connection and Isolation Panel [NHANES] A nswer Date Recorded In a typical week, how many times do you talk on the phone with family, friends, or neighbors? Patient declined 05/13/2021 How often do you get togethe r with friends or relatives? Three times a week 05/13/2021 How often do you attend chur ch or samaritan services? Patient declined 05/13/2021 Do you belong to any clubs o r organizations such as confucianism groups, unions, fraternal or athletic groups, or school groups? Patient declined 05/13/2021 How often do you attend meet ings of the clubs or organizations you belong to? Patient declined 05/13/2021 Are you , , di vorced, , never , or living with a partner? 05/13/2021 AUDIT-C Answer Date Recorded Q1: How often do you have a drink containing alc ohol? 2-4 times a month 05/13/2021 Q2: How many drinks containi ng alcohol do you have on a typical day when you are drinking? 1 or 2 05/13/2021 Q3: How often do you have si x or more drinks on one occasion? Never 05/13/2021 Overall Financial Resource Strain (CARDIA) Answe r Date Recorded How hard is it for you to pa y for the very basics like food, housing, medical care, and heating? Not hard at all 05/13/2021 PHQ-2 Answer Date Recorded PHQ-2 Score 0 10/14/2020 [facility] - Occupational Stress Questionnaire Answer Date Recorded Do you feel stress - tense, restless, nervous, or anxious, or unable to sleep at night because your mind is troubled all the time - these days? Only a little 05/13/2021 Exercise Vital Sign Answer Date Recorde d On average, how many days pe r week do you engage in moderate to strenuous exercise (like a brisk walk)? 2 days 07/31/2023 On average, how many minutes do you engage in exercise at this level? 40 min 07/31/2023 Hunger Vital Sign Answer Date Recorded Within the past 12 months, y ou worried that your food would run out before you got the money to buy more. Patient declined Within the past 12 months, t he food you bought just didn't last and you didn't have money to get more. Patient declined PRAPARE - Transportation Answer Date Re corded In the past 12 months, has l ack of transportation kept you from medical appointments or from getting medications? No 07/07 In the past 12 months, has l ack of transportation kept you from meetings, work, or from getting things needed for daily living? No 07/31/2023 Nutrition Answer Date Recorded Nutrition: EVOO Fat Source Yes 07/31 On average, how many serving s of fruits and vegetables do you eat per day (serving size is equal to 1 cup or approximately the size of a tennis ball)? 3-5 07/31/2023 Dental Answer Date Recorded Dental: Regular Dentist Yes 08/06/19 Employment Answer Date Recorded Employment status Retired 07/31/2023 Housing Stability Answer Date Recorded What is your living situation today? Patient dec lined 07/31/2023 Education Answer Date Recorded What is the highest level of school you have completed or the highest degree you have received? 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 biotin 1 mg tablet Daily cholecalciferol, vitamin D3, (cholecalciferol) 1,000 Unit tablet Take 1,000 Units by mouth daily. diclofenac (VOLTAREN) 0.1 % ophthalmic solution Administer 1 drop into the left eye 4 (four) times a day. 5 mL 1 04/12/2023 MAGNESIUM ORAL Take by mouth daily. omega 4-zij-afx-fish oil 1,000 mg (120 mg-180 mg) capsule Take by mouth daily. potassium 99 mg tablet Daily simvastatin (ZOCOR) 20 mg tablet TAKE 1 TABLET(20 MG) BY MOUTH AT BEDTIME 90 tablet 12/16/2021 vitamin A,C,Z-tmpbpt-lwhroalk (OCUVITE W/LUTEIN) 1,000 Unit-200 mg-60 Unit-2 mg tablet Take 1 tablet by mouth 2 (two) times a day. documented as of this encounter Plan of Treatment Upcoming Encounters Date Type Department Care Team (Late st Contact Info) Description 02/14/2024 10:20 AM CDT Appointment Outpatient Procedure Center in [address] [address] Brock Bailey M.D. 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 Patient consent obtained. 08/03/2023. Time Out Confirmed correct patient, procedure, site, and patient consented. Anesthesia Topical anesthesia was used. Pre/Post Procedure prep and meds used were Celluvisc 1-10 drops, Povidone 5% 1-10 drops, Povidone 10% swabs x 3 to lids and lashes, Proparacaine 0.5% 1-10 drops, Tetracaine 0.5% 1-10 drops. Procedure Details Injection: 2.5 mg bevacizumab 25 mg/mL ??Route: intravitreal, Site: Left Eye ??[facility]: 42498-449-66 Balanced salt solution irrigation to injected eye after the injection was Done. Hand motion was present. Count fingers was correct. Reviewed instructions and patient verbalizes understanding. Ancillary Staff Ancillary Staff: Sherie Slater RN and Tricia Gan RN. Notes Patient oriented to outpatient procedure center. ??Reviewed process for scheduled procedure, and pain management including pain scale. Patient declines written post-procedure material or previously received brochure. ?? Information reviewed and understanding assessed by teach-back. ??Follow-up appointments discussed and return schedule given if requested. Avastin L eye Lot [id number] Exp 02/18/2024 [facility] [id number] Brock Bailey M.D. 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) documented in this encounter Administered Medications Inactive Administered Medications - up to 3 most recent administrations Medication Order MAR Action Action Date Dose Rate Site bevacizumab intraocular injection 2.5 mg (AVASTIN) 2.5 mg, intravitreal, One-Time Injection, Starting on Sun12/10/23 at 1321, For 1 dose Given 12/10/2023 1:21 PM CDT 2.5 mg Left Eye documented in this encounter Additional Health Concerns Assessment Noted Time PHQ-9 Depression Total Score: 0 09/23/19 19 10:58 

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
--- OUTSIDE RECORDS SUMMARY | 2024-01-14 09:39 | XMS_ITS | Clinical Summary ---
Author Organization [facility] Address [place], [place] [address] Care Team Providers Care Retail Loan Originator Name Role Phone Jeancarlos Oquendo Primary Care Provider [phone] Allergies Active Allergy Reactions Criticality Noted Date Comments Latex *Unknown 05/09/2020 Per note from [facility] pt only reacts to latex powdered gloves Medications Medication Sig Dispensed Refills Start Date End Date Status FOLIC ACID/MULTIVIT-MIN/LUTE IN (CENTRUM SILVER ORAL) Take 1 tablet by mouth once daily. Active VIT A,C & E/LUTEIN/MINERALS (OCUVITE WITH LUTEIN ORAL) Take 1 tablet by mouth once daily. Active MAG ASP/PYRIDOXINE HCL/ZINC (ZINC MAGNESIUM ASPARTATE ORAL) Take 1 tablet by mouth once daily. Active OMEGA-3 FATTY ACIDS/FISH OIL (OMEGA 3 FISH OIL ORAL) Take 1 tablet by mouth once daily. Active simvastatin (ZOCOR) 20 mg tablet Take 20 mg by mouth at bedtime. Active Immunizations Name Administration Dates Next Due Pneumococcal Poly,23-Valent (Pneumovax) 06/12/20 07 Social History Tobacco Use Types Packs/Day Years Used Date Smoking Tobacco: Former Cigarettes Alcohol Use Standard Drinks/Week Comments No 0 (1 standard drink = 0.6 oz pur e alcohol) Sex and Gender Information Value Date Recorded Sex Assigned at Not on file Gender Identity Not on file Sexual Orientation Not on file Obstetrics History Last Filed [...] 2003 Pneumococcal series for age 65+ (2 of 2 - PCV) 06/12/2008 06/12/2007 COVID-19 vaccine series (2022-24 season) 2023 05/13/2021, 10/02/2020, 09/11/2020 Influenza for age 65+ 04/06/2024 Advance Directives Documents on File Type Date Recorded Patient Report Developer Expl anation Healthcare Directive 03/26/2018 8:03 AM 8 15-18 * Full Code (Latest Code Status on File) Date Activated Date Inactivated Comments 03/25/2015 7:59 AM 03/25/2015 11:57 AM Care Teams Retail Loan Originator Relationship Specialty Start Date End Date Jeancarlos Oquendo PA PCP - General Physician Corncob Pipes Assembler 05/09/20
--- OUTSIDE RECORDS SUMMARY | 2024-01-14 09:39 | XMS_ITS | Encounter Summary ---
Author Organization [facility] Address [address] [place] [address] Care Team Providers Care Dance Master Name Role Phone Elsewhere, Pcp Primary Care Provider Unavailabl e Reason for Referral * Outpatient (Routine) - Authorized Specialty Diagnoses / Procedures Referred By Betzy jimenez Referred To Contact Ophthalmology Brock Bailey M.D. 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 [address] [place] [address] [facility] Region Referral ID Status Reason Start Date Expiration Date V isits Requested Visits Authorized [id number] Authorized 12/07/2023 12/06/2024 3 3 Reason for Visit * Outpatient (Routine) - Closed Specialty Diagnoses / Procedures Referred By Contac t Referred To Contact Ophthalmology Brock Bailey M.D. [address] [place] [address] [facility] Region Referral ID Status Reason Start Date Expiration Date Visits Re quested Visits Authorized [id number] Closed 08/03/2023 08/02/2026 1 1 Encounter Details Date Type Department Care Team (Latest Contact Info) Description 12/07/2023 8:00 AM CDT Office Visit Department of Ophthalmology in [place], [place] [address] [place] [phone] Brock Bailey M.D. 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 Patient declined 05/13/2021 Do you belong to any clubs o r organizations such as orthodox groups, unions, fraternal or athletic groups, [...] Answer Date Recorded PHQ-2 Score 0 10/14/2020 [facility] of Occupat ional Health - Occupational Stress [...] Choose not to disclose 2022 3:32 PM YOUTH NUTRITIONAL MONITOR documented as of this encounter Progress Notes * Brock Bailey M.D. - 12/07/2023 8:00 AM CDT Emma Contreras was seen today for No chief complaint on file. 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 She has had a nice response to Avastin.Then self stopped injections and then 4 months after last injection, SRF returned. Now after resuming, SRF much improved. Discussed she needs continued injections, she understands. Continue comprehensive follow up for stable pterygium. Plan for Injections 12/07/23: Avastin LEFT for CNV next week as planned Follow up for 2 more injections every 8-10 weeks Follow up: 9-12 weeks after the last injection with OCT both eyes (hold injection slot) Injection details: [place] injections or [place] for inj only visits - doesn't want [place] documented in this encounter Miscellaneous Notes * Addendum Note - Doug Ha, C.O.A. - 12/07/2023 8:00 AM CDTAddended by: DOUG HA on: 12/07/2023 11:04 AM Modules accepted: Orders documented in this encounter Plan of Treatment Upcoming Encounters Date Type Department Care Team (Late st Contact Info) Description 02/14/2024 10:20 AM CDT Appointment Outpatient Procedure Center in [address] [phone] Brock Bailey M.D. 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) 1 Occurrences starting 12/07/2023 until 03/08/2025 Scheduled Referrals Name Type Priority Associated Diagnoses Order Schedule Ophthalmology office visit (clinic) Outpatient Referral Routine 1 Occurrences starting 12/07/2023 until 03/08/2025 documented as of this encounter Procedures Procedure Name Priority Date/Time Associated Diagnosis Comments OPTICAL COHERENCE TOMOGRAPHY - MACULA/RETINA - OU - BOTH EYES Routine 12/07/2023 8:00 AM CDT 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 Left Eye OCT device used was Spectralis . Notes See note from visit on 12/07/2023. Brock Bailey M.D. 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
--- OUTSIDE RECORDS SUMMARY | 2024-01-14 09:39 | XMS_ITS ---
Author Organization [facility] Address [address] [place] [address] Care Team Providers Care Dye Expert Name Role Phone Unavailable Unavailable Unavailable Surgery Details Not on file Complications Check Surgery Details section. Procedure Estimated Blood Loss Check Surgery Details section. Procedure Findings Check Surgery Details section. Procedure Specimens Taken Check Surgery Details section.
--- OUTSIDE RECORDS SUMMARY | 2024-01-14 09:39 | XMS_ITS | Encounter Summary ---
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 [address] [place] [address] [facility] Region Referral ID Status Reason Start Date Expiration Date Visits Re quested Visits Authorized [id number] Closed 08/03/2023 08/02/2024 3 3 Encounter Details Date Type Department Care Team (Latest Contact Info) Description 10/15/2023 12:37 PM CDT - 10/15/2023 11:59 PM CDT Hospital Encounter Outpatient Procedure Center in [place] [address] [place] [address] Brock Bailey M.D. 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 Patient declined 05/13/2021 Do you belong to any clubs o r organizations such as mormonism groups, unions, fraternal or athletic groups, [...] Answer Date Recorded PHQ-2 Score 0 10/14/2020 [facility] of Occupat ional [facility] - Occupational Stress Questionnaire Answer Date [...] Choose not to disclose 2022 3:32 PM CHIMNEY BUILDER documented as of this encounter Medications at [...] MAGNESIUM ORAL Take by mouth daily. omega 8-zlz-buf-fish oil 1,000 mg (120 mg-180 mg) capsule Take by mouth daily. potassium 99 mg tablet Daily simvastatin (ZOCOR) 20 mg tablet TAKE 1 TABLET(20 MG) BY MOUTH AT BEDTIME 90 tablet 12/16/2021 vitamin A,C,W-dppxlu-teuiacpf (OCUVITE W/LUTEIN) 1,000 Unit-200 mg-60 Unit-2 mg tablet Take 1 tablet by mouth 2 (two) times a day. documented as of this encounter Plan of Treatment Upcoming Encounters Date Type Department Care Team (Late st Contact Info) Description 02/14/2024 10:20 AM CDT Appointment Outpatient Procedure Center in [address] [phone] Brock Bailey M.D. [address] [place] [address] documented as of this encounter Procedures Procedure [...] 25 mg/mL ??Route: intravitreal, Site: Left Eye ??[facility]: 26426-579-75 Balanced salt solution irrigation to injected eye [...] given if requested. Left Eye Avastin [place]: ??57098-904-75 Lot# [id number] Exp. 11/13/23 No complication. Kiran Bowling MD Brock Bailey M.D. 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) documented in this encounter Administered Medications Inactive Administered Medications - up to 3 most recent administrations Medication Order MAR Action Action Date Dose Rate Site bevacizumab intraocular injection 1.25 mg (AVASTIN) 1.25 mg, intravitreal, One-Time Injection, Starting on Sun10/15/23 at 1337, For 1 dose Given 10/15/2023 1:37 PM CDT 1.25 mg Left Eye documented in this encounter Additional Health Concerns Assessment Noted Time PHQ-9 Depression Total Score: 0 09/23/19 19 10:58 AM CHIMNEY BUILDER documented as of this encounter Care Teams Display Carver Relationship Specialty Start Date End Date Elsewhere, Pcp PCP - General Internal Medicine 12/16/21 documented as of this encounter
--- OUTSIDE RECORDS SUMMARY | 2024-01-14 09:39 | XMS_ITS | Encounter Summary ---
Author Organization [facility] Address [address] [place] [address] Care Team Providers Care District Court Reporter Name Role Phone Elsewhere, Pcp Primary Care Provider Unavailabl e Reason for Visit * Reason Onset Date Comments Return Call Request 11/16/2023 Encounter Details Date Type Department Care Team (Latest Contact Info) Description 11/16/2023 Clinical Communication Department of Ophthalmology in [place], [place] [address] [place] [address] Brock Bailey M.D. [address] [place] [address] Return Call Request Social History Tobacco Use Types Packs/Day Years Used Date Smoking Tobacco: Former Cigarettes Q uit: 1986 Smokeless Tobacco: Never Comments:occasional smoker Alcohol Use Standard Drinks/Week Comments Yes 0 (1 standard drink = 0.6 oz pur e alcohol) 1 or 2 weekly (not always) [facility] Utilities Answer Date Recorded In the past 12 months has [employer], gas, oil, or water [employer] threatened to shut off services in your [...] often do you attend chur ch or congregation services? Patient declined 05/13/2021 Do you belong to any clubs o r organizations such as yazidi groups, unions, fraternal or athletic groups, [...] Answer Date Recorded PHQ-2 Score 0 10/14/2020 [facility] of Occupat ional Health - Occupational Stress [...] Choose not to disclose 2022 3:32 PM GUEST RELATIONS RECEPTIONIST documented as of this encounter Plan of Treatment Upcoming Encounters Date Type Department Care Team (Late st Contact Info) Description 02/14/2024 10:20 AM CDT Appointment Outpatient Procedure Center in [address] [phone] Brock Bailey M.D. [address] [place] [address] documented as of this encounter Visit Diagnoses Not on filedocumented in this encounter Additional Health Concerns Assessment Noted Time PHQ-9 Depression Total Score: 0 09/23/19 19 10:58 AM GUEST RELATIONS RECEPTIONIST documented as of this encounter Care Teams District Court Reporter Relationship Specialty Start Date End Date Elsewhere, Pcp PCP - General Internal Medicine 12/16/21 documented as of this encounter
--- NOTE | 2024-01-14 10:00 | CRLHL7_ITS ---
For Patients: As a result of the Century Cures Act, medical imaging exams and procedure reports are released immediately into your electronic medical record. You may view this report before your referring provider. If you have questions, please contact your health care provider. Indication: Colon cancer Technique: CT Chest/Abd/Pelvis W/ ISOVUE 370 Please note that all CT scans at this facility use dose modulation, iterative reconstruction, and/or weight-based dosing when appropriate to reduce radiation dose to as low as reasonably achievable. Comparison: 10/16/2023 Findings: In the chest, the visualized thyroid gland is normal. Atherosclerotic changes are present. No enlarged lymph nodes within the mediastinum or pola. No enlarged axillary lymph nodes. Degenerative joint disease of both glenohumeral joints with chronic densities associated with the right shoulder joint. Stable 4.3 millimeter nodule right lower lobe, . Also stable 4 millimeter nodule within the left upper lobe posteriorly, 10/24. No infiltrate or edema. Mild dependent atelectasis/scarring. Stable subpleural nodule on the right measuring less than 3 millimeters. No fracture is present. Multilevel degenerative disc disease with discogenic spurring. No suspicious osseous lesion. No fracture. In the abdomen, there is no suspicious intrahepatic mass. Mild fatty infiltration is present. The spleen is within normal limits. Normal adrenal glands. Small simple cyst within the right kidney is present. Left kidney is unremarkable. Normal pancreas. Atherosclerotic changes. No hiatal hernia. Postop changes of partial colectomy. No bowel obstruction. Decreased size of the previously noted lymph node in the right side of the omental fat, now measuring 6.6 millimeters compared to 9 millimeters on the prior study. No abdominal wall hernia. In the pelvis, the bladder is normal. No pelvic mass. No free air or free fluid. No abscess. No pelvic sidewall or inguinal adenopathy. Incidental pars defect noted on the left at L5 without significant spondylolisthesis. Degenerative changes are present. No intrinsic osseous lesion. No vertebral body compression fracture. 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 Impression: Decreased size of the previously noted right mesenteric fat lymph node now measuring 6.6 millimeters compared to 9 millimeters on the prior exam. Stable 4 millimeter nodule within the right lower lobe and 4 millimeter nodule within the left upper lobe. Please note that all CT scans at this facility use dose modulation, iterative reconstruction, and/or weight-based dosing when appropriate to reduce radiation dose to as low as reasonably achievable. Dictated by Mark Najera MD @ 01/14/2024 12:53:08 PM (Electronically Signed)
[2024-01-14 10:25] LABS: Creatinine* 0.6 mg/dL (0.5-1.5); Estimated Glomerular Filt Rate 88 ml/min
== END 2024-01-14 09:38 | disposition home or self-care (01) ==
LOC: CT 09:37
PROVIDERS: PCP Nurse Practitioner Family; Visit Provider Internal Medicine Hematology & Oncology
DX: C18.9 Malignant neoplasm of colon, unspecified (principal); C77.2 Secondary and unspecified malignant neoplasm of intra-abdominal lymph nodes; R91.8 Other nonspecific abnormal finding of lung field
CPT/HCPCS: 36415; 71260; 74177; 82565; Q9967

== ENCOUNTER 2024-01-21 14:00 | Emergency (ER) | payer MEDICARE, BC, SELFPAY ==
[2024-01-21] VITALS (17 sets, daily range): BP systolic 115–147; BP diastolic 61–76; PULSE 56–70; RESP 16; TEMP 36.1; O2SAT 93–100
--- NOTE | 2024-01-21 15:18 | ED.GENADULT ---
HPI - General Adult General Time Seen by Provider: 15:18 Date Seen: 01/21/24 Chief complaint: Dizziness/Vertigo Stated complaint: Neck pain, dizziness Time Seen by Provider: 01/21/24 15:11 Source: patient, RN notes reviewed and old records reviewed Mode of arrival: ambulatory Limitations: no limitations History of Present Illness HPI narrative: This 83-year-old female is ambulatory into the ED of her own accord with concern of neck pain. She describes muscular soreness that happens in her neck. She never has any pain shooting into her arms from her neck. She feels or strength in her arms is good. She endorses a neck injury back in 1976, perhaps there was a fracture, was also accompanied by what sounds to be a brain injury. She states she laid in the hospital with an ear coma for about 5 days. Since then she has had neck problems. She also describes other injuries in falls aggravating her neck. She recently stumbled and had a fall to the left side. She states she fell more on her left side, did not hit her head or injure her neck per se but feels like she jammed her neck. She is worried that she might have a hairline fracture in there. She has chronic pain in her neck, is not worse. She is concerned that she is going on a plane in a week and does not want to end up in a hospital somewhere with neck issues. See that patient has had a history of colon cancer that was resected, was not doing other treatments. Patient has had a history of migraine headaches with her traumatic brain injury per report, no headache at this time. Since 2019, she is suffered from bouts of vertigo. She states if she sits up, turns too quickly, has quick head movements, will get vertigo. She does see a chiropractor and she states her current 1 is extremely gentle. It does not sound like there are any forced or strong adjustments. She states she does a lot of massage and gentle treatments. She states this chiropractor is the most gentle 1 she has ever been to. Related Data Home Medications ?Medication ?Instructions ?Recorded ?Confirmed B-complex with vitamin C 1 cap PO DAILY 03/03/22 12/13/23 cholecalciferol (vitamin D3) 50 2,000 unit PO DAILY 03/03/22 12/13/23 mcg (2,000 unit) tablet omega-3 acid ethyl esters 1 gram 1 cap PO DAILY 03/03/22 12/13/23 capsule potassium gluconate 500 mg (83 mg) 500 mg PO DAILY 03/03/22 12/13/23 tablet vit A 300 mcg-C 200 mg-E 27 1 tab PO DAILY PRN 05/30/23 12/13/23 mg-lutein 2 mg and minerals tablet (Ocuvite with Lutein) acetaminophen 500 mg tablet 500 mg PO Q6H PRN 06/27/23 12/13/23 (Tylenol Extra Strength) calcium carb, gluc 500 mg tab PO .qd 10/24/23 12/13/23 calcium-magnesium gluc, oxide 250 mg tablet (Calcium Magnesium) magnesium oxide 400 mg (241.3 mg 400 mg PO DAILY 10/24/23 12/13/23 magnesium) tablet Previous Rx's ?Medication ?Instructions ?Recorded capecitabine 500 mg tablet (Xeloda) 1,500 mg (3 x 500 mg) PO BID #84 05/30/23 tabs omeprazole 40 mg capsule,delayed 40 mg PO ONCE #90 caps 12/13/23 release Allergies Allergy/AdvReac Type Severity Reaction Status Date / Time No Known Allergies Allergy Verified 12/13/23 10:12 Review of Systems Status of ROS: Reports: 6 or more systems reviewed and unremarkable except as noted in History and below [facility] Medical History Gastroesophageal reflux disease ?K21.9 - Gastro-esophageal reflux disease without esophagitis (ICD-10) Hyperlipidemia ?E78.5 - Hyperlipidemia, unspecified (ICD-10) Health care directive on file ?Z78.9 - Other specified health status (ICD-10) History of traumatic brain injury ?Z87.820 - Personal history of traumatic brain injury (ICD-10) Traumatic brain injury ?S06.9XAA - Unspecified intracranial injury with loss of consciousness status unknown, initial encounter (ICD-10) Hoarseness ?R49.0 - Dysphonia (ICD-10) Cervical pain (neck) ?M54.2 - Cervicalgia (ICD-10) Osteoarthritis of left knee ?M17.12 - Unilateral primary osteoarthritis, left knee (ICD-10) Osteoarthritis of left hip ?M16.12 - Unilateral primary osteoarthritis, left hip (ICD-10) Prolapse of vaginal wall ?N81.10 - Cystocele, unspecified (ICD-10) Primary osteoarthritis ?M19.91 - Primary osteoarthritis, unspecified site (ICD-10) Dermatitis ?L30.9 - Dermatitis, unspecified (ICD-10) Anxiety ?F41.9 - Anxiety disorder, unspecified (ICD-10) History of pterygium ?Z86.69 - Personal history of other diseases of the nervous system and sense organs (ICD-10) History of malignant neoplasm of skin ?Z85.828 - Personal history of other malignant neoplasm of skin (ICD-10) Surgical History History of Mohs micrographic surgery for skin cancer ?Z85.828 - Personal history of other malignant neoplasm of skin (ICD-10) ?Z98.890 - Other specified postprocedural states (ICD-10) S/P right hemicolectomy ?Z90.49 - Acquired absence of other specified parts of digestive tract (ICD-10) 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) ?Z96.651 - Presence of right artificial knee joint (ICD-10) History of varicose vein stripping ?Z98.890 - Other specified postprocedural states (ICD-10) History of tubal ligation ?Z98.51 - Tubal ligation status (ICD-10) History of total knee replacement ?Z96.659 - Presence of unspecified artificial knee joint (ICD-10) History of hysterectomy ?Z90.710 - Acquired absence of both cervix and uterus (ICD-10) History of hemorrhoidectomy ?Z98.890 - Other specified postprocedural states (ICD-10) History of colonoscopy ?Z98.890 - Other specified postprocedural states (ICD-10) History of carpal tunnel release ?Z98.890 - Other specified postprocedural states (ICD-10) History of bunionectomy ?Z98.890 - Other specified postprocedural states (ICD-10) History of appendectomy ?Z90.49 - Acquired absence of other specified parts of digestive tract (ICD-10) Family History Father AAA (abdominal aortic aneurysm) Coronary artery disease Daughter Cancer High blood pressure Sister History of hyperlipidemia High blood pressure Aunt Tuberculosis Social History Narrative: Former smoker, . Lives alone What is your current living situation?: I presently have a place to live Problems where you live: no known problems Problems where you live details: Allergens In the past 12 months, utilities in danger of being shut off: no In past 12 months, lack of transportation kept you from medical appts, meetings, work, or getting things needed for daily living: no In the past 12 mos, have been you worried that your food would run out before you had money to buy more?: never true In the past 12 mos, the food you bought just didn't last and you didn't have money to buy more?: never true Highest level of school completed/degree received: Associate degree: academic program Smoking Status: Former smoker Do you use any of these nicotine containing products: None Second hand tobacco smoke exposure: No How often do you have a drink containing alcohol: monthly or less How many standard drinks containing alcohol do you have on a typical day: 3 or 4 How often do you have six or more drinks on one occasion: Never AUDIT-C Alcohol total score: 2 Non-prescribed substance use: denies use Caffeine: No How often does anyone, including family, friends and others, physically hurt you: never How often does anyone, including family, friends and others, insult or talk down to you: never How often does anyone, including family, friends and others, threaten you with harm: never How often does anyone, including family, friends and others, scream or curse at you: never Little interest or pleasure in doing things: more than half the days Feeling down, depressed, or hopeless: not at all service: No Exam Const: Vital Signs, click to edit/add: Vital Signs - 24 hr 01/21/24 14:06 01/21/24 14:49 01/21/24 14:50 Temperature 96.9 F L Pulse Rate 66 63 Pulse Rate [Pulse Oximeter] 69 Respiratory Rate 16 Blood Pressure 122/70 Blood Pressure [Ri ght Upper Arm] 115/69 Pulse Oximetry 100 94 97 Oxygen Delivery Me thod Room Air 01/21/24 15:00 01/21/24 15:01 01/21/24 15:02 Temperature Pulse Rate 66 63 67 Pulse Rate [Pulse Oximeter] Respiratory Rate Blood Pressure 127/61 Blood Pressure [Ri ght Upper Arm] Pulse Oximetry 96 94 93 Oxygen Delivery Me thod 01/21/24 15:15 01/21/24 15:30 01/21/24 15:31 Temperature Pulse Rate 70 68 67 Pulse Rate [Pulse Oximeter] Respiratory Rate Blood Pressure 137/65 Blood Pressure [Ri ght Upper Arm] Pulse Oximetry 98 95 96 Oxygen Delivery Me thod 01/21/24 15:32 01/21/24 16:00 01/21/24 16:02 Temperature Pulse Rate 63 60 58 L Pulse Rate [Pulse Oximeter] Respiratory Rate Blood Pressure 147/71 H Blood Pressure [Ri ght Upper Arm] Pulse Oximetry 95 97 96 Oxygen Delivery Me thod 01/21/24 16:15 Temperature Pulse Rate 58 L Pulse Rate [Pulse Oximeter] Respiratory Rate Blood Pressure Blood Pressure [Ri ght Upper Arm] Pulse Oximetry 96 Oxygen Delivery Me thod This 83-year-old female is alert, interactive, no apparent distress. She is very talkative and pleasant. Sclera clear, conjugate gaze, extraocular muscles intact. Did get 2 beats of left beating nystagmus, otherwise see no nystagmus. Symmetrical facial function oropharynx normal. Able speak in complete sentences. She has no palpable neck masses, no adenopathy. There is no midline tenderness over her spine. She actually has pretty good range of motion of her neck although she states it does hurt more turning to the right in the upper right neck. Good range of motion through her shoulders. Strength in her arms is 5/5 and symmetric. CV regular rate and rhythm, lungs are clear, breathing easily on room air. Patient was ambulatory into the ED of her own accord. Documenting provider has reviewed patient's vital signs: yes Course Course ED Course: Will obtain a CT of her cervical spine. She is most concerned about a possible injury in her neck. She does report neck issues since 1976. Right now, she is neurologically intact. We did discuss MRI looks at the discs and the nerves better but she is not presenting with radiculopathic features. She really is most concerned about the bones in a possible fracture in her neck. I think CT imaging will be sufficient to answer her concerns today. Reevaluation(s) Time of Reevaluation #1: 16:51 Reevaluation #1: Have reviewed her CT scan with her. There is no acute fracture, she does have significant degenerative changes of her cervical spine. She states her muscles get sore and tight, we discussed secondary tension type issues resulting from a cervical spine arthritis and degenerative changes. She has no symptoms to suggest any radiculopathy. Did discuss possibility of a muscle relaxant that she could use periodically, she does not want to take medicines. She would like to continue with her patient centered care specialist, did discuss massaged as well. She wondered if she jammed the something in her neck and caused a possible fracture, we are not seeing this. Discussed heat sometimes works better on arthritis in the neck, she can use ice or heat whichever makes her feel better. She does not want medications, could consider some Tylenol. She can continue to work with massage and her chiropractor as long as there are not forced adjustments. She will bring her CT report to the chiropractor so that they may review it. No need for MRI at this time, no evidence of any radiculopathy. Could be considered if in the future she does have evidence of radiculopathy or there further concerns for any myelopathy or cord issues, not seeing any of this at this time. Vital Signs Vital signs: Initial Vital Signs Temperature 96.9 F L 01/21/24 14:06 Temperature Source Temporal Artery Scan 01/21/24 14:06 Pulse Rate 69 01/21/24 14:06 Pulse Rhythm Regular 01/21/24 14:06 Respiratory Rate 16 01/21/24 14:06 Blood Pressure 115/69 01/21/24 14:06 Blood Pressure Mean 84 01/21/24 14:06 Blood Pressure Position Sitting 01/21/24 14:06 Pulse Oximetry 100 01/21/24 14:06 Oxygen Delivery Method Room Air 01/21/24 14:06 Vital Signs Temperature 96.9 F L 01/21/24 14:06 Pulse Rate 69 01/21/24 14:06 Respiratory Rate 16 01/21/24 14:06 Blood Pressure 115/69 01/21/24 14:06 Pulse Oximetry 100 01/21/24 14:06 Oxygen Delivery Method Room Air 01/21/24 14:06 Temperature 96.9 F L 01/21/24 14:06 Pulse Rate 58 L 01/21/24 16:15 Respiratory Rate 16 01/21/24 14:06 Blood Pressure 147/71 H 01/21/24 16:02 Pulse Oximetry 96 01/21/24 16:15 Oxygen Delivery Method Room Air 01/21/24 14:06 Medical Decision Making Imaging Data CT- Other: Attestation: I have reviewed the pertinent imaging results. Radiologist's impression: Patient: CALEB ESCALONA Facility:?[facility] Patient ID:?[id number] Site Patient ID:?[id number]. Site :?[id number] Study:?CT-Spine Cervical -01/21/2024 3:53:05 PM Ordering Physician:Leonora Luo Final Report: Indication: acute on chronic neck pain Technique: Noncontrast axial CT of the cervical spine with coronal and sagittal reformats are provided. Comparison: No prior studies available for comparison at this institution. Findings: The overall stature, alignment of the cervical spine is within normal limits. No fractures. Prevertebral soft tissues, cervical airway, dens and lateral masses are within normal limits. Mild scattered degenerative changes of the cervical spine. Moderate degenerative changes at the anterior atlantoaxial articulation. Secretions in the right posterior ethmoid air cells. Polypoid mucosal thickening in the right sphenoid sinus. The mastoid air cells, middle ear canals, and external auditory canals are unremarkable. C1-2: No spinal canal stenosis C2-3: Advanced left facet arthrosis. No significant spinal canal stenosis or neural foramen narrowing. C3-4: Uncovertebral joint hypertrophy. Moderate left facet arthrosis. No significant spinal canal stenosis or neural foraminal narrowing. C4-5: Moderate disc space narrowing. Disc osteophyte complex, uncovertebral joint hypertrophy and facet arthrosis. No significant spinal canal stenosis or neural foramen narrowing. C5-6: No significant spinal canal stenosis or neural foramen narrowing. C6-7: Severe interspace narrowing. Disc osteophyte complex results in mild spinal canal narrowing. No neural foramen narrowing. C7-T1: No significant spinal canal stenosis or neural foraminal narrowing. T1-T2: No significant spinal canal stenosis or neural foraminal narrowing. The lung apices are clear. Impression: 1. No convincing radiographic evidence of acute osseous injury. 2. Scattered degenerative changes of the cervical spine. Please note that all CT scans at this facility use dose modulation, iterative reconstruction, and/or weight-based dosing when appropriate to reduce radiation dose to as low as reasonably achievable. Dictated by Mark Daniels MD @ 01/21/2024 4:40:17 PM (Electronic Signature) Critical Care Time Critical Care Time Critical Care Time: No Discharge Plan Discharge Clinical Impression: Degenerative joint disease of cervical spine Qualifiers: Spinal osteoarthritis complication: without myelopathy or radiculopathy Qualified Code(s): M47.812 - Spondylosis without myelopathy or radiculopathy, cervical region Patient Disposition: Home, Self-Care Condition: Stable Instructions: Osteoarthritis (ED), Chronic Neck Pain (DC) Prescriptions: No Action cholecalciferol (vitamin D3) 50 mcg (2,000 unit) tablet 2,000 unit PO DAILY potassium gluconate 500 mg (83 mg) tablet 500 mg PO DAILY omega-3 acid ethyl esters 1 gram capsule 1 cap PO DAILY B-complex with vitamin C Capsule 1 cap PO DAILY Ocuvite with Lutein 300 mcg-200 mg-27 mg-2 mg tablet 1 tab PO DAILY PRN magnesium oxide 400 mg (241.3 mg magnesium) tablet 400 mg PO DAILY capecitabine [Xeloda] 500 mg tablet 1,500 mg PO BID Qty: 84 1RF Rx Instructions: for 14 days per 21-day cycle; must administer with water 30 minutes after a meal omeprazole 40 mg capsule,delayed release(DR/EC) 40 mg PO ONCE Qty: 90 3RF acetaminophen [Tylenol Extra Strength] 500 mg tablet 500 mg PO Q6H PRN Calcium Magnesium 500 mg calcium -250 mg tablet PO .qd Follow Up/Referrals: Brii Browne, PAINTER AIRBRUSH, ACCOUNTS PAYABLE PAYROLL COORDINATOR [Primary Care Provider] - Stand Alone Forms: MyHealth Info Instructions
--- NOTE | 2024-01-21 15:27 | CRLHL7_ITS ---
For Patients: As a result of the Century Cures Act, medical imaging exams and procedure reports are released immediately into your electronic medical record. You may view this report before your referring provider. If you have questions, please contact your health care provider. Indication: acute on chronic neck pain Technique: Noncontrast axial CT of the cervical spine with coronal and sagittal reformats are provided. Comparison: No prior studies available for comparison at this institution. Findings: The overall stature, alignment of the cervical spine is within normal limits. No fractures. Prevertebral soft tissues, cervical airway, dens and lateral masses are within normal limits. Mild scattered degenerative changes of the cervical spine. Moderate degenerative changes at the anterior atlantoaxial articulation. Secretions in the right posterior ethmoid air cells. Polypoid mucosal thickening in the right sphenoid sinus. The mastoid air cells, middle ear canals, and external auditory canals are unremarkable. C1-2: No spinal canal stenosis C2-3: Advanced left facet arthrosis. No significant spinal canal stenosis or neural foramen narrowing. C3-4: Uncovertebral joint hypertrophy. Moderate left facet arthrosis. No significant spinal canal stenosis or neural foraminal narrowing. C4-5: Moderate disc space narrowing. Disc osteophyte complex, uncovertebral joint hypertrophy and facet arthrosis. No significant spinal canal stenosis or neural foramen narrowing. C5-6: No significant spinal canal stenosis or neural foramen narrowing. C6-7: Severe interspace narrowing. Disc osteophyte complex results in mild spinal canal narrowing. No neural foramen narrowing. C7-T1: No significant spinal canal stenosis or neural foraminal narrowing. T1-T2: No significant spinal canal stenosis or neural foraminal narrowing. The lung apices are clear. Impression: 1. No convincing radiographic evidence of acute osseous injury. 2. Scattered degenerative changes of the cervical spine. Please note that all CT scans at this facility use dose modulation, iterative reconstruction, and/or weight-based dosing when appropriate to reduce radiation dose to as low as reasonably achievable. Dictated by Mark Daniels MD @ 01/21/2024 4:40:17 PM (Electronically Signed)
--- OUTSIDE RECORDS SUMMARY | 2024-01-21 15:38 | XMS_ITS | Clinical Summary ---
Author Organization [facility] Address [address] [place] [address] Care Team Providers Care City Carrier Name Role Phone Elsewhere, Pcp Primary Care Provider Unavailabl e Source Comments Patient records contain information from all sites at [facility]. For routine questions regarding patient records, call [phone] during business hours, M-F 8:00 AM - 5:00 PM Central Time. Record requests for emergency care only can be directed to [phone] at any time.[facility] Allergies Active Allergy Reactions Criticality Noted Date Comments Latex Other (see comments) 04/29/2018 Only reacts to powdered latex gloves Medications Medication Sig Dispensed Refills Start Date End Date Status vitamin A,C,K-ajzwnr-ftexhb ls (OCUVITE W/LUTEIN) 1,000 Unit-200 mg-60 Unit-2 mg tablet Take 1 tablet by mouth 2 (two) times a day. Active cholecalciferol, vitamin D3, (cholecalciferol) 1,000 Unit tablet Take 1,000 Units by mouth daily. Active MAGNESIUM ORAL Take by mouth daily. Active omega 7-wvv-fcj-fish oil 1,000 mg (120 mg-180 mg) capsule [...] CDT Hospital Encounter Outpatient Procedure Center in [address] [phone] Brock Bailey M.D. 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 Return Call Request from Last 3 Months Immunizations Name Administration [...] weeks of ag e Hypertension Daughter 1 nichol Hypertension Daughter 2 [...] alcohol) 1 or 2 weekly (not always) [facility] Utilities Answer Date Recorded In the past 12 months has [employer], gas, oil, or water company threatened [...] week 05/13/2021 How often do you attend [facility] or nondenominational services? 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 Last Filed Vital Signs Vital Sign Reading Time Taken Comments Blood Pressure 132/78 05/13/2021 9:[address] Pulse 77 05/13/2021 9:43 AM CDT Temperature 36.2 ??C (97.1 ??F) 05/13/2021 9:43 AM CD T Respiratory Rate 16 05/13/2021 9:43 AM CDT Oxygen Saturation 97% 10/02/2019 9:37 AM 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 [address] [place] [address] Health Maintenance Due Date Last Done Comments Zoster Vaccines (3 of 3) 07/28/2020 06/02/2020, 11/04 COVID-19 Vaccine (2022-2 4 season) 2023 06/14/2022, 05/13/2021, 10/02/2020, Additional [...] Left Eye (12/10/2023 1:15 PM CDT) Narrative OPHTHALMOL NON-IMAGING ORDERS - 12/10/2023 1:21 PM CDT [...] 25 mg/mL ??Route: intravitreal, Site: Left Eye ??[facility]: 52741-078-57 Balanced salt solution irrigation to injected eye [...] given if requested. Avastin L eye Lot [id number] Exp 02/18/2024 [facility] [id number] Brock Bailey M.D. OPHTH CLINIC PROCED URES OPHTHALMOL NON-IMAGING ORDERS * Optical Coherence Tomography - Macula/Retina - OU - Both Eyes (12/07/2023 8:00 AM CDT) Narrative OPHTHALMOLOGY IMAGING EXAM - 12/07/2023 9:49 AM CDT Right Eye OCT device used was Spectralis . Left Eye OCT device used was Spectralis . Notes See note from visit on 12/07/2023. Brock Bailey M.D. 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 See document viewer. Healthcare Agents on File Name Relationship Healthcare Agent Relationship Communication Nichol Cain Daughter Health Care Agent [email or web address] Care Teams City Carrier Relationship Specialty Start Date End Date Elsewhere, Pcp PCP - General Internal Medicine 12/16/21
--- OUTSIDE RECORDS SUMMARY | 2024-01-21 15:38 | XMS_ITS ---
Author Organization [facility] Address [address] [place] [address] Care Team Providers Care Plant Guard Name Role Phone Unavailable Unavailable Unavailable Surgery Details Not on file Complications Check Surgery Details section. Procedure Estimated Blood Loss Check Surgery Details section. Procedure Findings Check Surgery Details section. Procedure Specimens Taken Check Surgery Details section.
--- OUTSIDE RECORDS SUMMARY | 2024-01-21 15:38 | XMS_ITS | Referral Summary ---
Author Organization [facility] Address [address] [place] [address] Care Team Providers Care Coil Taper Name Role Phone Elsewhere, Pcp Primary Care Provider Unavailabl e Source Comments Patient records contain information from all sites at [facility]. For routine questions regarding patient records, call [phone] during business hours, M-F 8:00 AM - 5:00 PM Central Time. Record requests for emergency care only can be directed to [phone] at any time.[facility] Encounters Date Type Department Care Team Description 12/10/2023 12:41 PM CDT - 12/10/2023 11:59 PM CDT Hospital Encounter Outpatient Procedure Center in [address] [address] Brock Bailey M.D. 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 Return Call Request from Last 3 Months Allergies Active Allergy Reactions Criticality Noted Date Comments Latex Other (see comments) 04/29/2018 Only reacts to powdered latex gloves Medications Medication Sig Dispensed Refills Start Date End Date Status vitamin A,C,L-jsaxop-suuecg ls (OCUVITE W/LUTEIN) 1,000 Unit-200 mg-60 Unit-2 mg tablet Take 1 tablet by mouth 2 (two) times a day. Active cholecalciferol, vitamin D3, (cholecalciferol) 1,000 Unit tablet Take 1,000 Units by mouth daily. Active MAGNESIUM ORAL Take by mouth daily. Active omega 5-zyr-zca-fish oil 1,000 mg (120 mg-180 mg) capsule [...] alcohol) 1 or 2 weekly (not always) [facility] Utilities Answer Date Recorded In the past 12 months has [facility] [employer], gas, oil, or water [employer] threatened to shut off services in your [...] often do you attend chur ch or advent services? 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 Last Filed Vital Signs Vital Sign Reading Time Taken Comments Blood Pressure 132/78 05/13/2021 9:[address] Pulse 77 05/13/2021 9:43 AM CDT Temperature 36.2 ??C (97.1 ??F) 05/13/2021 9:43 AM CD T Respiratory Rate 16 05/13/2021 9:43 AM CDT Oxygen Saturation 97% 10/02/2019 9:37 AM SCHOOL PSYCHOLOGY PROFESSOR Inhaled Oxygen Concentration - - Weight 66.7 kg (147 lb 0.8 oz) 05/13/2021 9:43 A M CDT Height 163 cm (5' 4.17) 05/13/2021 9:43 AM CDT Body Mass Index 25.1 05/13/2021 9:43 AM CDT Plan of Treatment Upcoming Encounters Date Type Department Care Team (Late st Contact Info) Description 02/14/2024 10:20 AM CDT Appointment Outpatient Procedure Center in [address] [phone] Brock Bailey M.D. [address] [place] [address] Procedures Procedure Name Priority Date/Time Associated Diagnosis [...] - Left Eye (12/10/2023 1:15 PM CDT) [facility] OPHTHALMOLGY NON-IMAGING ORDERS - 12/10/2023 [...] ??Route: intravitreal, Site: Left Eye ??[facility]: 61334-066-96 Balanced salt solution irrigation to injected eye after the injection was Done. Hand motion was present. Count fingers was correct. Reviewed instructions and patient verbalizes understanding. Ancillary Staff Ancillary Staff: Sherie Slater RN and Tricia Malik, RN. Notes Patient oriented to outpatient procedure center. ??Reviewed process for scheduled procedure, and pain management including pain scale. Patient declines written post-procedure material or previously received brochure. ?? Information reviewed and understanding assessed by teach-back. ??Follow-up appointments discussed and return schedule given if requested. Avastin L eye Lot [id number] Exp 02/18/2024 [facility] [id number] Brock Bailey M.D. OPHTH CLINIC PROCED URES OPHTHALMOLGY NON-IMAGING ORDERS * Optical Coherence Tomography - Macula/Retina - OU - Both Eyes (12/07/2023 8:00 AM CDT) Narrative OPHTHALMOLOGY IMAGING EXAM - 12/07/2023 9:49 AM CDT Right Eye OCT device used was Spectralis . Left Eye OCT device used was Spectralis . Notes See note from visit on 12/07/2023. Brock Bailey M.D. OPHTH TOMOGRAPHY Performing Organization Address [facility] Co de Phone Number OPHTHALMOLOGY IMAGING EXAM from Last 3 Months Advance Directives For more information, please contact: [phone] Documents on File Type Date Recorded Patient Bank Guard Expl anation Advance Directives 03/26/2018 10:40 AM [place] [facility] [place] Advance Directives 03/26/2018 10:40 AM Camille sandi Bequest to [facility] Advance Directives 04/30/2010 12:00 AM Leg acy document. See document viewer. Healthcare Agents on File Name Relationship Healthcare Agent Relationship Communication Nichol Cain Daughter Health Care Agent [email or web address] Care Teams Coil Taper Relationship Specialty Start Date End Date Elsewhere, Pcp PCP - General Internal Medicine 12/16/21
--- OUTSIDE RECORDS SUMMARY | 2024-01-21 15:38 | XMS_ITS | Clinical Summary ---
Author Organization [facility] Address [place], [place] [address] Care Team Providers Care Roll Repairer Name Role Phone Jeancarlos Oquendo Primary Care Provider [phone] Allergies Active Allergy Reactions Criticality Noted Date Comments Latex *Unknown 05/09/2020 Per note from [place] pt only reacts to latex powdered gloves [...] Documents on File Type Date Recorded Patient Integration Project Manager Expl anation Healthcare Directive 03/26/2018 8:03 AM 8 15-18 * Full Code (Latest Code Status on File) Date Activated Date Inactivated Comments 03/25/2015 7:59 AM 03/25/2015 11:57 AM Care Teams Roll Repairer Relationship Specialty Start Date End Date Jeancarlos Oquendo PA PCP - General Physician Machine Castings Plasterer 05/09/20
--- OUTSIDE RECORDS SUMMARY | 2024-01-21 15:38 | XMS_ITS | Encounter Summary ---
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 [address] [place] [address] [facility] Region Referral ID Status Reason Start Date Expiration Date Visits Re quested Visits Authorized [id number] Closed 02/23/2023 02/23/2024 3 3 Encounter Details Date Type Department Care Team (Latest Contact Info) Description 12/10/2023 12:41 PM CDT - 12/10/2023 11:59 PM CDT Hospital Encounter Outpatient Procedure Center in [place] [address] [place] [address] Brock Bailey M.D. 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 Patient declined 05/13/2021 Do you belong to any clubs o r organizations such as restorationism groups, unions, fraternal or athletic groups, [...] Answer Date Recorded PHQ-2 Score 0 10/14/2020 [facility] of Occupat ional [facility] - Occupational Stress Questionnaire Answer [...] Choose not to disclose 2022 3:32 PM RN CLINICAL DOCUMENTATION documented as of this encounter Medications at [...] MAGNESIUM ORAL Take by mouth daily. omega 2-vjo-iyg-fish oil 1,000 mg (120 mg-180 mg) capsule Take by mouth daily. potassium 99 mg tablet Daily simvastatin (ZOCOR) 20 mg tablet TAKE 1 TABLET(20 MG) BY MOUTH AT BEDTIME 90 tablet 12/16/2021 vitamin A,C,W-opuqks-umccomot (OCUVITE W/LUTEIN) 1,000 Unit-200 mg-60 Unit-2 mg tablet Take 1 tablet by mouth 2 (two) times a day. documented as of this encounter Plan of Treatment Upcoming Encounters Date Type Department Care Team (Late st Contact Info) Description 02/14/2024 10:20 AM CDT Appointment Outpatient Procedure Center in [address] [address] Brock Bailey M.D. [address] [place] [address] documented as of this encounter Procedures Procedure [...] 25 mg/mL ??Route: intravitreal, Site: Left Eye ??[facility]: 30825-361-69 Balanced salt solution irrigation to injected eye [...] given if requested. Avastin L eye Lot [id number] Exp 02/18/2024 [facility] 17742-829-59 Brock Bailey M.D. OPHTH CLINIC PROCED URES [...] Total Score: 0 09/23/19 19 10:58 AM RN CLINICAL DOCUMENTATION documented as of this encounter Care Teams Vice President Risk Management Relationship Specialty Start Date End Date Elsewhere, Pcp PCP - General Internal Medicine 12/16/21 documented as of this encounter
--- OUTSIDE RECORDS SUMMARY | 2024-01-21 15:39 | XMS_ITS | Encounter Summary ---
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 [address] [place] [address] [facility] Region Referral ID Status Reason Start Date Expiration Date Visits Re quested Visits Authorized [id number] Closed 08/03/2023 08/02/2024 3 3 Encounter Details Date Type Department Care Team (Latest Contact Info) Description 10/15/2023 12:37 PM CDT - 10/15/2023 11:59 PM CDT Hospital Encounter Outpatient Procedure Center in [place] [address] [place] [address] Brock Bailey M.D. 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 Patient declined 05/13/2021 Do you belong to any clubs o r organizations such as scientology groups, unions, fraternal or athletic groups, [...] Answer Date Recorded PHQ-2 Score 0 10/14/2020 [facility] of Occupat ional [facility] - Occupational Stress Questionnaire Answer Date [...] Choose not to disclose 2022 3:32 PM SUBSCRIPTION AGENT documented as of this encounter Medications at [...] MAGNESIUM ORAL Take by mouth daily. omega 7-moo-pye-fish oil 1,000 mg (120 mg-180 mg) capsule Take by mouth daily. potassium 99 mg tablet Daily simvastatin (ZOCOR) 20 mg tablet TAKE 1 TABLET(20 MG) BY MOUTH AT BEDTIME 90 tablet 12/16/2021 vitamin A,C,Y-naehnw-qqoruuzp (OCUVITE W/LUTEIN) 1,000 Unit-200 mg-60 Unit-2 mg tablet Take 1 tablet by mouth 2 (two) times a day. documented as of this encounter Plan of Treatment Upcoming Encounters Date Type Department Care Team (Late st Contact Info) Description 02/14/2024 10:20 AM CDT Appointment Outpatient Procedure Center in [address] [phone] Brock Bailey M.D. [address] [place] [address] documented as of this encounter Procedures Procedure [...] 25 mg/mL ??Route: intravitreal, Site: Left Eye ??[facility]: 16004-793-92 Balanced salt solution irrigation to injected eye [...] given if requested. Left Eye Avastin [place]: ??27279-218-85 Lot# [id number] Exp. 11/13/23 No complication. Kiran Bowling MD [...] Total Score: 0 09/23/19 19 10:58 AM SUBSCRIPTION AGENT documented as of this encounter Care Teams Manager Power Relationship Specialty Start Date End Date Elsewhere, Pcp PCP - General Internal Medicine 12/16/21 documented as of this encounter
--- OUTSIDE RECORDS SUMMARY | 2024-01-21 15:39 | XMS_ITS | Encounter Summary ---
Author Organization [facility] Address [address] [place] [address] Care Team Providers Care Laboratory Chief Name Role Phone Elsewhere, Pcp Primary Care Provider Unavailabl e Reason for Referral * Outpatient (Routine) - Authorized Specialty Diagnoses / Procedures Referred By Betzy jimenez Referred To Contact Ophthalmology Brock Bailey M.D. [address] [place] [address] 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 [address] [place] [address] [facility] Region Referral ID Status Reason Start Date Expiration Date V isits Requested Visits Authorized [id number] Authorized 12/07/2023 12/06/2024 3 3 Reason for Visit * Outpatient (Routine) - Closed Specialty Diagnoses / Procedures Referred By Contac t Referred To Contact Ophthalmology Brock Bailey M.D. [address] [place] [address] [facility] Region Referral ID Status Reason Start Date Expiration Date Visits Re quested Visits Authorized [id number] Closed 08/03/2023 08/02/2026 1 1 Encounter Details Date Type Department Care Team (Latest Contact Info) Description 12/07/2023 8:00 AM CDT Office Visit Department of Ophthalmology in [place], [place] [address] [place] [phone] Brock Bailey M.D. 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 - 12/07/2023 8:00 AM CDTAddended by: DOUG HA on: 12/07/2023 11:04 AM Modules accepted: Orders documented in this encounter Plan of Treatment Upcoming Encounters Date Type Department Care Team (Late st Contact Info) Description 02/14/2024 10:20 AM CDT Appointment Outpatient Procedure Center in [address] [phone] Brock Bailey M.D. [address] [place] [phone] Scheduled Orders Name Type Priority Associated Diagnoses [...] Total Score: 0 09/23/19 19 10:58 AM FORGEMAN HELPER documented as of this encounter Care Teams Laboratory Chief Relationship Specialty Start Date End Date Elsewhere, Pcp PCP - General Internal Medicine 12/16/21 documented as of this encounter
--- OUTSIDE RECORDS SUMMARY | 2024-01-21 15:39 | XMS_ITS | Encounter Summary ---
Author Organization [facility] Address [address] [place] [address] Care Team Providers Care Laborer Heading Name Role Phone Elsewhere, Pcp Primary Care Provider Unavailabl e Reason for Visit * Reason Onset Date Comments Return Call Request 11/16/2023 Encounter Details Date Type Department Care Team (Latest Contact Info) Description 11/16/2023 Clinical Communication Department of Ophthalmology in [place], [place] [address] [place] [address] Brock Bailey M.D. [address] [place] [address] Return Call Request Social History Tobacco Use Types Packs/Day Years Used Date Smoking Tobacco: Former Cigarettes Q uit: 1986 Smokeless Tobacco: Never Comments:occasional smoker Alcohol Use Standard Drinks/Week Comments Yes 0 (1 standard drink = 0.6 oz pur e alcohol) 1 or 2 weekly (not always) [facility] Utilities Answer Date Recorded In the past 12 months has [employer], gas, oil, or water [employer] threatened to shut off services in your [...] often do you attend chur ch or quaker services? Patient declined 05/13/2021 Do you belong to any clubs o r organizations such as voodoo groups, unions, fraternal or athletic groups, [...] Choose not to disclose 2022 3:32 PM WAX BLENDER documented as of this encounter Plan of Treatment Upcoming Encounters Date Type Department Care Team (Late st Contact Info) Description 02/14/2024 10:20 AM CDT Appointment Outpatient Procedure Center in [address] [phone] Brock Bailey M.D. [address] [place] [address] documented as of this encounter Visit Diagnoses Not on filedocumented in this encounter Additional Health Concerns Assessment Noted Time PHQ-9 Depression Total Score: 0 09/23/19 19 10:58 AM WAX BLENDER documented as of this encounter Care Teams Laborer Heading Relationship Specialty Start Date End Date Elsewhere, Pcp PCP - General Internal Medicine 12/16/21 documented as of this encounter
== END 2024-01-21 17:17 | disposition home or self-care (01) ==
PROVIDERS: Emergency Provider Family Medicine; PCP Nurse Practitioner Family
DX: M47.812 Spondylosis without myelopathy or radiculopathy, cervical region (principal)
CPT/HCPCS: 72125; 99283

== ENCOUNTER 2024-01-23 11:17 | Outpatient (RCR) | payer MEDICARE, BC, SELFPAY ==
[2024-01-23 11:38] LABS: Basophils Absolute Auto 0.02 K/uL (0.00-0.30); Basophils Percent Auto 0.4 % (0.0-3.0); Eosinophils Absolute Auto 0.04 K/uL (0.00-0.50); Eosinophils Percent Auto 0.8 % (0.0-7.0); Hematocrit 39.8 % (33.0-51.0); Hemoglobin* 13.5 gm/dL (12.0-16.0); Immature Granulocytes Abs Auto 0.01 K/uL (0.00-0.30); Immature Granulocytes Pct Auto 0.2 %; Lymphocytes Absolute Auto 1.33 K/uL (0.90-2.90); Lymphocytes Percent Auto 25.9 % (20-44); Mean Corpuscular HGB Conc 34 gm/dL (32-36); Mean Corpuscular Hemoglobin 31 pg (26-34); Mean Corpuscular Volume 91 fL (80-100); Monocytes Percent Auto 7.8 % (0.0-11.0); Neutrophils Absolute Auto 3.33 K/uL (1.7-7.0); Neutrophils Percent Auto 64.9 % (42.0-72.0); Platelet Count* 212 K/uL (140-440); White Blood Count* 5.13 K/uL (4.50-11.00)
[2024-01-23 11:41] LABS: Slide Review Reflex No
[2024-01-23 11:59] LABS: Albumin* 4.4 g/dL (3.3-5.0); Chloride* 103 mmol/L (96-114); Sodium* 138 mmol/L (135-149)
[2024-01-23 12:00] LABS: Potassium* 4.3 mmol/L (3.6-5.1)
[2024-01-23 12:02] LABS: Alanine Aminotransferase* 14 U/L (4-35); Alkaline Phosphatase* 62 U/L (40-150); Anion Gap 7 mEq/L (7-15); Aspartate Amino Transferase* 28 U/L (12-35); Bilirubin Total* 0.6 mg/dL (0.1-1.5); Blood Urea Nitrogen* 15 mg/dL (7-30); Carbon Dioxide* 28 mmol/L (20-32); Creatinine* 0.6 mg/dL (0.5-1.5); Estimated Glomerular Filt Rate 88 ml/min; Glucose* 135 mg/dL (60-115); Total Protein* 7.2 g/dL (6.0-8.3)
[2024-01-23 12:03] LABS: Calcium* 10.4 mg/dL (8.4-10.6)
[2024-01-24 17:03] LABS: Carcinoembryonic Antigen 1.8 ng/mL
--- NOTE | 2024-06-09 09:35 | ONC.NURNOTE ---
was told by Haley that she will not be having her 6 month scans at [place], she has transferred her care to Dr. Willis in [facility] in [place]. Director Utilization Management will have her scans cancelled here.
== END 2024-07-21 23:59 | disposition home or self-care (01) ==
LOC: CCIC 11:17
PROVIDERS: PCP Nurse Practitioner Family; Visit Provider Internal Medicine Hematology & Oncology
DX: C18.9 Malignant neoplasm of colon, unspecified (principal); C77.2 Secondary and unspecified malignant neoplasm of intra-abdominal lymph nodes
CPT/HCPCS: 36415; 80053; 82378; 85025; 99214; G0463